=== PATIENT | male | born 1945 | race Caucasian/White ===

== ENCOUNTER 2021-12-07 08:05 | Emergency (ER) | payer MEDICARE, SELFPAY ==
[2021-12-07 08:10] VITALS: BP 175/94; PULSE 53; RESP 18; TEMP 36.6; O2SAT 96; BMI 26.6
--- NOTE | 2021-12-07 08:17 | ED.GENADULT ---
HPI - General Adult General Time Seen by Provider: 08:18 Date Seen: 12/07/21 Chief complaint: Back Injury/Pain Stated complaint: fall/severe back pain Time Seen by Provider: 12/07/21 08:12 Source: patient and RN notes reviewed Mode of arrival: ambulatory Limitations: no limitations History of Present Illness HPI narrative: Patient is a 76-year-old male whom is coming in with left low back pain. His reports them to be quite stoic and not someone who would use the ER. On Tuesday he was pulling a 2 wheeled cart up stairs and lost his balance, falling backwards landing over log. He is not having any pain radiating into the legs at all. It is isolated in the left low back. Walking or moving seem to be the worst. He is sleeping okay. Once he lies down it seems to feel better. There is no numbness or tingling in his legs. He did not hit his head, no loss of consciousness. He is on an 81 mg aspirin daily but no other blood thinners. Devora has been helping. He last used some about an hour and a half ago. He has not tried any Tylenol. He has used some narcotics in the past for surgeries, does not remember anything that he does not tolerate. He does have a history of a back surgery with plating in his lumbar spine about 20 some years ago. He had a fall about 20 ft and sounds like he had a compression fracture that required stabilization. This injury happened about 2 days ago, today is Tuesday. Related Data Home Medications Medication Instructions Recorded Confirmed finasteride 5 mg tablet mg 12/07/21 metoprolol succinate 25 mg mg PO 12/07/21 tablet,extended release 24 hr rosuvastatin 20 mg tablet mg 12/07/21 Allergies Allergy/AdvReac Type Severity Reaction Status Date / Time No Known Drug Allergies Allergy Verified 12/07/21 08:15 Review of Systems Status of ROS: Reports: 10 or more systems reviewed and unremarkable except as noted in History and below PFSH PFS Social History Smoking Status: Former smoker What tobacco products do you use: cigarettes Smoking packs per day: 20 Smoking cigarettes per day: 400.0 Years smoked: 20 Smoking pack-years: 400.00 Smoking quit date/years: >15 years ago Do you use any of these nicotine containing products: None How often do you have a drink containing alcohol: 2-3 times a week How many standard drinks containing alcohol do you have on a typical day: 1 or 2 How often do you have six or more drinks on one occasion: Monthly AUDIT-C Alcohol total score: 5 Non-prescribed substance use: denies use service: No Exam Const: Vital Signs, click to edit/add: Vital Signs - 24 hr 12/07/21 08:10 12/07/21 09:16 Temperature 97.8 F 98.5 F Pulse Rate [Right Pulse Oximeter] 53 L 52 L Respiratory Rate 18 16 Blood Pressure [Le ft Upper Arm] 175/94 H 144/81 H Pulse Oximetry 96 96 Oxygen Delivery Me thod Room Air Room Air Documenting provider has reviewed patient's vital signs: yes Common normals: average body habitus, oriented x3, no limitations, healthy appearing, alert and well nourished General appearance: cooperative and comfortable (But gets some pain with movement) Other: With moving, he will grab at his left low back area. Describes acute pain with movement. HENMT: Common normals: normocephalic, head/scalp atraumatic and hearing grossly normal bilaterally Head and scalp: normocephalic and atraumatic Eye: Common normals: PERRL, EOMs intact bilaterally, conjunctivae normal and no scleral icterus Conjunctiva: conjunctiva(e) normal Pupil: PERRL Neck & C-Spine: Common normals: full ROM, no lymphadenopathy, supple, no meningeal signs, no JVD and thyroid normal Thyroid: thyroid normal Chest: Common normals: inspection of chest normal Resp: Common normals: normal respiratory effort, no retractions, no use of accessory muscles and clear to auscultation bilaterally Auscultation: clear to auscultation bilaterally Cardio: Common normals: no JVD, regular rate, regular rhythm, S1 normal heart sound, S2 normal heart sound, no gallops, no clicks, no murmurs and no rub Rate: regular rate Rhythm: regular rhythm Heart sounds: S1 normal and S2 normal : Common normals: no CVA tenderness Bladder/kidney exam: no CVA tenderness Back & Pelvis: Common normals: no CVA tenderness, thoracic and lumbar spine normal to inspection, no thoracic nor lumbar tenderness and straight leg raise negative bilaterally Other: Has palpable tenderness more over the top of the left SI joint. He states it hurts when I palpate over that area. There is no visible skin changes, no palpable abnormalities other than the pain. He has a well-healed midline scar over the lumbar area. Extremity: Common normals: normal to inspection, full ROM, normal capillary refill (Also has normal distal sensation), no joint enlargement, no clubbing, cyanosis or edema, no calf tenderness and no pedal edema Neuro: Common normals: oriented x3 Sensorium/orientation: alert Meningeal signs: no meningeal signs Course Course Hospital Course: Reviewed with patient and his that we will give a dose of Tylenol. I am ordering a 1000 mg. I reviewed with them that I would like to use Tylenol as the base and build from there. We certainly will work on his pain management and consider options upon discharge. We will be obtaining lumbar spine and SI joints, plain films. We need to ensure no acute traumatic significant fracture. This certainly could be musculoskeletal. Reevaluation(s) Reevaluation #1: Patient is leaving AMA as he needs to get to the bank. He is neurologically intact. Have discussed with them that I have contacted [facility], his images are down at [facility] and thus I hopefully will be able to talk to someone at this point. With the L1 and L2 transverse process fracture, these are typically is stable finding but he understands that this is beyond my expertise. I have spoken with 1 of the triage nurses at 12:22 p.m.. She will be attempting to get be in contact with 1 of the physicians. The meantime, the patient has opted to sign VERNONIA. He understands that I am still going to talk to this physician, may need him to do further treatment or return based on my conversation that is pending. Time: 12:30 Consultations Consultation #1: Spoke with radiology regarding the x-ray findings. The radiologist did agree that we should proceed with lumbar CT just to ensure that there were no acute findings with this broken L4 pedicle screw. I have let the patient know. At this time his pain is good, no pain. He is sitting in a chair. He agrees to proceeding with a lumbar CT. Time: 09:40 Consultation #2: Spoke with Dr. Hardwick from [facility]. The L3 screw being broken is not new. He can see it on at abdomen pelvis CT from March 2020. As for the other findings, he states it would just be brace for comfort, pain management. Reviewed with him that we would not probably get a TLSO done in a timely fashion but could do pain management and physical therapy. He thought that was appropriate. I will let the patient know the findings and my discussion with Dr. Hardwcik. Time: 12:35 Vital Signs Vital signs: Initial Vital Signs Temperature 97.8 F 12/07/21 08:10 Temperature Source Temporal Artery Scan 12/07/21 08:10 Pulse Rate 53 L 12/07/21 08:10 Respiratory Rate 18 12/07/21 08:10 Blood Pressure 175/94 H 12/07/21 08:10 Blood Pressure Mean 121 12/07/21 08:10 Blood Pressure Position Sitting 12/07/21 08:10 Pulse Oximetry 96 12/07/21 08:10 Oxygen Delivery Method 12/07/21 08:10 Vital Signs Temperature 97.8 F 12/07/21 08:10 Pulse Rate 53 L 12/07/21 08:10 Respiratory Rate 18 12/07/21 08:10 Blood Pressure 175/94 H 12/07/21 08:10 Pulse Oximetry 96 12/07/21 08:10 Oxygen Delivery Method 12/07/21 08:10 Temperature 98.5 F 12/07/21 09:16 Pulse Rate 52 L 12/07/21 09:16 Respiratory Rate 16 12/07/21 09:16 Blood Pressure 144/81 H 12/07/21 09:16 Pulse Oximetry 96 12/07/21 09:16 Oxygen Delivery Method 12/07/21 09:16 Medical Decision Making Imaging Data X-ray sacroiliac joints: Attestation: I have reviewed the pertinent imaging results. Radiologist's impression: Patient: AMARI ADDISON Facility:?[facility] Patient ID:?[id number] Site Patient ID:?[id number]. Site :?1945 Study:?XRay Pelvis Bilateral SI JOINTS 3V-12/07/2021 9:05:48 AM Ordering Physician:Rommel Pandya Final Report: Indication: FALL, SI JOINT PAIN Technique: 3 views SI joints Comparison: None Findings: SI joints normal. No diastasis. Intact pubic rami and proximal femurs. Impression: No sign of acute injury. Dictated by Rico Cordero MD @ 12/07/2021 9:12:28 AM (Electronic Signature) X-ray lumbar spine: Attestation: I have reviewed the pertinent imaging results. Radiologist's impression: Patient: AMARI ADDISON Facility:?[facility] Patient ID:?[id number] Site Patient ID:?[id number]. Site :?1945 Study:?XRay Spine Lumbar 2 VIEW-12/07/2021 9:05:25 AM Ordering Physician:?Rmoulo Pandya Final Report: INDICATION: FALL, PAIN TECHNIQUE: 3-view lumbar spine. COMPARISON: none FINDINGS: Posterior fusion L2-L4. Broken L4 pedicle screw. Chronic wedging L3. Dense vascular calcifications. Prominent anterior spurring L1-2. Facet degeneration L4-5 and L5-S1. Chronic wedging T12. IMPRESSION: Broken pedicle screw at L4. No acute fractures. Dictated by Rico Cordero MD @ 12/07/2021 9:11:03 AM (Electronic Signature) CT- Other: Attestation: I have reviewed the pertinent imaging results. Radiologist's impression: Patient: AMARI ASHERAH Facility:?[facility] Patient ID:?[id number] Site Patient ID:?[id number]. Site :?1945 Study:?CT Spine Lumbar W/O-12/07/2021 10:15:39 AM Ordering Physician:Rommel Pandya Final Report: Indication: FALL, LBP, BROKEN PEDICLE SCREW ON XR Technique: Noncontrast axial CT of the lumbar spine with coronal and sagittal reformats are provided. Comparison: No prior studies are available for comparison at this institution. Lumbar radiograph 12/07/2021 Findings: Minimally displaced fracture through the left L1 and L2 transverse processes, potentially acute. There is mild straightening of lumbar lordosis. Normal clear tree is based on 5 lumbar-type vertebral bodies. Postoperative changes of L2-L4 posterior-lateral instrumented fusion with pedicle screws at the L2 and L4 levels joined by vertical rods. There is a fracture in the proximal 3rd of the left L4 pedicle screw. Chronic T12 and L3 superior endplate compression fracture. There is posterior osseous fusion of L2-L4 bilaterally. 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 T12-L1: No significant spinal canal stenosis or neural foramen narrowing. L1-2: Severe interspace narrowing. Mild disc bulge. Laminectomy changes. No significant spinal canal stenosis. Moderate left and mild right neural foramen narrowing. L2-3: Laminectomy and postop changes. No significant bony spinal canal stenosis or neural foramina narrowing. L3-4: Laminectomy postoperative changes. No significant bony spinal canal stenosis or neural foramina narrowing L4-5: Disc bulge, facet arthrosis and ligamentum flavum buckling results in moderate spinal canal stenosis. Mild neural foramen narrowing bilaterally. L5-S1: Advanced facet arthrosis right greater than left. Mild right subarticular recess narrowing. Moderate right neural foramen narrowing. No left neural foramina narrowing. Right iliac crest bone graft donor site. Impression: 1. Postoperative changes of L2-L4 posterior-lateral instrumented fusion with pedicle screws at the L2 and L4 levels joined by vertical rods. Laminectomy changes at L2 and L3. There is posterior osseous fusion of L2-L4 bilaterally. 2. There is a fracture in the proximal 3rd of the left L4 pedicle screw. 3. Minimally displaced fracture through the left L1 and L2 transverse processes, potentially acute. Chronic T12 and L3 superior endplate compression fracture. 4. Allowing for streak artifact from hardware, no significant spinal canal stenosis. Please note that all CT scans at this facility use dose modulation, iterative reconstruction, and/or weight-based dosing when appropriate to reduce radiation dose to as low as reasonably achievable. Dictated by Rico Young MD @ 12/07/2021 10:56:24 AM (Electronic Signature) Discharge Plan Discharge Clinical Impression: Closed fracture of transverse process of lumbar vertebra, Fall Additional Instructions: Did call patient back at 3:45 p.m. in gave him the recommendations as per Dr. Hardwick. The L3 screw break in the pedicle is not new. For the back issues, can consider doing TLSO brace, would have to get a referral through his primary care provider. Tylenol and/or ibuprofen per bottle directions for comfort. If this was not controlling pain can follow up with primary care provider for further pain management. Otherwise consider physical therapy as this may be beneficial, can get referral from primary care provider. Verbal instructions given over phone Prescriptions: No Action metoprolol succinate 25 mg tablet extended release 24 hr PO finasteride 5 mg tablet rosuvastatin 20 mg tablet Follow Up/Referrals: Osorio Galvan MD [Primary Care Provider] - Stand Alone Forms: [employer] Info Instructions Discharge Comment: pt left AMA at 12:30, discussed with patient physician will be calling.
--- NOTE | 2021-12-07 08:26 | CRLHL7_ITS ---
For Patients: As a result of the Cures Act, medical imaging exams and procedure reports are released immediately into your electronic medical record. You may view this report before your referring provider. If you have questions, please contact your health care provider. INDICATION: FALL, PAIN TECHNIQUE: 3-view lumbar spine. COMPARISON: none FINDINGS: Posterior fusion L2-L4. Broken L4 pedicle screw. Chronic wedging L3. Dense vascular calcifications. Prominent anterior spurring L1-2. Facet degeneration L4-5 and L5-S1. Chronic wedging T12. IMPRESSION: Broken pedicle screw at L4. No acute fractures. Dictated by Rico Cordero MD @ 12/07/2021 9:11:03 AM (Electronically Signed)
--- NOTE | 2021-12-07 08:26 | CRLHL7_ITS ---
For Patients: As a result of the Cures Act, medical imaging exams and procedure reports are released immediately into your electronic medical record. You may view this report before your referring provider. If you have questions, please contact your health care provider. Indication: FALL, SI JOINT PAIN Technique: 3 views SI joints Comparison: None Findings: SI joints normal. No diastasis. Intact pubic rami and proximal femurs. Impression: No sign of acute injury. Dictated by Rico Cordero MD @ 12/07/2021 9:12:28 AM (Electronically Signed)
[2021-12-07] MEDS: ACETAMINOPHEN 500 MG TABLET 1000 MG PO (08:31)
--- NOTE | 2021-12-07 08:45 | PC.NURSE ---
pt to radiology, walk with sba.
[2021-12-07 09:16] VITALS: BP 144/81; PULSE 52; RESP 16; TEMP 36.9; O2SAT 96
--- NOTE | 2021-12-07 09:39 | CRLHL7_ITS ---
For Patients: As a result of the Century Cures Act, medical imaging exams and procedure reports are released immediately into your electronic medical record. You may view this report before your referring provider. If you have questions, please contact your health care provider. Indication: FALL, LBP, BROKEN PEDICLE SCREW ON XR Technique: Noncontrast axial CT of the lumbar spine with coronal and sagittal reformats are provided. Comparison: No prior studies are available for comparison at this institution. Lumbar radiograph 12/07/2021 Findings: Minimally displaced fracture through the left L1 and L2 transverse processes, potentially acute. There is mild straightening of lumbar lordosis. Normal clear tree is based on 5 lumbar-type vertebral bodies. Postoperative changes of L2-L4 posterior-lateral instrumented fusion with pedicle screws at the L2 and L4 levels joined by vertical rods. There is a fracture in the proximal 3rd of the left L4 pedicle screw. Chronic T12 and L3 superior endplate compression fracture. There is posterior osseous fusion of L2-L4 bilaterally. 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 T12-L1: No significant spinal canal stenosis or neural foramen narrowing. L1-2: Severe interspace narrowing. Mild disc bulge. Laminectomy changes. No significant spinal canal stenosis. Moderate left and mild right neural foramen narrowing. L2-3: Laminectomy and postop changes. No significant bony spinal canal stenosis or neural foramina narrowing. L3-4: Laminectomy postoperative changes. No significant bony spinal canal stenosis or neural foramina narrowing L4-5: Disc bulge, facet arthrosis and ligamentum flavum buckling results in moderate spinal canal stenosis. Mild neural foramen narrowing bilaterally. L5-S1: Advanced facet arthrosis right greater than left. Mild right subarticular recess narrowing. Moderate right neural foramen narrowing. No left neural foramina narrowing. Right iliac crest bone graft donor site. Impression: 1. Postoperative changes of L2-L4 posterior-lateral instrumented fusion with pedicle screws at the L2 and L4 levels joined by vertical rods. Laminectomy changes at L2 and L3. There is posterior osseous fusion of L2-L4 bilaterally. 2. There is a fracture in the proximal 3rd of the left L4 pedicle screw. 3. Minimally displaced fracture through the left L1 and L2 transverse processes, potentially acute. Chronic T12 and L3 superior endplate compression fracture. 4. Allowing for streak artifact from hardware, no significant spinal canal stenosis. Please note that all CT scans at this facility use dose modulation, iterative reconstruction, and/or weight-based dosing when appropriate to reduce radiation dose to as low as reasonably achievable. Dictated by Rico Young MD @ 12/07/2021 10:56:24 AM (Electronically Signed)
--- OUTSIDE RECORDS SUMMARY | 2021-12-07 09:56 | XMS_ITS | Clinical Summary ---
:1945 Author Organization [facility] Address [address] [place] [address] Care Team Providers Name Role Phone Unavailable Primary Care Provider Unavailable Source Comments Patient records contain information from all sites at [facility]. For routine questions regarding patient records, call [phone] during business hours, M-F 8:00 AM - 5:00 PM Central Time. Record requests for emergency care only can be directed to [phone] at any time.[facility] Allergies Active Allergy Reactions Severity Noted Date Comments Atorvastatin Myalgia 05/06/2014 Citalopram Tinnitus 01/16/2020 Medications Medication Sig Dispensed Refills Start Date End Date Status cholecalciferol, Take 1,000 Units 0 07/22/2016 Active vitamin D3, 25 mcg by mouth daily. (1,000 Unit) tablet valACYclovir (VALTREX) Take 1 g by mouth 0 0 Active 1000 mg tablet as needed. zinc chelated 50 mg Take 50 mg by 0 01/16/2020 Active tablet tablet mouth daily. rosuvastatin (CRESTOR) Take 20 mg by 0 03/19/2020 Active 20 mg tablet mouth at bedtime as needed. Use as directed by primary care provider. pyridoxine, vitamin Take 25 mg by 0 01/16/2020 Active B6, (VITAMIN B6) 25 mg mouth daily. tablet nitroglycerin Place 0.4 mg under 0 03/19/2020 Active (NITROSTAT) 0.4 mg SL the tongue every 5 tablet (five) minutes as needed for chest pain (Max 3 doses). If no relief 5 minutes after the 1st dose, seek medical attention immediately. May take up to 2 additional doses if needed. metoprolol succinate Take 25 mg by 0 01/28/2020 Active (TOPROL-XL) 25 mg 24 mouth daily. hr tablet ferrous sulfate 325 mg Take 325 mg by 0 04/02/2020 Active (65 mg iron) DR tablet mouth daily. finasteride (PROSCAR) Take 1 tablet (5 30 tablet 0 04/16/2020 Active 5 mg tablet mg total) by mouth daily. sennosides-docusate Take 1 tablet by 0 04/15/2020 Active sodium (SENOKOT-S) mouth 2 (two) 8.6-50 mg per tablet times a day. aspirin [address] Take 1 tablet (81 90 tablet 3 07/15/2020 Active tablet mg total) by mouth daily. apixaban (ELIQUIS) 2.5 Take 2.5 mg by 0 04/30/2020 Active mg tablet mouth. VITAMIN B COMPLEX ORAL Take 1 tablet by 0 08/05/2020 Active mouth. sennosides (SENOKOT) Take 8.6 mg by 0 08/05/2020 Active 8.6 mg tablet mouth. Active Problems Problem Noted Date False Passage Urethra Prostatic 05/15/2020 Hematuria 04/12/2020 Urethral False Passage 04/10/2020 Anemia Posthemorrhagic Acute (Blood Loss Anemia) 04/10 Hematuria Gross 04/10/2020 Change Mental Status 04/10/2020 Hypotension 04/10/2020 Herpes Genitalis 04/10/2020 Hypokalemia 04/10/2020 Immunizations Name Administration Dates Next Due Influenza, Unspecified 01/02/2013 Social History Tobacco Use Types Packs/Day Years Used Date Smoking Tobacco: Former Smokeless Tobacco: Never Alcohol Habits Answer Date Recorded How often do you have a drink containing alcohol? 2-3 times a week 05/11/2020 How many drinks containing alcohol do you have on a 1 or 2 05/11/2020 typical day when you are drinking? How often do you have six or more drinks on one Never 05/11/2020 occasion? Comment: Not asked Social Isolation Answer Date Recorded In a typical week, how many times do you Twice a week 05/11/2020 talk on the phone with family, friends, or neighbors? How often do you get together with friends Once a week 05/11/2020 or relatives? How often do you attend sikh or religion Never 05/11/2020 services? Do you belong to any clubs or organizations Yes 05/11/2020 such as sikh groups, unions, fraternal or athletic groups, or school groups? How often do you attend meetings of the More than 4 times pe r year 05/11/2020 clubs or organizations you belong to? Are you now , , , Living with partner 05/11/2020 , never or living with a partner? Physical Activity Answer Date Recorded On average, how many days per week do you engage in moderate 0 days 05/11/2020 to strenuous exercise (like walking fast, running, jogging, dancing, swimming, biking, or other activities that cause a light or heavy sweat)? On average, how many minutes do you engage in exercise at No t asked this level? Stress Answer Date Recorded Do you feel stress - tense, restless, nervous, or anxious, N ot at all 05/11/2020 or unable to sleep at night because your mind is troubled all the time - these days? Financial Resource Strain Answer Date Recorded How hard is it for you to pay for the very basics like Not v meghana hard 05/11/2020 food, housing, medical care, and heating? Food Insecurity Answer Date Recorded Within the past 12 months, you worried that your food would Never true 05/11/2020 run out before you got money to buy more. Within the past 12 months, the food you bought just didn't N ever true 05/11/2020 last and you didn't have money to get more. Transportation Needs Answer Date Recorded In the past 12 months, has lack of transportation kept you f rom No 05/11/2020 medical appointments or from getting medications? In the past 12 months, has lack of transportation kept you f rom No 05/11/2020 meetings, work, or getting things needed for daily living? Education Answer Date Recorded What is the highest level of school Master's degree (e.g., M A, MS, 05/11/2020 you have completed or the highest Mani, MEd, FOUNDRY PROCESS ENGINEER, BERTA) degree you have received? Sex Assigned at Date Recorded Not on file Last Filed Vital Signs Vital Sign Reading Time Taken Comments Blood Pressure 114/62 07/15/2020 11:15 AM CDT Pulse 46 07/15/2020 11:15 AM CDT Temperature 36.7 ??C (98.1 ??F) 04/15/2020 3:28 PM PARENT AIDE Respiratory Rate 16 04/15/2020 3:28 PM PARENT AIDE Oxygen Saturation 95% 04/15/2020 3:28 PM PARENT AIDE Inhaled Oxygen Concentration - - Weight 82.9 kg (182 lb 12.2 oz) 07/15/2020 11:12 AM CDT Height 168.9 cm (5' 6.5) 07/15/2020 11:12 AM CDT Body Mass Index 29.06 07/15/2020 11:12 AM CDT Plan of Treatment Health Maintenance Due Date Last Done Comments Hepatitis C Screening 1945 Depression Screening (Annual 03/28/2021 PHQ-2) Fall Risk Screen (Annual) 03/28/2021 Influenza Vaccine (#1) 2022 12/24/2020, 12/06/2019, 01/03/2019, Additional history exists DTaP,Tdap,and Td Vaccines (2 - Td 07/28/2022 07/28/2012 or Tdap) Pneumococcal vaccine (65+ years) Completed 03/27/2018, Zoster Vaccines Completed 07/05/2018, 04/19/2018 COVID-19 Vaccine Completed 06/30/2021, 12/24/2020, 06/12/2020, Additional history exists Insurance Payer Benefit Plan / Subscriber ID Effective Dates Phone Addre ss Type Group MEDICARE MEDICARE A AND [id number] 1997-[place] [address] [place] [id number] AAR AARP [id number] 2020-Presen [phone] [id number] [place] [address] Advance Directives For more information, please contact: [phone] Latest Code Status on File Code Status Date Activated Date Inactivated Comments Full Code 04/12/2020 1:07 PM 04/15/2020 6:07 PM Full Code: Discussed 04/12/2020
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
--- OUTSIDE RECORDS SUMMARY | 2021-12-07 09:57 | XMS_ITS | Encounter Summary ---
:1945 Author Organization [facility] Address [address] [place] [address] Care Team Providers Name Role Phone Unavailable Primary Care Provider Unavailable Encounter Details Date Type Department Care Team Description 04/11/2020 Documentation Division of [facility] Maritza Keys D .O. Medicine in [place], [place] [address] [place] [address] Social History Tobacco Use Types Packs/Day Years Used Date Smoking Tobacco: Former Alcohol Habits Answer Date Recorded How often [...] or relatives? How often do you attend yazidism or yazdanism Never 05/11/2020 services? Do you belong to any clubs or organizations Yes 05/11/2020 such as yazidism groups, unions, fraternal or athletic groups, or [...] or getting things needed for daily living? Sex Assigned at Date Recorded Not on file documented as of this encounter Progress Notes Maritza Keys D.O. - 04/11/2020 5:10 PM CST Chief Complaint: Intentional Rh Group Switch Due to the patient's urgent need for red blood cells, and given our current inventory limitations, the patient was intentionally switched from Rh-negative to Rh-positive red blood cells. This represents a risk to the patient in forming anti-D in the future; this however would be identified by standardantibody screening and compatible blood products would be provided at that time. Dr. Reyes ([phone]) was notified on 04/11/19 at 1710. Please page theTransfusion Medicine service pager ([phone]) with any questions. Maritza Keys D.O. EGNATION OPERATOR documented in this encounter Plan of Treatment Not on filedocumented as of this encounter Visit Diagnoses Not on filedocumented in this encounter
--- OUTSIDE RECORDS SUMMARY | 2021-12-07 09:57 | XMS_ITS | Encounter Summary ---
:1945 Author Organization [facility] Address [address] [place] [address] Care Team Providers Name Role Phone Unavailable Primary Care Provider Unavailable Reason for Referral Outpatient (Routine) - Closed Specialty Diagnoses / Procedures Referred By Contact Refer red To Contact Vascular Medicine Radu Draper M. D. [facility] [address] [place] [address]20 6 Referral ID Status Reason Start Date Expiration Date Visits Requ ested Visits Authorized [id number] Closed 04/28/2020 04/28/2021 1 1 Scheduling Instructions Please schedule for after the followup U S. Thanks, Radu Draper MD [facility] INSERTER Outpatient (Routine) - Closed Specialty Diagnoses / Procedures Referred By Contact Refer red To Contact Diagnoses Thrombosis Deep Vein Acute Lower Extremity Bilateral (HCC) Radu Draper M.D. [facility] Procedures US Lower Extremity Veins Bilateral [address] [place] [address] 5820 6 Referral ID Status Reason Start Date Expiration Date Visits Requ ested Visits Authorized [id number] Closed 04/28/2020 04/28/2021 1 1 INSERTER Outpatient (Routine) - Closed Specialty Diagnoses / Procedures Referred By Contact Refer red To Contact Vascular Radu Otto M. D. [facility] [address] [place] [address] 5820 6 Referral ID Status Reason Start Date Expiration Date Visits Requ ested Visits Authorized [id number] Closed 04/28/2020 04/28/2021 1 1 Scheduling Instructions Please attempt to do this visit when he has a f/u in urology and hopefully after the urology appointment. INSERTER Reason for Visit Outpatient (Routine) - Closed Specialty Diagnoses / Procedures Referred By Contact Refer red To Contact Vascular Medicine Diagnoses Thrombosis Deep Vein Acute Lower Extremity Bilateral (HCC) Nga Reyes M.D. [place] [address] [place] [address] Referral ID Status Reason Start Date Expiration Date Visits Requ ested Visits Authorized [id number] Closed 04/14/2020 04/14/2021 1 1 Encounter Details Date Type Department Care Team Description 04/28/2020 Comprehensive Visit Department of Radu Draper Deep Vein Vascular Medicine norris Lau M.D. Acute [place], [place] [address] Extremity Bilateral [address] [facility], (HCC) [facility] [id number] [phone] Social History Tobacco Use Types Packs/Day Years [...] or relatives? How often do you attend synagogue or catholic Never 05/11/2020 services? Do you belong to any clubs or organizations Yes 05/11/2020 such as synagogue groups, unions, fraternal or athletic groups, or [...] on file documented as of this encounter Last Filed Vital Signs Vital Sign Reading Time Taken Comments Blood Pressure 103/76 04/28/2020 1:41 PM RATE INSERTER Pulse 64 04/28/2020 1:41 PM RATE INSERTER Temperature - - Respiratory Rate - - Oxygen Saturation - - Inhaled Oxygen Concentration - - Weight 83.3 kg (183 lb 10.3 oz) 04/28/2020 1:39 PM RATE INSERTER Height 170 cm (5' 6.93) 04/28/2020 1:39 PM RATE INSERTER Body Mass Index 28.82 04/28/2020 1:39 PM RATE INSERTER documented in this encounter Consult Notes Radu Draper M.D. - 04/28/2020 2:00 PM CST REFERRAL SOURCE Nga Reyes M.D. [address] [place] [address] I reviewed my notes from when he was in the hospital, specifically my note dated 04/14/2020. SUBJECTIVE CHIEF COMPLAINT / REASON FOR VISIT Mr. Samayoa is a 74 y.o. 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 He was released from the hospital on 04/15/2019 on Apixaban at modified dose of 2.5 mg po BID along with ASA every other day. The Clopidogrel was formally discontinued. He was also advised to wear compression garments. He now presents for short interval follow-up regarding ongoing management of bilateral distal deep vein thrombosis in the setting of recent major genitourinary hemorrhage and significant arterial disease requiring recent carotid endarterectomy and hence the need for some level of antiplatelet therapy. Today's repeat ultrasound reviewed. HISTORY OF PRESENT ILLNESS His Molina catheter remains in place. Thankfully, his urine has been completely clear. The plan, according to the patient, is to have the catheter remain in place for an additional 2 weeks. I believe hehas follow-up with Urology at that time. He remains on Eliquis at the modified dose of 2.5 mg p.o. b.i.d.. Although he was supposed to be taking aspirin 81 mg p.o. every other day, the patient was quite fearful of taking the aspirin in addition to the Eliquis and hence, did not take this. The patient is no longer taking Plavix. He denies any new chest pain or new shortness of breath. He denies any signs or symptoms which wouldsuggest stroke. He denies visual changes. He does report ongoing residual left upper limb symptoms from his previous stroke but these have been stable and in fact if anything improving. The patient denies any other bleeding through any other orifice. The patient feels quite steady on his feet. He does not utilize any assistive devices for ambulation. There has been no falls since discharge from the hospital. He has been wearing his new compression garments which she received on discharge from the hospital. The following portions of the patient's history were reviewed as appropriate: allergies, current medications, family history, medical history, social history, surgical history, problem list, labs, diagnostics tests. I reviewed the pertinent clinical notes in the electronic health record. OBJECTIVE VITALS There were no vitals taken for this visit. PHYSICAL EXAMINATION General: No apparent distress. Psychiatric: Alert and oriented. Cardiac: S1 and S2 present. No definite S3 or S4. RRR. He has a soft subtotal bruit heard over the right carotid artery. No definite bruit heard over the left carotid artery. Pulmonary: Clear to auscultation bilaterally with good air exchange to the bases. No adventitious sounds or wheezing. HEENT: Deferred today. GI: The abdomen was soft and nontender with bowel sounds active in all 4 quadrants. No obvious organomegaly appreciated. No obvious pulsations over the aorta. No obvious flank varicosities. No groin lymphadenopathy. Extremities: No evidence of edema whatsoever. Note, I did not remove his compression garments here today. Pulse exam: Upper limb pulses are equal and symmetric. Excellent carotid upstroke. Please note, the patient has soft bilateral common femoral artery systolic bruits. DIAGNOSTIC REVIEW: Lab Results Component Value Date WBC 5.6 04/15/2020 HGB 9.5 (L) 04/15/2020 HCT 30.2 (L) 04/15/2020 MCV 95.3 04/15/2020 PLT 174 04/15/2020 Lab Results Component Value Date NA 143 04/14/2020 CL 107 04/14/2020 CREATININE 0.90 04/14/2020 BUN 7 (L) 04/14/2020 ANIONGAP 9 04/14/2020 GLUCOSE 94 04/14/2020 CALCIUM 8.0 (L) 04/14/2020 Pertinant Vascular studies: Bilateral lower limb standard venous duplex done earlier today: Interval improvement in now subacute DVT of the right posterior tibial, soleal and peroneal veins and the left peroneal vein and subacute SVT of the right small saphenous vein. 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 ASSESSMENT / PLAN 1. Essentially asymptomatic venous thromboembolism including left lower lobe pulmonary embolism discovered on 04/11/2020; asymptomatic right lower limb right soleal and peroneal vein deep vein thrombosis discovered on 04/12/2020; and finally interval development of right posterior tibial and left peroneal vein DVT that was new when compared to ultrasound done 2 days prior. Please note, because of hismajor urologic bleeding issues, he was not started on intermediate dose apixaban until after the newbilateral distal lower limb deep vein thromboses was discovered on 04/14/2020. He now presents againasymptomatic from a clinical standpoint with a short interval bilateral lower limb ultrasound showing stability if not some improvement in the overall ultrasonographic characteristics of his ???distal?? deep vein thrombosis and no new pulmonary symptoms to suggest worsening and/or progression of pulmonary embolism. At the same time, there has been no evidence of recurrent urologic bleeding as is evid enced by clear urine in the leg bag. 2. History of recent acute ischemic stroke from right carotid artery critical stenosis status post right carotid endarterectomy. Currently not on antiplatelet agents due to major urologic bleeding. I do note that he still has an ongoing soft bruit over the site of previous right carotid endarterectomy. 3. Asymptomatic peripheral arterial disease as is evidenced by soft bruits over both common femoral arteries. Recommendations: 1. Given the improvements seen on today's ultrasound coupled with the lack of urologic bleeding. I think it is prudent that he continue with only the modified dose of apixaban and to continue to foregobaby aspirin therapy at least until the catheter is removed and he proves to us that he is able to urinate and shows no sign of blood in the urine. As he does have a follow-up coming up in Urology herein 2 weeks, I am hoping to see him at that time to reassess whether we can carefully add back his low-dose antiplatelet agent every other day for 1 month and then if no signs of urologic bleeding, progressed to daily low-dose aspirin along with the apixaban. 2. As the low-dose apixaban appears to be therapeutic with a nice interval evolution of the venous thromboembolism, coupled with the lack of urologic bleeding, I propose that we continue on this dose of apixaban. I would like to follow-up with an ultrasound of the lower limbs at the 3 month anniversary to further assess. At that time, if there is little to no venous thromboembolism found, then I think we could probably forego further blood thinner therapy altogether. As it stands right now, I do notsee any reason to subject him to repeat advanced imaging of the thorax. 3. I think walking would be beneficial for his venous thromboembolism particularly if he keeps wearing the compression garments. Of course, I walking program is also beneficial for his peripheral arterial disease. We did talk about that in some detail today. Please note, I spent approximately 1 hour with him today interviewing and examining the patient, reviewing the medical record, educating the patient and coming up with a game plan. I will make certain this note gets to his primary urologist as well. Radu Draper MD [facility] INSERTER documented in this encounter Plan of Treatment Scheduled Referrals Name Type Priority Associated Diagnoses Order S chedule Vascular Medicine Outpatient Referral Routine Exp ected: office visit 05/16/2020 (clinic) (Approximate), Expires: 04/28/2023 Vascular Medicine Outpatient Referral Routine Exp ected: office visit 07/14/2020 (clinic) (Approximate), Expires: 04/28/2023 documented as of this encounter Results US Lower Extremity Veins Bilateral (07/15/2020 10:10 AM CDT) Anatomical Region Laterality Modality Lower Extremity, Ultrasound RST LOS, Ultrasound ARZ LOS, Roberto ateral Ultrasound Ultrasound FLA LOS Specimen (Source) Anatomical Collection Method Collection Time Re ceived Time Location / / Volume Laterality 07/15/2020 10:12 AM CDT Impressions 07/15/2020 10:20 AM CDT 1. Negative for acute DVT. ?? 2. Continued evolution of previously see n DVT now with residual wall thickening in the right posterior tibial and perone al veins as well as the bilateral small saphenous veins consistent with post thr ombotic change. ?? Narrative 07/15/2020 10:20 AM CDT EXAM: US LOWER EXTREMITY VEINS BILATERAL Exam performed with color and spectral D oppler analysis. COMPARISON: Ultrasound dated 04/28/2020 FINDINGS: ?? The common femoral, upper d eep femoral, femoral and popliteal veins are widely patent bilaterally, without t hrombus. The posterior tibial, peroneal, soleal and gastrocnemius veins were segm entally visualized bilaterally and are patent where seen without acute thrombus . ??Areas of wall thickening in the right posterior tibial and peroneal veins cons istent with post thrombotic change. The great saphenous veins bilaterally are pa tent and negative for thrombus. Wall thickening in the bilateral small saphen ous veins consistent with post thrombotic change with expected evolutio n compared to the prior exam. ?? Procedure Note Radha Benites M.D., Ph.D. - EXAM: US LOWER EXTREMITY VEINS BILATERAL Exam performed with color and spectral D oppler analysis. COMPARISON: Ultrasound dated 04/28/2020 FINDINGS: The common femoral, upper deep femoral, femoral and popliteal veins are widely patent bilaterally, without t hrombus. The posterior tibial, peroneal, soleal and gastrocnemius veins were segm entally visualized bilaterally and are patent where seen without acute thrombus . Areas of wall thickening in the right posterior tibial and peroneal veins cons istent with post thrombotic change. The great saphenous veins bilaterally are pa tent and negative for thrombus. Wall thickening in the bilateral small saphen ous veins consistent with post thrombotic change with expected evolutio n compared to the prior exam. IMPRESSION: 1. Negative for acute DVT. 2. Continued evolution of previously see n DVT now with residual wall thickening in the right posterior tibial and perone al veins as well as the bilateral small saphenous veins consistent with post thr ombotic change. Radu Draper M.D. IMG US PROCEDURES documented in this encounter Visit Diagnoses Diagnosis Thrombosis Deep Vein Acute Lower Extremi ty Bilateral (HCC) Thrombosis Deep Vein Acute Lower Extremi ty Bilateral (HCC) documented in this encounter
--- OUTSIDE RECORDS SUMMARY | 2021-12-07 09:57 | XMS_ITS | Encounter Summary ---
:1945 Author Organization [facility] Address [address] [place] [id number] Care Team Providers Name Role Phone Unavailable Primary Care Provider Unavailable Reason for Visit Reason Comments Urethral False Passage Outpatient (Routine) - Closed Specialty Diagnoses / Procedures Referred By Contact Refer red To Contact Diagnoses Urethral False Passage Nga Reyes M.D. [facility] Procedures URO Urethral cath removal & voiding trial (UCO/VT) [address] [place], [place] [phone] Referral ID Status Reason Start Date Expiration Date Visits Requ ested Visits Authorized [id number] Closed 04/15/2020 04/15/2021 1 1 Encounter Details Date Type Department Care Team Description 05/15/2020 Procedure visit Department of Urology Estela Reyes M.D. [address] [place] [id number] Urethral False in [place], Chiquita Davies, LMakPTiffanie Passage [place] [address] [place] [phone] Social History Tobacco Use Types Packs/Day Years [...] or relatives? How often do you attend baptism or hindu Never 05/11/2020 services? Do you belong to any clubs or organizations Yes 05/11/2020 such as baptism groups, unions, fraternal or athletic groups, or [...] have completed or the highest Mani, MEd, FENDER FINISHER, BERTA) degree you have received? Sex Assigned at Date Recorded Not on file documented as of this encounter Progress Notes Chiquita Davies L.P.N. - 05/15/2020 9:00 AM CST CHIEF COMPLAINT Reason for visit, urinary catheter removal post: molina catheter placed in emergency room by [facility] on March 10, 2020. IMPRESSION/REPORT/PLAN Nursing Intervention: Patient instilled with 150 mL's sterile normal saline prior to catheter removal. Patient able to void 200 mL's clear pink urine with an ultrasound PVR of 0 mL's. Patient tolerated procedure well. Patient education: use of incontinence pads and leakage of urine , to push fluids , to urinate oftenand to return to clinic if having voiding issues if before 4PM, if after hours to report to their local emergency room if unable to void. RNAL MEDICINE NURSE PRACTITIONER documented in this encounter Plan of Treatment Not on filedocumented as of this encounter Visit Diagnoses Diagnosis Urethral False Passage documented in this encounter
--- OUTSIDE RECORDS SUMMARY | 2021-12-07 09:57 | XMS_ITS | Encounter Summary ---
:1945 Author Organization [facility] Address [address] [place] [address] Care Team Providers Name Role Phone Unavailable Primary Care Provider Unavailable Reason for Visit Outpatient (Routine) - Closed Specialty Diagnoses / Procedures Referred By Contact Refer red To Contact Vascular Medicine Radu Draper M. D. [facility] [address] [place], [place] [address] Referral ID Status Reason Start Date Expiration Date Visits Requ ested Visits Authorized [id number] Closed 04/28/2020 04/28/2021 1 1 Encounter Details Date Type Department Care Team Description 07/15/2020 Office Visit Department of Radu Draper Anticoagulan t Therapy (Primary Dx); Vascular Medicine norris Lau M.D. Thrombosis Deep Vein Acute Lower Extremi ty Bilateral (HCC); [place], [place] [address] Embolus Pulmonary Personal History [address] [place] [id number] [phone] Social History Tobacco Use Types Packs/Day Years [...] or relatives? How often do you attend pentecostal or cheondoism Never 05/11/2020 services? Do you belong to any clubs or organizations Yes 05/11/2020 such as pentecostal groups, unions, fraternal or athletic groups, or [...] have completed or the highest Mani, MEd, BLAST FURNACE CHECKER, BERTA) degree you have received? Sex Assigned at Date Recorded Not on file documented as of this encounter Last Filed Vital Signs Vital Sign Reading Time Taken Comments Blood Pressure 114/62 07/15/2020 11:15 AM CDT Pulse 46 07/15/2020 11:15 AM CDT Temperature - - Respiratory Rate - - Oxygen Saturation - - Inhaled Oxygen Concentration - - Weight 82.9 kg (182 lb 12.2 oz) 07/15/2020 11:12 AM CDT Height 168.9 cm (5' 6.5) 07/15/2020 11:12 AM CDT Body Mass Index 29.06 07/15/2020 11:12 AM CDT documented in this encounter Progress Notes Radu Draper M.D. - 07/15/2020 11:15 AM CDT SUBJECTIVE CHIEF COMPLAINT / REASON FOR VISIT Mr. Samayoa is a 74 y.o. male that I am seeing today for follow up for f/u LLL PE (asymptomatic) and RLE soleal and peroneal vein DVT in setting of major urologic bleed with new DVT RLE PTV and left peroneal vein 2 days after discovery of initial DVT (while AC on hold d/t urologic bleed. H/o also significant for AIS d/t R carotid artery dz s/p R carotid endarterectomy. He also has proven PAD c DIGITAL ADVISOR bilat. He has an upcoming follow-up visit with his vascular surgeon in a few weeks. Back when I re-evaluated him on 05/15/20 I stated: Recommendations: 1. Continue ???modified dose?? apixaban for now. 2. Continue to be cognizant of new symptoms suggestive of new or progressive venous thromboembolism.To date, this has been negative. 3. In 1 week (around May 22, 2020, provided that he is able to spontaneously pass clear urine, propose that we initiate low-dose aspirin at 81 mg p.o. every other day. The reason for adding this medication is given his history of known peripheral arterial disease and recent cerebrovascular accident (acute ischemic stroke emanating from the right carotid artery). Of course, he will have to watch hisurine very closely with this addition. 4. If he tolerates aspirin every other day, it may be conway to simply stay on this dose until the endof June when he is slated for repeat lower limb standard venous duplex. At that time, if there is little to no residual vein thrombosis, I propose that we simply stop Eliquis altogether and then consider daily low- dose aspirin primarily for secondary prevention in light of his proven peripheral arterial disease. Again, it is surmised that his venous thromboembolic event is related to a transient risk factor. 5. It may be conway for him to continue with medical grade graduated compression garments, knee-high for the next 2 years to assist in venous return and at least theoretically decrease the incidence of recurrent venous thromboembolic disease. ?? I did write these instructions out on his after visit summary which was printed for him. I look forward to seeing him back in mid to late June with pre visit bilateral lower limb standard venous duplex. HISTORY OF PRESENT ILLNESS He states that there has been no hematuria whatsoever. He does have some stress related incontinencebut again no bleeding. He remains on apixaban monotherapy a 2.5 mg p.o. b.i.d. tolerating well. He has not started aspirin as of yet. No new cardiopulmonary symptoms. No new lower limb symptoms. He is wearing the compression garments regularly. He does have upcoming re-evaluation in Urology in a few weeks. He believes he will be having avoiding study done at that time. We went through the results of today's repeat follow-up bilateral lower limb standard venous duplex today. The following portions of the patient's history were reviewed and updated as appropriate: allergies,current medications, family history, medical history, social history, surgical history, problem list, labs, diagnostics tests. I reviewed the pertinent clinical notes in the electronic health record. OBJECTIVE PHYSICAL EXAM There were no vitals taken for this visit. There is no height or weight on file to calculate BMI. General: No apparent distress. Psychiatric: Alert and oriented. Cardiac: S1 and S2 present. No definite S3 or S4. Slightly bradycardic rate but normal rhythm. He does have a soft systolic bruit heard over the right carotid artery. No bruit over the left carotid artery. No murmurs or rubs over the pericardium. Pulmonary: Clear to auscultation bilaterally with good air exchange to the bases. No adventitious sounds or wheezing. HEENT: Deferred GI: The abdomen was soft and nontender with bowel sounds active in all 4 quadrants. No obvious organomegaly appreciated. No obvious pulsations over the aorta. Extremities: No asymmetric edema was identified in any lower limb. Please note I did not take his compression garments off today. Excellent distal upper limb pulses. DIAGNOSTIC REVIEW All labs and diagnostic studies were reviewed.I personally reviewed the pertinent diagnostic images,see HPI for details. ASSESSMENT / PLAN History of provoked venous thromboembolism including small thrombus burden pulmonary embolism which was asymptomatic along with bilateral calf vein deep vein thrombosis. On today's ultrasound, his thrombus is essentially matured and represents now only vein wall thickening. He has completed a full 3 months of anticoagulation therapy tolerating well. As such, I recommend discontinuance of further anticoagulation with apixaban. Because of his proven vascular disease, I did suggest that he reinitiate his baby aspirin once he has finish the remaining apixaban. I advised that he take this with food. I suggest that he continue baby aspirin without a stop date. He should continue to use his compression garments for 2 full years past the DVT event. We had a long discussion regarding watching out for signs and symptoms of recurrent venous thromboembolism and both he and his spouse seemed to have a good understanding. He also knows to watch out forany genitourinary hemorrhage upon starting baby aspirin. At this juncture, I do not believe he needs to be seen further in the thrombophilia clinic. I took the liberty of discontinuing the apixaban off of his medication list and adding low-dose aspirin to his medication list. Radu Draper M.D. documented in this encounter Plan of Treatment Not on filedocumented as of this encounter Visit Diagnoses Diagnosis Anticoagulant Therapy - Primary Thrombosis Deep Vein Acute Lower Extremi ty Bilateral (HCC) Embolus Pulmonary Personal History documented in this encounter
--- OUTSIDE RECORDS SUMMARY | 2021-12-07 09:57 | XMS_ITS | Encounter Summary ---
:1945 Author Organization [facility] Address [address] [place] [address] Care Team Providers Name Role Phone Unavailable Primary Care Provider Unavailable Reason for Referral Outpatient (Routine) - Closed Specialty Diagnoses / Procedures Referred By Contact Refer red To Contact Diagnoses Thrombosis Deep Vein Acute Lower Extremity Bilateral (HCC) Radu Draper M.D. [facility] Procedures US Lower Extremity Veins Bilateral [address] [place], [place] [address] Referral ID Status Reason Start Date Expiration Date Visits Requ ested Visits Authorized [id number] Closed 04/28/2020 04/28/2021 1 1 Reason for Visit Outpatient (Routine) - Closed Specialty Diagnoses / Procedures Referred By Contact Refer red To Contact Diagnoses Thrombosis Deep Vein Acute Lower Extremity Bilateral (HCC) Radu Draper M.D. [facility] Procedures US Lower Extremity Veins Bilateral [address] [place], [place] [address] Referral ID Status Reason Start Date Expiration Date Visits Requ ested Visits Authorized [id number] Closed 04/28/2020 04/28/2021 1 1 Encounter Details Date Type Department Care Team Description 07/15/2020 Hospital Encounter Department of Radu Draper Deep Vein Radiology, Junaid Lau M.D. Acute Lower Building, in [address] Extremity Bilateral [place], [place] (HCC) [address] [address] [place], [place] [phone] (Work) [phone] Social History Tobacco Use Types Packs/Day Years [...] or relatives? How often do you attend religious or hindu Never 05/11/2020 services? 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 Sex Assigned at Date Recorded Not on file documented as of this encounter Medications at Time of Discharge Medication Sig Dispensed Refills Start Date End Date apixaban (ELIQUIS) 2.5 Take 2.5 mg by mouth. 0 mg tablet aspirin [address] tablet Take 1 tablet (81 mg 90 tablet 3 total) by mouth daily. cholecalciferol, vitamin Take 1,000 Units by 0 D3, 25 mcg (1,000 Unit) mouth daily. tablet ferrous sulfate 325 mg Take 325 mg by mouth 0 08/2020 (65 mg iron) DR tablet daily. finasteride (PROSCAR) 5 Take 1 tablet (5 mg 30 tablet 0 mg tablet total) by mouth daily. metoprolol succinate Take 25 mg by mouth 0 2019 (TOPROL-XL) 25 mg 24 hr daily. tablet nitroglycerin Place 0.4 mg under 0 03/19/2020 (NITROSTAT) 0.4 mg SL the tongue every 5 tablet (five) minutes as needed for chest pain (Max 3 doses). If no relief 5 minutes after the 1st dose, seek medical attention immediately. May take up to 2 additional doses if needed. pyridoxine, vitamin B6, Take 25 mg by mouth 0 (VITAMIN B6) 25 mg daily. tablet rosuvastatin (CRESTOR) Take 20 mg by mouth 0 02/26 20 mg tablet at bedtime as needed. Use as directed by primary care provider. sennosides-docusate Take 1 tablet by 0 04/15/2020 sodium (SENOKOT-S) mouth 2 (two) times a 8.6-50 mg per tablet day. valACYclovir (VALTREX) Take 1 g by mouth as 0 1000 mg tablet needed. zinc chelated 50 mg Take 50 mg by mouth 0 020 tablet tablet daily. bacitracin 500 unit/gram Apply 1 application 15 g 0 08/11/2020 ointment topically 2 (two) times a day as needed (catheter tip irritation). trospium (SANCTURA) 20 Take 1 tablet (20 mg 20 tablet 1 08/11/2020 mg tablet total) by mouth 2 (two) times a day as needed (bladder spasms). documented as of this encounter Plan of Treatment Not on filedocumented as of this encounter Procedures Procedure Name Priority Date/Time Associated Comments Diagnosis US LOWER RAD - Routine 07/15/2020 10:10 Thrombosis Deep Results for this EXTREMITY VEINS (most inpatients AM CDT Vein Acute Lower proc edure are in BILATERAL and all Extremity the results outpatients) Bilateral (HCC) section. documented in this encounter Results US Lower Extremity Veins [...] consistent with post thr ombotic change. Radu LUIS US PROCEDURES documented in this encounter Visit Diagnoses Diagnosis Thrombosis Deep Vein Acute Lower Extremi ty Bilateral (HCC) documented in this encounter
--- OUTSIDE RECORDS SUMMARY | 2021-12-07 09:57 | XMS_ITS | Encounter Summary ---
:1945 Author Organization [facility] Address [address] [place] [address] Care Team Providers Name Role Phone Unavailable Primary Care Provider Unavailable Reason for Visit Reason Comments Med Refill Encounter Details Date Type Department Care Team Description 05/01/2020 Refill Department of Urology in [place], [facility] jose, Unknown Med Refill [place] [address] [place] [address] Social History Tobacco Use Types Packs/Day [...] or relatives? How often do you attend scientology or caodaism Never 05/11/2020 services? Do you belong to any clubs or organizations Yes 05/11/2020 such as scientology groups, unions, fraternal or athletic groups, or [...] on file documented as of this encounter Miscellaneous Notes Telephone Encounter - Diamond Nance - 05/01/2020 9:38 AM CST Fax received from [facility] in [place], [place] for refill of Eliquis, 2.5 mg po bid and finasteride 5 mg po qd. 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
--- OUTSIDE RECORDS SUMMARY | 2021-12-07 09:57 | XMS_ITS | Encounter Summary ---
:1945 Author Organization [facility] Address [address] [place] [address] Care Team Providers Name Role Phone Unavailable Primary Care Provider Unavailable Reason for Referral Outpatient (Routine) - Closed Specialty Diagnoses / Procedures Referred By Contact Refer red To Contact Diagnoses Thrombosis Deep Vein Acute Lower Extremity Bilateral (HCC) Nga Reyes M.D. [facility] Procedures US Lower Extremity Veins Bilateral [address] [place] [address] Referral ID Status Reason Start Date Expiration Date Visits Requ ested Visits Authorized [id number] Closed 04/14/2020 04/14/2021 1 1 L ROLLER Reason for Visit Outpatient (Routine) - Closed Specialty Diagnoses / Procedures Referred By Contact Refer red To Contact Diagnoses Thrombosis Deep Vein Acute Lower Extremity Bilateral (HCC) Nga Reyes M.D. [facility] Procedures US Lower Extremity Veins Bilateral [address] [place] [address] Referral ID Status Reason Start Date Expiration Date Visits Requ ested Visits Authorized [id number] Closed 04/14/2020 04/14/2021 1 1 Encounter Details Date Type Department Care Team Description 04/28/2020 Hospital Encounter Department of Nga Reyes Deep Vein Radiology, Junaid Corral M.D. Acute Lower Building, in [address] [facility] Extremity Bilateral [place], [place] (HCC) [address] [facility] [address] [place], [place] [phone] (Work) [phone] Social History Tobacco Use Types Packs/Day Years [...] or relatives? How often do you attend adventism or holiness Never 05/11/2020 services? Do you belong to any clubs or organizations Yes 05/11/2020 such as adventism groups, unions, fraternal or athletic groups, or [...] Sig Dispensed Refills Start Date End Date cholecalciferol, vitamin Take 1,000 Units by 0 [...] by mouth 0 020 tablet tablet daily. levoFLOXacin (LEVAQUIN) Take 1 tablet (500 mg 3 tablet 0 0 04/28/2020 05/01/2020 500 mg tablet total) by mouth daily for 3 days. apixaban (ELIQUIS) 2.5 Take 1 tablet (2.5 mg 30 tablet 0 07/15/2020 mg tablet total) by mouth 2 (two) times a day. aspirin [address] tablet Take 1 tablet (81 mg 0 07/15/2020 total) by mouth every other day. bacitracin 500 unit/gram Apply 1 application 15 [...] Comments Diagnosis US LOWER RAD - Routine 04/28/2020 8:53 Thrombosis Deep Results for this EXTREMITY VEINS (most inpatients AM WHEEL ROLLER Vein Acute Lower proc edure are in BILATERAL and all Extremity the results outpatients) Bilateral (HCC) section. documented in this encounter Results US Lower Extremity Veins Bilateral (04/28/2020 8:53 AM WHEEL ROLLER) Anatomical Region Laterality Modality Lower Extremity, Ultrasound RST LOS, Ultrasound ARZ LOS, Roberto ateral Ultrasound Ultrasound FLA LOS Specimen (Source) Anatomical Collection Method Collection Time Re ceived Time Location / / Volume Laterality 04/28/2020 9:04 AM WHEEL ROLLER Impressions 04/28/2020 9:14 AM WHEEL ROLLER Interval improvement in now subacute DVT of the right posterior tibial, soleal and peroneal veins and th e left peroneal vein and subacute SVT of the right small saphenous vein. 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 Narrative 04/28/2020 9:14 AM WHEEL ROLLER EXAM: US LOWER EXTREMITY VEINS BILATERAL Exam performed with color and spectral D oppler analysis. COMPARISON: 04/14/2020 bilateral lower e xtremity venous ultrasound FINDINGS: ?? The common femoral, upper d eep femoral, femoral and popliteal veins are widely patent bilaterally, without t hrombus. No acute DVT identified in the calf vein s. There is been slight improvement in the acute thrombus within the right post erior tibial, soleal and peroneal veins and right small saphenous vein. There ozuna s been slight improvement in the left peroneal vein acute thrombus. Chronic no nocclusive post-thrombotic change is identified in the left small saphenous v ein which was not imaged on the prior study. The great saphenous veins bilaterally ar e patent and negative for thrombus. Procedure Note Mariam Arredondo M.D. - 04/28/2020Form atting of this note might be different from the original. EXAM: US LOWER EXTREMITY VEINS BILATERAL Exam performed with color and spectral D oppler analysis. COMPARISON: 04/14/2020 bilateral lower e xtremity venous ultrasound FINDINGS: The common femoral, upper deep femoral, femoral and popliteal veins are widely patent bilaterally, without t hrombus. No acute DVT identified in the calf vein s. There is been slight improvement in the acute thrombus within the right post erior tibial, soleal and peroneal veins and right small saphenous vein. There ozuna s been slight improvement in the left peroneal vein acute thrombus. Chronic no nocclusive post-thrombotic change is identified in the left small saphenous v ein which was not imaged on the prior study. The great saphenous veins bilaterally ar e patent and negative for thrombus. IMPRESSION: Interval improvement in now subacute DVT of the right posterior tibial, soleal and peroneal veins and th e left peroneal vein and subacute SVT of the right small saphenous vein. 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 Nga LUIS US PROCEDURES documented in this encounter Visit Diagnoses Diagnosis Thrombosis Deep Vein Acute Lower Extremi ty Bilateral (HCC) documented in this encounter
--- OUTSIDE RECORDS SUMMARY | 2021-12-07 09:57 | XMS_ITS | Encounter Summary ---
:1945 Author Organization [facility] Address [address] [place] [address] Care Team Providers Name Role Phone Unavailable Primary Care Provider Unavailable Reason for Visit Reason Comments Phone Contact Encounter Details Date Type Department Care Team Description 06/03/2020 Clinical Communication Department of Urology Alexandro Garrison, [place] [address] [facility] [address] [place] [phone] Social History Tobacco Use Types Packs/Day Years [...] or relatives? How often do you attend restorationism or anabaptist Never 05/11/2020 services? Do you belong to any clubs or organizations Yes 05/11/2020 such as restorationism groups, unions, fraternal or athletic groups, or [...] have completed or the highest Mani, MEd, PIANO PLAYER, BERTA) degree you have received? Sex Assigned at Date Recorded Not on file documented as of this encounter Miscellaneous Notes Telephone Encounter - Hui Walker RMakNMak - 06/03/2020 4:10 PM CST SUBJECTIVE CHIEF COMPLAINT / REASON FOR CALL Phone Contact PLAN The following information was provided: Call placed to patient and discussed that the patient did not need to take Trospium if he was not having bladder spasms. 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 Patient would like a phone call back regarding his hospital visit and medication questions. 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
--- OUTSIDE RECORDS SUMMARY | 2021-12-07 09:57 | XMS_ITS | Encounter Summary ---
:1945 Author Organization [facility] Address [address] [place] [address] Care Team Providers Name Role Phone Unavailable Primary Care Provider Unavailable Encounter Details Date Type Department Care Team Description 04/28/2020 Clinical Communication Department of Urology Lisa Jimenez in [place] [address] [place] [address] Social History Tobacco Use Types Packs/Day Years [...] or relatives? How often do you attend yazidi or mu-ism Never 05/11/2020 services? Do you belong to any clubs or organizations Yes 05/11/2020 such as yazidi groups, unions, fraternal or athletic groups, or [...] on file documented as of this encounter Plan of Treatment Not on filedocumented as of this encounter Visit Diagnoses Not on filedocumented in this encounter
--- OUTSIDE RECORDS SUMMARY | 2021-12-07 09:57 | XMS_ITS | Encounter Summary ---
:[address] [facility] Address [address] [place] [id number] Care Team Providers Name Role Phone Unavailable Primary Care Provider Unavailable Reason for Referral Outpatient (Routine) - Closed Specialty Diagnoses / Procedures Referred By Contact Refer red To Contact Urology Chet Jimenez M.D . [address] [phone] Referral ID Status Reason Start Date Expiration Date Visits Requ ested Visits Authorized [id number] Closed 05/15/2020 05/15/2021 1 1 utpatient (Routine) - Closed Specialty Diagnoses / Procedures Referred By Contact Refer red To Contact Diagnoses False Passage Urethra Prostatic Chet Jimenez M.D. [facility] Procedures URO Uroflow [address] [place] [phone] Referral ID Status Reason Start Date Expiration Date Visits Requ ested Visits Authorized [id number] Closed 05/15/2020 05/15/2021 1 1 ZINE REPAIRER Reason for Visit Outpatient (Routine) - Closed Specialty Diagnoses / Procedures Referred By Contact Refer red To Contact Urology Nga Reyes M. D. [address] [phone] Referral ID Status Reason Start Date Expiration Date Visits Requ ested Visits Authorized [id number] Closed 04/15/2020 04/15/2021 1 1 Encounter Details Date Type Department Care Team Description 05/15/2020 Office Visit Department of Urology Chet Jimenez Fa lse Passage Urethra in [place] Prostatic (Allison douglass Trev) [place] [address] [place] [phone] Social History Tobacco Use Types Packs/Day Years [...] or relatives? How often do you attend zoroastrian or congregational Never 05/11/2020 services? 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 Sex Assigned at Date Recorded Not on file documented as of this encounter Consult Notes Chet Jimenez M.D. 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 Samayoa is a pleasant 74 y.o. male with a past medical history of gross hematuria, CVA (2016, 2019 on Aspirin and Plavix), hypertension, who was transferred to [facility] after having a false passage of his urethra at time of Molina catheter placement. His hospitalization was complicated by requiring multiple blood transfusions and developing a right lower extremity DVT and left lower lobeasymptomatic PE. He presents for follow-up. Please refer to prior notes (04/11/[address] Charlton) for full details. In brief, Mr. Samayoa has a pertinent urologic history of a TURP in 1999 for BPH. He experienced a CVA in February 2020 for which hewas admitted locally. He underwent a CEA on 03/10. Overnight he developed urinary retention. A Molina catheter was inserted and resulted in gross hematuria requiring CBI. His hematuria persisted despiteCBI he underwent cystoscopy, bladder neck dilation and clot evacuation. His hospital course was further complicated by sepsis and pneumonia. He was discharged on 03/15/2020 on aspirin and Plavix for 1 month duration was scheduled for outpatient follow-up locally with Urology including Molina catheter removal and voiding trial. He continued to have gross hematuria and underwent repeat cystoscopy, urethral dilation and clot evacuation on 03/28/[address] Louis. The bladder did not show any tumors. There was a bladder neck contracture which was dilated to 30 Fr. There was also a defect in the posterior prostatic urethra consistent with a false passage. A 3 way Molina catheter was placed and he was subsequently discharged without issue. On 04/10/20 the patient was transferred to [facility] after being evaluated in a local ERfor gross hematuria. He had been transfused multiple units of packed red blood cells with persistently low hemoglobin. He was evaluated by our service in the ICU. The catheter was confirmed to be in the bladder and was hand irrigated followed by placement of the catheter on tension. Over the next few days his bleeding subsided, however he was diagnosed with a lower extremity DVT and asymptomatic PE for which he was evaluated by vascular Medicine. He discharged on 04/15 and now presents for follow-upfor further recommendations. He has had a Molina catheter indwelling for the past month. He was last seen by our vascular medicine colleagues on 04/28/2020. He was previously taking Eliquis2.5 mg b.i.d. they will reconsider further on whether not anti-platelet therapy should be re-initiated. In the interim, patient's Molina catheter has been completely clear. He has had no additional issues with bleeding. He has tolerated the Molina catheter without issue. ROS: The patient denies any of the following current symptoms: Fever, changes in vision, chest pain, shortness of breath, persistent cough, abdominal pain, nausea, vomiting, hematuria, rashes, bone pain, muscle weakness, hot flashes, headaches, changes in mentation, swollen lymph nodes/glands, or anxiety. PMHx Patient Active Problem List Diagnosis ??? Urethral False Passage ??? Anemia Posthemorrhagic Acute (Blood Loss Anemia) ??? Hematuria Gross ??? Change Mental Status ??? Hypotension ??? Herpes Genitalis ??? Hypokalemia ??? Hematuria - lower extremity DVT - left lower lobe asymptomatic pulmonary embolism - CVA in 2016 and 2019 MEDICATIONS Current Outpatient Medications: ??? apixaban (ELIQUIS) 2.5 mg tablet, Take 1 tablet (2.5 mg total) by mouth 2 (two) times a day., Disp: 30 tablet, Rfl: 0 ??? aspirin [address] tablet, Take 1 tablet (81 mg total) by mouth every other day., Disp: , Rfl: ??? bacitracin 500 unit/gram ointment, Apply 1 application topically 2 (two) times a day as needed (catheter tip irritation)., Disp: 15 g, Rfl: 0 ??? cholecalciferol, vitamin D3, 25 mcg (1,000 Unit) tablet, Take 1,000 Units by mouth daily. , Disp: , Rfl: ??? ferrous sulfate 325 mg (65 mg iron) DR tablet, Take 325 mg by mouth daily., Disp: , Rfl: ??? finasteride (PROSCAR) 5 mg tablet, Take 1 tablet (5 mg total) by mouth daily., Disp: 30 tablet, Rfl: 0 ??? metoprolol succinate (TOPROL-XL) 25 mg 24 hr tablet, Take 25 mg by mouth daily., Disp: , Rfl: ??? nitroglycerin (NITROSTAT) 0.4 mg SL tablet, Place 0.4 mg under the tongue every 5 (five) minutesas needed for chest pain (Max 3 doses). If no relief 5 minutes after the 1st dose, seek medical attention immediately. May take up to 2 additional doses if needed. , Disp: , Rfl: ??? pyridoxine, vitamin B6, (VITAMIN B6) 25 mg tablet, Take 25 mg by mouth daily., Disp: , Rfl: ??? rosuvastatin (CRESTOR) 20 mg tablet, Take 20 mg by mouth at bedtime as needed. Use as directed by primary care provider. , Disp: , Rfl: ??? sennosides-docusate sodium (SENOKOT-S) 8.6-50 mg per tablet, Take 1 tablet by mouth 2 (two) times a day., Disp: , Rfl: ??? trospium (SANCTURA) 20 mg tablet, Take 1 tablet (20 mg total) by mouth 2 (two) times a day as needed (bladder spasms)., Disp: 20 tablet, Rfl: 1 ??? valACYclovir (VALTREX) 1000 mg tablet, Take 1 g by mouth daily., Disp: , Rfl: ??? zinc chelated 50 mg tablet tablet, Take 50 mg by mouth daily., Disp: , Rfl: SURGICAL HISTORY - CEA - Cystoscopy with clot evacuation x 2 in 2019 and 2020 - TURP 1999 FAMILY HISTORY No family history of malignancy. SOCIAL HISTORY Social History Tobacco Use ??? Smoking status: Former Smoker Substance Use Topics ??? Alcohol Use Frequency: 2-3 times a week Drinks per session: 1 or 2 Binge frequency: Never ??? Drug use: Not on file OBJECTIVE There were no vitals filed for this visit. PHYSICAL EXAM Constitutional: Alert and oriented, no acute distress Eyes: No scleral icterus CV: Regular rate and rhythm Resp: Normal respiratory effort GI: Abdomen soft, non-tender : Molina catheter clear/clear Musculoskeletal: Normal gait noted with ambulation Neurological: Sensation intact in genitourinary region Lymph: No inguinal lymphadenopathy Skin: No rashes Psychiatric: Appropriate affect LABORATORY None IMAGING None ASSESSMENT / PLAN #1 Urethral false passage following Molina catheter placement #2 Hematuria following Molina catheter placement #3 Negative cystoscopy for bladder pathology at outside institution #4 Left lower lobe PE #5 Lower extremity DVT #6 CVA in 2016 and 2019 status post CEA #7 BPH s/p TURP 1999 It was my pleasure evaluating Mr. Samayoa in Urology Clinic following his prolonged hospitalization andrecurrent episodes of hematuria. We reviewed his clinical course. Thankfully, he has not had any additional episodes of hematuria over the past 4 weeks. His urine is clear today in clinic. At this time, we would recommend removal of his Molina catheter with a voiding trial. We discussed his prolonged and recurrent episodes of hematuria in the setting of anticoagulation. His hematuria clearly began after Molina catheter placement at an outside institution. He denied any history of hematuria prior to this. Furthermore, he had 2 cystoscopies which showed minimal clot burden in the bladder and no evidence of bladder tumors at that time. A bladder neck contracture as well as a prostatic urethra false passage was noted. Thus, the role of a CT urogram or repeat cystoscopy for hematuria evaluation completion is limited. We will plan for Molina catheter removal today with voiding trial. I did offer hematuria evaluation to Mr. Samayoa. If he elected to proceed I'd recommend waiting8 weeks since he has had a molina catheter in place. After a detailed discussion, we will not pursue a full hematuria evaluation at this time due to the above reasons. We will have Mr. Samayoa return in approximately 12 weeks with a uroflow and PVR followed by clinic visit. Plan: UCO [place] today F/u with Vascular medicine later today Return to clinic in 3 months with uroflow and PVR followed by clinic visit. If patient has any additional episodes of hematuria we will reconsider evaluation with CT urogram, and cytology Signed by: Chet Jimenez M.D. 05/14/2020 2:33 PM MAGAZINE REPAIRER ZINE REPAIRER documented in this encounter Miscellaneous Notes Addendum Note - Chet Jimenez M.D. - 05/15/2020 8:00 AM MAGAZINE REPAIRER Addended by: CHET JIMENEZ on: 05/15/2020 08:09 AM Modules accepted: Orders ZINE REPAIRER documented in this encounter Plan of Treatment Scheduled Referrals Name Type Priority Associated Diagnoses Order S [facility] Urology office Outpatient Referral Routine Expect ed: visit (clinic) 08/12/2020 (Approximate), Expires: 05/15/2023 documented as of this encounter Results URO Uroflow (08/12/2020 10:00 AM CDT) Narrative Callum Marcos M.D. - 08/12/2020 10: 00 AM CDT Callum Marcos M.D. ? 08/12/2020 10:41 AM REASON FOR VISIT: Uroflow: The patient here for a complex uroflow via calibrated electronic equipment and a residual urin e check by ultrasound. FINDINGS: Peak flow 11 ml/sec Average flow 7 ml/sec Voiding time ??35 sec Total voided volume 178 mls Residual urine 17 ml by ultrasound Detrusor flow pattern IMPRESSION: Low postvoid residual with low Qmax. ??D ifferential diagnosis includes normal variant uroflow versus b ladder outlet obstruction versus hypocontractile bladder. Clinical correlation is recommended. Chet Jimenez M.D. UROLOGY ORDERABLES documented in this encounter Visit Diagnoses Diagnosis False Passage Urethra Prostatic - Primar y False Passage Urethra Prostatic Feeling Of Incomplete Bladder Emptying Hyperplasia Prostate Benign Localized Wi th Obstruction documented in this encounter
--- OUTSIDE RECORDS SUMMARY | 2021-12-07 09:57 | XMS_ITS | Encounter Summary ---
:1945 Author Organization [facility] Address [address] [place] [address] Care Team Providers Name Role Phone Unavailable Primary Care Provider Unavailable Encounter Details Date Type Department Care Team Description 01/02/2013 Hospital Encounter HX [facility] Dayne Reynolds M.D. Social History Tobacco Use Types Packs/Day Years Used Date Smoking Tobacco: Never Assessed Alcohol Habits Answer Date Recorded How often [...] or relatives? How often do you attend uatsdin or scientology Never 05/11/2020 services? Do you belong to any clubs or organizations Yes 05/11/2020 such as uatsdin groups, unions, fraternal or athletic groups, or [...] Sig Dispensed Refills Start Date End Date atorvastatin (LIPITOR) 20 Take 1 tablet by 0 08/2704/13/2020 mg tablet mouth at bedtime. documented as of this encounter Plan of Treatment Not on filedocumented as of this encounter Visit Diagnoses Not on filedocumented in this encounter
--- OUTSIDE RECORDS SUMMARY | 2021-12-07 09:57 | XMS_ITS | Encounter Summary ---
:1945 Author Organization [facility] Address [address] [place] [id number] Care Team Providers Name Role Phone Unavailable Primary Care Provider Unavailable Reason for Referral Outpatient (Routine) - Closed Specialty Diagnoses / Procedures Referred By Contact Refer red To Contact Diagnoses Urethral False Passage Nga Reyes M.D. [facility] Procedures URO Urethral cath removal & voiding trial (UCO/VT) [address] [place] [phone] Referral ID Status Reason Start Date Expiration Date Visits Requ ested Visits Authorized [id number] Closed 04/15/2020 04/15/2021 1 1 RNATIONAL MARKETING EXECUTIVE Outpatient (Routine) - Closed Specialty Diagnoses / Procedures Referred By Contact Refer red To Contact Urology Nga Reyes M. D. [facility] [address] [place] [address] [phone] Referral ID Status Reason Start Date Expiration Date Visits Requ ested Visits Authorized [id number] Closed 04/15/2020 04/15/2021 1 1 Scheduling Instructions Visit before UCO/VT. RNATIONAL MARKETING EXECUTIVE Outpatient (Routine) - Closed Specialty Diagnoses / Procedures Referred By Contact Refer red To Contact Vascular Medicine Diagnoses Thrombosis Deep Vein Acute Lower Extremity Bilateral (HCC) Nga Reyes M.D. [facility] [address] [place] [phone] Referral ID Status Reason Start Date Expiration Date Visits Requ ested Visits Authorized [id number] Closed 04/14/2020 04/14/2021 1 1 RNATIONAL MARKETING EXECUTIVE Outpatient (Routine) - Closed Specialty Diagnoses / Procedures Referred By Contact Refer red To Contact Diagnoses Thrombosis Deep Vein Acute Lower Extremity Bilateral (HCC) Nga eRyes M.D. [facility] Procedures US Lower Extremity Veins Bilateral [address] [place] [phone] Referral ID Status Reason Start Date Expiration Date Visits Requ ested Visits Authorized [id number] Closed 04/14/2020 04/14/2021 1 1 RNATIONAL MARKETING EXECUTIVE Encounter Details Date Type Department Care Team Description 04/10/2020 - Hospital Encounter [facility] Brandon Singleton M.D. [address] [place] [phone] Urethral False Passage (Primary Dx); 04/15/[address] [facility] Da Matias M.D. [address] [place] [phone] Thrombosis Deep Vein Acute Lower Extremi ty Bilateral (HCC) [facility], Travis Brannon M.D. [address] [place] [phone] [facility], Sixth Floor [address] [place] [phone] Social History Tobacco Use Types Packs/Day [...] or relatives? How often do you attend yarsani or anabaptist Never 05/11/2020 services? Do you belong to any clubs or organizations Yes 05/11/2020 such as yarsani groups, unions, fraternal or athletic groups, or [...] Sign Reading Time Taken Comments Blood Pressure 110/74 04/15/2020 3:28 PM INTERNATIONAL MARKETING EXECUTIVE Pulse 77 04/15/2020 3:28 PM INTERNATIONAL MARKETING EXECUTIVE Temperature 36.7 ??C (98.1 ??F) 04/15/2020 3:28 PM INTERNATIONAL MARKETING EXECUTIVE Respiratory Rate 16 04/15/2020 3:28 PM INTERNATIONAL MARKETING EXECUTIVE Oxygen Saturation 95% 04/15/2020 3:28 PM INTERNATIONAL MARKETING EXECUTIVE Inhaled Oxygen Concentration - - Weight 80.2 kg (176 lb 12.9 oz) 04/15/2020 10:00 AM INTERNATIONAL MARKETING EXECUTIVE Height 170 cm (5' 6.93) 04/11/2020 12:20 AM INTERNATIONAL MARKETING EXECUTIVE Body Mass Index 27.75 04/11/2020 12:20 AM INTERNATIONAL MARKETING EXECUTIVE documented in this encounter Discharge Summaries Nga Reyes M.D. - 04/15/2020 10:23 AM CST DISCHARGE SUMMARY BRIEF OVERVIEW Hospital: [facility] Discharge Provider: Travis Brannon M.D. [facility] - Chief Estefania Christian No primary care provider on file. Primary Care Provider Phone Number: None Primary Care Provider Fax Number: None Other Providers: None Admission Date: 04/10/2020 Discharge Date: 04/15/2020 PRINCIPAL DIAGNOSIS Anemia Posthemorrhagic Acute (Blood Loss Anemia) SECONDARY DIAGNOSES Principal Problem: Anemia Posthemorrhagic Acute (Blood Loss Anemia) Active Problems: Urethral False Passage Hematuria Gross Change Mental Status Hypotension Herpes Genitalis Hypokalemia Hematuria Resolved Problems: * No resolved hospital problems. * DISCHARGE DISPOSITION Home or Self Care [1] ACTIVE ISSUES REQUIRING FOLLOW UP - Resume aspirin 81 mg every OTHER day - STOP Plavix. Continue taking Eliquis 2.5 mg twice daily - Wear compressions stockings - Flush Molina catheter as needed for suspected obstruction - Follow-up with Vascular Medicine with repeat imaging in 1 week - Follow-up with Urology in approximately 2 weeks - Continue Levaquin after discharged from hospital for 5 days - Will need to start 3-day course of antibiotic day prior to Urology Clinic appointment for possiblecatheter removal OUTPATIENT FOLLOW UP Scheduled Appointments 04/28/2020 8:30 AM US [facility] 04 RM 07 Radiology 04/28/2020 2:00 PM Draper, Radu E, M.D. Vascular Medicine For appointment details refer to your Patient Appointment Guide. TEST RESULTS PENDING AT DISCHARGE Pending Labs Order Current Status Bacterial Culture, Aerobic + Susc, Urine In process DETAILS OF HOSPITAL STAY REASON FOR ADMISSION Urethral False Passage Anemia Posthemorrhagic Acute (Blood Loss Anemia) Hematuria HOSPITAL COURSE Mr. Samayoa is a 74 y.o. male with a past medical history of of CVA s/p right CEA 03/10/2020 on ASA andplavix,, HTN, low back pain, and history of BPH s/p TURP who presents to the Anesthesia ICU as a transfer from [facility] with brisk hematuria requiring blood transfusions. ?? Mr. Samayoa initially sustained a urethral injury on March 10 2020 while hospitalized for CEA following a stroke. He developed post-operative urinary retention requiring molina catheterization. Unfortunately, this was complicated by traumatic molina catheterization with creation of a false lumen and gross hematuria. He required blood transfusions following this, and unfortunately became unresponsive and bradycardic resulting in a code and transfer to the ICU for hypoxic/hypercarbic respiratory failure requiring BiPAP and diuresis for volume overload and antibiotics for CAP. He was discharged 03/15 with a molina catheter in place. He was sent out on aspirin and plavix, with instruction to stop plavix on 04/06. ?? Unfortunately, he developed bleeding and presented to [facility] where cystoscopy was performed with ureteral dilation and clot evaluation on 03/28/19. ASA and Plavix were held at that time, though both were resumed at the time of discharge on 03/31. Per report, he has continued with plavix since then, despite the initial plan to discontinue plavix on 04/06. ?? Urology was consulted and placed a larger Molina with tension in addition to irrigation. After receiving a total of 6 units of blood hemoglobin remained stable at 8.3 and he was transferred to the Urology service. He became hypotensive on the floor and was transferred back to ICU due to concern for furt her hemorrhage. Repeat CT abdomen pelvis demonstrated no hemorrhage but new pulmonary embolism. Bilateral lower extremity ultrasound demonstrated deep vein thrombosis of unclear chronicity. Vascular Medicine was consulted and due to concerns for bleeding, anticoagulation was held at this time. Patientwas stabilized and transferred again to floor cares. Patient was weaned off continuous bladder irrigation (CBI) with clear urine. After repeat bilateral lower extremity ultrasound demonstrated new DVTs but no propagation of thrombus, Vascular Medicine recommeded starting patient on Eliquis 2.5 mg BID. Urine remained clear yellow and patient was discharged with Molina catheter in place with plans for follow-up with Vascular Medicine and Urology. CONSULTS ORDERED DURING THIS ADMISSION IP CONSULT TO UROLOGY IP CONSULT TO VASCULAR MEDICINE CONDITION AT DISCHARGE stable Discharge instructions were provided to the patient and caregiver(s). RNATIONAL MARKETING EXECUTIVE Rosa Castro R.N. - 04/11/2020 8:36 PM CST Pts VS @1630: BP 84/59, HR 68, O2 sats at 97% 2LNC, T 36.7. Sx is here on unit and orders give for 4U RBCs and 1L bolus. Pt will be transferred to [facility]; report called to Ty BAR and Pt was transferred with belongings. RNATIONAL MARKETING EXECUTIVE Damaso Heller R.N. - 04/11/2020 2:27 PM CST Patient meets [facility] dismissal criteria. MD order written to transfer patient to [facility], general care. Patient transferred via wheelchair with the TEST CLERK. Report shared with RN. Patient settled in room. RN present. All questions addressed. VSS/NAD. RNATIONAL MARKETING EXECUTIVE documented in this encounter Discharge Instructions Discharge InstructionsLisandra Loredo - 04/11/2020 11:35 AM CST [facility] were [facility] Surgery - Chief A - Blue Service. Please identify this service name if you call with questions after hospitalization. RNATIONAL MARKETING EXECUTIVE AttachmentsThe following attachments cannot be sent through Care Everywhere. Apixaban (By mouth) (Nepalese)Bacitracin (On the skin) (Nepalese)Finasteride (By mouth) (Nepalese)documented in this encounter Medications at Time of Discharge Medication Sig Dispensed Refills Start Date End Date cholecalciferol, vitamin Take 1,000 Units by 0 D3, 25 mcg (1,000 Unit) mouth daily. tablet ferrous sulfate 325 mg Take 325 mg by mouth 0 08/2020 (65 mg iron) DR tablet daily. metoprolol succinate Take 25 mg by [...] Use as directed by primary care provider. valACYclovir (VALTREX) Take 1 g by mouth as 0 1000 mg tablet needed. zinc chelated 50 mg Take 50 mg by mouth 0 020 tablet tablet daily. finasteride (PROSCAR) 5 Take 1 tablet (5 mg 30 tablet 0 mg tablet total) by mouth daily. sennosides-docusate Take 1 tablet by 0 04/15/2020 sodium (SENOKOT-S) mouth 2 (two) times a 8.6-50 mg per tablet day. levoFLOXacin (LEVAQUIN) Take 1 tablet (500 mg 5 tablet 0 0 04/15/2020 04/20/2020 500 mg tablet total) by mouth daily for 5 days. levoFLOXacin (LEVAQUIN) Take 1 tablet (500 mg [...] (bladder spasms). documented as of this encounter Progress Notes Nga Reyes M.D. - 04/15/2020 10:28 AM CST UROLOGY PROGRESS NOTE Subjective Hospital Day: LOS: 5 days Brief Summary Mr. Samayoa is a 74 y.o. male with PMH cerebral vascular accidents (in 2016 and more recently in February of 2020, on aspirin and Plavix), TURP in 1999, CAD, carotid artery stenosis with cerebral infarction, mild cognitive impairment, and HLD who was admitted directly to the 7 D/E ICU from an outside hospital for gross hematuria requiring CBI and blood transfusions. Patient has a history of traumatic molina placement 03/10/2020 resulting in false passage and recurrent hematuria s/p cystoscopy, bladder neck dilation and clot evacuation and a repeat cystoscopy, urethral dilation and clot evacuation on 03/28/2019 at an outside hospital. Interval Patient remains afebrile. Vital signs stable. Saturating well on room air. Tolerating 1.4 L of PO intake without nausea or vomiting. Pain well controlled. CBI is currently off with clear yellow urine, appropriate output at 2.0 L. Patient continues on scheduled hand irrigation. Patient is up to chair and ambulating throughout the day. Hemoglobin 9.5 from 9.3 WBC 5.6 from 6.1 Creatinine 0.9 from 0.95 Objective Temperature: [36.6 ??C-36.9 ??C] 36.8 ??C Resp Rate: [16-20] 18 Blood Pressure: (111-135)/(70-82) 116/70 SpO2: [93 %-96 %] 93 % Weight: [80.2 kg] 80.2 kg BMI (Calculated): [27.8 kg/m??] 27.8 kg/m?? Pulse Rate: [54-75] 54 Respiratory Pattern: Regular (04/13/20 0849 : Basilia Lofton R.N.) Respiratory Effort: Unlabored (04/13/20 0849 : Basilia Lofton R.N.) I/O Date 04/14/20 0700 - 04/15/20 0659 04/15/20 0700 - 04/16/20 0659 Shift 7132-2525 6014-7974 6447-3829 24 Hour Total 3832-9341 9972-3575 2279-6916 24 Hour Total INTAKE P.O. 400 772 713 3773 480 480 Intermittent Medications 50 50 Shift Total(mL/kg) 400(5) 1040(12.9) 350(4.3) 1790(22.2) 480(6) 480(6) OUTPUT Urine(mL/kg/hr) 550(0.9) 360(0.6) 1170(1.8) 2080(1.1) 250 250 Output (mL)- Urine (Bladder Irrigation Three-way 22 Fr) 346 510 2633 2080 250 250 Shift Total(mL/kg) 550(6.8) 360(4.5) 1170(14.5) 2080(25.7) 250(3.1) 250(3.1) NET -150 680 -820 -290 230 230 Weight (kg) 80.8 80.8 80.8 80.8 80.2 80.2 80.2 80.2 Physical Exam Constitutional: Man lying in bed, awake and alert. No acute distress Cardiovascular: Regular rate Pulmonary: Nonlabored breathing on room air Abdominal: Soft, nondistended, nontender to palpation Genitourinary: Uncircumcised penis with dried blood at urethral meatus Drain: 3-way Molina catheter in place draining clear yellow urine Labs Recent Results (from the past 24 hour(s)) CBC without Differential Collection Time: 04/15/20 3:08 AM Result Value Hemoglobin 9.5 (L) Hematocrit 30.2 (L) Erythrocytes 3.17 (L) MCV 95.3 RBC Distrib Width 16.2 (H) Platelet Count [address] Abdomen Pelvis With Iv Contrast Result Date: 04/11/2020 Impression: 1. No evidence of recent or active hemorrhage within the abdomen or pelvis. 2. Bladder wall thickening and adjacent stranding and mild ureterectasis and periureteral stranding of the lower ureters is nonspecific but can be seen in the setting of cystitis with early ascending infection. 3. Acute pulmonary embolism in the left lower lobe. Assessment & Plan: Hospital Problems as of 04/15/2020 1. * (Principal) Anemia Posthemorrhagic Acute (Blood Loss Anemia) 2. Urethral False Passage 3. Hematuria Gross 4. Change Mental Status 5. Hypotension 6. Herpes Genitalis 7. Hypokalemia 8. Hematuria Mr. Samayoa is a 74 y.o. male with PMH cerebral vascular accidents (in 2017 and more recently in February of 2020, on aspirin and Plavix), TURP in 1999, CAD, carotid artery stenosis with cerebral infarction, mild cognitive impairment, and HLD who was admitted directly to the 7 D/E ICU from an outside hospital for gross hematuria requiring CBI and blood transfusions. Patient has a history of traumatic molina placement 03/10/2020 resulting in false passage and recurrent hematuria s/p cystoscopy, bladder neck dilation and clot evacuation and a repeat cystoscopy, urethral dilation and clot evacuation on 03/28/2019 at an outside hospital. Patient's hematuria continues to improve with hemoglobin remaining stable. Vascular medicine was consulted due to evidence of asymptomatic, acute PE of the left lower lobe identified on CT abdomen pelvis and an age-indeterminate DVT in the right soleal and peroneal veins. Underwent repeat lower extremity ultrasound on 04/14/2020 which demonstrated new DVT but no propagation of known blood clot. Was initiated on Eliquis half dose per Vascular Medicine recommendations with no recurrence of hematuria. Patient is medically ready for discharge. Plan - Follow-up with Vascular Medicine in 1 week - Follow-up with Urology in 2 weeks, will schedule for Molina catheter removal after clinic visit Diet: General Activity: as tolerated Pain Control: Oxycodone and Tylenol Anticoagulation: Currently held Abx/Microbiology: Levofloxacin Bowel Regimen: Dulcolax Supp, Miralax and Senokot Consults: Vascular medicine Lines/Drains/Tubes: Maintain indwelling catheter Anticipated Disposition: Home today Barriers to Discharge: None Thank you for your participation in this patient's care. Please page chief Urology Service [place] [phone] [place] [phone] after hours. Signed by: Nga Reyes M.D. RNATIONAL MARKETING EXECUTIVE Radu Draper M.D. - 04/14/2020 10:06 AM CST SUBJECTIVE He is doing well. He denies any new symptoms from the leg. No new cardiopulmonary symptoms. He is not sure when he will be going home yet. OBJECTIVE VITALS BP 119/63 (Patient Position: Lying) Pulse (!) 57 Temp 36.7 ??C (Oral) Resp 17 Ht 170 cm Wt80.8 kg SpO2 95% BMI 27.96 kg/m?? PHYSICAL EXAMINATION Only a focused exam took place. Interestingly, there is absolutely no edema in the lower limbs despite increasing thrombotic burden. He has equal and symmetric pedal pulses in both the dorsalis pedis and posterior tibial artery locations. His cardiopulmonary exam is unchanged. Molina catheter is draining a clear yellow urine. DIAGNOSTIC REVIEW We reviewed his repeat bilateral lower limb standard venous duplex today. There certainly is more thrombus burden in the bilateral calves but still no evidence of proximal deep vein thrombosis. ASSESSMENT / PLAN #1 Urethral False Passage #2 Anemia Posthemorrhagic Acute (Blood Loss Anemia) #3 Hematuria Gross #4 Change Mental Status #5 Hypotension #6 Herpes Genitalis #7 Hypokalemia #8 Hematuria Asymptomatic venous thromboembolic disease including increasing calf thrombus burden on the left and new calf DVT on the right along with asymptomatic left lower lobe acute pulmonary embolism in a 74-year-old male with ongoing issues of major bladder hemorrhage that, in the past, required several units of packed red blood cells. Thankfully, his urogenital status has stabilized. Unfortunately, however, he has developed further thrombus burden but still in the ???distal?? system with no proven propagation to the proximal system. Additionally, at least clinically, he remains asymptomatic. This is all in the setting of recent ischemic cerebrovascular event which required urgent right carotid endarter ectomy approximately 1 month ago. RECOMMENDATIONS: 1. Half-dose anticoagulation for now. We talked about the options. We mutually decided on apixaban2.5 mg p.o. q.12 hours. With that, monitor for new urologic hemorrhage. Please start now. 2. Repeat bilateral lower limb standard venous duplex in 7 days at [facility]. He should then have a follow-up visit in the [facility] immediately following the ultrasound. Based on the repeat ultrasound, decisions can be made about future intensity of anticoagulation. If the ultrasound is markedly improved and or reverts back to normal, perhaps continuing with half dose direct oral anticoagulant would be an option. However, if ultrasound is unchanged or any worse, would recommend increasing intensity to full, therapeutic dose. Of course, his genitourinary status will be vital important in this decision as well. Finally, the duration of anticoagulation can be determined at that point aswell. Typically, this would be anywhere from 3-6 months depending on a number of factors. 3. I have reviewed his outside vascular surgeon's note who performed the right carotid endarterectomy. They were comfortable with discontinuance of Plavix at the 1 month jong which is now. They did suggest that he continue on low-dose aspirin thereafter. Perhaps, we could have him take low-dose aspirin every other day given the concern for potential hemorrhage. 4. Hopefully, we can continue to avoid inferior vena caval interruption with IVC filter. 5. On discharge, please fit with a 30-40 mm bilateral knee-high graduated compression garment I advised him to contact either myself or his primary care provider should he notice recurrence of genitourinary hemorrhage while on the half dose of Eliquis. I advised him to stop the Eliquis immediately if this is seen. We talked about enrolling in the [facility] E portal as the most convenient andeasy way to reach us. I will leave him on my list and follow through the medical record. Please do not hesitate to contactme if issues arise. Radu Draper MD [facility] RNATIONAL MARKETING EXECUTIVE Nga Reyes M.D. - 04/14/2020 7:18 AM CST UROLOGY PROGRESS NOTE Subjective Hospital Day: LOS: 4 days Brief Summary Mr. Samayoa is a 74 y.o. male with PMH cerebral vascular accidents (in 2017 and more recently in February of 2020, on aspirin and Plavix), TURP in 1999, CAD, carotid artery stenosis with cerebral infarction, mild cognitive impairment, and HLD who was admitted directly to the 7 D/E ICU from an outside hospital for gross hematuria requiring CBI and blood transfusions. Patient has a history of traumatic molina placement 03/10/2020 resulting in false passage and recurrent hematuria s/p cystoscopy, bladder neck dilation and clot evacuation and a repeat cystoscopy, urethral dilation and clot evacuation on 03/28/2019 at an outside hospital. Interval Patient remains afebrile. Vital signs stable. Saturating well on room air. Tolerating 2.0 L of PO intake without nausea or vomiting. Pain well controlled. CBI is currently off with clear yellow urine, appropriate output at 2.5 L. Patient continues on scheduled hand irrigation. Patient is up to chair and ambulating throughout the day. Hemoglobin 9.3 from 9.3 WBC 6.1 from 7.0 Creatinine 0.9 from 0.95 Objective Temperature: [36.7 ??C-37 ??C] 36.8 ??C Heart Rate: [66] 66 Resp Rate: [12-16] 14 Blood Pressure: (89-121)/(54-81) 116/60 SpO2: [93 %-96 %] 93 % Weight: [80.8 kg] 80.8 kg BMI (Calculated): [28 kg/m??] 28 kg/m?? Pulse Rate: [56-78] 62 Respiratory Pattern: Regular (04/13/20 0849 : Basilia Lofton, R.N.) Respiratory Effort: Unlabored (04/13/20 0849 : Basilia Lofton, R.N.) I/O Date 04/13/20699 - 04/14/20 0604/14/20699 - 04/15/20 0659 Shift 1155-0352 8940-5257 6567-3980 24 Hour Total 5796-3096 6520-2032 8122-6361 24 Hour Total INTAKE P.O. 120 9287 796 6605 Other 250 250 Intermittent Medications 50 50 Shift Total(mL/kg) 120(1.5) 1635(20.2) 680(8.4) 2435(30.1) OUTPUT Urine(mL/kg/hr) 855(1.3) 480(0.7) 1375(2.1) 2710(1.4) Output (mL)- Urine (Bladder Irrigation Three-way 22 Fr) 259 209 4472 2710 Other 250 250 Shift Total(mL/kg) 855(10.6) 730(9) 1375(17) 2960(36.6) NET -735 902 -640 -485 Weight (kg) 80.8 80.8 80.8 80.8 80.8 80.8 80.8 80.8 Physical Exam Constitutional: Man lying in bed, awake and alert. No acute distress Cardiovascular: Regular rate Pulmonary: Nonlabored breathing on room air Abdominal: Soft, nondistended, nontender to palpation Genitourinary: Uncircumcised penis with dried blood at urethral meatus Drain: 3-way Molina catheter in place draining clear yellow urine Labs Recent Results (from the past 24 hour(s)) CBC without Differential Collection Time: 04/14/20 3:04 AM Result Value Hemoglobin 9.3 (L) Hematocrit 28.9 (L) Erythrocytes 3.06 (L) MCV 94.4 RBC Distrib Width 16.9 (H) Platelet Count 151 Leukocytes 6.1 Basic Metabolic Panel Collection Time: 04/14/20 3:04 AM Result Value Potassium, S 3.8 Sodium, S 143 Chloride, S 107 Bicarbonate, S 27 Anion Gap 9 Bld Urea Nitrog(BUN), S 7 (L) Creatinine, S 0.90 eGFR-Non Black 83 eGFR-Black >90 Calcium, Total, S 8.0 (L) Glucose, S [address] Abdomen Pelvis With Iv Contrast Result Date: 04/11/2020 Impression: 1. No evidence of recent or active hemorrhage within the abdomen or pelvis. 2. Bladder wall thickening and adjacent stranding and mild ureterectasis and periureteral stranding of the lower ureters is nonspecific but can be seen in the setting of cystitis with early ascending infection. 3. Acute pulmonary embolism in the left lower lobe. Assessment & Plan: Hospital Problems as of 04/14/2020 1. * (Principal) Anemia Posthemorrhagic Acute (Blood Loss Anemia) 2. Urethral False Passage 3. Hematuria Gross 4. Change Mental Status 5. Hypotension 6. Herpes Genitalis 7. Hypokalemia 8. Hematuria Mr. Samayoa is a 74 y.o. male with PMH cerebral vascular accidents (in 2017 and more recently in February of 2020, on aspirin and Plavix), TURP in 1999, CAD, carotid artery stenosis with cerebral infarction, mild cognitive impairment, and HLD who was admitted directly to the 7 D/E ICU from an outside hospital for gross hematuria requiring CBI and blood transfusions. Patient has a history of traumatic molina placement 03/10/2020 resulting in false passage and recurrent hematuria s/p cystoscopy, bladder neck dilation and clot evacuation and a repeat cystoscopy, urethral dilation and clot evacuation on 03/28/2019 at an outside hospital. Patient's hematuria continues to improve with hemoglobin remaining stable. Vascular medicine was consulted due to evidence of asymptomatic, acute PE of the left lower lobe identified on CT abdomen pelvis and an age-indeterminate DVT in the right soleal and peroneal veins. Underwent repeat lower extremity ultrasound on 04/14/2020 which demonstrated new DVT but no propagation of known blood clot. Plan - Consult Vascular Medicine for further recommendations. Urine is clear yellow so from hematuria perspective, can initiate reduced dose of anticoagulation Diet: General Activity: as tolerated Pain Control: Oxycodone and Tylenol Anticoagulation: Currently held Abx/Microbiology: Levofloxacin Bowel Regimen: Dulcolax Supp, Miralax and Senokot Consults: Vascular medicine Lines/Drains/Tubes: Maintain indwelling catheter on tension with scheduled hand irrigations. Anticipated Disposition: Home Barriers to Discharge: Hematuria management and anticoagulation management Thank you for your participation in this patient's care. Please page chief Urology Service [place] [phone] [place] [phone] after hours. Signed by: Nga Reyes M.D. RNATIONAL MARKETING EXECUTIVE Deann Joiner M.D. - 04/13/2020 1:34 PM CST UROLOGY PROGRESS NOTE Subjective Hospital Day: LOS: 3 days Brief Summary Mr. Samayoa is a 74 y.o. male with PMH cerebral vascular accidents (in 2017 and more recently in February of 2020, on aspirin and Plavix), TURP in 1999, CAD, carotid artery stenosis with cerebral infarction, mild cognitive impairment, and HLD who was admitted directly to the 7 D/E ICU from an outside hospital for gross hematuria requiring CBI and blood transfusions. Patient has a history of traumatic molina placement 03/10/2020 resulting in false passage and recurrent hematuria s/p cystoscopy, bladder neck dilation and clot evacuation and a repeat cystoscopy, urethral dilation and clot evacuation on 03/28/2019 at an outside hospital. Interval Patient transferred to floor cares yesterday afternoon. Patient remains afebrile. Vital signs stable. Saturating well on room air. Tolerating 1.1 L of PO intake without nausea or vomiting. Pain well controlled. CBI is currently off with clear yellow urine, appropriate output at 3 L. Patient continues on scheduled hand irrigation. Patient is up to chair andambulating throughout the day. Hemoglobin 9.3 from 9.8 WBC 7.0 from 9.9 Creatinine 1.95 from 0.93 Objective Temperature: [36.4 ??C-37.5 ??C] 36.9 ??C Heart Rate: [66-81] 66 Resp Rate: [12-16] 16 Blood Pressure: (102-137)/(56-77) 104/66 SpO2: [87 %-99 %] 95 % Weight: [80.8 kg] 80.8 kg BMI (Calculated): [28 kg/m??] 28 kg/m?? Pulse Rate: [56-87] 78 Respiratory Pattern: Regular (04/13/20 0849 : Basilia Lofton, R.N.) Respiratory Effort: Unlabored (04/13/20 0849 : Basilia Lofton, R.N.) I/O Date 04/12/20699 - 04/13/20 0659 04/13/20 07 - 04/14/20 0659 Shift 6499-8625 2316-2868 8758-6003 24 Hour Total 3853-0982 3285-6219 7431-0957 24 Hour Total INTAKE P.O. 640 037 395 9693 Other 250 60 310 Crystalloid Bolus 500 500 Maintenance IV 100 100 Intermittent Medications 100 100 Shift Total(mL/kg) 1490(18) 700(8.4) 400(4.8) 2590(31.2) OUTPUT Urine(mL/kg/hr) 1176(1.8) 1051(1.6) 1000(1.5) 3227(1.6) 855 855 Output (mL)- Urine (Bladder Irrigation Three-way 22 Fr) 1176 1051 1000 3227 855 855 Other 250 30 280 Shift Total(mL/kg) 1426(17.2) 1081(13) 1000(12) 3507(42.3) 855(10.6) 855(10.6) [facility] 64 -381 -600 -917 -855 -855 Weight (kg) 83 83 83 83 80.8 80.8 80.8 80.8 Physical Exam Constitutional: No distress. Cardiovascular: Normal rate. Soft BPs Pulmonary/Chest: Effort normal. Abdominal: mildly tender in bilateral lower quadrants Neurological: He is alert. Skin: Skin is warm and dry. Psychiatric: His behavior is normal. Genitourinary: 3-way Molina catheter in place, clear yellow urine Labs Recent Results (from the past 24 hour(s)) Calcium, Ionized Collection Time: 04/13/20 3:32 AM Result Value Calcium, Ionized, S 4.69 pH for Ionized Calcium 7.48 CBC without Differential Collection Time: 04/13/20 3:32 AM Result Value Hemoglobin 9.3 (L) Hematocrit 29.2 (L) Erythrocytes 3.13 (L) MCV 93.3 RBC Distrib Width 17.2 (H) Platelet Count 141 Leukocytes 7.0 Basic Metabolic Panel Collection Time: 04/13/20 3:32 AM Result Value Potassium, S 4.2 Sodium, S 144 Chloride, S 109 (H) Bicarbonate, S 28 Anion Gap 7 Bld Urea Nitrog(BUN), S 7 (L) Creatinine, S 0.95 eGFR-Non Black 77 eGFR-Black 90 Calcium, Total, S 8.2 (L) Glucose, S [address] Abdomen Pelvis With Iv Contrast Result Date: 04/11/2020 Impression: 1. No evidence of recent or active hemorrhage within the abdomen or pelvis. 2. Bladder wall thickening and adjacent stranding and mild ureterectasis and periureteral stranding of the lower ureters is nonspecific but can be seen in the setting of cystitis with early ascending infection. 3. Acute pulmonary embolism in the left lower lobe. Assessment & Plan: Hospital Problems as of 04/13/2020 1. * (Principal) Anemia Posthemorrhagic Acute (Blood Loss Anemia) 2. Urethral False Passage 3. Hematuria Gross 4. Change Mental Status 5. Hypotension 6. Herpes Genitalis 7. Hypokalemia 8. Hematuria Mr. Samayoa is a 74 y.o. male with PMH cerebral vascular accidents (in 2017 and more recently in February of 2020, on aspirin and Plavix), TURP in 1999, CAD, carotid artery stenosis with cerebral infarction, mild cognitive impairment, and HLD who was admitted directly to the 7 D/E ICU from an outside hospital for gross hematuria requiring CBI and blood transfusions. Patient has a history of traumatic molina placement 03/10/2020 resulting in false passage and recurrent hematuria s/p cystoscopy, bladder neck dilation and clot evacuation and a repeat cystoscopy, urethral dilation and clot evacuation on 03/28/2019 at an outside hospital. Patient's hematuria continues to improve with hemoglobin remaining stable. Vascular medicine was consulted due to evidence of asymptomatic, acute PE of the left lower lobe identified on CT abdomen pelvis and an age-indeterminate DVT in the right soleal and peroneal veins. Plan for repeat lower extremity ultrasound on 04/14/2020 and consideration of initiation of prophylactic low molecular weight heparin pending continued stability of patient's hemoglobin and hematuria. Plan - repeat lower extremity ultrasound on 04/14/2020 - consider initiation of prophylactic low molecular weight heparin tomorrow pending continued stability of patient's hemoglobin and hematuria. Diet: General Activity: as tolerated Pain Control: Oxycodone and Tylenol Anticoagulation: Currently held, consider initiation of low-molecular weight heparin tomorrow pending stability of hemoglobin and hematuria Abx/Microbiology: Levofloxacin Bowel Regimen: Dulcolax Supp, Miralax and Senokot Consults: Vascular medicine Lines/Drains/Tubes: Maintain indwelling catheter on tension with scheduled hand irrigations. Anticipated Disposition: Home Barriers to Discharge: Hematuria management and anticoagulation management Follow-up: Vascular medicine recs - remain on anticoagulation until 3 month follow-up with vascular medicine and repeat lower limb venous duplex Thank you for your participation in this patient's care. Please page chief Urology Service [place] [phone] [place] [phone] after hours. Signed by: Deann Joiner M.D. 04/13/2020 1:51 PM INTERNATIONAL MARKETING EXECUTIVE RNATIONAL MARKETING EXECUTIVE Deann Joiner M.D. - 04/12/2020 8:34 AM CST UROLOGY PROGRESS NOTE Subjective Hospital Day: LOS: 2 days Brief Summary Mr. Samayoa is a 74 y.o. male with PMH cerebral vascular accidents (in 2016 and more recently in February of 2020, on aspirin and Plavix), TURP in 1999, CAD, carotid artery stenosis with cerebral infarction, mild cognitive impairment, and HLD who was admitted directly to the 7 D/E ICU from an outside hospital for gross hematuria requiring CBI and blood transfusions. Patient has a history of traumatic molina placement 03/10/2020 resulting in false passage and recurrent hematuria s/p cystoscopy, bladder neck dilation and clot evacuation and a repeat cystoscopy, urethral dilation and clot evacuation on 03/28/2019 at an outside hospital. Interval CT abdomen pelvis demonstrates acute pulmonary embolism in the left lower lobe. No evidence of recent or active hemorrhage, but there is evidence of bladder wall thickening and adjacent stranding and mild ureterectasis and periureteral stranding of the lower ureters is nonspecific but can be seen in the setting of cystitis with early ascending infection. Patient remains afebrile. Blood pressures remain low with systolics in the 90s, heart rate 60s. Saturating well on 1 L nasal cannula. Pain well controlled. CBI is currently off with peach colored urinesmall intermittent clots. Patient continues on q.4 hours hand irrigation. Hemoglobin 9.8 WBC 9.9 Creatinine 0.93 Objective Temperature: [36.7 ??C-37 ??C] 36.9 ??C Heart Rate: [61-88] 65 Resp Rate: [11-25] 11 Blood Pressure: (74-152)/(33-115) 91/52 SpO2: [86 %-100 %] 98 % Flow Rate (L/min): [1 L/min-2 L/min] 1 L/min Pulse Rate: [60-88] 65 Respiratory Pattern: Regular (04/11/201649 : Damaso Heller, R.N.) Respiratory Effort: Unlabored (04/11/201649 : Damaso Heller R.N.) I/O Date 04/11/20699 - 04/12/2059 04/12/20699 - 04/13/20 0659 Shift 8031-3049 1838-8911 9400-7239 24 Hour Total 7995-3665 6644-9721 5404-9802 24 Hour Total INTAKE P.O. 280 280 400 400 Other 500 690 724 9892 250 250 Red Blood Cells 660 660 Crystalloid Bolus 500 500 Maintenance IV 70 160 230 80 80 Intermittent Medications 50 50 Shift Total(mL/kg) 1280(15.4) 1280(15.4) 660(8) 3220(38.8) 730(8.8) 730(8.8) OUTPUT Urine(mL/kg/hr) -917(-1.4) 285(0.4) 3569(5.4) 2937(1.5) 319 319 CBI Net Output (mL) Calculated (Bladder Irrigation Three-way 22 Fr) -1092 -3000 -4092 Output (mL)- Urine (Bladder Irrigation Three-way 22 Fr) 175 3285 3569 7029 319 319 Other 500 068 688 2238 250 250 Shift Total(mL/kg) -417(-5) 785(9.5) 4069(49) 4437(53.5) 569(6.9) 569(6.9) NET 1697 495 -3409 -1217 161 161 Weight (kg) 83 83 83 83 83 83 83 83 Physical Exam Constitutional: No distress. Cardiovascular: Normal rate. Soft BPs Pulmonary/Chest: Effort normal. Saturating well on 1 L nasal cannula Abdominal: mildly tender in bilateral lower quadrants Neurological: He is alert. Skin: Skin is warm and dry. Psychiatric: His behavior is normal. Genitourinary: 3-way Molina catheter in place, light peach urine with occasional small clots, compressive gauze applying external compression to penile meatus Labs Recent Results (from the past 24 hour(s)) Hemoglobin Collection Time: 04/11/20 8:46 AM Result Value Hemoglobin 8.3 (L) Hemoglobin Collection Time: 04/11/20 2:46 PM Result Value Hemoglobin 4.7 (Crit L) Thromboelastograph, Kaolin + Heparinase Collection Time: 04/11/20 5:02 PM Result Value R-Heparinase, TEG 3.8 K-Heparinase, TEG 1.9 Angle-Heparinase, TEG 64.2 MA-Heparinase, TEG 58.7 [id number], TEG 4.6 [id number], TEG 10.9 Hemoglobin Collection Time: 04/11/20 5:03 PM Result Value Hemoglobin 8.7 (L) Prothrombin Time (PT) Collection Time: 04/11/20 5:03 PM Result Value Prothrombin Time, P 13.8 (H) INR 1.3 Venous Blood Gas and Electrolytes CG8+, POCT Collection Time: 04/11/20 5:36 PM Result Value Sample Site, POCT Venline pH, Venous, POCT, B 7.39 pCO2, Venous, POCT, B 46 pO2, Venous, POCT, B 23 Base Excess, Venous, POCT, B 3 HCO3, Venous, POCT, B 28 Sodium, POCT, B 139 Potassium, POCT, B 4.7 Calcium, Ionized, POCT, B 4.80 Glucose, POCT, B 103 Hematocrit, POCT, B 28.0 (L) Blood Gas and Lytes, POCT Collection Time: 04/11/20 5:37 PM Result Value ABG and Lytes, POCT, B Collected CBC without Differential Collection Time: 04/11/20 5:57 PM Result Value Hemoglobin 10.3 (L) Hematocrit 31.4 (L) Erythrocytes 3.42 (L) MCV 91.8 RBC Distrib Width 17.7 (H) Platelet Count 119 (L) Leukocytes 11.8 (H) Basic Metabolic Panel Collection Time: 04/11/20 5:57 PM Result Value Potassium, P 4.4 Sodium, P 139 Chloride, P 107 Bicarbonate, P 26 Anion Gap, P 6 (L) BUN, P 8 Creatinine, P 0.82 eGFR Black >90 eGFR Non-Black 86 Calcium, Total, P 8.1 (L) Glucose, P 97 Lactate Collection Time: 04/11/20 5:57 PM Result Value Lactate, P 2.0 Prothrombin Time (PT) Collection Time: 04/11/20 5:57 PM Result Value Prothrombin Time, P 12.7 (H) INR 1.2 APTT (Activated Partial Thromboplastin Time) Collection Time: 04/11/20 5:57 PM Result Value Activated Partial Thrombopl Time, P 29 Fibrinogen Collection Time: 04/11/20 5:57 PM Result Value Fibrinogen, P 160 (L) Basic Metabolic Panel Collection Time: 04/12/20 4:04 AM Result Value Potassium, S 4.2 Sodium, S 138 Chloride, S 105 Bicarbonate, S 27 Anion Gap 6 (L) Bld Urea Nitrog(BUN), S 6 (L) Creatinine, S 0.93 eGFR-Non Black 79 eGFR-Black >90 Calcium, Total, S 7.9 (L) Glucose, S 86 Calcium, Ionized Collection Time: 04/12/20 4:05 AM Result Value Calcium, Ionized, S 4.69 pH for Ionized Calcium 7.46 CBC without Differential Collection Time: 04/12/20 4:05 AM Result Value Hemoglobin 9.8 (L) Hematocrit 30.2 (L) Erythrocytes 3.31 (L) MCV 91.2 RBC Distrib Width 18.1 (H) Platelet Count 124 (L) Leukocytes 9.9 (H) Imaging Ct Abdomen Pelvis With Iv Contrast Result Date: 04/11/2020 Impression: 1. No evidence of recent or active hemorrhage within the abdomen or pelvis. 2. Bladder wall thickening and adjacent stranding and mild ureterectasis and periureteral stranding of the lower ureters is nonspecific but can be seen in the setting of cystitis with early ascending infection. 3. Acute pulmonary embolism in the left lower lobe. Assessment & Plan: Hospital Problems as of 04/12/2020 1. * (Principal) Anemia Posthemorrhagic Acute (Blood Loss Anemia) 2. Urethral False Passage 3. Hematuria Gross 4. Change Mental Status 5. Hypotension 6. Herpes Genitalis 7. Hypokalemia Mr. Samayoa is a 74 y.o. male with PMH cerebral vascular accidents (in 2017 and more recently in February of 2020, on aspirin and Plavix), TURP in 1999, CAD, carotid artery stenosis with cerebral infarction, mild cognitive impairment, and HLD who was admitted directly to the 7 D/E ICU from an outside hospital for gross hematuria requiring CBI and blood transfusions. Patient has a history of traumatic molina placement 03/10/2020 resulting in false passage and recurrent hematuria s/p cystoscopy, bladder neck dilation and clot evacuation and a repeat cystoscopy, urethral dilation and clot evacuation on 03/28/2019 at an outside hospital. Patient's hematuria is slightly improved this AM, though CT from 04/11/2020 demonstrates residual clot burden in the urinary bladder. Hemoglobin stable at 9.8. Unfortunately, patient was found to have a acute PE of the left lower lobe and an age-indeterminate DVT in the right soleal and peroneal veins. Agree with critical Care team's plan for vascular medicine involvement provide further recommendations and consideration for IVC filter. Recommendations: - Maintain catheter on tension - CBI per catheter tech protocol with scheduled hand irrigations Q2Hrs with 250 mL - Bladder spasm management with Trospium 20 mg BID and PRN B&O suppositories - BID CBC - No repeat imaging necessary from a urologic standpoint today, though consider bladder ultrasound in the next 1-2 days to further evaluate residual clot burden All other cares per critical care team. Appreciate vascular medicine recommendations. Thank you for your participation in this patient's care. Please page chief Urology Service [place] [phone] [place] [phone] after hours. Signed by: Deann Joiner M.D. 04/12/2020 8:35 AM INTERNATIONAL MARKETING EXECUTIVE RNATIONAL MARKETING EXECUTIVE Callum Singleton M.D. - 04/12/2020 7:54 AM CST SUBJECTIVE Yesterday the patient returned to the ICU with concern for bleeding following a hemoglobin was the 4grams/deciliter range. A recheck did not confirm this and it was diluted from being taken on the same arm as a maintenance infusion. A CT abdomen and pelvis was obtained which demonstrated cystitis andno bleeding. No cardiopulmonary events overnight. He is on 1L nasal cannula. Urine output is excellent. Hemoglobin this morning is 9.8 grams/deciliter I have seen and evaluated the patient and reviewed the pertinent imaging and laboratory data. I havediscussed patient care the Critical Care staff as well as nursing. Please see the resident note of today's date for additional details. OBJECTIVE VITAL SIGNS I have reviewed the current vital sign data as applicable. PHYSICAL EXAM General: Resting comfortably in bed. HEENT: Unremarkable Chest: Bilateral breath sounds Cardiac: Sinus rhythm Abdomen: Soft. Nondistended. Extremities: Warm and perfused. DIAGNOSTICS I have reviewed relevant laboratory, imaging, and other diagnostics as applicable. 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 CT confirms this. Of note, there is segmental and subsegmental identified on CT scan which is a problem as any additional anticoagulation is problematic as he has dad more than onelife-threatening bleed. We will explore a IVC filter. Vascular medicine may be helpful in sorting this out. RNATIONAL MARKETING EXECUTIVE Azalia Pepe M.D. - 04/12/2020 6:53 AM CST ICU PROGRESS NOTE: INTERVAL EVENTS: -No PRN pain medications needed overnight -Hypotensive with RR, no pressors or boluses required overnight -LLL PE (asymptomatic with no more than 1L NC required overnight) -Continuing finasteride and trospium -No active bleeding on CT Abd Pelvis -Hgb increased to 9.8 and no additional blood products were required -Continued to hold anticoagulation -Continued on Levoquin SUBJECTIVE Briefly, this is a 74-year-old gentleman who was transferred out of our unit earlier in the day 04/11in stable condition however was then found to have a hemoglobin of 4.7 and was transferred back to the surgical ICU out of concern for ongoing bleeding. Here his hemoglobin was 8.7. His hemoglobin of 4.7 was likely due to lab error, possibly from dilution. ?? He has a past medical history of stroke s/p??right??CEA on aspirin and Plavix??as well as history oftraumatic molina placement 03/10/2020 resulting in false urethral passage and recurrent hematuria. He??presented to the Anesthesia ICU following??gross hematuria on 04/10 resulting in syncope and confusion, requiring??6 units??of PRBC.?Urology successfully irrigated the bladder and placed a molina totamponade the bleed. OBJECTIVE VITAL SIGNS: BP (!) 91/52 Pulse 65 Temp 36.9 ??C (Oral) Resp 11 Ht 170 cm Wt 83 kg SpO2 98% BMI 28.72 kg/m?? PHYSICAL EXAM: Gen: resting in bed, alert, no acute distress HEENT: moist mucous membranes Lungs: clear to auscultation bilaterally; no cough; breathing non-labored; no wheezes or crackles CV: regular rate and rhythm, no murmurs, rubs or gallops Abd: soft, mildly tender in hypogastric region, non distended : Molina output appropriate and light orange colored, no gross blood Extremities: warm, dry to touch with no edema. Distal pulses intact NEURO: No focal deficits MSK: moving spontaneously, SCDs not in place for US this AM LABS Component Ref Range & Units 04/12/20 0405 Hemoglobin 13.2 - 16.6 g/dL 9.8Low Hematocrit 38.3 - 48.6 % 30.2Low Erythrocytes 4.35 - 5.65 x10(12)/L 3.31Low MCV 78.2 - 97.9 fL 91.2 RBC Distrib Width 11.8 - 14.5 % 18.1High Platelet Count 135 - 317 x10(9)/L 124Low Leukocytes 3.4 - 9.6 x10(9)/L 9.9High Component Ref Range & Units 04/12/20 0404 Potassium, S 3.6 - 5.2 mmol/L 4.2 Sodium, S 135 - 145 mmol/L 138 Chloride, S 98 - 107 mmol/L 105 Bicarbonate, S 22 - 29 mmol/L 27 Anion Gap 7 - 15 6Low Bld Urea Nitrog(BUN), S 8 - 24 mg/dL 6Low Creatinine, S 0.74 - 1.35 mg/dL 0.93 eGFR-Non Black >=60 mL/min/BSA 79 Comment: ?? ----ADDITIONAL INFORMATION---- Estimated GFR calculated using the 2009 CKD_EPI creatinine equation. eGFR-Black >=60 mL/min/BSA >90 Comment: ?? ----ADDITIONAL INFORMATION---- Estimated GFR calculated using the 2009 CKD_EPI creatinine equation. Calcium, Total, S 8.8 - 10.2 mg/dL 7.9Low Glucose, S 70 - 140 mg/dL 86 Calcium, Ionized, S 4.57 - 5.43 mg/dL 4.69 pH for Ionized Calcium 7.35 - 7.48 7.46 Intake/Output Summary (Last 24 hours) at 04/12/2020 0726 Last data filed at 04/12/2020 0700 Gross per 24 hour Intake 3640 ml Output 4409 ml Net -769 ml PO 680 (400, 280) UOP 1.5 ml/kg/hr - 2909cc total over past 24h IMAGING All imaging results reviewed personally CT Abd Pelvis 04/11 IMPRESSION: 1. No evidence of recent or active hemorrhage within the abdomen or pelvis. 2. Bladder wall thickening and adjacent stranding consistent with cystitis with early ascending infection. 3. Acute pulmonary embolism in the left lower lobe - Acute segmental and subsegmental pulmonary emboli LE US 04/12 1. Positive for age-indeterminate DVT in the right soleal and peroneal veins - per radiology this ismore likely acute 2. Negative for DVT in the left lower extremity ASSESSMENT / PLAN Mr. Hernandez Samayoa is a 74 y.o. 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 #1 Urethral False Passage #2 Anemia Posthemorrhagic Acute (Blood Loss Anemia) #3 Hematuria Gross #4 Change Mental Status #5 Hypotension #6 Herpes Genitalis #7 Hypokalemia ?SYSTEM-BASED PLAN: ?? NEUROLOGIC: - At baseline, AOx3. No focal deficits appreciated. - Pain control: --- Acetaminophen 1000 mg q6h PRN. --- Oxycodone 5 mg q4h PRN. --- Fentanyl 25 mcg q15m PRN. - Neuro checks per ICU routine. ?? CARDIOVASCULAR: - Mildly Hypotensive, no pressors needed - Regular HR - Goal SBP < 160, MAP > 65. - Antiplatelet agents: Holding - Continue home medications: statin, valtrex - Hold following home medications: ASA, Plavix, metoprolol. - Consider resuming ASA when hematuria resolved ?? PULMONARY: - Patient saturating well on 1L NC - LLL PE on CT Abd - no pharmacologic anticoagulation due to high bleed risk - Encourage incentive spirometry. ? RENAL:?? - Origin of hematuria prostatic urethra. Currently maintaining molina tension to tamponade bleeding. CT Abd did not reveal further bleeding. Monitor abdominal exam for bladder distension. - Monitor electrolytes, no repletion needed. - mIVF LR 20ml/hr - UOP appropriate, Goal UOP > 0.5 cc/kg/hr. - Molina catheter in place- CBI, irrigate Q2H. - Maintain molina tension - Finasteride 5mg daily for prostatic bleeding - Bladder Antispasmodic: Trospium 20mg PO BID marielena, B&O Supprets suppository q8h prn - if hematuria becomes refractory, could consider IR intervention to embolize prostate. - If molina obstruction becomes an issue, could obtain US bladder to determine clot burden and need for cystoscopic intervention. ?GI: - Diet: ADAT - PPI: not indicated. - Bowel regimen: polyethylene glycol, senna-docusate, bisacodyl PRN.? HEME: - Left lowe extremity DVT noted on US 04/12, likely source of PE - Will consult vascular medicine regarding recommendations for IVC filter vs pharmacologic anticoagulation - H/H appropriately trending up - No thrombocytopenia. - No active bleeding. - Continue scheduled CBCs, transfuse prn. ? ID: - Patient is afebrile without evidence of active infection on physical exam. - No leukocytosis. - Levofloxacin for UTI ppx ?? ENDOCRINE:?? - Monitor glucose TID, goal < 150. - Insulin needs: not indicated. ?? MSK: - Activity as tolerated - encourage up to chair today - Minimal activity ?? PPX: - DVT: SCDs, chemical anticoagulation is contraindicated in the setting of gross hematuria. - GI: PPI is not indicated at this time. ? ACCESS: PIVs. ? DISPO: Discuss transfer out of ICU today - likely to Urology service ?? CODE: Full, not discussed. Azalia Pepe MD PGY-1 UPDATE 4:18 PM 04/12 -One transient episode of hypotension this afternoon which normalized after 500cc LR -Had a clot and [place] red blood in molina output this afternoon -Repeat Hgb was stable at 9.5 -Consulted Vascular Medicine - recommended no intervention for DVT/PE at this time, and instead performing serial US of LE. Next US should be Saturday 04/15. If no propagation of clot, then can continue to monitor with serial US weekly for 2 weeks thereafter. If propagation of clot or develops symptoms,Vascular Medicine is available to re-evaluate. Once hematuria stabilizes, should receive anticoagulation in the future. -Urology Service agreeable to transfer to the general care floor on their service Nga Hall M.D. - 04/11/2020 4:57 PM CST MISCELLANEOUS NOTE Patient was hypotensive to systolic 70s. Transfused 500mL bolus times two but blood pressure was unresponsive. Patient was not tachycardic and asymptomatic otherwise. Hemoglobin obtained with critical lab result of 4.7. Ordered stat transfusion of 4 units of blood. Also obtained stat coagulation and hematology labs and increased size of Molina balloon to 40 cc for further tamponade. Contacted 7D/E for transfer to ICU. Nga Reyes M.D. Callum Mayorga M.D. - 04/11/2020 11:10 AM CST SUBJECTIVE No specific complaints although he seems a bit delirious this morning. No acute respiratory events. His hemodynamics are acceptable. Urine output is fantastic. Patient last received a unit of blood between two and three this morning. He seemed to have an appropriate response although there is still some drift. I have seen and evaluated the patient and reviewed the pertinent imaging and laboratory data. I havediscussed patient care the Critical Care staff as well as nursing. Please see the resident note of today's date for additional details. OBJECTIVE VITAL SIGNS I have reviewed the current vital sign data as applicable. PHYSICAL EXAM General: Resting comfortably in bed. HEENT: Unremarkable Chest: Bilateral breath sounds Cardiac: Sinus rhythm Abdomen: Soft. Nondistended. Extremities: Warm and perfused. DIAGNOSTICS I have reviewed relevant laboratory, imaging, and other diagnostics as applicable. 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 His chronic anticoagulation is on hold. At this point there is no further interventions planned. I would follow some serial hemoglobins - maybe twice a day is an appropriate pillo. I think he can go to the general care area and the urology service is happy to take him on their service. In terms of the patient's anticoagulation -- looking through prior documentation in [employer], clopidogrel was only recommended for 30 days post carotid endarterectomy and we are past that. Aspirincan be restarted whenever the urology service feels comfortable. Alden Shukla L.R.T. - 04/11/2020 8:39 AM CST Patient is a 74 y.o. male admitted on 04/10/2020 Alert Information: Plan of Care: Patient on room air, ambu bag and mask present. Principal Problem Anemia Posthemorrhagic Acute (Blood Loss Anemia) Oxygen Therapy $Delivery Method: Room air Social History Tobacco Use Smoking Status Former Smoker No results for input(s): PO2 ART, PCO2 ART, PH ART in the last 24 hours. Braulio Durán M.D., M.P.H. - 04/11/2020 7:13 AM CST SICU PROGRESS NOTE SUBJECTIVE The patient is a 74 y.o. year old male admitted 04/10/2020 to the hospital and recently admitted to the ICU for ureteral hemorrhage likely secondary to prosthetic bleed. EVENTS: - Gross hematuria via urethral meatus, intermittently clogged molina. - Molina on tension to tamponade suspected prostatic bleed. - consider IR embolization for ongoing bleed -CBI, q2h flushes. - req norepi initially, weaned OBJECTIVE VITAL SIGNS: Vitals: 04/11/20 0700 BP: (!) 93/53 Pulse: 78 Resp: 16 Temp: SpO2: 98% PHYSICAL EXAM: Gen: well appearing, well-nourished male sitting up in bed Skin: No rashes or abrasions Lymph: no palpable cervical or supraclavicular lymphadenopathy Lungs: clear to auscultation bilaterally; no cough; breathing non-labored; no wheezes or crackles CV: regular rate and rhythm, no murmurs, rubs or gallops Abd: soft, non tender, non distended; no hepatomegaly; normoactive bowel sounds Extremities: warm, dry to touch with no edema. Distal pulses intact NEURO: No focal deficits on cranial nerve. LABS: Recent Labs 04/11/20 0846 04/11/20 0445 04/10/20 1834 04/10/20 1834 NA -- 139 -- 138 CL -- 107 -- 107 BICARB -- 24 -- 23 MG -- -- -- 1.9 CALCIUM -- 7.6 L -- 8.1 L BUN -- 9 -- 10 CREATININE -- 0.87 -- 0.78 GLUCOSE -- 111 -- 157 H HGB 8.3 L 9.0 L < > 11.6 L HCT -- 26.7 L < > 34.8 L WBC -- 10.7 H < > 12.3 H PLT -- 119 L < > 167 INR -- 1.3 < > 1.2 PT -- 14.2 H < > 13.1 H APTT -- -- -- 28 < > = values in this interval not displayed. Assessment #1 Urethral False Passage #2 Anemia Posthemorrhagic Acute (Blood Loss Anemia) #3 Hematuria Gross #4 Change Mental Status #5 Hypotension #6 Herpes Genitalis #7 Hypokalemia Mr. Samayoa is a 74 y.o. male with a past medical history stroke s/p right CEA on aspirin and Plavix aswell as history of traumatic molina placement 03/10/2020 resulting in false urethral passage and recurrent hematuria. He presents to the Anesthesia ICU following gross hematuria on 04/10 resulting in syncope and confusion, requiring 6 units of PRBC. Urology successfully irrigated the bladder overnight and place a larger fully intention to tamponade the bleed. Will plan on following up with a hemoglobin this morning 8.3 should he be doing well he is fit for transfer to the floor. SYSTEM-BASED PLAN: ?? NEUROLOGIC: - Pain control: --- Acetaminophen 1000 mg q6h PRN. ---Oxycodone 5 mg PRN - Neuro checks per ICU routine. ?? CARDIOVASCULAR: - Off NE - Goal SBP < 160, MAP > 65. - Antiplatelet agents: Holding - Hold home metoprolol, will restart after 24 hours - Hold home medications: ASA, Plavix - Resume ASA when hematuria resolved, discontinue Plavix at this time given that his duration was 1 month beginning on the 10 of March. ?? PULMONARY: - Patient saturating well on RA - Encourage incentive spirometry. - No acute issues. ? RENAL:?? - Origin of hematuria prostatic urethra. Currently maintaining molina tension to tamponade bleeding. Monitor abdominal exam for bladder distension. - Monitor electrolytes. - Goal UOP > 0.5 cc/kg/hr. - Molina catheter in place. - Maintain molina tension - Finasteride 5mg daily for prostatic bleeding - Bladder Antispasmodic: Trospium 20mg PO BID marielena, B&O Supres suppository q8h prn - if hematuria becomes refractory, could consider IR intervention to embolize prostate. - If molina obstruction becomes an issue, could obtain US bladder to determine clot burden and need for cystoscopic intervention. ?? GI: - Diet: ADAT - PPI: not indicated. - Bowel regimen: polyethylene glycol, senna-docusate, bisacodyl PRN.? HEME: - H/H stable, S/P 6 units PRBCs - 8am CBCs, transfuse prn. ? ID: - Patient is afebrile without evidence of active infection on physical exam. - No leukocytosis. - Levofloxacin for UTI ppx ? ENDOCRINE:?? - Monitor glucose TID, goal < 150. - Insulin needs: not indicated. ?? MSK: - Activity as tolerated. - Minimal activity: TIDm. ?? PPX: - DVT: SCDs, chemical anticoagulation is contraindicated in the setting of gross hematuria. - GI: PPI is not indicated at this time. ? ACCESS: PIVs. ? DISPO: Likely transfer to the floor today with Urology Chief A service. ?? CODE: Full, not discussed. ?? Thank you for your participation in this patient's care. Please page the Anesthesia Critical Care Service pager at [phone] with any questions or concerns. RNATIONAL MARKETING EXECUTIVE Alden Lopez L.R.T. - 04/10/2020 6:26 PM CST Patient is a 74 y.o. male admitted on 04/10/2020 Alert Information: Plan of Care: Patient on nasal cannula, ambu bag and mask present. Principal Problem Urethral False Passage Oxygen Therapy $Delivery Method: Nasal cannula Social History Tobacco Use Smoking Status Former Smoker No results for input(s): PO2 ART, PCO2 ART, PH ART in the last 24 hours. RNATIONAL MARKETING EXECUTIVE documented in this encounter H&P Notes Yordy Alejandro M.D. - 04/11/2020 6:36 PM CST Briefly this is a 74-year-old gentleman who was transferred out of our unit earlier today in stable condition however this afternoon he was found to have a hemoglobin of 4.7 and was transferred back tot surgical ICU out of concern for ongoing bleeding. Here his hemoglobin was 8.7. His hemoglobin of4.7 was likely due to lab error, possibly from dilution. He is hemodynamically stable and afebrile. He does complain of very mild suprapubic abdominal pain which he rates 2/10. He received 2 units of packed red blood cells here. Our plan at this time to obtain a CT scan of his abdomen and pelvis to assess for any changes. Anticipate if patient remains stable we will transfer him back to the urology [facility]. He has a past medical history of stroke s/p right CEA on aspirin and Plavix as well as history of traumatic molina placement 03/10/2020 resulting in false urethral passage and recurrent hematuria. He??presented to the Anesthesia ICU following??gross hematuria on 04/10 resulting in syncope and confusion, requiring 6 units of PRBC. Urology successfully irrigated the bladder overnight and place a larger fully intention to tamponade the bleed. ?? #1 Urethral False Passage #2 Anemia Posthemorrhagic Acute (Blood Loss Anemia) #3 Hematuria Gross #4 Change Mental Status #5 Hypotension #6 Herpes Genitalis #7 Hypokalemia SYSTEM-BASED PLAN: ?? NEUROLOGIC: - Pain control: --- Acetaminophen 1000 mg q6h PRN. ---Oxycodone 5 mg PRN - Neuro checks per ICU routine. ?? CARDIOVASCULAR:?? - Off NE?? - Goal SBP < 160, MAP > 65. - Antiplatelet agents:??Holding - Hold home metoprolol, will restart after 24 hours - Hold home medications:??ASA, Plavix -?Resume ASA when hematuria resolved, discontinue Plavix at this time given that his duration was1 month beginning on the 10 of March. ?? PULMONARY: - Patient saturating well on??RA - Encourage incentive spirometry. - No acute issues. ? RENAL:?? - Origin of hematuria prostatic urethra. Currently maintaining molina tension to tamponade bleeding. Monitor abdominal exam for bladder distension.?? - Monitor electrolytes. - Goal UOP > 0.5 cc/kg/hr. - Molina catheter in place. - Maintain molina tension - Finasteride 5mg daily for prostatic bleeding - Bladder Antispasmodic: Trospium 20mg PO BID marielena, B&O Supres suppository ??q8h prn - if hematuria becomes refractory, could consider IR intervention to embolize prostate. - If molina obstruction becomes an issue, could obtain US bladder to determine clot burden and need for cystoscopic intervention.? GI: - Diet:??ADAT?? - PPI: not indicated. - Bowel regimen: polyethylene glycol, senna-docusate, bisacodyl PRN.? HEME: - H/H stable, S/P 6 units PRBCs - 8am CBCs, transfuse prn.? ID: - Patient is afebrile without evidence of active infection on physical exam. - No leukocytosis. - Levofloxacin for UTI ppx ? ENDOCRINE:?? - Monitor glucose TID, goal < 150. - Insulin needs: not indicated. ?? MSK: - Activity as tolerated. - Minimal activity: TIDm. ?? PPX: - DVT: SCDs, chemical anticoagulation is contraindicated in??the setting of gross hematuria. - GI: PPI is not indicated at this time. ? ACCESS: PIVs. ? DISPO: Likely transfer to back to floor with Urology Chief A service. ?? CODE: Full, not discussed. ?? Thank you for your participation in this patient's care. Please page the Anesthesia Critical Care Service pager at [phone] with any questions or concerns. RNATIONAL MARKETING EXECUTIVE Kiel Martell M.D. - 04/10/2020 7:09 PM CST SUBJECTIVE CHIEF COMPLAINT Hematuria HISTORY OF PRESENT ILLNESS Mr. Samayoa is a 74-year-old gentleman admitted from [facility] for hematuria. Briefly, his past medical history is significant for a stroke last month. He was evaluated at [facility] and underwent a carotid endarterectomy. Unfortunately, he had a traumatic Molina catheter placement creating a urethral false passage. He had persistent hematuria after this requiring multiple cystoscopies. It sounds like he was instructed to hold the aspirin and clopidogrel prescribed for his cerebrovascular disease, but he continued these medications. Today, he was on the commode, felt weak, and was unable to get up. He had increased bleeding and clots from the Molina catheter. EMS was called and he was transferred to [facility]. His hemoglobin there was found to be 7.3. He received 4 units of red blood cells and was transferred here for further care. On arrival, he is awake but confused. He has a normal work of breathing on nasal cannula oxygen. He is normotensive. His abdomen is distended and mildly tender. No peritoneal signs. There isblood present in the Molina catheter. REVIEW OF SYSTEMS Patient confused. Unable to obtain review of systems. OBJECTIVE VITAL SIGNS I have reviewed the current vital sign data as applicable to this admission. PHYSICAL EXAM General: Elderly chronically ill-appearing gentleman Heart: Regular Lungs: Clear bilaterally Abdomen: Distended, tender Skin: Good capillary refill Neurological: Oriented to self only : Benja blood from Molina catheter DIAGNOSTICS I have reviewed relevant laboratory, imaging, and other diagnostics as applicable to this admission. 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 Ensure good IV access. 2. Basic ICU labs including coags and a type and screen. 3. Continuous bladder irrigation. 4. Urology consult. 5. Mechanical DVT prophylaxis. For further details of the systems based plan of care, please see the critical care note from today. Critical care time 45 minutes. Time billed reflects time at the bedside caring for and directing care of this critically ill patient. Procedure time is billed separately. RNATIONAL MARKETING EXECUTIVE Lobito Jones M.D. - 04/10/2020 6:59 PM CST SUBJECTIVE CHIEF COMPLAINT Hematuria HISTORY OF PRESENT ILLNESS Mr. Samayoa is a 74 y.o. male with a past medical history of of CVA s/p right CEA 03/10/2020 on ASA andplavix,, HTN, low back pain, and history of BPH s/p TURP who presents to the Anesthesia ICU as a transfer from [facility] with brisk hematuria requiring blood transfusions. Mr. Samayoa initially sustained a urethral injury on March 10 2020 while hospitalized for CEA following a stroke. He developed post-operative urinary retention requiring molina catheterization. Unfortunately, this was complicated by traumatic molina catheterization with creation of a false lumen and gross hematuria. He required blood transfusions following this, and unfortunately became unresponsive and bradycardic resulting in a code and transfer to the ICU for hypoxic/hypercarbic respiratory failure requiring BiPAP and diuresis for volume overload and antibiotics for CAP. He was discharged 03/15 with a molina catheter in place. He was sent out on aspirin and plavix, with instruction to stop plavix on 04/06. Unfortunately, he developed bleeding and presented to [facility] where cystoscopy was performed with ureteral dilation and clot evaluation on 03/28/19. ASA and Plavix were held at that time, though both were resumed at the time of discharge on 03/31. Per report, he has continued with plavix since then, despite the initial plan to discontinue plavix on 04/06. Today, he was on the commode felt weak and was unable to get up. He had increased bleeding and clotsfrom the Molina catheter. EMS was called and he was transferred to [facility]. His hemoglobin there was found to be 7.3. He received 4 units of red blood cells and was transferred here for further care. On arrival, he is awake but confused. He has a normal work of breathing on nasal cannula oxygen. He is normotensive. His abdomen is distended and mildly tender. No peritoneal signs. There is blood present in the Molina catheter and he developed an episode of gross hematuria with clot and bright red blood from the urethral meatus which was controlled with manual pressure. Urology was consulted STAT for further management recommendations. CURRENT MEDICATIONS Reviewed ALLERGIES/ADVERSE REACTIONS Allergies as of 04/10/2020 ??? (No Known Allergies) SYSTEMS REVIEW Review of systems not obtained due to patient factors: altered mental status. PAST MEDICAL/SURGICAL HISTORY No past medical history on file. SOCIAL HISTORY Social History Socioeconomic History ??? Marital status: Single Spouse name: Not on file ??? Number of children: Not on file ??? Years of education: Not on file ??? Highest education level: Not on file Occupational History ??? Not on file Social Needs ??? Financial resource strain: Not on file ??? Food insecurity Worry: Not on file Inability: Not on file ??? Transportation needs Medical: Not on file Non-medical: Not on file Tobacco Use ??? Smoking status: Former Smoker Substance and Sexual Activity ??? Alcohol use: Not on file ??? Drug use: Not on file ??? Sexual activity: Not on file Lifestyle ??? Physical activity Days per week: Not on file Minutes per session: Not on file ??? Stress: Not on file Relationships ??? Social connections Talks on phone: Not on file Gets together: Not on file Attends anabaptist service: Not on file Active member of club or organization: Not on file Attends meetings of clubs or organizations: Not on file Relationship status: Not on file ??? Intimate partner violence Fear of current or ex partner: Not on file Emotionally abused: Not on file Physically abused: Not on file Forced sexual activity: Not on file Other Topics Concern ??? Not on file Social History Narrative ??? Not on file FAMILY HISTORY No family history on file. OBJECTIVE VITAL SIGNS Vitals: 04/10/202016 BP: Pulse: Resp: 20 Temp: SpO2: 100% PHYSICAL EXAMINATION Constitutional: Alert and oriented x3, in no apparent distress. HEENT: Normocephalic, atraumatic, PEERLA, extraocular eye movements intact. Neck: Normal neck ROM supple, trachea midline. Cardiovascular: RRR, no rubs/gallops/murmurs. Distal pulses 2+. Pulmonary: Lungs clear to ascultation bilaterally, breath sounds clear. Abdominal: Suprapubic region tender and distended, no guarding or rebound, + bowel sounds. : Bright red blood and clots per urethral meatus. Molina catheter in place pink tinged drainage. Musculoskeletal: No swelling, moving all four extremities with full ROM. Neurologic: No focal deficits, speech clear and fluent, full sensation distally. Skin: Intact, warm, no rashes or abrasions. Intake/Output Summary (Last 24 hours) at 04/10/2020 2230 Last data filed at 04/10/2020 2100 Gross per 24 hour Intake 1494.48 ml Output 266 ml Net 1228.48 ml LABS Lab Results Component Value Date WBC 13.0 (H) 04/10/2020 HGB 10.0 (L) 04/10/2020 HCT 30.3 (L) 04/10/2020 MCV 95.9 04/10/2020 PLT 144 04/10/2020 Lab Results Component Value Date NA 138 04/10/2020 CL 107 04/10/2020 CREATININE 0.78 04/10/2020 BUN 10 04/10/2020 ANIONGAP 8 04/10/2020 GLUCOSE 157 (H) 04/10/2020 CALCIUM 8.1 (L) 04/10/2020 No lab exists for component: [id number] Results from last 7 days Lab Units 04/10/20 1834 LACTATE mmol/L 1.9 ASSESSMENT / PLAN Mr. Samayoa is a 74 y.o. male with a past medical history stroke s/p righe CEA on aspirin and plavix aswell as history of traumatic molina placement 03/10/2020 resulting in false urethral passage and recurrent hematuria. He presents to the Anesthesia ICU following gross hematuria on 04/10 resulting in syncope and confusion, requiring 4 units of pRBC. Upon presentation to the ICU, he developed an additional episode of gross hematuria, with significant bloody output through the molina as well as brisk bleeding through the urethral meatus. Urology came to the bedside to evaluate the patient, at which point he was found to have obstruction of the molina catheter. Eventually, they were able to successfully i rrigate and drain the bladder, and subsequently placed the molina on tension to tampanode the suspected urethral hemorrhage. #1 Urethral False Passage #2 Anemia Posthemorrhagic Acute (Blood Loss Anemia) #3 Hematuria Gross #4 Change Mental Status #5 Hypotension #6 Herpes Genitalis #7 Hypokalemia SYSTEM-BASED PLAN: NEUROLOGIC: - Mental status altered, waxing and waning. At baseline, per report from family, pt is able to converse appropriately and is AOx3. No focal deficits appreciated. - Pain control: --- Acetaminophen 1000 mg q6h PRN. --- Oxycodone 5 mg q4h PRN. --- Fentanyl 25 mcg q15m PRN. - Neuro checks per ICU routine. CARDIOVASCULAR: Hypotensive requiring norepi infusion, s/p 1uPRBC, 1l LR, 500ml 5% Albumin. - Goal SBP < 160, MAP > 65. - Antiplatelet agents: Holding - Continue home medications: - Hold home medications: ASA, Plavix, metoprolol. - Resume ASA when hematuria resolved, discontinue plavix at this time. PULMONARY: - Patient saturating well on 1L NC - Encourage incentive spirometry. - No acute issues. RENAL: - Origin of hematuria prostatic urethra. Currently maintaining molina tension to tamponade bleeding. Monitor abdominal exam for bladder distension. - Monitor electrolytes. - IVF: LR 1L, 500ml 5% Albumin. - Goal UOP > 0.5 cc/kg/hr. - Molina catheter in place- CBI, irrigate Q2H. - Maintain molina tension - Finasteride 5mg daily for prostatic bleeding - Bladder Antispasmodic: Trospium 20mg PO BID marielena, B&O Supprets suppository q8h prn - if hematuria becomes refractory, could consider IR intervention to embolize prostate. - If molina obstruction becomes an issue, could obtain US bladder to determine clot burden and need for cystoscopic intervention. GI: - Diet: ADAT - PPI: not indicated. - NGT in place. - Bowel regimen: polyethylene glycol, senna-docusate, bisacodyl PRN. HEME: - H/H stable. - No thrombocytopenia. - No acute issues. - Continue scheduled CBCs, transfuse prn. ID: - Patient is afebrile without evidence of active infection on physical exam. - No leukocytosis. - Levofloxacin for UTI ppx ENDOCRINE: - Monitor glucose TID, goal < 150. - Insulin needs: not indicated. MSK: - Activity as tolerated. - Minimal activity: TIDm. PPX: - DVT: SCDs, chemical anticoagulation is contraindicated in the setting of gross hematuria. - GI: PPI is not indicated at this time. ACCESS: PIVs. DISPO: ICU. CODE: Full, not discussed. Thank you for your participation in this patient's care. Please page the Anesthesia Critical Care Service pager at [phone] with any questions or concerns. Electronically signed by: Lobito Jones M.D. 04/10/20 11:00 PM INTERNATIONAL MARKETING EXECUTIVE RNATIONAL MARKETING EXECUTIVE documented in this encounter Consult Notes Radu Draper M.D. - 04/12/2020 12:28 PM CST Consults SUBJECTIVE REASON FOR CONSULT LLL PE with R LE DVT in pt with urologic hemorrhage - IVC Filter vs pharmacologic intervention indicated? ######################### #####Note in progress ####### ######################### HISTORY OF PRESENT ILLNESS Mr. Samayoa is a 74 y.o. male admitted on 04/10/2020 for Urethral False Passage [N36.5] Anemia Posthemorrhagic Acute (Blood Loss Anemia) [D62]. Opinion on the optimal management of incidentally identified pulmonary embolism and asymptomatic calf DVT. He has been dealing with significant urologic hemorrhage. In fact, recently he received 6 units of packed red blood cells. He had been doing better and transferred out of the ICU setting, however, he was found once again to have low hemoglobin and some hypotension. He was subsequently brought back into the ICU setting and received yet more packed red blood cells. As part of his workup he underwent imaging which demonstrated an incidental pulmonary embolism. Subsequent leg ultrasounds have also do event demonstrated the presence of a calf DVT. Just recently, although the hemorrhage from the bladder had ceased, it seems as though it may have just started back up again. In getting a history, the details are somewhat sketchy as the patient himself is a rather poor historian. His does try and help but again some of the details are sketchy. From what I can surmise, he developed an acute stroke around 03/07/2020. He was seen briefly at a local emergency room and then transferred to the tertiary care center [facility]. The patient does not recall catheter directed intracranial lead lytic therapy such as with TCP tPA either again catheter directed or systemic. It sounds as though they found a thrombus and/or significant plaque in his right internal carotid artery and I believe he underwent right carotid endarterectomy either on 03/07 or 03/08/2020. In anticipation of that procedure, he required Molina catheterization. How however, they encountered significant difficulties in placing the catheter and a significant amount of force was required. At any rate, the patient underwent the endarterectomy but then afterwards was placed on both aspirin and Plavix and developed bleeding urologically. This led to an episode of hypotension and respiratory failure requiring a 4 day stent in the ICU when he was on vasopressors. I believe he gradually recovered but then at home continued to have issues with bladder bleeding and in fact on 1 occasion actually passed out whileon the toilet held up by his . I believe all of his previous continued bladder hemorrhages have occurred while on aspirin and Plavix. I believe all blood thinners have now been discontinued. He hashad a number of blood transfusions including at least for only 2 days ago. He still has a Molina chapin ter in place right now which shows a clive colored urine at present. He has not had any blood transfusions today now. Again, as a part of the workup he underwent scanning of his abdomen and pelvis which incidentally discovered this thrombus in the left lower lobe. This was seen on both axial cuts in coronal views and thus it is certainly a lakisha faby thrombus. This led to scanning of his lower limbs which did show peroneal vein and soleal vein deep vein thrombosis in the right lower limb otherwise negative. Despite these findings, the patient emphatically denies any chest pain, shortness of breath, presyncope, syncope, or leg discomfort and or swelling. Basically he is completely asymptomatic from his venous thromboembolism. Further, the patient has never had a history of venous thromboembolism and denies a family history of such. He does not ingest hormone based therapy. He has never had a known malignancy. Of course, he has been quite immobilized here in the hospital. The patient has had longstanding issues with a being able to pass bowel movements. At least anecdotally, the patient notes that if he has to strain hard to have a bowel though but he is more liable to have urethral bleeding. This is improved if he takes a suppository. A complete medical review of systems was performed and deemed otherwise unremarkable. REVIEW OF SYSTEMS 11 systems reviewed. Pertinent positives and pertinent negatives are documented in the history of present illness. The following portions of the patient's history were reviewed and updated as appropriate: allergies,current medications, family history, medical history, social history, surgical history, problem list, labs, diagnostics tests. I reviewed the pertinent clinical notes in the electronic health record. OBJECTIVE PHYSICAL EXAMINATION Vital Signs BP (!) 73/55 Pulse 82 Temp 36.9 ??C (Oral) Resp 15 Ht 170 cm Wt 83 kg SpO2 93% BMI 28.72 kg/m?? Body mass index is 28.72 kg/m??. Physical Exam General: He is lying in a bed flat in no apparent distress and able to immediately and accurately answer questions. Psychiatric: Alert and oriented. Cardiac: S1 and S2 present. No definite S3 or S4. Regular rate and rhythm. He may have assess very subtotal bruit over the right carotid artery but none over the left carotid artery. His surgical scar is healing well along the right neck. Pulmonary: At least anteriorly, clear to auscultation with fair air exchange the bases. I did not hear wheezes. HEENT: This exam was essentially deferred. GI: The abdomen is somewhat obese but otherwise soft and nontender. He does have some irritation to percussion directly over the bladder. No obvious organomegaly appreciated. No obvious pulsations overthe aorta. No obvious flank varicosities. No groin lymphadenopathy. Extremities: There really is no discernible asymmetric edema and the lower limb coloration is symmetric. Pulse exam: He has equal and symmetric pulses in the proximal and distal portions of the lower limbs. Skin/joints/muscles: At least where I could examine, essentially unremarkable. DIAGNOSTIC REVIEW All labs and diagnostic studies were reviewed. Most recent hemoglobin of 9.8, platelet count of 124k, leukocytes essentially normal. Today's basic metabolic panel is normal. CT abdomen and pelvis with IV contrast, 04/11/2020 at 10:07 p.m.: IMPRESSION: 1. No evidence of recent or active hemorrhage within the abdomen or pelvis. 2. Bladder wall thickening and adjacent stranding and mild ureterectasis and periureteral stranding of the lower ureters is nonspecific but can be seen in the setting of cystitis with early ascending infection. 3. Acute pulmonary embolism in the left lower lobe. Bilateral lower limb standard venous duplex today at 9:40 a.m.: No comparisons. IMPRESSION: 1. Positive for age-indeterminate DVT in the right soleal and peroneal veins. 2. Negative for DVT in the left lower extremity. ASSESSMENT / PLAN #1 Urethral False Passage #2 Anemia Posthemorrhagic Acute (Blood Loss Anemia) #3 Hematuria Gross #4 Change Mental Status #5 Hypotension #6 Herpes Genitalis #7 Hypokalemia In summary, asymptomatic venous thromboembolic disease (RLE distal and asymptomatic DVT and LLL asymptomatic PE) in a gentleman with ongoing issues with bladder hemorrhage requiring multiple blood transfusion as recently as 48 hours ago. I had a long talk with him today about the options. Given his asymptomatic status and the distal nature of his venous thromboembolic disease, I would suggest that we simply survey the right lower limb with repeat ultrasound on either Tuesday or Tuesday of next week. As long as his thrombus does not prop agate into the proximal system, I would forego formal blood thinner therapy and IVC filter at this juncture. Should he have new symptoms suggestive of worsening deep vein thrombosis and/or pulmonary embolism, immediate investigation should take place. In that scenario, if proximal deep vein thrombosis or worsening pulmonary embolism is confirmed, will have no choice but to interrupt the IVC or initiate therapeutic anticoagulation. Of course, if he is still having bladder hemorrhage, the IVC filter would be the best modality at that time. Perhaps in a few days, provided he has no clinical signs of ongoing hemorrhage and stable CBC, wouldsuggest the initiation of prophylactic low-molecular weight heparin. This will allow us to observe his tolerance of blood thinner therapy. Eventually, if he is able to fully heal the urethral tract, he should be initiated on blood thinner therapy. As this is clearly a provoked event, the duration of blood thinner therapy should be 3 months with a repeat right lower limb standard venous duplex at that time. If his blood clot is resolved or minimally present, blood thinner therapy can be stopped. The difficult question here is when to think about reinitiating antiplatelet agent given his recent right carotid endarterectomy. I would likely forego any antiplatelet therapy until we are certain that he has fully healed his urethral tract. Additionally, I would favor anticoagulation for his venous t hromboembolism take precedence over antiplatelet agents at least at this juncture. Well down the road, we could look at adding low-dose aspirin to blood thinner therapy but again would forego that for the next month at least. The type of blood thinner therapy could be either a direct oral anticoagulant or standard Lovenox bridged to Coumadin with a target INR of between 2 and 3. I see no direct contraindications to either option. Certainly, convenience and likely bleeding risk would favor the direct oral anticoagulant option over Coumadin although these medications tend to be prohibitively expensive. I do not think this small distal deep vein thrombosis should preclude activity. He asked my opinion about using a suppository given the fact that he seems to have more urethral bleeding with significant Valsalva maneuvers such as with a bowel movement. I see no issue with that butwould defer that to the primary team. I will sign off at this juncture. Please do not hesitate to contact me if his clinical status changes or he proves to have thrombus propagation on repeat ultrasound early next week. Pager [phone] I personally spent a total of 60 minutes face to face with the patient, reviewing records and test results and/or coordination of care as described above Radu Draper M.D. Callum Ramos M.D. - 04/11/2020 12:13 AM CSTAssociated Order(s): Urology consult (hospital) - [facility] Urology consult (hospital) - [facility] Referring Provider: Lobito Jones M.D. CHIEF COMPLAINT Gross hematuria HISTORY OF PRESENT ILLNESS Mr. Samayoa is a 74-year-old male with a medical history notable for cerebral vascular accidents (in 2016 and more recently in February of 2020, on aspirin and Plavix), TURP in 1999, coronary artery disease, carotid artery stenosis with cerebral infarction, mild cognitive impairment, and hyperlipidemia who was admitted directly to the 7 D/E ICU from an outside hospital for gross hematuria requiring CBI and blood transfusions. In February, he was admitted to an outside hospital and was diagnosed with a CVA. He underwent a right CEA. Post-operatively he developed urinary retention and had a Molina catheter placed. In review ofhis records, this was a traumatic insertion that resulted in gross hematuria requiring CBI. His hematuria persisted despite CBI and he eventually underwent cystoscopy, bladder neck dilation and clot evacuation (No op note available in records). His hospital course was also complicated by sepsis from pneumonia. He was discharged from the hospital on 03/15/2020 on Aspirin/Plavix for one months durationand scheduled with outpatient follow-up with Urology for Molina catheter removal and voiding trial. Unfortunately, he had ongoing hematuria and underwent a repeat cystoscopy, urethral dilation and clot evacuation on 03/28/2019. The op note reports a false passage was visualized in the prostatic urethra. His catheter was replaced and he was discharged on 03/31/2019 with plans for a voiding trial in approximately 3- 4 weeks. Today he was on the toilet and felt weak and was unable to get up. He also noticed increased bleeding and clots from his catheter. He was transported to [facility] by EMS. His hemoglobin was found to be 7.3 arrival, he received 4 units of red blood cells and was transferred to 7 D/E ICU for further cares. On my evaluation, he was afebrile and hemodynamically stable. His catheter had just been irrigated by the urology catheter tech team. They irrigated out approximately 250 cc of clot and resumed his CBIat a fast rate. His urine was light pink at this time. I was called back to the patients bedside about an hour later as the patient had developed significant growth hematuria with clots around the catheter. His bladder was also significant distended. CBI was turned off and his Molina catheter was again irrigated. Initial attempts at hand irrigation were uns uccessful, however, we were eventually able to break up the clot in order to decompress his bladder.He had retained close to 1.5 L. His bladder was then easily irrigated until it was a light red. CBI was resumed at a moderate rate. PAST MEDICAL HISTORY 1. CVA 2. Cerebral artery stenosis 3. Coronary artery disease 4. Hyperlipidemia 5. Genital herpes 6. BPH Pertinent medications: Aspirin and Plavix are held Allergies: NKA PAST SURGICAL HISTORY 1. TURP in 1999 for BPH 2. Right CEA February 2020 3. Cystoscopy with clot evac and urethral dilation x2 FAMILY HISTORY Negative for malignancy SOCIAL HISTORY Former smoker SYSTEMS REVIEW Constitutional: Positive for fatigue. Gastrointestinal: Positive for abdominal (belly) pain or cramping. Genitourinary: Positive for pain with urination and hematuria. The following systems were negative: Skin, Eyes, ENT, CV, Respiratory, Hematologic, Musculoskeletal,Neuro, Psych PHYSICAL EXAMINATION Constitutional: No distress. Cardiovascular: Normal rate. Pulmonary/Chest: Effort normal. Abdominal: Suprapubic distention Neurological: He is alert. Skin: Skin is warm and dry. Psychiatric: His behavior is normal. Genitourinary: 3-way Molina catheter in place, light pink urine in tubing, gross hematuria and clots around catheter LABS Lab Results Component Value Date NA 138 04/10/2020 CL 107 04/10/2020 CREATININE 0.78 04/10/2020 HGB 8.7 (L) 04/10/2020 HCT 30.3 (L) 04/10/2020 WBC 13.0 (H) 04/10/2020 IMAGING AND TESTS None IMPRESSION/ASSESSMENT #1 Urethral False Passage #2 Anemia Posthemorrhagic Acute (Blood Loss Anemia) #3 Hematuria Gross #4 Change Mental Status #5 Hypotension #6 Herpes Genitalis #7 Hypokalemia Mr. Samayoa is a pleasant 74-year-old gentleman with a history of traumatic catheterization in February2020 on dual antiplatelet therapy for recent stroke who presents with gross hematuria status post 2 clot evacuations requiring CBI and multiple blood transfusions. In review of his records, the source of his bleeding is likely from the prostatic urethra where a false passage was visualized. This is a very vascularized area and certainly tenuous in the setting of anticoagulation use. We were able to irrigate his catheter to a reasonable level of clarity and resume his CBI at a moderate rate. His catheter was placed on tension. We will continue to follow along. PLAN - Maintain catheter on tension - CBI per catheter tech protocol - Recommend scheduled irrigations Q2Hrs with 250 mL - Bladder spasm management with Trospium 20 mg BID and PRN B&O suppositories - Can initiate Finasteride 5 mg to help decrease prostatic bleeding - Bladder US in morning if worsening hematuria to evaluate clot burden The above was discussed with Dr. Bob, the chief urology resident applications project manager. Please page chief UrologyService Team [place] [phone] during business hours [place] [phone] after hours. Signed: Callum Charlton M.D. RNATIONAL MARKETING EXECUTIVE documented in this encounter Nursing Notes Zuri Kwong R.N. - 04/15/2020 12:42 PM CST Problem: PAIN - ADULT Goal: PT VERBALIZES/DEMONSTRATES ADEQUATE COMFORT LEVEL OR BASELINE Outcome: Adequate for Discharge Problem: KNOWLEDGE DEFICIT Goal: Patient/family/caregiver demonstrates understanding of disease process, treatment plan, medications, and discharge instructions Outcome: Adequate for Discharge Problem: INFECTION - ADULT Goal: Absence of infection during hospitalization Outcome: Adequate for Discharge Problem: SKIN/TISSUE INTEGRITY Goal: Skin/Tissue integrity maintained or improved Outcome: Adequate for Discharge Goal: Oral and Nasal mucous membranes remain intact Outcome: Adequate for Discharge Problem: SAFETY ADULT Goal: Maintain a safe environment Outcome: Adequate for Discharge Problem: DISCHARGE PLANNING Goal: Patient discharge needs identified Outcome: Adequate for Discharge Problem: POTENTIAL OR ACTUAL PRESSURE INJURY-ADULT Goal: Manage sensory Perception deficits to maintain and/or improve skin integrity Outcome: Adequate for Discharge Goal: Maintain optimal skin moisture to ensure or improve skin integrity Outcome: Adequate for Discharge Goal: Achieve optimal activity and/or mobility to maintain or improve skin integrity Outcome: Adequate for Discharge Goal: Nutrient intake appropriate for improving, restoring or maintaining skin integrity Outcome: Adequate for Discharge Goal: Minimize friction and/or shear to maintain or improve skin integrity Outcome: Adequate for Discharge Problem: Compromised Skin Integrity Goal: Skin/Tissue integrity maintained or improved Outcome: Adequate for Discharge Goal: Oral and Nasal mucous membranes remain intact Outcome: Adequate for Discharge Goal: Incisions, wounds, or drain sites healing without S/S of infection Outcome: Adequate for Discharge Problem: Incontinence and/or Moisture Goal: Skin integrity is maintained or improved Outcome: Adequate for Discharge Problem: SAFETY ADULT - RISK FOR FALL AND OR FALL INJURY Goal: Patient remains free from fall/fall injury Outcome: Adequate for Discharge Problem: ALTERED NUTRIENT INTAKE - ADULT Goal: Nutrient intake appropriate for improving, restoring or maintaining nutritional needs Outcome: Adequate for Discharge Problem: SWALLOWING Goal: Prevention of aspiration Outcome: Adequate for Discharge Shift Goals: Clinical Goals for the Shift: Patient will have adequate urine output during this shift. Identify possible barriers to meeting goals/advancing plan of care: none End of Shift Summary: Patient had adequate urine output throughout the shift. Patient will be discharging today with a urinary catheter and was educated on irrigation PRN. Patient came in with a urinary catheter. Patient and significant other feel comfortable with the education and do not have any questions or concerns at this time. RN went through discharge paperwork with patient and significant other. Phone numbers given if questions or concerns arise. RNATIONAL MARKETING EXECUTIVE Maral Ceron R.N. - 04/14/2020 5:53 AM CST Shift Goals: Clinical Goals for the Shift: patient will have adequate urine output overnight Identify possible barriers to meeting goals/advancing plan of care: recent hematuria and low UOP End of Shift Summary: Patient had excellent urine output overnight. Light yellow and clear with no signs of bleeding. Gauze around penis remains in place but does not appear to have any additional drainage on it. RN encouraged patient to increase oral intake. Patient did so and had immediate improvement in blood pressure and UOP. Problem: PAIN - ADULT Goal: PT VERBALIZES/DEMONSTRATES ADEQUATE COMFORT LEVEL OR BASELINE Outcome: Progressing Problem: KNOWLEDGE DEFICIT Goal: Patient/family/caregiver demonstrates understanding of disease process, treatment plan, medications, and discharge instructions Outcome: Progressing Problem: INFECTION - ADULT Goal: Absence of infection during hospitalization Outcome: Progressing Problem: SKIN/TISSUE INTEGRITY Goal: Skin/Tissue integrity maintained or improved Outcome: Progressing Goal: Oral and Nasal mucous membranes remain intact Outcome: Progressing Problem: SAFETY ADULT Goal: Maintain a safe environment Outcome: Progressing Problem: DISCHARGE PLANNING Goal: Patient discharge needs identified Outcome: Progressing Problem: POTENTIAL OR ACTUAL PRESSURE INJURY-ADULT Goal: Manage sensory Perception deficits to maintain and/or improve skin integrity Outcome: Progressing Goal: Maintain optimal skin moisture to ensure or improve skin integrity Outcome: Progressing Goal: Achieve optimal activity and/or mobility to maintain or improve skin integrity Outcome: Progressing Goal: Nutrient intake appropriate for improving, restoring or maintaining skin integrity Outcome: Progressing Goal: Minimize friction and/or shear to maintain or improve skin integrity Outcome: Progressing Problem: Compromised Skin Integrity Goal: Skin/Tissue integrity maintained or improved Outcome: Progressing Goal: Oral and Nasal mucous membranes remain intact Outcome: Progressing Goal: Incisions, wounds, or drain sites healing without S/S of infection Outcome: Progressing Problem: Incontinence and/or Moisture Goal: Skin integrity is maintained or improved Outcome: Progressing Problem: SAFETY ADULT - RISK FOR FALL AND OR FALL INJURY Goal: Patient remains free from fall/fall injury Outcome: Progressing Problem: ALTERED NUTRIENT INTAKE - ADULT Goal: Nutrient intake appropriate for improving, restoring or maintaining nutritional needs Outcome: Progressing Problem: SWALLOWING Goal: Prevention of aspiration Outcome: Progressing RNATIONAL MARKETING EXECUTIVE Radha Ventura R.R.T., L.R.T. - 04/12/2020 11:27 AM CST Patient is a 74 y.o. male admitted on 04/10/2020 Alert Information: Plan of Care: Pt seen on room air with no current respiratory issues, continue to assess and monitorwhile in the ICU. Principal Problem Anemia Posthemorrhagic Acute (Blood Loss Anemia) Oxygen Therapy $Delivery Method: Room air Social History Tobacco Use Smoking Status Former Smoker No results for input(s): PO2 ART, PCO2 ART, PH ART in the last 24 hours. RNATIONAL MARKETING EXECUTIVE Carissa Hoffman R.R.T., L.R.T. - 04/10/2020 11:06 PM CST Patient is a 74 y.o. male admitted on 04/10/2020 Alert Information: Plan of Care: Continue to monitor patient's respiratory status while in ICU. Titrate supplemental oxygen as tolerated. Encourage pulmonary hygiene, coughing and deep breathing. Principal Problem Anemia Posthemorrhagic Acute (Blood Loss Anemia) Oxygen Therapy $Delivery Method: Nasal cannula Social History Tobacco Use Smoking Status Former Smoker No results for input(s): PO2 ART, PCO2 ART, PH ART in the last 24 hours. Electronically signed by: Carissa Hoffman R.R.T., L.R.TMak 04/10/20 11:06 PM INTERNATIONAL MARKETING EXECUTIVE RNATIONAL MARKETING EXECUTIVE documented in this encounter Miscellaneous Notes Hospital Course - Nga Reyes M.D. - 04/11/2020 11:20 AM CST Mr. Samayoa is a 74 y.o. male with a past medical history of of CVA s/p right CEA 03/10/2020 on ASA andplavix,, HTN, low back pain, and history of BPH s/p TURP who presents to the Anesthesia ICU as a transfer from [facility] with brisk hematuria requiring blood transfusions. ?? Mr. Samayoa initially sustained a urethral injury on March 10 2020 while hospitalized for CEA following a stroke. He developed post-operative urinary retention requiring molina catheterization. Unfortunately, this was complicated by traumatic molina catheterization with creation of a false lumen and gross hematuria. He required blood transfusions following this, and unfortunately became unresponsive and bradycardic resulting in a code and transfer to the ICU for hypoxic/hypercarbic respiratory failure requiring BiPAP and diuresis for volume overload and antibiotics for CAP. He was discharged 03/15 with a molina catheter in place. He was sent out on aspirin and plavix, with instruction to stop plavix on 04/06. ?? Unfortunately, he developed bleeding and presented to [facility] where cystoscopy was performed with ureteral dilation and clot evaluation on 03/28/19. ASA and Plavix were held at that time, though both were resumed at the time of discharge on 03/31. Per report, he has continued with plavix since then, despite the initial plan to discontinue plavix on 04/06. ?? Urology was consulted and placed a larger Molina with tension in addition to irrigation. After receiving a total of 6 units of blood hemoglobin remained stable at 8.3 and he was transferred to the Urology service. He became hypotensive on the floor and was transferred back to ICU due to concern for furt her hemorrhage. Repeat CT abdomen pelvis demonstrated no hemorrhage but new pulmonary embolism. Bilateral lower extremity ultrasound demonstrated deep vein thrombosis of unclear chronicity. Vascular Medicine was consulted and due to concerns for bleeding, anticoagulation was held at this time. Patientwas stabilized and transferred again to floor cares. Patient was weaned off continuous bladder irrigation (CBI) with clear urine. After repeat bilateral lower extremity ultrasound demonstrated new DVTs but no propagation of thrombus, Vascular Medicine recommeded starting patient on Eliquis 2.5 mg BID. Urine remained clear yellow and patient was discharged with Molina catheter in place with plans for follow-up with Vascular Medicine and Urology. RNATIONAL MARKETING EXECUTIVE documented in this encounter Plan of Treatment Pending Results Name Type Priority Associated Diagnoses Date/Ti me Prepare Red Blood Blood Bank Routine 04/10/2020 6:34 PM INTERNATIONAL MARKETING EXECUTIVE Cells, 1 Units Transfuse Red Blood Blood Bank Routine 04/10/19 7:53 PM INTERNATIONAL MARKETING EXECUTIVE Cells : , 1 Units Transfuse Red Blood Blood Bank Routine 04/10/19 7:52 PM INTERNATIONAL MARKETING EXECUTIVE Cells : Prepare Red Blood Blood Bank STAT 04/10/2020 6:34 PM INTERNATIONAL MARKETING EXECUTIVE Cells, 1 Units Prepare Red Blood Blood Bank STAT 04/10/2020 6:34 PM INTERNATIONAL MARKETING EXECUTIVE Cells, 2 Units Prepare Red Blood Blood Bank STAT 04/10/2020 6:34 PM INTERNATIONAL MARKETING EXECUTIVE Cells, 2 Units Prepare Platelets Blood Bank STAT 04/11/2020 5:47 PM INTERNATIONAL MARKETING EXECUTIVE Prepare Red Blood Blood Bank STAT 04/11/2020 5:47 PM INTERNATIONAL MARKETING EXECUTIVE Cells Prepare Fresh Frozen Blood Bank STAT 021 5:47 PM INTERNATIONAL MARKETING EXECUTIVE Plasma Prepare Red Blood Blood Bank Routine 04/10/2020 6:34 PM INTERNATIONAL MARKETING EXECUTIVE Cells Scheduled Orders Name Type Priority Associated Diagnoses Order S chedule URO Urethral cath Procedure Routine Urethral False Passage Expected: 04/15/2020 removal & voiding (Approxima te), trial (UCO/VT) Expires: 03/28 Scheduled Referrals Name Type Priority Associated Order Schedule Diagnoses Vascular Medicine - Outpatient Referral Routine Thrombosis Marlene p Expected: Thrombophilia consult Vein Acute Lower (clinic) Extremity Bilateral (Approxi mate), ([facility]) Expires: 04/14/2023 Urology office visit Outpatient Referral Routine Expected: (clinic) 04/29/2020 (Approximate), Expires: 04/15/2023 documented as of this encounter Procedures Procedure Name Priority Date/Time Associated Comments Diagnosis BACTERIAL CULTURE, Routine 04/15/2020 6:38 Result s for AEROBIC + SUSC, URINE AM INTERNATIONAL MARKETING EXECUTIVE this p rocedure are in the results section. CBC WITHOUT Routine 04/15/2020 3:08 Results for DIFFERENTIAL, B AM INTERNATIONAL MARKETING EXECUTIVE this procedu re are in the results section. US LOWER EXTREMITY RAD - Routine 04/14/2020 9:05 Resul ts for VEINS BILATERAL (most inpatients AM INTERNATIONAL MARKETING EXECUTIVE this pro cedure and all are in the outpatients) results section. CBC WITHOUT Routine 04/14/2020 3:04 Results for DIFFERENTIAL, B AM INTERNATIONAL MARKETING EXECUTIVE this procedu re are in the results section. BASIC METABOLIC Routine 04/14/2020 3:04 Results f or PANEL, S/P AM INTERNATIONAL MARKETING EXECUTIVE this procedure are in the results section. CBC WITHOUT Routine 04/13/2020 3:32 Results for DIFFERENTIAL, B AM INTERNATIONAL MARKETING EXECUTIVE this procedu re are in the results section. CALCIUM, IONIZED, S/B Routine 04/13/2020 3:32 Res ults for AM INTERNATIONAL MARKETING EXECUTIVE this procedure are in the results section. BASIC METABOLIC Routine 04/13/2020 3:32 Results f or PANEL, S/P AM INTERNATIONAL MARKETING EXECUTIVE this procedure are in the results section. HEMOGLOBIN, B STAT 04/12/2020 12:47 Results fo r PM INTERNATIONAL MARKETING EXECUTIVE this procedure are in the results section. HEMATOCRIT, B STAT 04/12/2020 12:47 Results fo r PM INTERNATIONAL MARKETING EXECUTIVE this procedure are in the results section. US LOWER EXTREMITY RAD - Routine 04/12/2020 9:24 Resul ts for VEINS BILATERAL (most inpatients AM INTERNATIONAL MARKETING EXECUTIVE this pro cedure and all are in the outpatients) results section. CBC WITHOUT Routine 04/12/2020 4:05 Results for DIFFERENTIAL, B AM INTERNATIONAL MARKETING EXECUTIVE this procedu re are in the results section. CALCIUM, IONIZED, S/B Routine 04/12/2020 4:05 Res ults for AM INTERNATIONAL MARKETING EXECUTIVE this procedure are in the results section. BASIC METABOLIC Routine 04/12/2020 4:04 Results f or PANEL, S/P AM INTERNATIONAL MARKETING EXECUTIVE this procedure are in the results section. CT ABDOMEN PELVIS RAD - Semiurgent 04/11/2020 9:32 Res ults for WITH IV CONTRAST (Fast; most ED PM INTERNATIONAL MARKETING EXECUTIVE this proc edure patients; some are in the inpatients) results section. ACTIVATED PARTIAL STAT 04/11/2020 5:57 Results for THROMBOPLASTIN TIME PM INTERNATIONAL MARKETING EXECUTIVE this pro cedure (APTT), P are in the results section. PROTHROMBIN TIME STAT 04/11/2020 5:57 Results for (PT), P PM INTERNATIONAL MARKETING EXECUTIVE this procedure are in the results section. FIBRINOGEN, P STAT 04/11/2020 5:57 Results for PM INTERNATIONAL MARKETING EXECUTIVE this procedure are in the results section. CBC WITHOUT STAT 04/11/2020 5:57 Results for DIFFERENTIAL, B PM INTERNATIONAL MARKETING EXECUTIVE this procedu re are in the results section. LACTATE, B/P STAT 04/11/2020 5:57 Results for PM INTERNATIONAL MARKETING EXECUTIVE this procedure are in the results section. BASIC METABOLIC STAT 04/11/2020 5:57 Results f or PANEL, S/P PM INTERNATIONAL MARKETING EXECUTIVE this procedure are in the results section. PREPARE PLATELETS STAT 04/11/2020 5:47 PM INTERNATIONAL MARKETING EXECUTIVE PREPARE FRESH FROZEN STAT 04/11/2020 5:47 PLASMA PM INTERNATIONAL MARKETING EXECUTIVE PREPARE RED BLOOD STAT 04/11/2020 5:47 CELLS PM INTERNATIONAL MARKETING EXECUTIVE BLOOD GAS, POCT, B STAT 04/11/2020 5:37 Result s for PM INTERNATIONAL MARKETING EXECUTIVE this procedure are in the results section. VBG & LYTES CG8+, Routine 04/11/2020 5:36 Results for POCT, B PM INTERNATIONAL MARKETING EXECUTIVE this procedure are in the results section. PROTHROMBIN TIME STAT 04/11/2020 5:03 Results for (PT), P PM INTERNATIONAL MARKETING EXECUTIVE this procedure are in the results section. HEMOGLOBIN, B STAT 04/11/2020 5:03 Results for PM INTERNATIONAL MARKETING EXECUTIVE this procedure are in the results section. THROMBOELASTOGRAPH, STAT 04/11/2020 5:02 Resul ts for KAOLIN + HEPARINASE, PM INTERNATIONAL MARKETING EXECUTIVE this pr ocedure B are in the results section. TRANSFUSE RED BLOOD Routine 04/11/2020 5:00 CELLS PM INTERNATIONAL MARKETING EXECUTIVE TRANSFUSE RED BLOOD Routine 04/11/2020 4:34 CELLS PM INTERNATIONAL MARKETING EXECUTIVE HEMOGLOBIN, B Routine 04/11/2020 2:46 Results for PM INTERNATIONAL MARKETING EXECUTIVE this procedure are in the results section. HEMOGLOBIN, B Timed 04/11/2020 8:46 Results for AM INTERNATIONAL MARKETING EXECUTIVE this procedure are in the results section. PROTHROMBIN TIME Timed 04/11/2020 4:45 Results for (PT), P AM INTERNATIONAL MARKETING EXECUTIVE this procedure are in the results section. CBC WITHOUT Timed 04/11/2020 4:45 Results for DIFFERENTIAL, B AM INTERNATIONAL MARKETING EXECUTIVE this procedu re are in the results section. CALCIUM, IONIZED, S/B Timed 04/11/2020 4:45 Res ults for AM INTERNATIONAL MARKETING EXECUTIVE this procedure are in the results section. BASIC METABOLIC Timed 04/11/2020 4:45 Results f or PANEL, S/P AM INTERNATIONAL MARKETING EXECUTIVE this procedure are in the results section. TRANSFUSE RED BLOOD Routine 04/11/2020 12:42 CELLS AM INTERNATIONAL MARKETING EXECUTIVE HEMOGLOBIN, B Timed 04/11/2020 12:10 Results fo r AM INTERNATIONAL MARKETING EXECUTIVE this procedure are in the results section. HEMOGLOBIN, B Timed 04/10/2020 10:54 Results fo r PM INTERNATIONAL MARKETING EXECUTIVE this procedure are in the results section. CBC WITHOUT STAT 04/10/2020 9:21 Results for DIFFERENTIAL, B PM INTERNATIONAL MARKETING EXECUTIVE this procedu re are in the results section. HEMOGLOBIN, B Timed 04/10/2020 8:23 Results for PM INTERNATIONAL MARKETING EXECUTIVE this procedure are in the results section. TRANSFUSE RED BLOOD Routine 04/10/2020 7:52 CELLS PM INTERNATIONAL MARKETING EXECUTIVE PROTHROMBIN TIME STAT 04/10/2020 7:31 Results for (PT), P PM INTERNATIONAL MARKETING EXECUTIVE this procedure are in the results section. FIBRINOGEN, P STAT 04/10/2020 7:31 Results for PM INTERNATIONAL MARKETING EXECUTIVE this procedure are in the results section. ACTIVATED PARTIAL STAT 04/10/2020 6:34 Results for THROMBOPLASTIN TIME PM INTERNATIONAL MARKETING EXECUTIVE this pro cedure (APTT), P are in the results section. PROTHROMBIN TIME STAT 04/10/2020 6:34 Results for (PT), P PM INTERNATIONAL MARKETING EXECUTIVE this procedure are in the results section. CBC WITH STAT 04/10/2020 6:34 Results for DIFFERENTIAL, B PM INTERNATIONAL MARKETING EXECUTIVE this procedu re are in the results section. PREPARE RED BLOOD Routine 04/10/2020 6:34 CELLS PM INTERNATIONAL MARKETING EXECUTIVE PREPARE RED BLOOD STAT 04/10/2020 6:34 CELLS PM INTERNATIONAL MARKETING EXECUTIVE PREPARE RED BLOOD STAT 04/10/2020 6:34 CELLS PM INTERNATIONAL MARKETING EXECUTIVE PREPARE RED BLOOD STAT 04/10/2020 6:34 CELLS PM INTERNATIONAL MARKETING EXECUTIVE PREPARE RED BLOOD Routine 04/10/2020 6:34 CELLS PM INTERNATIONAL MARKETING EXECUTIVE TYPE AND SCREEN Routine 04/10/2020 6:34 Results f or PM INTERNATIONAL MARKETING EXECUTIVE this procedure are in the results section. PHOSPHORUS STAT 04/10/2020 6:34 Results for (INORGANIC), S PM INTERNATIONAL MARKETING EXECUTIVE this procedur e are in the results section. MAGNESIUM, S STAT 04/10/2020 6:34 Results for PM INTERNATIONAL MARKETING EXECUTIVE this procedure are in the results section. LACTATE, B/P STAT 04/10/2020 6:34 Results for PM INTERNATIONAL MARKETING EXECUTIVE this procedure are in the results section. BASIC METABOLIC STAT 04/10/2020 6:34 Results f or PANEL, S/P PM INTERNATIONAL MARKETING EXECUTIVE this procedure are in the results section. documented in this encounter Results US Lower Extremity Veins Bilateral (04/28/2020 8:53 AM INTERNATIONAL MARKETING EXECUTIVE) Anatomical Region Laterality Modality Lower Extremity, Ultrasound RST LOS, Ultrasound ARZ LOS, Roberto ateral Ultrasound Ultrasound FLA LOS Specimen (Source) Anatomical Collection Method Collection Time Re ceived Time Location / / Volume Laterality 04/28/2020 9:04 AM INTERNATIONAL MARKETING EXECUTIVE Impressions 04/28/2020 9:14 AM INTERNATIONAL MARKETING EXECUTIVE Interval improvement in now subacute DVT of the right posterior tibial, soleal and peroneal veins and th e left peroneal vein and subacute SVT of the right small saphenous vein. 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 Narrative 04/28/2020 9:14 AM INTERNATIONAL MARKETING EXECUTIVE EXAM: US LOWER EXTREMITY VEINS BILATERAL Exam [...] post-thrombotic change left small saphenous vein. Nga Reyes M.D. IMG US PROCEDURES Bacterial Culture, Aerobic + Susc, Urine (04/15/2020 6:38 AM INTERNATIONAL MARKETING EXECUTIVE) [facility] [employer] Method Time Signature Urine Culture No growth 04/16/2020 DTL after 1 day 8:07 AM INTERNATIONAL MARKETING EXECUTIVE of incubation. Specimen (Source) Anatomical Collection Method Collection Time Re ceived Time Location / / Volume Laterality Urine (Urine, 04/15/2020 6:38 04/15/2020 7:59 Indwelling AM INTERNATIONAL MARKETING EXECUTIVE AM INTERNATIONAL MARKETING EXECUTIVE Catheter) Comment: Specimen Source Site: Urine Ange Gallardo M.D. LAB MICROBIOLOGY - GENERAL O RDERABLES Performing Organization Address City/State/ZIP Code Phon e Number [facility] - [address] [place], [place] [address] [facility] [place] [address] [facility] [address] [facility] (ABNORMAL) CBC without Differential (04/15/2020 3:08 AM INTERNATIONAL MARKETING EXECUTIVE) [facility] Method Time Signature Hemoglobin 9.5 (L) 13.2 - 04/15/2020 DTL 16.6 g/dL 4:19 AM INTERNATIONAL MARKETING EXECUTIVE Hematocrit 30.2 (L) 38.3 - 04/15/2020 DTL 48.6 % 4:19 AM INTERNATIONAL MARKETING EXECUTIVE Erythrocytes 3.17 (L) 4.35 - 04/15/2020 DTL 5.65 4:19 AM INTERNATIONAL MARKETING EXECUTIVE x10(12)/L MCV 95.3 78.2 - 04/15/2020 DTL 97.9 fL 4:19 AM INTERNATIONAL MARKETING EXECUTIVE RBC Distrib Width 16.2 (H) 11.8 - 04/15/2020 DTL 14.5 % 4:19 AM INTERNATIONAL MARKETING EXECUTIVE Platelet Count 174 135 - 317 04/15/2020 DTL x10(9)/L 4:19 AM INTERNATIONAL MARKETING EXECUTIVE Leukocytes 5.6 3.4 - 9.6 04/15/2020 DTL x10(9)/L 4:19 AM INTERNATIONAL MARKETING EXECUTIVE Specimen Anatomical Collection Method Collection Time Receive d Time (Source) Location / / Volume Laterality Blood (Blood, 04/15/2020 3:08 AM 04/15/19 21 4:08 Venous) INTERNATIONAL MARKETING EXECUTIVE AM INTERNATIONAL MARKETING EXECUTIVE Lobito Jones M.D. LAB BLOOD ADD-ON Performing Organization Address City/State/ZIP Code Phon e Number [facility] - [address] [place], [place] [address] [facility] [place] [address] [facility] [address] US Lower Extremity Veins Bilateral (04/14/2020 9:05 AM INTERNATIONAL MARKETING EXECUTIVE) Anatomical Region Laterality Modality Lower Extremity, Ultrasound RST LOS, Ultrasound ARZ LOS, Roberto ateral Ultrasound Ultrasound FLA LOS Specimen (Source) Anatomical Collection Method Collection Time Re ceived Time Location / / Volume Laterality 04/14/2020 9:06 AM INTERNATIONAL MARKETING EXECUTIVE Impressions 04/14/2020 9:14 AM INTERNATIONAL MARKETING EXECUTIVE Acute thrombus within a right posterior tibial and a left peroneal veins is new since 04/12/2020. Stable th rombus within the right peroneal and soleal veins. Additional new SVT within the right small saphenous vein. Narrative 04/14/2020 9:14 AM INTERNATIONAL MARKETING EXECUTIVE EXAM: US LOWER EXTREMITY VEINS BILATERAL Exam performed with color and spectral D oppler analysis. COMPARISON: Lower extremity venous ultra sound from 04/12/2020. FINDINGS: ?? Right: The acute DVT seen o n the prior exam has progressed with new thrombus in the right posterior tibial v eins. Short segment thrombus within the right soleal and peroneal veins is uncha nged. Additional new superficial venous thrombus within the right small saphenou s vein. Left: New acute thrombus within a left p eroneal vein. Otherwise the left common femoral, upper deep femoral, femoral and popliteal veins are widely patent , without thrombus. The posterior tibial, soleal and gastrocnemius veins were segmentally visualized and are normal wh ere seen. The great saphenous veins bilaterally are patent and negative for thrombus. Procedure Note Callum Park M.D. - 04/14/2020Format ting of this note might be different from the original. EXAM: US LOWER EXTREMITY VEINS BILATERAL Exam performed with color and spectral D oppler analysis. COMPARISON: Lower extremity venous ultra sound from 04/12/2020. FINDINGS: Right: The acute DVT seen on t he prior exam has progressed with new thrombus in the right posterior tibial v eins. Short segment thrombus within the right soleal and peroneal veins is uncha nged. Additional new superficial venous thrombus within the right small saphenou s vein. Left: New acute thrombus within a left p eroneal vein. Otherwise the left common femoral, upper deep femoral, femoral and popliteal veins are widely patent , without thrombus. The posterior tibial, soleal and gastrocnemius veins were segmentally visualized and are normal wh ere seen. The great saphenous veins bilaterally are patent and negative for thrombus. IMPRESSION: Acute thrombus within a right posterior tibial and a left peroneal veins is new since 04/12/2020. Stable th rombus within the right peroneal and soleal veins. Additional new SVT within the right small saphenous vein. Deann Joiner M.D. IMJa[place] US PROCEDURES (ABNORMAL) Basic Metabolic Panel (04/14/2020 3:04 AM INTERNATIONAL MARKETING EXECUTIVE) P athologist Signature Potassium, S 3.8 3.6 - 5.2 04/14/2020 DTL mmol/L 4:03 AM INTERNATIONAL MARKETING EXECUTIVE Sodium, S 143 135 - 145 04/14/2020 DTL mmol/L 4:03 AM INTERNATIONAL MARKETING EXECUTIVE Chloride, S 107 98 - 107 04/14/2020 DTL mmol/L 4:03 AM INTERNATIONAL MARKETING EXECUTIVE Bicarbonate, S 27 22 - 29 04/14/2020 DTL mmol/L 4:03 AM INTERNATIONAL MARKETING EXECUTIVE Anion Gap 9 7 - 15 04/14/2020 DTL 4:03 AM INTERNATIONAL MARKETING EXECUTIVE BUN (Blood Urea 7 (L) 8 - 24 04/14/2020 DTL Nitrogen), S mg/dL 4:03 AM INTERNATIONAL MARKETING EXECUTIVE Creatinine 0.90 0.74 - 04/14/2020 DTL 1.35 mg/dL 4:03 AM INTERNATIONAL MARKETING EXECUTIVE eGFR-Non 83 >=60 04/14/2020 DTL Black/ mL/min/BSA 4:03 AM INTERNATIONAL MARKETING EXECUTIVE [place] Comment: ----ADDITIONAL INFORMATION---- Estimated GFR calculated using the 2009 CKD_EPI creatinine equation. eGFR-Black/ >90 >=60 mL/min/BSA 2020 4:03 AM INTERNATIONAL MARKETING EXECUTIVE DTL Comment: ----ADDITIONAL INFORMATION---- Estimated GFR calculated using the 2009 CKD_EPI creatinine equation. Calcium, Total, S 8.0 (L) 8.8 - 10.2 mg/dL 04/14/2020 4:03 AM INTERNATIONAL MARKETING EXECUTIVE DTL Glucose, S 94 70 - 140 mg/dL 04/14/2020 4:03 AM INTERNATIONAL MARKETING EXECUTIVE D TL Specimen Anatomical Collection Method Collection Time Receive d Time (Source) Location / / Volume Laterality Blood (Blood, 04/14/2020 3:04 AM 04/14/19 3:30 Venous) INTERNATIONAL MARKETING EXECUTIVE AM INTERNATIONAL MARKETING EXECUTIVE Lobito Jones M.D. LAB BLOOD ADD-ON Performing Organization Address City/State/ZIP Code Phon e Number [facility] - [address] [place] [address] [facility] [place] [address] [facility] 200 [facility] (ABNORMAL) CBC without Differential (04/14/2020 3:04 AM INTERNATIONAL MARKETING EXECUTIVE) [facility] gist Method Time Signature Hemoglobin 9.3 (L) 13.2 - 04/14/2020 DTL 16.6 g/dL 3:35 AM INTERNATIONAL MARKETING EXECUTIVE Hematocrit 28.9 (L) 38.3 - 04/14/2020 DTL 48.6 % 3:35 AM INTERNATIONAL MARKETING EXECUTIVE Erythrocytes 3.06 (L) 4.35 - 04/14/2020 DTL 5.65 3:35 AM INTERNATIONAL MARKETING EXECUTIVE x10(12)/L MCV 94.4 78.2 - 04/14/2020 DTL 97.9 fL 3:35 AM INTERNATIONAL MARKETING EXECUTIVE RBC Distrib Width 16.9 (H) 11.8 - 04/14/2020 DTL 14.5 % 3:35 AM INTERNATIONAL MARKETING EXECUTIVE Platelet Count 151 135 - 317 04/14/2020 DTL x10(9)/L 3:35 AM INTERNATIONAL MARKETING EXECUTIVE Leukocytes 6.1 3.4 - 9.6 04/14/2020 DTL x10(9)/L 3:35 AM INTERNATIONAL MARKETING EXECUTIVE Specimen Anatomical Collection Method Collection Time Receive d Time (Source) Location / / Volume Laterality Blood (Blood, 04/14/2020 3:04 AM 04/14/19 3:30 Venous) INTERNATIONAL MARKETING EXECUTIVE AM INTERNATIONAL MARKETING EXECUTIVE Lobito Jones M.D. LAB BLOOD ADD-ON Performing Organization Address City/State/ZIP Code Phon e Number [facility] - [address] [place], [place] [address] [facility] [place] [address] [facility] [address] (ABNORMAL) Basic Metabolic Panel (04/13/2020 3:32 AM INTERNATIONAL MARKETING EXECUTIVE) P athologist Signature Potassium, S 4.2 3.6 - 5.2 04/13/2020 DTL mmol/L 4:21 AM INTERNATIONAL MARKETING EXECUTIVE Sodium, S 144 135 - 145 04/13/2020 DTL mmol/L 4:21 AM INTERNATIONAL MARKETING EXECUTIVE Chloride, S 109 (H) 98 - 107 04/13/2020 DTL mmol/L 4:21 AM INTERNATIONAL MARKETING EXECUTIVE Bicarbonate, S 28 22 - 29 04/13/2020 DTL mmol/L 4:21 AM INTERNATIONAL MARKETING EXECUTIVE Anion Gap 7 7 - 15 04/13/2020 DTL 4:21 AM INTERNATIONAL MARKETING EXECUTIVE BUN (Blood Urea 7 (L) 8 - 24 04/13/2020 DTL Nitrogen), S mg/dL 4:21 AM INTERNATIONAL MARKETING EXECUTIVE Creatinine 0.95 0.74 - 04/13/2020 DTL 1.35 mg/dL 4:21 AM INTERNATIONAL MARKETING EXECUTIVE eGFR-Non 77 >=60 04/13/2020 DTL Black/ mL/min/BSA 4:21 AM INTERNATIONAL MARKETING EXECUTIVE [place] Comment: ----ADDITIONAL INFORMATION---- Estimated GFR calculated using the 2009 CKD_EPI creatinine equation. eGFR-Black/ 90 >=60 mL/min/BSA 2020 4:21 AM INTERNATIONAL MARKETING EXECUTIVE DTL Comment: ----ADDITIONAL INFORMATION---- Estimated GFR calculated using the 2009 CKD_EPI creatinine equation. Calcium, Total, S 8.2 (L) 8.8 - 10.2 mg/dL 04/13/2020 4:21 AM INTERNATIONAL MARKETING EXECUTIVE DTL Glucose, S 83 70 - 140 mg/dL 04/13/2020 4:21 AM INTERNATIONAL MARKETING EXECUTIVE D TL Specimen Anatomical Collection Method Collection Time Receive d Time (Source) Location / / Volume Laterality Blood (Blood, 04/13/2020 3:32 AM 04/13/19 3:56 Venous) INTERNATIONAL MARKETING EXECUTIVE AM INTERNATIONAL MARKETING EXECUTIVE Lobito Jones M.D. LAB BLOOD ADD-ON Performing Organization Address [facility] Phon e Number [facility] - [address] (ABNORMAL) CBC without Differential (04/13/2020 3:32 AM INTERNATIONAL MARKETING EXECUTIVE) Patholo gist Method Time Signature Hemoglobin 9.3 (L) 13.2 - 04/13/2020 DTL 16.6 g/dL 4:03 AM INTERNATIONAL MARKETING EXECUTIVE Hematocrit 29.2 (L) 38.3 - 04/13/2020 DTL 48.6 % 4:03 AM INTERNATIONAL MARKETING EXECUTIVE Erythrocytes 3.13 (L) 4.35 - 04/13/2020 DTL 5.65 4:03 AM INTERNATIONAL MARKETING EXECUTIVE x10(12)/L MCV 93.3 78.2 - 04/13/2020 DTL 97.9 fL 4:03 AM INTERNATIONAL MARKETING EXECUTIVE RBC Distrib Width 17.2 (H) 11.8 - 04/13/2020 DTL 14.5 % 4:03 AM INTERNATIONAL MARKETING EXECUTIVE Platelet Count 141 135 - 317 04/13/2020 DTL x10(9)/L 4:03 AM INTERNATIONAL MARKETING EXECUTIVE Leukocytes 7.0 3.4 - 9.6 04/13/2020 DTL x10(9)/L 4:03 AM INTERNATIONAL MARKETING EXECUTIVE Specimen Anatomical Collection Method Collection Time Receive d Time (Source) Location / / Volume Laterality Blood (Blood, 04/13/2020 3:32 AM 04/13/19 21 3:56 Venous) INTERNATIONAL MARKETING EXECUTIVE AM INTERNATIONAL MARKETING EXECUTIVE Lobito Jones M.D. LAB BLOOD ADD-ON Performing Organization Address [facility] Phon e Number [facility] - [address] [place], [place] [address] [place] [address] Calcium, Ionized (04/13/2020 3:32 AM INTERNATIONAL MARKETING EXECUTIVE) P athologist Signature Calcium, 4.69 4.57 - 5.43 04/13/2020 DTL Ionized, S mg/dL 4:29 AM INTERNATIONAL MARKETING EXECUTIVE Comment: ----ADDITIONAL INFORMATION---- This test has been modified from the man ufacturer's instructions. Its performance characteri stics were determined by [facility] in a manner co nsistent with CLIA requirements. This test has not bee n cleared or approved by the U.S. Food and Drug Admin istration. pH for Ionized Calcium 7.48 7.35 - 7.48 04/13/2020 4:29 AM INTERNATIONAL MARKETING EXECUTIVE DTL Specimen Anatomical Collection Method Collection Time Receive d Time (Source) Location / / Volume Laterality Blood (Blood, 04/13/2020 3:32 AM 04/13/19 21 3:56 Venous) INTERNATIONAL MARKETING EXECUTIVE AM INTERNATIONAL MARKETING EXECUTIVE Lobito Jones M.D. LAB BLOOD NON ADD-ON Performing Organization Address City/[facility] Phon e Number [facility] - [address] (ABNORMAL) Hematocrit (04/12/2020 12:47 PM INTERNATIONAL MARKETING EXECUTIVE) P athologist Signature Hematocrit 28.7 (L) 38.3 - 48.6 04/12/2020 STMA % 12:53 PM INTERNATIONAL MARKETING EXECUTIVE Specimen Anatomical Collection Method Collection Time Receive d Time (Source) Location / / Volume Laterality Blood (Blood, 04/12/2020 12:47 04/12/2020 Venous) PM INTERNATIONAL MARKETING EXECUTIVE 12:50 PM INTERNATIONAL MARKETING EXECUTIVE Azalia Pepe M.D. LAB BLOOD ADD-ON Performing Organization Address City/[facility] Phon e Number [facility] - [address] [place] [address] (ABNORMAL) Hemoglobin (04/12/2020 12:47 PM INTERNATIONAL MARKETING EXECUTIVE) P athologist Signature Hemoglobin 9.5 (L) 13.2 - 16.6 04/12/2020 STMA g/dL 12:53 PM INTERNATIONAL MARKETING EXECUTIVE Specimen Anatomical Collection Method Collection Time Receive d Time (Source) Location / / Volume Laterality Blood (Blood, 04/12/2020 12:47 04/12/2020 Venous) PM INTERNATIONAL MARKETING EXECUTIVE 12:50 PM INTERNATIONAL MARKETING EXECUTIVE Azalia Pepe M.D. LAB BLOOD ADD-ON Performing Organization Address City/[facility]/ZIP [facility] Phon e Number [facility] - [address] [address] [facility] [address] [address] US Lower Extremity Veins Bilateral (04/12/2020 9:24 AM INTERNATIONAL MARKETING EXECUTIVE) Anatomical Region Laterality Modality Lower Extremity, Ultrasound RST LOS, Ultrasound ARZ LOS, Roberto ateral Ultrasound Ultrasound FLA LOS Specimen (Source) Anatomical Collection Method Collection Time Re ceived Time Location / / Volume Laterality 04/12/2020 9:33 AM INTERNATIONAL MARKETING EXECUTIVE Impressions 04/12/2020 9:40 AM INTERNATIONAL MARKETING EXECUTIVE 1. Positive for age-indeterminate DVT in the right soleal and peroneal veins. 2. Negative for DVT in the left lower ex tremity. Narrative 04/12/2020 9:40 AM INTERNATIONAL MARKETING EXECUTIVE EXAM: US LOWER EXTREMITY VEINS BILATERAL Exam performed with color and spectral D oppler analysis. COMPARISON: None. FINDINGS: ?? RIGHT: ??Nonocclusive, mildly expansile thrombus in the soleal and peroneal veins. The common femoral, upper deep fe moral, femoral, and popliteal veins are widely patent, without thrombus. The pos terior tibial and gastrocnemius veins were segmentally visualized and are norm al where seen. The great saphenous vein is patent and negative for thrombus. LEFT: ??The common femoral, upper deep f emoral, femoral, and popliteal veins are widely patent, without thrombus. The pos terior tibial, peroneal, soleal and gastrocnemius veins were segmentally vis ualized and are normal where seen. The great saphenous vein is patent and negat sita for thrombus. Critical findings discussed with Dr. Juan clemons ([id number]) at 04/12/2020 9:33 AM. Procedure Note Judy Ibrahim M.D. - 04/12/2020Forma tting of this note might be different from the original. EXAM: US LOWER EXTREMITY VEINS BILATERAL Exam performed with color and spectral D oppler analysis. COMPARISON: None. FINDINGS: RIGHT: Nonocclusive, mildly expansile th rombus in the soleal and peroneal veins. The common femoral, upper deep fe moral, femoral, and popliteal veins are widely patent, without thrombus. The pos terior tibial and gastrocnemius veins were segmentally visualized and are norm al where seen. The great saphenous vein is patent and negative for thrombus. LEFT: The common femoral, upper deep fem oral, femoral, and popliteal veins are widely patent, without thrombus. The pos terior tibial, peroneal, soleal and gastrocnemius veins were segmentally vis ualized and are normal where seen. The great saphenous vein is patent and negat sita for thrombus. Critical findings discussed with Dr. Juan clemons ([id number]) at 04/12/2020 9:33 AM. IMPRESSION: 1. Positive for age-indeterminate DVT in the right soleal and peroneal veins. 2. Negative for DVT in the left lower ex tremity. Yordy Herrera M.D. IMG US PROCEDURES (ABNORMAL) CBC without Differential (04/12/2020 4:05 AM INTERNATIONAL MARKETING EXECUTIVE) [facility] gist Method Time Signature Hemoglobin 9.8 (L) 13.2 - 04/12/2020 DTL 16.6 g/dL 4:46 AM INTERNATIONAL MARKETING EXECUTIVE Hematocrit 30.2 (L) 38.3 - 04/12/2020 DTL 48.6 % 4:46 AM INTERNATIONAL MARKETING EXECUTIVE Erythrocytes 3.31 (L) 4.35 - 04/12/2020 DTL 5.65 4:46 AM INTERNATIONAL MARKETING EXECUTIVE x10(12)/L MCV 91.2 78.2 - 04/12/2020 DTL 97.9 fL 4:46 AM INTERNATIONAL MARKETING EXECUTIVE RBC Distrib Width 18.1 (H) 11.8 - 04/12/2020 DTL 14.5 % 4:46 AM INTERNATIONAL MARKETING EXECUTIVE Platelet Count 124 (L) 135 - 317 04/12/2020 DTL x10(9)/L 4:46 AM INTERNATIONAL MARKETING EXECUTIVE Leukocytes 9.9 (H) 3.4 - 9.6 04/12/2020 DTL x10(9)/L 4:46 AM INTERNATIONAL MARKETING EXECUTIVE Specimen Anatomical Collection Method Collection Time Receive d Time (Source) Location / / Volume Laterality Blood (Blood, 04/12/2020 4:05 AM 04/12/19 4:37 Venous) INTERNATIONAL MARKETING EXECUTIVE AM INTERNATIONAL MARKETING EXECUTIVE Lobito Jones M.D. LAB BLOOD ADD-ON Performing Organization Address City/State/ZIP Code Phon e Number [facility] - [address] [place], [place] [address] [facility] [place] [address] [facility] [address] Calcium, Ionized (04/12/2020 4:05 AM INTERNATIONAL MARKETING EXECUTIVE) athologist Signature Calcium, 4.69 4.57 - 5.43 04/12/2020 DTL Ionized, S mg/dL 5:02 AM INTERNATIONAL MARKETING EXECUTIVE Comment: ----ADDITIONAL INFORMATION---- This test has been modified from the man ufacturer's instructions. Its performance characteri stics were determined by [facility] in a manner co nsistent with CLIA requirements. This test has not bee n cleared or approved by the U.S. Food and Drug Admin istration. pH for Ionized Calcium 7.46 7.35 - 7.48 04/12/2020 5:02 AM INTERNATIONAL MARKETING EXECUTIVE DTL Specimen Anatomical Collection Method Collection Time Receive d Time (Source) Location / / Volume Laterality Blood (Blood, 04/12/2020 4:05 AM 04/12/19 4:37 Venous) INTERNATIONAL MARKETING EXECUTIVE AM INTERNATIONAL MARKETING EXECUTIVE Lobito Jones M.D. LAB BLOOD NON ADD-ON Performing Organization Address City/State/ZIP Code Phon e Number [facility] - [address] [place], [place] [address] [facility] [place] [address] [facility] [address] (ABNORMAL) Basic Metabolic Panel (04/12/2020 4:04 AM INTERNATIONAL MARKETING EXECUTIVE) athologist Signature Potassium, S 4.2 3.6 - 5.2 04/12/2020 DTL mmol/L 5:08 AM INTERNATIONAL MARKETING EXECUTIVE Sodium, S 138 135 - 145 04/12/2020 DTL mmol/L 5:08 AM INTERNATIONAL MARKETING EXECUTIVE Chloride, S 105 98 - 107 04/12/2020 DTL mmol/L 5:08 AM INTERNATIONAL MARKETING EXECUTIVE Bicarbonate, S 27 22 - 29 04/12/2020 DTL mmol/L 5:08 AM INTERNATIONAL MARKETING EXECUTIVE Anion Gap 6 (L) 7 - 15 04/12/2020 DTL 5:08 AM INTERNATIONAL MARKETING EXECUTIVE BUN (Blood Urea 6 (L) 8 - 24 04/12/2020 DTL Nitrogen), S mg/dL 5:08 AM INTERNATIONAL MARKETING EXECUTIVE Creatinine 0.93 0.74 - 04/12/2020 DTL 1.35 mg/dL 5:08 AM INTERNATIONAL MARKETING EXECUTIVE eGFR-Non 79 >=60 04/12/2020 DTL Black/ mL/min/BSA 5:08 AM INTERNATIONAL MARKETING EXECUTIVE [place] Zealander Comment: ----ADDITIONAL INFORMATION---- Estimated GFR calculated using the 2009 CKD_EPI creatinine equation. eGFR-Black/ >90 >=60 mL/min/BSA 2020 5:08 AM INTERNATIONAL MARKETING EXECUTIVE DTL Comment: ----ADDITIONAL INFORMATION---- Estimated GFR calculated using the 2009 CKD_EPI creatinine equation. Calcium, Total, S 7.9 (L) 8.8 - 10.2 mg/dL 04/12/2020 5:08 AM INTERNATIONAL MARKETING EXECUTIVE DTL Glucose, S 86 70 - 140 mg/dL 04/12/2020 5:08 AM INTERNATIONAL MARKETING EXECUTIVE D TL Specimen Anatomical Collection Method Collection Time Receive d Time (Source) Location / / Volume Laterality Blood (Blood, 04/12/2020 4:04 AM 04/12/19 4:37 Venous) INTERNATIONAL MARKETING EXECUTIVE AM INTERNATIONAL MARKETING EXECUTIVE Lobito Jones M.D. LAB BLOOD ADD-ON Performing Organization Address City/State/ZIP Code Phon e Number [facility] - [address] [place], [place] [address] [facility] [place] [address] [facility] [address] Abdomen Pelvis with IV Contrast (04/11/2020 9:32 PM INTERNATIONAL MARKETING EXECUTIVE) Anatomical Region Laterality Modality Abdomen, Pelvis, Abdominal RST LOS, N/A Comp uted Tomography, Computed Abdominal ARZ LOS, Abdominal FLA LOS Herman ography Specimen (Source) Anatomical Collection Method Collection Time Re ceived Time Location / / Volume Laterality 04/11/2020 9:41 PM INTERNATIONAL MARKETING EXECUTIVE Impressions 04/11/2020 10:07 PM INTERNATIONAL MARKETING EXECUTIVE 1. No evidence of recent or active hemorrhage within the abdomen or pelvis. 2. Bladder wall thickening and adjacent stranding and mild ureterectasis and periureteral stranding of the lower uret ers is nonspecific but can be seen in the setting of cystitis with early ascen ding infection. 3. Acute pulmonary embolism in the left lower lobe. Narrative 04/11/2020 10:07 PM INTERNATIONAL MARKETING EXECUTIVE EXAM: ??CT ABDOMEN PELVIS WITH IV CONTRAST COMPARISON: ??None available. FINDINGS: ??No evidence of recent or act sita hemorrhage within the abdomen or pelvis. Normal appearance of the prostat e on all phases of contrast. Cholelithiasis. Liver, spleen, pancreas, and adrenal glands are unremarkable. Molina catheter within the bladder. Bladd er wall thickening with mild stranding along the bladder. Mild lower ureterecta sis bilaterally with faint periureteral stranding about the mid and lower ureter s. No hydronephrosis. No renal or urinary calculi. Bilateral symmetric nep hrograms. Normal caliber of the small and large bowel without evidence of obst ruction. Mixed calcified and noncalcified atherosclerotic plaque invo lving the abdominal aorta and iliac arteries. The celiac and mesenteric renetta mike are patent. Chronic appearing erosive changes along the lateral aspect of the right iliac crest. Spinal fusion hardware lumbar spine. Advanced degenera tive changes of the lumbar spine with compression of the L3 vertebral body. Acute segmental and subsegmental pulmona ry emboli in the left lower lung. Findings were discussed with Dr. Fritz ([phone]) at 10:06 PM on 04/11/2020.. Procedure Note Raina, Spencer Palmer M.D. - 04/11/2020Format ting of this note might be different from the original. EXAM: CT ABDOMEN PELVIS WITH IV CONTRAST COMPARISON: None available. FINDINGS: No evidence of recent or activ e hemorrhage within the abdomen or pelvis. Normal appearance of the prostat e on all phases of contrast. Cholelithiasis. Liver, spleen, pancreas, and adrenal glands are unremarkable. Molina catheter within the bladder. Bladd er wall thickening with mild stranding along the bladder. Mild lower ureterecta sis bilaterally with faint periureteral stranding about the mid and lower ureter s. No hydronephrosis. No renal or urinary calculi. Bilateral symmetric nep hrograms. Normal caliber of the small and large bowel without evidence of obst ruction. Mixed calcified and noncalcified atherosclerotic plaque invo lving the abdominal aorta and iliac arteries. The celiac and mesenteric renetta mike are patent. Chronic appearing erosive changes along the lateral aspect of the right iliac crest. Spinal fusion hardware lumbar spine. Advanced degenera tive changes of the lumbar spine with compression of the L3 vertebral body. Acute segmental and subsegmental pulmona ry emboli in the left lower lung. Findings were discussed with Dr. Fritz ([phone]) at 10:06 PM on 04/11/2020.. IMPRESSION: 1. No evidence of recent or active hemor rhage within the abdomen or pelvis. 2. Bladder wall thickening and adjacent stranding and mild ureterectasis and periureteral stranding of the lower uret ers is nonspecific but can be seen in the setting of cystitis with early ascen ding infection. 3. Acute pulmonary embolism in the left lower lobe. Braulio Regan M.D., M.P.H. IMG CT PROCEDURES (ABNORMAL) Fibrinogen (04/11/2020 5:57 PM INTERNATIONAL MARKETING EXECUTIVE) athologist Signature Fibrinogen, P 160 (L) 200 - 393 04/11/2020 STMA mg/dL 6:48 PM INTERNATIONAL MARKETING EXECUTIVE Specimen Anatomical Collection Method Collection Time Receive d Time (Source) Location / / Volume Laterality Blood (Blood, 04/11/2020 5:57 PM 04/11/19 6:37 Venous) INTERNATIONAL MARKETING EXECUTIVE PM INTERNATIONAL MARKETING EXECUTIVE Virginia Barahona M.D., M.P.H. LAB BLOOD ADD-ON Performing Organization Address [facility] Phon e Number [facility] - [address] [place] [address] APTT (Activated Partial Thromboplastin Time) (04/11/2020 5:57 PM INTERNATIONAL MARKETING EXECUTIVE) athologist Signature Activated 29 25 - 37 sec 04/11/2020 STMA Partial 6:51 PM INTERNATIONAL MARKETING EXECUTIVE Thrombopl Time, P Specimen Anatomical Collection Method Collection Time Receive d Time (Source) Location / / Volume Laterality Blood (Blood, 04/11/2020 5:57 PM 04/11/19 6:37 Venous) INTERNATIONAL MARKETING EXECUTIVE PM INTERNATIONAL MARKETING EXECUTIVE Virginia Barahona M.D., M.P.H. LAB BLOOD ADD-ON Performing Organization Address City/[facility] Phon e Number [facility] - [id number] [place] [address] [facility] (ABNORMAL) Prothrombin Time (PT) (04/11/2020 5:57 PM INTERNATIONAL MARKETING EXECUTIVE) Patholo gist Method Time Signature Prothrombin 12.7 (H) 9.4 - 12.5 04/11/2020 STMA Time, P sec 6:49 PM INTERNATIONAL MARKETING EXECUTIVE INR 1.2 0.9 - 1.1 04/11/2020 STMA 6:49 PM INTERNATIONAL MARKETING EXECUTIVE Comment: ----ADDITIONAL INFORMATION---- Standard intensity warfarin therapeutic range: 2.0 to 3.0 ?? High intensity warfarin therapeutic rang e: 2.5 to 3.5 Specimen Anatomical Collection Method Collection Time Receive d Time (Source) Location / / Volume Laterality Blood (Blood, 04/11/2020 5:57 PM 04/11/19 6:37 Venous) INTERNATIONAL MARKETING EXECUTIVE PM INTERNATIONAL MARKETING EXECUTIVE Virginia Barahona M.D., M.P.H. LAB BLOOD ADD-ON Performing Organization Address City/[facility] Phon e Number [facility] - [address] [place], [place] [address] [place] [address] Laboratories-[address] Lactate (04/11/2020 5:57 PM INTERNATIONAL MARKETING EXECUTIVE) athologist Signature Lactate, P 2.0 0.5 - 2.2 04/11/2020 STMA mmol/L 6:49 PM INTERNATIONAL MARKETING EXECUTIVE Specimen Anatomical Collection Method Collection Time Receive d Time (Source) Location / / Volume Laterality Blood (Blood, 04/11/2020 5:57 PM 04/11/19 6:37 Venous) INTERNATIONAL MARKETING EXECUTIVE PM INTERNATIONAL MARKETING EXECUTIVE Virginia Barahona M.D., M.P.H. LAB BLOOD NON ADD-ON Performing Organization Address City/[facility] Code Phon e Number [facility] - [address] [place], [place] [address] [place] [address] Laboratories[address] (ABNORMAL) Basic Metabolic Panel (04/11/2020 5:57 PM INTERNATIONAL MARKETING EXECUTIVE) P athologist Signature Potassium, P 4.4 3.6 - 5.2 04/11/2020 STMA mmol/L 6:54 PM INTERNATIONAL MARKETING EXECUTIVE Sodium, P 139 135 - 145 04/11/2020 STMA mmol/L 6:54 PM INTERNATIONAL MARKETING EXECUTIVE Chloride, P 107 98 - 107 04/11/2020 STMA mmol/L 6:54 PM INTERNATIONAL MARKETING EXECUTIVE Bicarbonate, P 26 22 - 29 04/11/2020 STMA mmol/L 6:54 PM INTERNATIONAL MARKETING EXECUTIVE Anion Gap, P 6 (L) 7 - 15 04/11/2020 STMA 6:54 PM INTERNATIONAL MARKETING EXECUTIVE BUN (Blood Urea 8 8 - 24 04/11/2020 STMA Nitrogen), P mg/dL 6:54 PM INTERNATIONAL MARKETING EXECUTIVE Creatinine 0.82 0.74 - 04/11/2020 STMA 1.35 mg/dL 6:54 PM INTERNATIONAL MARKETING EXECUTIVE eGFR-Black/Afric >90 >=60 04/11/2020 STMA an [place]alander mL/min/BSA 6:54 PM INTERNATIONAL MARKETING EXECUTIVE Comment: ----ADDITIONAL INFORMATION---- Estimated GFR calculated using the 2009 CKD_EPI creatinine equation. eGFR Non-Black/ 86 >=60 mL/min/BSA 6:54 PM INTERNATIONAL MARKETING EXECUTIVE STMA Comment: ----ADDITIONAL INFORMATION---- Estimated GFR calculated using the 2009 CKD_EPI creatinine equation. Calcium, Total, P 8.1 (L) 8.8 - 10.2 mg/dL 04/11/2020 6:54 PM INTERNATIONAL MARKETING EXECUTIVE STMA Glucose, P 97 70 - 140 mg/dL 04/11/2020 6:54 PM INTERNATIONAL MARKETING EXECUTIVE S TMA Specimen Anatomical Collection Method Collection Time Receive d Time (Source) Location / / Volume Laterality Blood (Blood, 04/11/2020 5:57 PM 04/11/19 21 6:37 Venous) INTERNATIONAL MARKETING EXECUTIVE PM INTERNATIONAL MARKETING EXECUTIVE Virginia Barahona M.D., M.P.H. LAB BLOOD ADD-ON Performing Organization Address City/State/ZIP Code Phon e Number [facility] - [address] [place], [place] [address] [place] [address] [facility] [address] [facility] (ABNORMAL) CBC without Differential (04/11/2020 5:57 PM INTERNATIONAL MARKETING EXECUTIVE) [facility] Method Time Signature Hemoglobin 10.3 (L) 13.2 - 04/11/2020 STMA 16.6 g/dL 6:42 PM INTERNATIONAL MARKETING EXECUTIVE Hematocrit 31.4 (L) 38.3 - 04/11/2020 STMA 48.6 % 6:42 PM INTERNATIONAL MARKETING EXECUTIVE Erythrocytes 3.42 (L) 4.35 - 04/11/2020 STMA 5.65 6:42 PM INTERNATIONAL MARKETING EXECUTIVE x10(12)/L MCV 91.8 78.2 - 04/11/2020 STMA 97.9 fL 6:42 PM INTERNATIONAL MARKETING EXECUTIVE RBC Distrib Width 17.7 (H) 11.8 - 04/11/2020 STMA 14.5 % 6:42 PM INTERNATIONAL MARKETING EXECUTIVE Platelet Count 119 (L) 135 - 317 04/11/2020 STMA x10(9)/L 6:42 PM INTERNATIONAL MARKETING EXECUTIVE Leukocytes 11.8 (H) 3.4 - 9.6 04/11/2020 STMA x10(9)/L 6:42 PM INTERNATIONAL MARKETING EXECUTIVE Specimen Anatomical Collection Method Collection Time Receive d Time (Source) Location / / Volume Laterality Blood (Blood, 04/11/2020 5:57 PM 04/11/19 6:37 Venous) INTERNATIONAL MARKETING EXECUTIVE PM INTERNATIONAL MARKETING EXECUTIVE Virginia Barahona M.D., M.P.H. LAB BLOOD ADD-ON Performing Organization Address [facility] Phon e Number [facility] - [address] [place], [place] [address] [facility] [place] [address] [address] Blood Gas and Lytes, POCT (04/11/2020 5:37 PM INTERNATIONAL MARKETING EXECUTIVE) Analysis Performed At Patho logist Time Signature ABG and Lytes, Collected DEFAULT 04/11/2020 SMLX POCT, B 5:37 PM INTERNATIONAL MARKETING EXECUTIVE Specimen Anatomical Collection Method Collection Time Receive d Time (Source) Location / / Volume Laterality Blood (Other, 04/11/2020 5:37 PM 04/11/19 5:37 Specify in INTERNATIONAL MARKETING EXECUTIVE PM INTERNATIONAL MARKETING EXECUTIVE Comments) Virginia Barahona M.D., M.P.H. LAB POCT ORDERABLES - YAW CE Performing Organization Address [facility] Phon e Number [facility] - [address] [place], [place] [address] [facility] [place] [address] Laboratories-[address] (ABNORMAL) Venous Blood Gas and Electrolytes CG8+, POCT (04/11/2020 5:36 PM INTERNATIONAL MARKETING EXECUTIVE) P athologist Signature Sample Site, Venline 04/11/2020 PCSM POCT 6:04 PM INTERNATIONAL MARKETING EXECUTIVE Comment: ----ADDITIONAL INFORMATION---- Performed at the Point of Care pH, Venous, POCT, B 7.39 7.32 - 7.43 04/11/2020 6:04 PM INTERNATIONAL MARKETING EXECUTIVE PCSM Comment: ----ADDITIONAL INFORMATION---- Performed at the Point of Care pCO2, Venous, POCT, B 46 41 - 51 mm Hg 04/11/2020 6:0 4 PM INTERNATIONAL MARKETING EXECUTIVE PCSM Comment: ----ADDITIONAL INFORMATION---- Performed at the Point of Care pO2, Venous, POCT, B 23 Not Applicable mm Hg 04/11/19 21 6:04 PM INTERNATIONAL MARKETING EXECUTIVE PCSM Comment: ----ADDITIONAL INFORMATION---- Performed at the Point of Care Base Excess, Venous, POCT, B 3 Not Applicable mmol/L 04/11/2020 6:04 PM INTERNATIONAL MARKETING EXECUTIVE PCSM Comment: ----ADDITIONAL INFORMATION---- Performed at the Point of Care HCO3, Venous, POCT, B 28 Not Applicable mmol/L 2020 6:04 PM INTERNATIONAL MARKETING EXECUTIVE PCSM Comment: ----ADDITIONAL INFORMATION---- Performed at the Point of Care Sodium, POCT, B 139 135 - 145 mmol/L 04/11/2020 6:04 P M INTERNATIONAL MARKETING EXECUTIVE PCSM Comment: ----ADDITIONAL INFORMATION---- Performed at the Point of Care Potassium, POCT, B 4.7 3.6 - 5.2 mmol/L 04/11/2020 6:0 4 PM INTERNATIONAL MARKETING EXECUTIVE PCSM Comment: ----ADDITIONAL INFORMATION---- Performed at the Point of Care Calcium, Ionized, POCT, B 4.80 4.65 - 5.30 mg/dL 2020 6:04 PM INTERNATIONAL MARKETING EXECUTIVE PCSM Comment: ----ADDITIONAL INFORMATION---- Performed at the Point of Care Glucose, POCT, B 103 70 - 140 mg/dL 04/11/2020 6:04 PM INTERNATIONAL MARKETING EXECUTIVE PCSM Comment: ----ADDITIONAL INFORMATION---- Performed at the Point of Care Hematocrit, POCT, B 28.0 (L) 38.3 - 48.6 % 04/11/2020 6:04 PM INTERNATIONAL MARKETING EXECUTIVE PCSM Comment: ----ADDITIONAL INFORMATION---- Performed at the Point of Care Specimen Anatomical Collection Method Collection Time Receive d Time (Source) Location / / Volume Laterality Blood 04/11/2020 5:36 PM 6:04 INTERNATIONAL MARKETING EXECUTIVE PM INTERNATIONAL MARKETING EXECUTIVE Unknown Provider LAB POCT ORDERABLES - DEVICE Performing Organization Address City/State/ZIP Code Phon e Number POC RST [facility] INPATIENT [address] [place], [place] [address] LABS PCSM [facility] [place] [address] [place] POC [address] [place] [address] Transfuse Red Blood Cells : (04/11/2020 5:29 PM INTERNATIONAL MARKETING EXECUTIVE) Nga Reyes M.D. BLOOD TRANSFUSION ORDERABLES Transfuse Red Blood Cells : , 2 Units (04/11/2020 5:29 PM INTERNATIONAL MARKETING EXECUTIVE) Nga Reyes M.D. BLOOD TRANSFUSION ORDERABLES Transfuse Red Blood Cells : (04/11/2020 5:23 PM INTERNATIONAL MARKETING EXECUTIVE) Nga Reyes M.D. BLOOD TRANSFUSION ORDERABLES (ABNORMAL) Prothrombin Time (PT) (04/11/2020 5:03 PM INTERNATIONAL MARKETING EXECUTIVE) Patholo gist Method Time Signature Prothrombin 13.8 (H) 9.4 - 12.5 04/11/2020 STMA Time, P sec 5:24 PM INTERNATIONAL MARKETING EXECUTIVE INR 1.3 0.9 - 1.1 04/11/2020 STMA 5:24 PM INTERNATIONAL MARKETING EXECUTIVE Comment: ----ADDITIONAL INFORMATION---- Standard intensity warfarin therapeutic range: 2.0 to 3.0 ?? High intensity warfarin therapeutic rang e: 2.5 to 3.5 Specimen Anatomical Collection Method Collection Time Receive d Time (Source) Location / / Volume Laterality Blood (Blood, 04/11/2020 5:03 PM 04/11/19 5:17 Venous) INTERNATIONAL MARKETING EXECUTIVE PM INTERNATIONAL MARKETING EXECUTIVE Nga Reyes M.D. LAB BLOOD ADD-ON Performing Organization Address City/State/ZIP Code Phon e Number [facility] - [address] [place], [place] [address] [place] [address] [facility] [address] [facility] (ABNORMAL) Hemoglobin (04/11/2020 5:03 PM INTERNATIONAL MARKETING EXECUTIVE) P athologist Signature Hemoglobin 8.7 (L) 13.2 - 16.6 04/11/2020 STMA g/dL 5:19 PM INTERNATIONAL MARKETING EXECUTIVE Specimen Anatomical Collection Method Collection Time Receive d Time (Source) Location / / Volume Laterality Blood (Blood, 04/11/2020 5:03 PM 04/11/19 5:17 Venous) INTERNATIONAL MARKETING EXECUTIVE PM INTERNATIONAL MARKETING EXECUTIVE Nga Reyes M.D. LAB BLOOD ADD-ON Performing Organization Address City/[facility] Phon e Number [facility] - [address] Thromboelastograph, Kaolin + Heparinase (04/11/2020 5:02 PM INTERNATIONAL MARKETING EXECUTIVE) athologist Signature R-Heparinase, 3.8 1.9 - 6.5 04/11/2020 [facility] 6:51 PM INTERNATIONAL MARKETING EXECUTIVE K-Heparinase, 1.9 1.0 - 1.9 04/11/2020 [facility] TEG min 6:51 PM INTERNATIONAL MARKETING EXECUTIVE Angle-Heparina 64.2 63.5 - 75.1 04/11/2020 [facility] se, TEG degrees 6:51 PM INTERNATIONAL MARKETING EXECUTIVE MA-Heparinase, 58.7 57.7 - 69.3 04/11/2020 [facility] TEG mm 6:51 PM INTERNATIONAL MARKETING EXECUTIVE Lx49-[id number] 4.6 0.0 - 4.7 % 04/11/2020 [facility] e, TEG 6:51 PM INTERNATIONAL MARKETING EXECUTIVE Fy04-[id number] 10.9 0.0 - 15.0 % 04/11/2020 [facility] e, TEG 6:51 PM INTERNATIONAL MARKETING EXECUTIVE Specimen Anatomical Collection Method Collection Time Receive d Time (Source) Location / / Volume Laterality Blood (Blood, 04/11/2020 5:02 PM 04/11/19 21 5:10 Venous) INTERNATIONAL MARKETING EXECUTIVE PM INTERNATIONAL MARKETING EXECUTIVE Nga Reyes M.D. LAB BLOOD NON ADD-ON Performing Organization Address City/State/[facility] Code Phon e Number [facility] - [address] [place], [place] [address] [facility] [place] [address] Laboratories-[address] (ABNORMAL) Hemoglobin (04/11/2020 2:46 PM INTERNATIONAL MARKETING EXECUTIVE) athologist Signature Hemoglobin 4.7 (CL) 13.2 - 16.6 04/11/2020 DTL g/dL 4:10 PM INTERNATIONAL MARKETING EXECUTIVE Comment: [id number] Specimen Anatomical Collection Method Collection Time Receive d Time (Source) Location / / Volume Laterality Blood (Blood, 04/11/2020 2:46 PM 04/11/19 3:04 Venous) INTERNATIONAL MARKETING EXECUTIVE PM INTERNATIONAL MARKETING EXECUTIVE Nga Reyes M.D. LAB BLOOD ADD-ON Performing Organization Address City/State/ZIP Code Phon e Number [facility] - [address] (ABNORMAL) Hemoglobin (04/11/2020 8:46 AM INTERNATIONAL MARKETING EXECUTIVE) P athologist Signature Hemoglobin 8.3 (L) 13.2 - 16.6 04/11/2020 STMA g/dL 8:51 AM INTERNATIONAL MARKETING EXECUTIVE Specimen Anatomical Collection Method Collection Time Receive d Time (Source) Location / / Volume Laterality Blood (Blood, 04/11/2020 8:46 AM 04/11/19 8:49 Venous) INTERNATIONAL MARKETING EXECUTIVE AM INTERNATIONAL MARKETING EXECUTIVE Dayami David, B.Ch., B.A.O. LAB BLOOD ADD-ON Performing Organization Address City/[facility] Code Phon e Number [facility] - [address] [place] [address] [facility] (ABNORMAL) Prothrombin Time (PT) (04/11/2020 4:45 AM INTERNATIONAL MARKETING EXECUTIVE) Patholo gist Method Time Signature Prothrombin 14.2 (H) 9.4 - 12.5 04/11/2020 DTL Time, P sec 5:54 AM INTERNATIONAL MARKETING EXECUTIVE INR 1.3 0.9 - 1.1 04/11/2020 DTL 5:54 AM INTERNATIONAL MARKETING EXECUTIVE Comment: ----ADDITIONAL INFORMATION---- Standard intensity warfarin therapeutic range: 2.0 to 3.0 ?? High intensity warfarin therapeutic rang e: 2.5 to 3.5 Specimen Anatomical Collection Method Collection Time Receive d Time (Source) Location / / Volume Laterality Blood (Blood, 04/11/2020 4:45 AM 04/11/19 5:22 Venous) INTERNATIONAL MARKETING EXECUTIVE AM INTERNATIONAL MARKETING EXECUTIVE Lobito Jones M.D. LAB BLOOD ADD-ON Performing Organization Address City/[facility]/ZIP Code Phon e Number [facility] - [address] [place] [address] [facility] [place] [address] (ABNORMAL) Basic Metabolic Panel (04/11/2020 4:45 AM INTERNATIONAL MARKETING EXECUTIVE) P athologist Signature Potassium, S 4.7 3.6 - 5.2 04/11/2020 DTL mmol/L 5:46 AM INTERNATIONAL MARKETING EXECUTIVE Sodium, S 139 135 - 145 04/11/2020 DTL mmol/L 5:46 AM INTERNATIONAL MARKETING EXECUTIVE Chloride, S 107 98 - 107 04/11/2020 DTL mmol/L 5:46 AM INTERNATIONAL MARKETING EXECUTIVE Bicarbonate, S 24 22 - 29 04/11/2020 DTL mmol/L 5:46 AM INTERNATIONAL MARKETING EXECUTIVE Anion Gap 8 7 - 15 04/11/2020 DTL 5:46 AM INTERNATIONAL MARKETING EXECUTIVE BUN (Blood Urea 9 8 - 24 04/11/2020 DTL Nitrogen), S mg/dL 5:46 AM INTERNATIONAL MARKETING EXECUTIVE Creatinine 0.87 0.74 - 04/11/2020 DTL 1.35 mg/dL 5:46 AM INTERNATIONAL MARKETING EXECUTIVE eGFR-Non 84 >=60 04/11/2020 DTL Black/ mL/min/BSA 5:46 AM INTERNATIONAL MARKETING EXECUTIVE [place] Comment: ----ADDITIONAL INFORMATION---- Estimated GFR calculated using the 2009 CKD_EPI creatinine equation. eGFR-Black/ >90 >=60 mL/min/BSA 2020 5:46 AM INTERNATIONAL MARKETING EXECUTIVE DTL Comment: ----ADDITIONAL INFORMATION---- Estimated GFR calculated using the 2009 CKD_EPI creatinine equation. Calcium, Total, S 7.6 (L) 8.8 - 10.2 mg/dL 04/11/2020 5:46 AM INTERNATIONAL MARKETING EXECUTIVE DTL Glucose, S 111 70 - 140 mg/dL 04/11/2020 5:46 AM INTERNATIONAL MARKETING EXECUTIVE D TL Specimen Anatomical Collection Method Collection Time Receive d Time (Source) Location / / Volume Laterality Blood (Blood, 04/11/2020 4:45 AM 04/11/19 5:21 Venous) INTERNATIONAL MARKETING EXECUTIVE AM INTERNATIONAL MARKETING EXECUTIVE Lobito Jones M.D. LAB BLOOD ADD-ON Performing Organization Address City/State/ZIP Code Phon e Number [facility] - [address] [place], [place] [address] [facility] [place] [address] [facility] [address] (ABNORMAL) CBC without Differential (04/11/2020 4:45 AM INTERNATIONAL MARKETING EXECUTIVE) Patholo gist Method Time Signature Hemoglobin 9.0 (L) 13.2 - 04/11/2020 DTL 16.6 g/dL 5:30 AM INTERNATIONAL MARKETING EXECUTIVE Hematocrit 26.7 (L) 38.3 - 04/11/2020 DTL 48.6 % 5:30 AM INTERNATIONAL MARKETING EXECUTIVE Erythrocytes 2.85 (L) 4.35 - 04/11/2020 DTL 5.65 5:30 AM INTERNATIONAL MARKETING EXECUTIVE x10(12)/L MCV 93.7 78.2 - 04/11/2020 DTL 97.9 fL 5:30 AM INTERNATIONAL MARKETING EXECUTIVE RBC Distrib Width 16.4 (H) 11.8 - 04/11/2020 DTL 14.5 % 5:30 AM INTERNATIONAL MARKETING EXECUTIVE Platelet Count 119 (L) 135 - 317 04/11/2020 DTL x10(9)/L 5:30 AM INTERNATIONAL MARKETING EXECUTIVE Leukocytes 10.7 (H) 3.4 - 9.6 04/11/2020 DTL x10(9)/L 5:30 AM INTERNATIONAL MARKETING EXECUTIVE Specimen Anatomical Collection Method Collection Time Receive d Time (Source) Location / / Volume Laterality Blood (Blood, 04/11/2020 4:45 AM 04/11/19 5:22 Venous) INTERNATIONAL MARKETING EXECUTIVE AM INTERNATIONAL MARKETING EXECUTIVE Lobito Jones M.D. LAB BLOOD ADD-ON Performing Organization Address City/State/ZIP Code Phon e Number [facility] - [address] [place], [place] [address] [facility] [place] [address] [facility] [address] Calcium, Ionized (04/11/2020 4:45 AM INTERNATIONAL MARKETING EXECUTIVE) P athologist Signature Calcium, 4.57 4.57 - 5.43 04/11/2020 DTL Ionized, S mg/dL 5:41 AM INTERNATIONAL MARKETING EXECUTIVE Comment: ----ADDITIONAL INFORMATION---- This test has been modified from the man ufactterer's instructions. Its performance characteri stics were determined by [facility] in a manner co nsistent with CLIA requirements. This test has not bee n cleared or approved by the U.S. Food and Drug Admin istration. pH for Ionized Calcium 7.39 7.35 - 7.48 04/11/2020 5:41 AM INTERNATIONAL MARKETING EXECUTIVE DTL Specimen Anatomical Collection Method Collection Time Receive d Time (Source) Location / / Volume Laterality Blood (Blood, 04/11/2020 4:45 AM 04/11/19 5:21 Venous) INTERNATIONAL MARKETING EXECUTIVE AM INTERNATIONAL MARKETING EXECUTIVE Lobito Jones M.D. LAB BLOOD NON ADD-ON Performing Organization Address City/[facility]/ZIP [facility] Phon e Number [facility] - [address] [place], [place] [address] [facility] [place] [address] Transfuse Red Blood Cells : (04/11/2020 2:48 AM INTERNATIONAL MARKETING EXECUTIVE) Dayami David, Cathy.Ch., B.A.O. BLOOD TRANSFUSION ORDERABLES Transfuse Red Blood Cells : , 1 Units (04/11/2020 2:48 AM INTERNATIONAL MARKETING EXECUTIVE) Dayami David, Angelina., B.A.O. BLOOD TRANSFUSION ORDERABLES (ABNORMAL) Hemoglobin (04/11/2020 12:10 AM INTERNATIONAL MARKETING EXECUTIVE) P athologist Signature Hemoglobin 8.8 (L) 13.2 - 16.6 04/11/2020 STMA g/dL 12:16 AM INTERNATIONAL MARKETING EXECUTIVE Specimen Anatomical Collection Method Collection Time Receive d Time (Source) Location / / Volume Laterality Blood (Blood, 04/11/2020 12:10 04/11/2020 Venous) AM INTERNATIONAL MARKETING EXECUTIVE 12:13 AM INTERNATIONAL MARKETING EXECUTIVE Lobito Jones M.D. LAB BLOOD ADD-ON Performing Organization Address City/State/[facility] Code Phon e Number [facility] - [address] [place], [place] [address] [facility] [place] [address] [facility] [address] [facility] (ABNORMAL) Hemoglobin (04/10/2020 10:54 PM INTERNATIONAL MARKETING EXECUTIVE) P athologist Signature Hemoglobin 8.7 (L) 13.2 - 16.6 04/10/2020 ST[facility] g/dL 11:03 PM INTERNATIONAL MARKETING EXECUTIVE Specimen Anatomical Collection Method Collection Time Receive d Time (Source) Location / / Volume Laterality Blood (Blood, 04/10/2020 10:54 04/10/2020 Venous) PM INTERNATIONAL MARKETING EXECUTIVE 11:00 PM INTERNATIONAL MARKETING EXECUTIVE Lobito Jones M.D. LAB BLOOD ADD-ON Performing Organization Address City/[facility] Phon e Number [facility] - 200 [place], [place] [address] [place] [address] (ABNORMAL) CBC without Differential (04/10/2020 9:21 PM INTERNATIONAL MARKETING EXECUTIVE) Patholo gist Method Time Signature Hemoglobin 10.0 (L) 13.2 - 04/10/2020 STMA 16.6 g/dL 9:30 PM INTERNATIONAL MARKETING EXECUTIVE Hematocrit 30.3 (L) 38.3 - 04/10/2020 [facility]MA 48.6 % 9:30 PM INTERNATIONAL MARKETING EXECUTIVE Erythrocytes 3.16 (L) 4.35 - 04/10/2020 [facility]MA 5.65 9:30 PM INTERNATIONAL MARKETING EXECUTIVE x10(12)/L MCV 95.9 78.2 - 04/10/2020 STMA 97.9 fL 9:30 PM INTERNATIONAL MARKETING EXECUTIVE RBC Distrib Width 15.3 (H) 11.8 - 04/10/2020 STMA 14.5 % 9:30 PM INTERNATIONAL MARKETING EXECUTIVE Platelet Count 144 135 - 317 04/10/2020 STMA x10(9)/L 9:30 PM INTERNATIONAL MARKETING EXECUTIVE Leukocytes 13.0 (H) 3.4 - 9.6 04/10/2020 STMA x10(9)/L 9:30 PM INTERNATIONAL MARKETING EXECUTIVE Specimen Anatomical Collection Method Collection Time Receive d Time (Source) Location / / Volume Laterality Blood (Blood, 04/10/2020 9:21 PM 04/10/19 9:28 Venous) INTERNATIONAL MARKETING EXECUTIVE PM INTERNATIONAL MARKETING EXECUTIVE Lobito Jones M.D. LAB BLOOD ADD-ON Performing Organization Address City/State/[facility] Code Phon e Number [facility] - 200 [place], [place] [address] [facility] [place] [address] (ABNORMAL) Hemoglobin (04/10/2020 8:23 PM INTERNATIONAL MARKETING EXECUTIVE) P athologist Signature Hemoglobin 10.2 (L) 13.2 - 16.6 04/10/2020 STMA g/dL 8:30 PM INTERNATIONAL MARKETING EXECUTIVE Specimen Anatomical Collection Method Collection Time Receive d Time (Source) Location / / Volume Laterality Blood (Blood, 04/10/2020 8:23 PM 04/10/19 8:27 Venous) INTERNATIONAL MARKETING EXECUTIVE PM INTERNATIONAL MARKETING EXECUTIVE Lobito Jones M.D. LAB BLOOD ADD-ON Performing Organization Address City/[facility]/ZIP Code Phon e Number [facility] - [address] [place], [place] [address] [place] [address] [facility] [address] [facility] (ABNORMAL) Fibrinogen (04/10/2020 7:31 PM INTERNATIONAL MARKETING EXECUTIVE) P athologist Signature Fibrinogen, P 175 (L) 200 - 393 04/10/2020 STMA mg/dL 7:49 PM INTERNATIONAL MARKETING EXECUTIVE Specimen Anatomical Collection Method Collection Time Receive d Time (Source) Location / / Volume Laterality Blood (Blood, 04/10/2020 7:31 PM 04/10/19 7:34 Venous) INTERNATIONAL MARKETING EXECUTIVE PM INTERNATIONAL MARKETING EXECUTIVE Lobito Jones M.D. LAB BLOOD ADD-ON Performing Organization Address [facility] Phon e Number [facility] - [address] [place], [place] [address] [place] [address] [facility] [address] (ABNORMAL) Prothrombin Time (PT) (04/10/2020 7:31 PM INTERNATIONAL MARKETING EXECUTIVE) Patholo gist Method Time Signature Prothrombin 13.2 (H) 9.4 - 12.5 04/10/2020 STMA Time, P sec 7:49 PM INTERNATIONAL MARKETING EXECUTIVE INR 1.2 0.9 - 1.1 04/10/2020 STMA 7:49 PM INTERNATIONAL MARKETING EXECUTIVE Comment: ----ADDITIONAL INFORMATION---- Standard intensity warfarin therapeutic range: 2.0 to 3.0 ?? High intensity warfarin therapeutic rang e: 2.5 to 3.5 Specimen Anatomical Collection Method Collection Time Receive d Time (Source) Location / / Volume Laterality Blood (Blood, 04/10/2020 7:31 PM 04/10/19 7:34 Venous) INTERNATIONAL MARKETING EXECUTIVE PM INTERNATIONAL MARKETING EXECUTIVE Lobito Jones M.D. LAB BLOOD ADD-ON Performing Organization Address City/[facility]/ZIP Code Phon e Number [facility] - [address] [place], [place] [address] [place] [address] [facility] [address] Magnesium (04/10/2020 6:34 PM INTERNATIONAL MARKETING EXECUTIVE) athologist Signature Magnesium, S 1.9 1.7 - 2.3 04/10/2020 DTL mg/dL 7:16 PM INTERNATIONAL MARKETING EXECUTIVE Specimen Anatomical Collection Method Collection Time Receive d Time (Source) Location / / Volume Laterality Blood (Blood, 04/10/2020 6:34 PM 04/10/19 6:52 Venous) INTERNATIONAL MARKETING EXECUTIVE PM INTERNATIONAL MARKETING EXECUTIVE Lobito Jones M.D. LAB BLOOD ADD-ON Performing Organization Address City/[facility] Phon e Number [facility] - [address] Phosphorus Inorganic (04/10/2020 6:34 PM INTERNATIONAL MARKETING EXECUTIVE) athologist Signature Phosphorus 2.9 2.5 - 4.5 04/10/2020 DTL (Inorganic), S mg/dL 7:16 PM INTERNATIONAL MARKETING EXECUTIVE Specimen Anatomical Collection Method Collection Time Receive d Time (Source) Location / / Volume Laterality Blood (Blood, 04/10/2020 6:34 PM 04/10/19 6:52 Venous) INTERNATIONAL MARKETING EXECUTIVE PM INTERNATIONAL MARKETING EXECUTIVE Lobito Jones M.D. LAB BLOOD ADD-ON Performing Organization Address City/[facility] Phon e Number [facility] - [address] [place], [place] [address] [place] [id number] [place] [address] Type and Screen (with reflex Antibody ID) (04/10/2020 6:34 PM INTERNATIONAL MARKETING EXECUTIVE) [facility] Method Time Signature ABORh O Neg Not 04/10/2020 STRM applicable 7:02 PM INTERNATIONAL MARKETING EXECUTIVE Antibody Negative Negative 04/10/2020 STRM Screen 7:18 PM INTERNATIONAL MARKETING EXECUTIVE Type & Screen 04/13/2020 04/10/2020 STRM Expiration 23:59 7:02 PM INTERNATIONAL MARKETING EXECUTIVE Testing Archie DEFAULT 04/10/2020 STRM Location 6:40 PM INTERNATIONAL MARKETING EXECUTIVE Specimen Anatomical Collection Method Collection Time Receive d Time (Source) Location / / Volume Laterality Blood (Blood, 04/10/2020 6:34 PM 04/10/19 6:40 Venous) INTERNATIONAL MARKETING EXECUTIVE PM INTERNATIONAL MARKETING EXECUTIVE Lobito Jones M.D. LAB BLOOD BANK TEST ORDERABL ES Performing Organization Address City/[facility]/ZIP Code Phon e Number [facility] - [address] [place], [place] [address] [place] [place] [address] [facility] [address] [facility] (ABNORMAL) Prothrombin Time (PT) (04/10/2020 6:34 PM INTERNATIONAL MARKETING EXECUTIVE) Patholo gist Method Time Signature Prothrombin 13.1 (H) 9.4 - 12.5 04/10/2020 [facility]MA Time, P sec 6:45 PM INTERNATIONAL MARKETING EXECUTIVE INR 1.2 0.9 - 1.1 04/10/2020 STMA 6:45 PM INTERNATIONAL MARKETING EXECUTIVE Comment: ----ADDITIONAL INFORMATION---- Standard intensity warfarin therapeutic range: 2.0 to 3.0 ?? High intensity warfarin therapeutic rang e: 2.5 to 3.5 Specimen Anatomical Collection Method Collection Time Receive d Time (Source) Location / / Volume Laterality Blood (Blood, 04/10/2020 6:34 PM 04/10/19 6:38 Venous) INTERNATIONAL MARKETING EXECUTIVE PM INTERNATIONAL MARKETING EXECUTIVE Lobito Jones M.D. LAB BLOOD ADD-ON Performing Organization Address City/State/ZIP Code Phon e Number [facility] - [address] [address] [place] [address] [facility] APTT (Activated Partial Thromboplastin Time) (04/10/2020 6:34 PM INTERNATIONAL MARKETING EXECUTIVE) P athologist Signature Activated 28 25 - 37 sec 04/10/2020 STMA Partial 6:47 PM INTERNATIONAL MARKETING EXECUTIVE Thrombopl Time, P Specimen Anatomical Collection Method Collection Time Receive d Time (Source) Location / / Volume Laterality Blood (Blood, 04/10/2020 6:34 PM 04/10/19 6:38 Venous) INTERNATIONAL MARKETING EXECUTIVE PM INTERNATIONAL MARKETING EXECUTIVE Lobito Jones M.D. LAB BLOOD ADD-ON Performing Organization Address City/[facility]/ZIP Code Phon e Number [facility] - [address] [place], [place] [address] [place] [address] [place] [address] [facility] (ABNORMAL) CBC with Differential, Blood (04/10/2020 6:34 PM INTERNATIONAL MARKETING EXECUTIVE) [facility] Method Time Signature Hemoglobin 11.6 (L) 13.2 - 04/10/2020 STMA 16.6 g/dL 6:43 PM INTERNATIONAL MARKETING EXECUTIVE Hematocrit 34.8 (L) 38.3 - 04/10/2020 STMA 48.6 % 6:43 PM INTERNATIONAL MARKETING EXECUTIVE Erythrocytes 3.58 (L) 4.35 - 04/10/2020 STMA 5.65 6:43 PM INTERNATIONAL MARKETING EXECUTIVE x10(12)/L MCV 97.2 78.2 - 04/10/2020 STMA 97.9 fL 6:43 PM INTERNATIONAL MARKETING EXECUTIVE RBC Distrib Width 15.0 (H) 11.8 - 04/10/2020 STMA 14.5 % 6:43 PM INTERNATIONAL MARKETING EXECUTIVE Platelet Count 167 135 - 317 04/10/2020 STMA x10(9)/L 6:43 PM INTERNATIONAL MARKETING EXECUTIVE Leukocytes 12.3 (H) 3.4 - 9.6 04/10/2020 STMA x10(9)/L 6:43 PM INTERNATIONAL MARKETING EXECUTIVE Neutrophils 11.17 (H) 1.56 - 04/10/2020 STMA 6.45 6:43 PM INTERNATIONAL MARKETING EXECUTIVE x10(9)/L Lymphocytes 0.74 (L) 0.95 - 04/10/2020 STMA 3.07 6:43 PM INTERNATIONAL MARKETING EXECUTIVE x10(9)/L Monocytes 0.40 0.26 - 04/10/2020 STMA 0.81 6:43 PM INTERNATIONAL MARKETING EXECUTIVE x10(9)/L Eosinophils <0.03 0.03 - 04/10/2020 STMA 0.48 6:43 PM INTERNATIONAL MARKETING EXECUTIVE x10(9)/L Basophils <0.03 0.01 - 04/10/2020 STMA 0.08 6:43 PM INTERNATIONAL MARKETING EXECUTIVE x10(9)/L Specimen Anatomical Collection Method Collection Time Receive d Time (Source) Location / / Volume Laterality Blood (Blood, 04/10/2020 6:34 PM 04/10/19 6:38 Venous) INTERNATIONAL MARKETING EXECUTIVE PM INTERNATIONAL MARKETING EXECUTIVE Lobito Jones M.D. LAB BLOOD ADD-ON Performing Organization Address City/State/ZIP Code Phon e Number [facility] - [address] [place], [place] [address] [facility] [place] [address] [facility] [address] Lactate (04/10/2020 6:34 PM INTERNATIONAL MARKETING EXECUTIVE) athologist Signature Lactate, P 1.9 0.5 - 2.2 04/10/2020 STMA mmol/L 6:51 PM INTERNATIONAL MARKETING EXECUTIVE Specimen Anatomical Collection Method Collection Time Receive d Time (Source) Location / / Volume Laterality Blood (Blood, 04/10/2020 6:34 PM 04/10/19 6:39 Venous) INTERNATIONAL MARKETING EXECUTIVE PM INTERNATIONAL MARKETING EXECUTIVE Lobito Jones M.D. LAB BLOOD NON ADD-ON Performing Organization Address City/State/[facility] Code Phon e Number [facility] - [address] [place], [place] [address] [facility] [place] [address] [facility] [address] (ABNORMAL) Basic Metabolic Panel (04/10/2020 6:34 PM INTERNATIONAL MARKETING EXECUTIVE) athologist Signature Potassium, P 3.8 3.6 - 5.2 04/10/2020 STMA mmol/L 6:55 PM INTERNATIONAL MARKETING EXECUTIVE Sodium, P 138 135 - 145 04/10/2020 STMA mmol/L 6:55 PM INTERNATIONAL MARKETING EXECUTIVE Chloride, P 107 98 - 107 04/10/2020 STMA mmol/L 6:55 PM INTERNATIONAL MARKETING EXECUTIVE Bicarbonate, P 23 22 - 29 04/10/2020 STMA mmol/L 6:55 PM INTERNATIONAL MARKETING EXECUTIVE Anion Gap, P 8 7 - 15 04/10/2020 STMA 6:55 PM INTERNATIONAL MARKETING EXECUTIVE BUN (Blood Urea 10 8 - 24 04/10/2020 STMA Nitrogen), P mg/dL 6:55 PM INTERNATIONAL MARKETING EXECUTIVE Creatinine 0.78 0.74 - 04/10/2020 STMA 1.35 mg/dL 6:55 PM INTERNATIONAL MARKETING EXECUTIVE eGFR-Black/Afric >90 >=60 04/10/2020 STMA an [place]alander mL/min/BSA 6:55 PM INTERNATIONAL MARKETING EXECUTIVE Comment: ----ADDITIONAL INFORMATION---- Estimated GFR calculated using the 2009 CKD_EPI creatinine equation. eGFR Non-Black/ 88 >=60 mL/min/BSA 6:55 PM INTERNATIONAL MARKETING EXECUTIVE STMA Comment: ----ADDITIONAL INFORMATION---- Estimated GFR calculated using the 2009 CKD_EPI creatinine equation. Calcium, Total, P 8.1 (L) 8.8 - 10.2 mg/dL 04/10/2020 6:55 PM INTERNATIONAL MARKETING EXECUTIVE STMA Glucose, P 157 (H) 70 - 140 mg/dL 04/10/2020 6:55 PM INTERNATIONAL MARKETING EXECUTIVE S TMA Specimen Anatomical Collection Method Collection Time Receive d Time (Source) Location / / Volume Laterality Blood (Blood, 04/10/2020 6:34 PM 04/10/19 6:39 Venous) INTERNATIONAL MARKETING EXECUTIVE PM INTERNATIONAL MARKETING EXECUTIVE Lobito Jones M.D. LAB BLOOD ADD-ON Performing Organization Address City/State/ZIP Code Phon e Number [facility] - [address] [place], [place] [address] [facility] [place] [address] [facility] [address] documented in this encounter Visit Diagnoses Diagnosis Anemia Posthemorrhagic Acute (Blood Loss Anemia) - Primary Urethral False Passage Thrombosis Deep Vein Acute Lower Extremi ty Bilateral (HCC) Hematuria Gross Change Mental Status Hypotension Herpes Genitalis Hypokalemia Hematuria Thrombosis Deep Vein Acute Lower Extremi ty Bilateral (HCC) documented in this encounter Administered Medications Inactive Administered Medications - up to 3 most recent administrations Medication Order MAR Action Action Date Dose Rate Site acetaminophen tablet 1,000 mg Given 04/15/2020 8:15 AM INTERNATIONAL MARKETING EXECUTIVE 1,000 mg (TYLENOL) 1,000 mg, oral, 4 times daily PRN, mild pain or score 1-3 of 10, Starting on Charisse 04/10/20 at 1819 Given 04/11/2020 8:43 AM INTERNATIONAL MARKETING EXECUTIVE 1,000 mg Given 04/10/2020 11:43 PM INTERNATIONAL MARKETING EXECUTIVE 1,000 mg albumin human 5 % injection 25 g New Bag 04/10/2020 10:32 PM INTERNATIONAL MARKETING EXECUTIVE 25 g 999 mL/hr 25 g, intravenous, Once, On Charisse 04/10/20 at 1845, For 1 dose, If no infusion rate specified: Administer the 5% solution at 999 mL/hr or less if ICU/shock, otherwise infuse at 250 mL/hr. apixaban tablet 2.5 mg (ELIQUIS) Given 04/15/2020 8:14 AM INTERNATIONAL MARKETING EXECUTIVE 2.5 mg 2.5 mg, oral, 2 times daily, First dose on 04/14/20 at 1200 Given 04/14/2020 8:47 PM INTERNATIONAL MARKETING EXECUTIVE 2.5 mg Given 04/14/2020 2:25 PM INTERNATIONAL MARKETING EXECUTIVE 2.5 mg belladonna alkaloids-opium 16.2-30 mg Given 04/11/2020 8:43 AM INTERNATIONAL MARKETING EXECUTIVE 1 suppository suppository 1 suppository (B&O SUPPRETTS) 1 suppository, rectal, Every 8 hours PRN, bladder spasms, Starting on Tue04/10/20 at 2247 Given 04/11/2020 12:46 AM INTERNATIONAL MARKETING EXECUTIVE 1 suppository bisacodyL suppository 10 mg (DULCOLAX) Given 04/12/2020 1:59 PM INTERNATIONAL MARKETING EXECUTIVE 10 mg 10 mg, rectal, Daily PRN, constipation, Starting on Tue04/10/20 at 1819, Ordered sequence of administration: polyethylene glycol, then bisacodyl until BM achieved. calcium carbonate chewable tablet Given 04/11/2020 6:0 5 PM INTERNATIONAL MARKETING EXECUTIVE 400 mg of calcium 400 mg of calcium (TUMS) 400 mg of calcium, oral, 3 times daily PRN, heartburn, indigestion, Starting on Tue04/11/20 at 1757, Doses listed are in mg of elemental calcium. Take with food. 500 mg calcium carbonate contains 200 mg of elemental calcium. fentaNYL injection 25 mcg (SUBLIMAZE) Given 04/10/2020 10:12 PM INTERNATIONAL MARKETING EXECUTIVE 25 mcg 25 mcg, intravenous, Every 1 hour PRN, moderate pain or score 4-6 of 10, severe pain or score 7-10 of 10, Starting on Tue04/10/20 at 2210, Up to maximum total dose of 200 mcg finasteride tablet 5 mg (PROSCAR) Given 04/15/2020 9:13 AM INTERNATIONAL MARKETING EXECUTIVE 5 mg 5 mg, oral, Daily, First dose on Tue04/10/20 at 2245, See tube feeding guidelines for tube feeding administration instructions. Given 04/14/2020 9:45 AM INTERNATIONAL MARKETING EXECUTIVE 5 mg Given 04/13/2020 8:27 AM INTERNATIONAL MARKETING EXECUTIVE 5 mg iohexoL 300 mg iodine/mL solution 1-200 mL Given 04/11/2020 9:27 PM INTERNATIONAL MARKETING EXECUTIVE 140 mL (OMNIPAQUE) 1-200 mL, intravenous, Once in imaging, contrast, Starting on Tue04/11/20 at 2126, For 1 dose, Imaging Protocol Orders, Dose per Radiant Medication Guidelines lactated Ringer's bolus 1,000 mL New Bag 04/10/2020 6:35 PM INTERNATIONAL MARKETING EXECUTIVE 1,000 mL 1000 mL/hr 1,000 mL, intravenous, at 1,000 mL/hr, Administer over 1 Hours, Once, On Charisse 04/10/20 at 1900, For 1 dose lactated Ringer's bolus 500 mL New Bag 04/11/2020 2:13 PM INTERNATIONAL MARKETING EXECUTIVE 500 mL 500 mL/hr 500 mL, intravenous, at 500 mL/hr, Administer over 1 Hours, Once, On Tue04/11/20 at 1400, For 1 dose lactated Ringer's bolus Bolus from Bag 04/11/2020 4:12 PM INTERNATIONAL MARKETING EXECUTIVE 1,000 mL 500 mL/hr 500 mL 500 mL, intravenous, at 500 mL/hr, Administer over 1 Hours, Once, On Tue04/11/20 at 1600, For 1 dose lactated Ringer's bolus 500 mL New Bag 04/12/2020 12:35 PM INTERNATIONAL MARKETING EXECUTIVE 500 mL 500 mL/hr 500 mL, intravenous, at 500 mL/hr, Administer over 1 Hours, Once, On [facility] 04/12/20 at 1245, For 1 dose lactated ringers Rate/Dose Verify 04/12/2020 11:00 AM INTERNATIONAL MARKETING EXECUTIVE 20 mL/hr 20 mL/hr 20 mL/hr, intravenous, Continuous, Starting on [place] 04/10/20 at 1830 Rate/Dose Verify 04/12/2020 10:00 AM INTERNATIONAL MARKETING EXECUTIVE 20 mL/hr 20 mL/hr Rate/Dose Verify 04/12/2020 9:00 AM INTERNATIONAL MARKETING EXECUTIVE 20 mL/hr 20 mL/hr levoFLOXacin in D5W IVPB 250 mg New Bag 04/14/2020 6:38 PM INTERNATIONAL MARKETING EXECUTIVE 250 mg 50 mL/hr (LEVAQUIN) 250 mg, intravenous, at 50 mL/hr, Administer over 60 Minutes, Every 24 hours, First dose on Tue04/11/20 at 1900, premix bag, Drug Monitoring Program: Pharmacist to adjust medication dosing based on indication and drug clearance factors., Indications: Lower UTI, catheter, Prophylaxis, medical New Bag 04/13/2020 6:01 PM INTERNATIONAL MARKETING EXECUTIVE 250 mg 50 mL/hr New Bag 04/12/2020 8:10 PM INTERNATIONAL MARKETING EXECUTIVE 250 mg 50 mL/hr levoFLOXacin in D5W IVPB 500 mg New Bag 04/10/2020 7:41 PM INTERNATIONAL MARKETING EXECUTIVE 500 mg 100 mL/hr (LEVAQUIN) 500 mg, intravenous, at 100 mL/hr, Administer over 60 Minutes, Once, On [place] 04/10/20 at 1900, For 1 dose, premix bag, Drug Monitoring Program: Pharmacist to adjust medication dosing based on indication and drug clearance factors., Indications: Lower UTI, catheter magnesium sulfate in D5W IVPB 1 g New Bag 04/10/2020 8:58 PM INTERNATIONAL MARKETING EXECUTIVE 1 g 100 mL/hr 1 g, intravenous, at 100 mL/hr, Administer over 60 Minutes, Once, On Charisse 04/10/20 at 2015, For 1 dose, Over 1 hours. premix bag NaCl 0.9 % irrigation solution 3,000 mL New Bag 04/11/2020 6:12 PM INTERNATIONAL MARKETING EXECUTIVE 3,000 mL 3,000 mL, irrigation, Continuous, Starting on Charisse 04/10/20 at 1830, FOR BLADDER IRRIGATION ONLY, NOT FOR IV USE New Bag 04/10/2020 8:04 PM INTERNATIONAL MARKETING EXECUTIVE 3,000 mL New Bag 04/10/2020 6:56 PM INTERNATIONAL MARKETING EXECUTIVE 3,000 mL NaCl 0.9 % irrigation solution 3,000 mL New Bag 04/11/2020 12:03 PM INTERNATIONAL MARKETING EXECUTIVE 3,000 mL 3,000 mL, irrigation, Continuous, Starting on Charisse 04/10/20 at 1830, FOR BLADDER IRRIGATION ONLY, NOT FOR IV USE New Bag 04/10/2020 11:04 PM INTERNATIONAL MARKETING EXECUTIVE 3,000 mL New Bag 04/10/2020 6:56 PM INTERNATIONAL MARKETING EXECUTIVE 3,000 mL naloxone injection 0.2 mg (NARCAN) 0.2 mg, intravenous, As needed, respirat ory depression, Starting on Charisse 04/10/20 at 1820, For RASS Score -4 or less, respiratory rate of l ess than 8 breaths/min. Notify provider/service and rapid response team (if av ailable at institution). norepinephrine 16 mcg/mL in D5W 250 mL i nfusion - ADS Override Pull Starting on Charisse 04/10/20 at 1816, For 1 dose, Created b y cabinet override Premix bag. Protect from light and avoid extravasation. norepinephrine 16 Rate/Dose Change 04/11/2020 12:20 0.01 mcg/kg/min 3 .36 mL/hr mcg/mL in D5W 250 mL AM INTERNATIONAL MARKETING EXECUTIVE infusion 0-0.3 mcg/kg/min ? 89.5 kg Order-specific weight (0-100.6875 mL/hr, rounded to 0-100.69 mL/hr), intravenous, Continuous, Starting on Charisse 04/10/20 at 1930, Premix bag. Protect from light and avoid extravasation., Patient Type: Standard, Initiate at: 0.05 mcg/kg/min, Titrate at: 0.05 mcg/kg/min. every 5 min., Wean at: 0.01 mcg/kg/min. every 5 min., Goal: MAP 60-80 Rate/Dose Verify 04/11/2020 12:00 AM INTERNATIONAL MARKETING EXECUTIVE 0.02 mcg/kg/min 6.71 mL/hr Rate/Dose Change 04/10/2020 11:45 PM INTERNATIONAL MARKETING EXECUTIVE 0.02 mcg/kg/min 6.71 mL/hr oxyCODONE IR tablet 5 mg (ROXICODONE) Given 04/11/2020 12:21 AM INTERNATIONAL MARKETING EXECUTIVE 5 mg 5 mg, oral, Every 4 hours PRN, moderate pain or score 4-6 of 10, Starting on Tue04/10/20 at 1819 polyethylene glycol powder packet 1 pack et (MIRALAX) 1 packet, oral, Daily PRN, constipation, Starting on Tue04/10/20 at 1819, Ordered sequence of administration: polyethylene glycol, then bisacodyl until BM achieved. Avoid mixing with starch-based thickened liquids. potassium chloride ER tablet 20 mEq Given 04/10/2020 9:41 PM INTERNATIONAL MARKETING EXECUTIVE 20 mEq (KLORCON/K-TAB) 20 mEq, oral, Once, On Tue04/10/20 at 2015, For 1 dose, For K 3.6-3.9 mEq/L - give total of 20 mEq Swallow whole. Do NOT crush, chew, or split tablet., Monitor the following for replacement: Potassium, Replace Potassium per: Cardiac Schedule sennosides-docusate sodium 8.6-50 mg per Given 04/15/2020 8:15 A M INTERNATIONAL MARKETING EXECUTIVE 1 tablet tablet 1 tablet (SENOKOT-S) 1 tablet, oral, 2 times daily, First dose on Tue04/10/20 at 2100, Do not give if patient has diarrhea. Given 04/14/2020 8:47 PM INTERNATIONAL MARKETING EXECUTIVE 1 tablet Given 04/14/2020 9:45 AM INTERNATIONAL MARKETING EXECUTIVE 1 tablet sodium chloride (PF) 0.9 % injection 1-1 00 mL Given 04/11/2020 9:27 PM INTERNATIONAL MARKETING EXECUTIVE 50 mL 1-100 mL, intravenous, Once, On Tue04/11/20 at 2130, For 1 dose, Imaging Protocol Orders trospium tablet 20 mg (SANCTURA) Given 04/15/2020 6:28 AM INTERNATIONAL MARKETING EXECUTIVE 20 mg 20 mg, oral, 2 times daily before breakfast and dinner, First dose on Tue04/10/20 at 2300, Administer with water at least 1 hr prior to meals., Restriction Criteria (Pharmacy will review and approve if criteria met): Does not meet criteria (Specialty provider recommended), Authorizing provider? Callum Charlton MD Given 04/14/2020 6:00 PM INTERNATIONAL MARKETING EXECUTIVE 20 mg Given 04/14/2020 6:57 AM INTERNATIONAL MARKETING EXECUTIVE 20 mg valACYclovir tablet 500 mg (VALTREX) Given 04/15/2020 8:14 AM INTERNATIONAL MARKETING EXECUTIVE 500 mg 500 mg, oral, 2 times daily, First dose on Tue04/10/20 at 2100, Drug Monitoring Program: Pharmacist to adjust medication dosing based on indication and drug clearance factors., Indications: Chickenpox/herpes zoster, HSV, non-BUSINESS SALES CONSULTANT Given 04/14/2020 8:47 PM INTERNATIONAL MARKETING EXECUTIVE 500 mg Given 04/14/2020 9:45 AM INTERNATIONAL MARKETING EXECUTIVE 500 mg documented in this encounter Active and Recently Administered Medications Times are shown in INTERNATIONAL MARKETING EXECUTIVE. Scheduled Medication Order 04/13/2020 04/14/2020 04/15/2020 apixaban tablet 2.5 mg (ELIQUIS) 1425 (G iven - Provider: Mriian Padilla RCollins. - Comment: Waiting for up from Pharm)2046 (Given - Provider: Maddi Phelps RCollins.) 0814 (Given - Provider: Zuri Kwong RTiffanie) 2.5 mg, oral, 2 times daily, First dose on Tue04/14/20 at 1200 finasteride tablet 5 mg (PROSCAR) 0827 (Given - Provider: Chelo Lofton R.N.) 0945 (Given - Provider: Mirian Padilla R.N.) 0913 (Given - Provider: Zuri Kwong R.N.) 5 mg, oral, Daily, First dose on 03/28 at 2245, See tube feeding guidelines for tube feeding administration instructions. levoFLOXacin in D5W IVPB 250 mg (LEVAQUIN) 1801 (New B ag - Provider: Basilia Lofton R.N.) 1838 (New Bag - Provider: Zuri Kwong R.N.) 250 mg, intravenous, at 50 mL/hr, Admini ster over 60 Minutes, Every 24 hours, First dose on Tue04/11/20 at 1900, premix bag, Drug Monitoring Program: Pharmacist to adjust medication dosing based on brianne cation and drug clearance factors., Brianne cations: Lower UTI, catheter, Prophylaxis, medical sennosides-docusate sodium 8.6-50 mg per tablet 1 tabl et (SENOKOT-S) 0828 (Given - Provider: Basilia Lofton R.N.)2108 (Given - Provider: Maral Ceron R.N.) 0945 (Given - Provider: Mirian swan R.NMak)2047 (Given - Provider: Maddi Phelps R.N.) 0815 (Given - Provider: Zuri Kwong R.N.) 1 tablet, oral, 2 times daily, First dos e on Tue04/10/20 at 2100, Do not give if patient has diarrhea. trospium tablet 20 mg (SANCTURA) 0606 (Given - Provide r: Tyron Marcano R.N.)1707 (Given - Provider: Basilia Lofton R.N.) 0657 (Given - Provider: Maral Ceron R.N.)1800 (Given - Provider: Zuri Kwong R.N.) 0628 (Given - Provider: Maddi Phelps R.N.)1600 (Due) 20 mg, oral, 2 times daily before breakf ast and dinner, First dose on Tue04/10/20 at 2300, Administer with water at least 1 hr prior to meals., Restriction Criteria (Pharmacy will review and approve if criteria met): Does not meet criteria (S pecialty provider recommended), Authorizing provider? Callum Charlton MD valACYclovir tablet 500 mg (VALTREX) 0828 (Given - Pro vider: Basilia Lofton R.N.)3 (Given - Provider: Maral Ceron RMakNMak) 0953 (Given - Provider: Mirian Padilla RMakNMak)2046 (Given - Provider: Maddi Phelps RMakNMak) 0814 (Given - Provider: Zuri Kwong R.N.) 500 mg, oral, 2 times daily, First dose on [place] 04/10/20 at 2100, Drug Monitoring Program: Pharmacist to adjust medication dosing based on indication and drug clearance factors., Indications: Chickenpox/herpes zoster, HSV, non-BUSINESS SALES CONSULTANT Continuous Medication Order 04/13/2020 04/14/2020 04/15/2020 lactated ringers 20 mL/hr, intravenous, Continuous, Starting on [place] 04/10/20 at 18 30 NaCl 0.9 % irrigation solution 3,000 mL 3,000 mL, irrigation, Continuous, Starti ng on [place] 04/10/20 at 1830, FOR BLADDER IRRIGATION ONLY, NOT FOR IV USE NaCl 0.9 % irrigation solution 3,000 mL 3,000 mL, irrigation, Continuous, Starti ng on [place] 04/10/20 at 1830, FOR BLADDER IRRIGATION ONLY, NOT FOR IV USE PRN Medication Order 04/13/2020 04/14/2020 04/15/2020 acetaminophen tablet 1,000 mg (TYLENOL) 0815 (Given - Provider: Zuri Kwong R.N.) 1,000 mg, oral, 4 times daily PRN, mild pain or score 1-3 of 10, Starting on [place] 04/10/20 at 1819 belladonna alkaloids-opium 16.2-30 mg suppository 1 evans ppository (B&O SUPPRETTS) 1 suppository, rectal, Every 8 hours PRN , bladder spasms, Starting on [place] 04/10/20 at 2247 bisacodyL suppository 10 mg (DULCOLAX) 10 mg, rectal, Daily PRN, constipation, Starting on [place] 04/10/20 at 1819, Ordered sequence of administration: polyethylene glycol, then bisacodyl until BM achieved. calcium carbonate chewable tablet 400 mg of calcium (TUMS) 400 mg of calcium, oral, 3 times daily P RN, heartburn, indigestion, Starting on Tue04/11/20 at 1757, Doses listed are in mg of elemental calcium. Take with food. 500 mg calcium carbonate contains 200 mg of elemental calcium. naloxone injection 0.2 mg (NARCAN) 0.2 mg, intravenous, As needed, respirat ory depression, Starting on [place] 04/10/20 at 1820, For RASS Score -4 or less, respiratory rate of less than 8 breaths/min. Notify provider/service and rapid response team (if available at institution). oxyCODONE IR tablet 5 mg (ROXICODONE) 5 mg, oral, Every 4 hours PRN, moderate pain or score 4-6 of 10, Starting on [place] 04/10/20 at 1819 polyethylene glycol powder packet 1 packet (MIRALAX) 1 packet, oral, Daily PRN, constipation, Starting on Tue04/10/20 at 1819, Ordered sequence of administration: polyethylene glycol, then bisacodyl until BM achieved. Avoid mixing with starch-based thickened liquids. documented in this encounter
--- OUTSIDE RECORDS SUMMARY | 2021-12-07 09:57 | XMS_ITS | Encounter Summary ---
:1945 Author Organization [facility] Address [address] [place] [address] Care Team Providers Name Role Phone Unavailable Primary Care Provider Unavailable Reason for Visit Outpatient (Routine) - Closed Specialty Diagnoses / Procedures Referred By Contact Refer red To Contact Vascular Medicine Radu Draper M. D. [facility] [address] [place], [place] [address] Referral ID Status Reason Start Date Expiration Date Visits Requ ested Visits Authorized [id number] Closed 04/28/2020 04/28/2021 1 1 Encounter Details Date Type Department Care Team Description 05/15/2020 Office Visit Department of Radu Draper Thrombosis D eep Vein Acute Lower Extremity Bilateral (HCC) (Primary Dx); Vascular Medicine norris Lau M.D. Peripheral Arterial Disease (HCC); [place], [place] [address] Stroke Cerebrovascular Accident Personal History; [address] [place], [place] Embolus Pulmonary Personal H istory; [place] [address] Anticoagulant Therapy [id number] [phone] Social History Tobacco Use Types Packs/Day Years [...] or relatives? How often do you attend pentecostalism or buddhism Never 05/11/2020 services? Do you belong to any clubs or organizations Yes 05/11/2020 such as pentecostalism groups, unions, fraternal or athletic groups, or [...] have completed or the highest Mani, MEd, DORMITORY KEEPER, BERTA) degree you have received? Sex Assigned at Date Recorded Not on file documented as of this encounter Last Filed Vital Signs Vital Sign Reading Time Taken Comments Blood Pressure 108/58 05/15/2020 3:51 PM BILINGUAL KINDERGARTEN TEACHER Pulse 54 05/15/2020 3:51 PM BILINGUAL KINDERGARTEN TEACHER Temperature - - Respiratory Rate - - Oxygen Saturation - - Inhaled Oxygen Concentration - - Weight 82.9 kg (182 lb 12.2 oz) 05/15/2020 3:47 PM BILINGUAL KINDERGARTEN TEACHER Height 169.1 cm (5' 6.58) 05/15/2020 3:47 PM BILINGUAL KINDERGARTEN TEACHER Body Mass Index 28.99 05/15/2020 3:47 PM BILINGUAL KINDERGARTEN TEACHER documented in this encounter Patient Instructions Patient InstructionsRadu Draper M.D. - 05/15/2020 4:00 PM CST 1. Start baby Aspirin around 05/22/2020 and take every other day. 2. Watch for any bleeding from the urine. 3. Keep taking the Eliquis twice daily. 4. I hope to stop Eliquis after your upcoming repeat leg ultrasound. Radu Draper MD [facility] NGUAL KINDERGARTEN TEACHER documented in this encounter Consult Notes Radu Draper M.D. - 05/15/2020 4:00 PM CST REFERRAL SOURCE Radu Draepr M.D. [address] [place] [phone] On 04/28/20, I wrote: 1. Essentially asymptomatic venous thromboembolism including left [...] by clear urine in the leg bag. ?? 2. History of recent acute ischemic stroke from right carotid artery critical stenosis status post right carotid endarterectomy. Currently not on antiplatelet agents due to major urologic bleeding. I do note that he still has an ongoing soft bruit over the site of previous right carotid endarterectomy. ?? 3. Asymptomatic peripheral arterial disease as is evidenced by soft bruits over both common femoral arteries. ?? Recommendations: 1. Given the improvements seen on [...] talk about that in some detail today. ?? Please note, I spent approximately 1 hour with him today interviewing and examining the patient, reviewing the medical record, educating the patient and coming up with a game plan. I will make certain this note gets to his primary urologist as well. ?? SUBJECTIVE CHIEF COMPLAINT / REASON FOR VISIT Mr. Samayoa is a 74 y.o. male that I am seeing today for short interval follow-up. I have reviewed Dr. Ramiro Jimenez 6 excellent note from earlier this morning. Thankfully, the patient's urine remains clear and I believe they removed the Bryant catheter earlier today as a trial for spontaneous urination. From a blood thinner standpoint, he remains on the modified dose of apixaban and he remains off of all antiplatelet agents. The patient denies any new asymmetric lower limb complaints. Likewise, he denies any new chest pain or shortness of breath. His catheter came out this morning. In they have not noticed any blood tinged urine on the garment. He has tolerated the apixaban well with no other bleeding through any other orifice either. The following portions of the patient's history [...] present. No definite S3 or S4. RRR. Soft bruit still noted over the right carotidartery. No bruit over the left carotid artery. Pulmonary: Clear to auscultation bilaterally with good air exchange to the bases. No adventitious sounds or wheezing. HEENT: Deferred GI: Deferred Extremities: No asymmetric edema. The skin of his lower limbs was not evaluated as I did not take his compression garments off today. Pulse exam: Excellent upper limb distal pulses which were symmetric. DIAGNOSTIC REVIEW: No new labs in our system. Pertinant Vascular studies: I reviewed past vascular studies. ASSESSMENT / PLAN In summary, a very pleasant 74-year-old male who developed provoked but asymptomatic acute left lower lobe pulmonary embolism and right soleal and peroneal vein age-indeterminate thrombus on 04/11/2020in the setting of multiple acute hospitalizations with attendant immobility. This was initially treated with compression stockings and observation only on account of his significant urologic hemorrhage. History of interval development of new thrombus in right posterior tibial and left peroneal vein on 04/14/2020. He was also found to have new thrombus in the right small saphenous vein superficial vein. Because of this finding, the patient was reluctantly placed on modified dose direct oral anticoagulation in the form of apixaban. Subsequent ultrasound done on 04/28/2020 demonstrated interval improvement in the status of his distal lower limb blood clots. 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 Date of original injury occurred around March 06, 2020. This was exacerbated by dual antiplatelet therapy. Note he requiredat least 6 units of packed red blood cells and was persistent for some time. He was sent home with Bryant catheter in place for several weeks and now has just had his Bryant catheter removed. Thankfully,he has had clear urine now for the past several weeks. History of peripheral arterial disease namely right carotid artery severe disease which resulted in an acute ischemic stroke. Because of the above-stated urologic bleeding and requirement for anticoagulant therapy, we had held off on all antiplatelet agents for up to this point. However, now that the Bryant catheter has been removed, I think it is time to carefully reinitiate antiplatelet therapy. Recommendations: 1. Continue ???modified dose?? apixaban for [...] simply stay on this dose until the endojune when he is slated for repeat lower [...] the incidence of recurrent venous thromboembolic disease. I did write these instructions out on his after visit summary which was printed for him. I look forward to seeing him back in mid to late June with pre visit bilateral lower limb standard venous duplex. Raud Draper MD [facility] NGUAL KINDERGARTEN TEACHER documented in this encounter Plan of Treatment Not on filedocumented as of this encounter Visit Diagnoses Diagnosis Thrombosis Deep Vein Acute Lower Extremi ty Bilateral (HCC) - Primary Peripheral Arterial Disease (HCC) Stroke Cerebrovascular Accident Personal History Embolus Pulmonary Personal History Anticoagulant Therapy documented in this encounter
--- OUTSIDE RECORDS SUMMARY | 2021-12-07 09:57 | XMS_ITS | Encounter Summary ---
:1945 Author Organization [facility] Address [address] [place] [address] Care Team Providers Name Role Phone Unavailable Primary Care Provider Unavailable Encounter Details Date Type Department Care Team Description 09/28/2017 Nurse Triage Department of [facility] , Medicine in [facility] [address] [place] [phone] Social History Tobacco Use Types Packs/Day Years [...] or relatives? How often do you attend mosque or religion Never 05/11/2020 services? Do you belong to any clubs or organizations Yes 05/11/2020 such as mosque groups, unions, fraternal or athletic groups, or [...]
--- OUTSIDE RECORDS SUMMARY | 2021-12-07 09:57 | XMS_ITS | Encounter Summary ---
:1945 Author Organization [facility] Address [address] [place] [id number] Care Team Providers Name Role Phone Unavailable Primary Care Provider Unavailable Reason for Visit Outpatient (Routine) - Closed Specialty Diagnoses / Procedures Referred By Contact Refer red To Contact Diagnoses False Passage Urethra Prostatic Ramiro Jimenez M.D. [facility] Procedures URO Uroflow [address] [place] [address] Referral ID Status Reason Start Date Expiration Date Visits Requ ested Visits Authorized [id number] Closed 05/15/2020 05/15/2021 1 1 Encounter Details Date Type Department Care Team Description 08/12/2020 Procedure visit Department of Urology Ramiro Jimenez M.D. False Passage Urethra Prostatic; in Pass Christian, Callum Marcos M.D. [address] [place] [phone] Feeling Of Incomplete Bladder Emptying; [place] Claudia Alvarez, L.P.N. 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 How often do you attend worship or samaritan Never 05/11/2020 services? Do you belong to any clubs or organizations Yes 05/11/2020 such as worship groups, unions, fraternal or athletic groups, or [...] have completed or the highest Mani, MEd, NON DESTRUCTIVE TESTING SPECIALIST, BERTA) degree you have received? Sex Assigned at Date Recorded Not on file documented as of this encounter Progress Notes Claudia Alvarez, Cornelia.P.N. - 08/12/2020 10:00 AM CDT CHIEF COMPLAINT Patient here for a complex uroflow via calibrated electronic equipment and a residual urine check byultrasound. IMPRESSION/REPORT/PLAN Dr. Ramiro Jimenez ordered the patient to have a complex uroflow with residual urine check via ultrasound. Patient had a had a mild urge to void. Uroflow was completed at this time. Patient voided 178mL's and had a ultrasound residual of 17 mL's. Patient rates pain at 0 on the 0 to 10 pain scale post procedure. documented in this encounter Procedure Notes Callum Marcos M.D. - 08/12/2020 10:00 AM CDTAssociated Order(s): URO UROFLOW REASON FOR VISIT: Uroflow: The patient here for a complex uroflow via calibrated electronic equipment and a residual urine check by ultrasound. FINDINGS: Peak flow 11 ml/sec Average flow 7 ml/sec Voiding time 35 sec Total voided volume 178 mls Residual urine 17 ml by ultrasound Detrusor flow pattern IMPRESSION: Low postvoid residual with low Qmax. Differential diagnosis includes normal variant uroflow versus bladder outlet obstruction versus hypocontractile bladder. Clinical correlation is recommended. documented in this encounter Plan of Treatment Not on filedocumented as of this encounter Procedures Procedure Name Priority Date/Time Associated Diagnosis Comme nts URO UROFLOW Routine 08/12/2020 10:00 AM False Passage Urethra Results for this CDT Prostatic procedure are i n the results section . documented in this encounter Results URO Uroflow (08/12/2020 10:00 [...] versus hypocontractile bladder. Clinical correlation is recommended. Ramiro Jimenez M.D. 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
--- OUTSIDE RECORDS SUMMARY | 2021-12-07 09:57 | XMS_ITS | Encounter Summary ---
:1945 Author Organization [facility] Address [address] [place] [id number] Care Team Providers Name Role Phone Unavailable Primary Care Provider Unavailable Reason for Visit Outpatient (Routine) - Closed Specialty Diagnoses / Procedures Referred By Contact Refer red To Contact Urology Ramiro Jimenez M.D . [address] [address] Referral ID Status Reason Start Date Expiration Date Visits Requ ested Visits Authorized [id number] Closed 05/15/2020 05/15/2021 1 1 Encounter Details Date Type Department Care Team Description 08/12/2020 Office Visit Department of Urology Ramiro Garrison, Teri hernándezal False Passage in [place] (Primary Dx) [address] [phone] Social History Tobacco Use Types Packs/Day Years [...] or relatives? How often do you attend hinduism or jewish Never 05/11/2020 services? Do you belong to any clubs or organizations Yes 05/11/2020 such as hinduism groups, unions, fraternal or athletic groups, or [...] level of school Master's degree (e.g., M Estefania, MS, 05/11/2020 you have completed or the highest Mani, MEd, LANDSCAPE PHOTOGRAPHER, BERTA) degree you have received? Sex Assigned at Date Recorded Not on file documented as of this encounter Progress Notes Ramiro Garrison M.D. - 08/12/2020 11:30 AM CDT HISTORY OF PRESENT ILLNESS Mr. Samayoa is a pleasant 74 y.o. male who presents today for follow-up. Patient's past medical historyof gross hematuria, CVA on aspirin Plavix, hypertension. Patient had a false passage of his urethra earlier this year during hospitalization the include management of a lower extremity DVT and asymptomatic pulmonary embolism. Urologic history is notable for BPH status post TURP in 1999. In winter of last year, patient underwent a CTA on March 10 and developed urinary retention. Bryant catheter was placed resulting grosshematuria requiring CBI. He then underwent cystoscopy, bladder neck dilation, clot evacuation. He then underwent repeat cystoscopy, urethral dilation, clot evacuation on March 28. He was last evaluated by Urology on May 15 at which time the patient indwelling Bryant catheter with clear/yellowurine. He underwent UCO voiding trial. Patient presents today with uroflow and PVR of only 17 cc. He denies any episodes of recurrent grosshematuria. Overall is feeling very well. Has some small amount of leakage but on most days does not require a pad. No recent urinary tract infections. PAST MEDICAL/SURGICAL HISTORY MEDICAL Patient Active Problem List Diagnosis Date Noted ??? False Passage Urethra Prostatic 05/15/2020 ??? Hematuria 04/12/2020 ??? Urethral False Passage 04/10/2020 ??? Anemia Posthemorrhagic Acute (Blood Loss Anemia) 04/10/2020 ??? Hematuria Gross 04/10/2020 ??? Change Mental Status 04/10/2020 ??? Hypotension 04/10/2020 ??? 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 Hypokalemia 04/10/2020 No past medical history on file. SURGICAL No past surgical history on file. MEDICATIONS Current Outpatient Medications: ??? aspirin [address] tablet, Take 1 tablet (81 mg total) by mouth daily., Disp: 90 tablet, Rfl: 3 ??? cholecalciferol, vitamin D3, 25 mcg (1,000 [...] care provider. , Disp: , Rfl: ??? sennosides (SENOKOT) 8.6 mg tablet, Take 8.6 mg by mouth., Disp: , Rfl: ??? sennosides-docusate sodium (SENOKOT-S) 8.6-50 mg per tablet, Take 1 tablet by mouth 2 (two) times a day., Disp: , Rfl: ??? valACYclovir (VALTREX) 1000 mg tablet, Take 1 g by mouth as needed. , Disp: , Rfl: ??? VITAMIN B COMPLEX ORAL, Take 1 tablet by mouth., Disp: , Rfl: ??? zinc chelated 50 mg tablet tablet, Take 50 mg by mouth daily., Disp: , Rfl: ??? apixaban (ELIQUIS) 2.5 mg tablet, Take 2.5 mg by mouth., Disp: , Rfl: ALLERGIES Allergies Allergen Reactions ??? Atorvastatin Myalgia ??? Citalopram Tinnitus SOCIAL HISTORY Social History Socioeconomic History ??? Marital status: Single Spouse name: Not on file ??? Number of children: Not on file ??? Years of education: Not on file ??? Highest education level: 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, LANDSCAPE PHOTOGRAPHER, BERTA) Occupational History ??? Not on file Tobacco Use ??? Smoking status: Former Smoker ??? Smokeless tobacco: Never Used Substance and Sexual Activity ??? Alcohol use: Not on file ??? Drug use: Not on file ??? Sexual activity: Not on file Other Topics Concern ??? Not on file Social History Narrative ??? Not on file Social Determinants of Health Financial Resource Strain: Low Risk ??? Difficulty of Paying Living Expenses: Not very hard Food Insecurity: No Food Insecurity ??? Worried About Running Out of Food in the Last Year: Never true ??? Ran Out of Food in the Last Year: Never true Transportation Needs: No Transportation Needs ??? Lack of Transportation (Medical): No ??? Lack of Transportation (Non-Medical): No Physical Activity: Unknown ??? Days of Exercise per Week: 0 days ??? Minutes of Exercise per Session: Not on file Stress: No Stress Concern Present ??? Feeling of Stress : Not at all Social Connections: Moderately Integrated ??? Frequency of Communication with Friends and Family: Twice a week ??? Frequency of Social Gatherings with Friends and Family: Once a week ??? Attends [employer] Services: Never ??? Active Member of Clubs or Organizations: Yes ??? Attends Club or Organization Meetings: More than 4 times per year ??? Marital Status: Living with partner Intimate Partner Violence: ??? Fear of Current or Ex-Partner: ??? Emotionally Abused: ??? Physically Abused: ??? Sexually Abused: FAMILY HISTORY No family history on file. SYSTEMS REVIEW PHYSICAL EXAMINATION There were no vitals taken for this visit. General: NAD Mental status: AAOx3 Psychiatric: appropriate disposition HEENT: NCAT, conjugate gaze Respiratory: non-labored breathing Cardiovascular: RRR, upper extremities warm Abdomen: soft, no CVA tenderness Musculoskeletal: moves all 4 extremities Skin: no visible rashes Neurologic: intake sensation to the upper extremities LABS Lab Results Component Value Date NA 143 04/14/2020 CL 107 04/14/2020 BUN 7 (L) 04/14/2020 HGB 9.5 (L) 04/15/2020 HCT 30.2 (L) 04/15/2020 WBC 5.6 04/15/2020 Lab Results Component Value Date/Time CREATININE 0.90 04/14/2020 03:04 AM CREATININE 0.95 04/13/2020 03:32 AM CREATININE 0.93 04/12/2020 04:04 AM CREATININE 0.82 04/11/2020 05:57 PM CREATININE 0.87 04/11/2020 04:45 AM CREATININE 0.78 04/10/2020 06:34 PM No results found for: PSA MICROBIOLOGY/CULTURE DATA Microbiology Results (last 30 days) No results found for the last 720 hours. PATHOLOGY No results found for this or any previous visit (from the past 720 hour(s)). IMAGING AND TESTS US Lower Extremity Veins Bilateral Result Date: 07/15/2020 Impression: 1. Negative for acute DVT. 2. Continued evolution of previously seen DVT now with residual wall thickening in the right posterior tibial and peroneal veins as well as the bilateral small saphenous veins consistent with post thrombotic change. IMPRESSION/REPORT/PLAN #1 Previous episode of gross hematuria I met with Mr. Samayoa and his today in follow-up. Fortunately the patient is emptying his bladderadequately and has not had any additional episodes of gross hematuria. Would therefore not recommendany additional urologic workup or intervention at this time. I instructed the patient that if he were to have gross hematuria again in the future he should let us know as this would likely warrant a formal hematuria evaluation with CT urogram, cystoscopy, urine cytology. documented in this encounter Plan of Treatment Not on filedocumented as of this encounter Visit Diagnoses Diagnosis Urethral False Passage - Primary documented in this encounter
--- OUTSIDE RECORDS SUMMARY | 2021-12-07 09:57 | XMS_ITS | Encounter Summary ---
:1945 Author Organization [facility] Address [address] [place] [address] Care Team Providers Name Role Phone Unavailable Primary Care Provider Unavailable Encounter Details Date Type Department Care Team Description 09/14/2012 Hospital Encounter HX [facility] EUKristel Webster P.A.-C. [address] [place] [id number] (Wo rk) Social History Tobacco Use Types Packs/Day Years [...] or relatives? How often do you attend samaritan or confucianism Never 05/11/2020 services? Do you belong to any clubs or organizations Yes 05/11/2020 such as samaritan groups, unions, fraternal or athletic groups, or [...] Sign Reading Time Taken Comments Blood Pressure 112/72 09/14/2012 8:06 AM CDT Pulse 76 09/14/2012 8:06 AM CDT Temperature - - Respiratory Rate 09/14/2012 8:06 AM CDT Oxygen Saturation - - Inhaled Oxygen Concentration - - Weight 89.4 kg (197 lb 1.5 oz) 09/14/2012 8:06 AM CDT Height - - Body Mass Index - - documented in this encounter Medications at Time of Discharge Medication Sig Dispensed Refills Start Date End Date atorvastatin (LIPITOR) 20 Take 1 tablet by 0 08/2704/13/2020 mg tablet mouth at bedtime. documented as of this encounter Progress Notes Spencer Garza P.A.-C. - 09/14/2012 8:00 AM CDT Progress Note, Family Practice DATE: 09/14/2012 FAMILY MEDICINE Hernandez presents today with a two day history of sore throat, cough and congestion. States he has been working in an attic of an old barn for approximately two weeks with multiple dust, mouse droppings,insulation and all kinds of things up in the attic that has been causing him some issues. He states he has not been wearing any type of breathing apparatus or a mask to protect him from the air filled with contaminants. He denies any shortness of breath. No chest pain. No nausea, vomiting or diarrhea.States his appetite is good, drinking fluids well but activity level though is diminished. No other symptoms or complaints at this time. CURRENT MEDICATIONS Reviewed on EMR. ALLERGIES Reviewed on EMR. PHYSICAL EXAMINATION IN GENERAL: A 66-year-old white male, well-developed and well-nourished in no acute distress. He is alert and oriented times three. VITAL SIGNS: Temperature 36.3. Pulse 76. Respirations 20. Blood pressure 112/72. Weight 89.4 kg. He denies use of tobacco products. HEAD: Normocephalic without trauma. EYES: Pupils equal, round, and reactive to light. Conjunctivae clear. Extraocular movements intact. EARS: Auricles in normal alignment. Canals pink and patent. Tympanic membranes crow and translucent. Light reflex and landmarks present bilaterally. NOSE: No flaring n oted. Nares patent. Mucosa is erythematous without exudate. He is nontender over his maxillary or frontal sinuses. OROPHARYNX: Buccal mucosa pink and moist without lesions. Teeth in good repair. Gag reflex intact. Pharynx is erythematous without exudate. NECK: Supple and nontender without adenopathy or thyromegaly. CARDIAC: Regular rate and rhythm without murmur. LUNGS: Clear to auscultation. NEUROLOGIC: Normal speech, gait and balance. SKIN: Warm and dry to the touch. No unusual rashes or lesions noted. IMPRESSION/REPORT/PLAN ASSESSMENT: Acute pharyngitis. PLAN: 1. prescription for amoxicillin 500 mg, patient to take one capsule twice a day for the next 10 days, 20 total with no refills. 2. Prescription for Tessalon pearls 100 mg. Patient to take one malini every eight hours as needed for cough. 3. Recommend force fluids and rest. Good hygiene and handwashing discussed. Encouraged the patient to wear some type of breathing apparatus or at least a mask to protect him from breathing in the contaminants in the attic or barn that he is cleaning out. 4. Recommend follow up if his symptoms persist in five to seven days, sooner if they progress over that time period or return to clinic on an as needed basis for any other health concerns that he may have. Both the patient and his spouse state understanding. Clinic #: [id number] [facility] SPENCER BECKFORD MD, TOSHIA - [id number] CC: Electronically Signed By: SPENCER GARZA PA-C On: 09/14/2012 04:44 PM Co-Signed By: TOSHIA BECKFORD MD On: 09/18/2012 09:59 AM Source: [facility] [employer] Document Id: [id number] documented in this encounter Miscellaneous Notes Miscellaneous - Ellen Adams - 09/14/2012 8:09 AM CDT Health Assessment Health Assessment Entered On: 09/14/2012 8:09 CDT Performed On: 09/14/2012 8:09 CDT by ELLEN ADAMS MA Health Assessment Complete Health Assessment Complete or Modified : Annual Health Assessment Annual Health Assessment Completed : Yes ELLEN ADAMS MA - 09/14/2012 8:09 CDT Nutrition Nutrition Risk Factors by History Adult : None ELLEN ADAMS MA - 09/14/2012 8:09 CDT Functional Current Daily Living Assistance : None ELLEN ADAMS MA - 09/14/2012 8:09 CDT Dependent Habits Tobacco Use/Currently Using : No Smoking Status : Former smoker ELLEN ADAMS MA - 09/14/2012 8:09 CDT Psychosocial Domestic Abuse Concerns : None ELLEN ADAMS MA - 09/14/2012 8:09 CDT Advance Directive Advanced Directives : No Advance Directive Additional Information : No ELLEN ADAMS MA - 09/14/2012 8:09 CDT Educ Needs Learning Style Preference Adult Grid Patient : None Family : None ELLEN ADAMS MA - 09/14/2012 8:09 CDT Source: [employer] Document Id: [id number] CDT!20 Miscellaneous - Ellen Adams - 09/14/2012 8:06 AM CDT Adult Eyeglass Maker Intake/History Adult Eyeglass Maker Intake/History Entered On: 09/14/2012 8:09 CDT Performed On: 09/14/2012 8:06 CDT by ELLEN ADAMS [place] Intake Chief Complaint : cough, congestion Onset of Symptoms : 2 days Temperature Core : 36.3 DegC(Converted to: 97.3 DegF) (LOW) Peripheral Pulse Rate : 76 /min Respiratory Rate : 20 /min Heart Rhythm : Regular Systolic Blood Pressure : 112 mmHg Diastolic Blood Pressure : 72 mmHg NIBP Mean : 85 mmHg BP Location : Right upper extremity Blood Pressure Cuff Size : Large Actual Weight : 89.4 kg(Converted to: 197 lb 1 oz) Weight Source : Standing scale Dosing Weight Clinic : 89.4 kg ELLEN ADAMS [place] - 09/14/2012 8:06 CDT General Info Information Given By : Patient Languages : Tristanian ELLEN ADAMS [place] - 09/14/2012 8:06 CDT Subjective Pain Symptoms : No ELLEN ADAMS [place] - 09/14/2012 8:06 CDT Dependent Habits Tobacco Use/Currently Using : No Smoking Status : Former smoker ELLEN ADAMS [place] - 09/14/2012 8:06 CDT Source: [employer] Document Id: [id number] CDT!24 documented in this encounter Plan of Treatment Not on filedocumented as of this encounter Visit Diagnoses Not on filedocumented in this encounter
--- NOTE | 2021-12-07 10:28 | PC.NURSE ---
pt returned from ct, sitting up in chair. states intermittent left lower back pain improved after tylenol. feels a bit better. Sitting in chair. had to leave for appt at clinic. will keep updated.
--- NOTE | 2021-12-07 12:21 | PC.NURSE ---
pt states they have a meeting they need to be at and need to leave. updated physician. Pt states unable to stay, signing AMA and physician will be calling patient with plan, possibly having pt return as they were not willing to stay until consult with dora physician. vital signs stable, pt up walking in room, denies pain currently.
--- NOTE | 2021-12-07 12:29 | PC.NURSE ---
pt left AMA at 12:30
== END 2021-12-07 15:55 | disposition left against medical advice (07) ==
PROVIDERS: Emergency Provider Family Medicine; PCP Family Medicine
DX: S32.008A Other fracture of unspecified lumbar vertebra, initial encounter for closed fracture (principal); W10.8XXA Fall (on) (from) other stairs and steps, initial encounter; Y93.E9 Activity, other interior property and clothing maintenance; Y92.018 Other place in single-family (private) house as the place of occurrence of the external cause; Y99.9 Unspecified external cause status
CPT/HCPCS: 72100; 72131; 72202; 99283; 99284; A9270

== ENCOUNTER 2024-08-08 09:09 | Outpatient (CLI) | payer MEDICARE, SELFPAY ==
--- NOTE | 2024-08-08 10:43 | P.ANES_ITS ---
Anesthesia Charges Start Date/Time Anesthesia Start Date: 08/08/24 Anesthesia Start Time: 10:10 Stop Date/Time Anesthesia Stop Date: 08/08/24 Anesthesia Stop Time: 10:39 Summary Extremes of Age - Over 70 or under 1: DRYWALL APPLICATION SUPERVISOR Coding CPT Codes CPT Codes: ANES LWR INTST NDSC NOS - 82805 ([id number]) P3 - PATIENT W/SEVERE SYS DISEASE, QX - DRYWALL APPLICATION SUPERVISOR SVC W/ MD MED DIRECTION, QK - HARDWARE SUPPLIES SALES REPRESENTATIVE 2-4 CNCRNT ANES PROC Additional Codes: Summary - Extremes of Age - Over 70 or under 1: DRYWALL APPLICATION SUPERVISOR ([id number])
--- NOTE | 2024-08-08 10:43 | W.ANESCHARGE ---
Anesthesia Charges Start Date/Time Anesthesia Start Date: 08/08/24 Anesthesia Start Time: 10:10 Stop Date/Time Anesthesia Stop Date: 08/08/24 Anesthesia Stop Time: 10:39 Summary Extremes of Age - Over 70 or under 1: ROAD BOSS Coding CPT Codes CPT Codes: ANES LWR INTST NDSC NOS - 73911 ([id number]) P3 - PATIENT W/SEVERE SYS DISEASE, QX - ROAD BOSS SVC W/ MD MED DIRECTION, QK - CUSTOMS BROKER 2-4 CNCRNT ANES PROC Additional Codes: Summary - Extremes of Age - Over 70 or under 1: ROAD BOSS ([id number])
--- NOTE | 2024-08-08 13:02 | W.ANESCHARGE ---
Anesthesia Charges Start Date/Time Anesthesia Start Date: 08/08/24 Anesthesia Start Time: 10:10 Stop Date/Time Anesthesia Stop Date: 08/08/24 Anesthesia Stop Time: 10:39 Summary Extremes of Age - Over 70 or under 1: MDA Coding CPT Codes CPT Codes: ANES LWR INTST NDSC NOS - 56067 ([id number]) QK - PASTRY SUPERVISOR 2-4 CNCRNT ANES PROC, QX - SENIOR ELECTRICAL PROJECT MANAGER SVC W/ MD MED DIRECTION, P3 - PATIENT W/SEVERE SYS DISEASE Additional Codes: Summary - Extremes of Age - Over 70 or under 1: MDA ([id number])
== END 2024-08-08 09:10 | disposition home or self-care (01) ==
LOC: OP CLINIC 09:13
PROVIDERS: PCP Family Medicine; Visit Provider Internal Medicine Gastroenterology
DX: Z12.11 Encounter for screening for malignant neoplasm of colon (principal); Z86.0109 Personal history of other colon polyps; D12.8 Benign neoplasm of rectum
CPT/HCPCS: 00811; 45385; 88305; 99100; J2704

== ENCOUNTER 2024-08-12 11:04 | Emergency (ER) | payer MEDICARE, SELFPAY ==
[2024-08-12 11:16] VITALS: BP 152/85; PULSE 52; RESP 18; TEMP 36.9; O2SAT 96; BMI 28.6
--- NOTE | 2024-08-12 11:29 | ED.GENADULT ---
HPI - General Adult General Time Seen by Provider: 11:29 Date Seen: 08/12/24 Chief complaint: Constipation Stated complaint: stomach cramps Time Seen by Provider: 08/12/24 11:29 Source: patient and RN notes reviewed Mode of arrival: ambulatory Limitations: no limitations History of Present Illness HPI narrative: Mr. Samayoa is a very pleasant 78-year-old male with history of recent colonoscopy who comes to the emergency room with complaints of increasing abdominal pain and inability to pass stool. Patient noted an uneventful colonoscopy on August 08 at which time they did remove 1 very small polyp. He had 1 very small bowel movement nonbloody after that but no bowel movement since that day. He notes increasing abdominal size and tightness of his pants. He has not had any vomiting or nausea. He is showing pain to be in the upper aspect of his abdomen. He denies fevers or chills. He has had constipation in the past but has not been a chronic and ongoing problem. At home he did try a few senna tablets. He notes the pain to be cramping in nature. He does not feel like he is passing gas. Related Data Home Medications ?Medication ?Instructions ?Recorded ?Confirmed finasteride 5 mg tablet mg 12/07/21 04/10/22 metoprolol succinate 25 mg 25 mg PO 12/07/21 04/10/22 tablet,extended release 24 hr rosuvastatin 20 mg tablet 20 mg 12/07/21 04/10/22 Allergies Allergy/AdvReac Type Severity Reaction Status Date / Time atorvastatin (From Lipitor) Allergy Unknown Verified 08/12/24 12:42 citalopram Allergy Unknown Verified 08/12/24 12:42 Review of Systems Status of ROS: Reports: 10 or more systems reviewed and unremarkable except as noted in History and below Const: Denies: fever or chills ENMT: Denies: nasal congestion Cardio: Denies: chest pain, swelling of feet/ankles, lightheadedness or shortness of breath with exertion Resp: Denies: shortness of breath or cough GI: Reports: abdominal pain; Denies: nausea, vomiting, diarrhea or blood in stool : Denies: painful urination PFSH PFSH Social History Smoking Status: Former smoker What tobacco products do you use: cigarettes Smoking packs per day: 20 Smoking cigarettes per day: 400.0 Years smoked: 20 Smoking pack-years: 400.00 Smoking quit date/years: >15 years ago Do you use any of these nicotine containing products: None How often do you have a drink containing alcohol: 2-3 times a week How many standard drinks containing alcohol do you have on a typical day: 1 or 2 How often do you have six or more drinks on one occasion: Monthly AUDIT-C Alcohol total score: 5 Non-prescribed substance use: denies use service: No Exam Narrative: Exam Narrative: Patient is alert and oriented. Of increased discomfort. Slightly pale in appearance. External ears eyes nose clear. Neck is supple. Heart with regular rate and rhythm. Lungs are clear bilaterally. Abdomen is protruded ratna it is somewhat firm especially in the epigastric and left upper quadrants. Rectal exam shows no stool in the rectal vault. Lower extremities without edema. Able to ambulate without difficulty. Const: Vital Signs, click to edit/add: Vital Signs - 24 hr 08/12/24 11:16 08/12/24 13:18 08/12/24 15:51 Temperature 98.4 F 97.6 F 97.2 F L Pulse Rate [Left P ulse Oximeter] 52 L 48 L 53 L Respiratory Rate 18 18 18 Blood Pressure [Ri ght Upper Arm] 152/85 H 144/81 H 142/77 H Pulse Oximetry 96 94 94 Oxygen Delivery Me thod Room Air Room Air Room Air 08/12/24 17:52 Temperature 98.0 F Pulse Rate [Left P ulse Oximeter] 54 L Respiratory Rate 18 Blood Pressure [Ri ght Upper Arm] 170/97 H Pulse Oximetry 95 Oxygen Delivery Me thod Room Air Documenting provider has reviewed patient's vital signs: yes Course Course ED Course: Differential diagnosis includes but is not limited to constipation, bowel injury/bowel perforation, small-bowel obstruction. Will place IV. Toradol 15 mg IV for discomfort as I was look like to avoid the narcotics at this time. Plan on abdominal CT with contrast. 500 mL normal saline bolus for kidney protection. Will check CBC, basic, lactate as well. Reevaluation(s) Reevaluation #1: Patient noted to be remarkably better after Toradol. CT does show large bladder, possible bladder mass and bilateral hydro. No evidence of obvious obstruction. Postvoid residual 300 mL. I have spoken to patient about placement of a indwelling Bryant catheter as well as results of CT. Catheter successfully replaced and 200 mL of clear urine has been draining. Nursing staff notes upon 1st entry a large clot came out. Patient having discomfort and thus the balloon is deflated catheter advanced and balloon reinflated. Reevaluation #2: I was informed by nursing staff that no further urine has been drain. A bladder scan shows 480 mL of urine accumulated. Nursing staff has tried unsuccessfully to irrigate this catheter. I have asked him to remove it and they will put a [address] way irrigation in as patient is having blood draining from around the catheter. 1734-successful placement of catheter with continue bleeding from the penis. Asked them to remove catheter. Patient has received 1 g of IV Rocephin for UTI. We will need to find tertiary care for transfer and placement of suprapubic catheter. Patient would like us to try [place] or [facility] Consultation #1: I had the pleasure of speaking with Dr. Perez, on-call surgeon. She too is able to look at the CT and feels that the bowel is making a slow return to full function but does not see any emergent findings or evidence of an obstruction. She too has concerns regarding the large bladder and bilateral hydro. Vital Signs Vital signs: Initial Vital Signs Temperature 98.4 F 08/12/24 11:16 Temperature Source Temporal Artery Scan 08/12/24 11:16 Pulse Rate 52 L 08/12/24 11:16 Respiratory Rate 18 08/12/24 11:16 Blood Pressure 152/85 H 08/12/24 11:16 Blood Pressure Mean 107 H 08/12/24 11:16 Blood Pressure Position Sitting 08/12/24 11:16 Pulse Oximetry 96 08/12/24 11:16 Oxygen Delivery Method Room Air 08/12/24 11:16 Vital Signs Temperature 98.4 F 08/12/24 11:16 Pulse Rate 52 L 08/12/24 11:16 Respiratory Rate 18 08/12/24 11:16 Blood Pressure 152/85 H 08/12/24 11:16 Pulse Oximetry 96 08/12/24 11:16 Oxygen Delivery Method Room Air 08/12/24 11:16 Temperature 98.0 F 08/12/24 17:52 Pulse Rate 54 L 08/12/24 17:52 Respiratory Rate 18 08/12/24 17:52 Blood Pressure 170/97 H 08/12/24 17:52 Pulse Oximetry 95 08/12/24 17:52 Oxygen Delivery Method Room Air 08/12/24 17:52 Medications Administered Medications: Discontinued Medications Generic Name Dose Route Start Last Admin Trade Name Eboni PRN Reason Stop Dose Admin Sodium Chloride 500 mls @ 500 mls/hr 08/12/24 11:41 08/12/24 12:41 0.9 % Sodium Chloride 500 Ml IV 08/12/24 12:40 Infused .Q1H ONE Infusion Ceftriaxone Sodium 1 gm/ 100 mls @ 200 mls/hr 08/12/24 15:53 08/12/24 16:51 Sodium Chloride IVPB 08/12/24 15:54 Infused ONCE ONE Infusion Sodium Chloride 500 mls @ 500 mls/hr 08/12/24 15:53 08/12/24 17:57 0.9 % Sodium Chloride 500 Ml IV 08/12/24 16:52 Infused .Q1H ONE Infusion Ketorolac Tromethamine 15 mg 08/12/24 11:41 08/12/24 12:13 Ketorolac 15 Mg/Ml Inj IVP 08/12/24 11:42 15 mg ONCE ONE Administration Medical Decision Making MDM Narrative Medical decision making narrative: 1. Urinary retention-patient had retention of 300 mL urine after urinating. Appear to be a much larger accumulation of urine with bladder distention on CT. Catheter initially placed and urine drained however, now catheter is not working and we are unable to replace. Will need to transfer to larger facility for assistance in urological consult. 2. Bladder mass with bilateral hydro -noted on CT. Patient now tells me that he has had bleeding earlier in this week. 3. Abdominal distension-no evidence of bowel obstruction per CT and surgical consultation was done. 4. Disposition -transfer to outside facility for urological consultation. I have received acceptance of transfer to [place] [facility], Dr. Deng excepting. I am further expecting phone call from Urology. We have pushed up the CT to [facility]. Patient will be ground ALS ambulance as he may need pain medications and route to [facility]. I had a follow-up phone call with Dr. Nicholas, urology. I was able to speak to patient's friend Xiomara regarding need for follow-up with GI doctor Bobo to ensure he does also look at CT and that he has visualized area of concern in the rectum. She notes that she was afraid she would forget this and thus we are printing out discharge orders for her. Medical Records Medical records reviewed: Yes I reviewed the patient's medical records Lab Data Lab results reviewed: Yes I reviewed the patient's lab results Labs: Lab Results 08/12/24 08/12/24 Range/Units 11:50 11:58 WBC 6.88 (4.50-11.00) K/uL RBC 3.99 L (4.30-5.90) m/uL Hgb 13.5 (13.5-17.5) gm/dL Hct 40.0 (37.0-53.0) % MCV 100 (80-100) fL MCH 34 (26-34) pg MCHC 34 (32-36) gm/dL RDW Coeff of Jose 12.8 (11.5-15.5) % Plt Count 192 (140-440) K/uL Neut % (Auto) 67.8 (42.0-72.0) % Lymph % (Auto) 22.4 (20-44) % Antelope % (Auto) 7.6 (0.0-11.0) % Eos % (Auto) 1.7 (0.0-7.0) % Baso % (Auto) 0.4 (0.0-3.0) % Neut # (Auto) 4.66 (1.7-7.0) K/uL Lymph # (Auto) 1.54 (0.90-2.90) K/uL Antelope # (Auto) 0.50 (0.00-0.90) K/UL Eos # (Auto) 0.12 (0.00-0.50) K/uL Baso # (Auto) 0.03 (0.00-0.30) K/uL Abs Immat Gran (auto) 0.01 (0.00-0.30) K/uL Imm/Tot Granulo (auto) 0.1 % Sodium 140 (135-149) mmol/L Potassium 3.8 (3.6-5.1) mmol/L Chloride 104 (96-114) mmol/L Carbon Dioxide 30 (20-32) mmol/L Anion Gap 6 L (7-15) mEq/L BUN 11 (7-30) mg/dL Creatinine 0.8 (0.5-1.5) mg/dL Estimated Creat Clear 57.00 Estimated GFR 89 ml/min Glucose 103 (60-115) mg/dL Lactate 1.1 (0.5-1.9) mmol/L Calcium 9.0 (8.4-10.6) mg/dL Total Bilirubin 0.6 (0.1-1.5) mg/dL AST 29 (12-35) U/L ALT 17 (4-50) U/L Alkaline Phosphatase 83 (40-150) U/L Total Protein 7.6 (6.0-8.3) g/dL Albumin 4.3 (3.3-5.0) g/dL Urine Color Light yellow (Yellow) Urine Appearance Clear (Clear) Urine pH 5.5 (5.0-8.5) Ur Specific [place] <= 1.005 (1.000-1.030) Urine Protein Negative (Negative) Urine Glucose (UA) Negative (Negative) Urine Ketones Negative (Negative) Urine Blood 2+ A (Negative) Urine Nitrite Negative (Negative) Urine Bilirubin Negative (Negative) Urine Urobilinogen 0.2 (0.2-1.0) Ur Leukocyte Esterase 1+ A (Negative) Urine RBC 0-2 (0-2) Urine WBC 10-25 A (0-5) Ur Squamous Epith Cells Few (None-Few) Amorphous Sediment Few A (None) Urine Bacteria Few A (None) Imaging Data CT scan - abdomen: Attestation: I have reviewed the pertinent imaging results. Radiologist's impression: Lower chest: Very small hiatal hernia. Liver: Unremarkable. Normal in size and attenuation. No suspicious masses. Gallbladder and bile ducts: Gallbladder stones present. Otherwise unremarkable. Pancreas: Unremarkable. No mass or inflammation. Spleen: Unremarkable. Normal in size. No masses. Adrenal glands: Unremarkable. No nodules. Kidneys: Moderate to severe bilateral hydroureteronephrosis, slightly worse on the right. This appears to be due to a urinary bladder mass. GI tract: Ill-defined soft tissue prominence at the junction of the anus and rectum. Remainder of the GI tract and appendix are normal. No sign of bowel distention. Vasculature: Abdominal aorta is normal in caliber. Mesenteric arteries are patent. Lymph nodes: A few retroperitoneal lymph nodes are in the upper limits of normal in caliber. No other sign of lymphadenopathy. Peritoneum/Abdominal Wall: Unremarkable. No sign of mass or infiltration. No free air or significant free fluid. Pelvis: Ill-defined soft tissue mass in the posterior right lateral margin of the urinary bladder measures 5 x 3 cm on axial series 2, image 123 and 5.2 x 3.4 cm on coronal series 4, image 89. Bones: Unremarkable for age. IMPRESSION: 1. Nonspecific ill-defined soft tissue prominence at the junction of the rectum and anus. And neoplasm is possible but not definite. 2. Irregular soft tissue mass in the right posterolateral urinary bladder is a neoplasm unless proven otherwise. This appears to be having mass effect of the ureterovesical junctions resulting in bilateral hydroureteronephrosis. 3. A few retroperitoneal lymph nodes are in the upper limits of normal in caliber. 4. No other convincing evidence for acute or metastatic disease. 5. No sign of bowel distention or perforation. Discharge Plan Discharge Clinical Impression: Urinary retention, Bladder mass, Hydronephrosis, Abdominal distension Patient Disposition: Home, Self-Care Condition: Improved Additional Instructions: There is an area of swelling between the anus and the rectum. I would like Dr. Broussard to review the CT as he most recently did your colonoscopy. You will need to go to the [facility] to have this done. Prescriptions: No Action metoprolol succinate 25 mg tablet extended release 24 hr 25 mg PO finasteride 5 mg tablet rosuvastatin 20 mg tablet 20 mg Follow Up/Referrals: Osorio Galvan MD [Primary Care Provider] - Stand Alone Forms: [facility] Info Instructions
--- NOTE | 2024-08-12 11:41 | CRLHL7_ITS ---
For Patients: As a result of the Century Cures Act, medical imaging exams and procedure reports are released immediately into your electronic medical record. You may view this report before your referring provider. If you have questions, please contact your health care provider. INDICATION: Abdominal distention post colonoscopy. TECHNIQUE: CT abdomen and pelvis acquired with 92 cc Isovue 370 IV contrast. COMPARISON: None. FINDINGS: Lower chest: Very small hiatal hernia. Liver: Unremarkable. Normal in size and attenuation. No suspicious masses. Gallbladder and bile ducts: Gallbladder stones present. Otherwise unremarkable. Pancreas: Unremarkable. No mass or inflammation. Spleen: Unremarkable. Normal in size. No masses. Adrenal glands: Unremarkable. No nodules. Kidneys: Moderate to severe bilateral hydroureteronephrosis, slightly worse on the right. This appears to be due to a urinary bladder mass. GI tract: Ill-defined soft tissue prominence at the junction of the anus and rectum. Remainder of the GI tract and appendix are normal. No sign of bowel distention. Vasculature: Abdominal aorta is normal in caliber. Mesenteric arteries are patent. Lymph nodes: A few retroperitoneal lymph nodes are in the upper limits of normal in caliber. No other sign of lymphadenopathy. Peritoneum/Abdominal Wall: Unremarkable. No sign of mass or infiltration. No free air or significant free fluid. Pelvis: Ill-defined soft tissue mass in the posterior right lateral margin of the urinary bladder measures 5 x 3 cm on axial series 2, image 123 and 5.2 x 3.4 cm on coronal series 4, image 89. Bones: Unremarkable for age. IMPRESSION: 1. Nonspecific ill-defined soft tissue prominence at the junction of the rectum and anus. And neoplasm is possible but not definite. 2. Irregular soft tissue mass in the right posterolateral urinary bladder is a neoplasm unless proven otherwise. This appears to be having mass effect of the ureterovesical junctions resulting in bilateral hydroureteronephrosis. 3. A few retroperitoneal lymph nodes are in the upper limits of normal in caliber. 4. No other convincing evidence for acute or metastatic disease. 5. No sign of bowel distention or perforation. Please note that all CT scans at this facility use dose modulation, iterative reconstruction, and/or weight-based dosing when appropriate to reduce radiation dose to as low as reasonably achievable. Dictated by Elian Mckeon MD @ 08/12/2024 1:32:27 PM (Electronically Signed)
[2024-08-12 11:56] LABS: Appearance Urine Clear (Clear); Bilirubin Urine Negative (Negative); Blood Urine 2+ (Negative); Color Urine Light yellow (Yellow); Glucose Urine Negative (Negative); Ketones Urine Negative (Negative); Leukocyte Esterase Urine 1+ (Negative); Nitrite Urine Negative (Negative); Protein Urine Negative (Negative); Specific Gravity Urine <= 1.005 (1.000-1.030); Urobilinogen Urine 0.2 (0.2-1.0); pH Urine 5.5 (5.0-8.5)
[2024-08-12 12:06] LABS: Basophils Absolute Auto 0.03 K/uL (0.00-0.30); Basophils Percent Auto 0.4 % (0.0-3.0); Eosinophils Absolute Auto 0.12 K/uL (0.00-0.50); Eosinophils Percent Auto 1.7 % (0.0-7.0); Hemoglobin* 13.5 gm/dL (13.5-17.5); Immature Granulocytes Abs Auto 0.01 K/uL (0.00-0.30); Immature Granulocytes Pct Auto 0.1 %; Lactate Sepsis w/Reflex* 1.1 mmol/L (0.5-1.9); Lymphocytes Absolute Auto 1.54 K/uL (0.90-2.90); Lymphocytes Percent Auto 22.4 % (20-44); Mean Corpuscular HGB Conc 34 gm/dL (32-36); Mean Corpuscular Hemoglobin 34 pg (26-34); Mean Corpuscular Volume 100 fL (80-100); Monocytes Percent Auto 7.6 % (0.0-11.0); Neutrophils Absolute Auto 4.66 K/uL (1.7-7.0); Neutrophils Percent Auto 67.8 % (42.0-72.0); Platelet Count* 192 K/uL (140-440); RDW Coefficient of Variation % 12.8 % (11.5-15.5); Red Blood Count 3.99 m/uL (4.30-5.90); White Blood Count* 6.88 K/uL (4.50-11.00)
[2024-08-12] MEDS: KETOROLAC 15 MG/ML inj IVP (12:13)
[2024-08-12] MEDS: 0.9 % SODIUM CHLORIDE 500 ML 500 ML IV ×2 (12:14→16:17)
[2024-08-12 12:16] LABS: Slide Review Reflex No
[2024-08-12 12:20] LABS: Amorphous Sediment Urine Few; Bacteria Urine Few; RBC Urine 0-2 (0-2); Squamous Epithelial Cell Urine Few (None-Few)
[2024-08-12 12:29] LABS: Albumin* 4.3 g/dL (3.3-5.0); Chloride* 104 mmol/L (96-114); Sodium* 140 mmol/L (135-149)
[2024-08-12 12:30] LABS: Potassium* 3.8 mmol/L (3.6-5.1)
[2024-08-12 12:32] LABS: Alanine Aminotransferase* 17 U/L (4-50); Alkaline Phosphatase* 83 U/L (40-150); Anion Gap 6 mEq/L (7-15); Aspartate Amino Transferase* 29 U/L (12-35); Bilirubin Total* 0.6 mg/dL (0.1-1.5); Blood Urea Nitrogen* 11 mg/dL (7-30); Carbon Dioxide* 30 mmol/L (20-32); Creatinine* 0.8 mg/dL (0.5-1.5); Estimated Glomerular Filt Rate 89 ml/min; Total Protein* 7.6 g/dL (6.0-8.3)
[2024-08-12 12:33] LABS: Glucose* 103 mg/dL (60-115)
[2024-08-12 13:18] VITALS: BP 144/81; PULSE 48; RESP 18; TEMP 36.4; O2SAT 94
[2024-08-12 15:51] VITALS: BP 142/77; PULSE 53; RESP 18; TEMP 36.2; O2SAT 94
[2024-08-12] MEDS: cefTRIAXone 1 GM in 0.9 % SODIUM CHLORIDE Mini-bag 100 ML IVPB (16:18)
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
[2024-08-12 17:52] VITALS: BP 170/97; PULSE 54; RESP 18; TEMP 36.7; O2SAT 95
== END 2024-08-12 19:13 | disposition home or self-care (01) ==
PROVIDERS: Emergency Provider Family Medicine; PCP Family Medicine
DX: R33.9 Retention of urine, unspecified (principal); R10.9 Unspecified abdominal pain; K59.00 Constipation, unspecified; N32.9 Bladder disorder, unspecified; N13.30 Unspecified hydronephrosis; R14.0 Abdominal distension (gaseous)
CPT/HCPCS: 51702; 36415; 51798; 74177; 80053; 81001; 83605; 85025; 87086; 96365; 96375; 99284; 99285; J0696; J1885; J7030; Q9967

== ENCOUNTER 2024-08-12 18:54 | Outpatient (CLI) | payer MEDICARE, SELFPAY | END 2024-08-12 18:55 | disposition home or self-care (01) | LOC: AMB 08-13 14:06 | PROVIDERS: PCP Family Medicine; Visit Provider Emergency Medicine | DX: R19.09 Other intra-abdominal and pelvic swelling, mass and lump (principal); R33.9 Retention of urine, unspecified; R10.9 Unspecified abdominal pain | CPT/HCPCS: A0425; A0427 ==

== ENCOUNTER 2024-08-27 13:49 | Emergency (ER) | payer MEDICARE, SELFPAY ==
--- OUTSIDE RECORDS SUMMARY | 2024-08-16 07:30 | XMS_ITS | Encounter Summary ---
Author Organization [facility] Address [address] [place] [id number] Care Team Providers Care Line Assembler Name Role Phone Unavailable Primary Care Provider Unavailabl e Encounter Details Date Type Department Care Team (Late st Contact Info) Description 08/16/2024 7:30 AM CDT Lab Department of Urology in [place], [place] [address] [place] [phone] Callum Marcos M.D. [address] [place] [phone] Chanda Mckeon, L.P.N. [address] [place] [phone] Retention Urinary (Primary Dx) Social History Tobacco Use Types Packs/Day Years Used Date Smoking Tobacco: Former Smokeless Tobacco: Never Social Connection and Isolat ion Panel [NHANES] Answer Date Recorded In a typical week, how many times do you talk on the phone with family, friends, or neighbors? Twice a week 05/11/2020 How often do you get togethe r with friends or relatives? Once a week 05/11/2020 How often do you attend chur ch or jain services? Never 05/11/2020 Do you belong to any clubs o r organizations such as gnosticist groups, unions, fraternal or athletic groups, or school groups? Yes 05/11/2020 How often do you attend meet ings of the clubs or organizations you belong to? More than 4 times per year 05/11/2020 Are you , , di vorced, , never , or living with a partner? Living with partner 05/11/2020 AUDIT-C Answer Date Recorded Q1: How often do you have a drink containing alc ohol? 2-3 times a week 05/11/2020 Q2: How many drinks containi ng alcohol do you have on a typical day when you are drinking? 1 or 2 05/11/2020 Q3: How often do you have si x or more drinks on one occasion? Never 05/11/2020 Overall Financial Resource Strain (CARDIA) Answe r Date Recorded How hard is it for you to pa y for the very basics like food, housing, medical care, and heating? Not very hard 05/11/2020 [facility] of Occupat ional Health - Occupational Stress Questionnaire Answer Date Recorded Do you feel stress - tense, restless, nervous, or anxious, or unable to sleep at night because your mind is troubled all the time - these days? Not at all 05/11/2020 Exercise Vital Sign Answer Date Recorde d On average, how many days pe r week do you engage in moderate to strenuous exercise (like a brisk walk)? 0 days Minutes of Exercise per Session Not on file 05/11/2020 Hunger Vital Sign Answer Date Recorded Within the past 12 months, y ou worried that your food would run out before you got the money to buy more. Never true 05/11/19 21 Within the past 12 months, t he food you bought just didn't last and you didn't have money to get more. Never true 05/11/2020 PRAPARE - Transportation Answer Date Re corded In the past 12 months, has l ack of transportation kept you from medical appointments or from getting medications? No 04/28 In the past 12 months, has l ack of transportation kept you from meetings, work, or from getting things needed for daily living? No 05/11/2020 Nutrition Answer Date Recorded Nutrition: EVOO Fat Source Unknown 05/31 Nutrition: Servings of Fruits/Vegetables per Day Not on file 06/01/2023 Dental Answer Date Recorded Dental: Regular Dentist Unknown 06/01/19 24 Education Answer Date Recorded What is the highest level of school you have completed or the highest degree you have received? 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 - 08/16/2024 7:30 AM CDT CHIEF COMPLAINT Patient is here for specimen collection Specimen Collection Specimen type: Urine Specimen route: Catheter Patient tolerated procedure: Yes Specimen sent for: urinalysis Ayesha Mckeon L.P.N. documented in this encounter Plan of Treatment Upcoming Encounters Date Type Department Care Team (Late st Contact Info) Description 09/03/2024 9:45 AM CDT Appointment Department of Radiology, [facility], in [address] [phone] Shyam Musa M.D. [address] [place] [phone] 09/03/2024 2:30 PM CDT Procedure visit Department of Urology in [address] [phone] Shyam Musa M.D. [address] [place] [phone] 09/04/2024 10:00 AM CDT Telemedicine Department of Urology in [address] [phone] Callum Marcos M.D. [address] [place] [phone] documented as of this encounter Procedures Procedure Name Priority Date/Time Associated Diagnosis Comments OK OSMOLALITY ASSAY URINE Routine 08/16/2024 8:04 AM CDT DIPSTICK, U Routine 08/16/2024 8:04 AM CDT PH, RANDOM, U Routine 08/16/2024 8:04 AM CDT MICROSCOPIC MANUAL Routine 08/16/2024 8: 04 AM CDT URINALYSIS WITH MICROSCOPIC Routine 08/16/2024 8:04 AM CDT Retention Urinary documented in this encounter Results * (ABNORMAL) Dipstick, Urine (08/16/2024 8:04 AM CDT) Hemoglobin, QL, U Large(A) Negative 08/16/2024 9:04 AM CDT DTL Leukocyte Esterase, U Large(A) Negative 08/16/2024 9:04 AM CDT DTL Nitrite, U Negative Negative 08/16/2024 9:04 AM CDT DTL Ketone, U 40(A) Negative mg/dL 08/16/2024 9:04 AM CDT DTL Glucose, U 70(A) Negative mg/dL 08/16/2024 9:04 AM CDT DTL Urine 08/16/2024 8:04 AM CDT 08/16/2024 8:56 AM CDT us Soft Results Interface LAB URINE ORDERABLES Gabriella l Result [facility] [address] [place] [address], [facility] [address] [place] [address] * Osmolality, Urine (08/16/2024 8:04 AM CDT) Osmolality, U 539 150 - 1150 mOsm/kg 08/16/2024 9:25 AM CDT DTL Urine 08/16/2024 8:04 AM CDT 08/16/2024 8:56 AM CDT us Soft Results Interface LAB URINE ORDERABLES Gabriella l Result Performing Organization Address City/[facility]/ZIP Co de Phone Number [facility] [address] [place] [address] * pH, Random, Urine (08/16/2024 8:04 AM CDT) pH, Random, U 5.2 4.5 - 8.0 08/16/2024 9:25 AM CDT DTL Urine 08/16/2024 8:04 AM CDT 08/16/2024 8:56 AM CDT us Soft Results Interface LAB URINE ORDERABLES Gabriella l Result Performing Organization Address [facility] Co de Phone Number [facility] [address] [place] [address] * (ABNORMAL) Microscopic Manual (08/16/2024 8:04 AM CDT) Microscopy Abnormal 08/16/2024 9:31 AM CDT DTL RBC >100(A) <3 /hpf 08/16/2024 9:31 AM CDT DTL Dysmorphic RBC <25 <25 % 08/16/2024 9:31 AM CDT DTL WBC 41-50(A) /hpf 08/16/2024 9:31 AM CDT DTL Comment: ----REFERENCE VALUE---- <4 (Males) <11 (Females) Renal Epithelial Cells 1-3(A) /hpf 08/16/2024 9:31 AM CDT DTL Urine 08/16/2024 8:04 AM CDT 08/16/2024 8:56 AM CDT us Soft Results Interface LAB URINE ORDERABLES Gabriella l Result Performing Organization Address City/[facility]/ZIP Co de Phone Number [facility] [address] [place] [address] * (ABNORMAL) Urinalysis, with Microscopic: Urine, Indwelling Catheter (08/16/2024 8:04 AM CDT) Source Urine, Urine, Indwelling Catheter 08/16/2024 8:56 AM CDT DTL Color, U Red(A) 08/16/2024 8:56 AM CDT DTL Clarity, U Cloudy(A) 08/16/2024 8:56 AM CDT DTL Protein, U 611(H) <26 mg/dL 08/16/2024 10:57 AM CDT DTL Protein/Osmol ality 11.34(H) <0.42 ratio 08/16/2024 10:57 AM CDT DTL Predicted 24 HR Protein, U 9523(H) <229 mg/24 h 08/16/2024 10:57 AM CDT DTL Predicted Range 3023-22042 mg/24 h 08/16/2024 10:57 AM CDT DTL Comment Micro done on <2.5 mL 08/16/2024 9:24 AM CDT DTL Urine (Urine, Indwelling Catheter) 08/16/2024 8:04 AM CDT 08/16/2024 8:56 AM CDT us Callum Marcos M.D. LAB URINE ORDERABLES Final Result [facility] [address] [place] [address], [place] DTL [facility] [address] [place] [address] documented in this encounter Visit Diagnoses Diagnosis Retention Urinary- Primary documented in this encounter
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
--- OUTSIDE RECORDS SUMMARY | 2024-08-16 10:30 | XMS_ITS | Encounter Summary ---
Author Organization [facility] Address [address] [place] [address] Care Team Providers Care Video Player Mechanic Name Role Phone Unavailable Primary Care Provider Unavailabl e Encounter Details Date Type Department Care Team (Late st Contact Info) Description 08/16/2024 10:30 AM CDT Lab Department of Urology in [place], [place] [address] [place] [phone] Shyam Musa M.D. [address] [place] [phone] Mila Onofre [email or web address] [address] [place] [phone] Hematuria Social History Tobacco Use Types Packs/Day Years [...] often do you attend chur ch or pentecostal services? Never 05/11/2020 Do you belong to any clubs o r organizations such as restorationism groups, unions, fraternal or [...] care, and heating? 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 - 08/16/2024 10:30 AM CDT Specimen Collection Specimen type: urine cytology Specimen route: Catheter indwelling Patient tolerated procedure: Yes Mila Onofre R.N. documented in this encounter Plan of Treatment Upcoming Encounters Date Type Department Care Team (Late st Contact Info) Description 09/03/2024 9:45 AM CDT Appointment Department of Radiology, [facility], in [address] [phone] Shyam Musa M.D. [address] [place] [phone] 09/03/2024 2:30 PM CDT Procedure visit Department of Urology in [address] [phone] Shyam Musa M.D. [address] [place] [phone] 09/04/2024 10:00 AM CDT Telemedicine Department of Urology in [address] [phone] Callum Marcos M.D. [address] [place] [phone] documented as of this encounter Procedures Procedure Name Priority Date/Time Associated Diagnosis Comments CYTOLOGY NON-RPG DEVELOPER (SCHEDULED) Routine 08/16/2024 11:27 AM CDT Hematuria documented in this encounter Results * (ABNORMAL) Cytology Non-RPG DEVELOPER (Scheduled) (08/16/2024 11:27 AM CDT) (A) 2:52 [...] 7 AM CDT 08/16/2024 12:30 PM CDT us Shyam Musa M.D. LAB SURG PATH ORDERABLES Gabriella barnett Result [facility] [address] [place] [address], [email or web address]] DTL [address] [place] [address] documented in this encounter Visit Diagnoses Diagnosis Hematuria documented in this encounter
--- NOTE | 2024-08-27 | CRLHL7_ITS ---
For Patients: As a result of the Century Cures Act, medical imaging exams and procedure reports are released immediately into your electronic medical record. You may view this report before your referring provider. If you have questions, please contact your health care provider. INDICATION: Abdominal pain. TECHNIQUE: Multiplanar CT examination of the abdomen and pelvis was performed after the administration of 85 mL Isovue 370 intravenous contrast. COMPARISON: CT abdomen pelvis 08/12/2024. FINDINGS: Lower chest: No focal consolidation. Normal heart size. No pleural effusions or pneumothorax. Coronary arterial calcifications. Small hiatal hernia. Dependent atelectasis. Liver: Unremarkable. Gallbladder: Cholelithiasis. Biliary: Unremarkable. Pancreas: Within normal limits. Spleen: Unremarkable. Adrenal glands: Unremarkable. Renal/ureters/bladder: Normal in size and symmetrically enhancing. No obstructive uropathy. No hydronephrosis or obstructive urinary calculi. No suspicious renal masses. Severe bilateral hydroureteronephrosis due to the eccentric posterolateral bladder mass, grossly unchanged. The bladder is collapsed around a Bryant catheter balloon. Pelvis: Aside from the bladder mass, unremarkable. Gastrointestinal: Redemonstrated ill-defined soft tissue prominence of the anorectal junction. Otherwise, no bowel obstruction. Normal appendix. No significant colonic diverticulosis. Mild colonic stool burden. Vasculature: No aortic aneurysm. The portal vein remains patent. Severe atherosclerotic calcifications. Lymph nodes: Prominent retroperitoneal lymph nodes are subcentimeter in size, indeterminate. Peritoneum: Trace pelvic free fluid. No drainable fluid collections. Abdominal wall/soft tissues: Unremarkable. Postsurgical changes of the left inguinal region. Bones: No acute osseous abnormalities. Stable cortical irregularity of the right iliac crest, appears well-corticated, possibly sequela of prior trauma. Postsurgical changes from a prior posterior fusion of L2-L4. No suspicious lytic or blastic lesions. IMPRESSION: 1. Severe hydroureteronephrosis due to the obstructing bladder mass, grossly unchanged. Indeterminate subcentimeter retroperitoneal lymph nodes do not meet size criteria for pathologic lymphadenopathy but are suspicious for metastatic disease. 2. Redemonstrated ill-defined soft tissue thickening of the anorectal junction, anal neoplasm is not excluded. 3. Otherwise, no other acute abdominopelvic findings. No bowel obstruction. Please note that all CT scans at this facility use dose modulation, iterative reconstruction, and/or weight-based dosing when appropriate to reduce radiation dose to as low as reasonably achievable. Dictated by Javed Navarro MD @ 08/27/2024 4:38:34 PM (Electronically Signed)
--- OUTSIDE RECORDS SUMMARY | 2024-08-27 13:51 | XMS_ITS | Clinical Summary ---
Author Organization [employer] Address [address], [place] [address] Care Team Providers Care Astronomy Instructor Name Role Phone Osorio Galvan MD Primary Care Provider [phone] Source Comments You are receiving this document as you are listed as the primary care provider,follow-up provider, or the patient has been referred to you for consultation.This is in compliance with the Medicare and[facility] Hospital[facility] EHR Incentive Program,which states Providers who transition their patient to another setting of careor provider of care or refers their patient to another provider of care shouldprovide summary care record for each transition of care or referral. Volley Allergies Active Allergy Reactions Criticality Noted Date [...] shows severe OM1 (small) and distal RCA CRUMB PACKER. We will proceed with medical therapy for [...] complete this topic Insurance MEDICARE Care Teams Astronomy Instructor Relationship Specialty Start Date End Date Osorio Galvan [place] [address] PCP - General Family Practice 12/14/21
--- OUTSIDE RECORDS SUMMARY | 2024-08-27 13:51 | XMS_ITS | Encounter Summary ---
Author Organization [facility] Address [address] [place] [address] Care Team Providers Care Automatic Buffer Name Role Phone Unavailable Primary Care Provider Unavailabl e Reason for Referral * Outpatient (Routine) - Authorized Specialty Diagnoses / Procedures Referred By Keiko latif Referred To Contact Urology Shyam Musa M.D. [address] [place] [phone] Phone: tel: fax: Callum Marcos M.D. [address] [place] [phone] Phone: tel: fax: Referral ID Status Reason Start Date Expiration Date V isits Requested Visits Authorized [id number] Authorized 08/21/2024 02/20/2026 1 1 Encounter Details Date Type Department Care Team (Late st Contact Info) Description 08/21/2024 Orders Only Department of Urology in [place], [place] [address] [place] [phone] Shyam Musa M.D. [address] [place] [phone] Social History Tobacco Use Types Packs/Day Years [...] often do you attend chur ch or anabaptist services? Never 05/11/2020 Do you belong to any clubs o r organizations such as caodaism groups, unions, fraternal or athletic groups, or [...] care, and heating? 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 [address] [place] [phone] 09/03/2024 2:30 PM CDT Procedure visit Department of Urology in [address] [phone] Shyam Musa M.D. [address] [place] [phone] 09/04/2024 10:00 AM CDT Telemedicine Department of Urology in [address] [phone] Callum Marcos M.D. [address] [place] [phone] Scheduled Referrals Name Type Priority Associated Diagnoses Orde r Schedule Urology office visit (clinic) Outpatient Referral Routine Expected: 08/23/2024, Expires: 11/21/2025 documented as of this encounter Visit Diagnoses Not on filedocumented in this encounter
--- OUTSIDE RECORDS SUMMARY | 2024-08-27 13:51 | XMS_ITS | Clinical Summary ---
Author Organization [facility] Address [address] [place] [address] Care Team Providers Care Electron Beam Photo Mask Technician Name Role Phone Unavailable Primary Care Provider Unavailabl e Source Comments Patient records contain information from all sites at [facility]. For routine questions regarding patient records, call [phone] during business hours, M-F 8:00 AM - 5:00 PM Central Time. Record requests for emergency care only can be directed to [phone] at any time.[facility] Allergies Active Allergy Reactions Criticality Noted Date Comments Atorvastatin Myalgia 05/06/2014 Citalopram Tinnitus 01/16/2020 Medications * This document contains information received from the source organization and may not represent a complete record from that organization. cholecalciferol , vitamin D3, 25 mcg (1,000 Unit) tablet Take 1,000 Units by mouth daily. 7 Active valACYclovir (VALTREX) 1000 mg tablet Take 1 g by mouth as needed. 0 Active zinc chelated 50 mg tablet tablet Take 50 mg by mouth daily. 0 Active rosuvastatin (CRESTOR) 20 mg tablet Take 20 mg by mouth at bedtime as needed. Use as directed by primary care provider. 0 Active pyridoxine, vitamin B6, (VITAMIN B6) 25 mg tablet Take 25 mg by mouth daily. 0 Active nitroglycerin (NITROSTAT) 0.[address] 0.4 mg under the tongue every 5 (five) minutes as needed for chest pain (Max 3 doses). If no relief 5 minutes after the 1st dose, seek medical attention immediately. May take up to 2 additional doses if needed. 0 Active metoprolol succinate (TOPROL-XL) 25 mg 24 hr tablet Take 25 mg by mouth daily. 0 Active ferrous sulfate 325 mg (65 mg iron) DR tablet Take 325 mg by mouth daily. 1 Active finasteride (PROSCAR) 5 mg tablet Take 1 tablet (5 mg total) by mouth daily. 30 tablet 1 Active sennosides-docu sate sodium (SENOKOT-S) 8.6-50 mg per tablet Take 1 tablet by mouth 2 (two) times a day. [address] tablet Take 1 tablet (81 mg total) by mouth daily. 90 tablet 3 1 Active apixaban (ELIQUIS) 2.5 mg tablet Take 2.5 mg by mouth. 1 Active VITAMIN B COMPLEX ORAL Take 1 tablet by mouth. 1 Active sennosides (SENOKOT) 8.6 mg tablet Take 8.6 mg by mouth. 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 08/16/2024 10:30 AM CDT Lab Department of Urology in [place], [place] [address] [place] [address] Shyam Musa M.D. Mila Onofre R.N. Hematuria 08/16/2024 9:30 AM CDT Comprehensive Visit Department of Urology in [place], [place] [address] [place] [address] Callum Marcos M.D. Hematuria (Primary Dx) 08/16/2024 7:30 AM CDT Lab Department of Urology in [place], [place] [address] [place] [address] Callum Marcos M.D. Chanda Mckeon L.P.N. Retention Urinary (Primary Dx) 08/14/2024 Orders Only Department of Urology in [place], [place] [address] [place] [address] [facility], ProviderMD Retention Urinary from Last 3 Months Immunizations Immunization Administration Dates Next Due Influenza, Unspecified 01/02/2013 [...] any clubs o r organizations such as quaker groups, unions, fraternal or athletic groups, or [...] and heating? Not very hard 05/11/2020 [facility] [place] of Occupat ional Health - Occupational Stress [...] have received? 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 Gender Identity Not on file Sexual Orientation Not on file Last Filed Vital Signs Vital Sign Reading Time Taken Comments Blood Pressure 114/62 07/15/2020 11:15 AM CDT Pulse 46 07/15/2020 11:15 AM CDT Temperature 36.7 C (98.1 F) 04/15/2020 3:28 PM METALWORKING SPECIALIST Respiratory Rate 16 04/15/2020 3:28 PM METALWORKING SPECIALIST Oxygen Saturation 95% 04/15/2020 3:28 PM METALWORKING SPECIALIST Inhaled Oxygen Concentration - - Weight 82.9 kg (182 lb 12.2 oz) 021 11:12 AM CDT Height 168.9 cm (5' 6.5) 07/15/2020 11 :12 AM CDT Body Mass Index 29.06 07/15/2020 11:12 AM CDT Plan of Treatment Upcoming Encounters Date Type Department Care Team (Late st Contact Info) Description 09/03/2024 9:45 AM CDT Appointment Department of Radiology, [facility], in [place], [place] [address] [place] [phone] Shyam Musa M.D. [address] [place] [phone] 09/03/2024 2:30 PM CDT Procedure visit Department of Urology in [place], [place] [address] [place] [phone] Shyam Musa M.D. [address] [place] [phone] 09/04/2024 10:00 AM CDT Telemedicine Department of Urology in [place], [place] [address] [place] [phone] Callum Marcos M.D. [address] [place] [phone] Health Maintenance Due Date Last Done Comments RSV vaccine - (32-36 weeks) or 60+ years (1 - 1-dose 75+ series) 10/27/2018 COVID-19 Vaccine ( season) 2023 05/31/2023, 01/11/2023, 08/12/2022, Additional history exists Depression Screening (Annual PHQ-2) 03/28/2024 Fall Risk Screen (Annual) 03/28/2024 DTaP,Tdap,and Td Vaccines (3 - Td or Tdap) 04/10/2032 04/10/2022, 07/28/2012 Pneumococcal vaccine (50+ years) Completed 03/27/2018, 05/24/2016 Zoster Vaccines Completed 07/05/2018, 04/19/2018 Abdominal Aortic Aneurysm (AAA) Screen Discontinued 04/11/2020 Influenza Vaccine Completed 12/09/2023, , 12/28/2021, Additional history exists IPV Vaccines Aged Out No longer eligi ble based on patient's age to complete this topic Procedures Procedure Name Priority Date/Time Associated Diagnosis Comments CYTOLOGY NON-PERSONNEL ARBITRATOR (SCHEDULED) Routine 08/16/2024 11:27 AM CDT Hematuria DIPSTICK, U Routine 08/16/2024 8:04 AM CDT WI OSMOLALITY ASSAY URINE Routine 08/16/2024 8:04 AM CDT PH, RANDOM, U Routine 08/16/2024 8:04 AM CDT MICROSCOPIC MANUAL Routine 08/16/2024 8: 04 AM CDT URINALYSIS WITH MICROSCOPIC Routine 08/16/2024 8:04 AM CDT Retention Urinary OUTSIDE CT BODY Routine 08/12/2024 12:[address] ABDOMEN PELVIS WITH IV CONTRAST RAD - Semiurgent (Fast; most ED patients; some inpatients) 04/11/2020 9:32 PM METALWORKING SPECIALIST from Last 3 Months or Most Recently Relevant to Health Maintenance Results * (ABNORMAL) Cytology Non-PERSONNEL ARBITRATOR (Scheduled) (08/16/2024 11:27 AM CDT) (A) 2:52 [...] Musa M.D. LAB SURG PATH ORDERABLES Gabriella l Result Performing Organization Address City/[facility]/ZIP Co de Phone Number [address] [address], [address] [address] * Osmolality, Urine (08/16/2024 8:04 AM CDT) Pathologist [facility] Osmolality, U 539 150 - 1150 mOsm/kg 08/16/2024 9:25 AM CDT DTL Urine 08/16/2024 8:04 AM CDT 08/16/2024 8:56 AM CDT Soft Results Interface LAB URINE ORDERABLES Gabriella l Result Performing Organization Address [facility] Co de Phone Number [facility] [address] [place] [address], [address] [address] * (ABNORMAL) Dipstick, Urine (08/16/2024 8:04 AM [...] ORDERABLES Gabriella l Result Performing Organization Address [facility] Co de Phone Number [facility] [address] 200 [place] [address] * pH, Random, Urine (08/16/2024 8:04 AM CDT) pH, Random, U 5.2 4.5 - 8.0 08/16/2024 9:25 AM CDT DTL Urine 08/16/2024 8:04 AM CDT 08/16/2024 8:56 AM CDT us Soft Results Interface LAB URINE ORDERABLES Gabriella l Result Performing Organization Address [facility] de Phone Number [facility] 200 [place] [address] * (ABNORMAL) Microscopic Manual (08/16/2024 8:04 AM [...] ORDERABLES Gabriella l Result Performing Organization Address [facility] Co de Phone Number [facility] [address] [place] [address], [facility] [address] [place] [address] * (ABNORMAL) Urinalysis, with Microscopic: Urine, Indwelling [...] 08/16/2024 10:57 AM CDT DTL Predicted Range [id number] mg/24 h 08/16/2024 10:57 AM CDT DTL Comment Micro done on <2.5 mL 08/16/2024 9:24 AM CDT DTL Urine (Urine, Indwelling Catheter) 08/16/2024 8:04 AM CDT 08/16/2024 8:56 AM CDT us Callum Marcos M.D. LAB URINE ORDERABLES Final Result Performing Organization Address [facility]/ZIP Co de Phone Number [facility] [address] [place] [address], [facility] [address] [place] [address] * Outside CT Body (08/12/2024 12:45 PM CDT) Narrative MARIYA - 08/21/2024 9:49 AM CDT This order has been created and auto-finalized to support the import of outside images. If available, original interpretation can be found on the Media Tab in Chart Review, in Document Viewer, as an image in InfinityView or as an Addendum. If a re-interpretation or overread is required please follow defined workflow. us Provider Not In System IMG CT PROCEDURES Final R esult II NA * CT Abdomen Pelvis with IV Contrast (04/11/2020 9:32 PM METALWORKING SPECIALIST) Anatomical Region Laterality Modality Abdomen, Pelvis, Abdominal R ST LOS, Abdominal ARZ LOS, Abdominal FLA LOS N/A Computed Tomograp hy, Computed Tomography 04/11/2020 9:41 PM METALWORKING SPECIALIST Impressions 04/11/2020 10:07 PM METALWORKING SPECIALIST 1. No evidence of recent or active hemorrhage within the abdomen or pelvis. 2. Bladder wall thickening and adjacent stranding and mild ureterectasis and periureteral stranding of the lower ureters is nonspecific but can be seen in the setting of cystitis with early ascending infection. 3. Acute pulmonary embolism in the left lower lobe. Narrative 04/11/2020 10:07 PM METALWORKING SPECIALIST EXAM: CT ABDOMEN PELVIS WITH IV CONTRAST COMPARISON: None available. FINDINGS: No evidence of recent or active hemorrhage within the abdomen or pelvis. Normal appearance of the prostate on all phases of contrast. Cholelithiasis. Liver, spleen, pancreas, and adrenal glands are unremarkable. Bryant catheter within the bladder. Bladder wall thickening with mild stranding along the bladder. Mild lower ureterectasis bilaterally with faint periureteral stranding about the mid and lower ureters. No hydronephrosis. No renal or urinary calculi. Bilateral symmetric nephrograms. Normal caliber of the small and large bowel without evidence of obstruction. Mixed calcified and noncalcified atherosclerotic plaque involving the abdominal aorta and iliac arteries. The celiac and mesenteric arteries are patent. Chronic appearing erosive changes along the lateral aspect of the right iliac crest. Spinal fusion hardware lumbar spine. Advanced degenerative changes of the lumbar spine with compression of the L3 vertebral body. Acute segmental and subsegmental pulmonary emboli in the left lower lung. Findings were discussed with Dr. Fritz ([phone]) at 10:06 PM on 04/11/2020.. Procedure Note Raina, Spencer Palmer M.D. - 04/11/2020 EXAM: CT ABDOMEN PELVIS WITH IV CONTRAST COMPARISON: None available. FINDINGS: No evidence of recent or active hemorrhage within the abdomenor pelvis. Normal appearance of the prostate on all phases of contrast. Cholelithiasis. Liver, spleen, pancreas, and adrenal glands areunremarkable. Bryant catheter within the bladder. Bladder wall thickening with mildstranding along the bladder. Mild lower ureterectasis bilaterally with faintperiureteral stranding about the mid and lower ureters. No hydronephrosis. No renalor urinary calculi. Bilateral symmetric nephrograms. Normal caliber of thesmall and large bowel without evidence of obstruction. Mixed calcified and noncalcified atherosclerotic plaque involving the abdominal aorta andiliac arteries. The celiac and mesenteric arteries are patent. Chronicappearing erosive changes along the lateral aspect of the right iliac crest. Spinalfusion hardware lumbar spine. Advanced degenerative changes of the lumbar spinewith compression of the L3 vertebral body. Acute segmental and subsegmental pulmonary emboli in the left lowerlung. Findings were discussed with Dr. Frizt ([phone]) at 10:06 PM on04/11/2020.. IMPRESSION: 1. No evidence of recent or active hemorrhage within the abdomen orpelvis. 2. Bladder wall thickening and adjacent stranding and mild ureterectasisand periureteral stranding of the lower ureters is nonspecific but can be seenin the setting of cystitis with early ascending infection. 3. Acute pulmonary embolism in the left lower lobe. Braulio Regan M.D., M.P.H. IMG CT PROCEDURES F inal Result from Last 3 Months or Most Recently Relevant to Health Maintenance Insurance MEDICARE A[employer] Advance Directives For more information, please contact: [phone] * Full Code (Latest Code Status on File) Date Activated Date Inactivated Comments 04/12/2020 1:07 PM 04/15/2020 6:07 PM Question Answer Comments Full Code: Discussed 04/12/2020
--- OUTSIDE RECORDS SUMMARY | 2024-08-27 13:51 | XMS_ITS | Encounter Summary ---
Author Organization [facility] Address [address] [place] [address] Care Team Providers Care Ic Engineer Name Role Phone Unavailable Primary Care Provider Unavailabl e Encounter Details Date Type Department Care Team (Late st Contact Info) Description 08/14/2024 Orders Only Department of Urology in [place], [place] [address] [place] [address] [facility], ProviderMD [place] Urinary Social History Tobacco Use Types Packs/Day Years [...] often do you attend chur ch or mandaeism services? Never 05/11/2020 Do you belong to any clubs o r organizations such as islam groups, unions, fraternal or athletic groups, or [...] care, and heating? 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 [address] [place] [phone] 09/03/2024 2:30 PM CDT Procedure visit Department of Urology in [place], [place] [address] [place] [phone] Shyam Musa M.D. [address] [place] [phone] 09/04/2024 10:00 AM CDT Telemedicine Department of Urology in [place], [place] [address] [place] [phone] Callum Marcos M.D. [address] [place] [phone] documented as of this encounter Results * (ABNORMAL) Urinalysis, with Microscopic: Urine, Indwelling [...] 08/16/2024 10:57 AM CDT DTL Predicted Range [id number] mg/24 h 08/16/2024 10:57 AM CDT DTL Comment Micro done on <2.5 mL 08/16/2024 9:24 AM CDT DTL Urine (Urine, Indwelling Catheter) 08/16/2024 8:04 AM CDT 08/16/2024 8:56 AM CDT us Callum Marcos M.D. LAB URINE ORDERABLES Final Result [place] [address] [place] [address], [facility] DTL [facility] [address] [place] [address] documented in this encounter Visit Diagnoses Diagnosis Retention Urinary documented in this encounter
--- OUTSIDE RECORDS SUMMARY | 2024-08-27 13:52 | XMS_ITS | Clinical Summary ---
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 For 5 days at first sign of a flare. 30 Tablet 3 023 Active polyethylene glycol-electrolyt e 236-22.74-6.74 -5.86 gram suspensionIndicat ions:Encounter for screening colonoscopy Drink 2 liters the day before the procedure and 2 liters 6 hours prior to procedure. 4000 mL 025 Active aspirin 81 mg enteric coated tabletIndications :Coronary artery disease involving round valley heart without angina pectoris, unspecified vessel or lesion type,Ascending aorta dilatation,ASHD (arteriosclerotic heart disease),Hyperlip idemia, unspecified hyperlipidemia type Take 1 Tablet (81 mg) by mouth once daily with a meal. 025 Active nitroglycerin 0.4 mg sublingual tabletIndications :Coronary artery disease involving round valley heart without angina pectoris, unspecified vessel or lesion type Place 1 Tablet (0.4 mg) under the tongue every 5 minutes if needed for Chest Pain. Up to 3 tablets in 15 minutes. 20 Tablet 3 025 Active rosuvastatin 20 mg tabletIndications :Cerebrovascular accident (CVA), unspecified mechanism (HC) Take 1 Tablet (20 mg) by mouth at bedtime. 90 Tablet 3 025 Active metoprolol succinate 25 mg Sustained-Release tabletIndications :Ascending aorta dilation,Angina pectoris Take 1 Tablet (25 mg) by mouth once daily. 90 Tablet 3 025 Active finasteride 5 mg tabletIndications :BPH without urinary obstruction Take 1 Tablet (5 mg) by mouth once daily in the morning. 90 Tablet 3 Active cyanocobalamin 1,000 mcg/mL injection Inject 1,000 mcg intramuscular every 4 weeks. 025 2025 Active cholecalciferol (VITAMIN D) 1,000 unit tabletIndications :Ischemic stroke (HC),Ascending aorta dilation Take 1 tablet by mouth once daily. 0 017 2024 Discontinued (Pharmacist change per medication history (E-cancel not sent)) Coenzyme Q10 (CO Q-10) 400 mg cap Take 400 mg by mouth once daily. 0 019 2024 Discontinued (Pharmacist change per medication history (E-cancel not sent)) ferrous sulfate 325 mg delayed release tabletIndications :Anemia due to acute blood loss Take 1 tablet by mouth once daily with a meal. 45 tablet 021 2024 Discontinued (*IP Discontinued ) sennosides (Senna Laxative) 8.6 mg tablet Take 1 Tablet (8.6 mg) by mouth once daily. 0 021 2024 Discontinued (Pharmacist change per medication history (E-cancel not sent)) sildenafil citrate 100 mg tabletIndications :Other male erectile dysfunction Take 1 Tablet (100 mg) by mouth once daily if needed for Erectile Dysfunction. Take 30min to 4 hours before sexual activity. Max 100mg/24hr. 12 Tablet 6 025 2024 Discontinued (*Patient states no longer taking) Hospital, Clinic, or Other Facility Administered Medication Ordered Dose Route Frequency Start Date End Date Status cyanocobalamin (VITAMIN B12) 1,000 mcg/mL injection 1,000 mcgIndications:B12 deficiency,Macrocy tic anemia 1000 mcg IM Q 4 WEEKS (28 DAYS) 06/30/2024 Discontinued Active Problems Problem Noted Date Diagnosed Date Hydronephrosis, bilateral 08/13/2024 Bladder mass 08/13/2024 Urinary retention 08/13/2024 Major depressive disorder, recurrent, mild 07/03 Angina pectoris 07/03/2021 Urethral false passage 03/28/2020 Mild cognitive impairment 03/08/2020 Overview (03/08/2020): 2019 CAD (coronary artery disease) 03/07/2020 Overview (03/07/2020): 01/2020 Per Cardiology note from [facility]: CTCA shows severe OM1 (small) 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 We will proceed with medical therapy for [...] Encounters Date Type Department Care Team Description 08/24/2024 11:20 AM CDT Office Visit [facility] [address] [place] [address] Osorio Galvan MD Hospital F/U (AN - bladder/kidney obstruction/Has catheter placed); Memory Loss (Daughter asking about memory concerns); Referral (Home care referral) 08/24/2024 Travel 08/22/2024 Telephone [facility] [address] [place] [address] Osorio Galvan MD Questions (Request ) 08/22/2024 Telephone [facility] [address] [place] [address] Osorio Galvan MD Appointment (Request ) 08/15/2024 Patient Outreach [facility] [address] [place] [address] More Watson RN Primary RN Care Management; Hospital F/U (LACE 56) 08/12/2024 7:45 PM CDT - 08/14/2024 5:36 PM CDT Hospital Encounter [facility] [address] [place] [address] Yvette Duffy MD [facility] Emmanuel DO Shettigar, Amrith, MD Discharge Disposition: Home Self Care 08/12/2024 Orders Only [facility] Scanner 1 scan: (1-Ord) [facility], CT ABDOMEN PELVIS W CON, 08/12/2024 08/12/2024 Travel 08/09/2024 Lab Requisition [facility] [phone] Loyd Broussard MD 08/08/2024 9:15 AM CDT Office Visit [facility] [address] [address] [facility] [place] [address] Loyd Broussard MD 07/27/2024 10:05 AM CDT Office Visit [facility] [address] [facility] [place] [address] Osorio Galvan MD Medicare ANNUAL (subsequent) Visit (80 years); Preoperative Exam (Colonoscopy 08/08) 07/27/2024 Travel 07/18/2024 Refill [facility] [address] [facility] [place] [address] Osorio Galvan MD Refill Request (Finasteride) 07/17/2024 9:00 AM CDT Office Visit [facility] [address] [facility] [place] [address] Aydee Hernandez PA Follow Up (Follow up CAD-yearly visit ) 07/17/[address] [place] [address] Aydee Hernandez PA Medication Management 07/17/2024 Travel 07/05/2024 9:15 AM CDT Nurse/Clinic Staff Only [facility] [address] [place] [address] Immunization/Injec tion (VITAMIN B-12 INJECTION ) 07/05/2024 Travel 06/29/2024 Telephone [facility] [address] [place] [address] Osorio Galvan MD Appointment Reminder 06/29/2024 Telephone [facility] [address] [place] [address] Daisha Osorio, DO Results 06/27/2024 1:00 PM CDT Office Visit [facility] [address] [facility] [place] [address] Daisha Osorio DO Fatigue; Throat Pain/problem 06/27/2024 Telephone [facility] [address] [place] [address] Loyd Broussard MD Pre Procedure (COLONSCOPY) 06/27/2024 Travel 06/26/2024 Nurse Triage [facility] [address] [place] [address] Osorio Galvan MD Dizziness (Lightheaded) 06/23/2024 Refill [facility] [address] [place] [address] Osorio Galvan MD Refill Request (Metoprolol Succinate) from Last 3 Months Immunizations Immunization Administration Dates Next Due Amb Influenza, Inact (High-d ose) (Flu Clinic Only) 12/26/2015,12/26/2015,01/15/2014 COVID-19 VACCINE SPIKEVAX (M ODERNA 50MCG/0.5ML) 12YO+ PFS 05/31/2023,01/11/2023 COVID-19 vaccine (Pfizer-Bio NTech 30mcg/0.3mL) 12YO+ BIVALENT PF, MDV 08/12/2022,12/28/2021 COVID-19 vaccine (Pfizer-Bio NTech 30mcg/0.3mL) 12YO+ LESLI-SUCROSE PF, MDV 06/30/2021 COVID-19 vaccine (Pfizer-Bio NTech 30mcg/0.3mL) PF, MDV 12/24/2020,06/12/2020,05/22/2020 Influenza, High-dose [...] or isolated from those around you? 0 08/13/2024 Alcohol Use Answer Date Recorded How often [...] you are able to buy more? 1 08/13/2024 Transportation Needs Answer Date Record ed Does lack of transportation keep you from medica l appointments? 1 08/13/2024 Does lack of transportation keep you from work, meetings or getting things that you need? 1 08/13/2024 Housing Stability Answer Date Recorded What is your housing situation today? 1 08/13/2024 Interpersonal Safety Answer Date Record ed Are you being hit, kicked, p ushed or yelled at (see row info)? No 08/12/2024 Interpersonal Safety Abuse 12 - 18 Not on file 08/12/2024 Interpersonal Safety Ambulatory Vulnerability No t on file 08/12/2024 Utilities Answer Date Recorded Do you have trouble paying f or utilities (for example, heat, electricity, water, phone)? 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 Gender Identity Not on file Sexual Orientation Not on file Obstetrics History Last Filed Vital Signs Vital Sign Reading Time Taken Comments Blood Pressure 127/71 08/24/2024 11:31 AM CDT Pulse 53 08/24/2024 11:31 AM CDT Temperature 36.7 C (98 F) 08/24/2024 11:31 AM CDT Respiratory Rate 16 08/14/2024 5:14 PM CDT Oxygen Saturation 94% 08/24/2024 11:31 AM CDT Inhaled Oxygen Concentration - - Weight 86 kg (189 lb 9.6 oz) 08/24/2024 11:31 AM CDT Height 172.7 cm (5' 8) 08/12/2024 7:48 PM CDT Body Mass Index 28.83 08/12/2024 7:48 PM CDT Plan of Treatment Upcoming Encounters Date Type Department Care Team (Late st Contact Info) Description 09/10/2024 9:15 AM CDT Nurse/Clinic Staff Only [facility] [address] [place] [address] 10/11/2024 9:15 AM CDT Nurse/Clinic Staff Only [facility] [address] [place] [address] Health Maintenance Due Date Last Done Comments RSV vaccine for adults or (1 - 1-dose 75+ series) 10/27/2018 BMI (ht and wt on same day) for age 18+ 07/27/2025 07/27/2024, 07/18/2023, 05/02/2023, Additional history exists Depression screening for age 12+ 07/27/2025 07/27/2024, 02/16/2023, 12/28/2021, Additional history exists Medicare Wellness for age 65+ 07/28/2025 07/27/2024, 02/16/2023, 12/28/2021, Additional history exists Tetanus booster 04/10/2032 04/10/2022, 07/28/2012 Pneumococcal series for age 50+ Completed 03/27/2018, 05/24/2016 Zoster (shingles) series for age 50+ Completed 07/05/2018, 04/19/2018 Tdap Completed 04/10/2022, 07/28/2012 Influenza Vaccine Completed 12/09/2023, , 12/28/2021, Additional history exists COVID-19 vaccine series Completed 07/19/19, 12/09/2023, 05/31/2023, Additional history exists Hepatitis B series for 19+ Aged Out N o longer eligible based on patient's age to complete this topic Medical Devices Implanted Type Area Petal Shaper Hand Device Identifier Shelf Expiration Date Model / Serial / Lot Tissue Pericardium 0.8x8cm Xenosure - [id number] Implanted:Qty: 1 on 03/10/2020 by Isidro Smiley MD at [facility] Right: Carotid Artery [employer] 07/23/2025 0.8P8# / / [id number] Procedures Procedure Name Priority Date/Time Associated Diagnosis Comments BASIC METABOLIC PANEL Routine 08/24/2024 12:52 PM CDT Hydronephrosis, bilateral Urinary retention HEMOGLOBIN Early AM 08/14/2024 7:10 AM CDT BASIC METABOLIC PANEL Early AM 08/14/2024 7:10 AM CDT US RENAL AND BLADDER COMPLETE Routine 08/13/2024 3:42 PM CDT PSA TOTAL Today 08/13/2024 7:27 AM CDT BASIC METABOLIC PANEL Early AM 08/13/2024 7:27 AM CDT CBC W PLT NO DIFF Early AM 08/13/2024 7:2 7 AM CDT SCAN-CT INTERPRETATION 12:00 AM CDT LAB TRACKING EVENT Routine 08/08/2024 10 :36 AM CDT PATH TISSUE EXAM Routine 08/08/2024 10:3 6 AM CDT COLONOSCOPY SCREENING Routine 08/08/2024 12:00 [...] 1:58 PM CDT Coronary artery disease involving round valley heart without angina pectoris, unspecified vessel or lesion type Other iron deficiency anemia FERRITIN Routine 06/27/2024 1:58 PM CDT Coronary artery disease involving round valley heart without angina pectoris, unspecified vessel or lesion type Other iron deficiency anemia CBC WITH AUTO DIFFERENTIAL Routine 06/27/2024 1:58 PM CDT Coronary artery disease involving round valley heart without angina pectoris, unspecified vessel or lesion type Other iron deficiency anemia LIPID PANEL W REFLEX MEASURED LDL Routine 06/27/2024 1:58 PM CDT Hyperlipidemia LDL goal < 100 BASIC METABOLIC PANEL Routine 06/27/2024 1:58 PM CDT Ascending aorta dilation Angina pectoris from Last 3 Months Results * (ABNORMAL) BASIC METABOLIC PANEL (08/24/2024 12:52 PM CDT) Only the most recent of4 resultswithin the time period is included. GLUCOSE 77 65 - 99 mg/dL [facility] Comment: Fasting reference interval UREA NITROGEN (BUN) 13 7 - 25 mg/dL [facility] CREATININE 0.92 0.70 - 1.22 mg/dL [facility] EGFR 84 > OR = 60 mL/min/1. 73m2 [facility] BUN/CREATININE RATIO SEE NOTE: 6 - 22 (calc) [facility] Comment: Not Reported: BUN and Creatinine are within reference range. SODIUM 141 135 - 146 mmol/L [facility] POTASSIUM 4.4 3.5 - 5.3 mmol/L [facility] CHLORIDE 105 98 - 110 mmol/L [facility] CARBON DIOXIDE 30 20 - 32 mmol/L [facility] ELECTROLYTE BALANCE 6(L) 7 - 17 mmol/L (calc) [facility] CALCIUM 8.8 8.6 - 10.3 mg/dL [facility] Blood BLOOD SPECIMEN / Unknown 08/24/2024 12:52 PM CDT 08/24/2024 12:52 PM CDT Osorio Galvan MD CHEMISTRY Final Resu lt [facility] [address] [address], [facility] [address] * (ABNORMAL) Hemoglobin AM (08/14/2024 7:10 AM CDT) [facility] HEMOGLOBIN 11.8(L) 13.5 - 17.5 g/dL 08/14/2024 7:24 AM CDT [facility] MCV 98 80 - 100 fL 08/14/2024 7:24 AM CDT [facility] Blood BLOOD SPECIMEN / Unknown Venipuncture / Unknown 08/14/2024 7:10 AM CDT 08/14/2024 7:16 AM CDT Polo Huizar MD HEMATOLOGY Final Result [facility] [address] [place] [address], * US RENAL AND BLADDER COMPLETE (08/13/2024 3:42 PM CDT) Anatomical Region Laterality Modality Abdomen, AORTA, KIDNEYS Ultrasou nd 08/14/2024 3:40 AM CDT Impressions 08/14/2024 3:40 AM CDT Moderate bilateral hydronephrosis and proximal hydroureter, slightly more prominent on the right, grossly similar when compared to the previous CT examination, allowing for differences in technique. Dictated by Braulio Blackmon MD @ 08/14/2024 3:40:20 AM (Electronically Signed) Narrative 08/14/2024 3:40 AM CDT For Patients: As a result of the Cures Act, medical imaging exams and procedure reports are released immediately into your electronic medical record. You may view this report before your referring provider. If you have questions, please contact your health care provider. INDICATION: Re-evaluate bilateral hydronephrosis. TECHNIQUE: Ultrasound renal and bladder complete. Bain-scale and color Doppler sonographic images were acquired of the kidneys and urinary bladder. COMPARISON: CT abdomen pelvis 08/12/2024. FINDINGS: Right kidney: 10.0 x 5.2 x 6.0 cm. Normal echotexture and cortex. Moderate hydronephrosis and proximal hydroureter. No definite calculi identified. No suspicious renal lesion. Left kidney: 11.1 x 6.0 x 5.0 cm. Normal echotexture and cortex. Moderate hydronephrosis and proximal hydroureter. No definite calculi identified. No suspicious renal lesion. Bladder: Collapsed around a Bryant catheter with bladder measuring 5.8 x 3.2 x 5.9 cm. Procedure Note Braulio Blackmon MD - 08/14/2024 For Patients: As a result of the Cures Act, medical imagingexams and procedure reports are released immediately into your electronicmedical record. You may view this report before your referring provider.If you have questions, please contact your health care provider. INDICATION: Re-evaluate bilateral hydronephrosis. TECHNIQUE: Ultrasound renal and bladder complete. Bain-scale and color Dopplersonographic images were acquired of the kidneys and urinary bladder. COMPARISON: CT abdomen pelvis 08/12/2024. FINDINGS: Right kidney: 10.0 x 5.2 x 6.0 cm. Normal echotexture and cortex.Moderate hydronephrosis and proximal hydroureter. No definite calculiidentified. No suspicious renal lesion. Left kidney: 11.1 x 6.0 x 5.0 cm. Normal echotexture and cortex.Moderate hydronephrosis and proximal hydroureter. No definite calculiidentified. No suspicious renal lesion. Bladder: Collapsed around a Bryant catheter with bladder measuring 5.8 x3.2 x 5.9 cm. IMPRESSION: Moderate bilateral hydronephrosis and proximal hydroureter, slightly moreprominent on the right, grossly similar when compared to the previous CTexamination, allowing for differences in technique. Dictated by Braulio Blackmon MD @ 08/14/2024 3:40:20 AM (Electronically Signed) us Annabella Sofia MERCER Final Resu lt * (ABNORMAL) CBC W PLT NO DIFF (08/13/2024 7:27 AM CDT) WHITE BLOOD COUNT 6.3 4.5 - 11.0 thou/cu mm 08/13/2024 7:56 AM CDT [facility] RED BLOOD COUNT 3.45(L) 4.30 - 5.90 mil/cu mm 08/13/2024 7:56 AM CDT [facility] HEMOGLOBIN 11.6(L) 13.5 - 17.5 g/dL 08/13/2024 7:56 AM CDT [facility] HEMATOCRIT 34.0(L) 37.0 - 53.0 % 08/13/2024 7:56 AM CDT [facility] MCV 99 80 - 100 fL 08/13/2024 7:56 AM CDT [facility] MCH 33.6 26.0 - 34.0 pg 08/13/2024 7:56 AM CDT [facility] MCHC 34.1 32.0 - 36.0 g/dL 08/13/2024 7:56 AM CDT [facility] RDW 12.8 11.5 - 15.5 % 08/13/2024 7:56 AM CDT [facility] PLATELET COUNT 157 140 - 440 thou/cu mm 08/13/2024 7:56 AM CDT [facility] MPV 9.6 6.5 - 11.0 fL 08/13/2024 7:56 AM CDT [facility] NRBC 0.0 % 08/13/2024 7:56 AM CDT [facility] ABS NRBC 0.0 thou /cu mm 08/13/2024 7:56 AM CDT [facility] Blood BLOOD SPECIMEN / Unknown Venipuncture / Unknown 08/13/2024 7:27 AM CDT 08/13/2024 7:48 AM CDT us Meli Emmanuel DO HEMATOLOGY Gabriella l Result [facility] [address] [place] [address], * PSA TOTAL (08/13/2024 7:27 AM CDT) PSA TOTAL 0.40 <4.00 ng/mL 08/13/2024 8:37 AM CDT [facility] Blood BLOOD SPECIMEN / Unknown Venipuncture / Unknown 08/13/2024 7:27 AM CDT 08/13/2024 7:48 AM CDT Narrative [facility] - 08/13/2024 8:37 AM CDT The test method changed on 09/21/2022. If this test has been used for serial monitoring, rebaselining is recommended. Rebaselining consists of 2 measurements, collected 3-6 weeks apart. The Samantha Elecsys total PSA assay is an electrochemiluminescence immunoassay ECLIA performed on the Samantha Ed e immunoassay analyzers. Values obtained with different assay methods may be different and cannot be used interchangeably. us Meliradha Emmanuel CHEMISTRY Gabriella l Result Performing Organization Address City/[facility]/ZIP Co de Phone Number [facility] [address] [place] [address], * SCAN-CT INTERPRETATION (08/12/2024 12:00 AM CDT) Anatomical Region Laterality Modality Other us Scanner OTHER Final Result * LAB TRACKING EVENT (08/08/2024 10:36 AM CDT) Other (Other) Client Collect / Unknown 08/08/2024 10:36 AM CDT 08/09/2024 7:01 AM CDT Loyd Broussard MD LAB BILL ONLY Final Res ult Performing Organization Address [facility] Co de Phone Number [facility] [address] [place] [address], [place] * PATH TISSUE EXAM (08/08/2024 10:36 AM CDT) Case Report Pathology Report Case: [id number] Authorizing Provider: Loyd Broussard MD Collected: 08/08/2024 1036 Ordering Location: [facility] Received: 08/09/2024 0923 Pathologist: Shivam Nicole MD Specimen: Rectal Biopsy 08/13/2024 1:34 PM CDT [facility] Final Diagnosis A) RECTUM, POLYPECTOMY: 1. Hyperplastic polyp 08/13/2024 1:34 PM CDT [facility] at 1334 CDT Clinical Information Surveillance colonoscopy Colonoscopy findings: Single rectal polyp, completely removed. 08/13/2024 1:34 PM CDT [facility] Gross Description A) Received in formalin is a abraham mucosal fragment measuring 6 mm in greatest dimension, which is entirely submitted in one cassette. It is labeled with the patient's name and designated rectum. Ava Lucia 08/09/2024 1:07 PM 08/13/2024 1:34 PM CDT [facility] Microscopic Description The final diagnosis is based on microscopic examination of appropriate sections of all specimens. 08/13/2024 1:34 PM CDT [facility] Additional Information Interpreted at [facility] - [address], [place] [address] 08/13/2024 1:34 PM CDT [facility] Other (Rectal Biopsy) 08/08/2024 10:36 AM CDT 08/09/2024 9:23 AM CDT Loyd Broussard MD PATHOLOGY/CYTOLOGY Final Result [facility] [address] [place] [address], * COLONOSCOPY SCREENING (08/08/2024 12:00 AM CDT) Loyd Broussard MD GI PROCEDURE ORD Edited R esult - Final * METHYLMALONIC ACID BLOOD (06/27/2024 1:58 PM CDT) METHYLMALONIC ACID 224 85 - 423 nmol/L [facility], Comment: Serum methylmalonic acid (MMA) levels are [...] neural tube defects and intrauterine growth restriction. [facility] utilized Multi-Modal Decomposition (MMD) analysis to establish first and second trimester-specific MMA reference intervals in , as given below: MMA, First trimester (<13 wks gestation): 58-167 nmol/L MMA, Second trimester (13-23 wks gestation): 63-241 nmol/L This test was developed and its analytical performance characteristics have been determined by [facility]. It has not been cleared or approved by the FDA. This assay has been validated pursuant to the CLIA regulations and is used for clinical purposes. Blood BLOOD SPECIMEN / Unknown 06/27/2024 1:58 PM CDT 06/28/2024 12:05 PM CDT us Daisha Osorio DO SEND OUTS Final Resul t [facility] [address] [place] [address], [facility] [facility], [address] [place] [address] * LIPID PANEL W REFLEX MEASURED LDL (06/27/2024 1:58 PM CDT) CHOLESTEROL, TOTAL 129 <200 mg/dL [facility] HDL CHOLESTEROL 53 > OR = 40 mg/dL [facility] TRIGLYCERIDES 56 <150 mg/dL [facility] LDL-CHOLESTEROL 62 mg/dL (calc) [facility] Comment: Reference range: <100 Desirable range <100 mg/dL for primary prevention; <70 mg/dL for patients with CHD or diabetic patients with > or = 2 CHD risk factors. LDL-C is now calculated using the Loyd-Karis calculation, which is a validated novel method providing better accuracy than the Friedewald equation in the estimation of LDL-C. Loyd BOLAND et al. CONCHA. 2013;310(19): 6114-3544 (http://education.Col[employer] Heart [employer]ve.[employer]faq/LWD800) CHOL/HDLC RATIO 2.4 <5.0 (calc) [facility] NON HDL CHOLESTEROL 76 <130 mg/dL (calc) [facility] Comment: For patients with diabetes plus 1 major ASCVD risk factor, treating to a non-HDL-C goal of <100 mg/dL (LDL-C of <70 mg/dL) is considered a therapeutic option. Blood BLOOD SPECIMEN / Unknown 06/27/2024 1:58 PM CDT 06/27/2024 1:59 PM CDT us Osorio Galvan MD CHEMISTRY Final Resu lt Performing Organization Address [facility]/ZIP Co de Phone Number [facility] [address] [place] [address], [place] [phone] [facility] [address] [place] [address] * (ABNORMAL) TSH (06/27/2024 1:58 PM CDT) TSH 0.26(L) 0.40 - 4.50 mIU/L [facility] Blood BLOOD SPECIMEN / Unknown 06/27/2024 1:58 PM CDT 06/27/2024 1:59 PM CDT us Daisha Osorio DO CHEMISTRY Final Resul t Performing Organization Address [facility] de Phone Number [facility] [address] [address], [place] [phone] [facility] [address] [place] [address] * (ABNORMAL) IRON PLUS IRON BINDING CAP [...] CHEMISTRY Final Resul t Performing Organization Address [facility]/ZIP Co de Phone Number [employer] [address] [address], [place] [phone] [facility] [address] [place] [address] * (ABNORMAL) CBC AND DIFFERENTIAL (06/27/2024 1:58 PM CDT) [facility] WHITE BLOOD CELL COUNT 4.6 3.8 - [...] CDT 06/27/2024 1:59 PM CDT us Daisha Bryanta Detert DO HEMATOLOGY Final Resul t [facility] [address] [place] [address], [place] [phone] [facility] [address] [place] [address] * FOLIC ACID (06/27/2024 1:58 PM CDT) FOLATE, SERUM 12.1 ng/mL [facility] Comment: Reference Range Low: <3.4 Borderline: 3.4-5.4 Normal: >5.4 Blood BLOOD SPECIMEN / Unknown 06/27/2024 1:58 PM CDT 06/28/2024 12:05 PM CDT us Daisha Charles Detert DO CHEMISTRY Final Resul t Performing Organization Address [facility]/ZIP Co de Phone Number [facility] [address] [place] [address], [place] [phone] [facility] [address] [place] [address] * FERRITIN (06/27/2024 1:58 PM CDT) FERRITIN 117 24 - 380 ng/mL [facility] Blood BLOOD SPECIMEN / Unknown 06/27/2024 1:58 PM CDT 06/27/2024 1:59 PM CDT us Daisha Araceli Detert DO CHEMISTRY Final Resul t [facility] [address] [facility] [place] [address], [place] [phone] [facility] [address] [place] [address] * VITAMIN B12 (06/27/2024 1:58 PM CDT) VITAMIN B12 256 200 - 1,100 pg/mL [facility] Comment: Please Note: Although the reference range [...] PM CDT 06/28/2024 12:05 PM CDT Daisha Patelt DO CHEMISTRY Final Resul t Performing Organization Address City/State/[facility] Co de Phone Number [facility] [address] [place] [address], [facility] [address] [place] [address] from Last 3 Months Insurance MEDICARE PB ONLY [facility] PB ONLY AARP HB ONLY MEDICARE PART B HB ONLY MEDICARE PART A HB ONLY Advance Directives * Full Code (Latest Code Status on File) Date Activated Date Inactivated Comments 08/13/2024 12:33 AM 08/14/2024 7:47 PM Question Answer Comments Code Status Discussion: Reviewed Preferences * Full Code Date Activated Date Inactivated Comments 03/29/2020 3:27 PM 03/31/2020 2:34 PM Question Answer Comments Code Status Discussion: Discussed * Full Code Date Activated Date Inactivated Comments 03/28/2020 12:49 PM 03/28/2020 4:29 PM Question Answer Comments Code Status Discussion: Not Discussed * Full Code Date Activated Date Inactivated Comments 03/07/2020 11:51 AM 03/16/2020 7:28 PM Question Answer Comments Code Status Discussion: Discussed Care Teams Video Game Producer Relationship Specialty Start Date End Date Osorio Galvan MD [address] [place] [address] PCP - General Family Practice 07/20/12
[2024-08-27 14:06] VITALS: BP 144/76; PULSE 61; RESP 18; TEMP 36.7; O2SAT 96; BMI 25.8
--- NOTE | 2024-08-27 15:12 | ED_ITS ---
HPI - Male Genitourinary General Date Seen: 08/27/24 Chief complaint: Urogenital Problems, Male Stated complaint: Blood in Urine into Catheter Time Seen by Provider: 08/27/24 14:31 Source: patient Mode of arrival: ambulatory Limitations: no limitations History of Present Illness HPI Narrative: Patient is an 78-year-old male presenting to the emergency department for hematuria. He was seen in this hospital 2 weeks ago and was transferred to [place] for hematuria and a bladder mass. There he was eventually transferred to [facility] since he has got previous procedures through them. Had a Bryant placed down and [facility] and was discharged home. Is scheduled to see an urology in a couple days from now and will eventually have a biopsy of the bladder mass. Initially was having pink tinged urine but noticed today the urine was dark red bloody and some clots were passed. He did not noticed any decrease drainage from the Bryant. [place] slightly lightheaded but never felt like he was going to pass out. Was concerned about the bleeding so came in to be evaluated. Has not noticed any fevers, chills, chest pain, shortness of breath, abdominal pain, headache, weakness COVID of this. You will be usually. Related Data Home Medications ?Medication ?Instructions ?Recorded ?Confirmed finasteride 5 mg tablet mg 12/07/21 04/10/22 metoprolol succinate 25 mg 25 mg PO 12/07/21 04/10/22 tablet,extended release 24 hr rosuvastatin 20 mg tablet 20 mg 12/07/21 04/10/22 Allergies Allergy/AdvReac Type Severity Reaction Status Date / Time atorvastatin (From Lipitor) Allergy Unknown Verified 08/27/24 15:58 citalopram Allergy Unknown Verified 08/27/24 15:58 Review of Systems Status of ROS: Reports: 10 or more systems reviewed and unremarkable except as noted in History and below PFSH PFSH Social History Smoking Status: Former smoker What tobacco products do you use: cigarettes Smoking packs per day: 20 Smoking cigarettes per day: 400.0 Years smoked: 20 Smoking pack-years: 400.00 Smoking quit date/years: >15 years ago Do you use any of these nicotine containing products: None How often do you have a drink containing alcohol: 2-3 times a week How many standard drinks containing alcohol do you have on a typical day: 1 or 2 How often do you have six or more drinks on one occasion: Monthly AUDIT-C Alcohol total score: 5 Non-prescribed substance use: denies use service: No Exam Narrative: Exam Narrative: Const: Well-nourished, Well-developed, in no distress Eyes: PERRL, no conjunctival injection, and symmetrical lids HENT: Atraumatic external nose and ears. Moist mucous membranes. Neck: Symmetric, trachea midline, No thyromegaly. CVS: RRR, No murmurs or gallops. Peripheral pulses 2+ and equal in all extremities RESP: Unlabored respiratory effort. Clear to auscultation bilaterally. GI: Mild right lower quadrant tenderness, Nondistended, No rebound or guarding. MSK:Extremities w/o deformity, Normal Active ROM Skin: Warm, Dry. No rashes or lesions. Neuro: Normal Muscle tone, No focal neurological deficits. Psych: Awake, Alert, & Oriented x3. Appropriate mood and affect. Const: Vital Signs, click to edit/add: Vital Signs - 24 hr 08/27/24 14:06 Temperature 98.0 F Pulse Rate [Pulse Oximeter] 61 Respiratory Rate 18 Blood Pressure [Ri ght Upper Arm] 144/76 H Pulse Oximetry 96 Oxygen Delivery Me thod Room Air Course Vital Signs Vital signs: Initial Vital Signs Temperature 98.0 F 08/27/24 14:06 Temperature Source Temporal Artery Scan 08/27/24 14:06 Pulse Rate 61 08/27/24 14:06 Respiratory Rate 18 08/27/24 14:06 Blood Pressure 144/76 H 08/27/24 14:06 Blood Pressure Mean 98 08/27/24 14:06 Blood Pressure Position Sitting 08/27/24 14:06 Pulse Oximetry 96 08/27/24 14:06 Oxygen Delivery Method Room Air 08/27/24 14:06 Vital Signs Temperature 98.0 F 08/27/24 14:06 Pulse Rate 61 08/27/24 14:06 Respiratory Rate 18 08/27/24 14:06 Blood Pressure 144/76 H 08/27/24 14:06 Pulse Oximetry 96 08/27/24 14:06 Oxygen Delivery Method Room Air 08/27/24 14:06 Temperature 98.0 F 08/27/24 14:06 Pulse Rate 61 08/27/24 14:06 Respiratory Rate 18 08/27/24 14:06 Blood Pressure 144/76 H 08/27/24 14:06 Pulse Oximetry 96 08/27/24 14:06 Oxygen Delivery Method Room Air 08/27/24 14:06 MDM - Male Genitourinary MDM Narrative Medical decision making narrative: Patient is an 78-year-old male presenting to the emergency department for concern of hematuria. The hematuria seems having previous but does have a known bladder mass. He has had some mild lightheadedness otherwise is doing well. His vital signs are stable. No signs of hemodynamic collapse. On my exam he did have some right lower quadrant pain that he did not notice prior to this exam. He is painful at McBurney's point or do some mild concern for associated appendicitis. Considering everything I do think go do CT scan with IV contrast for better evaluation. Also do BMP and CBC. I do not believe it is beneficial to do a urinalysis at this time as we really know he has blood in his urine and this Bryant has been in for a couple weeks unlikely already colonized. He does have follow-up with Urology in a couple days and if they want to do a urinalysis the that time they can. His CBC does show his hemoglobin is down to 10.8. It was 13.5 on 08/12 but in epic it shows his hemoglobin was 11.8 on 08/14 so is not too much lower compared to that. I do not believe he is heading towards hemorrhagic shock and I do not believe he needs any blood transfusions. CT scan shows severe hydroureteronephrosis due to the obstructing bladder mass appears similar previous CT scans. Urology is already aware of this and his kidney function is normal. I do believe he is safe for discharge. I spoke to him about this and they are agreeable to this plan. They do a follow-up with Urology coming up soon. Lab Data Labs: Lab Results 08/27/24 08/27/24 Range/Units 14:50 15:09 WBC 5.38 (4.50-11.00) K/uL RBC 3.21 L (4.30-5.90) m/uL Hgb 10.8 L (13.5-17.5) gm/dL Hct 32.1 L (37.0-53.0) % MCV 100 (80-100) fL MCH 34 (26-34) pg MCHC 34 (32-36) gm/dL RDW Coeff of Jose 13.1 (11.5-15.5) % Plt Count 202 (140-440) K/uL Neut % (Auto) 58.0 (42.0-72.0) % Lymph % (Auto) 31.6 (20-44) % Sampson % (Auto) 7.4 (0.0-11.0) % Eos % (Auto) 2.2 (0.0-7.0) % Baso % (Auto) 0.6 (0.0-3.0) % Neut # (Auto) 3.12 (1.7-7.0) K/uL Lymph # (Auto) 1.70 (0.90-2.90) K/uL Sampson # (Auto) 0.40 (0.00-0.90) K/UL Eos # (Auto) 0.12 (0.00-0.50) K/uL Baso # (Auto) 0.03 (0.00-0.30) K/uL Abs Immat Gran (auto) 0.01 (0.00-0.30) K/uL Imm/Tot Granulo (auto) 0.2 % Sodium 140 (135-149) mmol/L Potassium 4.1 (3.6-5.1) mmol/L Chloride 105 (96-114) mmol/L Carbon Dioxide 28 (20-32) mmol/L Anion Gap 7 (7-15) mEq/L BUN 18 (7-30) mg/dL Creatinine 0.8 (0.5-1.5) mg/dL Estimated Creat Clear 58.92 Estimated GFR 89 ml/min Glucose 95 (60-115) mg/dL Calcium 8.6 (8.4-10.6) mg/dL POC Creatinine 1.0 (0.6-1.3) mg/dl Imaging Data CT scan abdomen pelvis: Attestation: I have reviewed the pertinent imaging results. Radiologist's impression: 1. Severe hydroureteronephrosis due to the obstructing bladder mass, grossly unchanged. Indeterminate subcentimeter retroperitoneal lymph nodes do not meet size criteria for pathologic lymphadenopathy but are suspicious for metastatic disease. 2. Redemonstrated ill-defined soft tissue thickening of the anorectal junction, anal neoplasm is not excluded. 3. Otherwise, no other acute abdominopelvic findings. No bowel obstruction. Please note that all CT scans at this facility use dose modulation, iterative reconstruction, and/or weight-based dosing when appropriate to reduce radiation dose to as low as reasonably achievable. Dictated by Javed Navarro MD @ 08/27/2024 4:38:34 PM Discharge Plan Discharge Clinical Impression: Bladder mass Hematuria Qualifiers: Hematuria type: gross Qualified Code(s): R31.0 - Gross hematuria Patient Disposition: Home, Self-Care Condition: Stable Instructions: Hematuria (ED), Bladder Biopsy (DC) Additional Instructions: Make sure to have close follow-up with your urologist. If you develop worsening lightheadedness or other concerning symptoms return for re-evaluation. Your hemoglobin is down slightly from 3 weeks ago and at this time does not meet crit eria for needing a blood transfusion. If the Bryant stops working it may have been blocked by a blood clot and you should try and flush should. Nursing staff will show you how this is done. You also have an ill-defined soft tissue thickening of the anorectal junction. This should be follow-up outpatient Prescriptions: No Action metoprolol succinate 25 mg tablet extended release 24 hr 25 mg PO finasteride 5 mg tablet rosuvastatin 20 mg tablet 20 mg Follow Up/Referrals: Osorio Galvan MD [Primary Care Provider, Family Practice] Stand Alone Forms: [employer] Info Instructions
[2024-08-27 15:20] LABS: Basophils Absolute Auto 0.03 K/uL (0.00-0.30); Basophils Percent Auto 0.6 % (0.0-3.0); Eosinophils Absolute Auto 0.12 K/uL (0.00-0.50); Eosinophils Percent Auto 2.2 % (0.0-7.0); Hematocrit 32.1 % (37.0-53.0); Hemoglobin* 10.8 gm/dL (13.5-17.5); Immature Granulocytes Abs Auto 0.01 K/uL (0.00-0.30); Immature Granulocytes Pct Auto 0.2 %; Lymphocytes Percent Auto 31.6 % (20-44); Mean Corpuscular HGB Conc 34 gm/dL (32-36); Mean Corpuscular Hemoglobin 34 pg (26-34); Mean Corpuscular Volume 100 fL (80-100); Monocytes Percent Auto 7.4 % (0.0-11.0); Neutrophils Absolute Auto 3.12 K/uL (1.7-7.0); Platelet Count* 202 K/uL (140-440); RDW Coefficient of Variation % 13.1 % (11.5-15.5); Red Blood Count 3.21 m/uL (4.30-5.90); White Blood Count* 5.38 K/uL (4.50-11.00)
[2024-08-27 15:24] LABS: Slide Review Reflex No
[2024-08-27 15:29] LABS: Chloride* 105 mmol/L (96-114); Potassium* 4.1 mmol/L (3.6-5.1); Sodium* 140 mmol/L (135-149)
[2024-08-27 15:32] LABS: Anion Gap 7 mEq/L (7-15); Blood Urea Nitrogen* 18 mg/dL (7-30); Calcium* 8.6 mg/dL (8.4-10.6); Carbon Dioxide* 28 mmol/L (20-32); Creatinine* 0.8 mg/dL (0.5-1.5); Est. Creatinine Clearance* 58.92; Estimated Glomerular Filt Rate 89 ml/min; Glucose* 95 mg/dL (60-115)
--- NOTE | 2024-08-27 17:39 | ED.NURSE ---
Patient catheter issues addressed by nurse. Tape gil removed. Patient was provided with a leg band for catheter gil. Education provided for patient on how to flush his catheter. Patients catheter bag was emptied prior to his departure, 1200 cc emptied.
== END 2024-08-27 17:51 | disposition home or self-care (01) ==
PROVIDERS: Emergency Provider Student in an Organized Health Care Education/Training Program; PCP Family Medicine
DX: R31.0 Gross hematuria (principal); N32.9 Bladder disorder, unspecified
CPT/HCPCS: 36415; 74177; 80048; 82565; 85025; 99284; 99285; Q9967

== ENCOUNTER 2024-10-23 15:03 | Emergency (ER) | payer MEDICARE, SELFPAY ==
--- OUTSIDE RECORDS SUMMARY | 2024-09-27 15:15 | XMS_ITS | Encounter Summary ---
Author Organization [facility] Address [address] [place] [address] Care Team Providers Care Construction Operations Manager Name Role Phone Elsewhere, Pcp Primary Care Provider Unavailabl e Encounter Details Date Type Department Care Team (Latest Contact Info) Description 09/27/2024 3:15 PM CDT Clinical Communication Virtual Review in [place], [place] [address] [place] [address] Social History Tobacco Use Types Packs/Day Years Used Date Smoking Tobacco: Former Smokeless Tobacco: Never Alcohol Use Standard Drinks/Week Comments Yes 6 (1 standard drink = 0.6 oz pur e alcohol) [facility] Utilities Answer Date Recorded In the past 12 months has e electric, gas, oil, or water company threatened to shut off services in your home? No 09/04/2024 Hunger Vital Sign Answer Date Recorded Within the past 12 months, y ou worried that your food would run out before you got the money to buy more. Never true 09/05/19 25 Within the past 12 months, t he food you bought just didn't last and you didn't have money to get more. Never true 09/04/2024 PRAPARE - Transportation Answer Date Re corded In the past 12 months, has l ack of transportation kept you from medical appointments or from getting medications? No 08/26 In the past 12 months, has l ack of transportation kept you from meetings, work, or from getting things needed for daily living? No 09/04/2024 Housing Stability Answer Date Recorded What is your living situation today? I have a [facility] place to live 09/04/2024 Education Answer Date Recorded What is the highest level of school you have completed or the highest degree you have received? 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 [address] [place] [phone] China Parikh M.S.W., L.I.C.S.W. [address] [place] [phone] 11/12/2024 2:15 PM CDT Office Visit Department of Cardiovascular Medicine in [place], [place] [address] [place] [phone] Elisa Alva M.D. [address] [place] [phone] documented as of this encounter Visit Diagnoses Not on filedocumented in this encounter Care Teams Construction Operations Manager Relationship Specialty Start Date End Date Elsewhere, Pcp PCP - General Internal Medicine 09/27/24 10/08/24 documented as of this encounter
--- OUTSIDE RECORDS SUMMARY | 2024-10-01 10:00 | XMS_ITS | Encounter Summary ---
Author Organization [facility] Address [address] [place] [address] Care Team Providers Care Gang Punch Operator Name Role Phone Elsewhere, Pcp Primary Care Provider Unavailabl e Encounter Details Date Type Department Care Team (Latest Contact Info) Description 10/01/2024 10:00 AM CDT - 10/01/2024 2:29 PM CDT Hospital Encounter Department of Laboratory Medicine and Pathology, [facility] in [place], [place] [address] [place] [address] Shyam Musa M.D. [address] [place] [address] Mass Bladder; Hematuria Discharge Disposition: Home or Self Care Social History Tobacco Use Types Packs/Day Years Used Date Smoking Tobacco: Former Smokeless Tobacco: Never Alcohol Use Standard Drinks/Week Comments Yes 6 (1 standard drink = 0.6 oz pur e alcohol) [facility] Utilities Answer Date Recorded In the past 12 months has e [employer], gas, oil, or water [employer] threatened to shut off services in your [...] 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, FILTER WORKER, BERTA) 05/11/2020 Sex and Gender Information Value Date Recorded Sex Assigned at Male 09/04/2024 9:32 AM CDT 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 [address] [place] [phone] China Parikh M.S.W., L.I.C.S.W. [address] [place] [phone] 11/12/2024 2:15 PM CDT Office Visit Department of Cardiovascular Medicine in [place], [place] [address] [place] [phone] Elisa Alva M.D. [address] [place] [phone] documented as of this encounter Procedures Procedure [...] 1:14 PM CDT 10/01/2024 3:01 PM CDT us Shyam Musa M.D. LAB URINE ORDERABLES Final Re sult [facility] [address] [place] [address], [facility] DTL [facility] [address] [place] [address] * pH, Urine (10/01/2024 1:14 PM CDT) pH, U 6.4 4.5 - 8.0 10/01/2024 3:0 9 PM CDT DTL Urine 10/01/2024 1:14 PM CDT 10/01/2024 2:22 PM CDT us Shyam Musa M.D. LAB URINE ORDERABLES Final Re sult Performing Organization Address [facility] Co de Phone Number [facility] [address] [place] [phone] [place] [address] 200 [place] [address] * (ABNORMAL) Dipstick, Urine (10/01/2024 1:14 PM [...] ORDERABLES Final Re sult Performing Organization Address [facility] Co de Phone Number [facility] 200 [place] [address], [facility] 200 [place] [address] * Osmolality, Urine (10/01/2024 1:14 PM CDT) Osmolality, U 372 150 - 1150 mOsm/kg 10/01/2024 3:09 PM CDT DTL Urine 10/01/2024 1:14 PM CDT 10/01/2024 2:22 PM CDT us Shyam Musa M.D. LAB URINE ORDERABLES Final Re sult Performing Organization Address [facility] Co de Phone Number [facility] [address] [place] [address], [facility] 200 [place] [address] * (ABNORMAL) Urinalysis, with Microscopic: Urine, Midstream [...] 1:14 PM CDT 10/01/2024 2:21 PM CDT Shyam Musa M.D. LAB URINE ORDERABLES Final Re sult Performing Organization Address [facility] Co de Phone Number [facility] 200 [place] [address], [facility] [place] 200 [place] [address] * (ABNORMAL) Bacterial Culture, Aerobic + Susceptibility, Urine (10/01/2024 1:14 PM CDT) Urine Culture Multiple organisms >10,000 cfu/mL present suggesting probable contamination (A) 10/02/2024 11:08 AM CDT DTL Urine (Urine, Midstream) 10/01/2024 1:14 PM CDT 10/01/2024 2:46 PM CDT Comment:Specimen Source Site : Urine us Shyam Musa M.D. LAB MICROBIOLOGY - GENERAL OR DERABLES Final Result [facility] [address] [place] [address], [facility] [place] [address] [place] [address] documented in this encounter Visit Diagnoses Diagnosis Mass Bladder Hematuria documented in this encounter Care Teams Gang Punch Operator Relationship Specialty Start Date End Date Elsewhere, Pcp PCP - General Internal Medicine 09/27/24 10/08/24 documented as of this encounter
--- OUTSIDE RECORDS SUMMARY | 2024-10-01 11:00 | XMS_ITS | Encounter Summary ---
Author Organization [facility] Address [address] [place] [address] Care Team Providers Care Provisioning Analyst Name Role Phone Elsewhere, Pcp Primary Care Provider Unavailabl e Reason for Referral * Outpatient (Routine) - Closed Specialty Diagnoses / Procedures Referred By Contac t Referred To Contact Diagnoses Preanesthetic Medical Exam Procedures ECG 12 Lead TN EKG 12 LEAD W I&R Kiel Schmidt M.D. [address] [place] [phone] Phone: tel: fax: [facility] Referral ID Status Reason Start Date Expiration Date Visits Re quested Visits Authorized [id number] Closed 10/01/2024 01/01/2026 1 1 * Outpatient (Routine) - Closed Specialty Diagnoses / Procedures Referred By Contact Referred To Contact Cardiovascular Diseases / Cardiovascular Disease Diagnoses Preanesthetic Medical Exam Kiel Schmidt M.D. [address] [place] [phone] Phone: tel: fax: [facility] Referral ID Status Reason Start Date Expiration Date Visits Re quested Visits Authorized [id number] Closed 10/01/2024 04/02/2026 1 1 * Outpatient (Routine) - Authorized Specialty Diagnoses / Procedures Referred By Contac t Referred To Contact Diagnoses Preanesthetic Medical Exam Procedures ECG 12 Lead TN EKG 12 LEAD W I&R Kiel Schmidt M.D. [address] [place] [phone] Phone: tel: fax: [facility] Referral ID Status Reason Start Date Expiration Date V isits Requested Visits Authorized [id number] Authorized 10/01/2024 01/01/2026 1 1 Reason for Visit * Outpatient (Routine) - Closed Specialty Diagnoses / Procedures Referred By Keiko latif Referred To Contact Anesthesiology Diagnoses Malignant Neoplasm Of Bladder (HCC) Shyam Musa M.D. [address] [place] [address] Phone: tel: fax: [facility] Referral ID Status Reason Start Date Expiration Date Visits Re quested Visits Authorized [id number] Closed 09/04/2024 03/06/2026 1 1 Encounter Details Date Type Department Care Team (Latest Contact Info) Description 10/01/2024 11:00 AM CDT Comprehensive Visit Preoperative Evaluation Center in [place], [place] [address] [place] [phone] Shyam Musa M.D. [address] [place] [phone] Kiel Schmidt M.D. [address] [place] [phone] Preanesthetic Medical Exam (Primary Dx); Malignant Neoplasm Of Bladder (HCC); Atherosclerotic Heart Disease [place] Coronary Artery With Other Forms Angina Pectoris (Stable Angina/Angina Of Exertion); Hyperlipidemia; Obstructive Sleep Apnea Adult; Gastroesophageal Reflux Disease; Stroke Cerebrovascular Accident Personal History; Occlusion Carotid Artery With Cerebral Infarction (HCC); Impairment Cognitive Mild; Thrombosis Deep Vein Personal History Social History Tobacco Use Types Packs/Day Years Used Date Smoking Tobacco: Former Smokeless Tobacco: Never Alcohol Use Standard Drinks/Week Comments Yes 6 (1 standard drink = 0.6 oz pur e alcohol) [facility] Utilities Answer Date Recorded In the past [...] your living situation today? I have a [facility] place to live 09/04/2024 Education Answer Date Recorded What is the highest level of school you have completed or the highest degree you have received? 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 Gender Identity Male 09/04/2024 9:32 AM CDT Sexual Orientation Straight 09/04/2024 9: 32 AM CDT documented as of this encounter Last Filed Vital Signs Vital Sign Reading Time Taken Comments Blood Pressure 129/80 10/01/2024 11:08 AM CDT Pulse 73 10/01/2024 11:08 AM CDT Temperature 36.6 C (97.9 F) 10/01/2024 11:08 AM CDT Respiratory Rate - - Oxygen Saturation 94% 10/01/2024 11:08 AM CDT Inhaled Oxygen Concentration - - Weight 82.3 kg (181 lb 7 oz) 10/01/2024 11:08 AM CDT Height 168 cm (5' 6.14) 10/01/2024 11:08 AM CDT Body Mass Index 29.16 10/01/2024 11:08 AM CDT documented in this encounter H&P Notes * Kiel Schmidt M.D. - 10/01/2024 11:00 AM CDT REASON FOR VISIT: Preoperative Medical Evaluation REFERRING PHYSICIAN: Shyam Musa M.D. PROCEDURE: 10/11/2024: CYSTOSCOPY WITH TRANSURETHRAL RESECTION LESION BLADDER; Liat Johnston D.O. Surgery Specific Risk Classification: Low Risk SUBJECTIVE HISTORY OF PRESENT ILLNESS Hernandez Samayoa is a 78 y.o. male who is here for a pre-anesthetic medical examination prior to the planned procedure as listed above. REVIEW OF SYSTEMS Constitutional: - Negative for fever and night sweats. Respiratory: - Negative for coughing up mucus (phlegm), dry cough, shortness of breath and wheezing. Cardiovascular: Positive for chest pain, pressure or tightness. - Negative for rapid or fluttering heart beat and shortness of breath when lying flat. Gastrointestinal: - Negative for heartburn and difficulty swallowing. PERIOPERATIVE RISK: Revised Cardiac Risk Index: 2 Points; Moderate risk of cardiac event (6.6%) Gal[place] Cardiac Risk Score: 0.29% OBJECTIVE BP 129/80 Pulse 73 Temp 36.6 ??C (Temporal) Ht 168 cm Wt 82.3 kg SpO2 94% BMI 29.16 kg/m?? OBJECTIVE PHYSICAL EXAMINATION General/Constitutional Constitutional Assessment: Normal General State of Health: Healthy appearing Airway (HEENT) Full upper denture plate. Partial lower plate. Left lower molar loose. Mallampati: I TM Distance: >3 FB Neck ROM: Full Mouth Opening: > 3 cm Upper Lip Bite Test: I Dental Assessment: Lower dentures, upper dentures and dentition in poor repair Cardiovascular III/ ROSARIO at base. Radial pulses symmetric and full without delay. 1+ peripheral edema left lower extremity Rhythm: Regular Rate: Normal Cardiovascular Assessment: Heart murmur Pulmonary Scattered crackles throughout. No wheezing. Pulmonary Assessment: Non labored and crackles Neurological Neurologic Assessment: Alert and oriented X 3 Musculoskeletal MSK Assessment: Normal Gait: Normal Ambulate with: None Psychiatric Psychiatric Assessment: Calm Dermatology Skin: Warm, dry, intact. Normal skin turgor. Abdomen Soft, non-tender, non-distended with normal bowel sounds. ASSESSMENT / PLAN Anesthesia: Patient denies previous anesthesia related complications. Specifically, no history of PONV, anaphylaxis, bleeding complications or uncontrolled pain. No personal or family history of malignant hyperthermia or pseudocholinesterase deficiency. Heart Activity Index Score (DASI): 18.95 Points; 5.07 METS Patient has adequate functional capacity. Reports episodes of both rest and exertional chest pain that have increased in frequency over the past few months. Airway Hx: 03/28/20 (Outside Hospital) Mask ventilation not attempted; Uneventful 0 direct laryngoscopy (1 attempt) w/ 7.5 ETT; Grade 1 view Labs: Lab Results Component Value Date HGB 11.8 (L) 08/14/2024 HCT 34 (L) 08/13/2024 PLT 157 08/13/2024 WBC 6.3 08/13/2024 NA 141 08/14/2024 KSERUM 3.6 08/14/2024 CREATININE 0.77 08/14/2024 ECG: Pending ECHO: 07/15/23 1. Normal left ventricular size, normal wall thickness, normal global systolic function, calculatedEF of 70 %. 2. The aortic valve is sclerotic, no stenosis and no regurgitation. 3. The mitral valve is sclerotic, trace mitral regurgitation. 4. The ascending aorta is dilated with a maximal diameter of 4.4 cm. 5. The aortic sinus is dilated with a maximal diameter of 3.[address] CARDIAC CORONARY ARTERIES: 01/28/20 (Outside study) 1. Severe 2-vessel to 3-vessel coronary artery disease. 2. Will send for FFR-CT to better assess the LAD lesion. #1 Preanesthetic Medical Exam Pleasant 78 y.o. male seen for pre-anesthetic medical evaluation. Poor historian. Denies recent cold or flu symptoms, fevers, chills, or night sweats. No antibiotic use within the past 30-day. No steroid use within the past 90- days. Denies bleeding or clotting disorders. No prior radiation or chemotherapy exposure. No prior neck/spine injuries or procedures. No prior difficulties with anesthesia.Describes worsening rest and exertional angina in the setting of known coronary artery disease (Seenotes below). Tobacco use: Quit 1999 (25 pack-years) Alcohol use: 3 drinks per week Caffeine use: 2 beverages per day Other: Denies marijuana use #2 Malignant Neoplasm Of Bladder (HCC) Scheduled for cystoscopy with TURB lesion and bilateral stent placement with Dr. Johnston. #3 Atherosclerotic Heart Disease [place] Coronary Artery With Other Forms Angina Pectoris (Stable Angina/Angina Of Exertion) History of obstructive coronary artery disease without prior revascularization. Patient underwent apreoperative nuclear perfusion study on 01/23/2020 that demonstrated a small area of mild ischemia within the mid and apical inferior wall. A follow-up cardiac coronary CT showed severe 2-3 vessel coronary artery disease (mid-LAD, OM1, and distal RCA). At that time, the patient was having minimal symptoms and the decision was made to proceed with medical therapy for chronic stable angina (Metoprolol + Aspirin). During the past few months, the patient describes increasing frequency of both rest and exertional angina that is often associated with GUZMÁN. He also reports new onset lower extremity edema. Mr. Samayoa denies orthopnea, PND, palpitations, lightheadedness or presyncopal symptoms. He reports that he has never used his sublingual nitroglycerin when experiencing chest discomfort (althoughhe carries his SL NTG with him at all times). When asked why he has not used his nitroglycerin, thepatient reports that he did not think his chest pain was severe enough to warrant treatment. We will arrange for Mr. Samayoa to see one of our cardiologists before his upcoming surgery to ensure that heis optimized given his new onset clinical symptoms. #4 Hyperlipidemia Stable. Well-controlled with rosuvastatin. Will continue current medical regimen. #5 Obstructive Sleep Apnea Adult Stable. Symptoms improved status post uvulopalatopharyngoplasty. Does not use CPAP. #6 Gastroesophageal Reflux Disease Reports intermittent dyspepsia associated with late night and spicy meals. He treats this with cnpr-dev-zyykfzy medications (Tums) approximately twice weekly. 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 MRI demonstrated a small cluster of acute infarction within the right frontoparietal convexity and CTA showedsevere right carotid artery stenosis. Patient subsequently underwent a right carotid endarterectomyin February 2020 without complication. Continues to be managed with aspirin therapy. 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 #9 Impairment Cognitive Mild Increasing concerns with memory and recall deficits. The patient's memory challenges make it difficult for him to recall his medical history. 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 Patient reports he was dischargedon apixaban for an extended period of time. He does not recall when this was discontinued. Denies the use of any anticoagulants at this time. PATIENT EDUCATION: Reviewed Instructions To Get Ready for Your Surgery or Procedure: [facility]. Written and/or verbal instructions given on medication management before surgery. Reviewed instructions on avoiding aspirin, ibuprofen-containing medications, and supplements one week before surgery. Patient may take acetaminophen as needed for pain. RECOMMENDATIONS: Patient medically optimized for planned procedure: No Further Recommendations: Cardiology CARLOS Consult ordered given the patients increasing frequency of rest and exertional chest pain. I spent 30 minutes of total [id number] time in consultation with the patient. documented in this encounter Plan of Treatment Upcoming Encounters Date Type Department Care Team (Late st Contact Info) Description 11/02/2024 1:00 PM CDT Clinical Support Department of Oncology in [place], [place] [address] [place] [phone] Polo Dwyer M.D. [address] [place] [phone] China Parikh M.S.W., L.I.C.S.W. [address] [place] [phone] 11/12/2024 2:15 PM CDT Office Visit Department of Cardiovascular Medicine in [place], [place] [address] [place] [phone] Elisa Alva M.D. [address] [place] [phone] Scheduled Referrals Name Type Priority Associated Diagnoses Order Schedule Cardiovascular Disease - CARLOS consult (clinic) Outpatient Referral Routine Preanesthetic Medical Exam Expected: 10/01/2024, Expires: 01/01/2026 documented as of this encounter Procedures Procedure Name Priority Date/Time Associated Diagnosis Comments ECG Routine 10/01/2024 12:06 PM CDT Preanesthetic Medical Exam documented in this encounter Results * ECG 12 Lead (10/09/2024 2:48 PM CDT) Ventricular Rate ECG/Min 64 BPM MUSE TN Interval 182 ms MUSE QRSD Interval 76 ms MUSE QT Interval 388 ms MUSE QTC Interval 400 ms MUSE P [place] 41 degrees MUSE R [place] 59 degrees MUSE T Wave [place] 49 degrees MUSE 10/09/2024 2:48 PM CDT 10/09/2024 2:53 PM CDT Impressions MUSE - 10/09/2024 2:53 PM CDT Normal sinus rhythm Normal ECG When compared with ECG of 01-Oct-2024 12:06, No significant change was found Reviewed by JIM Cornejo Narrative Procedure Note Walker Rehman M.D. - 10/09/2024 IMPRESSION: Normal sinus rhythm Normal ECG When compared with ECG of 01-Oct-2024 12:06, No significant change was found Reviewed by JIM Cornejo Kiel Schmidt M.D. ECG ORDERABLES Final Result MUSE NA * ECG 12 Lead (10/01/2024 12:06 PM CDT) Ventricular Rate ECG/Min 78 BPM MUSE TN Interval 164 ms MUSE QRSD Interval 78 ms MUSE QT Interval 362 ms MUSE QTC Interval 412 ms MUSE R [place] 14 degrees MUSE T Wave [place] 18 degrees MUSE 10/01/2024 12:0 6 PM CDT 10/01/2024 1:03 PM CDT Impressions MUSE - 10/01/2024 1:03 PM CDT Normal sinus rhythm Normal ECG No previous ECGs available Reviewed by JIM Baldwin Narrative Procedure Note Tobi De Leon M.D., Ph.D. - 10/01/2024 IMPRESSION: Normal sinus rhythm Normal ECG No previous ECGs available Reviewed by JIM Baldwin us Kiel Schmidt M.D. 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
--- OUTSIDE RECORDS SUMMARY | 2024-10-01 14:30 | XMS_ITS | Encounter Summary ---
Author Organization [facility] Address [address] [place] [address] Care Team Providers Care Object Oriented Developer Name Role Phone Elsewhere, Pcp Primary Care Provider Unavailabl e Reason for Visit * MRI/CAT/PET Scan (Routine) - Closed Specialty Diagnoses / Procedures Referred By Contac t Referred To Contact Radiology Diagnoses Mass Bladder Procedures CT Chest without IV Contrast CT Chest with IV Contrast Shyam Musa M.D. [address] [place] [address] Phone: tel: fax: [facility] Referral ID Status Reason Start Date Expiration Date Visits Re quested Visits Authorized [id number] Closed 09/04/2024 12/05/2025 1 1 Encounter Details Date Type Department Care Team (Latest Contact Info) Description 10/01/2024 2:30 PM CDT - 10/01/2024 11:59 PM CDT Hospital Encounter Department of Radiology, [facility] in [place], [place] [address] [place] [address] Shyam Musa M.D. [address] [place] [phone] Mass Bladder Discharge Disposition: Home or Self Care Social History Tobacco Use Types Packs/Day Years Used Date Smoking Tobacco: Former Smokeless Tobacco: Never Alcohol Use Standard Drinks/Week Comments Yes 6 (1 standard drink = 0.6 oz pur e alcohol) [facility] Utilities Answer Date Recorded In the [...] your living situation today? I have a [facility] place to live 09/04/2024 Education Answer Date Recorded What is the highest level of school you have completed or the highest degree you have received? 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 90 tablet 3 07/15/2020 cyanocobalamin (Vitamin B-12) 1,000 mcg/mL injection Inject 1,000 mcg intramuscularly every 30 (thirty) days. 07/05/2024 08/14/19 finasteride (PROSCAR) 5 mg tablet Take 1 [...] CDT Clinical Support Department of Oncology in [place], [place] [address] [place] [phone] Polo Dwyer M.D. [address] [place] [phone] China Parikh M.S.W., L.I.C.S.W. [address] [place] [phone] 11/12/2024 2:15 PM CDT Office Visit Department of Cardiovascular Medicine in [place], [place] [address] [place] [address] Elisa Alva M.D. [address] [place] [address] documented as of this encounter Procedures Procedure [...] Bladder documented in this encounter Care Teams Object Oriented Developer Relationship Specialty Start Date End Date Elsewhere, Pcp PCP - General Internal Medicine 09/27/24 10/08/24 documented as of this encounter
--- OUTSIDE RECORDS SUMMARY | 2024-10-09 07:00 | XMS_ITS | Encounter Summary ---
Author Organization [facility] Address [address] [place] [address] Care Team Providers Care Tongue Carrier Name Role Phone Elsewhere, Pcp Primary Care Provider Unavailabl e Reason for Referral * Outpatient (Routine) - Authorized Specialty Diagnoses / Procedures Referred By Contac t Referred To Contact Diagnoses Pain Chest Procedures NM Cardiac Perfusion Rest and Stress SPECT Ab Shabazz MPAS, P.A.-C., M.S. [address] [place] [address] Phone: tel: fax: [facility] Referral ID Status Reason Start Date Expiration Date V isits Requested Visits Authorized [id number] Authorized 10/02/2024 01/02/2026 8 8 Reason for Visit * Outpatient (Routine) - Authorized Specialty Diagnoses / Procedures Referred By Contac t Referred To Contact Diagnoses Pain Chest Procedures NM Cardiac Perfusion Rest and Stress SPECT Ab Shabazz MPAS, P.A.-C., M.S. [address] [place] [address] Phone: tel: fax: [facility] Referral ID Status Reason Start Date Expiration Date V isits Requested Visits Authorized [id number] Authorized 10/02/2024 01/02/2026 8 8 Encounter Details Date Type Department Care Team (Latest Contact Info) Description 10/09/2024 7:00 AM CDT - 10/09/2024 7:12 AM CDT Hospital Encounter Department of Radiology, [facility], in [place], [place] [address] [place] [address] Ab Shabazz MPAS, P.A.-C., M.S. [address] [place] [address] Pain Chest Discharge Disposition: Home or Self Care Social History Tobacco Use Types Packs/Day Years Used Date Smoking Tobacco: Former Smokeless Tobacco: Never Alcohol Use Standard Drinks/Week Comments Yes 3 (1 standard drink = 0.6 oz pur e alcohol) [facility] Utilities Answer Date Recorded In the past 12 months has e electric, gas, oil, or water [employer] threatened to shut off services in your [...] 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, CARDING MACHINE OPERATOR, BERTA) 05/11/2020 Sex and Gender Information Value Date Recorded Sex Assigned at Male 09/04/2024 9:32 AM CDT 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 [address] [place] [phone] China Parikh M.S.W., L.I.C.S.W. [address] [place] [phone] 11/12/2024 2:15 PM CDT Office Visit Department of Cardiovascular Medicine in [place], [place] [address] [place] [phone] Elisa Alva M.D. [address] [place] [phone] documented as of this encounter Procedures Procedure [...] See PDF For Result us Ab ABBOTT PJonathan., M.S. [facility] Final Result [facility] NA documented in this encounter [...] millicuries documented in this encounter Care Teams Tongue Carrier Relationship Specialty Start Date End Date Elsewhere, Pcp PCP - General Internal Medicine 10/09/24 documented as of this encounter
--- OUTSIDE RECORDS SUMMARY | 2024-10-09 07:13 | XMS_ITS | Encounter Summary ---
Author Organization [facility] Address [address] [place] [address] Care Team Providers Care Soundscriber Mechanic Name Role Phone Elsewhere, Pcp Primary Care Provider Unavailabl e Reason for Visit * Outpatient (Routine) - Authorized Specialty Diagnoses / Procedures Referred By Contac t Referred To Contact Diagnoses Pain Chest Procedures NM Cardiac Perfusion Rest and Stress SPECT Ab Shabazz MPAS, P.A.-C., M.S. 200 [place] [address] Phone: tel: fax: [facility] Referral ID Status Reason Start Date Expiration Date V isits Requested Visits Authorized [id number] Authorized 10/02/2024 01/02/2026 8 8 Encounter Details Date Type Department Care Team (Latest Contact Info) Description 10/09/2024 7:13 AM CDT - 10/09/2024 4:59 PM CDT Hospital Encounter Department of Cardiovascular Diseases in [place], [place] [address] [place] [phone] Ab Shabazz MPAS, P.A.-Shayna., M.S. [address] [place] [phone] Discharge Disposition: Home or Self Care Social History Tobacco Use Types Packs/Day Years Used Date Smoking Tobacco: Former Smokeless Tobacco: Never Alcohol Use Standard Drinks/Week Comments Yes 3 (1 standard drink = 0.6 oz pur e alcohol) [facility] Utilities Answer Date Recorded In the past 12 months has th e [employer], gas, oil, or water [employer] threatened to shut off services in your [...] your living situation today? I have a [facility] place to live 10/09/2024 Education Answer Date Recorded What is the highest level of school you have completed or the highest degree you have received? 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 [address] [place] [phone] China Parikh M.S.W., L.I.C.S.W. [address] [place] [phone] 11/12/2024 2:15 PM CDT Office Visit Department of Cardiovascular Medicine in [place], [place] [address] [place] [phone] Elisa Alva M.D. [address] [place] [phone] documented as of this encounter Procedures Procedure [...] 10/09/2024 See PDF For Result us Ab ABBOTT, P.A.-C., M.S. [facility] LEO MORAN Final Result CV MERGE NA documented in this encounter Visit Diagnoses Not on filedocumented in this encounter Care Teams Soundscriber Mechanic Relationship Specialty Start Date End Date Elsewhere, Pcp PCP - General Internal Medicine 10/09/24 documented as of this encounter
--- OUTSIDE RECORDS SUMMARY | 2024-10-09 07:13 | XMS_ITS | Encounter Summary ---
Author Organization [facility] Address [address] [place] [address] Care Team Providers Care Antique Finisher Name Role Phone Elsewhere, Pcp Primary Care Provider Unavailabl e Reason for Visit * Outpatient (Routine) - Authorized Specialty Diagnoses / Procedures Referred By Contac t Referred To Contact Diagnoses Pain Chest Procedures NM Cardiac Perfusion Rest and Stress SPECT Ab Shabazz MPAS, P.A.-C., M.S. [address] [place] [phone] Phone: tel: fax: [facility] Referral ID Status Reason Start Date Expiration Date V isits Requested Visits Authorized [id number] Authorized 10/02/2024 01/02/2026 8 8 Encounter Details Date Type Department Care Team (Latest Contact Info) Description 10/09/2024 7:13 AM CDT - 10/09/2024 4:59 PM T Hospital Encounter Department of Radiology, [facility], in [place], [place] [address] [place] [address] Ab Shabazz MPAS, P.A.Maria Fernanda., M.S. [address] [place] [phone] Discharge Disposition: Home or Self Care Social History Tobacco Use Types Packs/Day Years Used Date Smoking Tobacco: Former Smokeless Tobacco: Never Alcohol Use Standard Drinks/Week Comments Yes 3 (1 standard drink = 0.6 oz pur e alcohol) [facility] Utilities Answer Date Recorded In the past 12 months has e [employer], gas, oil, or water [employer] threatened to shut off services in your [...] your living situation today? I have a [facility] place to live 10/09/2024 Education Answer Date Recorded What is the highest level of school you have completed or the highest degree you have received? 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 [address] [place] [phone] China Parikh M.S.W., L.I.C.S.W. [address] [place] [phone] 11/12/2024 2:15 PM CDT Office Visit Department of Cardiovascular Medicine in [place], [place] [address] [place] [phone] Elisa Alva M.D. [address] [place] [phone] documented as of this encounter Procedures Procedure [...] (Tc-99m Cardiolite) 5.4-48.4 millicurie, intravenous, Once, On Tu10/09/24 at 0845, For 1 dose, Imaging Protocol Orders Given 10/09/2024 8:28 AM CDT 34.1 millicuries documented in this encounter Care Teams Antique Finisher Relationship Specialty Start Date End Date Elsewhere, Pcp PCP - General Internal Medicine 10/09/24 documented as of this encounter
--- OUTSIDE RECORDS SUMMARY | 2024-10-09 16:15 | XMS_ITS | Encounter Summary ---
Author Organization [facility] Address [address] [place] [address] Care Team Providers Care Hopper Operator Name Role Phone Elsewhere, Pcp Primary Care Provider Unavailabl e Reason for Visit * Outpatient (Routine) - Closed Specialty Diagnoses / Procedures Referred By Contact Referred To Contact Cardiovascular Diseases / Cardiovascular Disease Diagnoses Preanesthetic Medical Exam Kiel Schmidt M.D. [address] [place] [address] Phone: tel: fax: [facility] [place] [facility] Referral ID Status Reason Start Date Expiration Date Visits Re quested Visits Authorized [id number] Closed 10/01/2024 04/02/2026 1 1 Encounter Details Date Type Department Care Team (Latest Contact Info) Description 10/09/2024 4:15 PM CDT Office Visit Department of Cardiovascular Medicine in [place], [place] [address] [place] [address] Elisa Alva M.D. [address] [place] [address] Preoperative Exam (Primary Dx); Preoperative Examination Cardiovascular; Hyperlipidemia; Embolus Pulmonary Personal History; Preanesthetic Medical Exam; Angina Unstable (HCC) Social History Tobacco Use Types Packs/Day Years Used Date Smoking Tobacco: Former Smokeless Tobacco: Never Alcohol Use Standard Drinks/Week Comments Yes 3 (1 standard drink = 0.6 oz pur e alcohol) [facility] Utilities Answer Date Recorded In the past 12 months has e [employer], gas, oil, or water company threatened to [...] your living situation today? I have a [facility] place to live 10/09/2024 Education Answer Date Recorded What is the highest level of school you have completed or the highest degree you have received? 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 MRI showed [...] high risk of adverse cardiac events, including SC, with anesthesia. Recommend hospital admission for PCI. Will admit patient to [facility] This 78-year-old male with obstructive coronary artery [...] unstable angina. Recommend patient present to [facility] ER for urgent coronary angiography. Handoff was provided to our team there. Patient and family expressed understanding of plan and will proceed to the ER. Patient staffed with Dr. Yariel Alva M.D. [facility] Cardiovascular Diseases Fellow PGY-4 Pager: [phone] Cosigned by Yariel Muniz M.D. at 10/09/2024 4:47 PM CDT documented in this encounter Plan of Treatment Upcoming Encounters Date Type Department Care Team (Late st Contact Info) Description 11/02/2024 1:00 PM CDT Clinical Support Department of Oncology in [place], [place] [address] [place] [phone] Polo [place] M.D. [address] [place] [phone] China Parikh M.S.Onur., L.I.C.S.W. [address] [place] [phone] 11/12/2024 2:15 PM CDT Office Visit Department of Cardiovascular Medicine in [place], [place] [address] [place] [phone] Elisa Alva M.D. [address] [place] [phone] documented as of this encounter Visit Diagnoses Diagnosis Preoperative Exam- Primary Preoperative Examination Cardiovascular Hyperlipidemia Embolus Pulmonary Personal History Preanesthetic Medical Exam Angina Unstable (HCC) documented in this encounter Care Teams Hopper Operator Relationship Specialty Start Date End Date Elsewhere, Pcp PCP - General Internal Medicine 10/09/24 documented as of this encounter
--- OUTSIDE RECORDS SUMMARY | 2024-10-09 17:00 | XMS_ITS | Encounter Summary ---
Author Organization [facility] Address [address] [place] [id number] Care Team Providers Care Cellophaner Name Role Phone Elsewhere, Pcp Primary Care Provider Unavailabl e Reason for Visit * Reason Comments Chest Pain Encounter Details Date Type Department Care Team (Latest Contact Info) Description 10/09/2024 5:00 PM CDT - 10/12/2024 4:06 PM CDT Hospital Encounter [facility], [facility], Fifth Floor [address] [place] [address] [phone] Zuri Harvey, P.A.-C., M.S. [address] [place] [phone] Spencer Marroquin M.D. [address] [place] [address] [phone] Terry Oliveira M.D., Ph.D. [address] [place] [address] [phone] Iva Ascencio M.D., Ph.D. [address] [place] [phone] Angina Unstable (HCC) (Primary Dx); Pain Chest; Decline Functional Status [R53.81]; Malaise [R53.81] Discharge Disposition: Home or Self Care Social History Tobacco Use Types Packs/Day Years Used Date Smoking Tobacco: Former Smokeless Tobacco: Never Alcohol Use Standard Drinks/Week Comments Yes 3 (1 standard drink = 0.6 oz pur e alcohol) [facility] Utilities Answer Date Recorded In the [...] 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, TEST HOLE DRILLER, BERTA) 05/11/2020 Sex and Gender Information Value Date Recorded Sex Assigned at Male 09/04/2024 9:32 AM CDT Legal Sex Male 5:45 PM BANQUET COOK Gender Identity Male 09/04/2024 9:32 AM CDT Sexual Orientation Straight 09/04/2024 9: 32 AM CDT documented as of this encounter Last Filed Vital Signs Vital Sign Reading Time Taken Comments Blood Pressure 107/67 10/12/2024 3:00 PM CDT Pulse 47 10/12/2024 3:00 PM CDT Temperature 36.8 C (98.2 F) 10/12/2024 3:00 PM CDT Respiratory Rate 18 10/12/2024 3:00 PM CDT Oxygen Saturation 95% 10/12/2024 3:00 PM CDT Inhaled Oxygen Concentration - - Weight 77.9 kg (171 lb 11.8 oz) 025 12:24 AM CDT Height 172.7 cm (5' 7.99) 10/10/2024 9:06 AM CD T Body Mass Index 26.12 10/10/2024 9:06 AM CDT documented in this encounter Discharge Summaries * Clari Daniel M.D. - 10/12/2024 2:46 PM CDT DISCHARGE SUMMARY BRIEF OVERVIEW Hospital: [facility] Discharge Provider: Iva Ascencio M.D. Primary Team: [facility] CARD 2 Primary Care Providers: Elsewhere, Pcp (General) No address on file Primary Care Provider Phone Number: None Primary Care Provider Fax Number: None Other Providers: Medical Oncology, Alisa Menjivar Admission Date: 10/09/2024 Discharge Date: 10/12/24 PRINCIPAL DIAGNOSIS Angina Unstable (HCC) SECONDARY DIAGNOSES Principal Problem: Angina Unstable (HCC) Resolved Problems: * No resolved hospital problems. * Surgery Information This Encounter Past Procedures (10/13/2023 to Today) Date Procedures Providers Loc / Dept 10/10/2024 CORONARY ANGIOGRAPHY Grey Gomez M.D.Sherafati, Alborz, M.D. [facility] ROM[facility] CCL DISCHARGE DISPOSITION Home or Self Care [1] ACTIVE ISSUES REQUIRING FOLLOW UP Discharge Notes from your Provider Team You were discharged from the [facility] CVD 2 Service. Please identify this service name if you call with questions after hospitalization. Your primary hospital diagnosis: Multi-vessel coronary disease Important test results: - 7/16 Diagnostic cardiac catheterization with multivessel coronary disease, left main 20%, proximal LAD 50%, middle LAD 70%, distal circ 30%, ramus intermedius 80%, proximal RCA 50%, mid RCA 50%, distal RCA 100%, right PDA 99% with collaterals, right posterolateral 99% with collaterals Coats things to remember: - You were hospitalized for chest pain. The catheterization showed stable disease that we did not need to do anything about outside of resume aspirin. While in the hospital, you had a CT guided biopsy that will guide further treatment of your bladder cancer. Medication changes: - Please continue medications as indicated in medication reconciliation - Please resume aspirin 81 mg daily for multivessel coronary disease Follow-up: - Please attend follow up appointments as listed in after visit summary - Risk factor modification as per primary care provider, with whom you should follow up after discharge - Follow-up with your PCP within 2 weeks. Follow-up on October 22 with PCP at 10AM. - Follow-up with cardiology (Dr. Alva) on November 12 at 2:00 PM. Instructions for your physician: - Please follow up BMP on Sunday 10/15 to reassess creatinine and potassium - Please watch for hematuria as we have resumed aspirin - Urology/medical oncology are deciding on treatment for bladder cancer, please follow their recommendations - Patient had extensive multivessel coronary disease, no intervention was performed given desire toavoid DAPT - OT noted difficulty with medication administration, please ensure patient is taking medications as instructed and/or has someone to assist him with this - Aspirin is for secondary prevention of CAD, it is ok to hold for procedures or stop for bleeding If you have any questions related to issues addressed during your hospitalization prior to your follow-up appointments, contact the [facility] Napper Runner at [phone] and ask to speak with the Cardiology 2 Service OUTPATIENT FOLLOW UP Scheduled Appointments 10/16/2024 9:15 AM RST URO INTAKE VISIT Admitting/Central Scheduling 10/17/2024 8:30 AM Pema Rojas M.D. Urology 10/17/2024 9:30 AM LAB BLOOD [facility] Laboratory Medicine 10/17/2024 1:20 PM Alisa Menjivar M.D. Oncology 11/12/2024 2:15 PM Elisa Alva M.D. Cardiovascular Disease For appointment details refer to your Patient Appointment Guide. TEST RESULTS PENDING AT DISCHARGE Pending Labs Order Current Status Cytology Fine Needle Aspiration (including core biopsies) Preliminary result DETAILS OF HOSPITAL STAY REASON FOR ADMISSION Other chest pain Angina Unstable (HCC) Pain Chest HOSPITAL COURSE Mr. Samayoa is a 78 y.o. year old male who initially presented in the outpatient setting for a preanesthetic medical evaluation for a surgical evaluation for a bladder mass but was describing worsening chest discomfort concerning for ACS, and was admitted to the [facility] CARD 2 service for further management and cares. Prior to admission: The patient was being evaluated on the same day by outpatient Cardiology for a preoperative/pre anesthetic medical evaluation for a planned transurethral resection of his bladder tumor on 10/11/2024.During that visit, the patient described to the providers that he has been having increasingly morefrequent chest discomfort. He reportedly has a known history of chronic stable angina. Given the concerns for possible acute coronary syndrome, the patient was recommended to go to the emergency department for further evaluation. Upon arrival to the emergency department, the patient was hemodynamically stable and afebrile with normotensive blood pressures. Presenting EKG showed NSR without significant changes concerning for ischemia. Serial EKG performed 3 hours later did not reveal new changes. Otherwise, other initial investigations were significant for stable macrocytic anemia to 9.9, acute kidney injury with a creatinine elevation to 1.53, elevated baseline troponin of 33 drawn at 5:25 p.m.. In the emergency department, the patient was loaded with aspirin 324 mg. Given the concerns for acute coronary syndrome, thepatient was admitted to the cardiology service for further management. CARD 2 Service (10/09/2024 - 10/12/2024): Upon arrival to the floor, the patient was afebrile and hemodynamically stable. Importantly, he waschest pain-free without any significant intervention being needed. The patient's situation was overall challenging as his history was variable without definitive evidence of chest pain ever had occurring. This was further complicate by the patient's previous history of significant bleeding likely 2/2 an undiagnosed bladder mass in the past due to initiation of Plavix and aspirin. However, given the patient's known coronary disease and the need for a invasive surgical procedure in the future given his known bladder mass, it was decided to pursue a diagnostic angiogram on 10/10/2024 to clarify the patient's coronary anatomy and to investigate evidence of an acute coronary lesion. The angiogram ultimately redemonstrated severe multivessel coronary disease (70% obstruction of mLAD, 70% obstruction of the proximal-LCx, 80% obstruction of the ramus, subtotal/total occlusion of the distal RCA,right PDA and right posterolateral segment with evidence of collateralization). While CABG was initially considered, it was felt that patient would most benefit from oncologic follow up prior to considering intervention for CAD. His creatinine was elevated on discharge day (1.79) but stable. We will repeat a BMP on Tuesday. CONSULTS ORDERED DURING THIS ADMISSION IP CONSULT TO CARE MANAGEMENT IP CONSULT TO DIETITIAN IP CONSULT TO CARE MANAGEMENT IP CONSULT TO ONCOLOGY CONDITION AT DISCHARGE stable Discharge instructions were provided to the patient and caregiver(s). Total time spent in discharge services today: 30 minutes. Cosigned by Iva Ascencio M.D., Ph.D. at 10/12/2024 4:14 PM CDT documented in this encounter Discharge Instructions * Discharge Instructions* Nya Covarrubias - 10/10/2024 7:22 AM CDT You were discharged from the [facility] CARD 2 Service. Please identify this service name if you call withquestions after hospitalization. documented in this encounter Medications at Time [...] 20 mg by mouth at bedtime. 03/19/2020 documented as of this encounter Progress Notes * Adry Gutierres, Pharm.D., R.Ph., [facility] - 10/12/2024 7:45 AM CDT Pharmacist Progress Note Reason for admission: Angina Unstable (HCC). Direct admit from preop evaluation PMH: CAD, DVT/PE (2020), former Smoker, Hyperlipidemia, TIA, flaccid hemiplegia, mild cognitive impairment, malignant neoplasm of bladder, and hypotension OBJECTIVE Neuro: APAP CV: Angina - metoprolol succinate 25 mg Daily HLD/TIA/CAD: aspirin 81 mg daily, rosuvastatin 20 mg Daily Neph: Baseline Scr 0.8 mg/dL;Estimated Creatinine Clearance: 37.3 mL/min (A) (by C-G formula based on SCr of 1.74 mg/dL (H)). /GI: senna, finasteride VTE ppx: held for procedure Medication Reconciliation: Held: Changed: New: TBD ASSESSMENT / PLAN Chronic multivessel CAD Intervention deferred given history of intolerance to DAPT. Patient reports not taking aspirin 81 mg daily at home. Retial this admission. Monitor for hematuria Uncertain if patient was taking metoprolol prior to admission. No fill history. Using inpatient forangina KEVIN - No dose adjustments recommended at this time Large bladder mass and bilateral hydronephrosis, found during workup of urinary retention and grosshematuria, concern for metastasis Patient unsure if he has been taking Bactrim for asymptomatic bacteria for upcoming surgery. Urologic surgery now cancelled indefinitely therefore stopped bactrim Discharge dependent on urology plan and SCr Adry Gutierres Pharm.D., R.Ph., BCCP * Clari Daniel M.D. - 10/11/2024 3:43 PM CDT Images from the original note were not included. [facility] CARD 2 PROGRESS NOTE SUBJECTIVE HISTORY OF PRESENT ILLNESS Hernandez Samayoa is a 78 year old male with PMHx of right MCA stroke, right frontal stroke with flaccid hemiplegia, right carotid endarterectomy, hyperlipidemia, DVT, CAD, dilated ascending aorta, and malignant neoplasm of bladder who is admitted for anginal workup prior to bladder surgery. INTERVAL EVENTS: No acute overnight events. Patient had a bowel movement overnight that had some bright red blood.that he says is normal for him and he is not concerned about it. He denies any chest pain or shortnessof breath. Urine remains without blood. OBJECTIVE PHYSICAL EXAMINATION General: Alert, interactive, not acutely ill. Skin: No rashes or lesions. Eyes: Pupils equal and round. Sclera anicteric. ENT: Hearing grossly intact. Lungs: Clear to auscultation. No wheezes or crackles. Heart: Regular rate and rhythm. Systolic murmur at the RUSB. Pitting edema bilaterally L > R. Abdomen: Soft, flat, bowel sounds normoactive, nontender, nondistended, no palpable masses or organomegaly. Neuro: Cranial nerves II-XII intact. Strength 5/5 in all extremities. Mental: Mood and affect congruent. Alert and oriented. Attention intact. No evidence of disorganized thinking. ASSESSMENT / PLAN Mr. Samayoa is a 78 y.o. male hospitalized on [facility] CARD 2 for workup of anginal symptoms prior to urology surgery. Cardiac catheterization was with diffuse disease however given patient's history of extensive hematuria requiring ICU stays, decision was made to avoid PCI. The bladder cancer is his most urgent issue currently and given his catheterization showed stable disease, we can wait on CABG. Urology and medical oncology both were consulted and recommended CT with lymph node biopsy today for further staging and prognostic data. # Unstable Angina v.s. Chronic Coronary Syndrome # Obstructive coronary artery disease # Hyperlipidemia # Hx MCA CVA and right frontal CVA # Prior right carotid endarterectomy # Aortic sclerosis - Patient with exertional chest pain over last few months - CCTA in 2019 with severe stenosis of small OM1 and distal RCA complete total occlusion - 10/09/24 exercise stress test with suboptimal result as patient did not reach 80% maximum predicted heart rate > Diagnostic cardiac catheterization with multivessel disease, will not pursue intervention to avoid DAPT given history of extensive bleeding > Resume aspirin 81 mg daily > Resumed home metoprolol succinate 25 mg daily > Rosuvastatin 20 mg daily # Blood loss anemia # Malignant neoplasm of the bladder #. Possible KEVIN stage I-II without history of CKD (baseline creatinine 0.7 - 0.8) #. Hx of hemorrhagic shock 2/2 severe gross hematuria in the setting of DAPT initiation for stroke (03/2020) - Diagnosed with bladder cancer 08/12/24, upcoming urologic surgery for removal (was scheduled for 10/11 but cancelled given cardiac concerns) - Gross hematuria, has resolved in last week and he states urine is now clear > Avoid DAPT if possible > Continue home finasteride 5 mg daily > Continue bactrim (scheduled for 3 days prior to surgery) > Urology following, decision regarding surgery is ongoing but likely will see medical oncology outpatient prior to any surgeries > Medical oncology recommended CT lymph node biopsy today VTE Prophylaxis: Held in setting of bleeding bladder mass. Surrogate Decision Maker: Spouse, Blanco. Living Situation Before Admission: Independent at home. Discharge Plan (equipment, therapy, and facility): Disposition planning ongoing Plan discussed with [facility] CARD 2 Integrity Engineer, Dr. Marroquin, who was present during coats portions of the evaluation today. Please page the [facility] CARD 2 service pager at [phone] with any questions. Clari Daniel PGY 1 Internal Medicine Personal Pager: [phone] 10/11/24 * Spencer Marroquin M.D. - 10/11/2024 2:07 PM CDT HOSPITAL PROGRESS NOTE This is a supervisory note. I have reviewed the laboratory and imaging data. I agree with the interval history and examination and have jointly developed the assessment and plan as documented today by Dr. Clari Daniel. ASSESSMENT / PLAN #1 Chronic multivessel coronary artery disease (based on coronary angiogram October 10, 2024) #2 Bladder mass with gross hematuria, urinary retention, and bilateral hydronephrosis #3 Acute kidney injury (baseline creatinine ~0.8 mg/dL) The patient is clinically stable without new symptoms to report. Telemetry has revealed no events. He has not had additional hematuria. His coronary angiogram yesterday showed severe multivessel coronary artery disease. He has a chronic total occlusion of the right coronary artery, severe disease in the mid LAD with diffuse disease more proximally, and severe disease at the ostium of the ramus. The PRODUCTION MATERIAL COORDINATOR of the right coronary artery receives collaterals from left. Fortunately, none of the coronary lesions appear acute, and the patient does not require urgent intervention. The patient also has reasonable targets for grafting if coronary artery bypass surgery is a consideration. Labs today show creatinine up to 1.74 mg/dL, which could be related to the contrast the patient received for his coronary angiogram yesterday. Leukocytes have increased to 12.8, but patient does not have clinical evidence of infection. Hemoglobin stable at 10.3 g/dL. PLAN: This is a challenging situation. The patient has significant multivessel coronary disease which appears chronic. He has been largely asymptomatic without heart failure or clear symptoms of angina, and his stress test from October 09, albeit at a low workload, showed no ischemia. While he may benefit from revascularization long-term, he does not require acute revascularization. The urology team no longer feels the patient is candidate for surgical resection of his bladder mass. They are concerned about metastatic disease. They recommended lymph node biopsy and medical oncology consultation, which we will obtain. The urology team also recommended hand irrigations as needed to mitigate hematuria. The patient is on his normal cardiac medical therapy, including aspirin, metoprolol succinate, and rosuvastatin, which we can continue. No indication for dual antiplatelet therapy or systemic anticoagulation at the current time, which is fortunate, given the patient's intermittent hematuria. Pending recommendations from the oncology team and urology team, we may be able to dismiss the patient to complete his evaluation as an outpatient. From a cardiac standpoint, plans for revascularization can be reassessed pending a more clear management plan for the patient's bladder tumor. Pharmacological stress testing as an outpatient may helpguide decisions regarding revascularization. MARGIN CODE: [id number] Spencer Marroquin M.D. 10/11/2024 2:07 PM CDT * Michaelle Nicole R.N. - 10/11/2024 9:58 AM CDT SUBJECTIVE Attempted to see patient to address discharge planning. OBJECTIVE Patient not seen at this time. ASSESSMENT Unable to complete assessment as patient was not available when I attempted to meet with him. He was on his cell phone, asked Veterinarian Epidemiologist to return later. PLAN Case Management will attempt to see patient at a later time, when available. * Adry Gutierres Pharm.D., R.Ph., [facility] - 10/11/2024 7:37 AM CDT Pharmacist Progress Note Reason for admission: Angina Unstable (HCC). Direct admit from preop evaluation PMH: CAD, DVT/PE (2020), former Smoker, Hyperlipidemia, TIA, flaccid hemiplegia, mild cognitive impairment, malignant neoplasm of bladder, and hypotension OBJECTIVE Neuro: APAP CV: Angina - metoprolol succinate 25 mg Daily HLD/TIA: rosuvastatin 20 mg Daily Neph: Baseline Scr 0.8 mg/dL;Estimated Creatinine Clearance: 41.9 mL/min (A) (by C-G formula based on SCr of 1.55 mg/dL (H)). /GI: senna, finasteride ID- UTI- Bactrim VTE ppx: held for procedure Medication Reconciliation: Held: Changed: New: TBD ASSESSMENT / PLAN Chronic multivessel CAD Intervention deferred given history of intolerance to DAPT. Patient reports not taking aspirin 81 mg daily at home. Retial of aspirin 81 mg daily starting today Uncertain if patient was taking metoprolol prior to admission. No fill history. Using inpatient forangina KEVIN - No dose adjustments recommended at this time Large bladder mass and bilateral hydronephrosis, found during workup of urinary retention and grosshematuria, concern for metastasis Patient unsure if he has been taking Bactrim for asymptomatic bacteria for upcoming surgery. RepeatUA with continued bacteria. Urologic surgery now cancelled indefinitely therefore team planning to stop bactrim Adry Gutierres Pharm.D., R.Ph., BCCP * Charla Childress M.D. - 10/10/2024 8:18 PM CDT UROLOGY - PROGRESS NOTE In brief, this is an 78yo male, initially established with urology for workup of gross hematuria and urinary retention, who has imaging findings concerning for advanced bladder cancer. He has a largebladder mass with clear extravesical extension (even into the right pelvic floor) and concerning lymphadenopathy. He also has bilateral moderate hydronephrosis, but making adequate urine and renal function was within normal limits at least at the time of our initial visit with him. He was arranged for TURBT 10/11/2024, mostly to obtain tissue diagnosis and potentially to treat anycause of urinary retention. Preoperative evaluations were concerning for unstable angina so he was admitted last evening 10/09 for further cardiac workup and intervention. A/P: I met with the patient and his family at the bedside this evening and discussed the below topics. The discussion was lengthy. They expressed good understanding. I also spoke with his Cardiology 2 team earlier in the evening, and they had some concerns about gross hematuria and possible need for DAPT in the future. #1- From a bladder cancer standpoint, his cross sectional imaging at this time is concerning for metastatic disease. A transurethral resection of the bladder (TURBT) would not give him any oncologic benefit if this is in fact true. I spoke with one of our urologic oncologists (Dr. Rojas) and the recommendation would be to obtain a tissue diagnosis via imaging guided biopsy (ideally of a lymph node) to confirm disease type and to confirm metastasis. The medical oncology team would then guide treatment decisions further for the patient. - I cancelled his TURBT that was slated for 10/11 - We recommend the patient have CT guided lymph node biopsy while inpatient, to expedite care and avoid contraindications with future antiplatelet/anticoagulant therapies - Medical oncology consult (and/or see if they would like to see him while he is here); otherwise, has an appointment for 10/17/2024 #2- From a gross hematuria standpoint, patients urine was clear yellow when I met with him. Regardless, he certainly is high risk for developing recurrent hematuria. Unfortunately, given the depth ofhis tumor and extravesical extension seen on cross sectional imaging, it is unlikely that a bladdertumor resection would be able to obtain control of the tumor enough to reduce his risk of gross hematuria. The risk for him to undergo anesthesia and the risk of iatrogenic worsening of gross hematuria is much higher. - There is no role for tumor resection for prevention of his gross hematuria at this time - Hematuria is expected to occur with large, invasive bladder mass; hand irrigations PRN for worsening hematuria and/or clots while in hospital and would be useful for patient/family to learn how to do this in the event it occurs at home #3- From a hydronephrosis standpoint, patient does have stable bilateral hydronephrosis confirmed on an ultrasound performed while inpatient. Clinically, he does NOT have any symptoms of obstruction.He is making urine, which would not be the case if he were to be obstructed completely bilaterally.When we met him, he had this level of hydronephrosis and his renal function was within normal limits. I do note that his renal function has declined, at least as evidenced on his labs from admission,but again, he continues to make urine and is asymptomatic. There are several other possibilities for his elevated creatinine, and until those are ruled out and/or other issues are optimized, we do not see a role for decompression at this time. If his renal function worsens without other cause, he becomes symptomatic (flank pain for example), or becomes anuric, our team should be alerted immediately. - No role for intervention for hydronephrosis currently - If he becomes symptomatic (flank pain), renal function worsens without other cause, or he becomesanuric, our team should be alerted immediately - Otherwise, will address this formally in the outpatient setting as indicated as no DAPT/anticoagulation changes are currently anticipated #4- From a urinary retention standpoint, there is a possibility the tumor is contributing to obstruction, but there are several other reasons he could have poor emptying. He should maintain the catheter. Further discussions can be had in the outpatient setting. - Maintain molina catheter for management of his urinary retention Electronically signed by: Charla Childress MD PGY-3 Urology Urology chief service pager: [phone] from [phone] Emergency call pager: [phone] from [phone] This was discussed with chief urology resident, Dr. Hayes. * Clari Daniel M.D. - 10/10/2024 12:46 PM CDT Images from the original note were not included. RST CARD 2 PROGRESS NOTE SUBJECTIVE HISTORY OF PRESENT ILLNESS Hernandez Samayoa is a 78 year old male with PMHx of right MCA stroke, right frontal stroke with flaccid hemiplegia, right carotid endarterectomy, hyperlipidemia, DVT, CAD, dilated ascending aorta, and malignant neoplasm of bladder who is admitted for anginal workup prior to bladder surgery. INTERVAL EVENTS: No acute overnight events. Patient was feeling well when I saw him this morning. He denied any chest pain. He clarified that he has not had chest pain in the recent week. He had significant pain withhis urinary catheter that was placed but this has resolved with repositioning. His last episode of chest pain was a few weeks ago. He denies any shortness of breath, palpitations, or lightheadedness. OBJECTIVE PHYSICAL EXAMINATION General: Alert, interactive, not acutely ill. Skin: No rashes or lesions. Eyes: Pupils equal and round. Sclera anicteric. ENT: Hearing grossly intact. Lungs: Clear to auscultation. No wheezes or crackles. Heart: Regular rate and rhythm. Systolic murmur at the RUSB. Pitting edema bilaterally L > R. Abdomen: Soft, flat, bowel sounds normoactive, nontender, nondistended, no palpable masses or organomegaly. Neuro: Cranial nerves II-XII intact. Strength 5/5 in all extremities. Mental: Mood and affect congruent. Alert and oriented. Attention intact. No evidence of disorganized thinking. ASSESSMENT / PLAN Mr. Samayoa is a 78 y.o. male hospitalized on RST CARD 2 for workup of anginal symptoms prior to urology surgery. Per record review, he has been having exertional chest pain described as a dull pain that occurs twice a week occasionally with exertion. He has known coronary artery disease with a CCTA in 01/2020 demonstrating severe stenosis of small OM1 and distal RCA complete total occlusion, per review it does not appear he has had intervention in the past. He had a exercise stress test done yesterday which did not demonstrate ischemia but he only reached 62% predicted maximum heart rate. Givenprior known coronary artery disease, concern for unstable angina, and suboptimal stress test we will proceed with diagnostic catheterization prior to urologic surgery. No intervention will be done aspatient has upcoming surgery for bladder cancer and we wish to avoid DAPT. Pending catheterization,we may initiate calcium channel marielle. He has bilateral lower extremity swelling, worse in the right leg, bilateral US for DVT was negative. It is possible this is due to lymphadenopathy compression. He does not appear volume overloaded on exam. He has a recent diagnosis of malignant neoplasm of the bladder and was scheduled to have surgery tomorrow. The surgery was cancelled due to the cardiac concerns. Recommendation for surgery pending cardiac catheterization results. He had hematuria as well but has not had it for the last week. Again,we wish to avoid DAPT given his history of hematuria and upcoming surgery. # Unstable Angina v.s. Chronic Coronary Syndrome # Obstructive coronary artery disease # Hyperlipidemia # Hx MCA CVA and right frontal CVA # Prior right carotid endarterectomy # Aortic sclerosis - Patient with exertional chest pain over last few months - CCTA in 2019 with severe stenosis of small OM1 and distal RCA complete total occlusion - 10/09/24 exercise stress test with suboptimal result as patient did not reach 80% maximum predicted heart rate > Diagnostic cardiac catheterization > Holding aspirin given bleeding > Resumed home metoprolol succinate 25 mg daily > Rosuvastatin 20 mg daily # Blood loss anemia # Malignant neoplasm of the bladder #. Possible KEVIN stage I-II without history of CKD (baseline creatinine 0.7 - 0.8) #. Hx of hemorrhagic shock 2/2 severe gross hematuria in the setting of DAPT initiation for stroke (03/2020) - Diagnosed with bladder cancer 08/12/24, upcoming urologic surgery for removal (was scheduled for 10/11 but cancelled given cardiac concerns) - Gross hematuria, has resolved in last week and he states urine is now clear > Avoid DAPT if possible > Continue home finasteride 5 mg daily > Continue bactrim (scheduled for 3 days prior to surgery) VTE Prophylaxis: Held in setting of bleeding bladder mass. Surrogate Decision Maker: Spouse, Blanco. Living Situation Before Admission: Independent at home. Discharge Plan (equipment, therapy, and facility): Disposition planning ongoing Plan discussed with RST CARD 2 Integrity Engineer, Dr. Marroquin, who was present during coats portions of the evaluation today. Please page the EMBI 2 service pager at [phone] with any questions. Clari Daniel PGY 1 Internal Medicine Personal Pager: [phone] 10/10/24 * Michaelle Nicole RMakN. - 10/10/2024 10:46 AM CDT SUBJECTIVE Attempted to see patient to address discharge planning. OBJECTIVE Patient not seen at this time. ASSESSMENT Unable to complete assessment as patient was not able to participate in assessment at this time. PLAN Case Management will attempt to see patient at a later time, when available. * Adry Gutierres Pharm.D., R.Ph., [facility] - 10/10/2024 7:09 AM CDT Pharmacist Progress Note Reason for admission: Angina Unstable (HCC). Direct admit from preop evaluation PMH: CAD, DVT/PE (2020), former Smoker, Hyperlipidemia, TIA, flaccid hemiplegia, mild cognitive impairment, malignant neoplasm of bladder, and hypotension OBJECTIVE Neuro: APAP CV: Angina-metoprolol succinate, 25 mg, oral, Daily HLD/TIA: rosuvastatin, 20 mg, oral, Daily at bedtime Neph: Baseline Scr 0.8 mg/dL;Estimated Creatinine Clearance: 41.8 mL/min (A) (by C-G formula based on SCr of 1.55 mg/dL (H)). /GI: senna, finasteride VTE ppx: held for procedure Medication Reconciliation: Held: Changed: New: TBD ASSESSMENT / PLAN Concern for unstable angina Cath deferred given history of intolerance to DAPT. Diagnostic angiogram planned today Aspirin loading dose given yesterday. Patient reports not taking aspirin 81 mg daily at home IV heparin infusion stopped Uncertain if patient was taking metoprolol prior to admission. No fill history. Using inpatient forangina TIA - assess if aspirin 81 mg daily should be resumed KEVIN - No dose adjustments recommended at this time Large bladder mass and bilateral hydronephrosis, found during workup of urinary retention and grosshematuria, concern for metastasis TUBR 10/11 cancelled Patient unsure if he has been taking Bactrim for asymptomatic bacteria for upcoming surgery. RepeatUA with continued bacteria. If urologic procedure is rescheduled, consider treating with 3 days Bactrim Adry Gutierres Pharm.D., R.Ph., BCCP * Alberto De Paz Pharm.D., R.Ph., [facility] - 10/09/2024 9:57 PM CDT Images from the original note were not included. Admission Medication History Note Adherence issues: Patient unsure of medications he is taking Medication list source: Patient, Care Everywhere or chart review, and Pharmacy or dispense records Medication related information: Reported stopping aspirin ~3 weeks ago for upcoming surgery. Reports Bactrim not yet started for upcoming surgery. Prior to Admission Medications Med List Status: Pharmacy Complete Set By: Alberto De Paz, Kathie.D., R.Ph., BCPS at 10/09/2024 9:57 PM Taking? Last Dose Informant Start Date End Date LT aspirin [address] tablet -- -- 07/15/20 -- Take 1 tablet (81 mg total) by mouth daily. Patient not taking: Reported on 09/27/2024 cyanocobalamin (Vitamin B-12) 1,000 mcg/mL injection Past Month -- 07/05/24 08/13/25 Inject 1,000 mcg intramuscularly every 30 (thirty) days. finasteride (PROSCAR) 5 mg tablet 10/09/2024 at Morning -- 04/16/20 -- Take 1 tablet (5 mg total) by mouth daily. metoprolol succinate (TOPROL-XL) 25 mg 24 hr tablet -- -- 01/28/20 -- Take 25 mg by mouth daily. nitroglycerin (NITROSTAT) 0.4 mg SL tablet Unknown -- 03/19/20 -- Place 0.4 mg under the tongue every 5 (five) minutes as needed for chest pain (Max 3 doses). If no relief 5 minutes after the 1st dose, seek medical attention immediately. May take up to 2 additionaldoses if needed. rosuvastatin (CRESTOR) 20 mg tablet Past Week -- 03/19/20 -- Take 20 mg by mouth at bedtime. sulfamethoxazole-trimethoprim (Bactrim DS) 800-160 mg per tablet -- -- 10/08/24 10/11/24 Take 1 tablet by mouth 2 (two) times a day for 3 days. Take for 3 days before surgery documented in this encounter H&P Notes * Spencer Marroquin M.D. - 10/10/2024 11:30 AM CDT This is a supervisory note. I met, interviewed, and examined Mr. Samayoa with the team. I agree with the history of present illness, past medical, surgical, social and family histories, as well as allergies, medications and review of systems as documented. I agree with the team's documentation, in addition to what I have noted below. CHIEF COMPLAINT/REASON FOR VISIT: Chest pain HISTORY OF PRESENT ILLNESS Mr. Samayoa is an 78-year-old male. He has multiple chronic medical conditions. He is a former smoker.He has hyperlipidemia. He has cerebrovascular disease, suffering a right MCA ischemic stroke (2016) followed by a right frontal stroke (based on MRI March 07, 2020). He had a right carotid endarterectomy (March 10, 2020). He had a DVT (diagnosed on April 12, 2020). From a cardiac perspective, a preoperative stress test (January 23, 2020) reported mild inferior wall ischemia. A coronary CTA (January 28, 2020) reported severe three-vessel coronary artery disease in the mid-LAD, distal right coronary artery, and a small obtuse marginal coronary artery. He did not undergo an invasive evaluation for coronary artery disease but rather has been managed medically. Last echocardiogram (outside institution, July 15, 2023) reported ejection fraction 70% with no regional wall motion abnormalities. More recently, the patient was diagnosed with a bladder mass. He presented on August 12, 2024 with urinary retention and difficulty voiding, and a CTA abdomen (August 12) revealed a 5 cm bladder mass. Subsequent urine cytology (August 16, 2024) revealed atypical urothelial cells. The patient was scheduled for a transurethral resection and urinary stent placement today. Yesterday, the patient saw my colleagues, Dr. Elisa Alva and Dr. Yariel Muniz, for a preoperativecardiac evaluation. They noted the patient reported increasing severity of chest pain with decreasing functional status and episodes of resting pain. A SPECT myocardial perfusion study (October 09) showed normal perfusion with ejection fraction 68%, but the patient's workload was low. They recommendedEmergency Department evaluation and subsequent admission to consider urgent coronary angiography. The patient presented to the emergency room and was admitted overnight. The overnight team did not administer any clopidogrel or IV unfractionated heparin. This morning, he reported to the team that he has not had any chest pain for 2 weeks. When I saw the patient, he could not tell me how long he has been having chest pain or when his last episode occurred. He does recall longstanding lower abdominal pain that has improved with urinary bladder emptying. He has not had any arrhythmia symptoms or heart failure symptoms. He has been dealing with hematuria for the last few weeks in the setting of his bladder mass. PHYSICAL EXAMINATION General: The patient is lying in bed. He appears somewhat groggy but in no acute distress. Skin: No chronic venous stasis changes in the lower extremities. Extremities: 2+ left bilateral pretibial edema. No significant right-sided pretibial edema. Lungs: Clear to auscultation bilaterally. Vessels : No jugular venous distention. Heart : Regular rate. Regular rhythm. Normal S1 and S2 with a soft 1/6 early to mid-peaking systolic ejection murmur at the base. No diastolic murmurs. No diastolic filling sounds. DIAGNOSTICS Labs (October 09): Creatinine 1.55 mg/dL, troponins 33 going to 31 going to 31 ng/L, hemoglobin 9.5 g/dL. Multiple electrocardiograms (October 09 and October 10): No ischemic changes. Kidney ultrasound (October 10): Bilateral hydronephrosis, right greater than left. Chest x-ray (October 09): No evidence of heart failure on my review. Lower extremity ultrasound (October 10): Negative for deep venous thrombosis. ASSESSMENT / PLAN #1 Chronic coronary artery disease (based on outside coronary CTA from January 28, 2020) #2 Bladder mass (scheduled for transurethral resection October 10, 2024) This is a challenging situation. The patient's history has varied. He told Drs. Alva and Flavio yesterday that he had progressive rest pain, and they were appropriately concerned for unstable angina. He told the team overnight he has not had chest pain for 2 weeks. He could not relay any history of chest pain to me today but rather reported lower abdominal pain that improved with urinary bladder emptying. He has never had an invasive assessment for coronary artery disease. Given varying history, need for upcoming procedures, and evidence of coronary disease based on cross-sectional imaging, I think weneed to assess his coronary arteries as definitively as possible. Any attempt at PCI would be complicated by his hematuria in the setting of his bladder mass, which has previously contributed to significant anemia. We therefore need to be cautious about any coronary intervention. Rather, I would prefer a diagnostic coronary angiogram to determine the severity of coronary artery disease and the need for any future intervention. That will help guide medical management and decisions about suitability for noncardiac surgery. It is reassuring to me that his SPECT yesterday showed normal perfusion.He was able to achieve a double product of over 20,000, so it is possible that represented adequatestress. Nevertheless, we will levi more diagnostic information about his coronary arteries with a diagnostic angiogram alone today. Otherwise, we will resume the patient's normal home medications and monitor closely for significantbleeding in the setting of hematuria. PLAN: Diagnostic coronary angiogram alone today. We will not administer IV unfractionated heparin or clopidogrel loading but rather reassess the need for intervention after we have diagnostic information and can discuss more with the surgical team. Resume patient's other normal home medications. Consider echocardiogram, pending coronary angiogram findings. We reviewed the aforementioned with the patient, and he was amenable with this plan. Spencer Marroquin M.D. CT CT Job ID: [id number] * Clarissa Calle Sr., M.D. - 10/09/2024 8:21 PM CDT CARDIOLOGY 2 TEAM ADMISSION NOTE SUBJECTIVE CHIEF COMPLAINT Chest Pain HISTORY OF PRESENT ILLNESS Hernandez Samayoa is a 78 y.o. male with a past medical history CAD, DVT/PE (2020), Former Smoker, Hyperlipidemia, TIA, flaccid hemiplegia, mild cognitive impairment, malignant neoplasm of bladder, and hypotension who is presenting for evaluation of his chest pain. Patient reports that he was at hisoutpatient Cardiology appointment regarding his upcoming bladder surgery when he told them about some chest pain that he had been having for the past couple of months. The fire alarm repairer recommended that he first fix any anginal symptoms before undergoing surgery to decrease the risk of any complications occurring while under anesthesia. On the floor patient is resting comfortably and is in no distr ess. He presented with a catheter in place in and the bag attached to his left leg. Mr. Samayoa reports that he has been having chest pain for the past few months. He states that the pain has both increased in frequency but not severity since June 2024. The Pain occurs every 3-4 days, is 7-8/10 in severity, and does not radiate. However sometimes he can go up to 1-2 weeks without having any pain atall. Pain is improved by deep breathing. Nothing makes it worse. The pain lasts for around 5 minutes and occurs only once that day. The pain feels like a dull pressure at the center of his chest and feels like something is on his chest. The quality of his pain has not changed in the past 1-3 years. However, whenever it does occurs it causes him to stop whatever it is he is doing. Per patient the his last episode of pain was 2 weeks ago. He denies any recent illnesses or fevers. Denies any shortness of breath, but notes that for the past couple of years he feels like he is unable to get a fullbreath especially when compared to when he was younger. Patient states that this has not stopped him from being very active. When prompted he endorses a frequent cough that occurs every day. The cough is productive of phlegm. His cough is worse in the mornings with increased phlegm production. Patient also notes that he has been having bilateral swelling of his lower extremities for the past week with with his left leg being worse than his right. Patient states that he has not been on any DVT/PE anticoagulation prophylaxis for the past several years. He was apparently told that he could stop for a while and he no longer needed to be on mcc anticoagulation. Patient has a history of hematuria likely secondary to his bladder cancer. When he was placed on aspirin and Plavix therapy in the past for management of his PE prophylaxis, he had a hemorrhagic crisis. Patient had recently started on Bactrim by his urologist due to an episode of asymptomatic bacteriuria. No other concerns. Events leading up to admission: Earlier today Hernandez Samayoa was being seen at the [facility] cardiology out patient clinic for pre-operative consultation on his upcoming TURBT with bilateral stent placement planed forJuly 2024. During the visit he mentioned to the fire alarm repairer's that he had been having on and off chest pain for the past couple of months which was worsening with time. He also stated that his last episode of chest pain was earlier in the day while waiting for his appointment. He described thechest pain as nonradiating and improved by deep breathing. He also mentioned that he had a bout of chest discomfort before coming into clinic. Based on his description of his symptoms a fire alarm repairer at the outpatient clinic were concerned for unstable angina and [facility] ED[facility] and possible urgent coronary Angiography. ED course: Upon arrival to [facility] ER Mr. Ng denied any chest pain, shortness of breath, or any other symptoms. He arrived accompanied by a few of his family members. At the ED he had a workupthat was significant for macrocytic anemia with a hemoglobin of 9.9, KEVIN with a BUN of 26 and a creatinine of 1.53, elevated adynamic troponins with a baseline value of 33 and a 2 hour value of 31. He had 2 EKGs done which were normal along with a chest x-ray that was normal as well. He was given 32 mg of aspirin while in the ED and transferred to the cardiology service for evaluation of his chest pain which was believed to be secondary to unstable angina. It was stated that he was not given clopidogrel due to his lack of symptoms. Interventions: Upon transfer to the Cardiology service: Upon transfer to the cardiology floor, patient was resting comfortably in his bed on room air. He denied any chest pain, SOB, or any other symptoms. Patient had a repeat EKG done that was overall normal but may have shown signs of possible infarct. Repeat EKGs and troponins were ordered for furtherevaluation. He was also made NPO at midnight in anticipation of any procedures the next day. Due tohis new onset bilateral pedal edema with his left leg being worse than his right, ultrasounds were ordered for further evaluation to rule out DVT. Bilateral kidney ultrasounds were also ordered for evaluation of possible hydronephrosis due to his history of bladder obstruction and to help rule out f luid overload. He was continued on his home rosuvastatin for management of his hyperlipidemia. Recent cardiac history: CAD, TIA, DVT/PE Risk factors: Hyperlipidemia, former smoker (20 pack-year), stopped around 25-30 years ago EC10/09/2024 (CARDS 1 service) Normal sinus rhythm ST and T wave abnormality, consider inferior ischemia When compared with ECG of 09-Oct-2024 17:12, T wave inversion now evident in Inferior infarct Reviewed by JIM Butts 10/09/2024 - ECG (ED) IMPRESSION: Normal sinus rhythm Normal ECG When compared with ECG of 09-Oct-2024 14:48, No significant change was found Reviewed by JAMISON Butts cardiac perfusion rest and stress SPECT - 10/09/2024 IMPRESSION: 1. Normal perfusion study? no scintigraphic evidence [...] are no prior nuclear studies for comparison Echo TTE: 07/20/2023 1. Normal left ventricular size, normal wall thickness, normal global systolic function, calculatedEF of 70 %. 2. The aortic valve is sclerotic, no stenosis and no regurgitation. 3. The mitral valve is sclerotic, trace mitral regurgitation. 4. The ascending aorta is dilated with a maximal diameter of 4.4 cm. 5. The aortic sinus is dilated with a maximal diameter of 3.8 cm. Chest imaging: Chest X-Ray - 10/09/2024 IMPRESSION: No significant change since CT of the chest from 10/01/2024. No focal consolidation, pneumothorax, orpleural effusion. Normal cardiac silhouette. Right mediastinal convexity, which corresponds to the dilated ascending aorta seen on the CT scan from 10/01/2024. Partial visualization of postoperative changes lumbar spine. Coronary CT Angio - 01/2020 Impression: severe stenosis of small OM1 and distal RCA PRODUCTION MATERIAL COORDINATOR. Social History: Former Smoker, quit 25 - 30 years ago. 20 pack year history. Cannibals use Family History: No FHx for premature coronary disease in parents and siblings. OBJECTIVE VITAL SIGNS Temperature: [36.3 ??C-36.7 ??C] 36.3 ??C Heart Rate: [48-70] 48 Resp Rate: [14-21] 20 Blood Pressure: (112-156)/(64-79) 112/64 SpO2: [93 %-98 %] 96 % Height: [160 cm-172.7 cm] 172.7 cm Weight: [80.5 kg-80.8 kg] 80.7 kg BSA (Calculated - sq m): [1.89 sq meters-1.97 sq meters] 1.97 sq meters BMI (Calculated): [27.1 kg/m??-31.6 kg/m??] 27.1 kg/m?? Pulse Rate: [56-69] 69 PHYSICAL EXAMINATION General: no acute distress, resting comfortably HEENT: normocephalic, atraumatic, EOMI Pulmonary: clear to auscultation bilaterally Cardiovascular: regular rate and rhythm. Aortic systolic murmur best hear with patient lying supine. Abdominal: nontender, nondistended, no masses palpated Extremities: warm and well-perfused. Bilateral pedal edema with the L>R. Neurologic: alert, oriented to person, place, time LABS Recent Results (from the past 72 hours) CBC with Differential, Blood Collection Time: 10/09/24 5:25 PM Result Value Hemoglobin 9.9 (L) Hematocrit 29.7 (L) Erythrocytes 2.97 (L) MCV 100.0 (H) RBC Distrib Width 13.2 Platelet Count 308 Leukocytes 9.2 Neutrophils 6.87 (H) Lymphocytes 1.42 Monocytes 0.73 Eosinophils 0.11 Basophils 0.04 Basic Metabolic Panel Collection Time: 10/09/24 5:25 PM Result Value Potassium, P 4.8 Sodium, P 134 (L) Chloride, P 99 Bicarbonate, P 24 Anion Gap, P 11 BUN (Blood Urea Nitrogen), P 26 (H) Creatinine 1.53 (H) Estimated GFR (eGFR) 46 (L) Calcium, Total, P 9.0 Glucose, P 108 Troponin T, Baseline with 2 Hour/6 Hour Reflex Biomarker Panel Collection Time: 10/09/24 5:25 PM Result Value Troponin T, Baseline, 5th gen 33 (H) Prothrombin Time (PT) Collection Time: 10/09/24 5:25 PM Result Value Prothrombin Time, P 12.4 INR 1.1 APTT (Activated Partial Thromboplastin Time) Collection Time: 10/09/24 5:25 PM Result Value Activated Partial Thrombopl Time, P 28 Troponin T, 2 Hour with 6 Hour Reflex, 5th Gen Collection Time: 10/09/24 7:33 PM Result Value Troponin T, 2 hr, 5th gen 31 (H) 2H Delta -2 2H Delta Interp Not Changing Type and Screen (with Reflex Antibody ID) Collection Time: 10/09/24 11:25 PM Result Value ABORh O Neg Antibody Screen Negative Type & Screen Expiration 10/12/2024 23:59 Testing Location [place] CBC without Differential Collection Time: 10/09/24 11:30 PM Result Value Hemoglobin 9.5 (L) Hematocrit 28.2 (L) Erythrocytes 2.87 (L) MCV 98.3 (H) RBC Distrib Width 13.1 Platelet Count 280 Leukocytes 8.4 Troponin T, 5th Generation Collection Time: 10/09/24 11:30 PM Result Value Troponin T, 5th gen 31 (H) Renal Function Panel Collection Time: 10/09/24 11:30 PM Result Value Potassium, S 4.5 Sodium, S 137 Chloride, S 103 Bicarbonate, S 24 Anion Gap 10 BUN (Blood Urea Nitrogen), S 25 (H) Creatinine 1.55 (H) Estimated GFR (eGFR) 45 (L) Calcium, Total, S 8.4 (L) Glucose, S 115 Albumin, S 3.2 (L) Phosphorus (Inorganic), S 3.5 ASSESSMENT / PLAN Hernandez Samayoa is a 78 y.o. male with a past medical history CAD, DVT/PE (2020), Former Smoker, Hyperlipidemia, TIA, flaccid hemiplegia, mild cognitive impairment, malignant neoplasm of bladder, and hypotension who is admitted for evaluation of his chest pain. Patient reports that he has been having chest pain on and off for the past few months. He states that his chest pain began worsening around June 2024. His chest pain increased in frequency but remained the same in severity. Typically his chest pain occurs around once every 3 to 4 days. However, he can go up to 2 weeks without having any pain. His last episode of chest pain was 2 weeks ago per patient. However during his visit to the [facility] cardiology outpatient clinic regarding his upcoming Bladder Cancer Surgery he mentioned to them that he had had pain earlier in that day (10/09/2024). Per patient when he does have chest pain it only lasts for around 5 minutes. Nothing makes it worse. However, it is improved by deepbreathing. Patient's history is suspicious for unstable angina due to the initial worsening of his symptoms over a period of time, but since to his last episode of chest pain was 2 weeks ago a full ACS may not be indicated at this time. Also due to his EKGs which have remained unchanged from previous and his adynamic troponin values chronic coronary syndrome may be more fitting for his constellation of symptoms. At this time I believe that 6 hr troponins and repeat EKGs will be needed to rule out the possibility of underlying ischemic changes. Patient also presented with obvious swelling of his bilateral lower extremities, with his left leg being noticeable larger than his right. Due to his previous history of DVT/PE there is a high clinical suspicion of DVT reoccurrence. Especially since the patient stated that he has not been on anticoagulant DVT prophylaxis for a number of years. However, patient also has a history of a larger bladder mass and has been and had been hospitalized earlier this year for urinary retention requiring bladder cath. Patient's pedal edema may be secondary to fluid retention rather than DVT reoccurrence. Patient's labs also showed elevated BUN and creatine which may be indicative of KEVIN. Though patient's Urologist also recently started him on Bactrim for treatment of asymptomatic bacteruria. Bactrim has been known to cause elevations in creatine levels. Further evaluation will be needed to rule out the possibility post renal KEVIN secondary to urinary tract obstruction. Will order bilateral lower extremity ultrasounds to rule out DVT and bilateral kidney ultrasounds to rule out hydronephrosis. At this time the Differential diagnosis for patient's Chest pain includes unstable angina v.s. chronic coronary syndrome. # Unstable Angina v.s. Chronic Coronary Syndrome - Initial EKG obtained on the Cardiology floor showed t wave inversions on Lead 3 which were present on his previous EKG. We ordered a repeat EKG for further evaluation. - Will consider reaching out to patient's to obtain a more accurate history. - Continued patient on his Nitroglycerin PRN even though he states that he has never used it. - Ordered repeat troponins for further evaluation. - Patient will be made NPO after midnight in preparation for any potential procedures scheduled tomorrow. # DVT v.s. Fluid Retention # KEVIN - Patient presents with new onset bilateral pedal edema with his L>R. He also has a history of DVT/PE and has not been on prophylactic anticoagulation for the past few years. He has a wells score of 3-4. - Started patient on Low intensity Heparin. -Ordered a bilateral Lower Extremity Ultrasound for DVT evaluation. - Ordered bilateral kidney ultrasounds for evaluation of Hydronephrosis due to underlying obstruction. - Consider a urology consult for further evaluation of his KEVIN, though his elevated creatinine levels may be secondary to his Bactrim medication which he recently began for treatment of asymptomatic bacteriuria. 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 His hemoglobin has downtrended since his last CBC on 08/14/2024 showed a hemoglobin of 11.8. - Due to his history of hematuria and hemorrhagic crisis while on multiple anticoagulants in the past we will continue him on aspirin alone at this time. # Hyperlipidemia - Continue on home rosuvastatin. PT/OT: No orders at this time. VTE prophylaxis: therapeutic anticoagulation Code status: Code status reviewed - Full Code Disposition: Home Clarissa Calle MD Internal Medicine, PGY-1 Pager: [phone] * Mario Musa M.D. - 10/09/2024 7:32 PM CDT [facility] C[facility] 2 SENIOR CYBER SPECIAL AGENT SUPERVISORY ADMISSION NOTE SUBJECTIVE Mr. Samayoa is a 78 y.o. year old male who initially presented in the outpatient setting for a preanesthetic medical evaluation for a surgical evaluation for a bladder mass but was describing worsening chest discomfort concerning for ACS, and is now admitted to the [facility] CARD 2 service for further management and cares. Brief Summary of Events: Prior to this admission, the patient was being evaluated on the same day by outpatient Cardiology for a preoperative/pre anesthetic medical evaluation for a planned transurethral resection of his bladder tumor on 10/11/2024. During that visit, the patient described to the providers that he has beenhaving increasingly more frequent chest discomfort. He reportedly has a known history of chronic stable angina. Given the concerns for possible acute coronary syndrome, the patient was recommended togo to the emergency department for further evaluation. Upon arrival to the emergency department, the patient was hemodynamically stable and afebrile with normotensive blood pressures. Presenting EKG showed NSR without significant changes concerning for ischemia. Serial EKG performed 3 hours later did not reveal new changes. Otherwise, other initial investigations were significant for stable macrocytic anemia to 9.9, acute kidney injury with a creatinine elevation to 1.53, elevated baseline troponin of 33 drawn at 5:25 p.m.. In the emergency department, the patient was loaded with aspirin 324 mg. Given the concerns for acute coronary syndrome, thepatient was admitted to the cardiology service for further management. Upon arrival to the floor, the patient was afebrile and hemodynamically stable. Importantly, he waschest pain-free without any significant intervention being needed. Of note, the patient is not the greatest historian. Regarding his chest discomfort, he shares that for several years, his discomforthas been quite stable occurring anywhere between once a week to once a month. He describes his chest discomfort as a dull pressure in the central portion of his chest that feels like something small is sitting on his chest. He shares that the discomfort does not always come on with exertion, and actually shares that the chest discomfort may more frequently occur upon rest. Activities that may causes chest discomfort to precipitate include doing laundry/house chores. Again, he shares that this has been the quality of his chest discomfort for the last 1-2 years. He states that the chest discomfort typically lasts anywhere between 5 and 10 minutes, usually causing him to catch his breath. It is typically self- resolving. Of note, he has never tried nitroglycerin to help his chest discomfort in the past. Approximately in June of 2024, the patient shares that he has been having worsening chest discomfort. Specifically, he shares that the chest discomfort has been worsening from a frequency perspective. He states that since that time, his discomfort has began to occur occasionally 2-3 times a week. However, he explicitly shares that this is not a regular occurrence and that he can still go severalweeks without having another episode of chest discomfort. As it pertains to the quality, severity, duration and characteristics of his chest discomfort, he shares that all these pertinent details have remained stable. He also has not noticed any provocative features such as worsening quality with exertion. Specifically, the patient shares that he is still able to walk several blocks and still do the same amount of housework/chores without necessarily reproducing the chest discomfort. He also shares me that his last episode of chest discomfort was approximately 2 weeks ago prior to this admission. He has not had any chest discomfort in that time period or today. He further denies any recent fever, chills, worsening dyspnea at rest, nausea/vomiting, abdominal pain, gross hematuria, recent infections. He does share with me that he has been off his Eliquis medication for several years afterbeing told by his local physician that he did not have take it anymore. Similarly, he was told to hold his aspirin for approximately the last 3 weeks. Additionally, over the last month, the patient endorses worsening lower extremity edema, markedly more significant of the left lower extremity compared to the right lower extremity. He is not endorse any recent trauma or surgical interventions, or any other provocative factors that may have caused his edema to occur. He also has not had gross hematuria in over the last month. Relevant cardiac comorbidities: Coronary Disease: Severe obstructive, multivessel CAD with moderate/severe stenosis of the LAD (significant flow limitations on FFR), severe ostial stenosis of OM1 (not flow limiting on FFR), severe stenosis of the third marginal and diffuse RCA disease with evidence of total/subtotal occlusion (Outside CT chest/coronary angiogram 01/28/2020) Chronic stable angina, managed medically without prior revascularization (negative NM perfusion stress test but with limited exercise capacity, 10/09/2024) Heart Function/Structural: No documented structural or significant valvular disease (TTE 07/15/2023) Rhythm: None documented CV Risk Factors: HLD (LDL-C 62, 06/27/2024) Dilated ascending aorta (44 mm, TTE 07/15/2023) 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) and right frontoparietal stroke (02/2020) 2/2 severe right ICA stenosis s/p right CEA (03/10/2020) Hx of smoking tobacco use (> 20PYH, quit 1999) Hx of LAZARO s/p uvulopalatopharyngoplasty, not on CPAP Non-cardiac Medical Comorbidities: Possible KEVIN stage I-II without history of CKD (baseline creatinine 0.7 - 0.8) in setting of possible Bactrim use Large bladder mass with BL hydronephrosis with enlarged lymph nodes without evidence of distant metastasis Asymptomatic bacteruria s/p presumed Bactrim treatment Asymmetric BLLE edema Hx of hemorrhagic shock 2/2 severe gross hematuria in the setting of DAPT initiation for stroke (03/2020) Hx of DVT/PE (2020) Chronic macrocytic anemia GERD Mild cognitive impairment Relevant Cardiac Medications: Aspirin 81 mg once daily, metoprolol succinate 25 mg once daily, Crestor 20 mg once daily, SL nitroglycerin as needed I have reviewed the current medication list. OBJECTIVE VITAL SIGNS Temperature: [36.7 ??C] 36.7 ??C Heart Rate: [59-64] 59 Resp Rate: [14-21] 18 Blood Pressure: (126-156)/(67-79) 131/72 SpO2: [94 %-98 %] 96 % Height: [160 cm-168.2 cm] 160 cm Weight: [80.5 kg-80.8 kg] 80.8 kg BSA (Calculated - sq m): [1.89 sq meters-1.94 sq meters] 1.89 sq meters BMI (Calculated): [28.5 kg/m??-31.6 kg/m??] 31.6 kg/m?? Pulse Rate: [57-65] 59 PHYSICAL EXAM General: Alert, interactive and sitting comfortably. No acute distress. Eyes: EOMI. PERRL. No scleral icterus ENT: JVP is not elevated on examination. Oral mucosa is moist Heart: Regular rate and rhythm. 2/6 systolic murmur heard best along the right upper sternal border. S1-S2 intact. No accentuated P2 Lungs: Largely clear to auscultation bilaterally on anterior and posterior auscultation. There are decreased breath sounds to the bases bilaterally. There are no significant rales or wheezes Abdomen: Soft, nontender and nondistended Extremities: The bilateral lower extremities are warm and well-perfused. The left lower extremity has a catheter bag attached and has up to 3+ pitting edema. The right lower extremity is noticeably smaller but also with the edema up to 1+. There was no distinct erythema of the extremities bilaterally. There was no tenderness to palpation along the calves Neuro: Alert and oriented x3. The patient was able to participate in the conversation fully but wasrather slow and lethargic and answering questions. He seemed to have some difficulty remembering some details, though with continuous prompting, he was able to provide further information. DIAGNOSTICS I have personally reviewed the laboratory data and imaging since admission, and in/outs for past 72hours. ASSESSMENT / PLAN #. Chest discomfort, query chronic coronary syndrome on backdrop of stable angina vs unstable angina #. 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 Chronic stable angina, managed medically without prior revascularization (negative NM perfusion stress test but with limited exercise capacity, 10/09/2024) #. Possible KEVIN stage I-II without history of CKD (baseline creatinine 0.7 - 0.8) in setting of possible Bactrim use #. Large bladder mass with BL hydronephrosis with enlarged lymph nodes without evidence of distant metastasis #. Asymmetric BLLE edema #. Hx of hemorrhagic shock 2/2 severe gross hematuria in the setting of DAPT initiation for stroke (03/2020) #. HLD (LDL-C 62, 06/27/2024) #. Asymptomatic bacteruria s/p presumed Bactrim treatment #. Hx of DVT/PE (2020) #. Chronic macrocytic anemia #. 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 Hx of smoking tobacco use (> 20PYH, quit 1999) #. Hx of LAZARO s/p uvulopalatopharyngoplasty, not on CPAP Mr. Samayoa is a 78 y.o. year old male who initially presented in the outpatient setting for a preanesthetic medical evaluation for a surgical evaluation for a bladder mass but was describing worsening chest discomfort concerning for ACS, and is now admitted to the [facility] C[facility] 2 service for further management and cares. This is a very difficult situation for a number of reasons. He describes worsening of his angina symptoms with respect to frequency since June of 2024, but does not believe it has worsened in terms of severity/duration/characteristic and does not feel that it has worsened in relation to provocative factors. He also shares that though there may be times his symptoms occur twice in one week, he may go another 2 weeks without symptoms occurring again. Though he occasionally has discomfort at rest, he shares that this has been the case even prior to June of 2024 for the last 1-2 years. Finally, he shares that his last episode of chest discomfort was 2 weeks ago and he has not had any chest discomfort today. Although the patient does have some evidence of cognitive slowing, I spoke with him for a prolonged period of time to clarify these details. Despite this, it seems that he has sharedwith our outpatient colleagues prior to admission that he had an episode of chest discomfort just prior to the office visit and had more frequent chest discomfort, maybe around 2x per week. I attempted to call the patient's spouse for collateral, but was unable to reach her tonight. At this time, the patient is completely chest pain free and received an aspirin load in the ED. His troponins were adynamic and his EKGs thus far have not demonstrated significant ischemic changes. For these reasons, I am inclined to think the patient's symptoms are more reflective of chronic coronary syndrome. Itcould be reasonable to start the patient on a heparin drip with a Plavix load as a precautionary gurmeet sure. However, I am hesitant not only because of his story but also because the patient has a history of hemorrhagic shock 2/2 gross hematuria in 2020 after receiving just aspirin and Plavix for stroke treatment (possibly related to an undiagnosed bladder mass at the time). He has more recently just been without gross hematuria in the last month but he has a known large bladder mass and his UA still indicates some degree of microscopic hematuria. Additionally, his hemoglobin at this time demonstrates a value of 9.9 which is 2 points lower compared to his recent Hgb value on 08/14/2024 which could reflect persistent occult bleeding given his microscopic hematuria. I do feel that his bleedingrisk could be rather high given his history and associated comorbidities. I will hold off on committing the patient to a Plavix load but I do think starting the patient on heparin is reasonable primarily because of the concerns regarding a possible LLE DVT (as described below). In the interim, we will follow serial EKGs, a 6 hour troponin and the patient's clinical symptoms to guide further therapy as needed. If there are significant developments, then we can certainly alter the plan. If his presentation later is concerning for NSTE-ACS, his current ULISES score is 4 with a SHIRA score of 123. Additional issues include the patient's possible KEVIN and asymmetric BLLE edema. His creatinine is much more elevated compared to his more recent baseline and is concerning for an KEVIN. The biggest concern is whether or not the patient is developing worsening obstruction as he is known to have bilateral hydronephrosis with ureteral obstruction Interpretation is difficult as the patient was started on double strength Bactrim twice daily just recently to treat asymptomatic bacteruria in anticipation of the upcoming surgical procedure. However, the patient was unable to reliably share if he had been taking the Bactrim or not (though he was able to share the other medications he has been taking).It would be best to proceed with evaluation with a bladder/renal US to assess for significant signsof obstruction though this will likely not be done until the morning. We will follow the patient's creatinine tonight and may consider a noncontrast CT abdomen for further evaluation. Also, the patient's asymmetric BLLE edema is highly concerning for a DVT given the concerns for malignancy and history of DVT in the past. He does not have hypoxemia and he is not tachycardic, so I do not have higher suspicions for a large pulmonary embolism. However, the possibility of a smaller PE should can notbe definitively ruled out. We will attempt to get a DVT US though I do not anticipate this will be d one until the morning. Based on the Well's Criteria, the patient's risk is high and I think it would be reasonable to start him on treatment until further evaluation is completed. Given the reasons shared above, I will start the patient on a lower intensity heparin drip before thinking about continuing him to a high intensity. Summary of Plan: - repeat CBC, RFP, UA and 6 hour troponin value later this evening. Serial EKGs - close monitoring of patient's symptoms - NPO at midnight for now - will consider the need for CT abdomen/pelvis without contrast pending creatinine trend - orders placed for both DVT US and renal US, though may not happen until the morning - will start patient on low intensity heparin for now given high DVT risk to see how he does - may consider urology consultation in the morning depending on concerns for worsening obstruction - type and screen in case transfusions are needed - will hold off on Plavix for now Bundle of Care: #. Code Status: Full. #. Surrogate Decision Maker: Surrogate Decision Maker: Spouse, Beret. #. Access/Lines: chronic molina. Right 20G PIV. #. DVT Prophylaxis: low intensity heparin. #. GI Prophylaxis: Not Indicated.. #. Diet/Nutrition: general diet. NPO at midnight #. Family Update: completed at bedside. #. Disposition: floor cares. This is a supervisory note for Dr. Calle. Please refer to their excellent note for further detailsregarding the patient's history and plan. The assessment and plan will be formally discussed with the [employer] CARD 2 Integrity Engineer, Spencer Arenas M.D., within 24 hours. Please page the [facility] 2 service pager with any questions. Mario Musa M.D. PGY-3 Internal Medicine Residency Program documented in this encounter Consult Notes * Adan Rebolledo M - 10/12/2024 11:09 AM CDT Occupational Therapy Acute Hospital Inpatient Evaluation/Treatment SUBJECTIVE Patient's Name: Hernandez Samayoa Referring/Attending Provider: Iva Ascencio M.D. Reason for Referral: Occupational Therapy Evaluation and Treatment Onset Date: 10/09/2024 PERTINENT MEDICAL / SURGICAL HISTORY: Medical History[1] Surgical History[2] History of Present Illness: Hernandez Samayoa is a 78 y.o. male who was admitted to [facility] in [place] on 10/09/2024 for Other chest pain [R07.89] Angina Unstable (HCC) [I20.0] Pain Chest [R07.9]. Relevant Medical History: S/p coronary angiography on 10/10/2024 due to chest pain. Of note, patienthas advanced bladder cancer. Precautions Other Precautions: Cardiac precautions (monitor HR and BP) Falls screen: Fall in the last 12 months: No Are you fearful of falling: No Pain Assessment: Pain Ratin/10 on a 0-10 point scale Patient/Caregiver Goals: No goals stated Subjective Comments: Agreeable to therapy session with encouragement. Home Living and Equipment: Lives With: Significant other Receives Help From: Family, Home health (Patient's significant other receives home health services for Alzheimer's and household tasks) Type of Home: House Home Layout: Two level Home Layout Comments: There is a bedroom and bathroom on both levels Home Access: Level entry Home Layout Comments: There is a bedroom and bathroom on both levels Bathroom Shower/Tub: Walk-in shower Bathroom Toilet: Standard Bathroom Accessibility: Yes How Accessible: Accessible via walker Home Adaptive Equipment: None Gait Devices Owned: Cane Bathroom Equipment: Grab bars in shower, Hand-held shower head Prior Level of Function and Mobility: ADL Assistance: Independent IADL/Homemaking Assistance: Modified independent IADL/Homemaking Assistance Comments: Receives cleaning services 1-2x a week and assistance for shopping Driving: Independent Level of [place]: Independent Gait Devices/Wheelchair Used: Cane Gait Devices/Wheelchair Used Comments: Occasionally uses a cane Dominant Hand: Right Occupational Role: Retired 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 No concerns during chart review and the patient had nosigns or symptoms consistent with vital changes during therapy session. Evaluation Assessment: STRENGTH: Not formally assessed but appears within functional limits based on observation BALANCE: Static Sitting: Good (Maintains balance without support) Dynamic Sitting: Good (Maintains balance without support) Static Standing: Good (Maintains balance without support) Dynamic Standing: Fair (Maintains balance with handheld assist) ACTIVITY TOLERANCE: Endurance: Tolerates 10-20 minutes of activity Outcome Measures: AM-[facility] Inpatient Short Form: Putting on and taking off regular lower body clothing?: A Little Putting on and taking off regular upper body clothing?: None Taking care of personal grooming such as brushing teeth?: None Bathing (including washing, rinsing, drying)?: A Little Toileting, which includes using toilet, bedpan, or urinal?: Total Eating meals?: None Daily Activities Raw Score (max 24): 19 Daily Activities Standardized Score: 40.22 Interpretation: Based on scoring guidelines using the raw score value: Those going to home had an average score at or above 18 Those going to facility had an average score at or below 17 Clinicians answer the AM-PAC Inpatient Short Form based on observed patient activity and/or clinical judgment (patient can be scored without physically performing each activity). The AM-PAC is one ofmany factors to consider when discharge planning. Cognition: - Cognitive Assessment Method: therapist observations, cognitive screening results - Orientation: oriented x4 - Following Commands: follows all commands without difficulty - Executive Functioning: impairments with initiation of task - Assessed functional cognition with non-standardized medication management task. Provided verbal and visual cueing for morning and evening pillboxes. Patient was able to correctly identify 'as needed medications' and organized them as such. Patient incorrectly placed 1/5 medications, placing extra medications prescribed for the morning into the evening pillbox. During the task, the patient did not demonstrate a safe system for organizing and identifying medications. For instance, patient left all pill bottles open without a method to distinguish the prescription instructions associated with e ach specific medication. Therapeutic Interventions: FUNCTIONAL TRANSFERS: SIT<>STAND - Assist Level: supervision/set-up - Device: cane and gait belt - Surface: chair - Therapist Delivery: assessed - Assist/Cues Provided: none FUNCTIONAL MOBILITY: Mobility performed to practice household distances with supervision/stand by assistance and cane and gait belt. Patient ambulated approximately 2 x 113 feet with cane and gait belt. Patient demonstrated minor loss of balance when attention was divided, requiring assistance from therapist to self-correct. Patient tolerated activity well, declining dizziness or fatigue. Stair Navigation: Navigated 10 steps to simulate home environment. Patient demonstrated good safetyawareness, exhibiting proper use of cane. Education/Training Provided: Provided education on role of occupational therapy in the acute setting. Collaborated with patient and/or family on goals and plan of care. Bathroom DME: - Educated patient/caregiver regarding recommended use of bathroom safety equipment to optimize safety during bathing and toileting. Recommended DME: shower chair, grab bars Home Safety/Fall Prevention: - Educated patient/caregiver regarding home safety and fall prevention strategies to promote safetyand independence including use of recommended assistive device, wearing non-slip footwear, ensuringclear pathways, removing throw rugs, and good lighting throughout the home. Handouts provided: Bathroom Safety Equipment [id number], Preventing Falls CX2043-72, Home Safety Suggestions [id number], Adaptive Equipment Catalog/List of Vendors Team Communication: The patient's status was discussed and coordination of care occurred with RN, PT Patient was left in bedside chair at end of session with call light in reach, all needs met and questions answered. Assessment Discharge Therapy Needs - OT: Ongoing skilled occupational therapy If skilled therapy is recommended, skilled therapy can include occupational therapy provided in home health, outpatient or post-acute facility. The location of these services is determined by patient's care team in partnership with patient/family. Level of Care Needed - OT: Assistance with medication set up/administration, Assistance with financial professional, Assistance with transportation, Assistance with shopping, Assistance with meal preparation, Assistance with housekeeping Barriers to Discharge Home: Limited caregiver support, Safety concerns Barriers to Discharge Comments: Patient is the primary caregiver for his who is diagnosed withAlzheimer's. Patient presents safety concerns with medication management Recommended Adaptive Equipment - OT: Shower chair with back Clinical Impression: Currently, patient presents with impairments including limited endurance, cardiopulmonary impairments, cognitive deficits, and safety concerns resulting in functional deficits including impaired functional mobility and decreased independence with self care tasks. Assessed cognition with medication management task, patient incorrectly placed 1/5 medications and observed difficulty with task organization, identifying errors, and flexible thinking. Provided multiple verbal and visual prompts to cue patient to appropriate pillbox (AM vs PM). No present concerns for basic ADLs, such as showering, grooming, dressing, however performance in simulated medication management raised concerns for insight into safety with higher complexity tasks such as financial professional, shopping, meal preparation, and driving. Due to patient's need for multiple verbal prompts to initiate task, follow appropriate sequencing, and correct errors, there are safety concerns related to meal preparation, particularly when using of oven or stove. Considering driving, patient may have difficulty with tasks requiring sustained attention, quick-decision making, and safe navigation due to observed impairments. These challenges may pose safety risks and warrant further evaluation before resuming driving. Impairments may impact his ability to accu rately track expenses, pay bills on time, and manage budgeting tasks independently. This may also provide insight into underlying cognitive deficits that impact the patient's ability to complete shopping tasks, such as planning, decision-making, and managing money effectively. Given the patient's current role as a caregiver for his significant other, external support from family or community services is recommended to ensure safety and support daily responsibilities. From an OT perspective, discharge with supervision assistance for medication management, driving, shopping, and finances is reasonable at this time. The patient will benefit from ongoing occupational therapy services while hospitalized in order to improve engagement and independence in meaningful occupations. In-Hospital Activity and Mobility Recommendations: - Transfer into chair 3x/day with stand by assistance. - Recommend position changes every 2 hours - Ambulate to bathroom for toileting - Eat ALL meals in chair - Active engagement in daily self-care routine (oral cares, face washing, combing hair) - Maintain typical day/night routine and incorporate sleep hygiene strategies Plan OT Plan Comments: Continue to monitor cognition (Tier 3), assess standing tolerance, provide medication management strategies Functional Goals: OT Goal #1: Patient will engage in Tier 3 cognitive screens to inform safe discharge planning OT Goal #1 Status: Progressing OT Goal #2: Patient will demonstrate understanding of cognitive strategies to ensure safe medication management by discharge OT Goal #2 Status: Progressing OT Goal #3: Patient will verbalize and demonstrate understanding of adaptive bathroom equipment to maximize safety by discharge OT Goal #3 Status: Achieved Progress: Progressing toward goals Rehab potential: Mr. Samayoa has good potential to achieve established occupational therapy goals within the time frame outlined below. OT Frequency: OT Amount: 1 visit per day OT Frequency: 5 times per week OT Inpatient Duration : Until goals are met or hospital discharge Requires Inpatient OT Follow-Up: Yes OT - Next Inpatient Appointment: 10/15/24 Plan: Continue with current plan Treatment interventions may include: Treatment Interventions: Therapeutic exercise, Therapeutic functional activity, Self-care/home management, Cognitive skills training Occupational Therapy Attestation Statement: Patient agrees with the plan of care and goals. Billing: Tiered OT Evaluation Codes: Comorbid Conditions: Cancer, Cognitive/memory disorder, Cerebrovascular accident, Cardiopulmonary disease Personal Factors: Age, Cognition Occupational Profile and History review: Expanded Performance Deficits: 3 - 5 performance deficits Evaluation Complexity: Moderate Time Spent with Patient Evaluations OT Eval - Mod Complexity: 22 min Therapeutic Interventions Home Management Training (min): 27 min Time Tracking Total Timed Units (min): 27 min Total Treatment Time (min): 49 min MARYLIN Singh [1] Past Medical History: Diagnosis Date Apnea Sleep Obstructive Blood Transfusion No Diagnosis Malignant Primary Neoplasm (Unknown Site) Unspecified (HCC) Transient Ischemic Attack pt thinks he did at one point [2] Past Surgical History: Procedure Laterality Date BLADDER SURGERY 1979 CATH ANGIOGRAM N/A 10/10/2024 Procedure: CORONARY ANGIOGRAPHY; Surgeon: Grey Gomez M.D.; Location: [facility] CCL COLONOSCOPY pt thinks hes had 2 TONSILLECTOMY WISDOM TOOTH EXTRACTION Cosigned by Aye Del Rosario O.T., O.T.D. at 10/12/2024 4:22 PM CDT Associated attestation - Aye Del Rosario O.T., O.T.D. - 10/12/2024 4:22 PM CDT This therapist has reviewed all documentation and supervised today's session. This therapist agreeswith the plan of care developed in collaboration with the patient. * Rico Shelton P.T., D.P.T. - 10/12/2024 9:28 AM CDT Physical Therapy Inpatient Evaluation/Treatment SUBJECTIVE Patient's Name: Hernandez Samayoa Referring/Attending Provider: Iva Ascencio M.D. Reason for Referral: Physical Therapy Evaluate and Treat Onset Date: 10/09/2024 Pertinent Medical / Surgical History: Medical History[1] Surgical History[2] History of Present Illness: Hernandez Samayoa is a 78 y.o. male who was admitted to [facility] in [place] on 10/09/2024 for Other chest pain [R07.89] Angina Unstable (HCC) [I20.0] Pain Chest [R07.9]. Relevant Medical History: Hernandez Samayoa is a 78 year old male with PMHx of right MCA stroke, right frontal stroke with flaccid hemiplegia, right carotid endarterectomy, hyperlipidemia, DVT, CAD, dilated ascending aorta, and malignant neoplasm of bladder who is admitted for anginal workup prior to bladder surgery. RST PT/OT Falls screen: Fall in the last 12 months: No Are you fearful of falling: No Pain Assessment: Pain not reported during session. Patient/Caregiver Goals: No goals stated Subjective Comments: Agreeable to therapy session. Home Living and Equipment: Lives With: Significant other Receives Help From: Family, Home health (Patient's significant other receives home health services for Alzheimer's and household tasks) Type of Home: House Home Layout: Two level Home Layout Comments: There is a bedroom and bathroom on both levels Home Access: Level entry Home Layout Comments: There is a bedroom and bathroom on both levels Bathroom Shower/Tub: Walk-in shower Bathroom Toilet: Standard Bathroom Accessibility: Yes How Accessible: Accessible via walker Home Adaptive Equipment: None Gait Devices Owned: Cane Bathroom Equipment: Grab bars in shower, Hand-held shower head Prior Level of Function and Mobility: ADL Assistance: Independent IADL/Homemaking Assistance: Modified independent IADL/Homemaking Assistance Comments: Receives cleaning services 1-2x a week and assistance for shopping Driving: Independent Level of [place]: Independent Gait Devices/Wheelchair Used: Cane Gait Devices/Wheelchair Used Comments: Occasionally uses a cane Dominant Hand: Right Occupational Role: Retired 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 109/71mmHg(83) in standing before walking.Patient reported some initial lightheadedness during ambulation but this quickly dissipated. Blood pressure 123/71mmHg(80) after walking. Evaluation Assessments: Strength: slightly below baseline but functional Balance: Static Sitting: Good (Maintains balance without support) Dynamic Sitting: Good (Maintains balance without support) Static Standing: Good (Maintains balance without support) Dynamic Standing: Fair (Maintains balance with handheld assist) Activity Tolerance: Endurance: Tolerates 10-20 minutes of activity Outcome Measures: AM-[facility] Inpatient Short Form: AM-[facility] Basic Mobility (V.2) How much help from another person do you currently need???If the patient hasn't done an activity recently, how much help from another person do you think he/she would needif he/she tried? 1. Turning from your back to your side while in a flat bed without using bedrails?: None 2. Moving from lying on your back to sitting on the side of a flat bed without using bedrails?: None 3. Moving to and from a bed to a chair (including a wheelchair)?: None 4. Standing up from a chair using your arms (e.g., wheelchair, or bedside chair)?: None 5. To walk in hospital room?: A Little 6. Climbing 3-5 steps with a railing?: A Little AM-[facility]AC Basic Mobility (V.2) Raw Score: 22 AM-[facility] Basic Mobility (V.2) Standardized Score: 47.4 Interpretation: Based on scoring guidelines using the raw score value: Those going to home had an average score at or above 18 Those going to facility had an average score at or below 17 Clinicians answer the AM-PAC Inpatient Short Form based on observed patient activity and/or clinical judgement (patient can be scored without physically performing each activity). The AM-PAC is one of many factors to consider when discharge planning. Therapeutic Interventions: SIT TO STAND: - Assist Level: independent - Device: gait belt and no assistive device - Surface: chair STAND TO SIT: - Assist Level: independent - Device: gait belt and no assistive device - Surface: chair GAIT: - Distance: 55 meters - Assist Level:modified independent, supervision of 1 - Device: gait belt, single point cane, and no assistive device - Quality: decreased gait speed, decreased heel strike, decreased step height, decreased step length, guarded - Therapist Delivery: assessed, facilitated, and instructed - Assist/Cues Provided:verbal and tactile for forward gaze, placement of gait aid, terminal hip extension, and upright posture - Comments: Initiated gait without an assistive device. Patient demonstrated inconsistent foot placement and lateral sway. Educated and provided single point cane, with patient then ambulating with modified independence. Subjectively felt more stable as well. THERAPEUTIC EXERCISE: Seated Therapeutic Exercise: - Side: bilateral - Mode: active range of motion - Exercises: long arc quads - Repetitions: x10 reps - Assist/Cues Provided: full range of motion The patient's status was discussed and the following coordination of care occurred with the RN and OT Patient was left in bedside chair at end of session with call light in reach, all needs met and questions answered. Assessment Discharge Therapy Needs - PT: No further skilled therapy If skilled therapy is recommended, skilled therapy can include physical therapy provided by home health, outpatient clinic, or a post-acute facility. The location of these services is determined by the patient's care team in partnership with patient/family. Barriers to Discharge Home: Limited caregiver support, Safety concerns Barriers to Discharge Comments: Patient is the primary caregiver for his who is diagnosed withAlzheimer's. Patient presents safety concerns with medication management Equipment Recommended - PT: Single-point cane (patient owns) From a physical therapy perspective, the level of care above has been recommended for Mr. Samayoa after hospital discharge. This level of care is based on his functional abilities during today's session. This may change throughout the hospital course and will be updated as appropriate. Clinical Impression: Currently, patient presents with decreased strength, impaired dynamic balance, decreased activity tolerance, and cardiopulmonary impairments resulting in the following impaired gait. Patient mobilizing fairly well. With gait, he was a bit unsteady without an AD but was much more stable when using acane (he does own). Patient is the primary caregiver for his but states he does have home health services for her 3x/week as well. I do not have any current concerns about discharge home. PT will continue to follow. Physical therapy treatment is medically necessary to restore and maximize function, maximize safetyand facilitate discharge to home, teach and educate the patient and/or caregivers. Recommendations for mobility/activity while hospitalized: chair 3x/day with assist x1 and gait belt and single point cane (2 hours max in chair at a time) gait 4-5x/day with assist x1 and gait belt and single point cane Plan PT Plan Comments: Progress from cane to no AD which is patient's baseline. Assess stair negotiationand progress exercises. Functional Goals: PT Inpatient Goals PT Goal #1: Patient will perform supine to/from sit transfers with independence for safely rising from bed at home. PT Goal #1 Status: Ongoing PT Goal #2: Patient will perform sit to/from stand transfers with modified independence and least restrictive assistive device for safely rising from a chair at home. PT Goal #2 Status: Progressing PT Goal #3: Patient will ambulate 75m with modified independence and least restrictive assistive device for return to home and community walking. PT Goal #3 Status: Progressing PT Goal #4: Patient will negotiate 6 steps with one railing and supervision for safely reaching hisdownstairs bedroom/bathroom. PT Goal #4 Status: Ongoing Hernandez Samayoa has Good rehab potential to meet the expected outcomes in a reasonable period of time. Treatment Plan: Plan: Plan of care initiated PT Amount: 1 visit per day PT Frequency: 3 times per week PT Inpatient Duration : Until goals are met or hospital discharge Requires Inpatient Follow-Up: Yes PT - Next Inpatient Appointment: 10/15/24 Patient agrees with the plan of care and goals. Treatment interventions may include: Treatment/Interventions: Therapeutic exercise, Therapeutic functional activity, Neuromuscular re-education, Gait training, Self-care/home management Billing: Tiered PT Evaluation Codes: Comorbid Conditions: Cancer, Cognitive/memory disorder, Cerebrovascular accident, Cardiopulmonary disease Personal Factors: Age, Cognition Examination elements: 1-2 Clinical Presentation: Evolving Clinical Decision Making: Low complexity clinical decision making Time Spent with Patient Evaluations PT Eval - Low Complexity: 10 min Therapeutic Interventions Therapeutic Activity (min): 19 min Time Tracking Total Timed Units (min): 19 min Total Treatment Time (min): 29 min Rico Shelton P.T., D.P.T. [1] Past Medical History: Diagnosis Date Apnea Sleep Obstructive Blood Transfusion No Diagnosis Malignant Primary Neoplasm (Unknown Site) Unspecified (HCC) Transient Ischemic Attack pt thinks he did at one point [2] Past Surgical History: Procedure Laterality Date BLADDER SURGERY 1979 CATH ANGIOGRAM N/A 10/10/2024 Procedure: CORONARY ANGIOGRAPHY; Surgeon: Grey Gomez M.D.; Location: [facility] COLONOSCOPY pt thinks hes had 2 TONSILLECTOMY WISDOM TOOTH EXTRACTION * Carissa Perez [id number] - 10/11/2024 1:59 PM CDTAssociated Order(s): IP CONSULT TO CARE MANAGEMENT; IP CONSULT TO CARE MANAGEMENT Discharge Planning Assessment SUBJECTIVE Assessment Information Referral Data Referral Source: Early Screen for Discharge Planning Referral Name: ESDP score 14 Previous Assessment: No Custom Furrier Services Used: No Primary Language: Telugu Custom Furrier Services Used: No Person(s) Present During Interview: patient and significant other, Beret. History of Present Illness #1 Angina Unstable (HCC) Social History Citizenship: [place] Citizen Marital Status: Single. Has a partner Family / Household: Self and partner Social Drivers of Health with Concerns No concerns present OBJECTIVE Finance/Insurance Primary insurance: MEDICARE A AND B Secondary insurance: AARP benefits: No Advance Directives Baseline Functional Status Baseline Activities of Daily Living Mobility: Independent Dressing: Independent Feeding: Independent Bathing: Independent Grooming: Independent Toileting: Independent Behavior: Appropriate, Cooperative, Oriented, Calm, Pleasant Communication: Appropriate to age/development Shopping: Independent Medication Management: Independent Housekeeping: Independent Meal Prep: Independent Assistive Devices: Eyeglasses, Dentures, Medication box Transportation: Independent to drive Managing Finances: Independent Baseline Services/Resources Primary care clinic and provider: Patient Care Team Relationship Specialty Notifications Start End Osorio Galvan M.D. External Primary Care Physician Family Medicine 10/09/24 Address: [address] [place] [id number] Additional Resources: Additional Services: NA Anticipated Needs Functional Status: None Assistive Devices: None Anticipated Modifications to the Patient's Home: None Transportation Needs: Support from family Does the patient need discharge transport arranged?: No Phone Number for Ride/Caregiver: Jose [phone] Anticipated Discharge Destination: Home or Self Care Referrals Initiated: None mold polisher provided Care Management Brochure ([id number]), information regarding the dismissal process, and the Senior Linkage Line ([place] Board on Aging) handout. ASSESSMENT / PLAN ASSESSMENT: The mold polisher met with Hernandez Samayoa to discuss his current hospitalization and home goingneeds. The patient was accompanied by girlfriend, Roderick. The patient was a reliable historian. The role of mold polisher was reviewed. The patient reviewed his prior level of care and support system. The patient receives support from his extended family. Hernandez resides with spouse/significant other in a single level home with level entry. Housekeeping,grocery shopping, meal prep, and other household responsibilities have previously been completed bypatient. Patient was in bed, alert and oriented. Patient's partner Roderick and Berets son, Jose were present inthe room. Patient is independent, still driving. Patient's partner has memory impairment. Patient'spartner receives private pay home health care. Patient is requesting information regarding private pay [facility]. Patient would like PT/OT assessment. Service team notified of this request. - At this time, the care team has not identified any skilled post-hospital discharge care needs that require the assistance of the Care Management Team. The patient's potential needs at dismissal based on their home setting, previous needs and responsibilities, homebound status, and relevant assessments were discussed. The patient will be safe and supported to discharge home with family when medically ready. Support will be provided by self. mold polisher recommendations include: discussing needed assistance with family, friends, or neighbors . Pending hospital course and medical readiness, no barriers to dismissal have been identified at this time. The following hospital-based consult orders and/or referrals placed or requested: PT/OT. PLAN: The patient and patient's significant other agrees with the following plan. Patient's Anticipated Discharge Destination: Home or Self Care (pending clinical hospital course) Transportation upon dismissal will be Jose. mold polisher encouraged the patient to reach out with any questions/concerns. Care Management will continue to assess for homegoing needs with the interdisciplinary team. Signed by: Carissa Perez R.N. 10/11/2024 * Laurie Ruiz - 10/10/2024 9:01 AM CDTAssociated Order(s): IP CONSULT TO DIETITIAN Clinical Nutrition: Initial Assessment Clinical Nutrition was requested to evaluate patient for positive nursing baseline nutrition screenwith a MST score of 2 or greater Completed visit or chart review today without direct contact with the patient due to patient away at procedures. SUBJECTIVE Mr. Samayoa is a 78 y.o. male admitted for Angina Unstable (HCC) s/p ECG and plans for further workup.PMH is significant for CAD, DVT/PE, hyperlipidemia, TIA, flaccid hemiplegia, mild cognitive impairment, malignant neoplasm of bladder, hypotension, and smoking. Pertinent History: Medical History[1] Surgical History[2] Current Nutrition: Patient is currently NPO in anticipation for additional procedures and scans. Noted patient has not had a bowel movement since 10/05. Recommend continuing to titrate bowel regimen to promote adequate stooling. RDN will reassess for appropriate nutrition interventions at a later date. Nutrition Prior to Admission: Unable to assess at this time. Food Allergies/Intolerances: Allergies[3] OBJECTIVE Current nutrition orders: Dietary Orders (From admission, onward) Start Ordered 10/10/24 0000 No oral or enteral nutrition (NPO Orders) Diet effective midnight 10/09/24 2040 Pertinent Labs: Last 3 results Lab Units 10/09/24 2330 10/09/24 1725 SODIUM P mmol/L -- 134* SODIUM mmol/L 137 -- POTASSIUM mmol/L 4.5 -- POTASSIUM P mmol/L -- 4.8 CHLORIDE P mmol/L -- 99 CHLORIDE mmol/L 103 -- BUN P mg/dL -- 26* BUN mg/dL 25* -- CREATININE mg/dL 1.55* 1.53* PHOSPHORUS INORGANIC mg/dL 3.5 -- CALCIUM P mg/dL -- 9.0 CALCIUM mg/dL 8.4* -- GI Function:Last BM Date: 10/05/24 (per patient), , Edema:Edema: Right lower extremity, Left lower extremity, , ,Right Lower Extremity Edema: +1 Pit 2mm, slight indentation, barely perceptible,Left Lower Extremity Edema: +2 Pit 4mm deep, indentation subsides rapidly, , Integumentary/Wounds: Lines/Drains/Airways None Medications: Current Medications[4] Anthropometrics: Height: 172.7 cm Admission Weight: 80.8 kg (10/09/2024) Current Weight: 77.7 kg BMI (Calculated): 26.1 kg/m?? Weight change since admission: -3.1 kg Net IO Since Admission: -1,530 mL [10/10/24 1358] Weight history: Weight appears to be stable per chart review. Wt Readings from Last 12 Encounters: 10/10/24 77.7 kg 10/09/24 80.5 kg 10/01/24 82.3 kg 07/15/20 82.9 kg 05/15/20 82.9 kg 04/28/20 83.3 kg 04/15/20 80.2 kg ASSESSMENT / PLAN Nutrition Diagnosis: Inadequate oral intake related to current illness as evidenced by current NPO status. Initiated Malnutrition Assessment: Unable to assess at this time Estimated Needs: Total Calorie Needs: 7478-2654 calories/day Method to Estimate Energy Needs: kcal/kg (25-30 kcal/kg) Weight Used for Equation Calculations: 77.7 kg Total Protein Needs: 78-93 grams/day (Method to Estimate Protein Needs (g/kg): 1 - 1.2 gm/kg) Weight Used to Calculate Protein Needs (Kg): 77.7 kg Nutrition Intervention: Interventions: Collaboration and referral of nutrition care Monitoring/Evaluation: Nutrition parameter to monitor: Diet Progression/NPO Status, Weight Status, Pertinent Labs, and Comparative Standards Desired Outcome: Adequate stooling Advance diet per service when medically able Labs within acceptable limits Recommendations: Advance diet per primary team Continue to titrate bowel regimen to promote adequate stooling Patient may benefit from a formal swallow evaluation prior to resuming PO intake Clinical Nutrition will continue to follow. For questions about patient's nutritional care please contact pager [phone] on weekdays 07:30-16:00 or [phone] on weekends/holidays ([facility]) [phone]. [1] Past Medical History: Diagnosis Date Apnea Sleep Obstructive Blood Transfusion No Diagnosis Malignant Primary Neoplasm (Unknown Site) Unspecified (HCC) Transient Ischemic Attack pt thinks he did at one point [2] Past Surgical History: Procedure Laterality Date BLADDER SURGERY 1979 COLONOSCOPY pt thinks hes had 2 TONSILLECTOMY WISDOM TOOTH EXTRACTION [3] Allergies Allergen Reactions Atorvastatin Myalgia Citalopram Tinnitus [4] Current Facility-Administered Medications: [Transfer Hold] acetaminophen tablet 1,000 mg (TylenoL), 1,000 mg, oral, 4x Daily, Clarissa Calle Sr., M.D., 1,000 mg at 10/10/24 1208 [Transfer Hold] finasteride tablet 5 mg (Proscar), 5 mg, oral, Daily, Mario Musa M.D., 5 mg at 10/10/24 0932 [Transfer Hold] metoprolol succinate 24 hr tablet 25 mg (Toprol XL), 25 mg, oral, Daily, Juno Musa M.D., 25 mg at 10/10/24 0931 [Transfer Hold] nitroglycerin SL tablet 0.4 mg (Nitrostat), 0.4 mg, sublingual, Q5 Min PRN, Mario Musa M.D. [Transfer Hold] polyethylene glycol powder packet 17 g (Miralax), 17 g, oral, Daily PRN, Clarissa Calle Sr., M.D. [Transfer Hold] rosuvastatin tablet 20 mg (Crestor), 20 mg, oral, Daily at bedtime, Mario Musa M.D. [Transfer Hold] sennosides-docusate sodium 8.6-50 mg per tablet 1 tablet (Senokot-S), 1 tablet, oral, BID, Clarissa Calle Sr., M.D., 1 tablet at 10/10/24 0933 Cosigned by Valorie Maldonado RDN, LD at 10/11/2024 7:45 AM CDT documented in this encounter Nursing Notes * Liat Sam R.N. - 10/12/2024 3:58 PM CDT Shift Goals: Clinical Goals for the Shift: Patient will remain from falls throughout this shift. Identify possible barriers to meeting goals/advancing plan of care: Admitting diagnosis. End of Shift Summary: Goal met, patient is VSS for discharge. Patient and family were pleasant throughout this shift. RN reviewed After visit summary, discharge summary, Medication detail, all follow-up questions answered. PIV removed and tele monitory discontinued. [place] [facility] will be transported home by family. Patient transferred to front entrance by wheelchair with transportstaff and family. Problem: Risk for Compromised Skin Integrity-Other Residential Carpenter(s) Goal: Risk for Compromised Skin Integrity-Other Residential Carpenter(s) 10/12/20241557 by Liat Sam, R.N. Outcome: Adequate for Discharge Problem: PAIN - ADULT Goal: PT VERBALIZES/DEMONSTRATES ADEQUATE COMFORT LEVEL OR BASELINE 10/12/20241557 by Liat Sam, R.N. Outcome: Adequate for Discharge Problem: KNOWLEDGE DEFICIT Goal: Patient/family/caregiver demonstrates understanding of disease process, treatment plan, medications, and discharge instructions 10/12/20241557 by Liat Sam, R.N. Outcome: Adequate for Discharge Problem: INFECTION - ADULT Goal: Absence of infection during hospitalization 10/12/20241557 by Liat Sam R.NMak Outcome: Adequate for Discharge Problem: SKIN/TISSUE INTEGRITY Goal: Skin/Tissue integrity maintained or improved 10/12/20241557 by Liat Sam, R.NMak Outcome: Adequate for Discharge Goal: Oral and Nasal mucous membranes remain intact 10/12/20241557 by Liat Sam, R.NMak Outcome: Adequate for Discharge Problem: SAFETY ADULT Goal: Maintain a safe environment 10/12/20241557 by Liat Sam, R.NMak Outcome: Adequate for Discharge Problem: DISCHARGE PLANNING Goal: Patient discharge needs identified 10/12/20241557 by Liat Sam, R.NMak Outcome: Adequate for Discharge Problem: Risk for Compromised Skin Integrity-Gordon Sensory Perception Score 1, 2, or 3 Goal: Manage sensory perception deficits to maintain and/or improve skin integrity. 10/12/20241557 by Liat Sam, R.NMak Outcome: Adequate for Discharge Problem: Risk for Compromised Skin Integrity-Gordon Activity Score 3 Goal: Achieve optimal activity to maintain or improve skin integrity. 10/12/20241557 by Liat Sam, R.NMak Outcome: Adequate for Discharge Problem: SAFETY ADULT - RISK FOR FALL AND OR FALL INJURY Goal: Patient remains free from fall/fall injury 10/12/20241557 by Liat Sam, R.NMak Outcome: Adequate for Discharge Problem: CARDIOVASCULAR - ADULT Goal: Maintains optimal cardiac output and hemodynamic stability 10/12/20241557 by Liat Sam, R.N. Outcome: Adequate for Discharge Problem: METABOLIC/FLUID AND ELECTROLYTES - ADULT Goal: Hemodynamic stability and optimal renal function maintained 10/12/20241557 by Liat Sam, R.N. Outcome: Adequate for Discharge * Janie Osei R.N. - 10/11/2024 5:19 PM CDT Shift Goals: Clinical Goals for the Shift: Patient will have no chest pain, will tolerate biopsy Identify possible barriers to meeting goals/advancing plan of care: CAD End of Shift Summary: Mr. Samayoa has had no chest pain. His BP was soft to SBP 90s after biopsy. He endorsed mild, transient lightheadedness initially uponstanding to get back to bed but was able to then walk to the bed without further issue, and his blood pressure improved as the sedation wore off. He was later able to walk in the halls with staff and tolerated the activity fairly well. Vital signs have otherwise been stable. The biopsy site remainsWDL. Problem: SAFETY ADULT - RISK FOR FALL AND OR FALL INJURY Goal: Patient remains free from fall/fall injury Outcome: Progressing Problem: CARDIOVASCULAR - ADULT Goal: Maintains optimal cardiac output and hemodynamic stability Outcome: Progressing * Elizabeth Kennedy APRN, C.N.P., M.S.N. - 10/11/2024 2:51 PM CDT MEDICAL ONCOLOGY CONSULT SERVICE: VENECIA NOTE Primary Service: RST CARD 2 Local Oncologist: No care steamfitter to display [place] [facility] Oncologist(s): No care steamfitter to display Reason(s) for consult: New/suspected cancer diagnosis Mr. Hernandez Samayoa is a 78 year old male admitted for gross hematuria and urinary retention with imaging concerning for advanced bladder cancer (large bladder mass with clear extravesical extension and concern for óscar involvement. Urology was consulted and Dr. Rojas recommended metastatic diease confirmation with imaging guidedbiopsy of an accessible lymph node. This has been arranged for today. Patient has follow-up within the week with Dr. Rojas and consultation with medical oncology same day. Per primary service, patient will likely discharge tomorrow. We would expect the patient's pathology to return from the lymph node prior to his outpatient visits and he would be best served establishing care and discussing next steps with oncology in the outpatient setting. The question was posed if we need a PET scan prior to upcoming appointments. Afterdiscussion with one of our oncology colleagues, if we are able to access a lymph node for biopsyand we have a CT urogram and CT chest, there is no need for PET scan at this time. Please contact the Oncology Consult service if any further questions or concerns arise at [phone](service pager), M-F 7:00 a.m. to 7:00 p.m, [employer] Integrity Engineer on Consult service. Elizabeth Kennedy APRN, C.N.P., M.S.N. * Sakshi Ochoa R.N. - 10/11/2024 4:36 AM CDT Problem: Risk for Compromised Skin Integrity-Other Residential Carpenter(s) Goal: Risk for Compromised Skin Integrity-Other Residential Carpenter(s) Note: RN assess for pain and adjacent to medical devices. Medical devices were repositioned throughout the night to prevent pressure injuries. Problem: SAFETY ADULT Goal: Maintain a safe environment Outcome: Progressing Note: Bed alarm utilized overnight. RN remained WAR during ambulation to and from bathroom. Shift Goals: Clinical Goals for the Shift: Patient will remain hemodynamically stable throughout this shift. Identify possible barriers to meeting goals/advancing plan of care: None End of Shift Summary: Patient did become disoriented to place overnight. Patient was reoriented. Patient remained vitally stable Plan for CT guided lymph node biopsy. BP 132/74 (BP Location: Right arm;Upper, Patient Position: Lying) Pulse (!) 53 Temp 37.5 ??C (Oral) Resp 21 Ht 172.7 cm Wt 77.9 kg SpO2 96% BMI 26.12 kg/m?? * Janie Pal R.N., [facility]- - 10/10/2024 8:30 AM CDT Proactive Integration of Mental Health Care in Cardiovascular Disease Screening Note Hernandez Samayoa's chart was screened by a member of the Psychiatry Proactive Consultation based ontheir history and/or current presentation. Hernandez Samayoa is noted to have the following risk factors: Psychiatric Diagnoses (past 5 years): Change in mental status Mild cognitive impairment Behaviors: None Psychiatric History (past 10 years): None Psychotropic Medication Use (past 5 years): None Psychosocial Barriers: None Psychiatry Active Problems: None CURRENT MEDICATIONS I have reviewed the patient's current scheduled and PRN medications. Scheduled Meds: [Transfer Hold] acetaminophen, 1,000 mg, oral, 4x Daily [Transfer Hold] finasteride, 5 mg, oral, Daily [Transfer Hold] metoprolol succinate, 25 mg, oral, Daily [Transfer Hold] rosuvastatin, 20 mg, oral, Daily at bedtime [Transfer Hold] sennosides-docusate sodium, 1 tablet, oral, BID sodium chloride, 3 mL, intravenous, Q12H ADARSH Continuous Infusions: PRN Meds: fentaNYL (PF) fentaNYL (PF) flumazenil midazolam midazolam midazolam midazolam NaCl 0.9% naloxone [Transfer Hold] nitroglycerin [Transfer Hold] polyethylene glycol sodium chloride sodium chloride Based on screening, we have the following recommendations: [] painter interior finish visit [x] Discuss with primary team to better understand needs. [x] Nursing to nursing support - preventive measures and management (e.g., delirium, suicide): Sleep enhancement protocol [] Full Psychiatry Consultation - primary team to place order [] Recommend social work consultation - primary team to place order [] Recommend pet/music therapy consultation - primary nursing to place order [] Recommend OT consultation for coping skill education/support-primary team to place order [] Recommend Wrapper [employer] Services consultation- primary nursing to place order [] Recommend social work/substance use consultation -primary team to place order [] Recommend outpatient psychiatric follow-up - primary team to place psychiatric consult order to coordinate [] No acute psychiatric intervention needed; please reach out if questions or concerns. [] Other [place] [phone] with questions. Janie Pal R.N., [facility] 10/10/2024 * Desiree Mckeon R.N. - 10/10/2024 4:40 AM CDT Problem: PAIN - ADULT Goal: PT VERBALIZES/DEMONSTRATES ADEQUATE COMFORT LEVEL OR BASELINE Outcome: Not Progressing Note: Patient reports 10/10 pain in penis after molina catheter exchange. Patient was given Tylenol which reduced his pain to 9/10. Lidocaine jelly was administered to site. Shift Goals: Shift Goal: Patient will remain hemodynamically stable during this shift. Identify possible barriers to meeting goals/advancing plan of care: Pain End of Shift Summary: Goal partially met. BP elevated to 188/84 when patient is reporting 10/10 pain in penis. Pain reduced to 9/10 pain with Tylenol. Lidocaine jelly requested to apply to site. Patient states when admitted that his chronic urinary catheter leaks at the insertion site. Service was notified and molina catheter was exchanged. Patient reports no chest pain during this shift. Patient is NPO for possible Angio today. Electronically signed by: Desiree Mckeon R.N. 10/10/24 4:46 AM CDT documented in this encounter ED Notes * Zuri aHrvey, PTee.-C., M.S. - 10/09/2024 5:17 PM CDT SUBJECTIVE CHIEF COMPLAINT/REASON FOR VISIT Chest Pain HISTORY OF PRESENT ILLNESS Hernandez Samayoa is an 78-year-old male with a history of CAD, TIA, flaccid hemiplegia, mild cognitive impairment, malignant neoplasm of bladder, and hypotension who presents to the Emergency Department for the evaluation of chest pain. Earlier today the patient was at a pre-operative consultation for a planned TURBT with bilateral stent placement on 10/11/24. During this appointment the patient endorsed that he has been experiencing intermittent dull chest pain with exertion. His pain does not radiate. Given concern regarding unstable angina, the patient was recommended to present to the [facility] ED to expedite hospital admission for urgent PCI. He denies any current chest pain here in the ED. He is currently anticoagulated on Eliquis. He denies any fever, cough, hemoptysis, increased edema, or shortness of breath. There are no other complaints at this time. History provided by: Patient and medical records soil analyst needed/used: no REVIEW OF SYSTEMS Reason unable to perform ROS: See HPI. OBJECTIVE Initial Vitals Temperature 10/09/24 1704 36.7 ??C Pulse Rate 10/09/24 1704 65 Heart Rate -- Resp Rate 10/09/24 1704 16 Blood Pressure 10/09/24 1704 134/79 SpO2 10/09/24 1704 97 % Pain Score 10/09/24 1703 0 - No pain PHYSICAL EXAMINATION Constitutional: Nursing note and vitals reviewed. He is active and cooperative. Non-toxic appearance. No distress. HENT: Head: Normocephalic and atraumatic. Eyes: Conjunctivae and EOM are normal. Neck: Neck supple. No JVD present. Cardiovascular: Normal rate, regular rhythm, normal heart sounds, intact distal pulses, normal pulses and normal peripheral perfusion. Exam reveals no gallop and no friction rub. Pulses are palpable. No murmur heard.Capillary refill: takes less than 3 secondsEdema:Right lower extremity: 2+. Left lower extremity: 2+. Pulmonary/Chest: Effort normal and breath sounds normal. There is normal air entry. No tachypnea. No respiratory distress. He has no wheezes. He has no rhonchi. He has no rales. Musculoskeletal: General: No deformity. Normal range of motion. Cervical back: Normal range of motion and neck supple. Normal range of motion. Neurological: Alert and oriented to person, place, and time. He is not disoriented. GCS eye subscore is 4. GCS verbal subscore is 5. GCS motor subscore is 6. Normal speech. Speech is not slurred. Patient is responsive and following commands appropriately. Skin: Skin is warm and dry. No rash noted. He is not diaphoretic. No mottling or pallor. Psychiatric: He has a normal mood and affect. Behavior is normal. ASSESSMENT/PLAN Hernandez Samayoa presents with chest pain. Workup included an EKG, Chest X-ray, and blood laboratory studies including troponin, PT, and APTT.I personally reviewed the EKG which was negative for signs of acute STEMI/equivalent and appeared similar to previous EKG from earlier today. Out of an abundance of caution, we have given aspirin 324mg. Labs significant for negative delta troponin, unlikely acute myocardial injury. Patient does also have an KEVIN but is tolerating PO intake and feels as though he has been emptying his bladder, he does have a Molina catheter in place. Anemia is stable. I personally reviewed the CXR which was negative for signs of fluid overload. Will plan to proceed with admission to cardiology PCU due to concerns of unstable angina. He is currently chest pain free fortunately. Patient was kindly accepted for admission to cardiology, patient and are agreeable with this plan. Assessment and Plan I reviewed the following external records: office records. Final Diagnoses: as of 10/09/24 1730 Angina Unstable (HCC) Pain Chest My ECG interpretation is documented in ED Course. My [employer] interpretation is documented in ED Course. I personally performed the services described in this documentation, as scribed in my presence, andit is both accurate and complete. Zuri Harvey P.A.-C., M.S. 10/09/242024 * Yumi Skinner R.N. - 10/09/2024 5:03 PM CDT Pt presents to the ED from clinic appointment for urgent angiography. Pt denies current pain, SOB. Yumi Skinner R.N. 10/09/24 1704 documented in this encounter Miscellaneous Notes * Documentation Clarification - Clari Daniel M.D. - 10/12/2024 4:06 PM CDT PROVIDER RESPONSE TEXT: To clarify, the appropriate diagnosis supported by the clinical indicators: I agree with the final pathology of Lymph node L pelvis resulted 10/15/24, positive for malignancy; metastatic urothelial carcinoma QUERY TEXT: Clarification DOCUMENTATION CLARIFICATION REQUEST Please clarify/specify the appropriate diagnosis supported in the clinical indicators below. Clinical Indicators/Risk Factors/Treatment: 10/11/24 PN (Fredy) - 78 year old male with PMHx of right MCA stroke, right frontal stroke with flaccid hemiplegia, right carotid endarterectomy, hyperlipidemia, DVT, CAD, dilated ascending aorta, andmalignant neoplasm of bladder who is admitted for anginal workup prior to bladder surgery. 10/11/24 CT Lymph Node Biopsy (Za) - Post proc dx - L external iliac lymphadenopathy, query metastatic 10/12/24 DC Summary (Fredy) - Pending Labs: cytology fine needle aspiration including core biopsies Final Pathology fine needle aspiration Lymph node (10/11/24 Collected; 10/15/24 Resulted-Dr. Johan Grossman) Interpretation - A. Lymph node, left pelvis, fine needle aspiration (smears/core biopsy): Positive for malignancy. Metastatic urothelial carcinoma with micropapillary features. Options provided: -- I agree with the final pathology of Lymph node L pelvis resulted 10/15/24, positive for malignancy; metastatic urothelial carcinoma -- Other - I will add my own diagnosis -- Disagree - Clinically unable to determine / Unknown -- Refer to Clinical Documentation Reviewer Query created by: Hui Rivas on 10/17/2024 9:44 AM Electronically signed by: Clari Daniel M.D. 10/17/2024 10:20 AM * Hospital Course - Clari Daniel M.D. - 10/10/2024 1:54 AM CDT Mr. Samayoa is a 78 y.o. year old male who initially presented in the outpatient setting for a preanesthetic medical evaluation for a surgical evaluation for a bladder mass but was describing worsening chest discomfort concerning for ACS, and was admitted to the [facility] CARD 2 service for further management and cares. Prior to admission: The patient was being evaluated on the same day by outpatient Cardiology for a preoperative/pre anesthetic medical evaluation for a planned transurethral resection of his bladder tumor on 10/11/2024.During that visit, the patient described to the providers that he has been having increasingly morefrequent chest discomfort. He reportedly has a known history of chronic stable angina. Given the concerns for possible acute coronary syndrome, the patient was recommended to go to the emergency department for further evaluation. Upon arrival to the emergency department, the patient was hemodynamically stable and afebrile with normotensive blood pressures. Presenting EKG showed NSR without significant changes concerning for ischemia. Serial EKG performed 3 hours later did not reveal new changes. Otherwise, other initial investigations were significant for stable macrocytic anemia to 9.9, acute kidney injury with a creatinine elevation to 1.53, elevated baseline troponin of 33 drawn at 5:25 p.m.. In the emergency department, the patient was loaded with aspirin 324 mg. Given the concerns for acute coronary syndrome, thepatient was admitted to the cardiology service for further management. CARD 2 Service (10/09/2024 - 10/12/2024): Upon arrival to the floor, the patient was afebrile and hemodynamically stable. Importantly, he waschest pain-free without any significant intervention being needed. The patient's situation was overall challenging as his history was variable without definitive evidence of chest pain ever had occurring. This was further complicate by the patient's previous history of significant bleeding likely 2/2 an undiagnosed bladder mass in the past due to initiation of Plavix and aspirin. However, given the patient's known coronary disease and the need for a invasive surgical procedure in the future given his known bladder mass, it was decided to pursue a diagnostic angiogram on 10/10/2024 to clarify the patient's coronary anatomy and to investigate evidence of an acute coronary lesion. The angiogram ultimately redemonstrated severe multivessel coronary disease (70% obstruction of mLAD, 70% obstruction of the proximal-LCx, 80% obstruction of the ramus, subtotal/total occlusion of the distal RCA,right PDA and right posterolateral segment with evidence of collateralization). While CABG was initially considered, it was felt that patient would most benefit from oncologic follow up prior to considering intervention for CAD. His creatinine was elevated on discharge day (1.79) but stable. We will repeat a BMP on Tuesday. documented in this encounter Plan of Treatment Upcoming Encounters Date Type Department Care Team (Late st Contact Info) Description 11/02/2024 1:00 PM CDT Clinical Support Department of Oncology in [place], [place] [address] [place] [phone] Polo Dwyer M.D. [address] [place] [phone] China Parikh M.S.W., L.Timo.S.W. [address] [place] [phone] 11/12/2024 2:15 PM CDT Office Visit Department of Cardiovascular Medicine in [place], [place] [address] [place] [phone] Elisa Alva M.D. [address] [place] [phone] documented as of this encounter Procedures Procedure Name Priority Date/Time Associated Diagnosis Comments RENAL FUNCTION PANEL, S Routine 10/12/2024 1:08 PM CDT CBC WITHOUT DIFFERENTIAL, B Routine 10/12/2024 1:[address] LYMPH NODE BIOPSY RAD - Routine (most inpatients and all outpatients) 10/11/2024 12:52 PM CDT CYTOLOGY FINE NEEDLE ASPIRATION (INCLUDES CORE BIOPSIES Timed 10/11/2024 11:32 AM CDT Angina Unstable (HCC) Pain Chest RENAL FUNCTION PANEL, S Routine 10/11/2024 8:38 AM CDT CBC WITHOUT DIFFERENTIAL, B Routine 10/11/2024 8:38 AM CDT CARDIAC CATHETERIZATION Routine 10/10/2024 4:18 PM CDT Pain Chest DIPSTICK, U Routine 10/10/2024 5:41 AM CDT MICROSCOPIC MANUAL Routine 10/10/2024 5: 41 AM CDT PH, U Routine 10/10/2024 5:41 AM CDT OSMOLALITY, U Routine 10/10/2024 5:41 AM CDT URINALYSIS WITH MICROSCOPIC Routine 10/10/2024 5:41 AM CDT ECG Routine 10/10/2024 4:13 AM CDT US LOWER EXTREMITY VEINS BILATERAL RAD - Emergent (Fastest; for the most critically ill patients) 10/10/2024 1:16 AM CDT US KIDNEYS BILATERAL WITH BLADDER RAD - Semiurgent (Fast; most ED patients; some inpatients) 10/10/2024 1:14 AM CDT RENAL FUNCTION PANEL, S Timed 10/09/2024 11:30 PM CDT CBC WITHOUT DIFFERENTIAL, B Timed 10/09/2024 11:30 PM CDT TROPONIN T, 5TH GEN, P Timed 11:30 PM CDT TYPE AND SCREEN Routine 10/09/2024 11:25 PM CDT ECG Routine 10/09/2024 10:00 PM CDT ECG Routine 10/09/2024 8:57 PM CDT TROPONIN T, 2H/6H REFLEX, 5TH GEN, P Timed 10/09/2024 7:33 PM CDT DX CHEST AP OR PA AND LATERAL 2 VIEWS RAD - Semiurgent (Fast; most ED patients; some inpatients) 10/09/2024 5:47 PM CDT TROPONIN T, BASELINE, 5TH GEN, P STAT 10/09/2024 5:25 PM CDT ACTIVATED PARTIAL THROMBOPLASTIN TIME (APTT), P STAT 10/09/2024 5:25 PM CDT PROTHROMBIN TIME (PT), P STAT 10/09/2024 5:25 PM CDT CBC WITH DIFFERENTIAL, B STAT 10/09/2024 5:25 PM CDT BASIC METABOLIC PANEL, S/P STAT 10/09/2024 5:25 PM CDT ECG STAT 10/09/2024 5:12 PM CDT documented in this encounter Results * (ABNORMAL) Renal Function Panel (10/12/2024 1:08 PM CDT) [facility] Potassium, S 5.0 3.6 - 5.2 mmol/L 10/12/2024 2:25 PM CDT DTL Sodium, S 136 135 - 145 mmol/L 10/12/2024 2:25 PM CDT DTL Chloride, S 100 98 - 107 mmol/L 10/12/2024 2:25 PM CDT DTL Bicarbonate, S 24 22 - 29 mmol/L 10/12/2024 2:25 PM CDT DTL Anion Gap 12 7 - 15 10/12/2024 2:25 PM CDT DTL BUN (Blood Urea Nitrogen), S 23 8 - 24 mg/dL 10/12/2024 2:25 PM CDT DTL Creatinine 1.79(H) 0.74 - 1.35 mg/dL 10/12/2024 2:25 PM CDT DTL Estimated GFR (eGFR) 38(L) >=60 mL/min/BSA 10/12/2024 2:25 PM CDT DTL Comment: Estimated GFR calculated using the 2020 CKD_EPI creatinine equation. Calcium, Total, S 8.6(L) 8.8 - 10.2 mg/dL 10/12/2024 2:25 PM CDT DTL Glucose, S 118 70 - 140 mg/dL 10/12/2024 2:25 PM CDT DTL Albumin, S 3.5 3.5 - 5.0 g/dL 10/12/2024 2:25 PM CDT DTL Phosphorus (Inorganic), S 4.0 2.5 - 4.5 mg/dL 10/12/2024 2:25 PM CDT DTL Blood (Blood, Venous) 10/12/2024 1:08 PM CDT 10/12/2024 1:42 PM CDT Mila Burgess M.D. LAB BLOOD ADD-ON Final Res ult [facility] [address] [place] [address], [facility] [address] [place] [address] * (ABNORMAL) CBC without Differential (10/12/2024 1:08 PM CDT) Hemoglobin 10.4(L) 13.2 - 16.6 g/dL 10/12/2024 1:47 PM CDT DTL Hematocrit 32.6(L) 38.3 - 48.6 % 10/12/2024 1:47 PM CDT DTL Erythrocytes 3.27(L) 4.35 - 5.65 x10(12)/L 10/12/2024 1:47 PM CDT DTL MCV 99.7(H) 78.2 - 97.9 fL 10/12/2024 1:47 PM CDT DTL RBC Distrib Width 13.1 11.8 - 14.5 % 10/12/2024 1:47 PM CDT DTL Platelet Count 361(H) 135 - 317 x10(9)/L 10/12/2024 1:47 PM CDT DTL Leukocytes 10.2(H) 3.4 - 9.6 x10(9)/L 10/12/2024 1:47 PM CDT DTL Blood (Blood, Venous) 10/12/2024 1:08 PM CDT 10/12/2024 1:42 PM CDT Mila Burgess M.D. LAB BLOOD ADD-ON Final Res ult [facility] [address] [place] [address], [place] DTL [facility] [address] [place] [address] * CT Lymph Node Biopsy (10/11/2024 12:52 PM CDT) Anatomical Region Laterality Modality Body, Abdominal RST LOS, Mus culoskeletal ARZ LOS, Neuroradiology ARZ LOS, Vascular Interventional ARZ LOS, Procedure FLA LOS, Abdominal FLA LOS, Procedural, Procedural NWWI LOS Computed Tomography, C omputed Tomography Impressions 10/11/2024 1:[address]-guided left external iliac lymph node biopsy. NR Narrative 10/11/2024 1:09 PM CDT EXAM: CT LYMPH NODE BIOPSY PRE-PROCEDURE: Patient seen, evaluated, history reviewed, and approved for sedation. Airway, heart, and lung exam satisfactory for sedation. Discussed risks, benefits, alternatives for procedure, and/or sedation. The roles and responsibilities of care team members, residents, and fellows were discussed. Patient understands information and questions answered. Informed consent obtained from the patient. Immediately prior to starting the procedure, in the presence of the assisting personnel, a procedural pause was conducted to verify correct patient identity and verification of procedure to be performed, and as applicable, correct side and site, correct patient position, availability of implants, special equipment, or special requirements, and all image and specimen identification data. INTRAPROCEDURE: Moderate sedation was administered by sedation nurse under my supervision. The patient was continuously monitored with real time oxygen saturation, heart rate, ECG rhythm strip and blood pressure throughout administration of the sedation and performance of the procedure. The total intra-procedural sedation time was: 12 minutes. TECHNIQUE: Sterile;1% lidocaine for local anesthesia. Under CT guidance, a 17- gauge introducer was advanced to the margin of an enlarged left external iliac lymph node, corresponding to the lymph node seen on CT 09/03/2024 series 302, image 166. A total of [id number] cores were obtained from the lymph node without complication. TARGET LOCATION: Enlarged left external iliac lymph node TARGET LESION SIZE: 1.9 x 2.3 cm. BIOPSY INSTRUMENT: Coaxial 17/18 gauge Corvocet NUMBER OF SAMPLES OBTAINED: 6 COMPLICATION: None. BLOOD LOSS: None. PATIENT INSTRUCTIONS: Patient may be dismissed from the radiology department when dismissal criteria met. POST-PROCEDURE DIAGNOSIS: Left external iliac lymphadenopathy, query metastatic? Procedure Note Ashlyn Mendenhall M.D. - 10/11/2024 EXAM: CT LYMPH NODE BIOPSY PRE-PROCEDURE: Patient seen, evaluated, history reviewed, and approved forsedation. Airway, heart, and lung exam satisfactory for sedation.Discussed risks, benefits, alternatives for procedure, and/or sedation.The roles and responsibilities of care team members, residents, and fellows were discussed. Patient understandsinformation and questions answered. Informed consent obtained from thepatient. Immediately prior to starting the procedure, in the presence ofthe assisting personnel, a procedural pause was conducted to verify correct patient identity and verificationof procedure to be performed, and as applicable, correct side and site,correct patient position, availability of implants, special equipment, orspecial requirements, and all image and specimen identification data. INTRAPROCEDURE: Moderate sedation was administered by sedation nurse undermy supervision. The patient was continuously monitored with real timeoxygen saturation, heart rate, ECG rhythm strip and blood pressurethroughout administration of the sedation and performance of the procedure. The total intra-procedural sedation timewas: 12 minutes. TECHNIQUE: Sterile;1% lidocaine for local anesthesia. Under CT guidance, a17- gauge introducer was advanced to the margin of an enlarged leftexternal iliac lymph node, corresponding to the lymph node seen on CT09/03/2024 series 302, image 166. A total of [id number] cores were obtained from the lymph node withoutcomplication. TARGET LOCATION: Enlarged left external iliac lymph node TARGET LESION SIZE: 1.9 x 2.3 cm. BIOPSY INSTRUMENT: Coaxial 17/18 gauge Corvocet NUMBER OF SAMPLES OBTAINED: 6 COMPLICATION: None. BLOOD LOSS: None. PATIENT INSTRUCTIONS: Patient may be dismissed from the radiologydepartment when dismissal criteria met. POST-PROCEDURE DIAGNOSIS: Left external iliac lymphadenopathy, querymetastatic? IMPRESSION: CT-guided left external iliac lymph node biopsy. NR Mila A Young M.D. IMG CT PROCEDURES Final Re sult * (ABNORMAL) Cytology Fine Needle Aspiration (including core biopsies) (10/11/2024 11:32 AM CDT) (A) 12:58 PM CDT DTL Report electronically signed by Johan Grossman M.D. I verify that I have examined all relevant slides/materials for the specimen(s) and rendered or confirmed the diagnosis. (A) 10/15/2024 12:58 PM CDT DTL Gross Description Received 6 alcohol-fixed smears and tissue. Additionally, received in formalin labeled with the patient's name, medical record number and pelvis, left, lymph node are nine abraham-redsoft tissue fragments, measuring 0.1-0.4 cm in length. The specimens are submitted en toto in cassette A1. Grossed by LMB. (A) 10/15/2024 12:58 PM CDT DTL Source A. Lymph node, left pelvis, fine needle aspiration(A) 10/15/2024 12:58 PM CDT DTL Interpretation A. Lymph node, left pelvis, fine needle aspiration (smears/core biopsy): Positive for malignancy. Metastatic urothelial carcinoma with micropapillary features. Immunohistochemic al stains were performed at [facility] (block A1). 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 Digital imaging was used in the diagnostic assessment of this case. (A) 10/15/2024 12:58 PM CDT DTL Tissue (Pelvis, Left) 10/11/2024 11:32 AM CDT us Mila Burgess M.D. LAB SURG PATH ORDERABLES F inal Result [facility] [address] [place] [address], [facility] DTL [address] [place] [address] * (ABNORMAL) Renal Function Panel (10/11/2024 8:38 AM CDT) Potassium, S 4.6 3.6 - 5.2 mmol/L 10/11/2024 11:19 AM CDT DTL Sodium, S 137 135 - 145 mmol/L 10/11/2024 11:19 AM CDT DTL Chloride, S 101 98 - 107 mmol/L 10/11/2024 11:19 AM CDT DTL Bicarbonate, S 23 22 - 29 mmol/L 10/11/2024 11:19 AM CDT DTL Anion Gap 13 7 - 15 10/11/2024 11:19 AM CDT DTL BUN (Blood Urea Nitrogen), S 23 8 - 24 mg/dL 10/11/2024 11:19 AM CDT DTL Creatinine 1.74(H) 0.74 - 1.35 mg/dL 10/11/2024 11:19 AM CDT DTL Estimated GFR (eGFR) 39(L) >=60 mL/min/BSA 10/11/2024 11:19 AM CDT DTL Comment: Estimated GFR calculated using the 2020 CKD_EPI creatinine equation. Calcium, Total, S 8.2(L) 8.8 - 10.2 mg/dL 10/11/2024 11:19 AM CDT DTL Glucose, S 79 70 - 140 mg/dL 10/11/2024 11:19 AM CDT DTL Albumin, S 3.2(L) 3.5 - 5.0 g/dL 10/11/2024 11:19 AM CDT DTL Phosphorus (Inorganic), S 3.9 2.5 - 4.5 mg/dL 10/11/2024 11:19 AM CDT DTL Blood (Blood, Venous) 10/11/2024 8:38 AM CDT 10/11/2024 10:29 AM CDT us Mila Burgess M.D. LAB BLOOD ADD-ON Final Res ult [facility] [address] [place] [address], [place] [facility] [address] [place] [address] * (ABNORMAL) CBC without Differential (10/11/2024 8:38 AM CDT) Hemoglobin 10.3(L) 13.2 - 16.6 g/dL 10/11/2024 10:31 AM CDT DTL Hematocrit 30.7(L) 38.3 - 48.6 % 10/11/2024 10:31 AM CDT DTL Erythrocytes 3.05(L) 4.35 - 5.65 x10(12)/L 10/11/2024 10:31 AM CDT DTL MCV 100.7(H) 78.2 - 97.9 fL 10/11/2024 10:31 AM CDT DTL RBC Distrib Width 13.2 11.8 - 14.5 % 10/11/2024 10:31 AM CDT DTL Platelet Count 323(H) 135 - 317 x10(9)/L 10/11/2024 10:31 AM CDT DTL Leukocytes 12.8(H) 3.4 - 9.6 x10(9)/L 10/11/2024 10:31 AM CDT DTL Blood (Blood, Venous) 10/11/2024 8:38 AM CDT 10/11/2024 10:08 AM CDT Mila Burgess M.D. LAB BLOOD [place] [address], [facility] [place] [address] * CORONARY ANGIOGRAPHY (10/10/2024 4:18 PM CDT) Anatomical Region Laterality Modality X-Ray Angiograph y 10/10/2024 3:43 PM CDT Narrative 10/10/2024 4:58 PM CDT For the complete report, see the Order-Level Documents. PROCEDURE TYPES 1. CORONARY ANGIOGRAPHY FINAL DIAGNOSIS 1. Severe coronary artery atherosclerosis 2. PRODUCTION MATERIAL COORDINATOR (Chronic Total Occlusion) 3. Coronary artery collateral circulation 4. Coronary calcification PRE-PROCEDURE DIAGNOSIS 1. Pain Chest COMMENTS 78 yo M admitted for concern for unstable angina. Flat but elevated troponins. Recent nuclear exercise stress did not show ischemia. Heavily calcified coronaries on CT. Bladder mass with hematuria and significant bleeding, so elected not to heparinize or give Plavix, so aspirin monotherapy prior to coming to the lab. We performed 5 Fr RFA micropuncture access with US and fluoro guidance. There was an iliac stenosis overcome using a STORQ wire, and the 5 Fr catheters easily traversed the stenosis. We then performed the angiogram outline below. Briefly, mild LM, severe mid LAD disease (diffuse moderate proximal LAD disease), hazy severe ostial ramus lesion, and likely proximal LCx disease as well. There is an RCA PRODUCTION MATERIAL COORDINATOR with good left to right collaterals. Discussed with Dr. Marroquin, and he will work out what they'd like to do clinically. He has targets on the LAD, ramus, and rPL branch (larger and healthier than the rPDA). Patient sent to recovery in stable condition. CORONARY DIAGNOSTIC SUMMARY Coronary artery dominance is right. The left main coronary artery is 20% obstructed by a discrete lesion. The proximal left anterior descending artery is 50% obstructed by a discrete lesion and 30% obstructed by diffuse disease. The middle left anterior descending artery is 70% obstructed by a discrete lesion and 40% obstructed by a tubular lesion. The proximal circumflex artery is 70% obstructed by a discrete lesion. The distal circumflex artery is 30% obstructed by multiple discrete lesions. The ramus intermedius segment is 80% obstructed by a discrete lesion. The distal segment is normal size. The proximal right coronary artery is 50% obstructed by a tubular lesion. The middle right coronary artery is 50% obstructed by a tubular lesion. The distal right coronary artery is 100% obstructed by a discrete lesion and 100% obstructed by a discrete lesion. The right posterior descending artery is 99% obstructed by a discrete lesion. Receives collaterals from the distal left anterior descending artery and second septal supervisor food checkers and cashiers. The right posterolateral segment is 99% obstructed by a discrete lesion. Receives collaterals from the distal circumflex artery, left atrioventricular groove branch and ramus intermedius segment. RADIATION DOSE DATA Procedure cumulative skin dose (mGy): 569.57 Procedure cumulative dose area product (Gy-cm2): 45.62 Fluoro Time (Min): 6.92 CONTRAST DOSE DATA iohexoL 350 mg iodine/mL solution (Omnipaque): 60mL For the complete report, see the Order-Level Documents. Procedure Note Grey Gomez M.D. - 10/10/2024 For the complete report, see the Order-Level Documents. PROCEDURE TYPES 1. CORONARY ANGIOGRAPHY FINAL DIAGNOSIS 1. Severe coronary artery atherosclerosis 2. PRODUCTION MATERIAL COORDINATOR (Chronic Total Occlusion) 3. Coronary artery collateral circulation 4. Coronary calcification PRE-PROCEDURE DIAGNOSIS 1. Pain Chest COMMENTS 78 yo M admitted for concern for unstable angina. Flat but elevatedtroponins. Recent nuclear exercise stress did not show ischemia. Heavilycalcified coronaries on CT. Bladder mass with hematuria and significantbleeding, so elected not to heparinize or give Plavix, so aspirinmonotherapy prior to coming to the lab. We performed 5 Fr RFAmicropuncture access with US and fluoro guidance. There was an iliacstenosis overcome using a Carritus wire, and the 5 Fr catheters easilytraversed the stenosis. We then performed the angiogram outline below.Briefly, mild LM, severe mid LAD disease (diffuse moderate proximal LADdisease), hazy severe ostial ramus lesion, and likely proximal LCx diseaseas well. There is an RCA PRODUCTION MATERIAL COORDINATOR with good left to right collaterals.Discussed with Dr. Marroquin, and he will work out what they'd like to doclinically. He has targets on the LAD, ramus, and rPL branch (larger andhealthier than the rPDA). Patient sent to recovery in stable condition. CORONARY DIAGNOSTIC SUMMARY Coronary artery dominance is right. The left main coronary artery is 20% obstructed by a discrete lesion. The proximal left anterior descending artery is 50% obstructed by adiscrete lesion and 30% obstructed by diffuse disease. The middle left anterior descending artery is 70% obstructed by a discretelesion and 40% obstructed by a tubular lesion. The proximal circumflex artery is 70% obstructed by a discrete lesion. The distal circumflex artery is 30% obstructed by multiple discretelesions. The ramus intermedius segment is 80% obstructed by a discrete lesion. Thedistal segment is normal size. The proximal right coronary artery is 50% obstructed by a tubular lesion. The middle right coronary artery is 50% obstructed by a tubular lesion. The distal right coronary artery is 100% obstructed by a discrete lesionand 100% obstructed by a discrete lesion. The right posterior descending artery is 99% obstructed by a discretelesion. Receives collaterals from the distal left anterior descendingartery and second septal supervisor food checkers and cashiers. The right posterolateral segment is 99% obstructed by a discrete lesion.Receives collaterals from the distal circumflex artery, leftatrioventricular groove branch and ramus intermedius segment. RADIATION DOSE DATA Procedure cumulative skin dose (mGy): 569.57 Procedure cumulative dose area product (Gy-cm2): 45.62 Fluoro Time (Min): 6.92 CONTRAST DOSE DATA iohexoL 350 mg iodine/mL solution (Omnipaque): 60mL For the complete report, see the Order-Level Documents. Guicho Duggan M.D. CV CARDIAC CATH PROCEDURES Fi nal Result * (ABNORMAL) Microscopic Manual (10/10/2024 5:41 AM CDT) Microscopy Abnormal 10/10/2024 6:44 AM CDT DTL RBC 11-20(A) <3 /hpf 10/10/2024 6:44 AM CDT DTL Dysmorphic RBC <25 <25 % 10/10/2024 6:44 AM CDT DTL WBC 4-10(A) /hpf 10/10/2024 6:44 AM CDT DTL Comment: ----REFERENCE VALUE---- <4 (Males) <11 (Females) Bacteria Present(A) 10/10/2024 6:44 AM CDT DTL Urine 10/10/2024 5:41 AM CDT 10/10/2024 6:08 AM CDT Mario Musa M.D. LAB URINE ORDERABLES Final Resu lt [facility] [address] [place] [address], [facility] DTL [facility] [address] [place] [address] * (ABNORMAL) Dipstick, Urine (10/10/2024 5:41 AM CDT) Hemoglobin, QL, U Large(A) Negative 10/10/2024 6:11 AM CDT DTL Leukocyte Esterase, U Large(A) Negative 10/10/2024 6:11 AM CDT DTL Nitrite, U Negative Negative 10/10/2024 6:11 AM CDT DTL Ketone, U Negative Negative mg/dL 10/10/2024 6:11 AM CDT DTL Glucose, U Negative Negative mg/dL 10/10/2024 6:11 AM CDT DTL Urine 10/10/2024 5:41 AM CDT 10/10/2024 5:58 AM CDT Mario Musa M.D. LAB URINE ORDERABLES Final Resu lt Performing Organization Address City/[facility]/ZIP Co de Phone Number [facility] [address] [place] [address] * pH, Urine (10/10/2024 5:41 AM CDT) pH, U 5.8 4.5 - 8.0 10/10/2024 6:1 9 AM CDT DTL Urine 10/10/2024 5:41 AM CDT 10/10/2024 5:58 AM CDT us Mario Musa M.D. LAB URINE ORDERABLES Final Resu Performing Organization Address [facility] Co de Phone Number [facility] 200 [place] [address] * Osmolality, Urine (10/10/2024 5:41 AM CDT) Osmolality, U 215 150 - 1150 mOsm/kg 10/10/2024 6:19 AM CDT DTL Urine 10/10/2024 5:41 AM CDT 10/10/2024 5:58 AM CDT us Mario Musa M.D. LAB URINE ORDERABLES Final Resu lt [facility] [address] [place] [address], [facility] [address] [place] [address] * (ABNORMAL) Urinalysis, with Microscopic: Urine, Catheter (10/10/2024 5:41 AM CDT) Source Urine, Urine, Catheter 10/10/2024 5:58 AM CDT DTL Color, U Yellow 10/10/2024 5:58 AM CDT DTL Clarity, U Clear 10/10/2024 5:58 AM CDT DTL Protein, U 59(H) <26 mg/dL 10/10/2024 6:30 AM CDT DTL Protein/Osmola lity 2.74(H) <0.42 ratio 10/10/2024 6:30 AM CDT DTL Predicted 24 HR Protein, U 2464(H) <229 mg/24 h 10/10/2024 6:30 AM CDT DTL Predicted Range 782-7764 mg/24 h 10/10/2024 6:30 AM CDT DTL Urine (Urine, Catheter) 10/10/2024 5:41 AM CDT 10/10/2024 5:58 AM CDT Mila Burgess M.D. LAB URINE ORDERABLES Final Result Performing Organization Address [facility] Co de Phone Number [facility] [address] [place] [address], [facility] [address] [place] [address] * ECG 12 Lead (10/10/2024 4:13 AM CDT) Ventricular Rate ECG/Min 58 BPM MUSE WI Interval 168 ms MUSE QRSD Interval 76 ms MUSE QT Interval 418 ms MUSE QTC Interval 410 ms MUSE P Fries 79 degrees MUSE R Fries 24 degrees MUSE T Wave Fries 17 degrees MUSE 10/10/2024 4:13 AM CDT 10/10/2024 4:18 AM CDT Impressions MUSE - 10/10/2024 4:18 AM CDT Sinus bradycardia Otherwise normal ECG When compared with ECG of 09-Oct-2024 22:00, No significant change was found Reviewed by JIM Aguirre Narrative Procedure Note Tobi Camacho M.D. - 10/10/2024 IMPRESSION: Sinus bradycardia Otherwise normal ECG When compared with ECG of 09-Oct-2024 22:00, No significant change was found Reviewed by JIM Aguirre us Mila Burgess M.D. ECG ORDERABLES Final Resu lt MUSE NA * US Lower Extremity Veins Bilateral (10/10/2024 1:16 AM CDT) Anatomical Region Laterality Modality Lower Extremity, Ultrasound RST LOS, Ultrasound ARZ LOS, Ultrasound FLA LOS Bilateral Ultrasound Impressions 10/10/2024 8:00 AM CDT 1. Negative for acute DVT in the bilateral lower extremities. 2. 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 Narrative 10/10/2024 8:00 AM CDT EXAM: US LOWER EXTREMITY VEINS BILATERAL Exam performed with color and spectral Doppler analysis. COMPARISON: Bilateral lower extremity venous Doppler ultrasound 07/15/2020. FINDINGS: RIGHT: Common Femoral Vein: Negative. Profunda Femoral Vein: Negative. Femoral Vein: Negative. Popliteal Vein: Negative. Gastrocnemius Veins: Negative where seen. Soleal Veins: Chronic post thrombotic changes. Posterior Tibial Veins: Negative where seen. Peroneal Veins: Negative where seen. Great Saphenous Vein: Negative where seen. Small Saphenous Vein: Not Evaluated. Popliteal Fossa: Negative. Other: None. LEFT: Common Femoral Vein: Negative. Profunda Femoral Vein: Negative. Femoral Vein: Negative. Popliteal Vein: Negative. Gastrocnemius Veins: Negative where seen. Soleal Veins: Negative where seen. Posterior Tibial Veins: Negative where seen. Peroneal Veins: Negative where seen. Great Saphenous Vein: Negative where seen. Small Saphenous Vein: Not Evaluated. Popliteal Fossa: Negative. Other: None. Information on venous thrombosis and management can be found on the [email or web address] site. Link [email or web address] Procedure Note Judy Ibrahim M.D. - 10/10/2024 EXAM: US LOWER EXTREMITY VEINS BILATERAL Exam performed with color and spectral Doppler analysis. COMPARISON: Bilateral lower extremity venous Doppler ultrasound07/15/2020. FINDINGS: RIGHT: Common Femoral Vein: Negative. Profunda Femoral Vein: Negative. Femoral Vein: Negative. Popliteal Vein: Negative. Gastrocnemius Veins: Negative where seen. Soleal Veins: Chronic post thrombotic changes. Posterior Tibial Veins: Negative where seen. Peroneal Veins: Negative where seen. Great Saphenous Vein: Negative where seen. Small Saphenous Vein: Not Evaluated. Popliteal Fossa: Negative. Other: None. LEFT: Common Femoral Vein: Negative. Profunda Femoral Vein: Negative. Femoral Vein: Negative. Popliteal Vein: Negative. Gastrocnemius Veins: Negative where seen. Soleal Veins: Negative where seen. Posterior Tibial Veins: Negative where seen. Peroneal Veins: Negative where seen. Great Saphenous Vein: Negative where seen. Small Saphenous Vein: Not Evaluated. Popliteal Fossa: Negative. Other: None. Information on venous thrombosis and management can be found on [employer] site. [email or web address] IMPRESSION: 1. Negative for acute DVT in the bilateral lower extremities. 2. 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 us Mila Burgess M.D. IMG US PROCEDURES Final Re sult * US Kidneys Bilateral with Bladder (10/10/2024 1:14 AM CDT) Anatomical Region Laterality Modality Abdomen, Renal, Ultrasound R ST LOS, Ultrasound ARZ LOS, Ultrasound FLA LOS Bilateral Ultrasound Impressions 10/10/2024 8:18 AM CDT 1. Moderate bilateral hydronephrosis, similar to recent CT. 2. Irregular masslike thickening of the bladder wall, consistent with known malignancy. Narrative 10/10/2024 8:18 AM CDT EXAM: US KIDNEYS BILATERAL WITH BLADDER COMPARISON: Outside CT abdomen/pelvis with IV contrast 08/12/2024, CT urogram 09/03/2024. FINDINGS: Right kidney: 11.5 cm. Cortical thickness: Normal. Parenchymal echogenicity: Normal. Collecting system: Moderate hydronephrosis. Masses: None detected. Left kidney: 11.6 cm. Cortical thickness: Normal. Parenchymal echogenicity: Normal. Collecting system: Moderate hydronephrosis. Masses: None detected. Bladder: Irregular masslike thickening of the wall with intraluminal Molina catheter. Decompressed lumen. Procedure Note Judy Ibrahim M.D. - 10/10/2024 EXAM: US KIDNEYS BILATERAL WITH BLADDER COMPARISON: Outside CT abdomen/pelvis with IV contrast 08/12/2024, CTurogram 09/03/2024. FINDINGS: Right kidney: 11.5 cm. Cortical thickness: Normal. Parenchymal echogenicity: Normal. Collecting system: Moderate hydronephrosis. Masses: None detected. Left kidney: 11.6 cm. Cortical thickness: Normal. Parenchymal echogenicity: Normal. Collecting system: Moderate hydronephrosis. Masses: None detected. Bladder: Irregular masslike thickening of the wall with intraluminal Foleycatheter. Decompressed lumen. IMPRESSION: 1. Moderate bilateral hydronephrosis, similar to recent CT. 2. 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 us Mila Burgess M.D. IMG US PROCEDURES Final Re sult * (ABNORMAL) Renal Function Panel (10/09/2024 11:30 PM CDT) Potassium, S 4.5 3.6 - 5.2 mmol/L 10/10/2024 12:25 AM CDT DTL Sodium, S 137 135 - 145 mmol/L 10/10/2024 12:25 AM CDT DTL Chloride, S 103 98 - 107 mmol/L 10/10/2024 12:25 AM CDT DTL Bicarbonate, S 24 22 - 29 mmol/L 10/10/2024 12:25 AM CDT DTL Anion Gap 10 7 - 15 10/10/2024 12:25 AM CDT DTL BUN (Blood Urea Nitrogen), S 25(H) 8 - 24 mg/dL 10/10/2024 12:25 AM CDT DTL Creatinine 1.55(H) 0.74 - 1.35 mg/dL 10/10/2024 12:25 AM CDT DTL Estimated GFR (eGFR) 45(L) >=60 mL/min/BSA 10/10/2024 12:25 AM CDT DTL Comment: Estimated GFR calculated using the 2020 CKD_EPI creatinine equation. Calcium, Total, S 8.4(L) 8.8 - 10.2 mg/dL 10/10/2024 12:25 AM CDT DTL Glucose, S 115 70 - 140 mg/dL 10/10/2024 12:25 AM CDT DTL Albumin, S 3.2(L) 3.5 - 5.0 g/dL 10/10/2024 12:25 AM CDT DTL Phosphorus (Inorganic), S 3.5 2.5 - 4.5 mg/dL 10/10/2024 12:25 AM CDT DTL Blood (Blood, Venous) 10/09/2024 11:30 PM CDT 10/10/2024 12:03 AM CDT us Mila Burgess M.D. LAB BLOOD ADD-ON Final Res ult [facility] [address] [place] [address], [facility] [address] [place] [address] * (ABNORMAL) Troponin T, 5th Generation (10/09/2024 11:30 PM CDT) Troponin T, 5th gen 31(H) <=15 ng/L 10/09/2024 11:53 PM CDT STMA Blood (Blood, Venous) 10/09/2024 11:30 PM CDT 10/09/2024 11:37 PM CDT us Mila Burgess M.D. LAB BLOOD ADD-ON Final Res ult Performing Organization Address [facility] Co de Phone Number [facility] [address] [place], [place] [address] STMA [facility] [address] [place] [address] * (ABNORMAL) CBC without Differential (10/09/2024 11:30 PM CDT) Hemoglobin 9.5(L) 13.2 - 16.6 g/dL 10/10/2024 12:33 AM CDT DTL Hematocrit 28.2(L) 38.3 - 48.6 % 10/10/2024 12:33 AM CDT DTL Erythrocytes 2.87(L) 4.35 - 5.65 x10(12)/L 10/10/2024 12:33 AM CDT DTL MCV 98.3(H) 78.2 - 97.9 fL 10/10/2024 12:33 AM CDT DTL RBC Distrib Width 13.1 11.8 - 14.5 % 10/10/2024 12:33 AM CDT DTL Platelet Count 280 135 - 317 x10(9)/L 10/10/2024 12:33 AM CDT DTL Leukocytes 8.4 3.4 - 9.6 x10(9)/L 10/10/2024 12:33 AM CDT DTL Blood (Blood, Venous) 10/09/2024 11:30 PM CDT 10/09/2024 11:53 PM CDT us Mila Burgess M.D. LAB BLOOD ADD-ON Final Res ult Performing Organization Address City/[facility]/ZIP Co de Phone Number [facility] [address] [place] [address], [facility] DTL [facility] [address] [place] [address] * Type and Screen (with Reflex Antibody ID) (10/09/2024 11:25 PM CDT) ABORh O Neg Not applicable 10/10/2024 1:17 AM CDT STRM Antibody Screen Negative Negative 10/10/2024 1:30 AM CDT STRM Type & Screen Expiration 10/12/2024 23:59 10/10/2024 1:17 AM CDT STRM Testing Location [place] DEFAULT 10/10/2024 12:50 AM CDT STRM Blood (Blood, Venous) 10/09/2024 11:25 PM CDT 10/10/2024 12:50 AM CDT Mila Burgess M.D. LAB BLOOD BANK TEST ORDERA BLES Final Result Performing Organization Address [facility] de Phone Number [facility] [address] [place] [address], [facility] STRM [facility] [address] [place] [address] * ECG 12 Lead (10/09/2024 10:00 PM CDT) Ventricular Rate ECG/Min 58 BPM MUSE WI Interval 172 ms MUSE QRSD Interval 80 ms MUSE QT Interval 412 ms MUSE QTC Interval 404 ms MUSE P Fries 41 degrees MUSE R Fries 38 degrees MUSE T Wave Fries 33 degrees MUSE 10/09/2024 10:0 0 PM CDT 10/09/2024 10:06 PM CDT Impressions MUSE - 10/09/2024 10:06 PM CDT Sinus bradycardia Otherwise normal ECG When compared with ECG of 09-Oct-2024 20:57, T wave inversion less evident in Inferior leads Reviewed by JIM Aguirre Narrative Procedure Note Tobi Camacho M.D. - 10/09/2024 IMPRESSION: Sinus bradycardia Otherwise normal ECG When compared with ECG of 09-Oct-2024 20:57, T wave inversion less evident in Inferior leads Reviewed by JIM Aguirre us Spencer Marroquin M.D. ECG ORDERABLES Final Resu lt Performing Organization Address [facility] Co de Phone Number MUSE NA * ECG 12 Lead (10/09/2024 8:57 PM CDT) Ventricular Rate ECG/Min 63 BPM MUSE WI Interval 166 ms MUSE QRSD Interval 76 ms MUSE QT Interval 398 ms MUSE QTC Interval 407 ms MUSE P Fries 24 degrees MUSE R Fries 7 degrees MUSE T Wave Fries 0 degrees MUSE 10/09/2024 8:57 PM CDT 10/18/2024 1:55 AM CDT Impressions MUSE - 10/09/2024 9:04 PM CDT Normal sinus rhythm Nonspecific ST abnormality When compared with ECG of 09-Oct-2024 17:12, T wave inversion more evident in Lead III Revised Report Narrative Procedure Note Tobi Camacho M.D. - 10/18/2024 IMPRESSION: Normal sinus rhythm Nonspecific ST abnormality When compared with ECG of 09-Oct-2024 17:12, T wave inversion more evident in Lead III Revised Report Spencer Marroquin M.D. ECG ORDERABLES Edited Res ult - Final MUSE NA * (ABNORMAL) Troponin T, 2 Hour with 6 Hour Reflex, 5th Gen (10/09/2024 7:33 PM CDT) Troponin T, 2 hr, 5th gen 31(H) <=15 ng/L 10/09/2024 8:00 PM CDT STMA 2H Delta -2 ng/L 10/09/2024 8:00 PM CDT STMA Comment:6 hour collection no t indicated. 2H Delta Interp Not Changing 10/09/2024 8:00 PM CDT STMA Blood 10/09/2024 7:33 PM CDT 10/09/2024 7:38 PM CDT Zuri Harvey P.A.-C., M.S. LAB BLOOD TROPONIN Fi nal Result Performing Organization Address City/[facility]/ZIP Co de Phone Number [facility] [address] [place] [address], [place] STMA [facility] [address] [place] [address] * DX Chest AP or PA and Lateral 2 Views (10/09/2024 5:47 PM CDT) Anatomical Region Laterality Modality Chest, Thoracic RST LOS, Tho racic ARZ LOS, Thoracic FLA LOS N/A Digital Radiography Impressions 10/09/2024 5:53 PM CDT No significant change since CT of the chest from 10/01/2024. No focal consolidation, pneumothorax, or pleural effusion. Normal cardiac silhouette. Right mediastinal convexity, which corresponds to the dilated ascending aorta seen on the CT scan from 10/01/2024. Partial visualization of postoperative changes lumbar spine. Narrative 10/09/2024 5:53 PM CDT EXAM: DX CHEST AP OR PA AND LATERAL 2 VIEWS Procedure Note Spencer Gonzales M.D. - 10/09/2024 EXAM: DX CHEST AP OR PA AND LATERAL 2 VIEWS IMPRESSION: No significant change since CT of the chest from 10/01/2024. No focalconsolidation, pneumothorax, or pleural effusion. Normal cardiacsilhouette. Right mediastinal convexity, which corresponds to the dilatedascending aorta seen on the CT scan from 10/01/2024. Partial visualization of postoperative changes lumbarspine. us Zuri Harvey P.A.-C., M.S. IMG DIAGNOSTIC IMAGIN G PROCEDURES Final Result * APTT (Activated Partial Thromboplastin Time) (10/09/2024 5:25 PM CDT) Activated Partial Thrombopl Time, P 28 25 - 37 sec 10/09/2024 5:41 PM CDT STMA Blood (Blood, Venous) 10/09/2024 5:25 PM CDT 10/09/2024 5:31 PM CDT us Zuri Harvey P.A.-C., M.S. LAB BLOOD ADD-ON Gabriella l Result [facility] [address] [place] [address] * Prothrombin Time (PT) (10/09/2024 5:25 PM CDT) [facility] Prothrombin Time, P 12.4 9.4 - 12.5 sec 10/09/2024 5:38 PM CDT [facility] INR 1.1 0.9 - 1.1 10/09/2024 5:38 PM CDT [facility] Comment: ----ADDITIONAL INFORMATION---- Standard intensity warfarin therapeutic range: 2.0 to 3.0 High intensity warfarin therapeutic range: 2.5 to 3.5 Blood (Blood, Venous) 10/09/2024 5:25 PM CDT 10/09/2024 5:31 PM CDT Zuri Harvey P.A.-C., M.S. LAB BLOOD ADD-ON Gabriella l Result [facility] [address] [place] [address] * (ABNORMAL) Troponin T, Baseline with 2 Hour/6 Hour Reflex Biomarker Panel (10/09/2024 5:25 PM CDT) [facility] Troponin T, Baseline, 5th gen 33(H) <=15 ng/L 10/09/2024 6:22 PM CDT [facility] Blood (Blood, Venous) 10/09/2024 5:25 PM CDT 10/09/2024 5:31 PM CDT us Zuri Harvey P.A.-C., M.S. LAB BLOOD TROPONIN Fi nal Result [facility] [address] [place] [address] * (ABNORMAL) Basic Metabolic Panel (10/09/2024 5:25 PM CDT) Potassium, P 4.8 3.6 - 5.2 mmol/L 10/09/2024 5:50 PM CDT STMA Sodium, P 134(L) 135 - 145 mmol/L 10/09/2024 5:50 PM CDT STMA Chloride, P 99 98 - 107 mmol/L 10/09/2024 5:50 PM CDT STMA Bicarbonate, P 24 22 - 29 mmol/L 10/09/2024 5:50 PM CDT STMA Anion Gap, P 11 7 - 15 10/09/2024 5:50 PM CDT STMA BUN (Blood Urea Nitrogen), P 26(H) 8 - 24 mg/dL 10/09/2024 5:50 PM CDT STMA Creatinine 1.53(H) 0.74 - 1.35 mg/dL 10/09/2024 5:50 PM CDT STMA Estimated GFR (eGFR) 46(L) >=60 mL/min/BSA 10/09/2024 5:50 PM CDT STMA Comment: Estimated GFR calculated using the 2020 CKD_EPI creatinine equation. Calcium, Total, P 9.0 8.8 - 10.2 mg/dL 10/09/2024 5:50 PM CDT STMA Glucose, P 108 70 - 140 mg/dL 10/09/2024 5:50 PM CDT STMA Blood (Blood, Venous) 10/09/2024 5:25 PM CDT 10/09/2024 5:31 PM CDT Zuri Harvey P.A.-C., M.S. LAB BLOOD ADD-ON Gabriella l Result [facility] [address] [place] [address], [facility] [address] [place] [address] * (ABNORMAL) CBC with Differential, Blood (10/09/2024 5:25 PM CDT) Hemoglobin 9.9(L) 13.2 - 16.6 g/dL 10/09/2024 5:33 PM CDT STMA Hematocrit 29.7(L) 38.3 - 48.6 % 10/09/2024 5:33 PM CDT STMA Erythrocytes 2.97(L) 4.35 - 5.65 x10(12)/L 10/09/2024 5:33 PM CDT STMA MCV 100.0(H) 78.2 - 97.9 fL 10/09/2024 5:33 PM CDT STMA RBC Distrib Width 13.2 11.8 - 14.5 % 10/09/2024 5:33 PM CDT STMA Platelet Count 308 135 - 317 x10(9)/L 10/09/2024 5:33 PM CDT STMA Leukocytes 9.2 3.4 - 9.6 x10(9)/L 10/09/2024 5:33 PM CDT STMA Neutrophils 6.87(H) 1.56 - 6.45 x10(9)/L 10/09/2024 5:33 PM CDT DHPM Lymphocytes 1.42 0.95 - 3.07 x10(9)/L 10/09/2024 5:33 PM CDT STMA Monocytes 0.73 0.26 - 0.81 x10(9)/L 10/09/2024 5:33 PM CDT STMA Eosinophils 0.11 0.03 - 0.48 x10(9)/L 10/09/2024 5:33 PM CDT STMA Basophils 0.04 0.01 - 0.08 x10(9)/L 10/09/2024 5:33 PM CDT STMA Blood (Blood, Venous) 10/09/2024 5:25 PM CDT 10/09/2024 5:31 PM CDT Zuri Harvey P.A.-C., M.S. LAB BLOOD ADD-ON Gabriella l Result [facility] [address] [place] [address], [facility] STMA [facility] [address] [place] [address] DHPM [facility] [address] [place] [address] * ECG 12 Lead (10/09/2024 5:12 PM CDT) Ventricular Rate ECG/Min 63 BPM MUSE WI Interval 170 ms MUSE QRSD Interval 74 ms MUSE QT Interval 392 ms MUSE QTC Interval 401 ms MUSE P Fries 8 degrees MUSE R Fries 34 degrees MUSE T Wave Fries 34 degrees MUSE 10/09/2024 5:12 PM CDT 10/09/2024 5:21 PM CDT Impressions MUSE - 10/09/2024 5:21 PM CDT Normal sinus rhythm Normal ECG When compared with ECG of 09-Oct-2024 14:48, No significant change was found Reviewed by JIM Butts Narrative Procedure Note Tobi Camacho M.D. - 10/09/2024 IMPRESSION: Normal sinus rhythm Normal ECG When compared with ECG of 09-Oct-2024 14:48, No significant change was found Reviewed by JMI Butts Zuri Harvey P.A.-C., M.S. ECG ORDERABLES Final Result MUSE NA documented in this encounter Visit Diagnoses Diagnosis Angina Unstable (HCC)- Primary Angina Unstable (HCC) Pain Chest Decline Functional Status [R53.81] Malaise [R53.81] Pain Chest documented in this encounter Admitting Diagnoses Diagnosis Angina Unstable (HCC) documented in this encounter Administered Medications Inactive Administered Medications - up to 3 most recent administrations Medication Order MAR Action Action Date Dose Rate Site acetaminophen tablet 1,000 mg (TylenoL) 1,000 mg, oral, 4 times daily, First dose on Tue10/09/24 at 2100, Not to exceed 4 grams of acetaminophen in 24 hours all sources Given 10/12/2024 12:23 PM CDT 1,000 mg Given 10/12/2024 8:02 AM CDT 1,000 mg Given 10/11/2024 11:24 PM CDT 1,000 mg aspirin chewable tablet 324 mg 324 mg, oral, Once, On Tue10/09/24 at 1716, For 1 dose Given 10/09/2024 5:50 PM CDT 324 mg aspirin chewable tablet 324 mg 324 mg, oral, Once, On Tue10/10/24 at 1400, For 1 dose, Preprocedure (CV) Given 10/10/2024 1:32 PM CDT [address] tablet 81 mg 81 mg, oral, Daily, First dose on Tue10/11/24 at 1100, Swallow whole. Do NOT crush, chew, or split tablet. Given 10/12/2024 8:02 AM CDT 81 mg Given 10/11/2024 1:18 PM CDT 81 mg D5W infusion 1-999 mL/hr, intravenous, As needed, Medications Incompatible with 0.9% NaCL, Starting on Tue10/11/24 at 0847, Infuse at the same rate as the piggyback until tubing clears or up to a volume of 20 mL pre and post infusion for medications incompatible with 0.9% NaCL. Use 50 mL bag then discard. fentaNYL injection 25 mcg (Sublimaze) 25 mcg, intravenous, Every 2 min PRN, sedation, Administer over 1 minute immediately prior to the procedure. May repeat every 2 minutes to a maximum of 200 mcg, until pain score of 3 or less, or until the patient meets the pain comfort goal, or RASS 0 to -2. Do not give if respiratory rate is less than 8 breaths/minute., Starting on Charisse 10/11/24 at 1215, Intraprocedure (RAD), Subsequent doses Given 10/11/2024 12:23 PM CDT 25 m cg Given 10/11/2024 12:21 PM CDT 25 mcg finasteride tablet 5 mg (Proscar) 5 mg, oral, Daily, First dose on Tue10/10/24 at 0900, See tube feeding guidelines for tube feeding administration instructions. Given 10/12/2024 8:03 AM CDT 5 mg Given 10/11/2024 8:46 AM CDT 5 mg Given 10/10/2024 9:32 AM CDT 5 mg heparin (porcine) 100 Units/mL in NaCl 0.45% 250 mL infusion 1-30 Units/kg/hr 80.8 kg Dosing weight (0.808-24.24 mL/hr, rounded to 0.81-24.24 mL/hr), intravenous, Continuous, Starting on Tue10/10/24 at 0000, 25,000 Units in 250 mL, Intensity type: Low, Starting Dose (units/kg/hr): 12, Loading Dose: 0, Anti-Xa < 0.1: Adjust dose (Units/kg/hr) by: 4, Anti-Xa < 0.1: Repeat anti-Xa: 6 hours, Anti-Xa 0.1-0.19: Adjust Dose (Units/kg/hr) by: 2, Anti-Xa 0.1-0.19: Repeat anti-Xa: 6 hours, Anti-Xa 0.2-0.5: Adjust Dose (Units/kg/hr) by: 0, Anti-Xa 0.2-0.5: Repeat anti-Xa: 6 hours. If two consecutive therapeutic result, re-check next AM., Anti-Xa 0.51-0.6: Adjust Dose (Units/kg/hr) by: -1, Anti-Xa 0.51-0.6: Repeat anti-Xa: 6 hours after dose change, Anti-Xa 0.61-0.9: Hold Infusion: Stop infusion for 1 hour, Anti-Xa 0.61-0.9: Adjust Dose (Units/kg/hr) by: -2, Anti-Xa 0.61-0.9: Repeat anti-Xa: 6 hours after Heparin resumed, Anti-Xa 0.91-1.5: Hold Infusion: Stop infusion for 2 hours, Anti-Xa 0.91-1.5: Adjust Dose (Units/kg/hr): -4, Anti-Xa 0.91-1.5: Repeat anti-Xa: 6 hours after Heparin resumed, Anti-Xa > 1.5: Hold Infusion: Stop infusion until anti-Xa < 1.2, Anti-Xa > 1.5: Adjust Dose (Units/kg/hr): -4, Anti-Xa > 1.5: Repeat anti-Xa: every 2 hours until anti-Xa less than 1.2 New Bag 10/10/2024 12:09 AM CDT 12 Units/kg/hr 9.7 mL/hr lidocaine 10 mg/mL (1 %) injection (Xylocaine) As needed, Starting on Charisse 10/11/24 at 1232, Intra-Op Given 10/11/2024 12:32 PM CDT 8 mL Abdominal Tissue lidocaine HCL 2 % topical jelly 1 Application (Glydo) 1 Application, urethral, As needed, mild pain or score 1-3 of 10, moderate pain or score 4-6 of 10, Starting on Tue10/10/24 at 0427, For 1 dose, Urinary System Administration: Surface anesthesia for pediatric urethra: 0.2 mL/kg (maximum 5 mL for females, maximum 15 mL for males) Surface anesthesia of male urethra: 300 mg (15 mL) instilled into urethra or until patient has feeling of tension; may administer another dose of not more than 300 mg (15 mL) for adequate anesthesia. Prior to sounding or cystoscopy, a total dose of 600 mg (30 mL) is usually required. Prior to catheterization, a smaller dose of 100 to 200 mg (5 to 10 mL) is usually sufficient. MAX 600 mg per 12-hour period. Surface anesthesia of female urethra: 60 to 100 mg (3 to 5 mL) instilled into urethra; if desired, additional jelly may be applied with a cotton swab. MAX 600 mg per 12-hour period. Given 10/10/2024 5:12 AM CDT 1 Application metoprolol succinate 24 hr tablet 25 mg (Toprol XL) 25 mg, oral, Daily, First dose on Tue10/10/24 at 0900, Do NOT crush or chew. Tablet may be split on score if needed. Given 10/12/2024 8:02 AM CDT 25 mg Given 10/11/2024 8:42 AM CDT 25 mg Given 10/10/2024 9:31 AM CDT 25 mg midazolam (PF) injection 0.5 mg (Versed) 0.5 mg, intravenous, Every 2 min PRN, sedation, RASS -1, Starting on Charisse 10/11/24 at 1215, For 3 hours, Intraprocedure (RAD), May repeat every 2 minutes for a maximum of 5 mg. Do not give if respiratory rate is less than 8 breaths/minute. Given 10/11/2024 12:23 PM CDT 0.5 mg midazolam (PF) injection 1 mg (Versed) 1 mg, intravenous, Every 2 min PRN, sedation, RASS 0, Starting on Charisse 10/11/24 at 1215, For 3 hours, Intraprocedure (RAD), May repeat every 2 minutes for a maximum of 5 mg. Do not give if respiratory rate is less than 8 breaths/minute. Given 10/11/2024 12:21 PM CDT 1 mg NaCl 0.9% infusion 1-999 mL/hr, intravenous, As needed, Between Consecutive Piggyback Medications, Starting on Tue10/11/24 at 0847, For 7 days, Infuse at the same rate as the piggyback until tubing clears or up to a volume of 20 mL. Select for IV medication administration when no maintenance IV available or when IV medications are not compatible with maintenance fluid. NaCl 0.9% infusion 1-999 mL/hr, intravenous, As needed, Post Medications (Hazardous/Low Fluid Volume), Starting on Tue10/11/24 at 0847, For 7 days, Infuse at the same rate as the medication until tubing cleared of medication, then discard. oxyCODONE IR tablet 2.5 mg (Roxicodone) 2.5 mg, oral, Once, On Tue10/10/24 at 0515, For 1 dose Given 10/10/2024 5:22 AM CDT 2.5 mg polyethylene glycol powder packet 17 g (Miralax) 17 g, oral, Daily PRN, constipation, Starting on Tue10/09/24 at 7, Ordered sequence of administration: polyethylene glycol, then bisacodyl until BM achieved. Avoid mixing with starch-based thickened liquids. Given 10/10/2024 10:28 PM CDT 17 g rosuvastatin tablet 20 mg (Crestor) 20 mg, oral, Daily at bedtime, First dose on Tue10/10/24 at 2100 Given 10/11/2024 8:07 PM CDT 20 mg Given 10/10/2024 8:50 PM CDT 20 mg sennosides-docusate sodium 8.6-50 mg per tablet 1 tablet (Senokot-S) 1 tablet, oral, 2 times daily, First dose on Tue10/09/24 at 2100, Do not give if patient has diarrhea. Given 10/12/2024 8:02 AM CDT 1 tablet Given 10/11/2024 8:07 PM CDT 1 tablet Given 10/11/2024 8:41 AM CDT 1 tablet sodium chloride 0.9 % injection 10 mL 10 mL, intravenous, As needed, line care, Peripheral Intravenous Catheter and Rapid Infusion Catheter, Starting on Charisse 10/11/24 at 0847, Prior to blood sampling, post blood transfusion or post blood sampling. sodium chloride 0.9 % injection 3 mL 3 mL, intravenous, As needed, line care, Peripheral Intravenous Catheter and Rapid Infusion Catheter, Starting on Charisse 10/11/24 at 0847, Prior to and following infusion and between multiple consecutive infusions. sodium chloride 0.9 % injection 3 mL 3 mL, intravenous, Every 24 hours scheduled, First dose on Tue10/12/24 at 0900, Peripheral Intravenous Catheter and Rapid Infusion Catheter: When no infusion to maintain patency. Given 10/12/2024 8 :03 AM CDT 3 mL Given During Downtime 10/11/2024 8:48 AM CDT 3 mL sulfamethoxazole-trimethoprim 800-160 mg per tablet 1 tablet (Bactrim DS) 1 tablet, oral, 2 times daily, First dose on Tue10/10/24 at 2100, For 2 days, Drug Monitoring Program: Pharmacist to adjust medication dosing based on indication and drug clearance factors., Indications: Lower UTI, catheterIndications:Lower UTI, catheter Given 10/11/2024 8:42 AM CDT 1 tablet Given 10/10/2024 8:50 PM CDT 1 tablet documented in this encounter Active and Recently Administered Medications Times are shown in CDT. Scheduled Medication Order 10/10/2024 10/11/2024 10/12/2024 acetaminophen tablet 1,000 mg (TylenoL) 1,000 mg, oral, 4 times daily, First dose on Tue10/09/24 at 2100, Not to exceed 4 grams of acetaminophen in 24 hours all sources 0312 (Given - Provider: Molly Massey R.N.)0932 (Given - Provider: Mariam Geiger R.N.)1208 (Given - Provider: Donita Solis R.Jamal.)1325 (MAR Hold - Provider: Transfer Provider, Automatic - Reason: Patient not available)1700 (Dose Auto Held - Provider: Transfer Provider, Automatic)1728 (MAR Unhold - Provider: Transfer Provider, Automatic)2120 (Given - Provider: Vivian Anderson.N.) 0842 (Given - Provider: Merna Jang R.N.)1318 (Given - Provider: Janie Osei R.N.)1808 (Given - Provider: Janie Osei R.N.)2324 (Given - Provider: Kerry Caicedo R.N.) 0802 (Given - Provider: Liat Sam R.N.)1223 (Given - Provider: Liat Sam R.N.) aspirin chewable tablet 324 mg (COMPLETED) 324 mg, oral, Once, On Tue10/10/24 at 1400, For 1 dose, Preprocedure (CV) 1332 (Given - Provider: Pema DuronNMak) aspirin DR tablet 81 mg 81 mg, oral, Daily, First dose on Tue10/11/24 at 1100, Swallow whole. Do NOT crush, chew, or split tablet. 1318 (Given - Provider: Janie Osei R.N.) 0802 (Given - Provider: Liat Sam R.N.) finasteride tablet 5 mg (Proscar) 5 mg, oral, Daily, First dose on Tue10/10/24 at 0900, See tube feeding guidelines for tube feeding administration instructions. 0932 (Given - Provider: Mariam Geiger R.N.)1325 (MAY Hold - Provider: Transfer Provider, Automatic - Reason: Patient not available)1728 (MAY Unhold - Provider: Transfer Provider, Automatic) 0846 (Given - Provider: Merna Jang R.N.) 0803 (Given - Provider: Liat Sam R.N.) metoprolol succinate 24 hr tablet 25 mg (Toprol XL) 25 mg, oral, Daily, First dose on Tue10/10/24 at 0900, Do NOT crush or chew. Tablet may be split on score if needed. 0931 (Given - Provider: Mariam Geiger R.N.)1325 (MAY Hold - Provider: Transfer Provider, Automatic - Reason: Patient not available)1728 (MAY Unhold - Provider: Transfer Provider, Automatic) 0842 (Given - Provider: Merna Jang R.N.) 0802 (Given - Provider: Liat Sam R.N.) oxyCODONE IR tablet 2.5 mg (Roxicodone) (COMPLETED) 2.5 mg, oral, Once, On Tue10/10/24 at 0515, For 1 dose 0522 (Given - Provider: Desiree Mckeon RMakN.) rosuvastatin tablet 20 mg (Crestor) 20 mg, oral, Daily at bedtime, First dose on Tue10/10/24 at 2100 1325 (MAY Hold - Provider: Transfer Provider, Automatic - Reason: Patient not available)172 (MAY Unhold - Provider: Transfer Provider, Automatic)2049 (Given - Provider: Donita Solis RTiffanie) 2006 (Given - Provider: Kerry Caicedo R.N.) sennosides-docusate sodium 8.6-50 mg per tablet 1 tablet (Senokot-S) 1 tablet, oral, 2 times daily, First dose on Tue10/09/24 at 2100, Do not give if patient has diarrhea. 0933 (Given - Provider: Mariam Geiger R.N.)1325 (MAY Hold - Provider: Transfer Provider, Automatic - Reason: Patient not available)1728 (MAY Unhold - Provider: Transfer Provider, Automatic)2049 (Given - Provider: Donita Solis RTiffanie) 0841 (Given - Provider: Merna Jang R.N.)2006 (Given - Provider: Kerry Caicedo RTiffanie) 0802 (Given - Provider: Liat Sam RMakNMak) sodium chloride 0.9 % injection 3 mL 3 mL, intravenous, Every 24 hours scheduled, First dose on Tue10/12/24 at 0900, Peripheral Intravenous Catheter and Rapid Infusion Catheter: When no infusion to maintain patency. 0848 (Given During Downtime - Provider: Merna Jang R.N.) 0803 (Given - Provider: Liat Sam R.N.) sulfamethoxazole-trimetho prim 800-160 mg per tablet 1 tablet (Bactrim DS) (CANCELED) 1 tablet, oral, 2 times daily, First dose on Tue10/10/24 at 2100, For 2 days, Drug Monitoring Program: Pharmacist to adjust medication dosing based on indication and drug clearance factors., Indications: Lower UTI, catheter 2049 (Given - Provider: Donita Solis R.N.) 0842 (Given - Provider: Merna Jang R.N.) Continuous Medication Order 10/10/2024 10/11/2024 10/12/2024 heparin (porcine) 100 Units/mL in NaCl 0.45% 250 mL infusion (CANCELED) 1-30 Units/kg/hr 80.8 kg Dosing weight (0.808-24.24 mL/hr, rounded to 0.81-24.24 mL/hr), intravenous, Continuous, Starting on Tue10/10/24 at 0000, 25,000 Units in 250 mL, Intensity type: Low, Starting Dose (units/kg/hr): 12, Loading Dose: 0, Anti-Xa < 0.1: Adjust dose (Units/kg/hr) by: 4, Anti-Xa < 0.1: Repeat anti-Xa: 6 hours, Anti-Xa 0.1-0.19: Adjust Dose (Units/kg/hr) by: 2, Anti-Xa 0.1-0.19: Repeat anti-Xa: 6 hours, Anti-Xa 0.2-0.5: Adjust Dose (Units/kg/hr) by: 0, Anti-Xa 0.2-0.5: Repeat anti-Xa: 6 hours. If two consecutive therapeutic result, re-check next AM., Anti-Xa 0.51-0.6: Adjust Dose (Units/kg/hr) by: -1, Anti-Xa 0.51-0.6: Repeat anti-Xa: 6 hours after dose change, Anti-Xa 0.61-0.9: Hold Infusion: Stop infusion for 1 hour, Anti-Xa 0.61-0.9: Adjust Dose (Units/kg/hr) by: -2, Anti-Xa 0.61-0.9: Repeat anti-Xa: 6 hours after Heparin resumed, Anti-Xa 0.91-1.5: Hold Infusion: Stop infusion for 2 hours, Anti-Xa 0.91-1.5: Adjust Dose (Units/kg/hr): -4, Anti-Xa 0.91-1.5: Repeat anti-Xa: 6 hours after Heparin resumed, Anti-Xa > 1.5: Hold Infusion: Stop infusion until anti-Xa < 1.2, Anti-Xa > 1.5: Adjust Dose (Units/kg/hr): -4, Anti-Xa > 1.5: Repeat anti-Xa: every 2 hours until anti-Xa less than 1.2 0009 (New Bag - Provider: Desiree Mckeon R.N.)0350 (Stopped - Provider: Desiree Mckeon R.N.) PRN Medication Order 10/10/2024 10/11/2024 10/12/2024 D5W infusion 1-999 mL/hr, intravenous, As needed, Medications Incompatible with 0.9% NaCL, Starting on Charisse 10/11/24 at 0847, Infuse at the same rate as the piggyback until tubing clears or up to a volume of 20 mL pre and post infusion for medications incompatible with 0.9% NaCL. Use 50 mL bag then discard. fentaNYL injection 25 mcg (Sublimaze) (CANCELED) 25 mcg, intravenous, Every 2 min PRN, sedation, Administer over 1 minute immediately prior to the procedure. May repeat every 2 minutes to a maximum of 200 mcg, until pain score of 3 or less, or until the patient meets the pain comfort goal, or RASS 0 to -2. Do not give if respiratory rate is less than 8 breaths/minute., Starting on Tue10/10/24 at 1524, Intraprocedure (CV), Subsequent doses 1527 (Given - Provider: Jannette Otoole R.N.)1531 (Given - Provider: Jannette Otoole R.N.) fentaNYL injection 25 mcg (Sublimaze) (CANCELED) 25 mcg, intravenous, Every 2 min PRN, sedation, Administer over 1 minute immediately prior to the procedure. May repeat every 2 minutes to a maximum of 200 mcg, until pain score of 3 or less, or until the patient meets the pain comfort goal, or RASS 0 to -2. Do not give if respiratory rate is less than 8 breaths/minute., Starting on Charisse 10/11/24 at 1215, Intraprocedure (RAD), Subsequent doses 1221 (Given - Provider: Herlinda Castle R.N.)1223 (Given - Provider: Herlinda Castle R.N.) iohexoL 350 mg iodine/mL solution (Omnipaque) (CANCELED) Code/trauma/sedation medication, Starting on Tue10/10/24 at 1613, Intraprocedure (CV) 1613 (Given - Provider: Grey Gomez M.D.) lidocaine 10 mg/mL (1 %) injection (Xylocaine) (CANCELED) Code/trauma/sedation medication, Starting on Tue10/10/24 at 1545, Intraprocedure (CV) 1545 (Given - Provider: Grey Gomez M.D.) lidocaine 10 mg/mL (1 %) injection (Xylocaine) (COMPLETED) As needed, Starting on Charisse 10/11/24 at 1232, Intra-Op 1232 (Given - Provider: Ashlyn Mendenhall M.D.) lidocaine HCL 2 % topical jelly 1 Application (Glydo) (COMPLETED) 1 Application, urethral, As needed, mild pain or score 1-3 of 10, moderate pain or score 4-6 of 10, Starting on Tue10/10/24 at 0427, For 1 dose, Urinary System Administration: Surface anesthesia for pediatric urethra: 0.2 mL/kg (maximum 5 mL for females, maximum 15 mL for males) Surface anesthesia of male urethra: 300 mg (15 mL) instilled into urethra or until patient has feeling of tension; may administer another dose of not more than 300 mg (15 mL) for adequate anesthesia. Prior to sounding or cystoscopy, a total dose of 600 mg (30 mL) is usually required. Prior to catheterization, a smaller dose of 100 to 200 mg (5 to 10 mL) is usually sufficient. MAX 600 mg per 12-hour period. Surface anesthesia of female urethra: 60 to 100 mg (3 to 5 mL) instilled into urethra; if desired, additional jelly may be applied with a cotton swab. MAX 600 mg per 12-hour period. 0512 (Given - Provider: Desiree Mckeon R.N.) midazolam (PF) injection 0.5 mg (Versed) (CANCELED) 0.5 mg, intravenous, Every 2 min PRN, sedation, RASS -1, Starting on Tue10/10/24 at 1524, Intraprocedure (CV), May repeat every 2 minutes for a maximum of 5 mg. Do not give if respiratory rate is less than 8 breaths/minute. 1527 (Given - Provider: Jannette Otoole R.N.)1531 (Given - Provider: Jannette Otoole R.N.) midazolam (PF) injection 0.5 mg (Versed) (CANCELED) 0.5 mg, intravenous, Every 2 min PRN, sedation, RASS -1, Starting on Charisse 10/11/24 at 1215, For 3 hours, Intraprocedure (RAD), May repeat every 2 minutes for a maximum of 5 mg. Do not give if respiratory rate is less than 8 breaths/minute. 1223 (Given - Provider: Herlinda Castle R.N.) midazolam (PF) injection 1 mg (Versed) (CANCELED) 1 mg, intravenous, Every 2 min PRN, sedation, RASS 0, Starting on Charisse 10/11/24 at 1215, For 3 hours, Intraprocedure (RAD), May repeat every 2 minutes for a maximum of 5 mg. Do not give if respiratory rate is less than 8 breaths/minute. 1221 (Given - Provider: Herlinda Castle R.N.) NaCl 0.9% infusion 1-999 mL/hr, intravenous, As needed, Between Consecutive Piggyback Medications, Starting on Charisse 10/11/24 at 0847, For 7 days, Infuse at the same rate as the piggyback until tubing clears or up to a volume of 20 mL. Select for IV medication administration when no maintenance IV available or when IV medications are not compatible with maintenance fluid. NaCl 0.9% infusion 1-999 mL/hr, intravenous, As needed, Post Medications (Hazardous/Low Fluid Volume), Starting on Charisse 10/11/24 at 0847, For 7 days, Infuse at the same rate as the medication until tubing cleared of medication, then discard. nitroglycerin SL tablet 0.4 mg (Nitrostat) 0.4 mg, sublingual, Every 5 min PRN, chest pain, Max 3 doses, Starting on Tue10/09/24 at 2034, May administer up to 3 doses per episode. Dissolve under the tongue. Do NOT crush, chew, split or swallow tablet. 1325 (MAR Hold - Provider: Transfer Provider, Automatic - Reason: Patient not available)1728 (MAR Unhold - Provider: Transfer Provider, Automatic) polyethylene glycol powder packet 17 g (Miralax) 17 g, oral, Daily PRN, constipation, Starting on Tue10/09/24 at 2026, Ordered sequence of administration: polyethylene glycol, then bisacodyl until BM achieved. Avoid mixing with starch-based thickened liquids. 1325 ([facility] Hold - Provider: Transfer Provider, Automatic - Reason: Patient not available)1728 ([facility] Unhold - Provider: Transfer Provider, Automatic)2228 (Given - Provider: Donita Solis R.N.) sodium chloride 0.9 % injection 10 mL 10 mL, intravenous, As needed, line care, Peripheral Intravenous Catheter and Rapid Infusion Catheter, Starting on Charisse 10/11/24 at 0847, Prior to blood sampling, post blood transfusion or post blood sampling. sodium chloride 0.9 % injection 3 mL 3 mL, intravenous, As needed, line care, Peripheral Intravenous Catheter and Rapid Infusion Catheter, Starting on Charisse 10/11/24 at 0847, Prior to and following infusion and between multiple consecutive infusions. documented in this encounter Care Teams [facility] Relationship Specialty Start Date End Date Elsewhere, Pcp PCP - General Internal Medicine 10/09/24 documented as of this encounter
--- OUTSIDE RECORDS SUMMARY | 2024-10-10 13:26 | XMS_ITS | Encounter Summary ---
Author Organization [facility] Address [address] [place] [address] Care Team Providers Care Utility Clerk Name Role Phone Elsewhere, Pcp Primary Care Provider Unavailabl e Reason for Visit * Reason Comments Chest Pain Encounter Details Date Type Department Care Team (Late st Contact Info) Description 10/10/2024 1:26 PM CDT - 10/10/2024 2:41 PM CDT Surgery Division of Cardiovascular Diseases in [place], [place] [address] [place] [phone] Grey Gomez M.D. [address] [place] [phone] CORONARY ANGIOGRAPHY Social History Tobacco Use Types Packs/Day Years Used Date Smoking Tobacco: Former Smokeless Tobacco: Never Alcohol Use Standard Drinks/Week Comments Yes 3 (1 standard drink = 0.6 oz pur e alcohol) [facility] Utilities Answer Date Recorded In the past 12 months has [employer], gas, oil, or water [employer] threatened to shut off services in your [...] your living situation today? I have a [facility] place to live 10/09/2024 Education Answer Date Recorded What is the highest level of school you have completed or the highest degree you have received? 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 Gender Identity Male 09/04/2024 9:32 AM CDT Sexual Orientation Straight 09/04/2024 9: 32 AM CDT documented as of this encounter Last Filed Vital Signs Vital Sign Reading Time Taken Comments Blood Pressure 138/72 10/10/2024 2:06 PM CDT Pulse 49 10/10/2024 1:30 PM CDT Temperature 36.6 C (97.9 F) 10/10/2024 12:00 PM CDT Respiratory Rate 12 10/10/2024 1:21 PM CDT Oxygen Saturation 94% 10/10/2024 1:30 PM CDT Inhaled Oxygen Concentration - - Weight 77.7 kg (171 lb 4.8 oz) 10/10/2024 6:40 A M CDT Height 172.7 cm (5' 7.99) 10/10/2024 9:06 AM CD T Body Mass Index 26.12 10/10/2024 9:06 AM CDT documented in this encounter Discharge Summaries * Clari Daniel M.D. - 10/12/2024 2:46 PM CDT DISCHARGE SUMMARY BRIEF OVERVIEW Hospital: [facility] Discharge Provider: Iva Ascencio M.D. Primary Team: [facility] CARD 2 Primary Care Providers: Elsewhere, Pcp [...] CORONARY ANGIOGRAPHY Grey Gomez M.D.Sherafati, Alborz, M.D. [facility] ROMB CCL DISCHARGE DISPOSITION Home or Self Care [1] ACTIVE ISSUES REQUIRING FOLLOW UP Discharge Notes from your Provider Team You were discharged from the [facility] CVD 2 Service. Please identify this service [...] prior to your follow-up appointments, contact the [facility] Chain Maker Hand at [phone] and ask to speak with the Cardiology 2 Service OUTPATIENT FOLLOW UP Scheduled Appointments 10/16/2024 9:15 AM [facility] URO INTAKE VISIT Admitting/Central Scheduling 10/17/2024 8:30 [...] for ACS, and was admitted to the [facility] CARD 2 service for further management and [...] Progress Notes * Adry Gutierres, Pharm.D., R.Ph., [facility] - 10/12/2024 7:45 AM CDT Pharmacist Progress [...] ongoing Plan discussed with RST CARD 2 Director Of Managed Services, Dr. Marroquin, who was present during coats portions of the evaluation today. Please page the [employer] 2 service pager at [phone] with any questions. Clari Dainel PGY 1 Internal Medicine Personal Pager: [phone] 10/11/24 * Spencer Marroquin M.D. - 10/11/2024 [...] at the ostium of the ramus. The CARDIO TECH of the right coronary artery receives collaterals [...] 10/11/2024 2:07 PM CDT * Michaelle Nicole RCollins. - 10/11/2024 9:58 AM CDT SUBJECTIVE Attempted to see patient to address discharge planning. OBJECTIVE Patient not seen at this time. ASSESSMENT Unable to complete assessment as patient was not available when I attempted to meet with him. He was on his cell phone, asked Service Developer to return later. PLAN Case Management will attempt to see patient at a later time, when available. * Adry Gutierres Pharm.D., R.Ph., [facility] - 10/11/2024 7:37 AM CDT Pharmacist Progress [...] MD PGY-3 Urology Urology chief service pager: [phone] from [phone] Emergency call pager: [phone] from [phone] This was discussed with chief urology resident, [...] ongoing Plan discussed with RST CARD 2 Director Of Managed Services, Dr. Marroquin, who was present during coats portions of the evaluation today. Please page the RST CARD 2 service pager at [phone] with any questions. Clari Daniel PGY 1 Internal Medicine Personal Pager: [phone] 10/10/24 * Michaelle Nicole R.N. - 10/10/2024 10:46 AM CDT SUBJECTIVE Attempted to see patient to address discharge planning. OBJECTIVE Patient not seen at this time. ASSESSMENT Unable to complete assessment as patient was not able to participate in assessment at this time. PLAN Case Management will attempt to see patient at a later time, when available. * Adry Gutierres Pharm.D., R.Ph., [facility] - 10/10/2024 7:09 AM CDT Pharmacist [...] BCCP * Alberto De Paz Pharm.D., R.Ph., [facility]PS - 10/09/2024 9:57 PM CDT Images from [...] Spencer Marroquin M.D. CT CT Job ID: [id number] * Clarissa Calle Sr., M.D. - 10/09/2024 [...] for the past couple of months. The driver recruiter recommended that he first fix any anginal [...] he no longer needed to be on watcher automat long goods anticoagulation. Patient has a history of hematuria [...] Hernandez Samayoa was being seen at the [facility] cardiology out patient clinic for pre-operative consultation on his upcoming TURBT with bilateral stent placement planed forJuly 2024. During the visit he mentioned to the driver recruiter's that he had been having on and [...] on his description of his symptoms a driver recruiter at the outpatient clinic were concerned for unstable angina and recommended he go to [facility] EDfor workup and possible urgent coronary Angiography. ED course: Upon arrival to [facility] ER Mr. Ng denied any chest [...] stenosis of small OM1 and distal RCA CARDIO TECH. Social History: Former Smoker, quit 25 - [...] & Screen Expiration 10/12/2024 23:59 Testing Location [place] CBC without Differential Collection Time: 10/09/24 11:30 [...] patient. However during his visit to the [facility] cardiology outpatient clinic regarding his upcoming [...] Clarissa Calle MD Internal Medicine, PGY-1 Pager: [phone] * Mario Musa M.D. - 10/09/2024 7:32 PM CDT [facility] 2 SENIOR DIGITAL MEDIA PRODUCER SUPERVISORY ADMISSION NOTE SUBJECTIVE Mr. Samayoa is a 78 y.o. year old male who initially presented in the outpatient setting for a preanesthetic medical evaluation for a surgical evaluation for a bladder mass but was describing worsening chest discomfort concerning for ACS, and is now admitted to the [facility] 2 service for further management and cares. [...] and diffuse RCA disease with evidence of CARDIO TECH (Outside CT chest/coronary angiogram 01/28/2020) #. Chronic [...] ACS, and is now admitted to the [facility] CARD 2 service for further management and [...] formally discussed with the RST CARD 2 Director Of Managed Services, Spencer Arenas M.D., within 24 hours. Please page the RST CARD 2 service pager with any questions. [...] 78 y.o. 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 Handouts provided: Bathroom Safety Equipment [id number], Preventing Falls LA5861-67, Home Safety Suggestions [id number], Adaptive Equipment Catalog/List of Vendors Team Communication: [...] with medication set up/administration, Assistance with financial planning assistant, Assistance with transportation, Assistance with shopping, Assistance [...] with higher complexity tasks such as financial planning assistant, shopping, meal preparation, and driving. Due to [...] min Total Treatment Time (min): 49 min MARYLNI Singh [1] Past Medical History: Diagnosis Date Apnea Sleep Obstructive Blood Transfusion No Diagnosis Malignant Primary Neoplasm (Unknown Site) Unspecified (HCC) Transient Ischemic Attack pt thinks he did at one point [2] Past Surgical History: Procedure Laterality Date BLADDER SURGERY 1979 CATH ANGIOGRAM N/A 10/10/2024 Procedure: CORONARY ANGIOGRAPHY; Surgeon: Grey Gomez M.D.; Location: [facility] CCL COLONOSCOPY pt thinks hes had 2 TONSILLECTOMY WISDOM TOOTH EXTRACTION Cosigned by Aye Del Rosario, O.TMak, O.T.DMak at 10/12/2024 4:22 PM CDT Associated attestation - Aye Del Rosario O.T., OTommy - 10/12/2024 4:22 PM CDT This therapist has reviewed all documentation and supervised today's session. This therapist agreeswith the plan of care developed in collaboration with the patient. * Rico Shelton P.T., SuzettePAranza. - 10/12/2024 9:28 AM CDT Physical Therapy Inpatient Evaluation/Treatment SUBJECTIVE Patient's Name: Hernandez Samayoa Referring/Attending Provider: Iva Ascencio M.D. Reason for Referral: Physical Therapy Evaluate and Treat Onset Date: 10/09/2024 Pertinent Medical / Surgical History: Medical History[1] Surgical History[2] History of Present Illness: Hernandez Samayoa is a 78 y.o. 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 - 10/11/2024 1:59 PM CDTAssociated Order(s): IP CONSULT TO CARE MANAGEMENT; IP CONSULT TO CARE MANAGEMENT Discharge Planning Assessment SUBJECTIVE Assessment Information Referral Data Referral Source: Early Screen for Discharge Planning Referral Name: ESDP score 14 Previous Assessment: No Casting Supervisor Services Used: No Primary Language: Hebrew Casting Supervisor Services Used: No Person(s) Present During Interview: [...] Primary Care Physician Family Medicine 10/09/24 Address: [address] [facility] [phone] Additional Resources: Additional Services: NA Anticipated Needs Functional Status: None Assistive Devices: None Anticipated Modifications to the Patient's Home: None Transportation Needs: Support from family Does the patient need discharge transport arranged?: No Phone Number for Ride/Caregiver: Jose [phone] Anticipated Discharge Destination: Home or Self Care Referrals Initiated: None provider network mgr provided Care Management Brochure ([id number]), information regarding the dismissal process, and the Senior Linkage Line ([place] Board on Aging) handout. ASSESSMENT / PLAN ASSESSMENT: The provider network mgr met with Hernandez Samayoa to discuss his current hospitalization and home goingneeds. The patient was accompanied by girlfriend, Roderick. The patient was a reliable historian. The role of provider network mgr was reviewed. The patient reviewed his prior [...] Patient is requesting information regarding private pay [facility]. Patient would like PT/OT assessment. Service team [...] ready. Support will be provided by self. provider network mgr recommendations include: discussing needed assistance with family, [...] course) Transportation upon dismissal will be Jose. provider network mgr encouraged the patient to reach out with [...] this time Estimated Needs: Total Calorie Needs: 1077-0652 calories/day Method to Estimate Energy Needs: kcal/kg [...] about patient's nutritional care please contact pager [phone] on weekdays 07:30-16:00 or [phone] on weekends/holidays ([facility]) [phone]. [1] Past Medical History: Diagnosis Date Apnea [...] in this encounter Nursing Notes * Liat Sam, RMakN. - 10/12/2024 3:58 PM CDT Shift Goals: [...] tele monitory discontinued. Patient is going home [facility] and will be transported home by family. Patient transferred to front entrance by wheelchair with transportstaff and family. Problem: Risk for Compromised Skin Integrity-Other Cisco Administrator(s) Goal: Risk for Compromised Skin Integrity-Other Cisco Administrator(s) 10/12/2024 155 by Liat Sam, R.N. Outcome: Adequate for [...] ADULT Goal: Absence of infection during hospitalization 10/12/2024 1558 by Liat Sam, R.N. Outcome: Adequate for Discharge Problem: SKIN/TISSUE INTEGRITY Goal: Skin/Tissue integrity maintained or improved 10/12/2024 1558 by Liat Sam, R.N. Outcome: Adequate for Discharge Goal: Oral and Nasal mucous membranes remain intact 10/12/20241557 by Liat Sam, R.N. Outcome: Adequate for Discharge Problem: SAFETY ADULT Goal: Maintain a safe environment 10/12/20241557 by Liat Sam, R.N. Outcome: Adequate for Discharge Problem: DISCHARGE PLANNING Goal: Patient discharge needs identified 10/12/20241557 by Liat Sam, R.N. Outcome: Adequate for Discharge Problem: Risk for Compromised Skin Integrity-Gordon Sensory Perception Score 1, 2, or 3 Goal: Manage sensory perception deficits to maintain and/or improve skin integrity. 10/12/20241557 by Liat Sam R.N. Outcome: Adequate for Discharge Problem: Risk for Compromised Skin Integrity-Gordon Activity Score 3 Goal: Achieve optimal activity to maintain or improve skin integrity. 10/12/2024 155 by Liat Sam R.N. Outcome: Adequate for Discharge Problem: SAFETY ADULT - RISK FOR FALL AND OR FALL INJURY Goal: Patient remains free from fall/fall injury 10/12/2024 155 by Liat Sam R.N. Outcome: Adequate for Discharge Problem: CARDIOVASCULAR - ADULT Goal: Maintains optimal cardiac output and hemodynamic stability 10/12/20241557 by Liat Sam R.N. Outcome: Adequate for Discharge Problem: METABOLIC/FLUID AND ELECTROLYTES - ADULT Goal: Hemodynamic stability and optimal renal function maintained 10/12/20241557 by Liat Sam R.N. Outcome: Adequate for Discharge * Janie [...] stability Outcome: Progressing * Elizabeth Kennedy APRN, C.N.PMak, M.S.N. - 10/11/2024 2:51 PM CDT [facility] Primary Service: RST CARD 2 Local Oncologist: No care steam station supervisor to display [place] Medical Oncologist(s): No care steam station supervisor to display Reason(s) for consult: New/suspected cancer [...] any further questions or concerns arise at [phone](service pager), M-F 7:00 a.m. to 7:00 p.m, [facility] Director Of Managed Services on Consult service. Elizabeth Kennedy APRN, Shayna.N.PMak, M.S.N. * Sakshi Ochoa R.N. - 10/11/2024 4:36 AM CDT Problem: Risk for Compromised Skin Integrity-Other Cisco Administrator(s) Goal: Risk for Compromised Skin Integrity-Other Cisco Administrator(s) Note: RN assess for pain and adjacent [...] BMI 26.12 kg/m?? * Janie Pal R.N., [facility]- - 10/10/2024 8:30 AM CDT Proactive [...] screening, we have the following recommendations: [] instrument technician apprentice visit [x] Discuss with primary team to [...] education/support-primary team to place order [] Recommend Supervisor Safety Deposit Services consultation- primary nursing to place order [] Recommend social work/substance use consultation -primary team to place order [] Recommend outpatient psychiatric follow-up - primary team to place psychiatric consult order to coordinate [] No acute psychiatric intervention needed; please reach out if questions or concerns. [] Other [place] [phone] with questions. Janie Pal R.N., [facility] 10/10/2024 * Desiree Mckeon RMakN. - 10/10/2024 4:40 AM CDT Problem: PAIN [...] in this encounter ED Notes * Zuri Harvey P.A.-C., M.S. - 10/09/2024 5:17 PM CDT SUBJECTIVE [...] patient was recommended to present to the [facility] ED to expedite hospital admission for urgent PCI. He denies any current chest pain here in the ED. He is currently anticoagulated on Eliquis. He denies any fever, cough, hemoptysis, increased edema, or shortness of breath. There are no other complaints at this time. History provided by: Patient and medical records tactical deception plans officer needed/used: no REVIEW OF SYSTEMS Reason unable [...] presence, andit is both accurate and complete. Candice, Zuri Nieves P.A.-C., M.S. 10/09/242024 * Yumi Skinner R.N. [...] for ACS, and was admitted to the [facility] CARD 2 service for further management and [...] CDT Clinical Support Department of Oncology in [place], [place] [address] [place] [phone] Polo Dwyer M.D. [address] [place] [phone] China Parikh M.S.W., L.I.C.S.W. [address] [place] [phone] 11/12/2024 2:15 PM CDT Office Visit Department of Cardiovascular Medicine in [place], [place] [address] [place] [phone] Elisa Alva M.D. [address] [place] [phone] documented as of this encounter Procedures Procedure [...] Renal Function Panel (10/12/2024 1:08 PM CDT) Potassium, S 5.0 3.6 - 5.2 mmol/L [...] M.D. LAB BLOOD ADD-ON Final Res ult [facility] [address] [place] [address], [place] DTL [facility] [address] [place] [address] * (ABNORMAL) CBC without Differential (10/12/2024 1:08 [...] M.D. LAB BLOOD ADD-ON Final Res ult [facility] [address] [place] [address], [facility] [address] [place] [address] * CT Lymph Node Biopsy (10/11/2024 12:52 [...] series 302, image 166. A total of [id number] cores were obtained from the lymph node [...] series 302, image 166. A total of [id number] cores were obtained from the lymph node [...] features. Immunohistochemic al stains were performed at [facility] (block A1). 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 Digital imaging was used in the diagnostic assessment of this case. (A) 10/15/2024 12:58 PM CDT DTL Tissue (Pelvis, Left) 10/11/2024 11:32 AM CDT us Mila Burgess M.D. LAB SURG PATH ORDERABLES F inal Result [facility] [address] [place] [address], [facility] DTL [address] [facility] [address] [place] [address] * (ABNORMAL) Renal Function Panel (10/11/2024 8:38 [...] M.D. LAB BLOOD ADD-ON Final Res ult [facility] [address] [place] [address], [facility] [address] [place] [address] * (ABNORMAL) CBC without Differential (10/11/2024 8:38 [...] M.D. LAB BLOOD ADD-ON Final Res ult [facility] [address] [place] [address], [facility] DTL [facility] [address] [place] [address] * CORONARY ANGIOGRAPHY (10/10/2024 4:18 PM CDT) Anatomical Region Laterality Modality X-Ray Angiograph y 10/10/2024 3:43 PM CDT Narrative 10/10/2024 4:58 PM CDT For the complete report, see the Order-Level Documents. PROCEDURE TYPES 1. CORONARY ANGIOGRAPHY FINAL DIAGNOSIS 1. Severe coronary artery atherosclerosis 2. CARDIO TECH (Chronic Total Occlusion) 3. Coronary artery collateral [...] disease as well. There is an RCA CARDIO TECH with good left to right collaterals. Discussed [...] left anterior descending artery and second septal oracle architect. The right posterolateral segment is 99% obstructed [...] DIAGNOSIS 1. Severe coronary artery atherosclerosis 2. CARDIO TECH (Chronic Total Occlusion) 3. Coronary artery collateral [...] LCx diseaseas well. There is an RCA CARDIO TECH with good left to right collaterals.Discussed with [...] distal left anterior descendingartery and second septal oracle architect. The right posterolateral segment is 99% obstructed [...] URINE ORDERABLES Final Resu Performing Organization Address [facility] Co de Phone Number [facility] [address] [place] [address], [facility] DTL [facility] [address] [place] [address] * (ABNORMAL) Dipstick, Urine (10/10/2024 5:41 AM [...] URINE ORDERABLES Final Resu Performing Organization Address City/[facility]/ZIP Co de Phone Number [facility] [address] [place] [address], [facility] DTL [facility] [address] [place] [address] * pH, Urine (10/10/2024 5:41 AM CDT) pH, U 5.8 4.5 - 8.0 10/10/2024 6:1 9 AM CDT DTL Urine 10/10/2024 5:41 AM CDT 10/10/2024 5:58 AM CDT Mario Musa M.D. LAB URINE ORDERABLES Final [facility] Performing Organization Address City/[facility]/ZIP Co de Phone Number [facility] [address] [place] [address] * Osmolality, Urine (10/10/2024 5:41 AM CDT) Pathologist [facility] Osmolality, U 215 150 - 1150 mOsm/kg 10/10/2024 6:19 AM CDT DTL Urine 10/10/2024 5:41 AM CDT 10/10/2024 5:58 AM CDT Mario Musa M.D. LAB URINE ORDERABLES Final [facility] Performing Organization Address [facility] Co de Phone Number [facility] [address] [place] [address], [facility] [address] [place] [address] * (ABNORMAL) Urinalysis, with Microscopic: Urine, Catheter [...] URINE ORDERABLES Final Result Performing Organization Address City/[facility]/ZIP Co de Phone Number [facility] [address] [place] [address], [facility] DTL [facility] [address] [place] [address] * ECG 12 Lead (10/10/2024 4:13 AM CDT) Ventricular Rate ECG/Min 58 BPM MUSE VA Interval 168 ms MUSE QRSD Interval 76 ms MUSE QT Interval 418 ms MUSE QTC Interval 410 ms MUSE P Malden 79 degrees MUSE R [place] 24 degrees MUSE T Wave [place] 17 degrees MUSE 10/10/2024 4:13 AM CDT [...] and management can be found on the [employer] site. Link [email or web address].[email or web address]/[email or web address]/clinical-answers/[email or web address]/[email or web address] Procedure Note Judy Ibrahim M.D. - 10/10/2024 [...] thrombosis and management can be found on the[employer] site. [email or web address]/clinical-answers/[email or web address]/cpm -2049 1725 IMPRESSION: 1. Negative for acute [...] Renal Function Panel (10/09/2024 11:30 PM CDT) [facility] Potassium, S 4.5 3.6 - 5.2 mmol/L [...] 11:30 PM CDT 10/10/2024 12:03 AM CDT Mila Burgess M.D. LAB BLOOD ADD-ON Final Res ult Performing Organization Address [facility] [place]/ZIP Co de Phone Number [facility] [address] [facility] [address] [place] [address] * (ABNORMAL) Troponin T, 5th Generation (10/09/2024 11:30 PM CDT) Troponin T, 5th gen 31(H) <=15 ng/L 10/09/2024 11:53 PM CDT [facility] Blood (Blood, Venous) 10/09/2024 11:30 PM CDT 10/09/2024 11:37 PM CDT Mila Burgess M.D. LAB BLOOD ADD-ON Final Res ult Performing Organization Address [facility] Co de Phone Number [facility] [address] [place] [address], [facility] [place] [address] * (ABNORMAL) CBC without Differential (10/09/2024 11:30 [...] ADD-ON Final Res ult Performing Organization Address [facility] Co de Phone Number [facility] [address] DTL [facility] [address] [place] [address] * Type and Screen (with Reflex Antibody [...] ORDERA BLES Final Result Performing Organization Address [facility]/ZIP Co de Phone Number [facility] [address] [place] [address], [facility] STRM [facility] [address] [place] [address] * ECG 12 Lead (10/09/2024 10:00 PM CDT) Ventricular Rate ECG/Min 58 BPM MUSE VA Interval 172 ms MUSE QRSD Interval 80 ms MUSE QT Interval 412 ms MUSE QTC Interval 404 ms MUSE P Malden 41 degrees MUSE R [place] 38 degrees MUSE T Wave [place] 33 degrees MUSE 10/09/2024 10:0 0 PM [...] Marroquin M.D. ECG ORDERABLES Final Resu lt MUSE NA * ECG 12 Lead (10/09/2024 8:57 PM CDT) Ventricular Rate ECG/Min 63 BPM MUSE VA Interval 166 ms MUSE QRSD Interval 76 ms MUSE QT Interval 398 ms MUSE QTC Interval 407 ms MUSE P Malden 24 degrees MUSE R [place] 7 degrees MUSE T Wave [place] 0 degrees MUSE 10/09/2024 8:57 PM CDT [...] TROPONIN Fi nal Result Performing Organization Address [facility] Co de Phone Number [facility] [address] [place] [address], [facility] [address] [place] [address] * DX Chest AP or PA and [...] Partial Thromboplastin Time) (10/09/2024 5:25 PM CDT) Pathologist [facility] Activated Partial Thrombopl Time, P 28 25 - 37 sec 10/09/2024 5:41 PM CDT [facility] Blood (Blood, Venous) 10/09/2024 5:25 PM CDT 10/09/2024 5:31 PM CDT Zuri Harvey P.A.-C., M.S. LAB BLOOD ADD-ON Gabriella l Result [facility] [address] [place] [address], [facility] [address] [place] [address] * Prothrombin Time (PT) (10/09/2024 5:25 PM CDT) Pathologist [facility] Prothrombin Time, P 12.4 9.4 - 12.5 sec 10/09/2024 5:38 PM CDT [facility] 0.9 - 1.1 10/09/2024 5:38 PM CDT [facility] Comment: ----ADDITIONAL INFORMATION---- Standard intensity warfarin therapeutic range: 2.0 to 3.0 High intensity warfarin therapeutic range: 2.5 to 3.5 Blood (Blood, Venous) 10/09/2024 5:25 PM CDT 10/09/2024 5:31 PM CDT us Zuri Harvey P.A.-C., M.S. LAB BLOOD ADD-ON Gabriella l Result [facility] [address] [place] [address] * (ABNORMAL) Troponin T, Baseline with 2 Hour/6 Hour Reflex Biomarker Panel (10/09/2024 5:25 PM CDT) Pathologist [facility] Troponin T, Baseline, 5th gen 33(H) <=15 ng/L 10/09/2024 6:22 PM CDT [facility] Blood (Blood, Venous) 10/09/2024 5:25 PM CDT 10/09/2024 5:31 PM CDT Zuri Harvey P.A.-C., M.S. LAB BLOOD TROPONIN Fi nal Result Performing Organization Address [facility] Co de Phone Number [facility] [address] [place] [address] * (ABNORMAL) Basic Metabolic Panel (10/09/2024 5:25 [...] M.S. LAB BLOOD ADD-ON Gabriella l Result [facility] [address] [place] [address], [facility] [address] [place] [address] * (ABNORMAL) CBC with Differential, Blood (10/09/2024 [...] M.S. LAB BLOOD ADD-ON Gabriella l Result [facility] [address] [place] [address], [facility] STMA [facility] [address] [place] [address] [facility] [address] [place] [address] * ECG 12 Lead (10/09/2024 5:12 PM CDT) [facility] Signature Ventricular Rate ECG/Min 63 BPM MUSE VA Interval 170 ms MUSE QRSD Interval 74 ms MUSE QT Interval 392 ms MUSE QTC Interval 401 ms MUSE P Malden 8 degrees MUSE R Malden 34 degrees MUSE T Wave [place] 34 degrees MUSE 10/09/2024 5:12 PM CDT [...] was found Reviewed by JIM Butts Zuri Nieves Candice Fry, M.S. ECG ORDERABLES Final Result MUSE NA [...] 10/11/2024 11:24 PM CDT 1,[address] tablet 81 mg 81 [...] Tue10/10/24 at 1524, Intraprocedure (CV), Subsequent doses Given 10/10/2024 3:31 PM CDT 25 mcg Given 10/10/2024 3:27 PM CDT 25 mcg finasteride tablet 5 mg (Proscar) 5 mg, oral, Daily, First dose on Tue10/10/24 at 0900, See tube feeding guidelines for tube feeding administration instructions. Given 10/12/2024 8:03 AM CDT 5 mg Given 10/11/2024 8:46 AM CDT 5 mg Given 10/10/2024 9:32 AM CDT 5 mg iohexoL 350 mg iodine/mL solution (Omnipaque) Code/trauma/sedation medication, Starting on Tue10/10/24 at 1613, Intraprocedure (CV) Given 10/10/2024 4:13 PM CDT 60 mL lidocaine 10 mg/mL (1 %) injection (Xylocaine) Code/trauma/sedation medication, Starting on Tue10/10/24 at 1545, Intraprocedure (CV) Given 10/10/2024 3:45 PM CDT 10 mL Right Groin metoprolol succinate 24 hr tablet 25 mg [...] rate is less than 8 breaths/minute. Given 10/10/2024 3:31 PM CDT 0.5 mg Given 10/10/2024 3:27 PM CDT 0.5 mg NaCl 0.9% infusion 1-999 mL/hr, intravenous, As needed, Between Consecutive Piggyback Medications, Starting on Charisse 25 at 0847, For 7 days, Infuse at [...] until tubing cleared of medication, then discard. polyethylene glycol powder packet 17 g (Miralax) [...] Downtime 10/11/2024 8:48 AM CDT 3 mL documented in this encounter Active and Recently Administered Medications Times are shown in CDT. Scheduled Medication Order 10/10/2024 10/11/2024 10/12/2024 acetaminophen tablet 1,000 mg (TylenoL) 1,000 mg, oral, 4 times daily, First dose on Tue10/09/24 at 2100, Not to exceed 4 grams of acetaminophen in 24 hours all sources 0312 (Given - Provider: Molly Massey RMakN.)0932 (Given - Provider: Pema RetanaNMak)1208 (Given - Provider: Donita Solis RTiffanie)1325 (MAR Hold - Provider: Transfer Provider, Automatic - Reason: Patient not available)1700 (Dose Auto Held - Provider: Transfer Provider, Automatic)1728 (MAR Unhold - Provider: Transfer Provider, Automatic)2120 (Given - Provider: Donita Solis RCollins.) 0842 (Given - Provider: Merna Jang RMakN.)1318 (Given - Provider: Janie Osei RMakNMak)1808 (Given - Provider: Janie Osei RMakN.)2324 (Given - Provider: Kerry Caicedo RMakN.) 0802 (Given - Provider: Liat Sam RMakN.)1223 (Given - Provider: Liat Sam R.N.) aspirin chewable tablet 324 mg (COMPLETED) 324 mg, oral, Once, On Tue10/10/24 at 1400, For 1 dose, Preprocedure (CV) 1332 (Given - Provider: Braulio Chin R.N.) aspirin DR tablet 81 mg 81 mg, oral, Daily, First dose on Tue10/11/24 at 1100, Swallow whole. Do NOT crush, chew, or split tablet. 1318 (Given - Provider: Janie Osei R.N.) 0802 (Given - Provider: Liat M Arcadia, R.N.) finasteride tablet 5 mg (Proscar) 5 mg, oral, Daily, First dose on Tue10/10/24 at 0900, See tube feeding guidelines for tube feeding administration instructions. 0932 (Given - Provider: Mariam Geiger R.N.)1325 ([facility] Hold - Provider: Transfer Provider, Automatic - Reason: Patient not available)1728 ([facility] Unhold - Provider: Transfer Provider, Automatic) 0846 (Given - Provider: Merna Jang R.N.) 0803 (Given - Provider: Vivian Coronel.N.) metoprolol succinate 24 hr tablet 25 mg (Toprol XL) 25 mg, oral, Daily, First dose on Tue10/10/24 at 0900, Do NOT crush or chew. Tablet may be split on score if needed. 0931 (Given - Provider: Mariam Geiger R.N.)1325 ([facility] Hold - Provider: Transfer Provider, Automatic - Reason: Patient not available)1728 ([facility] Unhold - Provider: Transfer Provider, Automatic) 0842 (Given - Provider: Merna Jang R.N.) 0802 (Given - Provider: Liat Sam RMakN.) oxyCODONE IR tablet 2.5 mg (Roxicodone) (COMPLETED) 2.5 mg, oral, Once, On Tue10/10/24 at 0515, For 1 dose 0522 (Given - Provider: Desiree Mckeon R.N.) rosuvastatin tablet 20 mg (Crestor) 20 mg, oral, Daily at bedtime, First dose on Tue10/10/24 at 2100 1325 ([facility] Hold - Provider: Transfer Provider, Automatic - Reason: Patient not available)1728 ([facility] Unhold - Provider: Transfer Provider, Automatic)2049 (Given - Provider: Donita Solis RMakN.) 2006 (Given - Provider: Kerry Caicedo R.N.) [...] Merna Jang R.N.)2006 (Given - Provider: Kerry Caiceod R.N.) 0802 (Given - Provider: Liat Sam R.N.) sodium chloride 0.9 % injection 3 mL [...] 0009 (New Bag - Provider: Desiree Mckeon RMakN.)0350 (Stopped - Provider: Desiree Mckeon RMakN.) PRN Medication Order 10/10/2024 10/11/2024 10/12/2024 D5W [...] period. 0512 (Given - Provider: Desiree Mckeon RMakN.) midazolam (PF) injection 0.5 mg (Versed) (CANCELED) 0.5 mg, intravenous, Every 2 min PRN, sedation, RASS -1, Starting on Tue10/10/24 at 1524, Intraprocedure (CV), May repeat every 2 minutes for a maximum of 5 mg. Do not give if respiratory rate is less than 8 breaths/minute. 1527 (Given - Provider: Jannette Otoole RCollins.)1531 (Given - Provider: Jannette Otoole R.N.) midazolam [...] crush, chew, split or swallow tablet. 1325 ([facility] Hold - Provider: Transfer Provider, Automatic - Reason: Patient not available)1728 ([facility] Unhold - Provider: Transfer Provider, Automatic) polyethylene glycol powder packet 17 g (Miralax) 17 g, oral, Daily PRN, constipation, Starting on Tue10/09/24 at 2026, Ordered sequence of administration: polyethylene glycol, then bisacodyl until BM achieved. Avoid mixing with starch-based thickened liquids. 1325 (MAR Hold - Provider: Transfer Provider, Automatic - Reason: Patient not available)1728 (MAR Unhold - Provider: Transfer Provider, Automatic)2228 (Given - Provider: Donita Solis, R.N.) sodium chloride 0.9 % injection 10 [...] documented in this encounter Care Teams Utility Clerk Relationship Specialty Start Date End Date Elsewhere, Pcp PCP - General Internal Medicine 10/09/24 documented as of this encounter
--- OUTSIDE RECORDS SUMMARY | 2024-10-10 22:25 | XMS_ITS | Encounter Summary ---
Author Organization [facility] Address [address] [place] [address] Care Team Providers Care Chaplaincy Name Role Phone Elsewhere, Pcp Primary Care [...] 0.6 oz pur e alcohol) [facility] Utilities Answer Date Recorded In the [...] your living situation today? I have a [facility] place to live 10/09/2024 Education Answer Date Recorded What is the highest level of school you have completed or the highest degree you have received? 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 [address] [place] [phone] China Parikh M.S.W., L.I.C.S.W. [address] [place] [phone] 11/12/2024 2:15 PM CDT Office Visit Department of Cardiovascular Medicine in [place], [place] [address] [place] [phone] Elisa Alva M.D. [address] [place] [phone] documented as of this encounter Procedures Procedure [...] on filedocumented in this encounter Care Teams Chaplaincy Relationship Specialty Start Date End Date Elsewhere, Pcp PCP - General Internal Medicine 10/09/24 documented as of this encounter
--- OUTSIDE RECORDS SUMMARY | 2024-10-17 08:30 | XMS_ITS | Encounter Summary ---
Author Organization [facility] Address [address] [place] [address] Care Team Providers Care Tour Guide Name Role Phone Elsewhere, Pcp Primary Care Provider Unavailabl e Reason for Visit * Outpatient (Routine) - Closed Specialty Diagnoses / Procedures Referred By Contac t Referred To Contact Urology Diagnoses Mass Bladder Shyam Musa M.D. [address] [place] [phone] Phone: tel: fax: [facility] Referral ID Status Reason Start Date Expiration Date Visits Re quested Visits Authorized [id number] Closed 09/04/2024 03/06/2026 1 1 Encounter Details Date Type Department Care Team (Latest Contact Info) Description 10/17/2024 8:30 AM CDT Comprehensive Visit Department of Urology in [place], [place] [address] [place] [phone] Pema Rojas M.D. [address] [place] [phone] Malignant Neoplasm Of Bladder (HCC) (Primary Dx) Social History Tobacco Use Types Packs/Day Years Used Date Smoking Tobacco: Former Smokeless Tobacco: Never Alcohol Use Standard Drinks/Week Comments Yes 3 (1 standard drink = 0.6 oz pur e alcohol) [facility] Utilities Answer Date Recorded In the past 12 months has [employer], gas, oil, or water company threatened [...] your living situation today? I have a [facility] place to live 10/09/2024 Education Answer Date Recorded What is the highest level of school you have completed or the highest degree you have received? 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 - 10/17/2024 8:30 AM CDT UROLOGY CLINIC NOTE SUBJECTIVE CHIEF COMPLAINT / REASON FOR CONSULT Metastatic bladder cancer Seen on Dr. Rojas's calendar Patient referred by Shyam Musa M.D. HISTORY OF PRESENT ILLNESS Mr. Samayoa is a 78 y.o. male who presents for evaluation of the above. Patient was initially seen by Dr. Marcos on 08/16/24 for evaluation of urinary retention and gross hematuria. CT urogram with large bladder mass with extravesical extension with bilateral hydronephrosis, along with enlarged pelvic, retroperitoneal, and retrocrural lymph node. Patient was set up for TURBT, however, upon preoperative workup he was found to have unstable angina and was admitted to the cardiovascular service at [facility] on 10/09. 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 Urology team met with him while he was inpatient and discussed whether there was any role for decompression at that time given his bilateral hydronephrosis. While his creatinine was steadily rising, he was making adequate urine and was asymptomatic, that decision was made to defer decompression. Patient advised to maintain Bryant catheter for management of urinary retention gross hematuria. Patient was discharged from [facility] on 10/12, and presents today for follow up. He is also scheduled to meet with Medical Oncology later today. Today he is doing well. Some mild right back pain, unclear when it started. Making adequate urine. Diagnostics: Left pelvic lymph node biopsy 10/11: metastatic urothelial carcinoma with micropapillary features RBUS 10/10: Moderate bilateral hydronephrosis, similar to recent CT. Irregular masslike thickening of bladder wall, consistent with known bladder mass. 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 Samayoa and his family today. We discussed diagnosis of metastatic urothelial cancer, and that treatment for this would be driven by medical oncologist who they are meeting with this afternoon. Discussed that decision re need for urinary tract decompression can also be driven by medical oncology pending labs and treatment plan. Patient remains relatively asymptomatic at this time. Discussed plan to continue with urinary catheter for urinary retention and gross hematuria in the this should be exchanged monthly which he can do locally. Pending patient's response to therapy, hopeis that he eventually will be able to void independently. Plan: -f/u with Dr. Menjivar this afternoon Patient was seen with and plan was discussed with supervising financial services consultant, Dr. Rojas. Sailaja Lassiter M.D. * Pema Rojas M.D. - 10/17/2024 8:30 AM CDT Seeing urologic oncology for cystectomy consultation. There is no role for surgical extirpation currently and probably not a good idea in the future. Regarding currently, he has biopsy-proven metastatic urothelial carcinoma, I suspect this is above the diaphragm in nodes. PET scan could be entertained as a baseline but will defer to med onc. He also has a T4 component locally in this pelvic that is asymptomatic. Likely the systemic therapy will not be cisplatin based, and likely Ev pembro in which renal function is not that dependent. Conceptually, after cycle or 2 of IO therapy he can have avoiding trial and may even have some resolution of his hydro. He is asymptomatic from the kidneys, but it becomes symptomatic and/or Medical Oncology would like decompression for whatever reason, then Interventional Radiology would have to put in bilateral percutaneous nephrostomy tubes. Any of hisCV disease can be treated/managed independent of what we would do urologically at this juncture-ie no contraindication. We will not make a formal followup with us documented in this encounter Plan of Treatment Upcoming Encounters Date Type Department Care Team (Late st Contact Info) Description 11/02/2024 1:00 PM CDT Clinical Support Department of Oncology in [place], [place] [address] [place] [phone] Polo Dwyer M.D. [address] [place] [phone] China Parikh M.SJean-Pierre., L.I.C.S.W. [address] [place] [phone] 11/12/2024 2:15 PM CDT Office Visit Department of Cardiovascular Medicine in [place], [place] [address] [place] [phone] Elisa Alva M.D. [address] [place] [phone] documented as of this encounter Visit Diagnoses Diagnosis Malignant Neoplasm Of Bladder (HCC)- Primary documented in this encounter Care Teams Tour Guide Relationship Specialty Start Date End Date Elsewhere, Pcp PCP - General Internal Medicine 10/09/24 documented as of this encounter
--- OUTSIDE RECORDS SUMMARY | 2024-10-17 09:21 | XMS_ITS | Encounter Summary ---
Author Organization [facility] Address [address] [place] [phone] Care Team Providers Care Photographic Spotter Name Role Phone Elsewhere, Pcp Primary Care Provider Unavailabl e Encounter Details Date Type Department Care Team (Latest Contact Info) Description 10/17/2024 9:21 AM CDT - 10/17/2024 11:59 PM CDT Hospital Encounter Department of Laboratory Medicine and Pathology, [facility] in [place], [place] [address] [place] [address] Shyam Musa M.D. [address] [place] [phone] Mass Bladder Discharge Disposition: Home or Self Care Social History Tobacco Use Types Packs/Day Years Used Date Smoking Tobacco: Former Smokeless Tobacco: Never Alcohol Use Standard Drinks/Week Comments Yes 3 (1 standard drink = 0.6 oz pur e alcohol) [facility] Utilities Answer Date Recorded In the past 12 months has e [employer], gas, oil, or water [employer] threatened to shut off services in your [...] living situation today? I have a [facility] place to live 10/09/2024 Education Answer Date Recorded What is the highest level of school you have completed or the highest degree you have received? 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 30 tablet 04/16/2020 hydrOXYzine (Atarax) 25 mg tabletIndicatio ns:Malignant Neoplasm Of Bladder (HCC) Take 1 tablet (25 mg total) by mouth 3 (three) times a day as needed for itching. 30 tablet 3 10/17/2024 metoprolol succinate (TOPROL-XL) 25 mg 24 hr tablet Take 25 mg by mouth daily. 01/28/2020 nitroglycerin (NITROSTAT) 0.[address] 0.4 mg under the tongue every 5 (five) minutes as needed for chest pain (Max 3 doses). If no relief 5 minutes after the 1st dose, seek medical attention immediately. May take up to 2 additional doses if needed. 03/19/2020 OLANZapine (ZyPREXA) 2.5 mg tabletIndicatio ns:Malignant Neoplasm Of Bladder (HCC) Take 1 tablet (2.5 mg total) by mouth at bedtime as needed (nausea, vomiting). May take dose early if needed. 30 tablet 3 10/17/2024 10/18/19 26 ondansetron (Zofran) 8 mg tabletIndicatio ns:Malignant Neoplasm Of Bladder (HCC) Take 1 tablet (8 mg total) by mouth every 8 (eight) hours as needed for nausea or vomiting (unrelieved by prochlorperazine). 30 tablet 3 10/17/2024 10/18/19 26 prochlorperazin e (Compazine) 10 mg tabletIndicatio ns:Malignant Neoplasm Of Bladder (HCC) Take 1 tablet (10 mg total) by mouth every 6 (six) hours as needed for nausea or vomiting. 30 tablet 3 10/17/2024 10/18/19 26 rosuvastatin (CRESTOR) 20 mg tablet Take 20 mg by mouth at bedtime. 03/19/2020 triamcinolone (Kenalog) 0.1 % lotionIndicatio ns:Malignant Neoplasm Of Bladder (HCC) Apply 1 Application topically 2 (two) times a day as needed (Rash, Itching). 180 mL 3 10/17/2024 documented as of this encounter Plan of Treatment Upcoming Encounters Date Type Department Care Team (Late st Contact Info) Description 11/02/2024 1:00 PM CDT Clinical Support Department of Oncology in [place], [place] [address] [place] [address] Polo Dwyer M.D. [address] [place] [phone] China Parikh M.S.W., L.I.C.S.W. [address] [place] [phone] 11/12/2024 2:15 PM CDT Office Visit Department of Cardiovascular Medicine in [place], [place] [address] [place] [phone] Elisa Alva M.D. [address] [place] [phone] documented as of this encounter Procedures Procedure Name Priority Date/Time Associated Diagnosis Comments CBC WITH DIFFERENTIAL, B Routine 10/17/2024 9:48 AM CDT Mass Bladder COMPREHENSIVE METABOLIC PANEL, S/P Routine 10/17/2024 9:48 AM CDT Mass Bladder documented in this encounter Results * (ABNORMAL) CBC with Differential, Blood (10/17/2024 9:48 AM CDT) Hemoglobin 10.0(L) 13.2 - 16.6 g/dL 10/17/2024 10:42 AM CDT DTL Hematocrit 31.3(L) 38.3 - 48.6 % 10/17/2024 10:42 AM CDT DTL Erythrocytes 3.11(L) 4.35 - 5.65 x10(12)/L 10/17/2024 10:42 AM CDT DTL MCV 100.6(H) 78.2 - 97.9 fL 10/17/2024 10:42 AM CDT DTL RBC Distrib Width 12.9 11.8 - 14.5 % 10/17/2024 10:42 AM CDT DTL Platelet Count 350(H) 135 - 317 x10(9)/L 10/17/2024 10:42 AM CDT DTL Leukocytes 8.3 3.4 - 9.6 x10(9)/L 10/17/2024 10:42 AM CDT DTL Neutrophils 5.93 1.56 - 6.45 x10(9)/L 10/17/2024 10:42 AM CDT [facility] Lymphocytes 1.57 0.95 - 3.07 x10(9)/L 10/17/2024 10:42 AM CDT DTL Monocytes 0.60 0.26 - 0.81 x10(9)/L 10/17/2024 10:42 AM CDT DTL Eosinophils 0.12 0.03 - 0.48 x10(9)/L 10/17/2024 10:42 AM CDT DTL Basophils 0.04 0.01 - 0.08 x10(9)/L 10/17/2024 10:42 AM CDT DTL Blood (Blood, Venous) 10/17/2024 9:48 AM CDT 10/17/2024 10:13 AM CDT Shyam Musa M.D. LAB BLOOD ADD-ON Final Result [facility] [address] DTL [facility] [address] [place] [address] * (ABNORMAL) Comprehensive Metabolic Panel (10/17/2024 9:48 AM CDT) [facility] Potassium, S 4.9 3.6 - 5.2 mmol/L 10/17/2024 10:51 AM CDT DTL Sodium, S 140 135 - 145 mmol/L 10/17/2024 10:51 AM CDT DTL Chloride, S 103 98 - 107 mmol/L 10/17/2024 10:51 AM CDT DTL Bicarbonate, S 27 22 - 29 mmol/L 10/17/2024 10:51 AM CDT DTL Anion Gap 10 7 - 15 10/17/2024 10:51 AM CDT DTL BUN (Blood Urea Nitrogen), S 21 8 - 24 mg/dL 10/17/2024 10:51 AM CDT DTL Creatinine 1.93(H) 0.74 - 1.35 mg/dL 10/17/2024 10:51 AM CDT DTL Estimated GFR (eGFR) 35(L) >=60 mL/min/BS A 10/17/2024 10:51 AM CDT DTL Comment: Estimated GFR calculated using the 2020 CKD_EPI creatinine equation. Calcium, Total, S 8.9 8.8 - 10.2 mg/dL 10/17/2024 10:51 AM CDT DTL Glucose, S 92 70 - 140 mg/dL 10/17/2024 10:51 AM CDT DTL Protein, Total, S 7.0 6.3 - 7.9 g/dL 10/17/2024 10:51 AM CDT DTL Albumin, S 3.7 3.5 - 5.0 g/dL 10/17/2024 10:51 AM CDT DTL Aspartate Aminotransferase (AST), S 17 8 - 48 U/L 10/17/2024 10:51 AM CDT DTL Alkaline Phosphatase, S 97 40 - 129 U/L 10/17/2024 10:51 AM CDT DTL Alanine Aminotransferase (ALT), S 17 7 - 55 U/L 10/17/2024 10:51 AM CDT DTL Bilirubin, Total, S 0.3 0.0 - 1.2 mg/dL 10/17/2024 10:51 AM CDT DTL Blood (Blood, Venous) 10/17/2024 9:48 AM CDT 10/17/2024 10:11 AM CDT Shyam Musa M.D. LAB BLOOD ADD-ON Final Result [facility] [address] [place] [address], [facility] DTL [facility] [address] [place] [address] documented in this encounter Visit Diagnoses Diagnosis Mass Bladder documented in this encounter Care Teams Photographic Spotter Relationship Specialty Start Date End Date Elsewhere, Pcp PCP - General Internal Medicine 10/09/24 documented as of this encounter
--- OUTSIDE RECORDS SUMMARY | 2024-10-17 13:20 | XMS_ITS | Encounter Summary ---
Author Organization [facility] Address [address] [place] [address] Care Team Providers Care Process Artist Name Role Phone Elsewhere, Pcp Primary Care Provider Unavailabl e Reason for Referral * Outpatient (Routine) Specialty Diagnoses / Procedures Referred By Keiko t Referred To Contact Oncology Diagnoses Malignant Neoplasm Of Bladder (HCC) Medication Therapy Starter Cup Powder Mixer Not Anticoagulant Starter Cup Powder Mixer Current Drug Therapy, Chemotherapy Alisa Menjivar M.D. [address] [place] [address] Phone: tel: fax: [facility] Referral ID Status Reason Start Date Expiration Date Visits Re quested Visits Authorized * Medication Prior Authorization - Closed Specialty Diagnoses / Procedures Referred By Contac t Referred To Contact Diagnoses Malignant Neoplasm Of Bladder (HCC) Polo Dwyer M.D. [address] [place] [address] Phone: tel: fax: Referral ID Status Reason Start Date Expiration Date Visits Re quested Visits Authorized [id number] Closed 1 1 * Specialty Diagnoses / Procedures Referred By Contac t Referred To Contact Diagnoses Malignant Neoplasm Of Bladder (HCC) Medication Therapy Prison Not Anticoagulant Starter Cup Powder Mixer Current Drug Therapy, Chemotherapy Polo Dwyer M.D. [address] [place] [address] Phone: tel: fax: [facility] Referral ID Status Reason Start Date Expiration Date Visits Re quested Visits Authorized * Outpatient (Routine) - Authorized Specialty Diagnoses / Procedures Referred By Keiko latif Referred To Contact Social Work Diagnoses Malignant Neoplasm Of Bladder (HCC) Polo Dwyer M.D. [address] [place] [address] Phone: tel: fax: [facility] Referral ID Status Reason Start Date Expiration Date V isits Requested Visits Authorized [id number] Authorized 10/17/2024 04/18/2026 1 1 Reason for Visit * Outpatient (Routine) - Closed Specialty Diagnoses / Procedures Referred By Keiko latif Referred To Contact Medical Oncology / Oncology Diagnoses Mass Bladder Shyam Musa M.D. [address] [place] [address] Phone: tel: fax: [facility] Referral ID Status Reason Start Date Expiration Date Visits Re quested Visits Authorized [id number] Closed 09/04/2024 03/06/2026 1 1 Encounter Details Date Type Department Care Team (Latest Contact Info) Description 10/17/2024 1:20 PM CDT Comprehensive Visit Department of Oncology in [place], [place] [address] [place] [phone] Alisa Menjivar M.D. [address] [place] [phone] Malignant Neoplasm Of Bladder (HCC) (Primary Dx); Other Prison Current Drug Therapy; Medication Therapy Starter Cup Powder Mixer Not Anticoagulant; Prison Current Drug Therapy, Chemotherapy Social History Tobacco Use Types Packs/Day Years Used Date Smoking Tobacco: Former Smokeless Tobacco: Never Alcohol Use Standard Drinks/Week Comments Yes 3 (1 standard drink = 0.6 oz pur e alcohol) [facility] Utilities Answer Date Recorded In the [...] your living situation today? I have a [facility] place to live 10/09/2024 Education Answer Date Recorded What is the highest level of school you have completed or the highest degree you have received? 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 PCP - General, Family Medicine [phone] REQUESTING PROVIDER Shyam Musa M.D. [address] [place] [phone] LOCAL ONCOLOGIST care produce team member to display [facility]LLOW Polo Dwyer MD PRIMARY [employer] ONCOLOGIST Alisa Menjivar M.D. REASON FOR CONSULT [...] Samayoa and his family travel here from [facility], an hour away. 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 [...] Mr. Samayoa's has early dementia with a rn urgent care who stops by their house three times [...] today. Patient was seen and discussed with [place] hadoop consultant Dr. Menjivar. Polo Dwyer M.D. Hematology/Oncology Fellow, PGY-4 Pgr: [phone] Tel: [phone] Cosigned by Alisa Menjivar M.D. at 10/18/2024 [...] will start the 1st 3 cycles in [place] and if he does okay, transfer his care to [place]. We need explained carefully natural history disease, including that is more likely that the treatment will be palliative instead of curative. documented in this encounter Plan of Treatment Upcoming Encounters Date Type Department Care Team (Late st Contact Info) Description 11/02/2024 1:00 PM CDT Clinical Support Department of Oncology in [place], [place] [address] [place] [phone] Polo Dwyer M.D. [address] [place] [phone] China Parikh, M.S.W., L.I.C.S.W. [address] [place] [phone] 11/12/2024 2:15 PM CDT Office Visit Department of Cardiovascular Medicine in [place], [place] [address] [place] [phone] Elisa Alva M.D. [address] [place] [phone] Scheduled Orders Name Type Priority Associated Diagnoses Orde r Schedule CBC with Differential, Blood Lab Routine Malignant Neoplasm Of Bladder (HCC) Medication Therapy Prison Not Anticoagulant Starter Cup Powder Mixer Current Drug Therapy, Chemotherapy Expected: 10/26/2024, Expires: 10/27/2027 Comprehensive Metabolic Panel Lab Routine Malignant Neoplasm Of Bladder (HCC) Medication Therapy Prison Not Anticoagulant Starter Cup Powder Mixer Current Drug Therapy, Chemotherapy Expected: 10/26/2024, Expires: 10/26/2025 Thyroid Function [place] Lab Routine Malignant Neoplasm Of Bladder (HCC) Other Prison Current Drug Therapy Expected: 10/26/2024, Expires: 10/26/2025 CBC, Chemotherapy, No Alerts Lab Routine Malignant Neoplasm Of Bladder (HCC) Medication Therapy Prison Not Anticoagulant Starter Cup Powder Mixer Current Drug Therapy, Chemotherapy Expected: 11/02/2024, Expires: 11/02/2025 Comprehensive Metabolic Panel Lab Routine Malignant Neoplasm Of Bladder (HCC) Medication Therapy Prison Not Anticoagulant Prison Current Drug Therapy, Chemotherapy Expected: 11/02/2024, Expires: 11/02/2025 CBC with Differential, Blood Lab Routine Malignant Neoplasm Of Bladder (HCC) Medication Therapy Prison Not Anticoagulant Starter Cup Powder Mixer Current Drug Therapy, Chemotherapy Expected: 11/16/2024, Expires: 11/17/2027 Comprehensive Metabolic Panel Lab Routine Malignant Neoplasm Of Bladder (HCC) Medication Therapy Starter Cup Powder Mixer Not Anticoagulant Prison Current Drug Therapy, Chemotherapy Expected: 11/16/2024, Expires: 11/16/2025 CBC, Chemotherapy, No Alerts Lab Routine Malignant Neoplasm Of Bladder (HCC) Medication Therapy Prison Not Anticoagulant Starter Cup Powder Mixer Current Drug Therapy, Chemotherapy Expected: 11/23/2024, Expires: 11/23/2025 Comprehensive Metabolic Panel Lab Routine Malignant Neoplasm Of Bladder (HCC) Medication Therapy Starter Cup Powder Mixer Not Anticoagulant Prison Current Drug Therapy, Chemotherapy Expected: 11/23/2024, Expires: 11/23/2025 Scheduled Referrals Name Type Priority Associated Diagnoses Orde r Schedule Social Work - General consult (clinic) Outpatient Referral Routine Malignant Neoplasm Of Bladder (HCC) Expected: 10/17/2024, Expires: 01/17/2026 Oncology - Chemo education visit (clinic) Outpatient Referral Routine Malignant Neoplasm Of Bladder (HCC) Medication Therapy Prison Not Anticoagulant Prison Current Drug Therapy, Chemotherapy Expected: 10/17/2024, Expires: 01/17/2026 Oncology office visit (clinic) Outpatient Referral Routine Malignant Neoplasm Of Bladder (HCC) Medication Therapy Starter Cup Powder Mixer Not Anticoagulant Prison Current Drug Therapy, Chemotherapy Expected: 11/16/2024, Expires: 02/16/2026 documented as of this encounter Visit Diagnoses Diagnosis Malignant Neoplasm Of Bladder (HCC)- Primary Other Prison Current Drug Therapy Medication Therapy Starter Cup Powder Mixer Not Anticoagulant Prison Current Drug Therapy, Chemotherapy documented in this encounter Care Teams Process Artist Relationship Specialty Start Date End Date Elsewhere, Pcp PCP - General Internal Medicine 10/09/24 documented as of this encounter
--- OUTSIDE RECORDS SUMMARY | 2024-10-23 15:06 | XMS_ITS | Encounter Summary ---
Author Organization [facility] Address [address] [place] [address] Care Team Providers Care Client Support Coordinator Name Role Phone Elsewhere, Pcp Primary Care Provider Unavailabl e Encounter Details Date Type Department Care Team (Late st Contact Info) Description 10/13/2024 Documentation Department of Urology in [place], [place] [address] [place] [phone] Charla Childress M.D. [address] [place] [address] Social History Tobacco Use Types Packs/Day Years Used Date Smoking Tobacco: Former Smokeless Tobacco: Never Alcohol Use Standard Drinks/Week Comments Yes 3 (1 standard drink = 0.6 oz pur e alcohol) [facility] Utilities Answer Date Recorded In the past 12 months has [facility] [employer], gas, oil, or water [employer] threatened to shut off services in your [...] your living situation today? I have a [facility] place to live 10/09/2024 Education Answer Date Recorded What is the highest level of school you have completed or the highest degree you have received? 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 - 10/13/2024 1:15 PM CDT Error. documented in this encounter Plan of Treatment Upcoming Encounters Date Type Department Care Team (Late st Contact Info) Description 11/02/2024 1:00 PM CDT Clinical Support Department of Oncology in [place], [place] 200 [place] [address] Polo Dwyer M.D. 200 [place] [address] China Parikh M.S.W., Carolyn.S.W. [address] [place] [address] 11/12/2024 2:15 PM CDT Office Visit Department of Cardiovascular Medicine in [place], [place] [address] [place] [address] Elisa Alva M.D. 200 [place] [address] documented as of this encounter Visit Diagnoses Not on filedocumented in this encounter Care Teams Client Support Coordinator Relationship Specialty Start Date End Date Elsewhere, Pcp PCP - General Internal Medicine 10/09/24 documented as of this encounter
--- OUTSIDE RECORDS SUMMARY | 2024-10-23 15:06 | XMS_ITS | Encounter Summary ---
Author Organization [facility] Address [address] [place] [address] Care Team Providers Care Deliverer Pharmacy Name Role Phone Elsewhere, Pcp Primary Care Provider Unavailabl e Encounter Details Date Type Department Care Team (Late st Contact Info) Description 10/13/2024 Orders Only Department of Urology in [place], [place] [address] [place] [phone] Charla Childress M.D. [address] [place] [address] Social History Tobacco Use Types Packs/Day Years Used Date Smoking Tobacco: Former Smokeless Tobacco: Never Alcohol Use Standard Drinks/Week Comments Yes 3 (1 standard drink = 0.6 oz pur e alcohol) [facility] Utilities Answer Date Recorded In the past 12 months has [facility] [employer], gas, oil, or water [employer] threatened to shut off services in your [...] your living situation today? I have a [facility] place to live 10/09/2024 Education Answer Date Recorded What is the highest level of school you have completed or the highest degree you have received? 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, TRAVEL GUIDE, BERTA) 05/11/2020 Sex and Gender Information Value Date Recorded Sex Assigned at Male 09/04/2024 9:32 AM CDT Legal Sex Male 5:45 PM ACCT EXEC Gender Identity Male 09/04/2024 9:32 AM CDT Sexual Orientation Straight 09/04/2024 9: 32 AM CDT documented as of this encounter Plan of Treatment Upcoming Encounters Date Type Department Care Team (Late st Contact Info) Description 11/02/2024 1:00 PM CDT Clinical Support Department of Oncology in [place], [place] [address] [place] [phone] Polo Dwyer M.D. [address] [place] [phone] China Parikh M.S.W., L.I.C.S.W. [address] [place] [phone] 11/12/2024 2:15 PM CDT Office Visit Department of Cardiovascular Medicine in [place], [place] [address] [place] [phone] Elisa Alva M.D. [address] [place] [address] documented as of this encounter Visit Diagnoses Not on filedocumented in this encounter Care Teams Deliverer Pharmacy Relationship Specialty Start Date End Date Elsewhere, Pcp PCP - General Internal Medicine 10/09/24 documented as of this encounter
--- OUTSIDE RECORDS SUMMARY | 2024-10-23 15:06 | XMS_ITS | Encounter Summary ---
Author Organization [facility] Address [address] [place] [address] Care Team Providers Care Doctor Of Pharmacy Name Role Phone Elsewhere, Pcp Primary Care Provider Unavailabl e Reason for Visit * Reason Onset Date Comments Order Request 10/23/2024 Encounter Details Date Type Department Care Team ([facility] st Contact Info) Description 10/23/2024 Clinical Communication Department of Oncology in [place], [place] [address] [place] [phone] Alisa Menjivar M.D. [address] [place] [phone] Order Request Social History Tobacco Use Types Packs/Day Years Used Date Smoking Tobacco: Former Smokeless Tobacco: Never Alcohol Use Standard Drinks/Week Comments Yes 3 (1 standard drink = 0.6 oz pur e alcohol) [facility] Utilities Answer Date Recorded In the past 12 months has [facility] [employer], gas, oil, or water [employer] threatened to shut off services in your [...] a [facility] place to live 10/09/2024 Education Answer Date Recorded What is the highest level of school you have completed or the highest degree you have received? 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 [address] [place] [phone] China Parikh M.S.W., L.I.C.S.W. 200 [place] [address] 11/12/2024 2:15 PM CDT Office Visit Department of Cardiovascular Medicine in [place], [place] [address] [place] [address] Elisa Alva M.D. [address] [place] [address] documented as of this encounter Visit Diagnoses Not on filedocumented in this encounter Care Teams Doctor Of Pharmacy Relationship Specialty Start Date End Date Elsewhere, Pcp PCP - General Internal Medicine 10/09/24 documented as of this encounter
--- OUTSIDE RECORDS SUMMARY | 2024-10-23 15:06 | XMS_ITS | Clinical Summary ---
Author Organization [facility] Address [facility] [place] [address] Care Team Providers Care Transport Company Manager Name Role Phone Osorio Galvan MD Primary Care Provider [phone] Allergies Active Allergy Reactions Criticality Noted Date Comments Citalopram Tinnitus 01/16/2020 Atorvastatin Myalgia 05/06/2014 Medications valACYclovir (VALTREX) 1 gram tabletIndications: Herpes Take 1 Tablet (1 g) by mouth once daily. For 5 days at first sign of a flare. 30 Tablet 3 02/17/20 23 Active polyethylene glycol-electrolyte 236-22.74-6.74 -5.86 gram suspensionIndicati ons:Encounter for screening colonoscopy Drink 2 liters the day before the procedure and 2 liters 6 hours prior to procedure. 4000 mL 07/21/19 25 Active aspirin 81 mg enteric coated tabletIndications: Coronary artery disease involving huslia heart without angina pectoris, unspecified vessel or lesion type,Ascending aorta dilatation,ASHD (arteriosclerotic heart disease),Hyperlipi demia, unspecified hyperlipidemia type Take 1 Tablet (81 mg) by mouth once daily with a meal. 07/18/19 25 Active nitroglycerin 0.4 mg sublingual tabletIndications: Coronary artery disease involving huslia heart without angina pectoris, unspecified vessel or lesion type Place 1 Tablet (0.4 mg) under the tongue every 5 minutes if needed for Chest Pain. Up to 3 tablets in 15 minutes. 20 Tablet 3 07/18/19 25 Active rosuvastatin 20 mg tabletIndications: Cerebrovascular accident (CVA), unspecified mechanism (HC) Take 1 Tablet (20 mg) by mouth at bedtime. 90 Tablet 3 07/28/19 25 Active metoprolol succinate 25 mg Sustained-Release tabletIndications: Ascending aorta dilation,Angina pectoris Take 1 Tablet (25 mg) by mouth once daily. 90 Tablet 3 07/28/19 25 Active finasteride 5 mg tabletIndications: BPH without urinary obstruction Take 1 Tablet (5 mg) by mouth once daily in the morning. 90 Tablet 3 07/28/19 25 Active cyanocobalamin 1,000 mcg/mL injection Inject 1,000 mcg intramuscular every 4 weeks. 07/06/19 25 026 Active Hospital, Clinic, or Other Facility Administered Medication Ordered Dose Route Frequency Start Date End Date Status cyanocobalamin (VITAMIN B12) 1,000 mcg/mL injection 1,000 mcgIndications:B12 deficiency 1000 mcg IM Q 4 WEEKS (28 DAYS) 09/11/2024 08/13/2025 Active Active Problems Problem Noted Date Diagnosed Date Hydronephrosis, bilateral 08/13/2024 Bladder mass 08/13/2024 Urinary retention 08/13/2024 Major depressive disorder, recurrent, mild 07/03 Angina pectoris 07/03/2021 Urethral false passage 03/28/2020 Mild cognitive impairment 03/08/2020 Overview (03/08/2020): 2019 CAD (coronary artery disease) 03/07/2020 Overview (03/07/2020): 01/2020 Per Cardiology note from [facility]: CTCA shows severe OM1 (small) and 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 We will proceed with medical therapy for [...] Encounters Date Type Department Care Team Description 10/23/[address] [facility] [address] [place] [address] Osorio Galvan MD Catheter Problem 10/23/[address] [facility] [address] [place] [address] Osorio Galvan MD Catheter Problem 10/22/2024 10:00 AM CDT Office Visit [facility] [address] [facility] [address] Osorio Galvan MD Hospital F/U ([place] 10/07-10/11 ) 10/22/2024 Travel 10/18/2024 9:00 AM CDT Nurse/Clinic Staff Only [facility] [address] [facility] [address] Immunization/Injec tion (VITAMIN B-12 INJECTION ) 10/18/2024 Travel 10/16/2024 8:15 AM CDT Office Visit [facility] [address] [facility] [address] Vaishnavi Deng MD [facility] F/U 10/15/2024 Travel 10/12/[address] [facility] [address] [place] [address] Osorio Galvan MD Lab (Blood work needed) 10/10/2024 Orders Only [facility] Scanner 1 scan: (1-Ord) [place], CORONARY ANGIOGRAPHY, 10/10/2024 09/10/2024 4:15 PM CDT Nurse/Clinic Staff Only [facility] [address] [place] [address] Immunization/Injec tion (B12) 09/10/2024 Travel 08/27/2024 Orders Only [facility] Scanner 1 scan: (1-Ord) [facility], CT ABDOMEN PELVIS W CON, 08/27/2024 08/24/2024 11:20 AM CDT Office Visit [facility] [address] [facility] [address] Osorio Galvan MD [facility] F/U (ANW - bladder/kidney obstruction/Has catheter placed); Memory Loss (Daughter asking about memory concerns); Referral (Home care referral) 08/24/2024 Travel 08/22/[address] [facility] [address] [facility] [place] [address] Osorio Galvan MD Questions (Request ) 08/22/[address] [facility] [address] [facility] [place] [address] Osorio Galvan MD Appointment (Request ) 08/16/2024 Orders Only [facility] Scanner 1 scan: (1-Ord) [place], MULTIPLE LABS, 08/16/2024 08/15/[address] [facility] [address] [place] [address] More Watson, RN Primary RN Care Management; Hospital F/U (LACE 56) 08/12/2024 7:45 PM CDT - 08/14/2024 5:36 PM CDT Hospital Encounter [facility] [address] [place] [address] Yvette Duffy MD [facility] Hospitalists Of Meli Emmanuel DO Shettigar, Amrith, MD Discharge Disposition: Home Self Care 08/12/2024 Orders Only [facility] Scanner 1 scan: (1-Ord) [facility], CT ABDOMEN PELVIS W CON, 08/12/2024 08/12/2024 Travel 08/09/2024 Lab Requisition [facility] [phone] Loyd Broussard MD 08/08/2024 9:15 AM CDT Office [facility] [address] [place] [address] Loyd Broussard MD 07/27/2024 10:05 AM CDT Office Visit [facility] [address] [place] [address] Osorio Galvan MD Medicare ANNUAL (subsequent) Visit (80 years); Preoperative Exam (Colonoscopy 08/08) 07/27/2024 Travel from Last 3 Months Immunizations Immunization Administration Dates Next Due Amb Influenza, Inact (High-d ose) (Flu Clinic Only) 12/26/2015,12/26/2015,01/15/2014 COVID-19 VACCINE SPIKEVAX (M ODERNA 50MCG/0.5ML) 12YO+ PFS 05/31/2023,01/11/2023 COVID-19 vaccine (Pfizer-Bio NTech 30mcg/0.3mL) 12YO+ BIVALENT PF, MDV 08/12/2022,12/28/2021 COVID-19 vaccine (Pfizer-Bio NTech 30mcg/0.3mL) 12YO+ LESLI-SUCROSE PF, MDV 06/30/2021 COVID-19 vaccine (Cyber-Rain NTTrepUp 30mcg/0.3mL) PF, MDV 12/24/2020,06/12/2020,05/22/2020 Influenza, High-dose Inactivated [...] on file Legal Sex Male 8:42 AM STUNT PERFORMER Gender Identity Not on file Sexual Orientation Not on file Obstetrics History Last Filed Vital Signs Vital Sign Reading Time Taken Comments Blood Pressure 144/77 10/22/2024 10:20 AM CDT Pulse 53 10/22/2024 10:20 AM CDT Temperature 36.7 C (98 F) 08/24/2024 11:31 AM CDT Respiratory Rate 16 08/14/2024 5:14 PM CDT Oxygen Saturation 94% 10/22/2024 10: 20 AM CDT Inhaled Oxygen Concentration - - Weight 78.9 kg (173 lb 14.4 oz) 025 10:20 AM CDT Height 172.7 cm (5' 8) 08/12/2024 7:48 PM CDT Body Mass Index 26.44 08/12/2024 7:48 PM CDT Plan of Treatment Upcoming Encounters Date Type Department Care Team (Late st Contact Info) Description 11/06/2024 9:00 AM CDT Orders Only [address] [phone] Clementine Ordaz 11/16/2024 10:05 AM CDT Office Visit [facility] [address] [place] [address] Osorio Galvan MD [address] [place] [address] Health Maintenance Due Date Last Done Comments RSV vaccine for adults or (1 - 1-dose 75+ series) 10/27/2018 COVID-19 vaccine series (2023- season) 2024 07/18/2024, 12/09/2023, 05/31/2023, Additional history exists Influenza Vaccine (#1) 2024 , 01/11/2023, 12/28/2021, Additional history exists BMI (ht and wt on same day) for age 18+ 07/27/2025 07/27/2024, 07/18/2023, 05/02/2023, Additional history exists Depression screening for age 12+ 07/27/2025 07/27/2024, 02/16/2023, 12/28/2021, Additional history exists Medicare Wellness for age 65+ 07/28/2025 07/27/2024, 02/16/2023, 12/28/2021, Additional history exists Tetanus booster 04/10/2032 04/10/2022, 07/28/2012 Pneumococcal series for age 50+ Completed 03/27/2018, 05/24/2016 Zoster (shingles) series for age 50+ Completed 07/05/2018, 04/19/2018 Hepatitis B series for 19+ Aged Out N o longer eligible based on patient's age to complete this topic Medical Devices Implanted Type Area Ground Products Director Device Identifier Shelf Expiration Date Model / Serial / Lot Tissue Pericardium 0.8x8cm Xenosure - [id number] Implanted:Qty: 1 on 03/10/2020 by Isidro Smiley MD at [facility] Right: Carotid Artery [employer] 07/23/2025 0.8P8# / / [id number] Procedures Procedure Name Priority Date/Time Associated Diagnosis Comments BASIC METABOLIC PANEL Routine 10/22/2024 11:10 AM CDT Stage 3 chronic kidney disease, unspecified whether stage 3a or 3b CKD (HC) BASIC METABOLIC PANEL Routine 10/16/2024 9:27 AM CDT Medication monitoring encounter SCAN-ANGIOGRAM 10/10/2024 12:00 AM CDT SCAN-CT INTERPRETATION 12:00 AM CDT BASIC METABOLIC PANEL Routine 08/24/2024 12:52 PM CDT Hydronephrosis, bilateral Urinary retention SCAN-PATHOLOGY REPORT 08/16/2024 12:00 AM CDT HEMOGLOBIN Early AM 08/14/2024 7:10 AM CDT [...] colon, unspecified part of colon, unspecified type from Last 3 Months Results * (ABNORMAL) BASIC METABOLIC PANEL (10/22/2024 11:10 AM CDT) Only the most recent of5 resultswithin the time period is included. GLUCOSE 94 65 - 99 mg/dL [facility] Comment: Fasting reference interval UREA NITROGEN (BUN) 19 7 - 25 mg/dL [facility] CREATININE 1.70(H) 0.70 - 1.22 mg/dL [facility] EGFR 40(L) > OR = 60 mL/min/1.7 3m2 [facility] BUN/CREATININE RATIO 11 6 - 22 (calc) [facility] SODIUM 138 135 - 146 mmol/L [facility] POTASSIUM 4.6 3.5 - 5.3 mmol/L [facility] CHLORIDE 102 98 - 110 mmol/L [facility] CARBON DIOXIDE 30 20 - 32 mmol/L [facility] ELECTROLYTE BALANCE 6(L) 7 - 17 mmol/L (calc) [facility] CALCIUM 8.8 8.6 - 10.3 mg/dL [facility] Blood BLOOD SPECIMEN / Unknown 10/22/2024 11:10 AM CDT 10/22/2024 11:11 AM CDT Osorio Galvan MD CHEMISTRY Final Resu lt [employer] [facility] [address] [place] [address], [facility] [address] [place] [address] * SCAN-ANGIOGRAM (10/10/2024 12:00 AM CDT) Anatomical Region Laterality Modality Other us Scanner OTHER Final Result * SCAN-CT INTERPRETATION (08/27/2024 12:00 AM CDT) Only the most recent of2 resultswithin the time period is included. Anatomical Region Laterality Modality Other us Scanner OTHER Final Result * SCAN-PATHOLOGY REPORT (08/16/2024 12:00 AM CDT) us Scanner OTHER Final Result * (ABNORMAL) Hemoglobin AM (08/14/2024 7:10 AM CDT) HEMOGLOBIN 11.8(L) 13.5 - 17.5 g/dL 08/14/2024 7:24 AM CDT [facility] MCV 98 80 - 100 fL 08/14/2024 7:24 AM CDT [facility] Blood BLOOD SPECIMEN / Unknown Venipuncture / Unknown 08/14/2024 7:10 AM CDT 08/14/2024 7:16 AM CDT us Polo Huizar MD HEMATOLOGY Final Result [facility] [address] [place] [address], [place] * US RENAL AND BLADDER COMPLETE (08/13/2024 [...] For Patients: As a result of the Century Cures Act, medical imaging exams and procedure [...] AM (Electronically Signed) us Annabella Sofia MERCER US Final Resu lt * (ABNORMAL) CBC W PLT NO DIFF (08/13/2024 7:27 AM CDT) [place] BLOOD COUNT 6.3 4.5 - 11.0 thou/cu mm 08/13/2024 7:56 AM CDT [facility] RED BLOOD COUNT 3.45(L) 4.30 - 5.90 mil/cu mm 08/13/2024 7:56 AM CDT [facility] HEMOGLOBIN 11.6(L) 13.5 - 17.5 g/dL 08/13/2024 7:56 AM CDT [facility] HEMATOCRIT 34.0(L) 37.0 - 53.0 % 08/13/2024 7:56 AM CDT [facility] MCV 99 80 - 100 fL 08/13/2024 7:56 AM CDT [facility] MCH 33.6 26.0 - 34.0 pg 08/13/2024 7:56 AM CDT [facility] MCHC 34.1 32.0 - 36.0 g/dL 08/13/2024 7:56 AM CDT [facility] RDW 12.8 11.5 - 15.5 % 08/13/2024 7:56 AM CDT [facility] PLATELET COUNT 157 140 - 440 thou/cu mm 08/13/2024 7:56 AM CDT [facility] MPV 9.6 6.5 - 11.0 fL 08/13/2024 7:56 AM CDT [facility] NRBC 0.0 % 08/13/2024 7:56 AM CDT [facility] ABS NRBC 0.0 thou /cu mm 08/13/2024 7:56 AM CDT [facility] Blood BLOOD SPECIMEN / Unknown Venipuncture / Unknown 08/13/2024 7:27 AM CDT 08/13/2024 7:48 AM CDT us Meli Emmanuel DO HEMATOLOGY Gabriella ericka Result [facility] [address] [place] [address], * PSA TOTAL (08/13/2024 7:27 AM CDT) PSA TOTAL 0.40 <4.00 ng/mL 08/13/2024 8:37 AM CDT [facility] Blood BLOOD SPECIMEN / Unknown Venipuncture / Unknown 08/13/2024 7:27 AM CDT 08/13/2024 7:48 AM CDT Narrative [facility] - 08/13/2024 8:37 AM CDT The test [...] be different and cannot be used interchangeably. Meli Emmanuel DO CHEMISTRY Gabriella l Result Performing Organization Address [facility]/ZIP Co de Phone Number [facility] [address] [place] [address], [place] * LAB TRACKING EVENT (08/08/2024 10:36 AM CDT) Other (Other) Client Collect / Unknown 08/08/2024 10:36 AM CDT 08/09/2024 7:01 AM CDT Loyd Broussard MD LAB BILL ONLY Final Res ult Performing Organization Address [facility] Co de Phone Number [facility] [address] [address], [place] * PATH TISSUE EXAM (08/08/2024 10:36 AM CDT) Case Report Pathology Report Case: [id number] Authorizing Provider: Loyd Broussard MD Collected: 08/08/2024 1036 Ordering Location: [facility] Received: 08/09/2024 0923 Pathologist: Shivam Nicole MD Specimen: Rectal Biopsy 08/13/2024 1:34 PM CDT [facility] Final Diagnosis A) RECTUM, POLYPECTOMY: 1. Hyperplastic polyp 08/13/2024 1:34 PM CDT [facility] at 1334 CDT Clinical Information Surveillance colonoscopy Colonoscopy findings: Single rectal polyp, completely removed. 08/13/2024 1:34 PM CDT [facility] Gross Description A) Received in formalin is a abraham mucosal fragment measuring 6 mm in greatest dimension, which is entirely submitted in one cassette. It is labeled with the patient's name and designated rectum. Ava Lucia 08/09/2024 1:07 PM 08/13/2024 1:34 PM CDT [facility] Microscopic Description The final diagnosis is based on microscopic examination of appropriate sections of all specimens. 08/13/2024 1:34 PM CDT [facility] Additional Information Interpreted at [facility] - [address] [place] [address] 08/13/2024 1:34 PM CDT [facility] Other (Rectal Biopsy) 08/08/2024 10:36 AM CDT 08/09/2024 9:23 AM CDT Loyd Broussard MD PATHOLOGY/CYTOLOGY Final Result [facility] [address] [place] [address], * COLONOSCOPY SCREENING (08/08/2024 12:00 AM CDT) Loyd Broussard MD GI PROCEDURE ORD Edited R esult - Final from Last 3 Months Insurance MEDICARE PB ONLY PB ONLY Member Subscriber Plan / Payer ( fective 2016-Present) Name:Hernandez Samayoa Relation to Subscriber:Self Name:Hernandez Samayoa Payer ID:Not on file Group ID:NONE Type:Not on file Address: [address] [place] ONLY MEDICARE PART B [place] ONLY [...] Comments Code Status Discussion: Discussed Care Teams Transport Company Manager Relationship Specialty Start Date End Date Osorio Galvan MD [address] [place] [address] PCP - General Family Practice 07/20/12
--- OUTSIDE RECORDS SUMMARY | 2024-10-23 15:07 | XMS_ITS | Encounter Summary ---
Author Organization [facility] Address [address] [place] [address] Care Team Providers Care Director Loan Name Role Phone Elsewhere, Pcp Primary Care Provider Unavailabl e Reason for Referral * Outpatient (Routine) - Authorized Specialty Diagnoses / Procedures Referred By Contac t Referred To Contact Diagnoses Pain Chest Procedures NM Cardiac Perfusion Rest and Stress SPECT Ab Shabazz MPAS, P.A.-C., M.S. [address] [place] [address] Phone: tel: fax: [facility] Referral ID Status Reason Start Date Expiration Date V isits Requested Visits Authorized [id number] Authorized 10/02/2024 01/02/2026 8 8 Reason for Visit * Reason Onset Date Comments Triage 10/01/2024 Santiago Alvares Preop # [id number] Encounter Details Date Type Department Care Team (Latest Contact Info) Description 10/01/2024 Clinical Communication Department of Cardiovascular Medicine in [place], [place] [address] [place] [phone] Cigarette InspectorMarco Antonio M.D. Triage (Dia Anesthesia Preop # [id number]) Social History Tobacco Use Types Packs/Day Years Used Date Smoking Tobacco: Former Smokeless Tobacco: Never Alcohol Use Standard Drinks/Week Comments Yes 6 (1 standard drink = 0.6 oz pur e alcohol) [facility] Utilities Answer Date Recorded In the [...] your living situation today? I have a [facility] place to live 09/04/2024 Education Answer Date Recorded What is the highest level of school you have completed or the highest degree you have received? 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 It is not a comprehensive summary, and has not been verified by the patient. The Appointment Triage Team does not establish a relationship with the patient, nor manage the patient's care outside of an initial review for the purposes of pre-appointment triage. Summary Hernandez Samayoa is internally referred by SAVANAH GONZALEZ for clinical question: CHIQUITA GONZALEZ Request Surgery: Cystoscopy with resection bladder tumor Surgery Date: 10/11/24 Per ANE CARLOS: Further Recommendations: Cardiology CARLOS Consult ordered given the patients increasingfrequency of rest and exertional chest pain. 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 We willproceed with medical therapy for chronic stable CAD. HTN CVA CEA DVT PE Bladder Mass Pertinent Testing/Consults OSM TTE 07/15/23 1. Normal left ventricular size, normal wall thickness, normal global systolic function, calculatedEF of 70 %. 2. The aortic valve is sclerotic, no stenosis and no regurgitation. 3. The mitral valve is sclerotic, trace mitral regurgitation. 4. The ascending aorta is dilated with a maximal diameter of 4.4 cm. 5. The aortic sinus is dilated with a maximal diameter of 3.8 cm. Additional OSM needed? No documented in this encounter Plan of Treatment Upcoming Encounters Date Type Department Care Team (Late st Contact Info) Description 11/02/2024 1:00 PM CDT Clinical Support Department of Oncology in [place], [place] [address] [place] [phone] Polo Dwyer M.D. [address] [place] [phone] China Parikh M.S.W., L.I.C.S.W. [address] [place] [phone] 11/12/2024 2:15 PM CDT Office Visit Department of Cardiovascular Medicine in [place], [place] [address] [place] [phone] Elisa Alva M.D. [address] [place] [phone] documented as of this encounter Results * NM Cardiac Perfusion Rest and Stress SPECT (10/09/2024 8:57 AM CDT) 10/09/2024 7:13 AM CDT Narrative SONA PORRAS MERGE - 10/09/2024 10:42 AM CDT See PDF For Result Procedure Note Taina Galloway M.D. - 10/09/2024 See PDF For Result Ab ABBOTT P.A.-C., M.S. [facility] Final Result SONA HERNANDEZ NA documented in this encounter Visit Diagnoses Diagnosis Pain Chest- Primary Pain Chest documented in this encounter Care Teams Director Loan Relationship Specialty Start Date End Date Elsewhere, Pcp PCP - General Internal Medicine 10/09/24 documented as of this encounter
--- OUTSIDE RECORDS SUMMARY | 2024-10-23 15:07 | XMS_ITS | Encounter Summary ---
Author Organization [facility] Address [address] [place] [address] Care Team Providers Care Lubricating Specialist Name Role Phone Elsewhere, Pcp Primary Care Provider Unavailabl e Reason for Visit * Reason Onset Date Comments OPC PROC 10/09/2024 Encounter Details Date Type Department Care Team (Late st Contact Info) Description 10/09/2024 Clinical Communication Department of Urology in [place], [place] [address] [place] [phone] Braulio Martins OPC PROC Social History Tobacco Use Types Packs/Day Years Used Date Smoking Tobacco: Former Smokeless Tobacco: Never Alcohol Use Standard Drinks/Week Comments Yes 3 (1 standard drink = 0.6 oz pur e alcohol) [facility] Utilities Answer Date Recorded In the past 12 months has [facility] electric, gas, oil, or water [employer] threatened to shut off services in your [...] your living situation today? I have a [facility] place to live 10/09/2024 Education Answer Date Recorded What is the highest level of school you have completed or the highest degree you have received? 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 [address] [place] [phone] China Parikh, M.S.W., L.I.C.S.W. [address] [place] [phone] 11/12/2024 2:15 PM CDT Office Visit Department of Cardiovascular Medicine in [place], [place] [address] [place] [phone] Elisa Alva M.D. [address] [place] [phone] documented as of this encounter Visit Diagnoses Not on filedocumented in this encounter Care Teams Lubricating Specialist Relationship Specialty Start Date End Date Elsewhere, Pcp PCP - General Internal Medicine 10/09/24 documented as of this encounter
--- OUTSIDE RECORDS SUMMARY | 2024-10-23 15:07 | XMS_ITS | Encounter Summary ---
Author Organization [facility] Address [address] [place] [address] Care Team Providers Care Sign Painter Helper Name Role Phone Elsewhere, Pcp Primary Care Provider Unavailabl e Reason for Referral * Outpatient (Routine) - Authorized Specialty Diagnoses / Procedures Referred By Contac t Referred To Contact Cardiovascular Disease Diagnoses Atherosclerotic Heart Disease Of [place] Coronary Artery Without Angina Pectoris Angina Unstable (HCC) Pain Chest Spencer Marroquin M.D. [address] [place] [phone] Phone: tel: fax: Elisa Alva M.D. [address] [place] [phone] Phone: tel: fax: Referral ID Status Reason Start Date Expiration Date V isits Requested Visits Authorized [id number] Authorized 10/11/2024 04/12/2026 1 1 Encounter Details Date Type Department Care Team (Late st Contact Info) Description 10/11/2024 Clinical Communication [facility] [address] [place] [phone] Clari Daniel M.D. [address] [place] [phone] Social History Tobacco Use Types Packs/Day Years Used Date Smoking Tobacco: Former Smokeless Tobacco: Never Alcohol Use Standard Drinks/Week Comments Yes 3 (1 standard drink = 0.6 oz pur e alcohol) [facility] Utilities Answer Date Recorded In [...] living situation today? I have a [facility] place to live 10/09/2024 Education Answer Date Recorded What is the highest level of school you have completed or the highest degree you have received? 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 [address] [place] [phone] China Parikh M.S.W., L.I.C.S.W. [address] [place] [phone] 11/12/2024 2:15 PM CDT Office Visit Department of Cardiovascular Medicine in [place], [place] [address] [place] [phone] Elisa Alva M.D. 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
--- OUTSIDE RECORDS SUMMARY | 2024-10-23 15:07 | XMS_ITS | Encounter Summary ---
Author Organization [facility] Address [address] [place] [address] Care Team Providers Care Shirring Tender Name Role Phone Elsewhere, Pcp Primary Care Provider Unavailabl e Encounter Details Date Type Department Care Team (Late st Contact Info) Description 10/02/2024 Orders Only Department of Urology in [place], [place] [address] [place] [phone] Charla Childress M.D. [address] [place] [phone] Mass Bladder (Primary Dx) Social History Tobacco Use Types Packs/Day Years Used Date Smoking Tobacco: Former Smokeless Tobacco: Never Alcohol Use Standard Drinks/Week Comments Yes 6 (1 standard drink = 0.6 oz pur e alcohol) [facility] Utilities Answer Date Recorded In the past 12 months has [facility] [employer], gas, oil, or water [employer] threatened to shut off services in your [...] your living situation today? I have a [facility] place to live 10/09/2024 Education Answer Date Recorded What is the highest level of school you have completed or the highest degree you have received? 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 [address] [place] [phone] China Parikh M.S.W., L.I.C.S.W. [address] [place] [phone] 11/12/2024 2:15 PM CDT Office Visit Department of Cardiovascular Medicine in [place], [place] [address] [place] [phone] Elisa Alva M.D. [address] [place] [phone] documented as of this encounter Visit Diagnoses Diagnosis Mass Bladder- Primary documented in this encounter Care Teams Shirring Tender Relationship Specialty Start Date End Date Elsewhere, Pcp PCP - General Internal Medicine 10/09/24 documented as of this encounter
--- OUTSIDE RECORDS SUMMARY | 2024-10-23 15:07 | XMS_ITS | Encounter Summary ---
Author Organization [facility] Address [address] [place] [address] Care Team Providers Care Senior Net Developer Name Role Phone Elsewhere, Pcp Primary Care Provider Unavailabl e Encounter Details Date Type Department Care Team (Late st Contact Info) Description 10/02/2024 Results Follow-Up Department of Urology in [place], [place] [address] [place] [phone] Charla Childress M.D. [address] [place] [phone] Bacterial Culture, Aerobic + Susceptibility, Urine, Urinalysis, with Microscopic: Urine, Midstream, Osmolality, Urine, Additional followed-up results: 3 Social History Tobacco Use Types Packs/Day Years Used Date Smoking Tobacco: Former Smokeless Tobacco: Never Alcohol Use Standard Drinks/Week Comments Yes 6 (1 standard drink = 0.6 oz pur e alcohol) [facility] Utilities Answer Date Recorded In the past 12 months has e [employer], gas, oil, or water [employer] threatened to shut off services in your [...] your living situation today? I have a [facility] place to live 09/04/2024 Education Answer Date Recorded What is the highest level of school you have completed or the highest degree you have received? 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 sent at 10/03/2024 7:27 AM CDT ----- Regarding: Cardiac CARLOS Hi team, Any update on CV CARLOS scheduling? Looks like they approved the triage. Thanks, Charla documented in this encounter Plan of Treatment Upcoming Encounters Date Type Department Care Team (Late st Contact Info) Description 11/02/2024 1:00 PM CDT Clinical Support Department of Oncology in [place], [place] [address] [place] [phone] Polo Dwyer M.D. [address] [place] [phone] China Parikh, M.S.W., L.I.C.S.W. [address] [place] [phone] 11/12/2024 2:15 PM CDT Office Visit Department of Cardiovascular Medicine in [place], [place] [address] [place] [address] [place] [phone] Elisa Alva M.D. [address] [place] [phone] documented as of this encounter Visit Diagnoses Not on filedocumented in this encounter Care Teams Senior Net Developer Relationship Specialty Start Date End Date Elsewhere, Pcp PCP - General Internal Medicine 10/09/24 documented as of this encounter
--- OUTSIDE RECORDS SUMMARY | 2024-10-23 15:07 | XMS_ITS | Encounter Summary ---
Author Organization [facility] Address [address] [place] [phone] Care Team Providers Care Sludge Mill Operator Name Role Phone Elsewhere, Pcp Primary Care Provider Unavailabl e Encounter Details Date Type Department Care Team (Late st Contact Info) Description 10/10/2024 Documentation Department of Urology in [place], [place] [address] [place] [phone] Charla Childress M.D. [address] [place] [phone] Social History Tobacco Use Types Packs/Day Years Used Date Smoking Tobacco: Former Smokeless Tobacco: Never Alcohol Use Standard Drinks/Week Comments Yes 3 (1 standard drink = 0.6 oz pur e alcohol) [facility] Utilities Answer Date Recorded In the past 12 months has [facility] [employer], gas, oil, or water [employer] threatened to shut off services in your [...] 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, CIVIL TRANSPORTATION ENGINEER, BERTA) 05/11/2020 Sex and Gender Information Value Date Recorded Sex Assigned at Male 09/04/2024 9:32 AM CDT 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 - 10/10/2024 6:58 AM CDT BRIEF NOTE This is an 78yo male with large bladder mass and bilateral hydronephrosis, found during workup of urinary retention and gross hematuria. There is concern for metastasis given lymphadenopathy seen on his cross sectional imaging. Patient was arranged for TURBT, which was to occur tomorrow 10/11/2024. He has significant cardiac comorbidities. His preoperative workup revealed new chest pain and ultimately was seen by CV who was concerned about unstable angina. Patient was recommended to present to the ER for admission after his appointment yesterday afternoon 10/09/2024. He is currently hospitalized to the CV service. I therefore cancelled his TURBT that was scheduled for 10/11/2024. From a hydronephrosis standpoint, fortunately he has a normal creatinine and there is drainage downto the UVJ bilaterally, at least when we saw him. From a retention standpoint, the catheter should be maintained for now. I will work with our teams to ensure he has as close follow up from a urologic standpoint as possible, but his cardiac issues take priority right now. He does have oncology appointments (urology and medical) slated for 10/17/2024, we likely just need tissue diagnosis to guide treatment. I will touch base with teams and communicate with cardiology if we need anything inpatient. Electronically signed by: Charla Childress MD PGY-3 Urology documented in this encounter Plan of Treatment Upcoming Encounters Date Type Department Care Team (Late st Contact Info) Description 11/02/2024 1:00 PM CDT Clinical Support Department of Oncology in [place], [place] [address] [place] [phone] Polo Dwyer M.D. [address] [place] [phone] China Parikh, M.S.W., L.I.C.S.W. [address] [place] [phone] 11/12/2024 2:15 PM CDT Office Visit Department of Cardiovascular Medicine in [place], [place] [address] [place] [phone] Elisa Alva M.D. [address] [place] [phone] documented as of this encounter Visit Diagnoses Not on filedocumented in this encounter Care Teams Sludge Mill Operator Relationship Specialty Start Date End Date Elsewhere, Pcp PCP - General Internal Medicine 10/09/24 documented as of this encounter
--- OUTSIDE RECORDS SUMMARY | 2024-10-23 15:08 | XMS_ITS | Encounter Summary ---
Author Organization [facility] Address [address] [place] [address] Care Team Providers Care Therapist Radiation Name Role Phone Elsewhere, Pcp Primary Care Provider Unavailabl e Encounter Details Date Type Department Care Team (Late st Contact Info) Description 08/14/2024 Orders Only Department of Urology in [place], [place] [address] [place] [phone] [facility], Provider, MD [facility] Social History Tobacco Use Types Packs/Day Years Used Date Smoking Tobacco: Former Smokeless Tobacco: Never Hunger Vital Sign Answer Date Recorded Within [...] things needed for daily living? No 05/11/2020 Education Answer Date Recorded What is the highest level of school you have completed or the highest degree you have received? 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 [address] [place] [phone] China Parikh M.S.W., L.I.C.S.W. [address] [place] [phone] 11/12/2024 2:15 PM CDT Office Visit Department of Cardiovascular Medicine in [place], [place] [address] [place] [phone] Elisa Alva M.D. [address] [place] [phone] documented as of this encounter Results * [...] 08/16/2024 10:57 AM CDT DTL Predicted Range 3023-27700 mg/24 h 08/16/2024 10:57 AM CDT DTL Comment Micro done on <2.5 mL 08/16/2024 9:24 AM CDT DTL Urine (Urine, Indwelling Catheter) 08/16/2024 8:04 AM CDT 08/16/2024 8:56 AM CDT us Callum Marcos M.D. LAB URINE ORDERABLES Final Result [facility] [address] [place] [address], [facility] [address] [place] [address] documented in this encounter Visit Diagnoses Diagnosis Retention Urinary documented in this encounter Care Teams Therapist Radiation Relationship Specialty Start Date End Date Elsewhere, Pcp PCP - General Internal Medicine 10/09/24 documented as of this encounter
--- OUTSIDE RECORDS SUMMARY | 2024-10-23 15:08 | XMS_ITS | Encounter Summary ---
Author Organization [facility] Address [address] [place] [id number] Care Team Providers Care Ground Intelligence Officer Name Role Phone Elsewhere, Pcp Primary Care Provider Unavailabl e Encounter Details Date Type Department Care Team (Late st Contact Info) Description 10/11/2024 Orders Only Department of Urology in [place], [place] [address] [place] [phone] Charla Childress M.D. [address] [place] [phone] Social History Tobacco Use Types Packs/Day Years Used Date Smoking Tobacco: Former Smokeless Tobacco: Never Alcohol Use Standard Drinks/Week Comments Yes 3 (1 standard drink = 0.6 oz pur e alcohol) [facility] Utilities Answer Date Recorded In the past 12 months has [facility] [employer], gas, oil, or water [employer] threatened to shut off services in your [...] your living situation today? I have a [facility] place to live 10/09/2024 Education Answer Date Recorded What is the highest level of school you have completed or the highest degree you have received? 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 [address] [place] [phone] China Parikh M.S.W., L.I.C.S.W. [address] [place] [phone] 11/12/2024 2:15 PM CDT Office Visit Department of Cardiovascular Medicine in [place], [place] [address] [place] [phone] Elisa Alva M.D. [address] [place] [phone] documented as of this encounter Visit Diagnoses Not on filedocumented in this encounter Care Teams Ground Intelligence Officer Relationship Specialty Start Date End Date Elsewhere, Pcp PCP - General Internal Medicine 10/09/24 documented as of this encounter
--- OUTSIDE RECORDS SUMMARY | 2024-10-23 15:08 | XMS_ITS | Clinical Summary ---
Author Organization [facility] Address [address], [place] [address] Care Team Providers Care Multiple Spindle Screw Machine Operator Name Role Phone Osorio Galvan MD Primary Care Provider Source Comments You are receiving this document as you are listed as the primary care provider,follow-up provider, or the patient has been referred to you for consultation.This is in compliance with the Medicare and[facility] EHR Incentive Program,which states Providers who transition their patient to another setting of careor provider of care or refers their patient to another provider of care shouldprovide summary care record for each transition of care or referral. [employer] Allergies Active Allergy Reactions Criticality Noted Date [...] shows severe OM1 (small) and distal RCA SURVEYOR GEODETIC. We will proceed with medical therapy for [...] 06/30/2021, 12/24/2020, Additional history exists Influenza Vaccine (#1) 2024 2, 12/24/2020, 12/06/2019, Additional history exists Pneumococcal Vaccine 50+ Yrs Completed 03/27/2018, 05/24/2016 Zoster/Shingles Vaccine Completed 07/06/19 19, 06/26/2018, 04/19/2018 HepA Vaccine Aged Out No [...] complete this topic Insurance MEDICARE Care Teams Multiple Spindle Screw Machine Operator Relationship Specialty Start Date End Date Osorio [place] [address] PCP - General Family Practice 12/14/21
--- OUTSIDE RECORDS SUMMARY | 2024-10-23 15:09 | XMS_ITS | Clinical Summary ---
Author Organization [facility] Address [address] [place] [address] Care Team Providers Care Radiation Control Worker Name Role Phone Elsewhere, Pcp Primary Care Provider Unavailabl e Source Comments Patient records contain information from all sites at [facility]. For routine questions regarding patient records, call [phone] during business hours, M-F 8:00 AM - 5:00 PM Central Time. Record requests for emergency care only can be directed to [phone] at any time.[facility] Allergies Active Allergy Reactions Criticality Noted Date Comments Atorvastatin Myalgia 05/06/2014 Citalopram Tinnitus 01/16/2020 Medications * This document contains information received from the source organization and may not represent a complete record from that organization. rosuvastatin (CRESTOR) 20 mg tablet Take 20 mg by mouth at bedtime. Active nitroglycerin (NITROSTAT) 0.[address] 0.4 mg under the tongue every 5 (five) minutes as needed for chest pain (Max 3 doses). If no relief 5 minutes after the 1st dose, seek medical attention immediately. May take up to 2 additional doses if needed. Active metoprolol succinate (TOPROL-XL) 25 mg 24 hr tablet Take 25 mg by mouth daily. Active finasteride (PROSCAR) 5 mg tablet Take 1 tablet (5 mg total) by mouth daily. 30 tablet 021 Active aspirin [address] tablet Take 1 tablet (81 mg total) by mouth daily. 90 tablet 3 021 Active Additional Information Patient not taking.Reported on 09/27/2024 cyanocobalami n (Vitamin B-12) 1,000 mcg/mL injection Inject 1,000 mcg intramuscularly every 30 (thirty) days. 2025 Active OLANZapine (ZyPREXA) 2.5 mg tabletIndicat ions:Malignan t Neoplasm Of Bladder (HCC) Take 1 tablet (2.5 mg total) by mouth at bedtime as needed (nausea, vomiting). May take dose early if needed. 30 tablet 3 2025 Active prochlorperaz ine (Compazine) 10 mg tabletIndicat ions:Malignan t Neoplasm Of Bladder (HCC) Take 1 tablet (10 mg total) by mouth every 6 (six) hours as needed for nausea or vomiting. 30 tablet 3 2025 Active ondansetron (Zofran) 8 mg tabletIndicat ions:Malignan t Neoplasm Of Bladder (HCC) Take 1 tablet (8 mg total) by mouth every 8 (eight) hours as needed for nausea or vomiting (unrelieved by prochlorperazine). 30 tablet 3 2025 Active triamcinolone (Kenalog) 0.1 % lotionIndicat ions:Malignan t Neoplasm Of Bladder (HCC) Apply 1 Application topically 2 (two) times a day as needed (Rash, Itching). 180 mL 3 Active hydrOXYzine (Atarax) 25 mg tabletIndicat ions:Malignan t Neoplasm Of Bladder (HCC) Take 1 tablet (25 mg total) by mouth 3 (three) times a day as needed for itching. 30 tablet 3 Active cholecalcifer ol, vitamin D3, 25 mcg (1,000 Unit) tablet Take 1,000 Units by mouth daily. 017 2024 Discontinued valACYclovir (VALTREX) 1000 mg tablet Take 1 g by mouth as needed. 020 2024 Discontinued zinc chelated 50 mg tablet tablet Take 50 mg by mouth daily. 2024 Discontinued pyridoxine, vitamin B6, (VITAMIN B6) 25 mg tablet Take 25 mg by mouth daily. 020 2024 Discontinued ferrous sulfate 325 mg (65 mg iron) DR tablet Take 325 mg by mouth daily. 021 2024 Discontinued sennosides-do cusate sodium (SENOKOT-S) 8.6-50 mg per tablet Take 1 tablet by mouth 2 (two) times a day. 021 2024 Discontinued apixaban (ELIQUIS) 2.5 mg tablet Take 2.5 mg by mouth. 021 2024 Discontinued VITAMIN B COMPLEX ORAL Take 1 tablet by mouth. 2024 Discontinued sennosides (SENOKOT) 8.6 mg tablet Take 8.6 mg by mouth. 2024 Discontinued sulfamethoxaz ole-trimethop rim (Bactrim DS) 800-160 mg per tabletIndicat ions:Mass Bladder Take 1 tablet by mouth 2 (two) times a day for 3 days. Take for 3 days before surgery 6 tablet 025 2024 Active Problems Problem Noted Date Diagnosed Date Other Press Writer Current Drug Therapy 10/17/2024 Medication Therapy Intermediate Not Anticoagulant 0 10/17/2024 Intermediate Current Drug Therapy, Chemotherapy Angina Unstable 10/09/2024 Pain Chest 10/09/2024 Malignant Neoplasm Of Bladder 09/04/2024 Cancer Staging:Clinical:Stage CHANTEL(cT3, pM1a) - Signed by Alisa Menjivar M.D. 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 We will proceed with medical therapy for chronic stable CAD. Hyperlipidemia 02/28/2012 Encounters * This document contains information received from the source organization and may not represent a complete record from that organization. Date Type Department Care Team Description 10/23/2024 Clinical Communication Department of Oncology in [place], [place] [address] [place] [phone] Alisa Menjivar M.D. Order Request 10/17/2024 1:20 PM CDT Comprehensive Visit Department of Oncology in [place], [place] [address] [place] [phone] Alisa Menjivar M.D. Malignant Neoplasm Of Bladder (HCC) (Primary Dx); Other Intermediate Current Drug Therapy; Medication Therapy Press Writer Not Anticoagulant; Intermediate Current Drug Therapy, Chemotherapy 10/17/2024 9:21 AM CDT - 10/17/2024 11:59 PM CDT Hospital Encounter Department of Laboratory Medicine and Pathology, [facility], in [place], [place] [address] [place] [phone] Shyam Musa M.D. Mass Bladder Discharge Disposition: Home or Self Care 10/17/2024 8:30 AM CDT Comprehensive Visit Department of Urology in [place], [place] [address] [place] [phone] Pema Rojas M.D. Malignant Neoplasm Of Bladder (HCC) (Primary Dx) 10/13/2024 Documentation Department of Urology in [place], [place] [address] [place] [phone] Charla Childress M.D. 10/13/2024 Orders Only Department of Urology in [place], [place] [address] [place] [phone] Charla Childress M.D. 10/11/2024 Orders Only Department of Urology in [place], [place] [address] [place] [phone] Charla Childress M.D. 10/11/2024 Clinical Communication [facility] [address] [place] [phone] Clari Daniel M.D. 10/10/2024 10:25 PM CDT Ancillary Procedure Department of Cardiology 10/10/2024 1:26 PM CDT - 10/10/2024 2:41 PM CDT Surgery Division of Cardiovascular Diseases in [place], [place] [address] [place] [phone] Grey Gomez M.D. CORONARY ANGIOGRAPHY 10/10/2024 Documentation Department of Urology in [place], [place] [address] [place] [phone] Charla Childress M.D. 10/09/2024 5:00 PM CDT - 10/12/2024 4:06 PM CDT Hospital Encounter [facility], [facility], Fifth Floor [address] [place] [phone] Zuri Harvey PTee.-Shayna., M.S. Spencer Marroquin M.D. Terry Oliveira M.D., Ph.D. Iva Ascencio M.D., Ph.D. Angina Unstable (HCC) (Primary Dx); Pain Chest; Decline Functional Status [R53.81]; Malaise [R53.81] Discharge Disposition: Home or Self Care 10/09/2024 4:15 PM CDT Office Visit Department of Cardiovascular Medicine in [place], [place] [address] [place] [phone] Elisa Alva M.D. Preoperative Exam (Primary Dx); Preoperative Examination Cardiovascular; Hyperlipidemia; Embolus Pulmonary Personal History; Preanesthetic Medical Exam; Angina Unstable (HCC) 10/09/2024 7:13 AM CDT - 10/09/2024 4:59 PM CDT Hospital Encounter Department of Radiology, [facility], in [place], [place] [address] [place] [phone] Ab Shabazz MPAS, P.A.-C., M.S. Discharge Disposition: Home or Self Care 10/09/2024 7:13 AM CDT - 10/09/2024 4:59 PM CDT Hospital Encounter Department of Cardiovascular Diseases in [place], [place] [address] [place] [phone] Ab Shabazz MPAS, P.A.-C., M.S. Discharge Disposition: Home or Self Care 10/09/2024 7:00 AM CDT - 10/09/2024 7:12 AM CDT Hospital Encounter Department of Radiology, [facility], in [place], [place] [address] [place] [phone] Ab Shabazz MPAS, P.A.-C., M.S. Pain Chest Discharge Disposition: Home or Self Care 10/09/2024 Clinical Communication Department of Urology in [address] [phone] Braulio Martins OPC PROC 10/02/2024 Orders Only Department of Urology in [address] [phone] Charla Childress M.D. Mass Bladder (Primary Dx) 10/02/2024 Results Follow-Up Department of Urology in [address] [phone] Charla Childress M.D. Bacterial Culture, Aerobic + Susceptibility, Urine, Urinalysis, with Microscopic: Urine, Midstream, Osmolality, Urine, Additional followed-up results: 3 10/01/2024 2:30 PM CDT - 10/01/2024 11:59 PM CDT Hospital Encounter Department of Radiology, [facility], in [place], [place] [address] [place] [phone] Shyam Musa M.D. Mass Bladder Discharge Disposition: Home or Self Care 10/01/2024 11:00 AM CDT Comprehensive Visit Preoperative Evaluation Center in [place], [place] [address] [place] [phone] Shyam Musa M.D. Hebl, James R, M.D. 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 Mass Bladder; Hematuria Discharge Disposition: Home or Self Care 10/01/2024 Clinical Communication Department of Cardiovascular Medicine in [address] [phone] Metal Box MakerMarco Antonio M.D. Triage (Dia, Anesthesia Preop # [id number]) 09/27/2024 3:15 PM CDT Clinical Communication Virtual Review in [address] [phone] 09/05/2024 Orders Only Preoperative Evaluation Center in [address] [phone] Chintan Stevens APRN, C.N.P., M.S.N. Preanesthetic Medical Exam (Primary Dx) 09/04/2024 10:00 AM CDT Telemedicine Department of Urology in [address] [phone] Callum Marcos M.D. Mass Bladder (Primary Dx); Hematuria 09/03/2024 2:30 PM CDT Procedure visit Department of Urology in [address] [phone] Shyam Musa M.D. Schaffer, Heidi L, APRN, C.N.P., D.N.P. Hematuria 09/03/2024 9:39 AM CDT - 09/03/2024 11:59 PM CDT Hospital Encounter Department of Radiology, [facility], in [place], [place] [address] [place] [phone] Shyam Musa M.D. Hematuria Discharge Disposition: Home or Self Care 08/21/2024 Orders Only Department of Urology in [place], [place] [address] [place] [phone] Shyam Musa M.D. 08/16/2024 10:30 AM CDT Lab Department of Urology in [place], [place] [address] [place] [phone] Shyam Musa M.D. Dudley, Kathleen A, R.N. Hematuria 08/16/2024 9:30 AM CDT Comprehensive Visit Department of Urology in [place], [place] [address] [place] [phone] Callum Marcos M.D. Hematuria (Primary Dx) 08/16/2024 7:30 AM CDT Lab Department of Urology in [place], [place] [address] [place] [phone] Callum Marcos M.D. McKay, Roxane M, L.P.N. Retention Urinary (Primary Dx) 08/14/2024 Orders Only Department of Urology in [place], [place] [address] [place] [phone] [facility], Provider, Retention Urinary from Last 3 Months Immunizations Immunization Administration Dates Next Due Influenza, Unspecified 01/02/2013 Social History Tobacco Use Types Packs/Day Years Used Date Smoking Tobacco: Former Smokeless Tobacco: Never Alcohol Use Standard Drinks/Week Comments Yes 3 (1 standard drink = 0.6 oz pur e alcohol) [facility] Utilities Answer Date Recorded In the past 12 months has e [employer], gas, oil, or water [employer] threatened to shut off services in your [...] your living situation today? [facility] 10/09/2024 Education Answer Date Recorded What is the highest level of school you have completed or the highest degree you have received? 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 [address] [place] [phone] China Parikh M.S.W., L.I.C.S.W. [address] [place] [phone] 11/12/2024 2:15 PM CDT Office Visit Department of Cardiovascular Medicine in [place], [place] [address] [place] [phone] Elisa Alva M.D. [address] [place] [phone] Health Maintenance Due Date Last Done Comments RSV vaccine - (32-36 weeks) or 60+ years (1 - 1-dose 75+ series) 10/27/2018 Depression Screening (Annual PHQ-2) 03/28/2024 Fall Risk Screen (Annual) 03/28/2024 Influenza Vaccine (#1) 2024 , 01/11/2023, 12/28/2021, Additional history exists Glucose Test for Med Monitoring 10/17/2025 10/17/2024, 10/12/2024, 10/11/2024, Additional history exists Office Visit for Blood Pressure Check / Re-check 10/17/2025 10/17/2024 DTaP,Tdap,and Td Vaccines (3 - Td or Tdap) 04/10/2032 04/10/2022, 07/28/2012 Pneumococcal vaccine (50+ years) Completed 03/27/2018, 05/24/2016 Zoster Vaccines Completed 07/05/2018, 04/19/2018 Abdominal Aortic Aneurysm (AAA) Screen Discontinued 04/11/2020 COVID-19 Vaccine Completed 07/18/2024, , 05/31/2023, Additional history exists IPV Vaccines Aged Out No longer eligi ble based on patient's age to complete this topic Procedures Procedure Name Priority Date/Time Associated Diagnosis Comments CBC WITH DIFFERENTIAL, B Routine 10/17/2024 9:48 AM CDT Mass Bladder COMPREHENSIVE METABOLIC PANEL, S/P Routine 10/17/2024 9:48 AM CDT Mass Bladder RENAL FUNCTION PANEL, S Routine 10/13/19 1:08 PM CDT CBC WITHOUT DIFFERENTIAL, B Routine 10/12/2024 1:[address] LYMPH NODE BIOPSY RAD - Routine (most inpatients and all outpatients) 10/11/2024 12:52 PM CDT CYTOLOGY FINE NEEDLE ASPIRATION (INCLUDES CORE BIOPSIES Timed 10/11/2024 11:32 AM CDT Angina Unstable (HCC) Pain Chest RENAL FUNCTION PANEL, S Routine 10/12/19 8:38 AM CDT CBC WITHOUT DIFFERENTIAL, B Routine 10/11/2024 8:38 AM CDT CARDIOLOGY ENCOUNTER IMAGE EXAM Routine 10/10/2024 10:25 PM CDT CARDIAC CATHETERIZATION Routine 10/11/19 4:18 PM CDT Pain Chest MICROSCOPIC MANUAL Routine 10/10/2024 5: 41 AM CDT DIPSTICK, U Routine 10/10/2024 5:41 AM CDT PH, U Routine 10/10/2024 5:41 [...] AM CDT RENAL FUNCTION PANEL, S Timed 10/10/19 11:30 PM CDT TROPONIN T, 5TH GEN, P Timed 11:30 PM CDT CBC WITHOUT DIFFERENTIAL, B Timed 10/09/2024 11:30 PM CDT TYPE AND SCREEN Routine 10/09/2024 11:25 PM CDT ECG Routine 10/09/2024 10:00 PM CDT ECG Routine 10/09/2024 8:57 PM CDT TROPONIN T, 2H/6H REFLEX, 5TH GEN, P Timed 10/09/2024 7:33 PM CDT DX CHEST AP OR PA AND LATERAL 2 VIEWS RAD - Semiurgent (Fast; most ED patients; some inpatients) 10/09/2024 5:47 PM CDT ACTIVATED PARTIAL THROMBOPLASTIN TIME (APTT), P STAT 10/09/2024 5:25 PM CDT PROTHROMBIN TIME (PT), P STAT 10/09/2024 5:25 PM CDT TROPONIN T, BASELINE, 5TH GEN, P STAT 10/09/2024 5:25 PM CDT BASIC METABOLIC PANEL, S/P STAT 10/09/2024 5:25 PM CDT CBC WITH DIFFERENTIAL, B STAT 10/09/2024 5:25 PM CDT ECG STAT 10/09/2024 5:12 PM CDT ECG Routine 10/09/2024 2:48 PM CDT Preanesthetic Medical Exam NM CARDIAC PERFUSION REST AND STRESS SPECT RAD - Routine (most inpatients and all outpatients) 10/09/2024 8:57 AM CDT Pain Chest CT CHEST WITHOUT IV CONTRAST RAD - Routine (most inpatients and all outpatients) 10/01/2024 2:54 PM CDT Mass Bladder MICROSCOPIC MANUAL Routine 10/01/2024 1: 14 PM CDT PH, U Routine 10/01/2024 1:14 PM CDT DIPSTICK, U Routine 10/01/2024 1:14 PM CDT OSMOLALITY, U Routine 10/01/2024 1:14 PM CDT URINALYSIS WITH MICROSCOPIC Routine 10/01/2024 1:14 PM CDT Mass Bladder BACTERIAL CULTURE, AEROBIC + SUSC, URINE Routine 10/01/2024 1:14 PM CDT Mass Bladder Hematuria ECG Routine 10/01/2024 12:06 PM CDT Preanesthetic Medical Exam [place] CYSTOURETHROSCOPY Routine 09/03/2024 2:[address] UROGRAM WITHOUT AND WITH IV CONTRAST RAD - Routine (most inpatients and all outpatients) 09/03/2024 10:50 AM CDT Hematuria CYTOLOGY NON-TELECOMMUNICATION EQUIPMENT REPAIRER (SCHEDULED) Routine 08/16/2024 11:27 AM CDT Hematuria DIPSTICK, U Routine 08/16/2024 8:04 AM CDT [place] OSMOLALITY ASSAY URINE Routine 08/16/2024 8:04 AM CDT PH, RANDOM, U Routine 08/16/2024 8:04 AM CDT MICROSCOPIC MANUAL Routine 08/16/2024 8: 04 AM CDT URINALYSIS WITH MICROSCOPIC Routine 08/16/2024 8:04 AM CDT Retention Urinary OUTSIDE CT BODY Routine 08/12/2024 12:[address] ABDOMEN PELVIS WITH IV CONTRAST RAD - Semiurgent (Fast; most ED patients; some inpatients) 04/11/2020 9:32 PM 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 Hemoglobin 10.0(L) 13.2 - 16.6 g/dL 10/17/2024 [...] 9:48 AM CDT 10/17/2024 10:13 AM CDT us Shyam Musa M.D. LAB BLOOD ADD-ON Final Result [facility] [address] [place] [address], [facility] DTL [facility] [address] [place], [place] [phone] [place] [address] [address] [place] [address] * (ABNORMAL) Comprehensive Metabolic Panel (10/17/2024 9:48 AM CDT) Pathologist [facility] Potassium, S 4.9 3.6 - 5.2 mmol/L [...] Musa M.D. LAB BLOOD ADD-ON Final Result [facility] [address] [place] [address], [place] D[facility] [address] [place] [address] * (ABNORMAL) Renal Function Panel (10/12/2024 1:08 PM CDT) Only the most recent of3 resultswithin the time period is included. Potassium, S 5.0 3.6 - 5.2 mmol/L [...] M.D. LAB BLOOD ADD-ON Final Res ult [facility] [address] [place] [address], [place] [facility] [address] [place] [address] * (ABNORMAL) CBC without Differential (10/12/2024 1:08 PM CDT) Only the most recent of3 resultswithin the time period is included. Hemoglobin 10.4(L) 13.2 - 16.6 g/dL 10/12/2024 [...] M.D. LAB BLOOD ADD-ON Final Res ult [facility] [address] [place] [address], [facility] [address] [place] [address] * CT Lymph Node Biopsy (10/11/2024 12:52 [...] series 302, image 166. A total of [id number] cores were obtained from the lymph node [...] series 302, image 166. A total of [id number] cores were obtained from the lymph node [...] features. Immunohistochemic al stains were performed at [facility] (block A1). 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 Digital imaging was used in the diagnostic assessment of this case. (A) 10/15/2024 12:58 PM CDT DTL Tissue (Pelvis, Left) 10/11/2024 11:32 AM CDT us Mila Burgess M.D. LAB SURG PATH ORDERABLES F inal Result [facility] [address] [place] [address], [facility] DTL [address] [facility] [address] [place] [address] * Specimen-Cardiology Encounter Image Exam (10/10/2024 10:25 [...] IMAGING PROCE DURES Final Result IIMS NA * CORONARY ANGIOGRAPHY (10/10/2024 4:18 PM CDT) Anatomical Region Laterality Modality X-Ray Angiograph y 10/10/2024 3:43 PM CDT Narrative 10/10/2024 4:58 PM CDT For the complete report, see the Order-Level Documents. PROCEDURE TYPES 1. CORONARY ANGIOGRAPHY FINAL DIAGNOSIS 1. Severe coronary artery atherosclerosis 2. INSPECTOR CHIEF (Chronic Total Occlusion) 3. Coronary artery collateral [...] disease as well. There is an RCA INSPECTOR CHIEF with good left to right collaterals. Discussed [...] left anterior descending artery and second septal handbag designer. The right posterolateral segment is 99% obstructed [...] DIAGNOSIS 1. Severe coronary artery atherosclerosis 2. INSPECTOR CHIEF (Chronic Total Occlusion) 3. Coronary artery collateral [...] LCx diseaseas well. There is an RCA INSPECTOR CHIEF with good left to right collaterals.Discussed with [...] distal left anterior descendingartery and second septal handbag designer. The right posterolateral segment is 99% obstructed [...] CATH PROCEDURES Fi nal Result * (ABNORMAL) Dipstick, Urine (10/10/2024 5:41 AM CDT) Only the most recent of3 resultswithin the time period is included. Hemoglobin, QL, U Large(A) Negative 10/10/2024 6:11 [...] M.D. LAB URINE ORDERABLES Final Resu lt [facility] [address] [place] [address], [facility] [address] [place] [address] * (ABNORMAL) Microscopic Manual (10/10/2024 5:41 AM CDT) Only the most recent of3 resultswithin the time period is included. Microscopy Abnormal 10/10/2024 6:44 AM CDT DTL RBC 11-20(A) <3 /hpf 10/10/2024 6:44 AM CDT DTL Dysmorphic RBC <25 <25 % 10/10/2024 6:44 AM CDT DTL WBC 4-10(A) /hpf 10/10/2024 6:44 AM CDT DTL Comment: ----REFERENCE VALUE---- <4 (Males) <11 (Females) Bacteria Present(A) 10/10/2024 6:44 AM CDT DTL Urine 10/10/2024 5:41 AM CDT 10/10/2024 6:08 AM CDT us Mario Musa M.D. LAB URINE ORDERABLES Final Resu lt Performing Organization Address City/[facility]/ZIP Co de Phone Number [facility] [address] [place] [address] * pH, Urine (10/10/2024 5:41 AM CDT) Only the most recent of2 resultswithin the time period is included. pH, U 5.8 4.5 - 8.0 10/10/2024 6:1 9 AM CDT DTL Urine 10/10/2024 5:41 AM CDT 10/10/2024 5:58 AM CDT us Mario Musa M.D. LAB URINE ORDERABLES Final Resu lt [facility] [address] [place] [address], [facility] [address] [place] [address] * Osmolality, Urine (10/10/2024 5:41 AM CDT) Only the most recent of2 resultswithin the time period is included. Osmolality, U 215 150 - 1150 mOsm/kg 10/10/2024 6:19 AM CDT DTL Urine 10/10/2024 5:41 AM CDT 10/10/2024 5:58 AM CDT Mario Musa M.D. LAB URINE ORDERABLES Final Resu lt Performing Organization Address [facility]/ZIP Co de Phone Number [facility] [address] [place] [address], [facility] [address] [place] [address] * (ABNORMAL) Urinalysis, with Microscopic: Urine, Catheter (10/10/2024 5:41 AM CDT) Only the most recent of3 resultswithin the time period is included. Source Urine, Urine, Catheter 10/10/2024 5:58 AM [...] URINE ORDERABLES Final Result Performing Organization Address City/[facility] [place]/ZIP Co de Phone Number [facility] [address] [place] [address], [facility] DTL [facility] [address] [place] [address] * ECG 12 Lead (10/10/2024 4:13 AM CDT) Only the most recent of6 resultswithin the time period is included. Ventricular Rate ECG/Min 58 BPM MUSE [place] Interval 168 ms MUSE QRSD Interval 76 ms MUSE QT Interval 418 ms MUSE QTC Interval 410 ms MUSE P Radnor 79 degrees MUSE R Radnor 24 degrees MUSE T Wave Radnor 17 degrees MUSE 10/10/2024 4:13 AM CDT [...] and management can be found on the [employer] site. Link [email or web address]/topic/clinical-answers/[email or web address]/[email or web address] Procedure Note Judy Ibrahim M.D. - 10/10/2024 [...] thrombosis and management can be found on the[employer] site. [email or web address]/topic/clinical-answers/cnt-[email or web address]/[email or web address] 1724 IMPRESSION: 1. Negative for acute DVT in the bilateral lower extremities. 2. 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 Mila Burgess M.D. [facility] US PROCEDURES Final Re sult * US [...] masslike thickening of the wall with intraluminal Bryant catheter. Decompressed lumen. Procedure Note Judy Ibrahim [...] US PROCEDURES Final Re sult * (ABNORMAL) Troponin T, 5th Generation (10/09/2024 11:30 PM CDT) [facility] Troponin T, 5th gen 31(H) <=15 ng/L 10/09/2024 11:53 PM CDT STMA Blood (Blood, Venous) 10/09/2024 11:30 PM CDT 10/09/2024 11:37 PM CDT Mila Burgess M.D. LAB BLOOD ADD-ON Final Res ult Performing Organization Address [facility] [place]/ZIP Co de Phone Number [facility] [address] STMA [facility] [address] [place] [address] * Type and Screen (with Reflex Antibody ID) (10/09/2024 11:25 PM CDT) [facility] ABORh O Neg Not applicable 10/10/2024 1:17 AM CDT STRM Antibody Screen Negative Negative 10/10/2024 1:30 AM CDT STRM Type & Screen Expiration 10/12/2024 23:59 10/10/2024 1:17 AM CDT STRM Testing Location [place] DEFAULT 10/10/2024 12:50 AM CDT STRM Blood (Blood, Venous) 10/09/2024 11:25 PM CDT 10/10/2024 12:50 AM CDT Result [facility] Mila Burgess M.D. LAB BLOOD BANK TEST ORDERA BLES Final Result Performing Organization Address [facility] [place]/ZIP Co de Phone Number [facility] [address] [place] [address], [facility] STRM [facility] [address] [place] [address] * (ABNORMAL) Troponin T, 2 Hour with [...] M.S. LAB BLOOD TROPONIN Fi nal Result [facility] [address] [place] [address], [facility] [address] [place] [address] * DX Chest AP or PA and [...] DIAGNOSTIC IMAGIN G PROCEDURES Final Result * (ABNORMAL) Troponin T, Baseline with 2 Hour/6 Hour Reflex Biomarker Panel (10/09/2024 5:25 PM CDT) Troponin T, Baseline, 5th gen 33(H) <=15 ng/L 10/09/2024 6:22 PM CDT [facility]MA Blood (Blood, Venous) 10/09/2024 5:25 PM CDT 10/09/2024 5:31 PM CDT Zuri Harvey P.A.-C., M.S. LAB BLOOD TROPONIN Fi nal Result Performing Organization Address City/[facility] [place]/ZIP Co de Phone Number [facility] [address] [place] [address] * APTT (Activated Partial Thromboplastin Time) (10/09/2024 5:25 PM CDT) [facility] Activated Partial Thrombopl Time, P 28 25 - 37 sec 10/09/2024 5:[address] [facility] Blood (Blood, Venous) 10/09/2024 5:25 PM CDT 10/09/2024 5:31 PM CDT us Zuri Harvey P.A.-C., M.S. LAB BLOOD ADD-ON Gabriella l Result [facility] [address] [place] [address] * Prothrombin Time (PT) (10/09/2024 5:25 PM CDT) Pathologist [facility] Prothrombin Time, P 12.4 9.4 - [...] M.S. LAB BLOOD ADD-ON Gabriella l Result [facility] [address] [place] [address], [facility] [address] [place] [address] * (ABNORMAL) Basic Metabolic Panel (10/09/2024 5:25 PM CDT) Pathologist [facility] Potassium, P 4.8 3.6 - 5.2 mmol/L [...] ADD-ON Gabriella l Result Performing Organization Address City/[facility] [place]/ZIP Co de Phone Number [facility] [address] [place] [address], [facility] [address] [place] [address] * [place] Cardiac Perfusion Rest and Stress SPECT (10/09/2024 8:57 AM CDT) 10/09/2024 7:13 AM CDT Narrative CV MERGE - 10/09/2024 10:42 AM CDT See PDF For Result Procedure Note Taina Galloway M.D. - 10/09/2024 See PDF For Result Ab ABBOTT P.A.-C., M.S. IMG NM PROCE PIEDADES Final Result Performing Organization Address [facility] [place]/[facility] Co de Phone Number [facility] MERGE NA * CT Chest without IV Contrast (10/01/2024 [...] M.D. IMG CT PROCEDURES Final Resul t * (ABNORMAL) Bacterial Culture, Aerobic + Susceptibility, Urine (10/01/2024 1:14 PM CDT) Urine Culture Multiple organisms >10,000 cfu/mL present suggesting probable contamination (A) 10/02/2024 11:08 AM CDT DTL Urine (Urine, Midstream) 10/01/2024 1:14 PM CDT 10/01/2024 2:46 PM CDT Comment:Specimen Source Site : Urine us Syham Musa M.D. LAB MICROBIOLOGY - GENERAL OR DERABLES Final Result [facility] [address] [place] [address], [place] DTL [facility] [address] [place] [address] * [place] CYSTOURETHROSCOPY (09/03/2024 2:30 PM CDT) Narrative Es Caballero APRN, C.NVivek, Meño.N.P. - 09/03/2024 2:30 PM CDT Es Caballero APRN, C.NVivek, Meño.N.P. 09/03/2024 3:01 PM URO Cystoscopy (general) Performed by: Es Caballero APRN, C.N.PMak, Meño.N.P. Authorized by: Shyam Musa M.D. Care team members present 1. Es Caballero APRN, C.N.P., Meño.N.P. IMPRESSION suspicious mass and hematuria Additional procedures performed: cystoscopy PROCEDURE DETAILS: Blue light imaging agent used: no Fluoroscopy: Fluoroscopic image guidance used to localize target, identify at risk structures, and dynamically used to direct therapy to the target. Image(s) not saved. A flexible cystoscope was inserted through the urethra into the bladder. Cystoscope was removed at the end of procedure. Patient of Dr. Marcos. Evaluation of gross hematuria. CT urogram showed the following: IMPRESSION: 1. Large right lateral to posterior bladder wall mass with extravesicular tumor extension. 2. Bilateral ureteral obstruction by the bladder mass. Otherwise unremarkable upper urinary tracts. 3. 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 A few retrocrural lymph nodes are also present. The patient was brought to cystoscopy suite and placed in lithotomy position. He was prepped and draped in the standard fashion. After appropriate patient identification and consent was obtained a flexible cystoscope was inserted through the urethra into the bladder. Urethroscopy demonstrated normal-appearing urethra mucosa. Urethral sphincter coapted appropriately. Prostatic urethra was widely patent and showed a wide open bladder neck. Upon entrance into the bladder, madison cystoscopy was attempted to be performed. Secondary to significant hematuria we attempted to siphoned off urine to improve visibility however due to active bleeding this was not possible. Large right bladder wall mass noted, multiple photos taken. Visibility was significantly poor secondary to hematuria. Cystoscope was then removed, patient tolerated the procedure well. IMPRESSION: #1 Large right lateral wall bladder mass #2 Hematuria PLAN: Hemant team to follow up with the patient via video 09/04/2024. Catheter was replaced at the end of our visit. CONSENT Consent obtained: verbal Consent given by: patient The benefits, risks and alternatives to the procedure and the potential need for sedation or anesthesia as well as the names, roles, and responsibilities of healthcare team members performing significant interventional tasks were discussed with the patient and/or decision maker. UNIVERSAL PROTOCOL All relevant documentation and testing were reviewed and available. All required blood products, implants, devices and or special equipment were made available as applicable. Pre-procedure verification was conducted and the correct site was marked if required. A fire risk and smoke assessment were done as applicable. The procedural time-out to verify correct patient, correct side/site, and procedure was conducted prior to performing the procedure and confirmed in a procedural pause. PRE-PROCEDURE DETAILS Procedure purpose: Diagnostic Appropriate hand hygiene, gown, cap, mask, protective eyewear, sterile gloves, skin preparation, sterile drape, and strict aseptic technique were utilized as applicable for the procedure.: yes Site preparation: Povidone-iodine SEDATION / ANESTHESIA Anesthesia method: none POST-PROCEDURE DETAILS Procedure completed successfully: yes Complications: no apparent complications us Shyam Musa M.D. UROLOGY ORDERABLES Final Resu lt * CT Urogram without and with IV Contrast (09/03/2024 10:50 AM CDT) Anatomical Region Laterality Modality Abdomen, Pelvis, Abdominal R ST LOS, Abdominal ARZ LOS, Abdominal FLA LOS N/A Computed Tomograp hy, Computed Tomography Impressions 09/03/2024 11:01 AM CDT 1. Large right lateral to posterior bladder wall mass with extravesicular tumor extension. 2. Bilateral ureteral obstruction by the bladder mass. Otherwise unremarkable upper urinary tracts. 3. 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 A few retrocrural lymph nodes are also present. Narrative 09/03/2024 11:01 AM CDT EXAM: CT UROGRAM WITHOUT AND WITH IV CONTRAST COMPARISON: CT dated 08/12/2024 FINDINGS: 8.8 x 4.5 x 2.8 cm mass involving the right lateral to posterior wall of bladder has slightly increased in size. Extravesicular extension is present right laterally and posteriorly. Both UVJs are obstructed by the mass with moderate degree of pyelocaliectasis and ureterectasis bilaterally. The mass abuts the right anterolateral pelvic side wall (series [id number] image 342). Bryant catheter. Retroperitoneal and bilateral pelvic adenopathy. 1.3 cm centrally necrotic lymph node in the left proximal external iliac chain (image 260). 1.6 cm lymph node in the left distal external iliac chain (image 233). 1.0 cm right common iliac lymph node (image 257). Multiple para-aortic lymph nodes with central hypodensity suggestive of necrosis are noted. For example, a left para-aortic lymph node measures 1.0 cm (image 160). A few retrocrural lymph node with central heterogeneity with the largest measuring 1.1 cm (image 67). No urinary calculi. Kidneys are negative. Moderate degree of pyelocaliectasis and ureterectasis bilaterally. Otherwise upper urinary tracts are unremarkable. No evidence of metastasis in the liver. Adrenal glands, pancreas and spleen are unremarkable. Normal caliber small bowel and colon. Diffuse blastic calcifications. Postoperative changes in the mid to lower lumbar spine. Diffuse degenerative changes in the spine. Bone graft have a site in the right ilium. Procedure Note Ye Gunter M.D. - 09/03/2024 EXAM: CT UROGRAM WITHOUT AND WITH IV CONTRAST COMPARISON: CT dated 08/12/2024 FINDINGS: 8.8 x 4.5 x 2.8 cm mass involving the right lateral to posterior wall ofbladder has slightly increased in size. Extravesicular extension ispresent right laterally and posteriorly. Both UVJs are obstructed by themass with moderate degree of pyelocaliectasis and ureterectasis bilaterally. The mass abuts the rightanterolateral pelvic side wall (series [id number] image 342). Foleycatheter. Retroperitoneal and bilateral pelvic adenopathy. 1.3 cm centrally necroticlymph node in the left proximal external iliac chain (image 260). 1.6 cmlymph node in the left distal external iliac chain (image 233). 1.0 cmright common iliac lymph node (image 257). Multiple para-aortic lymph nodes with central hypodensitysuggestive of necrosis are noted. For example, a left para-aortic lymphnode measures 1.0 cm (image 160). A few retrocrural lymph node withcentral heterogeneity with the largest measuring 1.1 cm (image 67). No urinary calculi. Kidneys are negative. Moderate degree ofpyelocaliectasis and ureterectasis bilaterally. Otherwise upper urinarytracts are unremarkable. No evidence of metastasis in the liver. Adrenal glands, pancreas andspleen are unremarkable. Normal caliber small bowel and colon. Diffuseblastic calcifications. Postoperative changes in the mid to lower lumbar spine. Diffusedegenerative changes in the spine. Bone graft have a site in the rightilium. IMPRESSION: 1. Large right lateral to posterior bladder wall mass with extravesiculartumor extension. 2. Bilateral ureteral obstruction by the bladder mass. Otherwiseunremarkable upper urinary tracts. 3. Extensive óscar metastases in bilateral iliac chains andretroperitoneum. A few retrocrural lymph nodes are also present. Shyam Musa M.D. IMG CT PROCEDURES Final Resul t * (ABNORMAL) Cytology Non-TELECOMMUNICATION EQUIPMENT REPAIRER (Scheduled) (08/16/2024 11:27 AM CDT) (A) 2:52 [...] ORDERABLES Gabriella l Result Performing Organization Address City/[facility] [place]/ZIP Co de Phone Number [facility] [address] [place] [address], [facility] [address] [facility] [address] [place] [address] * Osmolality, Urine (08/16/2024 8:04 AM CDT) Osmolality, U 539 150 - 1150 mOsm/kg 08/16/2024 9:25 AM CDT DTL Urine 08/16/2024 8:04 AM CDT 08/16/2024 8:56 AM CDT us Soft Results Interface LAB URINE ORDERABLES Gabriella l Result Performing Organization Address [facility] [place]/[facility] Co de Phone Number [facility] [address] [place] [address] * pH, Random, Urine (08/16/2024 8:04 AM CDT) pH, Random, U 5.2 4.5 - 8.0 08/16/2024 9:25 AM CDT DT Urine 08/16/2024 8:04 AM CDT 08/16/2024 8:56 AM CDT us Soft Results Interface LAB URINE ORDERABLES Gabriella l Result Performing Organization Address City/[facility] [place]/[facility] Co de Phone Number [facility] [address] [place] [address] * Outside CT Body (08/12/2024 12:45 PM CDT) Narrative IIMS - 08/21/2024 9:49 AM CDT This order [...] System IMG CT PROCEDURES Final R esult IIMS NA * CT Abdomen Pelvis with IV Contrast (04/11/2020 9:32 PM HAZARDOUS MATERIALS DRIVER) Anatomical Region Laterality Modality Abdomen, Pelvis, Abdominal R ST LOS, Abdominal ARZ LOS, Abdominal FLA LOS N/A Computed Tomograp hy, Computed Tomography 04/11/2020 9:41 PM HAZARDOUS MATERIALS DRIVER Impressions 04/11/2020 10:07 PM HAZARDOUS MATERIALS DRIVER 1. No evidence of recent or active hemorrhage within the abdomen or pelvis. 2. Bladder wall thickening and adjacent stranding and mild ureterectasis and periureteral stranding of the lower ureters is nonspecific but can be seen in the setting of cystitis with early ascending infection. 3. Acute pulmonary embolism in the left lower lobe. Narrative 04/11/2020 10:07 PM HAZARDOUS MATERIALS DRIVER EXAM: CT ABDOMEN PELVIS WITH IV CONTRAST [...] lung. Findings were discussed with Dr. Fritz ([phone]) at 10:06 PM on 04/11/2020.. Procedure Note [...] left lowerlung. Findings were discussed with Dr. Fritz ([phone]) at 10:06 PM on04/11/2020.. IMPRESSION: 1. No [...] Recently Relevant to Health Maintenance Insurance MEDICARE AAR Advance Directives For more information, please contact: [phone] * Full Code (Latest Code Status on File) Date Activated Date Inactivated Comments 10/09/2024 9:06 PM 10/12/2024 6:11 PM Question Answer Comments Full Code: Discussed * Full Code Date Activated Date Inactivated Comments 04/12/2020 1:07 PM 04/15/2020 6:07 PM Question Answer Comments Full Code: Discussed 04/12/2020 Care Teams Radiation Control Worker Relationship Specialty Start Date End Date Elsewhere, Pcp PCP - General Internal Medicine 10/09/24
--- OUTSIDE RECORDS SUMMARY | 2024-10-23 15:09 | XMS_ITS ---
Author Organization [facility] Address [address] [place] [address] Care Team Providers Care Elevator Repair Mechanic Name Role Phone Elsewhere, Pcp Primary Care Provider Unavailabl e Active Problems * This document contains information received from the source organization and may not represent a complete record from that organization. 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 We will proceed with medical therapy for chronic stable CAD. Hyperlipidemia 02/28/2012 Current Treatment and Therapy Plans Enfortumab vedotin-ejfv / Pembrolizumab* Plan Start Date:10/16/2024 Plan Provider:Polo Dwyer M.D. Linked Problems Malignant Neoplasm Of Blae r (HCC)Medication Therapy Group Home Not AnticoagulantLong Term Current Drug Therapy, Chemotherapy Treatment Medications Current Day (Day 1 , Cycle 1 - Planned for 10/26/2024) Next Day (Day 8, Cycle 1 - Planned for 11/02/2024) enfortumab vedotin-ejfv (Padcev)enfortumab vedotin-ejfv (Padcev) IVPBpembrolizumab (Keytruda) enfortumab vedotin-ejfv 70 mg in NaCl 0.9% 107 mL IVPB (Padcev)pembrolizumab 100 mg in NaCl 0.9% 54 mL IVPB (Keytruda) enfortumab vedotin-ejfv 70 mg in NaCl 0.9% 107 mL IVPB (Padcev) Past Treatment and Therapy Plans No past plan information found.
[2024-10-23 15:19] VITALS: BP 154/70; PULSE 47; RESP 16; TEMP 36.1; O2SAT 96; BMI 26.6
--- NOTE | 2024-10-23 15:48 | ED.MALEGU ---
HPI - Male Genitourinary General Chief complaint: Urogenital Problems, Male Stated complaint: Leaking Catheter Time Seen by Provider: 10/23/24 15:07 History of Present Illness HPI Narrative: This 78-year-old male comes in with a Bryant catheter problem. He thinks that he might of tub done at last night and has noted some leaking or drainage today. He states that his bag was rather full this morning also when he drained it. He does not report any other symptoms. He has had this catheter in for upwards of a month and has been diagnosed with bladder cancer. He is following with doctors in the [facility] in this regard. He states that he was due to have his catheter changed in the near future. Related Data Home Medications ?Medication ?Instructions ?Recorded ?Confirmed finasteride 5 mg tablet mg 12/07/21 04/10/22 metoprolol succinate 25 mg 25 mg PO DAILY 12/07/21 10/23/24 tablet,extended release 24 hr rosuvastatin 20 mg tablet 20 mg PO 12/07/21 04/10/22 aspirin 81 mg chewable tablet 81 mg PO DAILY 10/23/24 10/23/24 (Jaiden Chewable Low Dose Aspirin) Allergies Allergy/AdvReac Type Severity Reaction Status Date / Time atorvastatin (From Lipitor) Allergy Unknown Verified 08/27/24 15:58 citalopram Allergy Unknown Verified 08/27/24 15:58 Review of Systems Status of ROS: Reports: 10 or more systems reviewed and unremarkable except as noted in History and below Narrative: Constitutional: No fevers, no weight gain or loss. Eyes: No discharge. No vision changes. HENT: No congestion, no sore throat, no ear pain. Cardiovascular: No chest pain, no palpitations. Respiratory: No shortness of breath, no wheezes, no cough. Gastrointestinal: No abdominal pain, no vomiting, no diarrhea. Genitourinary: Bryant catheter as described above. Musculoskeletal: Normal range of motion. Skin: No rashes, no pruritis. Neurological: No dizziness, weakness, sensory change, speech change. Endo/Heme/Allergies: No bruising or bleeding. No polydipsia. Pysch: no suicidality, no anxiety, no insomnia. All other systems reviewed and are negative. PFSH PFSH Social History Smoking Status: Former smoker What tobacco products do you use: cigarettes Smoking packs per day: 20 Smoking cigarettes per day: 400.0 Years smoked: 20 Smoking pack-years: 400.00 Smoking quit date/years: >15 years ago Do you use any of these nicotine containing products: None How often do you have a drink containing alcohol: 2-3 times a week How many standard drinks containing alcohol do you have on a typical day: 1 or 2 How often do you have six or more drinks on one occasion: Monthly AUDIT-C Alcohol total score: 5 Non-prescribed substance use: denies use service: No Exam Narrative: Exam Narrative: Constitutional: Well-developed, well-nourished, no acute distress. HEENT: Normocephalic, atraumatic. Neck: Normal range of motion. Nontender. Supple. Heart: Intact distal pulses. Lungs: No chest discomfort. No wheezes, rhonchi, or rales. Abdomen: Nontender. Back: Normal range of motion. Extremities: Normal range of motion. No injury. Skin: Intact. No rash. Warm. No erythema or pallor. Neurologic: No altered sensation. No weakness. Alert and oriented. Psychiatric: No suicidality. No anxiety or depression. No insomnia. Nursing notes and vitals signs are reviewed. Const: Vital Signs, click to edit/add: Vital Signs - 24 hr 10/23/24 15:19 Temperature 97.0 F L Pulse Rate [Pulse Oximeter] 47 L Respiratory Rate 16 Blood Pressure [Ri ght Upper Arm] 154/70 H Pulse Oximetry 96 Oxygen Delivery Me thod Room Air Course Vital Signs Vital signs: Initial Vital Signs Temperature 97.0 F L 10/23/24 15:19 Temperature Source Temporal Artery Scan 10/23/24 15:19 Pulse Rate 47 L 10/23/24 15:19 Respiratory Rate 16 10/23/24 15:19 Blood Pressure 154/70 H 10/23/24 15:19 Blood Pressure Mean 98 10/23/24 15:19 Blood Pressure Position Sitting 10/23/24 15:19 Pulse Oximetry 96 10/23/24 15:19 Oxygen Delivery Method Room Air 10/23/24 15:19 Vital Signs Temperature 97.0 F L 10/23/24 15:19 Pulse Rate 47 L 10/23/24 15:19 Respiratory Rate 16 10/23/24 15:19 Blood Pressure 154/70 H 10/23/24 15:19 Pulse Oximetry 96 10/23/24 15:19 Oxygen Delivery Method Room Air 10/23/24 15:19 Temperature 97.0 F L 10/23/24 15:19 Pulse Rate 47 L 10/23/24 15:19 Respiratory Rate 16 10/23/24 15:19 Blood Pressure 154/70 H 10/23/24 15:19 Pulse Oximetry 96 10/23/24 15:19 Oxygen Delivery Method Room Air 10/23/24 15:19 MDM - Male Genitourinary MDM Narrative Medical decision making narrative: This patient comes in reporting leaking from his catheter. He is due to have a catheter changed in of week or so and requested changing of the catheter today. Replacement of the catheter was not so easily done. A nursemaid about 3 attempts with different sizes. I was able to place an 18 Malay coude catheter with good results. A urinalysis is obtained but the patient prefers to return home and be called of further treatment is necessary. He is able to follow-up with his primary physicians for ongoing management of his bladder cancer and related symptoms. Discharge Plan Discharge Clinical Impression: Bryant catheter problem Patient Disposition: Home, Self-Care Condition: Improved Additional Instructions: Continue current plans. Follow up with MD as scheduled or needed. Return if worsening. Prescriptions: No Action metoprolol succinate 25 mg tablet extended release 24 hr 25 mg PO DAILY finasteride 5 mg tablet rosuvastatin 20 mg tablet 20 mg PO aspirin [Jaiden Chewable Aspirin] 81 mg tablet,chewable 81 mg PO DAILY Follow Up/Referrals: Osorio Galvan MD [Primary Care Provider, Family Practice] Stand Alone Forms: [employer] Info Instructions
--- OUTSIDE RECORDS SUMMARY | 2024-10-23 15:54 | XMS_ITS | Patient Health Record ---
Author Organization [facility] Address [address] [place] [address] Care Team Providers Care Inspector Advanced Composite Name Role Phone Osorio Galvan Primary Care Provider PEGGY Sainz Unavailable [phone] Reason For Referral No Information Social History Tobacco Use: Social History Observation Description Date Details (start date - stop date) Former Smoker NA - NA Social History Tobacco Use: Social Info Question Answer Notes Tobacco use/smoking Are you a former smoker Problems Problem Type SNOMED Code ICD Code Onset Dates Problem Status W/U Status Risk Notes Problem Hoarseness (84819616) Hoarseness (R49.0) Active confirmed Problem Dysphagia (91279075) Dysphagia (R13.10) Active confirmed Plan Of Treatment No Information Insurance Providers Payer Name Payer Address Payer Phone Subscriber Number Group Number Insured Name Patient Relationship to Insured Coverage Start Date Coverage End Date MEDICARE [address] [place] [address] [id number] Hernandez Samayoa Self - patient is the insured [facility] Supplementa l [address] [place], [place] [id number] Hernandez Samayoa Self - patient is the insured Medical (General) History Medical History History ICD Code sleep apnea Surgical History Surgery Date(Month/Year) throat/ epiglotis back
[2024-10-23 17:41] LABS: Appearance Urine Slightly Cloudy (Clear)
== END 2024-10-23 17:30 | disposition home or self-care (01) ==
PROVIDERS: Emergency Provider Emergency Medicine Emergency Medical Services; PCP Family Medicine
DX: T83.038A Leakage of other urinary catheter, initial encounter (principal)
CPT/HCPCS: 51702; 81001; 87086; 99283; 99284

== ENCOUNTER 2024-10-24 17:48 | Emergency (ER) | payer MEDICARE, SELFPAY ==
--- OUTSIDE RECORDS SUMMARY | 2024-09-27 15:15 | XMS_ITS | Encounter Summary ---
Author Organization [facility] Address [address] [place] [address] Care Team Providers Care Ski Patrol Director Name Role Phone Elsewhere, Pcp Primary Care Provider Unavailabl e Encounter Details Date Type Department Care Team (Latest Contact Info) Description 09/27/2024 3:15 PM CDT Clinical Communication Virtual Review in [place], [place] [address] [place] [address] Social History Tobacco Use Types Packs/Day Years Used Date Smoking Tobacco: Former Smokeless Tobacco: Never Alcohol Use Standard Drinks/Week Comments Yes 6 (1 standard drink = 0.6 oz pur e alcohol) [facility] Utilities Answer Date Recorded In the [...] your living situation today? I have a [facility] place to live 09/04/2024 Education Answer Date Recorded What is the highest level of school you have completed or the highest degree you have received? 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 [address] [place] [phone] 10/26/2024 1:00 PM CDT Education Department of Oncology in [address] [phone] Polo Dwyer M.D. [address] [place] [phone] 10/26/2024 2:00 PM CDT Infusion Department of Oncology in [place], [place] [address] [place] [phone] Polo Dwyer M.D. [address] [place] [phone] 11/02/2024 12:10 PM CDT Lab Department of Laboratory Medicine and Pathology, [facility] in [place], [place] [address] [place] [phone] Alisa Menjivar M.D. [address] [place] [phone] 11/02/2024 1:00 PM CDT Clinical Support Department of Oncology in [place], [place] [address] [place] [phone] Polo Dwyer M.D. [address] [place] [phone] China Parikh M.S.Onur., L.I.C.S.W. [address] [place] [phone] 11/02/2024 2:00 PM CDT Infusion Department of Oncology in [place], [place] [address] [place] [phone] Alisa Menjivar M.D. [address] [place] [phone] 11/12/2024 2:15 PM CDT Office Visit Department of Cardiovascular Medicine in [place], [place] [address] [place] [phone] Elisa Alva M.D. [address] [place] [phone] 11/15/2024 3:30 PM CDT Clinical Communication Virtual Review in [place], [place] 200 [place] [address] 11/16/2024 8:30 AM CDT Lab Department of Laboratory Medicine and Pathology, [facility], in [place], [place] [address] [place] [phone] Alisa Menjivar M.D. [address] [place] [phone] 11/16/2024 10:30 AM CDT Office Visit Department of Oncology in [place], [place] [address] [place] [phone] Alisa Menjivar M.D. [address] [place] [phone] 11/16/2024 2:30 PM CDT Infusion Department of Oncology in [place], [place] [address] [place] [address] Alisa Menjivar M.D. [address] [place] [phone] 11/23/2024 8:30 AM CDT Lab Department of Laboratory Medicine and Pathology, [facility] in [place], [place] [address] [place] [address] Alisa Menjivar M.D. [address] [place] [phone] 11/23/2024 10:30 AM CDT Infusion Department of Oncology in [place], [place] [address] [place] [phone] Alisa Menjivar M.D. [address] [place] [phone] documented as of this encounter Visit Diagnoses Not on filedocumented in this encounter Care Teams Ski Patrol Director Relationship Specialty Start Date End Date Elsewhere, Pcp PCP - General Internal Medicine 09/27/24 10/08/24 documented as of this encounter
--- OUTSIDE RECORDS SUMMARY | 2024-10-01 10:00 | XMS_ITS | Encounter Summary ---
Author Organization [facility] Address [address] [place] [address] Care Team Providers Care Senior Cytotechnologist Name Role Phone Elsewhere, Pcp Primary Care Provider Unavailabl e Encounter Details Date Type Department Care Team (Latest Contact Info) Description 10/01/2024 10:00 AM CDT - 10/01/2024 2:29 PM CDT Hospital Encounter Department of Laboratory Medicine and Pathology, [facility] in [place], [place] [address] [place] [address] Shyam Musa M.D. [address] [place] [address] Mass Bladder; Hematuria Discharge Disposition: Home or Self Care Social History Tobacco Use Types Packs/Day Years Used Date Smoking Tobacco: Former Smokeless Tobacco: Never Alcohol Use Standard Drinks/Week Comments Yes 6 (1 standard drink = 0.6 oz pur e alcohol) [facility] Utilities Answer Date Recorded In the past 12 months has e [employer], gas, oil, or water [employer] threatened to shut off services in your [...] 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, BOLTER HELPER, BERTA) 05/11/2020 Sex and Gender Information Value Date Recorded Sex Assigned at Male 09/04/2024 9:32 AM CDT 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 [address] [place] [phone] 10/26/2024 1:00 PM CDT Education Department of Oncology in [place], [place] [address] [place] [phone] Polo Dwyer M.D. [address] [place] [phone] 10/26/2024 2:00 PM CDT Infusion Department of Oncology in [place], [place] [address] [place] [phone] Polo Dwyer M.D. [address] [place] [phone] 11/02/2024 12:10 PM CDT Lab Department of Laboratory Medicine and Pathology, [facility], in [place], [place] [address] [place] [phone] Alisa Menjivar M.D. [address] [place] [phone] 11/02/2024 1:00 PM CDT Clinical Support Department of Oncology in [place], [place] [address] [place] [phone] Polo Dwyer M.D. [address] [place] [phone] China Parikh M.S.W., L.I.C.S.W. [address] [place] [phone] 11/02/2024 2:00 PM CDT Infusion Department of Oncology in [place], [place] [address] [place] [phone] Alisa Menjivar M.D. [address] [place] [phone] 11/12/2024 2:15 PM CDT Office Visit Department of Cardiovascular Medicine in [place], [place] [address] [place] [phone] Elisa Alva M.D. [address] [place] [phone] 11/15/2024 3:30 PM CDT Clinical Communication Virtual Review in [place], [place] 200 [place] [phone] 11/16/2024 8:30 AM CDT Lab Department of Laboratory Medicine and Pathology, [facility], in [place], [place] [address] [place] [phone] Alisa Menjivar M.D. [address] [place] [phone] 11/16/2024 10:30 AM CDT Office Visit Department of Oncology in [place], [place] [address] [place] [phone] Alisa Menjivar M.D. [address] [place] [phone] 11/16/2024 2:30 PM CDT Infusion Department of Oncology in [place], [place] [address] [place] [phone] Alisa Menjivar M.D. [address] [place] [phone] 11/23/2024 8:30 AM CDT Lab Department of Laboratory Medicine and Pathology, [facility] in [place], [place] [address] [place] [phone] Alisa Menjivar M.D. [address] [place] [phone] 11/23/2024 10:30 AM CDT Infusion Department of Oncology in [place], [place] [address] [place] [phone] Alisa Menjivar M.D. [address] [place] [phone] documented as of this encounter Procedures Procedure [...] ORDERABLES Final Re sult Performing Organization Address [facility] Co de Phone Number [facility] [address] DTL [facility] [address] [place] [address] * pH, Urine (10/01/2024 1:14 PM CDT) pH, U 6.4 4.5 - 8.0 10/01/2024 3:0 9 PM CDT DTL Urine 10/01/2024 1:14 PM CDT 10/01/2024 2:22 PM CDT us Shyam Musa M.D. LAB URINE ORDERABLES Final Re sult Performing Organization Address [facility]/ZIP Co de Phone Number [facility] [address] [place], [place] [address] [place] [address] 200 [place] [address] * (ABNORMAL) Dipstick, Urine (10/01/2024 1:14 PM [...] ORDERABLES Final Re sult Performing Organization Address [facility] Co de Phone Number [facility] 200 [place], [place] [phone] [place] [address] 200 [place] [address] * Osmolality, Urine (10/01/2024 1:14 PM CDT) Osmolality, U 372 150 - 1150 mOsm/kg 10/01/2024 3:09 PM CDT DTL Urine 10/01/2024 1:14 PM CDT 10/01/2024 2:22 PM CDT us Shyam Musa M.D. LAB URINE ORDERABLES Final Re sult Performing Organization Address City/[facility]/ZIP Co de Phone Number [facility] [address] [place], [place] [address] [address] [place] [address] * (ABNORMAL) Urinalysis, with Microscopic: Urine, Midstream [...] M.D. LAB URINE ORDERABLES Final Re sult [facility] 200 [place] [address], [facility] 200 [place] [address] * (ABNORMAL) Bacterial Culture, Aerobic + Susceptibility, Urine (10/01/2024 1:14 PM CDT) Urine Culture Multiple organisms >10,000 cfu/mL present suggesting probable contamination (A) 10/02/2024 11:08 AM CDT DTL Urine (Urine, Midstream) 10/01/2024 1:14 PM CDT 10/01/2024 2:46 PM CDT Comment:Specimen Source Site : Urine us Shyam Musa M.D. LAB MICROBIOLOGY - GENERAL OR DERABLES Final Result [facility] [address] [place] [address], [facility] [address] [place] [address] documented in this encounter Visit Diagnoses Diagnosis Mass Bladder Hematuria documented in this encounter Care Teams Senior Cytotechnologist Relationship Specialty Start Date End Date Elsewhere, Pcp PCP - General Internal Medicine 09/27/24 10/08/24 documented as of this encounter
--- OUTSIDE RECORDS SUMMARY | 2024-10-01 11:00 | XMS_ITS | Encounter Summary ---
Author Organization [facility] Address [address] [place] [address] Care Team Providers Care Director Operations Broadcast Name Role Phone Elsewhere, Pcp Primary Care Provider Unavailabl e Reason for Referral * Outpatient (Routine) - Closed Specialty Diagnoses / Procedures Referred By Contac t Referred To Contact Diagnoses Preanesthetic Medical Exam Procedures ECG 12 Lead DC EKG 12 LEAD W I&R Kiel Schmidt M.D. [address] [place] [phone] Phone: tel: fax: [facility] Referral ID Status Reason Start Date Expiration Date Visits Re quested Visits Authorized [id number] Closed 10/01/2024 01/01/2026 1 1 * Outpatient (Routine) - Closed Specialty Diagnoses / Procedures Referred By Contact Referred To Contact Cardiovascular Diseases / Cardiovascular Disease Diagnoses Preanesthetic Medical Exam Kiel Schmidt M.D. [address] [place] [phone] Phone: tel: fax: [facility] Referral ID Status Reason Start Date Expiration Date Visits Re quested Visits Authorized [id number] Closed 10/01/2024 04/02/2026 1 1 * Outpatient (Routine) - Authorized Specialty Diagnoses / Procedures Referred By Contac t Referred To Contact Diagnoses Preanesthetic Medical Exam Procedures ECG 12 Lead DC EKG 12 LEAD W I&R Kiel Schmidt M.D. [address] [place] [phone] Phone: tel: fax: [facility] Referral ID Status Reason Start Date Expiration Date V isits Requested Visits Authorized [id number] Authorized 10/01/2024 01/01/2026 1 1 Reason for Visit * Outpatient (Routine) - Closed Specialty Diagnoses / Procedures Referred By Keiko latif Referred To Contact Anesthesiology Diagnoses Malignant Neoplasm Of Bladder (HCC) Shyam Musa M.D. [address] [place] [address] Phone: tel: fax: [facility] Referral ID Status Reason Start Date Expiration Date Visits Re quested Visits Authorized [id number] Closed 09/04/2024 03/06/2026 1 1 Encounter Details Date Type Department Care Team (Latest Contact Info) Description 10/01/2024 11:00 AM CDT Comprehensive Visit Preoperative Evaluation Center in [place], [place] [address] [place] [address] Shyam Musa M.D. [address] [place] [phone] Kiel Schmidt M.D. [address] [place] [phone] Preanesthetic Medical Exam (Primary Dx); Malignant Neoplasm Of Bladder (HCC); Atherosclerotic Heart Disease [place] Coronary Artery With Other Forms Angina Pectoris [...] = 0.6 oz pur e alcohol) [facility] Utilities Answer Date Recorded In [...] your living situation today? I have a [facility] place to live 09/04/2024 Education Answer Date Recorded What is the highest level of school you have completed or the highest degree you have received? 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 Johnston. #3 Atherosclerotic Heart Disease [place] Coronary Artery With Other Forms Angina Pectoris [...] and spicy meals. He treats this with akdu-duw-kisutsl medications (Tums) approximately twice weekly. #7 Stroke [...] Status post right carotid endarterectomy 03/10/2020 at [facility]. #9 Impairment Cognitive Mild Increasing concerns with [...] Get Ready for Your Surgery or Procedure: [facility]. Written and/or verbal instructions given on medication management before surgery. Reviewed instructions on avoiding aspirin, ibuprofen-containing medications, and supplements one week before surgery. Patient may take acetaminophen as needed for pain. RECOMMENDATIONS: Patient medically optimized for planned procedure: No Further Recommendations: Cardiology CARLOS Consult ordered given the patients increasing frequency of rest and exertional chest pain. I spent 30 minutes of total lusn-gl-igsc time in consultation with the patient. documented in this encounter Plan of Treatment Upcoming Encounters Date Type Department Care Team (Late st Contact Info) Description 10/26/2024 12:00 PM CDT Lab Department of Laboratory Medicine and Pathology, [facility] in [place], [place] [address] [place] [phone] Polo Dwyer M.D. [address] [place] [phone] 10/26/2024 1:00 PM CDT Education Department of Oncology in [place], [place] [address] [place] [phone] Polo Dwyer M.D. [address] [place] [phone] 10/26/2024 2:00 PM CDT Infusion Department of Oncology in [place], [place] [address] [place] [phone] Polo Dwyer M.D. [address] [place] [phone] 11/02/2024 12:10 PM CDT Lab Department of Laboratory Medicine and Pathology, [facility], in [place], [place] [address] [place] [phone] Alisa Menjivar M.D. [address] [place] [phone] 11/02/2024 1:00 PM CDT Clinical Support Department of Oncology in [place], [place] [address] [place] [phone] Polo Dwyer M.D. [address] [place] [phone] China Parikh M.S.W., L.I.C.S.W. [address] [place] [phone] 11/02/2024 2:00 PM CDT Infusion Department of Oncology in [place], [place] [address] [place] [phone] Alisa Menjivar M.D. [address] [place] [phone] 11/12/2024 2:15 PM CDT Office Visit Department of Cardiovascular Medicine in [address] [phone] Elisa Alva M.D. [address] [place] [phone] 11/15/2024 3:30 PM CDT Clinical Communication Virtual Review in [place], [place] 200 [place] [address] 11/16/2024 8:30 AM CDT Lab Department of Laboratory Medicine and Pathology, [facility], in [place], [place] [address] [place] [phone] Alisa Menjivar M.D. [address] [place] [phone] 11/16/2024 10:30 AM CDT Office Visit Department of Oncology in [place], [place] [address] [place] [phone] Alisa Menjivar M.D. [address] [place] [phone] 11/16/2024 2:30 PM CDT Infusion Department of Oncology in [place], [place] [address] [place] [phone] Alisa Menjivar M.D. [address] [place] [phone] 11/23/2024 8:30 AM CDT Lab Department of Laboratory Medicine and Pathology, [facility] in [place], [place] [address] [place] [phone] Alisa Menjivar M.D. [address] [place] [phone] 11/23/2024 10:30 AM CDT Infusion Department of Oncology in [place], [place] [address] [place] [phone] Alisa Menjivar M.D. [address] [place] [phone] Scheduled Referrals Name Type Priority Associated Diagnoses [...] CDT) Ventricular Rate ECG/Min 64 BPM MUSE DC Interval 182 ms MUSE QRSD Interval 76 ms MUSE QT Interval 388 ms MUSE QTC Interval 400 ms MUSE P [place] 41 degrees MUSE R [place] 59 degrees MUSE T Wave [place] 49 degrees MUSE 10/09/2024 2:48 PM CDT [...] Kiel Schmidt M.D. ECG ORDERABLES Final Result Performing Organization Address [facility] de Phone Number MUSE NA * ECG 12 Lead (10/01/2024 12:06 PM CDT) Ventricular Rate ECG/Min 78 BPM MUSE DC Interval 164 ms MUSE QRSD Interval 78 ms MUSE QT Interval 362 ms MUSE QTC Interval 412 ms MUSE R [place] 14 degrees MUSE T Wave [place] 18 degrees MUSE 10/01/2024 12:0 6 PM CDT 10/01/2024 1:03 PM CDT Impressions MUSE - 10/01/2024 1:03 PM CDT Normal sinus rhythm Normal ECG No previous ECGs available Reviewed by JIM Baldwin Narrative Procedure Note Tobi De Leon M.D., Ph.D. - 10/01/2024 IMPRESSION: Normal sinus rhythm Normal ECG No previous ECGs available Reviewed by JIM Baldwin Kiel Schmidt M.D. ECG ORDERABLES Final Result Performing Organization Address 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
--- OUTSIDE RECORDS SUMMARY | 2024-10-01 14:30 | XMS_ITS | Encounter Summary ---
Author Organization [facility] Address [address] [place] [address] Care Team Providers Care Ultrasonic Solderer Name Role Phone Elsewhere, Pcp Primary Care Provider Unavailabl e Reason for Visit * MRI/CAT/PET Scan (Routine) - Closed Specialty Diagnoses / Procedures Referred By Contac t Referred To Contact Radiology Diagnoses Mass Bladder Procedures CT Chest without IV Contrast CT Chest with IV Contrast Shyam Musa M.D. [address] [place] [address] Phone: tel: fax: [facility] Referral ID Status Reason Start Date Expiration Date Visits Re quested Visits Authorized [id number] Closed 09/04/2024 12/05/2025 1 1 Encounter Details Date Type Department Care Team (Latest Contact Info) Description 10/01/2024 2:30 PM CDT - 10/01/2024 11:59 PM CDT Hospital Encounter Department of Radiology, [facility] in [place], [place] 200 [place] [address] Shyam Musa M.D. 200 [place] [phone] Mass Bladder Discharge Disposition: Home or Self Care Social History Tobacco Use Types Packs/Day Years Used Date Smoking Tobacco: Former Smokeless Tobacco: Never Alcohol Use Standard Drinks/Week Comments Yes 6 (1 standard drink = 0.6 oz pur e alcohol) [facility] Utilities Answer Date Recorded In the past [...] your living situation today? I have a [facility] place to live 09/04/2024 Education Answer Date Recorded What is the highest level of school you have completed or the highest degree you have received? 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 [address] [place] [phone] 10/26/2024 1:00 PM CDT Education Department of Oncology in [place], [place] [address] [place] [phone] Polo Dwyer M.D. [address] [place] [phone] 10/26/2024 2:00 PM CDT Infusion Department of Oncology in [address] [phone] Polo Dwyer M.D. [address] [place] [phone] 11/02/2024 12:10 PM CDT Lab Department of Laboratory Medicine and Pathology, [facility], in [address] [phone] Alisa Menjivar M.D. [address] [place] [phone] 11/02/2024 1:00 PM CDT Clinical Support Department of Oncology in [address] [phone] Polo Dwyer M.D. [address] [place] [phone] China Parikh M.S.W., L.I.C.S.W. [address] [place] [phone] 11/02/2024 2:00 PM CDT Infusion Department of Oncology in [address] [phone] Alisa Menjivar M.D. [address] [place] [phone] 11/12/2024 2:15 PM CDT Office Visit Department of Cardiovascular Medicine in [address] [phone] Elisa Alva M.D. [address] [place] [phone] 11/15/2024 3:30 PM CDT Clinical Communication Virtual Review in [place], [place] 200 [place] [address] 11/16/2024 8:30 AM CDT Lab Department of Laboratory Medicine and Pathology, [facility] in [place], [place] [address] [place] [phone] Alisa Menjivar M.D. [address] [place] [phone] 11/16/2024 10:30 AM CDT Office Visit Department of Oncology in [place], [place] [address] [place] [phone] Alisa Menjivar M.D. [address] [place] [phone] 11/16/2024 2:30 PM CDT Infusion Department of Oncology in [place], [place] [address] [place] [phone] Alisa Menjivar M.D. [address] [place] [phone] 11/23/2024 8:30 AM CDT Lab Department of Laboratory Medicine and Pathology, [facility] in [place], [place] [address] [place] [phone] Alisa Menjivar M.D. [address] [place] [phone] 11/23/2024 10:30 AM CDT Infusion Department of Oncology in [place], [place] [address] [place] [phone] Alisa Menjivar M.D. [address] [place] [phone] documented as of this encounter Procedures Procedure [...] 3. Dilated ascending aorta, measuring 45 mm. us Shyam Musa M.D. IMG CT PROCEDURES Final Resul t documented in this encounter Visit Diagnoses Diagnosis Mass Bladder documented in this encounter Care Teams Ultrasonic Solderer Relationship Specialty Start Date End Date Elsewhere, Pcp PCP - General Internal Medicine 09/27/24 10/08/24 documented as of this encounter
--- OUTSIDE RECORDS SUMMARY | 2024-10-09 07:00 | XMS_ITS | Encounter Summary ---
Author Organization [facility] Address [address] [place] [address] Care Team Providers Care Prior Authorization Nurse Name Role Phone Elsewhere, Pcp Primary Care Provider Unavailabl e Reason for Referral * Outpatient (Routine) - Authorized Specialty Diagnoses / Procedures Referred By Contac t Referred To Contact Diagnoses Pain Chest Procedures NM Cardiac Perfusion Rest and Stress SPECT Ab Shabazz MPAS, P.A.-C., M.S. [address] [place] [address] Phone: tel: fax: [facility] Referral ID Status Reason Start Date Expiration Date V isits Requested Visits Authorized [id number] Authorized 10/02/2024 01/02/2026 8 8 Reason for Visit * Outpatient (Routine) - Authorized Specialty Diagnoses / Procedures Referred By Contac t Referred To Contact Diagnoses Pain Chest Procedures NM Cardiac Perfusion Rest and Stress SPECT Ab Shabazz MPAS, P.A.-C., M.S. [address] [place] [address] Phone: tel: fax: [facility] Referral ID Status Reason Start Date Expiration Date V isits Requested Visits Authorized [id number] Authorized 10/02/2024 01/02/2026 8 8 Encounter Details Date Type Department Care Team (Latest Contact Info) Description 10/09/2024 7:00 AM CDT - 10/09/2024 7:12 AM CDT Hospital Encounter Department of Radiology, [facility], in [place], [place] [address] [place] [address] Ab Shabazz MPAS, P.A.-C., M.S. [address] [place] [address] Pain Chest Discharge Disposition: Home or Self Care Social History Tobacco Use Types Packs/Day Years Used Date Smoking Tobacco: Former Smokeless Tobacco: Never Alcohol Use Standard Drinks/Week Comments Yes 3 (1 standard drink = 0.6 oz pur e alcohol) [facility] Utilities Answer Date Recorded In the past 12 months has e electric, gas, oil, or water [employer] threatened to shut off services in your home? No 10/09/2024 Humiliation, Afraid, Rape, and Kick questionnair e Answer Date Recorded Within the last year, have y ou been afraid of your partner or ex-partner? No 10/09/2024 Within the last year, have y ou been humiliated or emotionally abused in other ways by your partner or ex-partner? No Within the last year, have y ou been kicked, hit, slapped, or otherwise physically hurt by your partner or ex-partner? No 10/09/2024 Within the last year, have y ou been raped or forced to have any kind of sexual activity by your partner or ex-partner? No 10/09/2024 Hunger Vital Sign Answer Date Recorded Within the past 12 months, y ou worried that your food would run out before you got the money to buy more. Never true 10/10/19 25 Within the past 12 months, t he food you bought just didn't last and you didn't have money to get more. Never true 10/09/2024 PRAPARE - Transportation Answer Date Re corded In the past 12 months, has l ack of transportation kept you from medical appointments or from getting medications? No 09/25 In the past 12 months, has l ack of transportation kept you from meetings, work, or from getting things needed for daily living? No 10/09/2024 Housing Stability Answer Date Recorded What is your living situation today? I have a [facility] place to live 10/09/2024 Education Answer Date Recorded What is the highest level of school you have completed or the highest degree you have received? 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 03/19/2020 sulfamethoxazol e-trimethoprim (Bactrim DS) 800-160 mg per tabletIndicatio ns:Mass Bladder Take 1 tablet by mouth 2 (two) times a day for 3 days. Take for 3 days before surgery 6 tablet 10/08/2024 10/12/19 25 documented as of this encounter Plan of Treatment Upcoming Encounters Date Type Department Care Team (Late st Contact Info) Description 10/26/2024 12:00 PM CDT Lab Department of Laboratory Medicine and Pathology, [facility] in [place], [place] [address] [place] [phone] Polo Dwyer M.D. [address] [place] [phone] 10/26/2024 1:00 PM CDT Education Department of Oncology in [place], [place] [address] [place] [phone] Polo Dwyer M.D. [address] [place] [phone] 10/26/2024 2:00 PM CDT Infusion Department of Oncology in [place], [place] [address] [place] [phone] Polo Dwyer M.D. [address] [place] [phone] 11/02/2024 12:10 PM CDT Lab Department of Laboratory Medicine and Pathology, [facility] in [place], [place] [address] [place] [phone] Alisa Menjivar M.D. [address] [place] [phone] 11/02/2024 1:00 PM CDT Clinical Support Department of Oncology in [place], [place] [address] [place] [phone] Polo Dwyer M.D. [address] [place] [phone] China Parikh M.S.W., L.I.C.S.W. [address] [place] [phone] 11/02/2024 2:00 PM CDT Infusion Department of Oncology in [place], [place] [address] [place] [phone] Alisa Menjivar M.D. [address] [place] [phone] 11/12/2024 2:15 PM CDT Office Visit Department of Cardiovascular Medicine in [place], [place] [address] [place] [phone] Elisa Alva M.D. [address] [place] [phone] 11/15/2024 3:30 PM CDT Clinical Communication Virtual Review in [place], [place] 200 [place] [address] 11/16/2024 8:30 AM CDT Lab Department of Laboratory Medicine and Pathology, [facility] in [place], [place] [address] [place] [phone] Alisa Menjivar M.D. [address] [place] [phone] 11/16/2024 10:30 AM CDT Office Visit Department of Oncology in [place], [place] [address] [place] [phone] Alisa Menjivar M.D. [address] [place] [phone] 11/16/2024 2:30 PM CDT Infusion Department of Oncology in [place], [place] [address] [place] [phone] Alisa Menjivar M.D. [address] [place] [phone] 11/23/2024 8:30 AM CDT Lab Department of Laboratory Medicine and Pathology, [facility] in [place], [place] [address] [place] [phone] Alisa Menjivar M.D. [address] [place] [address] 11/23/2024 10:30 AM CDT Infusion Department of Oncology in [place], [place] [address] [place] [address] Alisa Menjivar M.D. [address] [place] [phone] documented as of this encounter Procedures Procedure Name Priority Date/Time Associated Diagnosis Comments NM CARDIAC PERFUSION REST AND STRESS SPECT RAD - Routine (most inpatients and all outpatients) 10/09/2024 8:57 AM CDT Pain Chest documented in this encounter Results * NM Cardiac Perfusion Rest and Stress SPECT (10/09/2024 8:57 AM CDT) 10/09/2024 7:13 AM CDT Narrative CHIQUITA HERNANDEZ - 10/09/2024 10:42 AM CDT See PDF For Result Procedure Note Taina Galloway M.D. - 10/09/2024 See PDF For Result Ab ABBOTT PJonathan., M.S. [facility] Final Result [place] NA documented in this encounter Visit Diagnoses Diagnosis Pain Chest documented in this encounter Administered Medications Inactive Administered Medications - up to 3 most recent administrations Medication Order MAR Action Action Date Dose Rate Site technetium Tc 99m sestamibi injection (Tc-99m Cardiolite) 5.4-48.4 millicurie, intravenous, Once, On Tue10/09/24 at 0745, For 1 dose, Imaging Protocol Orders Given 10/09/2024 7:24 AM CDT 8.3 millicuries documented in this encounter Care Teams Prior Authorization Nurse Relationship Specialty Start Date End Date Elsewhere, Pcp PCP - General Internal Medicine 10/09/24 documented as of this encounter
--- OUTSIDE RECORDS SUMMARY | 2024-10-09 07:13 | XMS_ITS | Encounter Summary ---
Author Organization [facility] Address [address] [place] [address] Care Team Providers Care Projection Printer Name Role Phone Elsewhere, Pcp Primary Care Provider Unavailabl e Reason for Visit * Outpatient (Routine) - Authorized Specialty Diagnoses / Procedures Referred By Contac t Referred To Contact Diagnoses Pain Chest Procedures NM Cardiac Perfusion Rest and Stress SPECT Ab Shabazz MPAS, P.A.-C., M.S. [address] [place] [phone] Phone: tel: fax: [facility] Referral ID Status Reason Start Date Expiration Date V isits Requested Visits Authorized [id number] Authorized 10/02/2024 01/02/2026 8 8 Encounter Details Date Type Department Care Team (Latest Contact Info) Description 10/09/2024 7:13 AM CDT - 10/09/2024 4:59 PM T Hospital Encounter Department of Radiology, [facility], in [place], [place] [address] [place] [address] Ab Shabazz MPAS, P.A.Maria Fernanda., M.S. [address] [place] [phone] Discharge Disposition: Home or Self Care Social History Tobacco Use Types Packs/Day Years Used Date Smoking Tobacco: Former Smokeless Tobacco: Never Alcohol Use Standard Drinks/Week Comments Yes 3 (1 standard drink = 0.6 oz pur e alcohol) [facility] Utilities Answer Date Recorded In the past 12 months has e [employer], gas, oil, or water [employer] threatened to shut off services in your [...] your living situation today? I have a [facility] place to live 10/09/2024 Education Answer Date Recorded What is the highest level of school you have completed or the highest degree you have received? 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 [address] [place] [phone] 10/26/2024 1:00 PM CDT Education Department of Oncology in [place], [place] [address] [place] [phone] Polo Dwyer M.D. [address] [place] [phone] 10/26/2024 2:00 PM CDT Infusion Department of Oncology in [address] [phone] Polo Dwyer M.D. [address] [place] [phone] 11/02/2024 12:10 PM CDT Lab Department of Laboratory Medicine and Pathology, [facility], in [address] [phone] Alisa Menjivar M.D. [address] [place] [phone] 11/02/2024 1:00 PM CDT Clinical Support Department of Oncology in [address] [phone] Polo Dwyer M.D. [address] [place] [phone] China Parikh M.S.W., L.I.C.S.W. [address] [place] [phone] 11/02/2024 2:00 PM CDT Infusion Department of Oncology in [address] [phone] Alisa Menjivar M.D. [address] [place] [phone] 11/12/2024 2:15 PM CDT Office Visit Department of Cardiovascular Medicine in [address] [phone] Elisa Alva M.D. [address] [place] [phone] 11/15/2024 3:30 PM CDT Clinical Communication Virtual Review in [address] [phone] 11/16/2024 8:30 AM CDT Lab Department of Laboratory Medicine and Pathology, [facility] in [place], [place] [address] [place] [phone] Alisa Menjivar M.D. [address] [place] [phone] 11/16/2024 10:30 AM CDT Office Visit Department of Oncology in [place], [place] [address] [place] [phone] Alisa Menjivar M.D. [address] [place] [phone] 11/16/2024 2:30 PM CDT Infusion Department of Oncology in [place], [place] [address] [place] [phone] Alisa Menjivar M.D. [address] [place] [phone] 11/23/2024 8:30 AM CDT Lab Department of Laboratory Medicine and Pathology, [facility] in [place], [place] [address] [place] [phone] Alisa Menjivar M.D. [address] [place] [phone] 11/23/2024 10:30 AM CDT Infusion Department of Oncology in [address] [phone] Alisa Menjivar M.D. [address] [place] [phone] documented as of this encounter Procedures Procedure [...] (Tc-99m Cardiolite) 5.4-48.4 millicurie, intravenous, Once, On 10/09/24 at 0845, For 1 dose, Imaging Protocol Orders Given 10/09/2024 8:28 AM CDT 34.1 millicuries documented in this encounter Care Teams Projection Printer Relationship Specialty Start Date End Date Elsewhere, Pcp PCP - General Internal Medicine 10/09/24 documented as of this encounter
--- OUTSIDE RECORDS SUMMARY | 2024-10-09 07:13 | XMS_ITS | Encounter Summary ---
Author Organization [facility] Address [address] [place] [address] Care Team Providers Care Jewelry Technician Name Role Phone Elsewhere, Pcp Primary Care Provider Unavailabl e Reason for Visit * Outpatient (Routine) - Authorized Specialty Diagnoses / Procedures Referred By Contac t Referred To Contact Diagnoses Pain Chest Procedures NM Cardiac Perfusion Rest and Stress SPECT Ab Shabazz MPAS, P.A.-C., M.S. [address] [place] [address] Phone: tel: fax: [facility] Referral ID Status Reason Start Date Expiration Date V isits Requested Visits Authorized [id number] Authorized 10/02/2024 01/02/2026 8 8 Encounter Details Date Type Department Care Team (Latest Contact Info) Description 10/09/2024 7:13 AM CDT - 10/09/2024 4:59 PM CDT Hospital Encounter Department of Cardiovascular Diseases in [place], [place] [address] [place] [phone] Ab Shabazz MPAS, P.A.-Shayna., M.S. [address] [place] [phone] Discharge Disposition: Home or Self Care Social History Tobacco Use Types Packs/Day Years Used Date Smoking Tobacco: Former Smokeless Tobacco: Never Alcohol Use Standard Drinks/Week Comments Yes 3 (1 standard drink = 0.6 oz pur e alcohol) [facility] Utilities Answer Date Recorded In the past 12 months has th e [employer], gas, oil, or water [employer] threatened to shut off services in your [...] your living situation today? I have a [facility] place to live 10/09/2024 Education Answer Date Recorded What is the highest level of school you have completed or the highest degree you have received? 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 [address] [place] [phone] 10/26/2024 1:00 PM CDT Education Department of Oncology in [place], [place] [address] [place] [address] Polo Dwyer M.D. [address] [place] [phone] 10/26/2024 2:00 PM CDT Infusion Department of Oncology in [place], [place] [address] [place] [phone] Polo Dwyer M.D. [address] [place] [phone] 11/02/2024 12:10 PM CDT Lab Department of Laboratory Medicine and Pathology, [facility] in [address] [phone] Alisa Menjivar M.D. [address] [place] [phone] 11/02/2024 1:00 PM CDT Clinical Support Department of Oncology in [address] [address] Polo Dwyer M.D. [address] [place] [phone] China Parikh M.S.W., L.I.C.S.W. [address] [place] [phone] 11/02/2024 2:00 PM CDT Infusion Department of Oncology in [address] [phone] Alisa Menjivar M.D. [address] [place] [phone] 11/12/2024 2:15 PM CDT Office Visit Department of Cardiovascular Medicine in [address] [phone] Elisa Alva M.D. [address] [place] [phone] 11/15/2024 3:30 PM CDT Clinical Communication Virtual Review in [address] [phone] 11/16/2024 8:30 AM CDT Lab Department of Laboratory Medicine and Pathology, [facility] in [place], [place] [address] [place] [phone] Alisa Menjivar M.D. [address] [place] [phone] 11/16/2024 10:30 AM CDT Office Visit Department of Oncology in [place], [place] [address] [place] [phone] Alisa Menjivar M.D. [address] [place] [phone] 11/16/2024 2:30 PM CDT Infusion Department of Oncology in [address] [phone] Alisa Menjivar M.D. [address] [place] [phone] 11/23/2024 8:30 AM CDT Lab Department of Laboratory Medicine and Pathology, [facility], in [place], [place] [address] [place] [phone] Alisa Menjivar M.D. [address] [place] [phone] 11/23/2024 10:30 AM CDT Infusion Department of Oncology in [place], [place] [address] [place] [phone] Alisa Menjivar M.D. [address] [place] [phone] documented as of this encounter Procedures Procedure Name Priority Date/Time Associated Diagnosis Comments NM CARDIAC PERFUSION REST AND STRESS SPECT RAD - Routine (most inpatients and all outpatients) 10/09/2024 8:57 AM CDT Pain Chest documented in this encounter Results * NM Cardiac Perfusion Rest and Stress SPECT (10/09/2024 8:57 AM CDT) 10/09/2024 7:13 AM CDT Narrative SONA CV MERGE - 10/09/2024 10:42 AM CDT See PDF For Result Procedure Note Taina Galloway M.D. - 10/09/2024 See PDF For Result us Ab ABBOTT PJonathan., M.S. IMG NM LEO MORAN Final Result CV MERGE NA documented in this encounter Visit Diagnoses Not on filedocumented in this encounter Care Teams Jewelry Technician Relationship Specialty Start Date End Date Elsewhere, Pcp PCP - General Internal Medicine 10/09/24 documented as of this encounter
--- OUTSIDE RECORDS SUMMARY | 2024-10-09 16:15 | XMS_ITS | Encounter Summary ---
Author Organization [facility] Address [address] [place] [address] Care Team Providers Care Automobile Service Writer Name Role Phone Elsewhere, Pcp Primary Care Provider Unavailabl e Reason for Visit * Outpatient (Routine) - Closed Specialty Diagnoses / Procedures Referred By Contact Referred To Contact Cardiovascular Diseases / Cardiovascular Disease Diagnoses Preanesthetic Medical Exam Kiel Schmidt M.D. [address] [place] [address] Phone: tel: fax: [facility] Referral ID Status Reason Start Date Expiration Date Visits Re quested Visits Authorized [id number] Closed 10/01/2024 04/02/2026 1 1 Encounter Details Date Type Department Care Team (Latest Contact Info) Description 10/09/2024 4:15 PM CDT Office Visit Department of Cardiovascular Medicine in [place], [place] [address] [place] [address] Elisa Alva M.D. [address] [place] [address] Preoperative Exam (Primary Dx); Preoperative Examination Cardiovascular; Hyperlipidemia; Embolus Pulmonary Personal History; Preanesthetic Medical Exam; Angina Unstable (HCC) Social History Tobacco Use Types Packs/Day Years Used Date Smoking Tobacco: Former Smokeless Tobacco: Never Alcohol Use Standard Drinks/Week Comments Yes 3 (1 standard drink = 0.6 oz pur e alcohol) [facility] Utilities Answer Date Recorded In the past 12 months has e [employer], gas, oil, or water company threatened to [...] your living situation today? I have a [facility] place to live 10/09/2024 Education Answer Date Recorded What is the highest level of school you have completed or the highest degree you have received? 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 - 10/09/2024 4:15 PM CDT ASSESSMENT / PLAN This is a supervisory note for Dr. Alva. Mr. Samayoa is currently being evaluated for a large bladdermass that will require surgery. When Dr. Schmidt spoke with Mr. Samayoa earlier today in his pre anesthetic medical evaluation, Mr. Samayoa described chest discomfort that is increasing in frequency and severity, including at rest. Mr. Samayoa does not describe nocturnal symptoms and he does not describe excessively prolonged symptoms, noting that he has not found it necessary to use nitroglycerin that he has carried with him. However, he clearly confirms that his symptoms are occurring more frequently andare more severe in nature and are occurring at rest. He did have a CT coronary angiogram done in January of 2020 that showed a severe mid LAD lesion with significant flow limitations based on FFR with a total occlusion of the distal right coronary artery and a small obtuse marginal with a severe obstruction that was not flow-limiting on FFR analysis. He has been managed medically and has done well for the most part, though in reviewing outside notes, it appears that these recent symptoms have developed since May of this year. The complicating problem now is that of a large bladder mass that will require surgical therapy. His symptoms represent unstable angina and thus present a significantly increased risk of myocardial infarction in the next two months. This risk would be independent of the risk of a elan-operative myocardial infarction. I explained to Mr. Samayoa and his family that the safest approach here would carl proceed to coronary angiography and percutaneous coronary intervention if indicated. I explainedthat symptoms of unstable angina are a warning sign of potential infarction, with about 40% of patients experiencing an event within about two months. I also explained the risk of elan operative myocardial infarctions, especially those occurring during anesthesia where outcomes are often worse. I noted as well that if we proceed to stenting, we will then need to use dual antiplatelet therapy at least for short time and that this may have the potential to delay surgery. On the other hand, if we do not find lesions that require percutaneous coronary intervention, we can quickly intensify medical therapy and proceed with surgery. Given the unstable nature of his symptoms, we will admit to [facility] for coronary angiography and possible percutaneous intervention. Unfortunately, the cardiology services at [facility] are currently capped and so this will require emergency room evaluation. I explained this plan to him in detail and he understands and wishes to proceed. I will alert Dr. Marcos and Dr. Schmidt so that they are aware. documented in this encounter Consult Notes * Elisa Alva M.D. - 10/09/2024 4:15 PM CDT SUBJECTIVE CHIEF COMPLAINT/REASON FOR CONSULT Pre-Operative Evaluation HISTORY OF PRESENT ILLNESS Hernandez Samayoa is a 78 y.o. male who presents today for a pre-operative consultation at the request of Dr. Liat Johnston who plans on performing TURBT with bilateral stent placement on October 11, 2024. This cardiac consultation is requested for the specific purpose of further evaluating and managing the patient's perioperative cardiac risk. Based on information from pre-operative surgical notes and the patient, the surgery has moderate risk. 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 Vasodilator SPECT December 2019 as part of a preop evaluation for eye surgery showed small area of ischemia in the mid and apical inferior wall. 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 He was admitted to [facility] February 2020 with ischemic CVA. MRI showed small cluster of acute infarction in the rightfrontoparietal convexity and CTA showed severe right carotid artery stenosis. He underwent right CEA February 2020 without complication. TTE 06/2023: 1. Normal left ventricular size, normal wall thickness, normal global systolic function, calculatedEF of 70 %. 2. The aortic valve is sclerotic, no stenosis and no regurgitation. 3. The mitral valve is sclerotic, trace mitral regurgitation. 4. The ascending aorta is dilated with a maximal diameter of 4.4 cm. 5. The aortic sinus is dilated with a maximal diameter of 3.8 cm. Patient underwent cardiac perfusion rest and stress SPECT today which showed 1. Normal perfusion study? no scintigraphic evidence of stress-induced ischemia. There is a fixed inferior defect most notable at the apex that is most likely related to diaphragmatic attenuation. 2.Limited exercise capacity with potential for reduced sensitivity for detecting ischemia due to the low peak heart rate and peak rate pressure product of 18,573. 3. Normal left ventricular size. 4. Calculated resting left ventricular ejection fraction: 68%. 5. No LV regional wall motion abnormalities. 6. There are no prior nuclear studies for comparison Current Medications include: Toprol-XL 25 MG daily, crestor 20 MG QHS PRN, Sublingual NTG PRN. Today, patient states that every once in a while, he gets pain he assumes is coming from his heart.It is not debilitating but sometimes it is stronger than others. But the pain does make him pause what he is doing. Characterizes it as a dull pain. Does not radiate to his neck, jaw, or shoulder. Always at the same place he tells me. Frequency is twice a week. He does feel it is more frequent thanbefore. He had the chest pain once today, while waiting for his appointment. He has not used his sublingual nitro because he was told to use it when having sharp pain, but he feels his pain is not sharp in nature. Sometimes the pain approaches a very high limit and states the pain goes away when hetakes a deep breath and relaxes. The pain will occur sometimes with exertion. Not sure when his chest pain got worse to his knowledge. Other medical conditions that are present that could contribute to the potential cardiac risk of this operation include: Hx of right MCA ischemic stroke, right frontal ischemic CVA from , and Hx of DVT and PE from 2020 on Apixaban reduced-dose. The patient's functional status is categorized as fair at greater than 1 but less than 2 flights of stairs based on their ability to be able to walkup a flight of stairs or carry groceries into the house. The most physical activity that he has done in the past month has been generally just light walking with his partner that he tolerates. REVIEW OF SYSTEMS REVIEW OF SYSTEMS Negative except as in HPI OBJECTIVE There were no vitals filed for this visit. There is no height or weight on file to calculate BMI. PHYSICAL EXAMINATION General: Alert and in no acute distress. Heart: Normal S1 and S2 heart sounds with no murmurs, gallops, or rubs. Regular rate and rhythm. NoJVD evident. Lungs: Clear to auscultation bilaterally. No wheezes, rhonchi, or rales. Non- labored respiratory effort on room air. Abdomen: Soft, non-tender, without palpable liver or spleen enlargement. Normoactive bowel sounds. Extremities: No edema of the bilateral lower extremities. DIAGNOSTICS Chemistry: Lab Results Component Value Date/Time NA 141 08/14/2024 07:10 AM NA 139 04/11/2020 05:57 PM KSERUM 3.6 08/14/2024 07:10 AM KBLOOD 4.7 04/11/2020 05:36 PM KPLASMA 4.4 04/11/2020 05:57 PM CL 105 08/14/2024 07:10 AM CL 107 04/11/2020 05:57 PM BICARB 25 08/14/2024 07:10 AM BICARB 27 04/14/2020 03:04 AM BICARB 26 04/11/2020 05:57 PM BICARB 28 04/11/2020 05:36 PM BUN 11 08/14/2024 07:10 AM BUN 8 04/11/2020 05:57 PM CREATININE 0.77 08/14/2024 07:10 AM CREATININE 0.82 04/11/2020 05:57 PM EGFRNONBLKAA 83 04/14/2020 03:04 AM GLUCOSE 90 08/14/2024 07:10 AM GLUCOSE 97 04/11/2020 05:57 PM GLUCOSEPOC 103 04/11/2020 05:36 PM ANIONGAP 11 08/14/2024 07:10 AM ANIONGAP 6 (L) 04/11/2020 05:57 PM CALCIUM 8.4 (L) 08/14/2024 07:10 AM CALCIUM 8.1 (L) 04/11/2020 05:57 PM TTE 06/2023: 1. Normal left ventricular size, normal wall thickness, normal global systolic function, calculatedEF of 70 %. 2. The aortic valve is sclerotic, no stenosis and no regurgitation. 3. The mitral valve is sclerotic, trace mitral regurgitation. 4. The ascending aorta is dilated with a maximal diameter of 4.4 cm. 5. The aortic sinus is dilated with a maximal diameter of 3.8 cm. Nuclear Cardiac Perfusion Rest and Stress SPECT 10/09/2024: 1. Normal perfusion study? no scintigraphic evidence of stress-induced ischemia. There is a fixed inferior defect most notable at the apex that is most likely related to diaphragmatic attenuation. 2.Limited exercise capacity with potential for reduced sensitivity for detecting ischemia due to the low peak heart rate and peak rate pressure product of 18,573. 3. Normal left ventricular size. 4. Calculated resting left ventricular ejection fraction: 68%. 5. No LV regional wall motion abnormalities. 6. There are no prior nuclear studies for comparison ASSESSMENT / PLAN #1 Preoperative Exam #2 Preoperative Examination Cardiovascular #3 Hyperlipidemia #4 Embolus Pulmonary Personal History #5 Preanesthetic Medical Exam - Cardiovascular Disease - [facility] consult (clinic) #6 Coronary Artery Disease With Unstable Angina (HCC) This is a pleasant 78-year-old male who is scheduled for transurethral resection of bladder tumor (TURBT) with bilateral stent placement. He has a complex cardiovascular history, including obstructive coronary artery disease (CAD) managed medically (without prior revascularization), chronic stable angina now worsening in frequency and severity, prior right middle cerebral artery (MCA) ischemic stroke, prior deep vein thrombosis (DVT) and pulmonary embolism (PE) (on reduced-dose apixaban), severe right carotid stenosis (status post carotid endarterectomy), hyperlipidemia, and a dilated ascending aorta. He has reported worsening angina and new lower extremity edema, prompting preoperative nuclear cardiac perfusion rest and stress SPECT to clarify perioperative cardiac risk in the context ofpoor or uncertain functional status and multiple risk factors Plan: The most likely cause of his new symptoms encompassing worsening frequency and severity of his chest pain is likely progression of chronic coronary syndrome (CCS), in the setting of unstable angina The RCRI for this patient is 2 (history of ischemic heart disease and prior stroke), which places him in an elevated risk category for major cardiac complications (approximately 4-10% risk for major cardiac events) The patient s functional status is likely <4 METs due to worsening angina and new edema. Poor functional status is an independent predictor of perioperative major adverse cardiac events (MACE) and nearly doubles the risk compared to those with >=4 METs His SPECT study today is not a reliable or accurate study in the context that Limited exercise capacity was noted, resulting in decreased with potential for reduced sensitivity for detecting ischemiadue to the low peak heart rate and peak rate pressure product of 18,573. His symptoms are consistent with unstable angina. He is at high risk of adverse cardiac events, including [place], with anesthesia. Recommend hospital admission for PCI. Will admit patient to [facility] This 78-year-old male with obstructive coronary artery disease, recent worsening angina, prior stroke, DVT/PE on apixaban, hyperlipidemia, and a dilated ascending aorta is scheduled for TURBT with stent placement--an intermediate- risk noncardiac surgery. His poor functional status and high Revised Cardiac Risk Index (RCRI >=2) place him at elevated perioperative cardiac risk. His SPECT findings today are not accurate for interpretation in context of his symptoms given limited exercise capacity noted. Furthermore, his symptoms are consistent with unstable angina. Recommend patient present to [facility] ER for urgent coronary angiography. Handoff was provided to our team there. Patient and family expressed understanding of plan and will proceed to the ER. Patient staffed with Dr. Yariel Alva M.D. [facility] Cardiovascular Diseases Fellow PGY-4 Pager: [phone] Cosigned by Yariel Muniz M.D. at 10/09/2024 4:47 PM CDT documented in this encounter Plan of Treatment Upcoming Encounters Date Type Department Care Team (Late st Contact Info) Description 10/26/2024 12:00 PM CDT Lab Department of Laboratory Medicine and Pathology, [facility] in [place], [place] [address] [place] [phone] Polo Dwyer M.D. [address] [place] [phone] 10/26/2024 1:00 PM CDT Education Department of Oncology in [place], [place] [address] [place] [phone] Polo Dwyer M.D. [address] [place] [phone] 10/26/2024 2:00 PM CDT Infusion Department of Oncology in [place], [place] [address] [place] [phone] Polo Dwyer M.D. [address] [place] [phone] 11/02/2024 12:10 PM CDT Lab Department of Laboratory Medicine and Pathology, [facility], in [address] [phone] Alisa Menjivar M.D. [address] [place] [phone] 11/02/2024 1:00 PM CDT Clinical Support Department of Oncology in [place], [place] [address] [place] [phone] Polo Dwyer M.D. [address] [place] [phone] China Parikh, M.S.W., L.I.C.S.W. [address] [place] [phone] 11/02/2024 2:00 PM CDT Infusion Department of Oncology in [place], [place] [address] [place] [phone] Alisa Menjivar M.D. [address] [place] [phone] 11/12/2024 2:15 PM CDT Office Visit Department of Cardiovascular Medicine in [place], [place] [address] [place] [phone] Elisa Alva M.D. [address] [place] [phone] 11/15/2024 3:30 PM CDT Clinical Communication Virtual Review in [place], [place] 200 [place] [address] 11/16/2024 8:30 AM CDT Lab Department of Laboratory Medicine and Pathology, [facility] in [place], [place] [address] [place] [phone] Alisa Menjivar M.D. [address] [place] [phone] 11/16/2024 10:30 AM CDT Office Visit Department of Oncology in [place], [place] [address] [place] [phone] Alisa Menjivar M.D. [address] [place] [phone] 11/16/2024 2:30 PM CDT Infusion Department of Oncology in [place], [place] [address] [place] [phone] Alisa Menjivar M.D. [address] [place] [phone] 11/23/2024 8:30 AM CDT Lab Department of Laboratory Medicine and Pathology, [facility], in [place], [place] [address] [place] [phone] Alisa Menjivar M.D. [address] [place] [address] 11/23/2024 10:30 AM CDT Infusion Department of Oncology in [place], [place] [address] [place] [address] Alisa Menjivar M.D. [address] [place] [phone] documented as of this encounter Visit Diagnoses Diagnosis Preoperative Exam- Primary Preoperative Examination Cardiovascular Hyperlipidemia Embolus Pulmonary Personal History Preanesthetic Medical Exam Angina Unstable (HCC) documented in this encounter Care Teams Automobile Service Writer Relationship Specialty Start Date End Date Elsewhere, Pcp PCP - General Internal Medicine 10/09/24 documented as of this encounter
--- OUTSIDE RECORDS SUMMARY | 2024-10-09 17:00 | XMS_ITS | Encounter Summary ---
Author Organization [facility] Address [address] [place] [address] Care Team Providers Care President [place] Name Role Phone Elsewhere, Pcp Primary Care Provider Unavailabl e Reason for Visit * Reason Comments Chest Pain Encounter Details Date Type Department Care Team (Latest Contact Info) Description 10/09/2024 5:00 PM CDT - 10/12/2024 4:06 PM CDT Hospital Encounter [facility], [facility], Fifth Floor [address] [place] [address] [phone] Zuri Harvey, P.A.-C., M.S. [address] [place] [phone] Spencer Marroquin M.D. [address] [place] [address] [phone] Terry Oliveira M.D., Ph.D. [address] [place] [address] [phone] Iva Ascencio M.D., Ph.D. [address] [place] [phone] Angina Unstable (HCC) (Primary Dx); Pain Chest; Decline Functional Status [R53.81]; Malaise [R53.81] Discharge Disposition: Home or Self Care Social History Tobacco Use Types Packs/Day Years Used Date Smoking Tobacco: Former Smokeless Tobacco: Never Alcohol Use Standard Drinks/Week Comments Yes 3 (1 standard drink = 0.6 oz pur e alcohol) 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 Discharge Provider: Iva Ascencio M.D. Primary Team: [facility] CARD 2 Primary Care Providers: Elsewhere, Pcp [...] CORONARY ANGIOGRAPHY Grey Gomez M.D.Sherafati, Alborz, M.D. [facility] ROMB CCL DISCHARGE DISPOSITION Home or Self Care [1] ACTIVE ISSUES REQUIRING FOLLOW UP Discharge Notes from your Provider Team You were discharged from the [facility] CVD 2 Service. Please identify this service [...] prior to your follow-up appointments, contact the [facility] Stretcher Leveler Operator at [phone] and ask to speak with the Cardiology [...] for ACS, and was admitted to the [facility] CARD 2 service for further management and [...] Progress Notes * Adry Gutierres, Pharm.D., R.Ph., [facility] - 10/12/2024 7:45 AM CDT Pharmacist Progress [...] ongoing Plan discussed with RST CARD 2 Hardware Manager, Dr. Marroquin, who was present during coats portions of the evaluation today. Please page the RST CARD 2 service pager at [phone] with any questions. Clari Daniel PGY 1 Internal Medicine Personal Pager: [phone] 10/11/24 * Spencer Marroquin M.D. - 10/11/2024 [...] at the ostium of the ramus. The AUTOMOTIVE SERVICES MANAGER of the right coronary artery receives collaterals [...] He was on his cell phone, asked Solid Plasterer to return later. PLAN Case Management will attempt to see patient at a later time, when available. * Adry Gutierres Pharm.D., R.Ph., [facility] - 10/11/2024 7:37 AM CDT Pharmacist Progress [...] MD PGY-3 Urology Urology chief service pager: [phone] from [phone] Emergency call pager: [phone] from [phone] This was discussed with chief urology resident, [...] ongoing Plan discussed with RST CARD 2 Hardware Manager, Dr. Marroquin, who was present during coats portions of the evaluation today. Please page the Siklu 2 service pager at [phone] with any questions. Clari Daniel PGY 1 Internal Medicine Personal Pager: [phone] 10/10/24 * Michaelle Nicole RMakN. - 10/10/2024 10:46 AM CDT SUBJECTIVE Attempted to see patient to address discharge planning. OBJECTIVE Patient not seen at this time. ASSESSMENT Unable to complete assessment as patient was not able to participate in assessment at this time. PLAN Case Management will attempt to see patient at a later time, when available. * Adry Gutierres Pharm.D., R.Ph., [facility] - 10/10/2024 7:09 AM CDT Pharmacist Progress [...] BCCP * Alberto De Paz Pharm.D., R.Ph., [facility] - 10/09/2024 9:57 PM CDT Images [...] Spencer Marroquin M.D. CT CT Job ID: [id number] * Clarissa Calle Sr., M.D. - 10/09/2024 [...] for the past couple of months. The paper conservator recommended that he first fix any anginal [...] he no longer needed to be on detention anticoagulation. Patient has a history of hematuria [...] Hernandez Samayoa was being seen at the [facility] cardiology out patient clinic for pre-operative consultation on his upcoming TURBT with bilateral stent placement planed forJuly 2024. During the visit he mentioned to the paper conservator's that he had been having on and [...] on his description of his symptoms a paper conservator at the outpatient clinic were concerned for unstable angina and recommended [facility] go to [facility] EDfor workup and possible urgent coronary Angiography. ED course: Upon arrival to [facility] ER Mr. Ng denied any chest [...] of small OM1 and distal RCA AUTOMOTIVE SERVICES MANAGER. Social History: Former Smoker, quit 25 - [...] & Screen Expiration 10/12/2024 23:59 Testing Location [place] CBC without Differential Collection Time: 10/09/24 11:30 [...] patient. However during his visit to the [facility] cardiology outpatient clinic regarding his upcoming Bladder [...] Clarissa Calle MD Internal Medicine, PGY-1 Pager: [phone] * Mario Musa M.D. - 10/09/2024 7:32 PM CDT [facility] CARD 2 SENIOR LABORER SHIPYARD SUPERVISORY ADMISSION NOTE SUBJECTIVE Mr. Samayoa is [...] and diffuse RCA disease with evidence of AUTOMOTIVE SERVICES MANAGER (Outside CT chest/coronary angiogram 01/28/2020) #. Chronic [...] ACS, and is now admitted to the [facility] CARD 2 service for further management and [...] plan will be formally discussed with the SeirathermT CARD 2 Hardware Manager, Spencer Arenas M.D., within 24 hours. Please page the Siklu 2 service pager with any questions. Mario [...] 78 y.o. 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 Handouts provided: Bathroom Safety Equipment [id number], Preventing Falls [id number], Home Safety Suggestions [id number], Adaptive Equipment Catalog/List of Vendors Team Communication: [...] with medication set up/administration, Assistance with financial report service sales agent, Assistance with transportation, Assistance with shopping, Assistance [...] with higher complexity tasks such as financial report service sales agent, shopping, meal preparation, and driving. Due to [...] CORONARY ANGIOGRAPHY; Surgeon: Grey Gomez M.D.; Location: [facility] CCL COLONOSCOPY pt thinks hes had 2 [...] 78 y.o. 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 Vital Signs: HR [...] Tolerates 10-20 minutes of activity Outcome Measures: [facility] Inpatient Short Form: [facility] Basic Mobility (V.2) How much help [...] CORONARY ANGIOGRAPHY; Surgeon: Grey Gomez M.D.; Location: [facility] COLONOSCOPY pt thinks hes had 2 TONSILLECTOMY WISDOM TOOTH EXTRACTION * Carissa Perez RMakNMak - 10/11/2024 1:59 PM CDTAssociated Order(s): IP CONSULT TO CARE MANAGEMENT; IP CONSULT TO CARE MANAGEMENT Discharge Planning Assessment SUBJECTIVE Assessment Information Referral Data Referral Source: Early Screen for Discharge Planning Referral Name: ESDP score 14 Previous Assessment: No Television Equipment Operator Services Used: No Primary Language: Armenian Television Equipment Operator Services Used: No Person(s) Present During Interview: [...] Primary Care Physician Family Medicine 10/09/24 Address: [address] [place] [phone] Additional Resources: Additional Services: NA Anticipated Needs Functional Status: None Assistive Devices: None Anticipated Modifications to the Patient's Home: None Transportation Needs: Support from family Does the patient need discharge transport arranged?: No Phone Number for Ride/Caregiver: Jose [phone] Anticipated Discharge Destination: Home or Self Care Referrals Initiated: None rivet sorter provided Care Management Brochure ([id number]), information regarding the dismissal process, and the Senior Linkage Line ([place] Board on Aging) handout. ASSESSMENT / PLAN ASSESSMENT: The rivet sorter met with Hernandez Samayoa to discuss his current hospitalization and home goingneeds. The patient was accompanied by girlfriend, Roderick. The patient was a reliable historian. The role of rivet sorter was reviewed. The patient reviewed his prior [...] Patient is requesting information regarding private pay [facility]. Patient would like PT/OT assessment. Service [...] ready. Support will be provided by self. rivet sorter recommendations include: discussing needed assistance with family, [...] course) Transportation upon dismissal will be Jose. rivet sorter encouraged the patient to reach out with [...] this time Estimated Needs: Total Calorie Needs: 4649-3123 calories/day Method to Estimate Energy Needs: kcal/kg [...] about patient's nutritional care please contact pager [phone] on weekdays 07:30-16:00 or [phone] on weekends/holidays ([facility]) [phone]. [1] Past Medical History: Diagnosis Date Apnea [...] tele monitory discontinued. Patient is going home [facility] and will be transported home by family. Patient transferred to front entrance by wheelchair with transportstaff and family. Problem: Risk for Compromised Skin Integrity-Other Varnish Maker(s) Goal: Risk for Compromised Skin Integrity-Other Varnish Maker(s) 10/12/20241557 by Liat Sam, R.N. Outcome: Adequate [...] RST CARD 2 Local Oncologist: No care grocery team member to display [facility] Oncologist(s): No care grocery team member to display Reason(s) for consult: New/suspected cancer [...] has follow-up within the week with Dr. oRjas and consultation with medical oncology same day. [...] any further questions or concerns arise at [phone](service pager), M-F 7:00 a.m. to 7:00 p.m, Howard Hardware Manager on Consult service. Elizabeth Kennedy APRN, C.N.P., M.S.N. * Sakshi Ochoa R.N. - 10/11/2024 4:36 AM CDT Problem: Risk for Compromised Skin Integrity-Other Varnish Maker(s) Goal: Risk for Compromised Skin Integrity-Other Varnish Maker(s) Note: RN assess for pain and adjacent [...] BMI 26.12 kg/m?? * Janie Pal R.N., [facility]- - 10/10/2024 8:30 AM CDT Proactive Integration [...] screening, we have the following recommendations: [] direct sales consultant visit [x] Discuss with primary team to [...] education/support-primary team to place order [] Recommend Machine Ii Coremaker Services consultation- primary nursing to place order [] Recommend social work/substance use consultation -primary team to place order [] Recommend outpatient psychiatric follow-up - primary team to place psychiatric consult order to coordinate [] No acute psychiatric intervention needed; please reach out if questions or concerns. [] Other [place] [phone] with questions. Janie Pal R.N., [facility] 10/10/2024 * Desiree Mckeon R.N. - 10/10/2024 [...] in this encounter ED Notes * Zuri Harvey, PTee.-C., M.S. - 10/09/2024 5:17 PM CDT [...] patient was recommended to present to the [facility] ED to expedite hospital admission for urgent PCI. He denies any current chest pain here in the ED. He is currently anticoagulated on Eliquis. He denies any fever, cough, hemoptysis, increased edema, or shortness of breath. There are no other complaints at this time. History provided by: Patient and medical records employment evaluator/case manager needed/used: no REVIEW OF SYSTEMS Reason unable [...] for ACS, and was admitted to the [facility] CARD 2 service for further management and [...] Lab Department of Laboratory Medicine and Pathology, [facility] in [place], [place] [address] [place] [phone] Polo Dwyer M.D. [address] [place] [phone] 10/26/2024 1:00 PM CDT Education Department of Oncology in [place], [place] [address] [place] [phone] Polo Dwyer M.D. [address] [place] [phone] 10/26/2024 2:00 PM CDT Infusion Department of Oncology in [place], [place] [address] [place] [phone] Polo Dwyer M.D. [address] [place] [phone] 11/02/2024 12:10 PM CDT Lab Department of Laboratory Medicine and Pathology, [facility], in [place], [place] [address] [place] [phone] Alisa Menjivar M.D. [address] [place] [phone] 11/02/2024 1:00 PM CDT Clinical Support Department of Oncology in [place], [place] [address] [place] [phone] Polo Dwyer M.D. [address] [place] [phone] China Parikh M.S.W., L.I.C.S.W. [address] [place] [address] [phone] 11/02/2024 2:00 PM CDT Infusion Department of Oncology in [place], [place] [address] [place] [phone] Alisa Menjivar M.D. [address] [place] [phone] 11/12/2024 2:15 PM CDT Office Visit Department of Cardiovascular Medicine in [place], [place] [address] [place] [phone] Elisa Alva M.D. [address] [place] [phone] 11/15/2024 3:30 PM CDT Clinical Communication Virtual Review in [place], [place] 200 [place] [phone] 11/16/2024 8:30 AM CDT Lab Department of Laboratory Medicine and Pathology, [facility] in [place], [place] [address] [place] [phone] Alisa Menjivar M.D. [address] [place] [phone] 11/16/2024 10:30 AM CDT Office Visit Department of Oncology in [place], [place] [address] [place] [phone] Alisa Menjivar M.D. [address] [place] [phone] 11/16/2024 2:30 PM CDT Infusion Department of Oncology in [place], [place] [address] [place] [phone] Alisa Menjivar M.D. [address] [place] [phone] 11/23/2024 8:30 AM CDT Lab Department of Laboratory Medicine and Pathology, [facility] in [place], [place] [address] [place] [phone] Alisa Menjivar M.D. [address] [place] [phone] 11/23/2024 10:30 AM CDT Infusion Department of Oncology in [place], [place] [address] [place] [phone] Alisa Menjivar M.D. [address] [place] [phone] documented as of this encounter Procedures Procedure [...] Renal Function Panel (10/12/2024 1:08 PM CDT) [facility] Potassium, S 5.0 3.6 - 5.2 [...] ADD-ON Final Res ult Performing Organization Address [facility]/ZIP Co de Phone Number [facility] [address] DTL [facility] 200 [place] [address] * (ABNORMAL) CBC without Differential (10/12/2024 1:08 [...] 1:08 PM CDT 10/12/2024 1:42 PM CDT us Mila Burgess M.D. LAB BLOOD ADD-ON Final Res ult [facility] [address] [place] [address], [facility] DTL [facility] 200 [place] [address] * CT Lymph Node Biopsy (10/11/2024 12:52 [...] series 302, image 166. A total of [id number] cores were obtained from the lymph node [...] series 302, image 166. A total of [id number] cores were obtained from the lymph node [...] external iliac lymph node biopsy. NR Mila Burgess M.D. IM CT PROCEDURES Final Re sult * (ABNORMAL) [...] features. Immunohistochemic al stains were performed at [facility] (block A1). 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 Digital imaging was used in the diagnostic assessment of this case. (A) 10/15/2024 12:58 PM CDT DTL Tissue (Pelvis, Left) 10/11/2024 11:32 AM CDT us Mila Burgess M.D. LAB SURG PATH ORDERABLES F inal Result [facility] [address] [place] [address], [facility] DTL [address] [facility] [address] [place] [address] * (ABNORMAL) Renal Function Panel (10/11/2024 8:38 [...] M.D. LAB BLOOD ADD-ON Final Res ult [facility] [address] [place] [address], [facility] [address] [place] [address] * (ABNORMAL) CBC without Differential (10/11/2024 8:38 [...] 8:38 AM CDT 10/11/2024 10:08 AM CDT us Mila Burgess M.D. LAB BLOOD ADD-ON Final Res ult [facility] [address] [place] [address], [facility] [address] [place] [address] * CORONARY ANGIOGRAPHY (10/10/2024 4:18 PM CDT) Anatomical Region Laterality Modality X-Ray Angiograph y 10/10/2024 3:43 PM CDT Narrative 10/10/2024 4:58 PM CDT For the complete report, see the Order-Level Documents. PROCEDURE TYPES 1. CORONARY ANGIOGRAPHY FINAL DIAGNOSIS 1. Severe coronary artery atherosclerosis 2. AUTOMOTIVE SERVICES MANAGER (Chronic Total Occlusion) 3. Coronary artery collateral [...] disease as well. There is an RCA AUTOMOTIVE SERVICES MANAGER with good left to right collaterals. Discussed [...] left anterior descending artery and second septal fiberglass ski maker. The right posterolateral segment is 99% obstructed [...] DIAGNOSIS 1. Severe coronary artery atherosclerosis 2. AUTOMOTIVE SERVICES MANAGER (Chronic Total Occlusion) 3. Coronary artery collateral [...] There was an iliacstenosis overcome using a STORQ wire, and the 5 Fr catheters easilytraversed the stenosis. We then performed the angiogram outline below.Briefly, mild LM, severe mid LAD disease (diffuse moderate proximal LADdisease), hazy severe ostial ramus lesion, and likely proximal LCx diseaseas well. There is an RCA AUTOMOTIVE SERVICES MANAGER with good left to right collaterals.Discussed with [...] distal left anterior descendingartery and second septal fiberglass ski maker. The right posterolateral segment is 99% obstructed [...] M.D. LAB URINE ORDERABLES [place] [address], [facility] [address] [place] [address] * (ABNORMAL) Dipstick, Urine (10/10/2024 5:41 AM [...] ORDERABLES Final Resu lt Performing Organization Address City/[facility]/ZIP Co de Phone Number [facility] [address] [place] [address] * pH, Urine (10/10/2024 5:41 AM CDT) pH, U 5.8 4.5 - 8.0 10/10/2024 6:1 9 AM CDT DT Urine 10/10/2024 5:41 AM CDT 10/10/2024 5:58 AM CDT us Mario Musa M.D. LAB URINE ORDERABLES Final Resu lt Performing Organization Address City/[facility]/ZIP Co de Phone Number [facility] [address] [place] [address], [facility]3] 200 [place] [address] * Osmolality, Urine (10/10/2024 5:41 AM CDT) Osmolality, U 215 150 - 1150 mOsm/kg 10/10/2024 6:19 AM CDT DT Urine 10/10/2024 5:41 AM CDT 10/10/2024 5:58 AM CDT us Mario Musa M.D. LAB URINE ORDERABLES Final Resu lt Performing Organization Address City/[facility]/ZIP Co de Phone Number [facility] [address] [place] [address] * (ABNORMAL) Urinalysis, with Microscopic: Urine, Catheter [...] Burgess M.D. LAB URINE ORDERABLES Final Result [facility] [address] [place] [address], [facility]3] [address] [place] [address] * ECG 12 Lead (10/10/2024 4:13 AM CDT) Ventricular Rate ECG/Min 58 BPM MUSE MO Interval 168 ms MUSE QRSD Interval 76 ms MUSE QT Interval 418 ms MUSE QTC Interval 410 ms MUSE P [place] 79 degrees MUSE R [place] 24 degrees MUSE T Wave [place] 17 degrees MUSE 10/10/2024 4:13 AM CDT [...] and management can be found on the Digilabert site. Link [email or web address]/clinical-answers/[email or web address] Procedure Note Judy Ibrahim M.D. - 10/10/2024 [...] thrombosis and management can be found on theAskNeurescue site. [email or web address]/clinical-answers/[email or web address]/cpm [email or web address] 1725 IMPRESSION: 1. Negative for acute [...] intraluminal Molina catheter. Decompressed lumen. Procedure Note Juyd Ibrahim M.D. - 10/10/2024 EXAM: US KIDNEYS [...] Renal Function Panel (10/09/2024 11:30 PM CDT) Pathologist [facility] Potassium, S 4.5 3.6 - 5.2 mmol/L [...] ADD-ON Final Res ult Performing Organization Address City/[facility]/ZIP Co de Phone Number [facility] [address] [place] [address], [facility] DTL [facility] [address] [place] [address] * (ABNORMAL) Troponin T, 5th Generation (10/09/2024 11:30 PM CDT) Troponin T, 5th gen 31(H) <=15 ng/L 10/09/2024 11:53 PM CDT STMA Blood (Blood, Venous) 10/09/2024 11:30 PM CDT 10/09/2024 11:37 PM CDT us Mila Burgess M.D. LAB BLOOD ADD-ON Final Res ult Performing Organization Address City/[facility]/ZIP Co de Phone Number [facility] [address] [place] [address], [facility] STMA [facility] [address] [place] [address] * (ABNORMAL) CBC without Differential (10/09/2024 11:30 [...] 11:30 PM CDT 10/09/2024 11:53 PM CDT Mila Burgess M.D. LAB BLOOD ADD-ON Final Res ult [place] [address] [place] [address], [place] [address] [place] [address] * Type and Screen (with Reflex Antibody ID) (10/09/2024 11:25 PM CDT) Pathologist [facility] ABORh O Neg Not applicable 10/10/2024 1:17 AM CDT STRM Antibody Screen Negative Negative 10/10/2024 1:30 AM CDT STRM Type & Screen Expiration 10/12/2024 23:59 10/10/2024 1:17 AM CDT STRM Testing Location [place] DEFAULT 10/10/2024 12:50 AM CDT STRM Blood (Blood, Venous) 10/09/2024 11:25 PM CDT 10/10/2024 12:50 AM CDT us Mila Burgess M.D. LAB BLOOD BANK TEST ORDERA BLES Final Result Performing Organization Address [facility] Co de Phone Number [facility] [address] [place] [address], [place] STRM [facility] [address] [place] [address] * ECG 12 Lead (10/09/2024 10:00 PM CDT) Ventricular Rate ECG/Min 58 BPM MUSE MO Interval 172 ms MUSE QRSD Interval 80 ms MUSE QT Interval 412 ms MUSE QTC Interval 404 ms MUSE P [place] 41 degrees MUSE R [place] 38 degrees MUSE T Wave [place] 33 degrees MUSE 10/09/2024 10:0 0 PM [...] ORDERABLES Final Resu lt Performing Organization Address [facility] Co de Phone Number MUSE NA * ECG 12 Lead (10/09/2024 8:57 PM CDT) Ventricular Rate ECG/Min 63 BPM MUSE MO Interval 166 ms MUSE QRSD Interval 76 ms MUSE QT Interval 398 ms MUSE QTC Interval 407 ms MUSE P [place] 24 degrees MUSE R [place] 7 degrees MUSE T Wave [place] 0 degrees MUSE 10/09/2024 8:57 PM CDT [...] M.S. LAB BLOOD TROPONIN Fi nal Result [facility] [address] [place] [address], [facility] [address] [place] [address] * DX Chest AP or PA and [...] 10/01/2024. Partial visualization of postoperative changes lumbarspine. Zuri Harvey P.A.-C., M.S. IMG DIAGNOSTIC IMAGIN G PROCEDURES Final Result * APTT (Activated Partial Thromboplastin Time) (10/09/2024 5:25 PM CDT) [facility] Activated Partial Thrombopl Time, P 28 25 - 37 sec 10/09/2024 5:41 PM CDT RUST Blood (Blood, Venous) 10/09/2024 5:25 PM CDT 10/09/2024 5:31 PM CDT Zuri Harvey P.A.-C., M.S. LAB BLOOD ADD-ON Gabriella l Result [facility] [address] [place] [address], [facility] [address] [place] [address] * Prothrombin Time (PT) (10/09/2024 5:25 PM CDT) [facility] Prothrombin Time, P 12.4 9.4 - 12.5 sec 10/09/2024 5:38 PM CDT [facility] INR 1.1 0.9 - 1.1 10/09/2024 5:38 PM CDT [facility] Comment: ----ADDITIONAL INFORMATION---- Standard intensity warfarin therapeutic range: 2.0 to 3.0 High intensity warfarin therapeutic range: 2.5 to 3.5 Blood (Blood, Venous) 10/09/2024 5:25 PM CDT 10/09/2024 5:31 PM CDT Zuri Harvey P.A.-C., M.S. LAB BLOOD ADD-ON Gabriella l Result [facility] [address] [place] [address] * (ABNORMAL) Troponin T, Baseline with 2 Hour/6 Hour Reflex Biomarker Panel (10/09/2024 5:25 PM CDT) [facility] Troponin T, Baseline, 5th gen 33(H) <=15 ng/L 10/09/2024 6:22 PM CDT [facility] Blood (Blood, Venous) 10/09/2024 5:25 PM CDT 10/09/2024 5:31 PM CDT Zuri Harvey P.A.-C., M.S. LAB BLOOD TROPONIN Fi nal Result [facility] [address] [place] [address] * (ABNORMAL) Basic Metabolic Panel (10/09/2024 5:25 PM CDT) [facility] Potassium, P 4.8 3.6 - 5.2 mmol/L [...] M.S. LAB BLOOD ADD-ON Gabriella l Result [facility] [address] [place] [address], [facility] [address] [place] [address] * (ABNORMAL) CBC with Differential, Blood (10/09/2024 [...] M.S. LAB BLOOD ADD-ON Gabriella l Result [facility] [address] [place] [address], [facility] STMA [facility] [address] [place] [address] DH[facility] [address] [place] [address] * ECG 12 Lead (10/09/2024 5:12 PM CDT) Ventricular Rate ECG/Min 63 BPM MUSE MO Interval 170 ms MUSE QRSD Interval 74 ms MUSE QT Interval 392 ms MUSE QTC Interval 401 ms MUSE P [place] 8 degrees MUSE R [place] 34 degrees MUSE T Wave [place] 34 degrees MUSE 10/09/2024 5:12 PM CDT [...] change was found Reviewed by JIM Butts Zuri Harvey P.A.-C., M.S. ECG ORDERABLES [...] is less than 8 breaths/minute., Starting on Tue10/11/24 at 1215, Intraprocedure (RAD), Subsequent doses Given [...] or score 4-6 of 10, Starting on 10/10/24 at 0427, For 1 dose, Urinary System [...] Daily PRN, constipation, Starting on Tue10/09/24 at 2027, Ordered sequence of administration: polyethylene glycol, then [...] Catheter and Rapid Infusion Catheter, Starting on Tue10/11/24 at 0847, Prior to blood sampling, post blood transfusion or post blood sampling. sodium chloride 0.9 % injection 3 mL 3 mL, intravenous, As needed, line care, Peripheral Intravenous Catheter and Rapid Infusion Catheter, Starting on Tue10/11/24 at 0847, Prior to and following infusion [...] sources 0312 (Given - Provider: Molly Massey RCollins.)0932 (Given - Provider: Mariam Geiger R.N.)1208 (Given - Provider: Donita Solis R.Jamal.)1325 (MAR Hold - Provider: Transfer Provider, Automatic - Reason: Patient not available)1700 (Dose Auto Held - Provider: Transfer Provider, Automatic)1728 (MAR Unhold - Provider: Transfer Provider, Automatic)2120 (Given - Provider: Donita Solis R.N.) 0842 (Given - Provider: Merna Jang R.N.)1318 [...] or split tablet. 1318 (Given - Provider: Pema ColeN.) 0802 (Given - Provider: Liat Sam R.N.) finasteride tablet 5 mg (Proscar) 5 mg, oral, Daily, First dose on Tue10/10/24 at 0900, See tube feeding guidelines for tube feeding administration instructions. 0932 (Given - Provider: Mariam Geiger R.N.)1325 (MAR Hold - Provider: Transfer Provider, Automatic - Reason: Patient not available)1728 (MAR Unhold - Provider: Transfer Provider, Automatic) 0846 (Given - Provider: Merna Jang RMakN.) 0803 (Given - Provider: Liat Sam RCollins.) metoprolol succinate 24 hr tablet 25 mg (Toprol XL) 25 mg, oral, Daily, First dose on Tue10/10/24 at 0900, Do NOT crush or chew. Tablet may be split on score if needed. 0931 (Given - Provider: Mariam Geiger R.N.)1325 (MAR Hold - Provider: Transfer Provider, Automatic - Reason: Patient not available)1728 (MAR Unhold - Provider: Transfer Provider, Automatic) 0842 [...] Transfer Provider, Automatic - Reason: Patient not available)1727 (MAY Unhold - Provider: Transfer Provider, Automatic)2049 (Given - Provider: Donita Solis R.N.) 2006 (Given - Provider: Kerry Caicedo R.N.) [...] Provider, Automatic)2049 (Given - Provider: Donita Solis R.N.) 0841 (Given - Provider: Merna Jang R.N.)2006 [...] Merna Jang R.N.) 0803 (Given - Provider: Pema CroonelNMak) sulfamethoxazole-trimetho prim 800-160 mg per tablet 1 [...] 1.2 0009 (New Bag - Provider: Desiree Mckeon, R.N.)0350 (Stopped - Provider: Desiree Mckeon R.N.) [...] period. 0512 (Given - Provider: Desiree Mckeon RTiffanie) midazolam (PF) injection 0.5 mg (Versed) (CANCELED) 0.5 mg, intravenous, Every 2 min PRN, sedation, RASS -1, Starting on Tue10/10/24 at 1524, Intraprocedure (CV), May repeat every 2 minutes for a maximum of 5 mg. Do not give if respiratory rate is less than 8 breaths/minute. 1527 (Given - Provider: Jannette Otoole RMakN.)1531 (Given - Provider: Jannette Otoole R.N.) midazolam [...] Max 3 doses, Starting on Tue10/09/24 at 2033, May administer up to 3 doses per [...] Avoid mixing with starch-based thickened liquids. 1325 (MAR Hold - Provider: Transfer Provider, Automatic - Reason: Patient not available)1728 (MAY Unhold - Provider: Transfer Provider, Automatic)2228 (Given [...] infusions. documented in this encounter Care Teams President [place] Relationship Specialty Start Date End Date Elsewhere, Pcp PCP - General Internal Medicine 10/09/24 documented as of this encounter
--- OUTSIDE RECORDS SUMMARY | 2024-10-10 13:26 | XMS_ITS | Encounter Summary ---
Author Organization [facility] Address [address] [place] [address] Care Team Providers Care Bone Drier Operator Name Role Phone Elsewhere, Pcp Primary Care Provider Unavailabl e Reason for Visit * Reason Comments Chest Pain Encounter Details Date Type Department Care Team (Late st Contact Info) Description 10/10/2024 1:26 PM CDT - 10/10/2024 2:41 PM CDT Surgery Division of Cardiovascular Diseases in [place], [place] [address] [place] [phone] Grey Gomez M.D. [address] [place] [phone] CORONARY ANGIOGRAPHY Social History Tobacco Use Types Packs/Day Years Used Date Smoking Tobacco: Former Smokeless Tobacco: Never Alcohol Use Standard Drinks/Week Comments Yes 3 (1 standard drink = 0.6 oz pur e alcohol) [facility] Utilities Answer Date Recorded In the past 12 months has iyzico, gas, oil, or water [employer] threatened to shut off services in your [...] your living situation today? I have a [facility] place to live 10/09/2024 Education Answer Date Recorded What is the highest level of school you have completed or the highest degree you have received? 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 Primary Team: [facility] CARD 2 Primary Care Providers: [...] CORONARY ANGIOGRAPHY Grey Gomez M.D.Sherafati, Alborz, M.D. [facility] ROMB CCL DISCHARGE DISPOSITION Home or Self Care [1] ACTIVE ISSUES REQUIRING FOLLOW UP Discharge Notes from your Provider Team You were discharged from the [facility] CVD 2 Service. Please identify [...] prior to your follow-up appointments, contact the [facility] Newborn Photographer at [phone] and ask to speak with the Cardiology 2 Service OUTPATIENT FOLLOW UP Scheduled Appointments 10/16/2024 9:15 AM [facility] URO INTAKE VISIT Admitting/Central Scheduling [...] for ACS, and was admitted to the [facility] CARD 2 service for further [...] Progress Notes * Adry Gutierres, Pharm.D., R.Ph., [facility] - 10/12/2024 7:45 AM CDT Pharmacist Progress [...] ongoing Plan discussed with RST CARD 2 Mcat Tutor, Dr. Marroquin, who was present during coats portions of the evaluation today. Please page the [employer] 2 service pager at [phone] with any questions. Clari Daniel PGY 1 Internal Medicine Personal Pager: [phone] 10/11/24 * Spencer Marroquin M.D. - 10/11/2024 [...] at the ostium of the ramus. The VALVER of the right coronary artery receives collaterals [...] He was on his cell phone, asked Digital Recruiter to return later. PLAN Case Management will [...] MD PGY-3 Urology Urology chief service pager: [phone] from [phone] Emergency call pager: [phone] from [phone] This was discussed with chief urology resident, [...] Malignant neoplasm of the bladder #. Possible EKVIN stage I-II without history of CKD (baseline [...] ongoing Plan discussed with RST CARD 2 Mcat Tutor, Dr. Marroquin, who was present during coats portions of the evaluation today. Please page the RST CARD 2 service pager at [phone] with any questions. Clari Daniel PGY 1 Internal Medicine Personal Pager: [phone] 10/10/24 * Michaelle Nicole R.N. - 10/10/2024 10:46 AM CDT SUBJECTIVE Attempted to see patient to address discharge planning. OBJECTIVE Patient not seen at this time. ASSESSMENT Unable to complete assessment as patient was not able to participate in assessment at this time. PLAN Case Management will attempt to see patient at a later time, when available. * Adry Gutierres Pharm.D., R.Ph., [facility] - 10/10/2024 7:09 AM CDT Pharmacist [...] Spencer Marroquin M.D. CT CT Job ID: [id number] * Clarissa Calle Sr., M.D. - 10/09/2024 [...] for the past couple of months. The livestock nutritionist recommended that he first fix any anginal [...] he no longer needed to be on long term acute care registered nurse anticoagulation. Patient has a history of hematuria [...] Hernandez Samayoa was being seen at the [facility] cardiology out patient clinic for pre-operative consultation on his upcoming TURBT with bilateral stent placement planed forJuly 2024. During the visit he mentioned to the livestock nutritionist's that he had been having on and [...] on his description of his symptoms a livestock nutritionist at the outpatient clinic were concerned for unstable angina and [facility] EDfor work[facility] and possible urgent coronary Angiography. ED course: Upon arrival to [facility] ER Mr. Ng denied any chest [...] stenosis of small OM1 and distal RCA VALVER. Social History: Former Smoker, quit 25 - [...] & Screen Expiration 10/12/2024 23:59 Testing Location [place] CBC without Differential Collection Time: 10/09/24 11:30 [...] Clarissa Calle MD Internal Medicine, PGY-1 Pager: [phone] * Mario Musa M.D. - 10/09/2024 7:32 PM CDT [facility] 2 SENIOR QUALITY RN SUPERVISORY ADMISSION NOTE SUBJECTIVE Mr. Samayoa is a 78 y.o. year old male who initially presented in the outpatient setting for a preanesthetic medical evaluation for a surgical evaluation for a bladder mass but was describing worsening chest discomfort concerning for ACS, and is now admitted to the [facility] 2 service for further management and cares. [...] and diffuse RCA disease with evidence of VALVER (Outside CT chest/coronary angiogram 01/28/2020) #. Chronic [...] ACS, and is now admitted to the [facility] CARD 2 service for further [...] formally discussed with the RST CARD 2 Mcat Tutor, Spencer Arenas M.D., within 24 hours. Please [...] 78 y.o. 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 Handouts provided: Bathroom Safety Equipment [id number], Preventing Falls AL4834-28, Home Safety Suggestions [id number], Adaptive Equipment Catalog/List of Vendors Team Communication: [...] Assistance with medication set up/administration, Assistance with statistical financial analyst, Assistance with transportation, Assistance with [...] safety with higher complexity tasks such as statistical financial analyst, shopping, meal preparation, and driving. [...] Total Treatment Time (min): 49 min MARYLIN iSngh [1] Past Medical History: Diagnosis Date Apnea [...] 78 y.o. 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 Signs: HR [...] Name: ESDP score 14 Previous Assessment: No Refrigerator Assembler Services Used: No Primary Language: Persian Refrigerator Assembler Services Used: No Person(s) Present During Interview: [...] Care Physician Family Medicine 10/09/24 Address: [facility] [phone] Additional Resources: Additional Services: NA Anticipated Needs Functional Status: None Assistive Devices: None Anticipated Modifications to the Patient's Home: None Transportation Needs: Support from family Does the patient need discharge transport arranged?: No Phone Number for Ride/Caregiver: Jose [phone] Anticipated Discharge Destination: Home or Self Care Referrals Initiated: None slot technician provided Care Management Brochure ([id number]), information regarding the dismissal process, and the Senior Linkage Line ([place] Board on Aging) handout. ASSESSMENT / PLAN ASSESSMENT: The slot technician met with Hernandez Samayoa to discuss his current hospitalization and home goingneeds. The patient was accompanied by girlfriend, Roderick. The patient was a reliable historian. The role of slot technician was reviewed. The patient reviewed his prior [...] Patient is requesting information regarding private pay [facility]. Patient would like PT/OT assessment. Service team [...] ready. Support will be provided by self. slot technician recommendations include: discussing needed assistance with family, [...] course) Transportation upon dismissal will be Jose. slot technician encouraged the patient to reach out with [...] this time Estimated Needs: Total Calorie Needs: 0756-1007 calories/day Method to Estimate Energy Needs: kcal/kg [...] about patient's nutritional care please contact pager [phone] on weekdays 07:30-16:00 or [phone] on weekends/holidays ([facility]) [phone]. [1] Past Medical History: Diagnosis Date Apnea [...] family. Problem: Risk for Compromised Skin Integrity-Other Leather Polisher(s) Goal: Risk for Compromised Skin Integrity-Other Leather Polisher(s) 10/12/2024 155 by Liat Sam, R.N. Outcome: [...] 2:51 PM CDT [facility] Primary Service: RST CARD 2 Local Oncologist: No care molybdenum steamer operator to display [facility] Oncologist(s): No care molybdenum steamer operator to display Reason(s) for consult: New/suspected [...] any further questions or concerns arise at [phone](service pager), M-F 7:00 a.m. to 7:00 p.m, [facility] Mcat Tutor on Consult service. Elizabeth Kennedy APRN, Shayna.N.PMak, M.S.N. * Sakshi Ochoa R.N. - 10/11/2024 4:36 AM CDT Problem: Risk for Compromised Skin Integrity-Other Leather Polisher(s) Goal: Risk for Compromised Skin Integrity-Other Leather Polisher(s) Note: RN assess for pain and adjacent [...] BMI 26.12 kg/m?? * Janie Pal R.N., [facility]- - 10/10/2024 8:30 AM CDT Proactive [...] screening, we have the following recommendations: [] bus system operator visit [x] Discuss with primary team to [...] education/support-primary team to place order [] Recommend [employer] consultation- primary nursing to place order [] Recommend social work/substance use consultation -primary team to place order [] Recommend outpatient psychiatric follow-up - primary team to place psychiatric consult order to coordinate [] No acute psychiatric intervention needed; please reach out if questions or concerns. [] Other [place] [phone] with questions. Janie Pal R.N., [facility] 10/10/2024 * Desiree Mckeon RMakN. - 10/10/2024 [...] patient was recommended to present to the [facility] ED to expedite hospital admission for urgent PCI. He denies any current chest pain here in the ED. He is currently anticoagulated on Eliquis. He denies any fever, cough, hemoptysis, increased edema, or shortness of breath. There are no other complaints at this time. History provided by: Patient and medical records loom technician needed/used: no REVIEW OF SYSTEMS Reason unable [...] for ACS, and was admitted to the [facility] CARD 2 service for further [...] Pathology, [facility] in [place], [place] [address] [place] [phone] Polo Dwyer M.D. [address] [place] [phone] 10/26/2024 1:00 PM CDT Education Department of Oncology in [place], [place] [address] [place] [address] Polo Dwyer M.D. [address] [place] [phone] 10/26/2024 2:00 PM CDT Infusion Department of Oncology in [place], [place] [address] [place] [phone] Polo Dwyer M.D. [address] [place] [phone] 11/02/2024 12:10 PM CDT Lab Department of Laboratory Medicine and Pathology, [facility] in [address] [phone] Alisa Menjivar M.D. [address] [place] [phone] 11/02/2024 1:00 PM CDT Clinical Support Department of Oncology in [address] [phone] Polo Dwyer M.D. [address] [place] [phone] China Parikh, M.S.W., L.I.C.S.W. [address] [place] [phone] 11/02/2024 2:00 PM CDT Infusion Department of Oncology in [address] [phone] Alisa Menjivar M.D. [address] [place] [phone] 11/12/2024 2:15 PM CDT Office Visit Department of Cardiovascular Medicine in [address] [phone] Elisa Alva M.D. [address] [place] [phone] 11/15/2024 3:30 PM CDT Clinical Communication Virtual Review in [address] [phone] 11/16/2024 8:30 AM CDT Lab Department of Laboratory Medicine and Pathology, [facility], in [address] [phone] Alisa Menjivar M.D. [address] [place] [phone] 11/16/2024 10:30 AM CDT Office Visit Department of Oncology in [address] [phone] Alisa Menjivar M.D. [address] [place] [phone] 11/16/2024 2:30 PM CDT Infusion Department of Oncology in [address] [phone] Alisa Menjivar M.D. [address] [place] [phone] 11/23/2024 8:30 AM CDT Lab Department of Laboratory Medicine and Pathology, [facility], in [address] [phone] Alisa Menjivar M.D. [address] [place] [phone] 11/23/2024 10:30 AM CDT Infusion Department of Oncology in [address] [phone] Alisa Menjivar M.D. [address] [place] [phone] documented as of this encounter Procedures Procedure [...] Renal Function Panel (10/12/2024 1:08 PM CDT) [facility] Potassium, S 5.0 3.6 - 5.2 [...] LAB BLOOD ADD-ON Final Res ult [facility] [address] [place] [address], [facility] [address] [place] [address] * (ABNORMAL) CBC without Differential (10/12/2024 1:08 [...] M.D. LAB [place]LOOD [place] [address], [facility] [address] [place] [address] * CT Lymph Node Biopsy (10/11/2024 12:52 [...] series 302, image 166. A total of [id number] cores were obtained from the lymph node [...] series 302, image 166. A total of [id number] cores were obtained from the lymph node [...] features. Immunohistochemic al stains were performed at [facility] (block A1). 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 Digital imaging was used in the diagnostic assessment of this case. (A) 10/15/2024 12:58 PM CDT DTL Tissue (Pelvis, Left) 10/11/2024 11:32 AM CDT us Mila Burgess M.D. LAB SURG PATH ORDERABLES F inal Result [facility] [address] [place] [address], [facility] DTL [address] [place] [address] * (ABNORMAL) Renal Function Panel (10/11/2024 8:38 [...] M.D. LAB BLOOD ADD-ON Final Res ult [facility] [address] [place] [address], [facility] [address] [place] [address] * (ABNORMAL) CBC without Differential (10/11/2024 8:38 [...] LAB BLOOD ADD-ON Final Res ult [facility] [address] [place] [address], [place] DTL [facility] [address] [place] [address] * CORONARY ANGIOGRAPHY (10/10/2024 4:18 PM CDT) Anatomical Region Laterality Modality X-Ray Angiograph y 10/10/2024 3:43 PM CDT Narrative 10/10/2024 4:58 PM CDT For the complete report, see the Order-Level Documents. PROCEDURE TYPES 1. CORONARY ANGIOGRAPHY FINAL DIAGNOSIS 1. Severe coronary artery atherosclerosis 2. VALVER (Chronic Total Occlusion) 3. Coronary artery collateral [...] disease as well. There is an RCA VALVER with good left to right collaterals. Discussed [...] left anterior descending artery and second septal staff auditor. The right posterolateral segment is 99% obstructed [...] DIAGNOSIS 1. Severe coronary artery atherosclerosis 2. VALVER (Chronic Total Occlusion) 3. Coronary artery collateral [...] LCx diseaseas well. There is an RCA VALVER with good left to right collaterals.Discussed with [...] distal left anterior descendingartery and second septal staff auditor. The right posterolateral segment is 99% obstructed [...] ORDERABLES Final Resu lt Performing Organization Address [facility] Co de Phone Number [facility] [address] [place] [address], [facility] [address] [place] [address] * (ABNORMAL) Dipstick, Urine (10/10/2024 5:41 AM [...] URINE ORDERABLES Final Resu Performing Organization Address [facility] de Phone Number [facility] [address] [place] [address], [facility] [address] [place] [address] * pH, Urine (10/10/2024 5:41 AM CDT) pH, U 5.8 4.5 - 8.0 10/10/2024 6:1 9 AM CDT DTL Urine 10/10/2024 5:41 AM CDT 10/10/2024 5:58 AM CDT us Mario Musa M.D. LAB URINE ORDERABLES Final Resu Performing Organization Address [facility] Co de Phone Number [facility] [address] [place] [address], [facility]3] [address] [place] [address] * Osmolality, Urine (10/10/2024 5:41 AM CDT) Osmolality, U 215 150 - 1150 mOsm/kg 10/10/2024 6:19 AM CDT DTL Urine 10/10/2024 5:41 AM CDT 10/10/2024 5:58 AM CDT Mario Musa M.D. LAB URINE ORDERABLES Final Critical access hospital Performing Organization Address [facility] de Phone Number [facility] [address] [place] [address], [facility]3] [address] [place] [address] * (ABNORMAL) Urinalysis, with Microscopic: Urine, Catheter [...] URINE ORDERABLES Final Result Performing Organization Address [facility] Co de Phone Number [facility] [address] [place] [address], [place] DTL [facility] [address] [place] [address] * ECG 12 Lead (10/10/2024 4:13 AM CDT) Ventricular Rate ECG/Min 58 BPM MUSE [place] Interval 168 ms MUSE QRSD Interval 76 ms MUSE QT Interval 418 ms MUSE QTC Interval 410 ms MUSE P [place] 79 degrees MUSE R [place] 24 degrees MUSE T Wave [place] 17 degrees MUSE 10/10/2024 4:13 AM CDT [...] change was found Reviewed by JIM Aguirre Mlia Burgess M.D. ECG ORDERABLES Final Resu lt Performing Organization Address City/[facility] Co de Phone Number MUSE NA * US Lower Extremity Veins [...] and management can be found on the [employer] site. Link https://[employer] Technology[employer].[facility]/topic/clinical-answers/[email or web address]/cpm-[email or web address] 55289 Procedure Note Judy Ibrahim M.D. - 10/10/2024 [...] thrombosis and management can be found on theAskCG Scholar site. Linkhttps://[employer].[facility].org/topic/clinical-answers/[email or web address]/cpm -2049 1725 IMPRESSION: 1. Negative for acute [...] Function Panel (10/09/2024 11:30 PM CDT) Pathologist [facility] Potassium, S 4.5 3.6 - 5.2 mmol/L [...] ADD-ON Final Res ult Performing Organization Address [facility] Co de Phone Number [facility] [address] [place] [address], [facility] DTL [facility] [address] [place] [address] * (ABNORMAL) Troponin T, 5th Generation (10/09/2024 11:30 PM CDT) [facility] Troponin T, 5th gen 31(H) <=15 ng/L 10/09/2024 11:53 PM CDT [facility] Blood (Blood, Venous) 10/09/2024 11:30 PM CDT 10/09/2024 11:37 PM CDT Mila Burgess M.D. LAB BLOOD ADD-ON Final Res ult Performing Organization Address [facility] Co de Phone Number [facility] [address] [place] [address], [facility] STMA [facility] [address] [place] [address] * (ABNORMAL) CBC without Differential (10/09/2024 11:30 PM CDT) [facility] Hemoglobin 9.5(L) 13.2 - 16.6 g/dL [...] ADD-ON Final Res ult Performing Organization Address City/[facility]/ZIP Co de Phone Number [facility] [address] [place], [place] [address] DTL [facility] [address] [place] [address] * Type and Screen (with Reflex Antibody ID) (10/09/2024 11:25 PM CDT) Pathologist [facility] ABORh O Neg Not applicable 10/10/2024 1:17 [...] ORDERA BLES Final Result Performing Organization Address [facility] Co de Phone Number [facility] [address] [place] [address], [facility] STRM [facility] [address] [place] [address] * ECG 12 Lead (10/09/2024 10:00 PM CDT) Ventricular Rate ECG/Min 58 BPM MUSE [place] Interval 172 ms MUSE QRSD Interval 80 ms MUSE QT Interval 412 ms MUSE QTC Interval 404 ms MUSE P [place] 41 degrees MUSE R [place] 38 degrees MUSE T Wave [place] 33 degrees MUSE 10/09/2024 10:0 0 PM [...] ORDERABLES Final Resu lt Performing Organization Address City/[facility]/ZIP Co de Phone Number MUSE NA * ECG 12 Lead (10/09/2024 8:57 PM CDT) Ventricular Rate ECG/Min 63 BPM MUSE [place] Interval 166 ms MUSE QRSD Interval 76 ms MUSE QT Interval 398 ms MUSE QTC Interval 407 ms MUSE P [place] 24 degrees MUSE R [place] 7 degrees MUSE T Wave [place] 0 degrees MUSE 10/09/2024 8:57 PM CDT [...] 7:33 PM CDT 10/09/2024 7:38 PM CDT us Zuri Harvey P.A.-C., M.S. LAB BLOOD TROPONIN Fi nal Result [facility] [address] [place] [address], [facility] [address] [place] [address] * DX Chest AP or PA and [...] of postoperative changes lumbarspine. us Zuri Harvey P.A.-C. M.S. IMG DIAGNOSTIC IMAGIN G PROCEDURES Final Result * APTT (Activated Partial Thromboplastin Time) (10/09/2024 5:25 PM CDT) Activated Partial Thrombopl Time, P 28 25 - 37 sec 10/09/2024 5:41 PM CDT [facility] Blood (Blood, Venous) 10/09/2024 5:25 PM CDT 10/09/2024 5:31 PM CDT us Zuri Harvey P.A.-C., M.S. LAB BLOOD ADD-ON Gabriella l Result Performing Organization Address [facility]/ZIP Co de Phone Number [facility] [address] [place] [address] * Prothrombin Time (PT) (10/09/2024 5:25 PM CDT) Prothrombin Time, P 12.4 9.4 - 12.5 sec 10/09/2024 5:38 PM CDT [facility] IN[facility] 1.1 0.9 - 1.1 10/09/2024 5:38 PM CDT [facility] Comment: ----ADDITIONAL INFORMATION---- Standard intensity warfarin therapeutic range: 2.0 to 3.0 High intensity warfarin therapeutic range: 2.5 to 3.5 Blood (Blood, Venous) 10/09/2024 5:25 PM CDT 10/09/2024 5:31 PM CDT us Zrui Harvey P.A.-C., M.S. LAB BLOOD ADD-ON Gabriella l Result Performing Organization Address City/[facility]/ZIP Co de Phone Number [facility] [address] [address] [place] [address] * (ABNORMAL) Troponin T, Baseline with 2 Hour/6 Hour Reflex Biomarker Panel (10/09/2024 5:25 PM CDT) [facility] Troponin T, Baseline, 5th gen 33(H) <=15 ng/L 10/09/2024 6:22 PM CDT [facility] Blood (Blood, Venous) 10/09/2024 5:25 PM CDT 10/09/2024 5:31 PM CDT Zuri Harvey P.A.-C., M.S. LAB BLOOD TROPONIN Fi nal Result [facility] [address] [place] [address], [facility] [address] [place] [address] * (ABNORMAL) Basic Metabolic Panel (10/09/2024 5:25 PM CDT) [facility] Potassium, P 4.8 3.6 - 5.2 [...] M.S. LAB BLOOD ADD-ON Gabriella l Result [facility] [address] [place] [address], [facility] [address] [place] [address] * (ABNORMAL) CBC with Differential, Blood (10/09/2024 [...] M.S. LAB BLOOD ADD-ON Gabriella l Result [facility] [address] [place] [address], [facility] [address] [place] [address] [facility] [address] [place] [address] * ECG 12 Lead (10/09/2024 5:12 PM CDT) Ventricular Rate ECG/Min 63 BPM MUSE [place] Interval 170 ms MUSE QRSD Interval 74 ms MUSE QT Interval 392 ms MUSE QTC Interval 401 ms MUSE P [place] 8 degrees MUSE R [place] 34 degrees MUSE T Wave [place] 34 degrees MUSE 10/09/2024 5:12 PM CDT [...] found Reviewed by JIM Butts Zuri Harvey P.A.-C. MMakS. ECG ORDERABLES Final Result MUSE NA documented [...] Provider: Molly Massey RMakN.)0932 (Given - Provider: Mariam Geiger RTiffanie)1208 (Given - Provider: Donita Solis RTiffanie)1325 (MAR Hold - Provider: Transfer Provider, Automatic - Reason: Patient not available)1700 (Dose Auto Held - Provider: Transfer Provider, Automatic)1728 (MAR Unhold - Provider: Transfer Provider, Automatic)2120 (Given - Provider: Donita Solis RCollins.) 0842 (Given - Provider: Merna Jang RMakNMak)1318 (Given - Provider: Pema ColeNMak)1808 (Given - Provider: Janie Osei RMakN.)2324 (Given - Provider: Kerry Caicedo RMakNMak) 0802 (Given - Provider: Liat Sam RMakNMak)1223 (Given - Provider: Liat Sam R.N.) aspirin [...] Provider, Automatic - Reason: Patient not available)1728 ([facility] Unhold - Provider: Transfer Provider, Automatic) 0846 [...] Provider, Automatic - Reason: Patient not available)172 ([facility] Unhold - Provider: Transfer Provider, Automatic) 0842 (Given - Provider: Merna Jang R.N.) 0802 (Given - Provider: Liat Sam RMakN.) oxyCODONE IR tablet 2.5 mg (Roxicodone) (COMPLETED) 2.5 mg, oral, Once, On Tue10/10/24 at 0515, For 1 dose 0522 (Given - Provider: Desiree Mckeon RMakN.) rosuvastatin tablet 20 mg (Crestor) 20 mg, oral, Daily at bedtime, First dose on Tue10/10/24 at 2100 1325 ([facility] Hold - Provider: Transfer Provider, Automatic - Reason: Patient not available)1727 ([facility] Unhold - Provider: Transfer Provider, Automatic)2049 (Given - Provider: Donita Solis RTiffanie) 2006 (Given - Provider: Kerry Caicedo R.N.) sennosides-docusate sodium 8.6-50 mg per tablet 1 tablet (Senokot-S) 1 tablet, oral, 2 times daily, First dose on Tue10/09/24 at 2100, Do not give if patient has diarrhea. 0933 (Given - Provider: Mariam Geiger R.N.)1325 ([facility] Hold - Provider: Transfer Provider, Automatic - Reason: Patient not available)172 ([facility] Unhold - Provider: Transfer Provider, [...] 0009 (New Bag - Provider: Desiree Mckeon RTiffanie)0350 (Stopped - Provider: Desiree Mckeon RTiffanie) PRN Medication Order 10/10/2024 10/11/2024 10/12/2024 D5W [...] solution (Omnipaque) (CANCELED) Code/trauma/sedation medication, Starting on 10/10/24 at 1613, Intraprocedure (CV) 1613 (Given - [...] chest pain, Max 3 doses, Starting on e 10/09/24 at 2033, May administer up to 3 doses per episode. Dissolve under the tongue. Do NOT crush, chew, split or swallow tablet. 1325 (MAR Hold - Provider: Transfer Provider, Automatic - Reason: Patient not available)1728 (MAR Unhold - Provider: Transfer Provider, Automatic) polyethylene glycol powder packet 17 g (Miralax) 17 g, oral, Daily PRN, constipation, Starting on e 10/09/24 at 2026, Ordered sequence of administration: polyethylene [...] infusions. documented in this encounter Care Teams Bone Drier Operator Relationship Specialty Start Date End Date Elsewhere, Pcp PCP - General Internal Medicine 10/09/24 documented as of this encounter
--- OUTSIDE RECORDS SUMMARY | 2024-10-10 22:25 | XMS_ITS | Encounter Summary ---
Author Organization [facility] Address [address] [place] [address] Care Team Providers Care Router Tender Name Role Phone Elsewhere, Pcp Primary Care Provider Unavailabl e Encounter Details Date Type Department Care Team (Late st Contact Info) Description 10/10/2024 10:25 PM CDT Ancillary Procedure Department of Cardiology Social History Tobacco Use Types Packs/Day Years Used Date Smoking Tobacco: Former Smokeless Tobacco: Never Alcohol Use Standard Drinks/Week Comments Yes 3 (1 standard drink = 0.6 oz pur e alcohol) [facility] Utilities Answer Date Recorded In the past [...] your living situation today? I have a [facility] place to live 10/09/2024 Education Answer Date Recorded What is the highest level of school you have completed or the highest degree you have received? 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 [address] [place] [address] 10/26/2024 1:00 PM CDT Education Department of Oncology in [place], [place] [address] [place] [address] Polo Dwyer M.D. [address] [place] [phone] 10/26/2024 2:00 PM CDT Infusion Department of Oncology in [place], [place] [address] [place] [address] Polo Dwyer M.D. [address] [place] [phone] 11/02/2024 12:10 PM CDT Lab Department of Laboratory Medicine and Pathology, [facility] in [place], [place] [address] [place] [phone] Alisa Menjivar M.D. [address] [place] [phone] 11/02/2024 1:00 PM CDT Clinical Support Department of Oncology in [place], [place] [address] [place] [phone] Polo Dwyer M.D. [address] [place] [phone] China Parikh, M.S.W., L.I.C.S.W. [address] [place] [phone] 11/02/2024 2:00 PM CDT Infusion Department of Oncology in [place], [place] [address] [place] [phone] Alisa Menjivar M.D. [address] [place] [phone] 11/12/2024 2:15 PM CDT Office Visit Department of Cardiovascular Medicine in [place], [place] [address] [place] [phone] Elisa Alva M.D. [address] [place] [phone] 11/15/2024 3:30 PM CDT Clinical Communication Virtual Review in [place], [place] 200 [place] [address] 11/16/2024 8:30 AM CDT Lab Department of Laboratory Medicine and Pathology, [facility], in [place], [place] [address] [place] [phone] Alisa Menjivar M.D. [address] [place] [phone] 11/16/2024 10:30 AM CDT Office Visit Department of Oncology in [place], [place] [address] [place] [phone] Alisa Menjivar M.D. [address] [place] [phone] 11/16/2024 2:30 PM CDT Infusion Department of Oncology in [place], [place] [address] [place] [phone] Alisa Menjivar M.D. [address] [place] [phone] 11/23/2024 8:30 AM CDT Lab Department of Laboratory Medicine and Pathology, [facility], in [place], [place] [address] [place] [phone] Alisa Menjivar M.D. [address] [place] [phone] 11/23/2024 10:30 AM CDT Infusion Department of Oncology in [place], [place] [address] [place] [phone] Alisa Menjivar M.D. [address] [place] [phone] documented as of this encounter Procedures Procedure Name Priority Date/Time Associated Diagnosis Comments CARDIOLOGY ENCOUNTER IMAGE EXAM Routine 10/10/2024 10:25 PM CDT documented in this encounter Results * Specimen-Cardiology Encounter Image Exam (10/10/2024 10:25 PM CDT) 10/10/2024 10:2 4 PM CDT Narrative [facility] - 10/10/2024 10:27 PM CDT This order has been created and auto-finalized to support the import of images acquired without order. The clinical documentation to support these images can be found on the encounter that produced images. us Provider Not In System IMG NON RAD IMAGING PROCE DURES Final Result [facility] NA documented in this encounter Visit Diagnoses Not on filedocumented in this encounter Care Teams Router Tender Relationship Specialty Start Date End Date Elsewhere, Pcp PCP - General Internal Medicine 10/09/24 documented as of this encounter
--- OUTSIDE RECORDS SUMMARY | 2024-10-17 08:30 | XMS_ITS | Encounter Summary ---
Author Organization [facility] Address [address] [place] [address] Care Team Providers Care Solution Consultant Name Role Phone Elsewhere, Pcp Primary Care Provider Unavailabl e Reason for Visit * Outpatient (Routine) - Closed Specialty Diagnoses / Procedures Referred By Contac t Referred To Contact Urology Diagnoses Mass Bladder Shyam Musa M.D. [address] [place] [phone] Phone: tel: fax: [facility] Referral ID Status Reason Start Date Expiration Date Visits Re quested Visits Authorized [id number] Closed 09/04/2024 03/06/2026 1 1 Encounter Details Date Type Department Care Team (Latest Contact Info) Description 10/17/2024 8:30 AM CDT Comprehensive Visit Department of Urology in [place], [place] [address] [place] [phone] Pema Rojas M.D. [address] [place] [phone] Malignant Neoplasm Of Bladder (HCC) (Primary Dx) Social History Tobacco Use Types Packs/Day Years Used Date Smoking Tobacco: Former Smokeless Tobacco: Never Alcohol Use Standard Drinks/Week Comments Yes 3 (1 standard drink = 0.6 oz pur e alcohol) [facility] Utilities Answer Date Recorded In the past 12 months has [employer] electric, gas, oil, or water company threatened [...] your living situation today? I have a [facility] place to live 10/09/2024 Education Answer Date Recorded What is the highest level of school you have completed or the highest degree you have received? 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 Given concern for metastatic [...] retention gross hematuria. Patient was discharged from [facility] on 10/12, and presents today for follow [...] with and plan was discussed with supervising technology sales consultant, Dr. Rojas. Sailaja Lassiter M.D. * [...] Lab Department of Laboratory Medicine and Pathology, [facility] in [place], [place] [address] [place] [phone] Polo Dwyer M.D. [address] [place] [phone] 10/26/2024 1:00 PM CDT Education Department of Oncology in [place], [place] [address] [place] [phone] Polo Dwyer M.D. [address] [place] [phone] 10/26/2024 2:00 PM CDT Infusion Department of Oncology in [place], [place] [address] [place] [phone] Polo Dwyer M.D. [address] [place] [phone] 11/02/2024 12:10 PM CDT Lab Department of Laboratory Medicine and Pathology, [facility], in [place], [place] [address] [place] [phone] Alisa Menjivar M.D. [address] [place] [phone] 11/02/2024 1:00 PM CDT Clinical Support Department of Oncology in [place], [place] [address] [place] [phone] Polo Dwyer M.D. [address] [place] [phone] China Parikh, M.S.W., L.I.C.S.W. [address] [place] [phone] 11/02/2024 2:00 PM CDT Infusion Department of Oncology in [place], [place] [address] [place] [phone] Alisa Menjivar M.D. [address] [place] [phone] 11/12/2024 2:15 PM CDT Office Visit Department of Cardiovascular Medicine in [place], [place] [address] [place] [phone] Elisa Alva M.D. [address] [place] [phone] 11/15/2024 3:30 PM CDT Clinical Communication Virtual Review in [place], [place] 200 [place] [phone] 11/16/2024 8:30 AM CDT Lab Department of Laboratory Medicine and Pathology, [facility] in [place], [place] [address] [place] [phone] Alisa Menjivar M.D. [address] [place] [phone] 11/16/2024 10:30 AM CDT Office Visit Department of Oncology in [place], [place] [address] [place] [phone] Alisa Menjivar M.D. [address] [place] [phone] 11/16/2024 2:30 PM CDT Infusion Department of Oncology in [place], [place] [address] [place] [phone] Alisa Menjivar M.D. [address] [place] [phone] 11/23/2024 8:30 AM CDT Lab Department of Laboratory Medicine and Pathology, [facility] in [place], [place] [address] [place] [phone] Alisa Menjivar M.D. [address] [place] [phone] 11/23/2024 10:30 AM CDT Infusion Department of Oncology in [place], [place] [address] [place] [address] Alisa Menjivar M.D. [address] [place] [phone] documented as of this encounter Visit Diagnoses Diagnosis Malignant Neoplasm Of Bladder (HCC)- Primary documented in this encounter Care Teams Solution Consultant Relationship Specialty Start Date End Date Elsewhere, Pcp PCP - General Internal Medicine 10/09/24 documented as of this encounter
--- OUTSIDE RECORDS SUMMARY | 2024-10-17 09:21 | XMS_ITS | Encounter Summary ---
Author Organization [facility] Address [address] [place] [id number] Care Team Providers Care Brusher Machine Name Role Phone Elsewhere, Pcp Primary Care Provider Unavailabl e Encounter Details Date Type Department Care Team (Latest Contact Info) Description 10/17/2024 9:21 AM CDT - 10/17/2024 11:59 PM CDT Hospital Encounter Department of Laboratory Medicine and Pathology, [facility] in [place], [place] [address] [place] [address] Shyam Musa M.D. [address] [place] [phone] Mass Bladder Discharge Disposition: Home or Self Care Social History Tobacco Use Types Packs/Day Years Used Date Smoking Tobacco: Former Smokeless Tobacco: Never Alcohol Use Standard Drinks/Week Comments Yes 3 (1 standard drink = 0.6 oz pur e alcohol) [facility] Utilities Answer Date Recorded In the past 12 months has e [employer], gas, oil, or water [employer] threatened to shut off services in your [...] your living situation today? I have a [facility] place to live 10/09/2024 Education Answer Date Recorded What is the highest level of school you have completed or the highest degree you have received? 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, [employer], BERTA) 05/11/2020 Sex and Gender Information Value Date Recorded Sex Assigned at Male 09/04/2024 9:32 AM CDT Legal Sex Male 5:45 PM [employer] Gender Identity Male 09/04/2024 9:32 AM CDT [...] Lab Department of Laboratory Medicine and Pathology, [facility], in [place], [place] [address] [place] [address] Polo Dwyer M.D. [address] [place] [phone] 10/26/2024 1:00 PM CDT Education Department of Oncology in [place], [place] [address] [place] [address] Polo Dwyer M.D. [address] [place] [phone] 10/26/2024 2:00 PM CDT Infusion Department of Oncology in [place], [place] [address] [place] [phone] Polo Dwyer M.D. [address] [place] [phone] 11/02/2024 12:10 PM CDT Lab Department of Laboratory Medicine and Pathology, [facility] in [place], [place] [address] [place] [phone] Alisa Menjivar M.D. [address] [place] [phone] 11/02/2024 1:00 PM CDT Clinical Support Department of Oncology in [place], [place] [address] [place] [phone] Polo Dwyer M.D. [address] [place] [phone] China Parikh M.S.W., L.I.C.S.W. [address] [place] [phone] 11/02/2024 2:00 PM CDT Infusion Department of Oncology in [place], [place] [address] [place] [phone] Alisa Menjivar M.D. [address] [place] [phone] 11/12/2024 2:15 PM CDT Office Visit Department of Cardiovascular Medicine in [place], [place] [address] [place] [phone] Elisa Alva M.D. [address] [place] [phone] 11/15/2024 3:30 PM CDT Clinical Communication Virtual Review in [place], [place] [address] [place] [phone] 11/16/2024 8:30 AM CDT Lab Department of Laboratory Medicine and Pathology, [facility] in [place], [place] [address] [place] [phone] Alisa Menjivar M.D. [address] [place] [phone] 11/16/2024 10:30 AM CDT Office Visit Department of Oncology in [place], [place] [address] [place] [phone] Alisa Menjivar M.D. [address] [place] [phone] 11/16/2024 2:30 PM CDT Infusion Department of Oncology in [address] [phone] Alisa Menjivar M.D. [address] [place] [phone] 11/23/2024 8:30 AM CDT Lab Department of Laboratory Medicine and Pathology, [facility], in [place], [place] [address] [place] [phone] Alisa Menjivar M.D. [address] [place] [phone] 11/23/2024 10:30 AM CDT Infusion Department of Oncology in [place], [place] [address] [place] [address] Alisa Menjivar M.D. [address] [place] [phone] documented as of this encounter Procedures Procedure [...] Musa M.D. LAB BLOOD ADD-ON Final Result [facility] [address] [place] [address], [facility] DTL [facility] [address] [place], [place] [id number] [place] [address] [address] [place] [address] * (ABNORMAL) Comprehensive Metabolic Panel (10/17/2024 9:48 AM CDT) [facility] Potassium, S 4.9 3.6 - 5.2 mmol/L [...] 9:48 AM CDT 10/17/2024 10:11 AM CDT us Shyam Musa M.D. LAB BLOOD ADD-ON Final Result [facility] [address] [place] [address], [facility] [address] [place] [address] documented in this encounter Visit Diagnoses Diagnosis Mass Bladder documented in this encounter Care Teams Brusher Machine Relationship Specialty Start Date End Date Elsewhere, Pcp PCP - General Internal Medicine 10/09/24 documented as of this encounter
--- OUTSIDE RECORDS SUMMARY | 2024-10-17 13:20 | XMS_ITS | Encounter Summary ---
Author Organization [facility] Address [address] [place] [address] Care Team Providers Care Lokie Engineer Name Role Phone Elsewhere, Pcp Primary Care Provider Unavailabl e Reason for Referral * Outpatient (Routine) Specialty Diagnoses / Procedures Referred By Keiko t Referred To Contact Oncology Diagnoses Malignant Neoplasm Of Bladder (HCC) Medication Therapy Beader Tender Not Anticoagulant Beader Tender Current Drug Therapy, Chemotherapy Alisa Menjivar M.D. [address] [place] [address] Phone: tel: fax: [facility] Referral ID Status Reason Start Date Expiration Date Visits Re quested Visits Authorized * Medication Prior Authorization - Closed Specialty Diagnoses / Procedures Referred By Contac t Referred To Contact Diagnoses Malignant Neoplasm Of Bladder (HCC) Polo Dwyer M.D. [address] [place] [address] Phone: tel: fax: Referral ID Status Reason Start Date Expiration Date Visits Re quested Visits Authorized [id number] Closed 1 1 * Specialty Diagnoses / Procedures Referred By Contac t Referred To Contact Diagnoses Malignant Neoplasm Of Bladder (HCC) Medication Therapy Care Home Not Anticoagulant Beader Tender Current Drug Therapy, Chemotherapy Polo Dwyer M.D. [address] [place] [address] Phone: tel: fax: [facility] Referral ID Status Reason Start Date Expiration Date Visits Re quested Visits Authorized * Outpatient (Routine) - Authorized Specialty Diagnoses / Procedures Referred By Keiko latif Referred To Contact Social Work Diagnoses Malignant Neoplasm Of Bladder (HCC) Polo Dwyer M.D. [address] [place] [address] Phone: tel: fax: [facility] Referral ID Status Reason Start Date Expiration Date V isits Requested Visits Authorized [id number] Authorized 10/17/2024 04/18/2026 1 1 Reason for Visit * Outpatient (Routine) - Closed Specialty Diagnoses / Procedures Referred By Keiko latif Referred To Contact Medical Oncology / Oncology Diagnoses Mass Bladder Shyam Musa M.D. [address] [place] [address] Phone: tel: fax: [facility] Referral ID Status Reason Start Date Expiration Date Visits Re quested Visits Authorized [id number] Closed 09/04/2024 03/06/2026 1 1 Encounter Details Date Type Department Care Team (Latest Contact Info) Description 10/17/2024 1:20 PM CDT Comprehensive Visit Department of Oncology in [place], [place] [address] [place] [phone] Alisa Menjivar M.D. [address] [place] [phone] Malignant Neoplasm Of Bladder (HCC) (Primary Dx); Other Care Home Current Drug Therapy; Medication Therapy Beader Tender Not Anticoagulant; Care Home Current Drug Therapy, Chemotherapy Social History Tobacco Use Types Packs/Day Years Used Date Smoking Tobacco: Former Smokeless Tobacco: Never Alcohol Use Standard Drinks/Week Comments Yes 3 (1 standard drink = 0.6 oz pur e alcohol) [facility] Utilities Answer Date Recorded In [...] your living situation today? I have a [facility] place to live 10/09/2024 Education Answer Date Recorded What is the highest level of school you have completed or the highest degree you have received? 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 Gender Identity Male 09/04/2024 9:32 AM CDT Sexual Orientation Straight 09/04/2024 9: 32 AM CDT documented as of this encounter Last Filed Vital Signs Vital Sign Reading Time Taken Comments Blood Pressure 95/60 10/17/2024 1:11 PM CDT Pulse 60 10/17/2024 1:11 PM CDT Temperature 36.5 C (97.7 F) 10/17/2024 1:11 PM CDT Respiratory Rate 16 10/17/2024 1:11 PM CDT Oxygen Saturation 96% 10/17/2024 1:1 1 PM CDT Inhaled Oxygen Concentration - - Weight 78.4 kg (172 lb 13.5 oz) 025 1:11 PM CDT with shoes Height 167.1 cm (5' 5.79) 10/17/2024 1 :11 PM CDT with shoes Body Mass Index 28.08 10/17/2024 1:11 PM CDT documented in this encounter Consult Notes * Polo Dwyer M.D. - 10/17/2024 1:20 PM CDT SUBJECTIVE PRIMARY CARE PHYSICIAN Osorio Galvan M.D. PCP - General, Family Medicine [phone] REQUESTING PROVIDER Shyam Musa M.D. [address] [place] [phone] LOCAL ONCOLOGIST care team foreman to display [facility] FELLOW Polo Dwyer MD PRIMARY [facility] ONCOLOGIST Alisa Menjivar M.D. REASON FOR CONSULT Hernandez Samayoa is a 78 y.o. male who presents for initial consultation and evaluation of newly diagnosed metastatic papillary bladder cancer. HISTORY OF PRESENT ILLNESS Oncology History Oncology History Overview Note July 2024 w/u urinary retention, CTU large right lateral to posterior bladder wall mass with extravesicular tumor extension. Bilateral ureteral obstruction by the bladder mass. 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 CT chest no mets Malignant Neoplasm Of Bladder (HCC) 09/04/2024 Initial Diagnosis Malignant Neoplasm Of Bladder (HCC) 10/05/2024 Clinical Stage Staging form: Urinary Bladder, AJCC 8th Edition - Clinical: Stage CHANTEL (cT3, pM1a) 10/17/2024 - Chemotherapy Enfortumab vedotin-ejfv / Pembrolizumab Start Date: 10/17/2024 (Planned) The patient was seen by our Urology colleagues on 08/16/24 for urinary retention and gross hematuria. CT scan at this time showed a 5 cm bladder mass of the right posterolateral bladder wall possiblycausing mass effect on the ureteral orifices. Patient was noted to have ongoing hematuria at his appointment and further evaluation with CT urogram, cystoscopy and urine cytology were recommended. CTurogram was performed on 09/03/24 and revealed an 8.8 x 4.5 x 2.8 mass in the right lateral to posterior wall of the bladder with slight increase in size as compared to CT scan on 08/12/2024. Both UVJwere obstructed by the mass. Retroperitoneal and bilateral pelvic adenopathy were noted - (1.3 cm ce ntrally necrotic lymph node in the left proximal external iliac chain. 1.6 cm lymph node in the left distal external iliac chain (image 233). 1.0 cm right common iliac lymph node). Multiple periaortic lymph nodes with central hypodensity suggestive of necrosis were also noted. Cystoscopy was performed on 09/03/24 revealing the large right lateral the posterior bladder wall mass with extra vesicular tumor extension. Bilateral ureteral obstruction by the bladder mass was again appreciated. Extensive óscar metastases in bilateral iliac chains in the retroperitoneum were noted. A few retrocrural lymph nodes were present as well. 10/01/24 CT chest without contrast for staging showed no evidence of metastases in the chest. Of note, there were multiple indeterminate prominent periaortic thoracic lymph nodes. The patient underwent nuclear cardiac scan on 10/09/24 for preoperative fitness evaluation. However, the patient had new chest pain and ultimately was seen by cardiovascular medicine for concerns of unstable angina. The patient was admitted 10/09/24 - 10/12/24 for further cardiac workup. 10/10/24 diagnostic cardiac catheterization with extensive multivessel coronary disease. No intervention was performed given desire to avoid DAPT. Mr. 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 He met with urology today who recommend against surgical extirpation now and probably not in the future. The patient has been internally referred to our clinic for evaluation and medical management recommendations. Mr. Samayoa presents to our clinic this afternoon and is accompanied by his partner, Roderick, and step-daughter, Ubaldo. Mr. Samayoa and his family travel here from [facility], an hour away. Mr. 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 Today, he endorses intermittent fatigue, ongoing hematuria, and intermittent constipation which improved with as needed MiraLax use. He also endorses intermittent generalized abdominal pain of the right lower quadrant that is transient and consistent with gas pain. He denies fevers, chills, headache, new vision or hearing changes, shortness of breath, chest pain, nausea, and vomiting. He endorsesdecreased appetite and typically does not finish his meals. His support system includes his stepdaughter and stepson who live in the area. Mr. Samayoa's has early dementia with a aged or disabled care worker who stops by their house three times per week (MWF), and well as a nurse who visits monthly to assist with medications. ROS Review of systems negative except for pertinent positives mentioned above. The following portions of the patient's history were reviewed and updated as appropriate: allergies, current medications, family history, medical history, social history, surgical history, and problem list. REVIEW OF SYSTEMS Negative aside from pertinent positives mentioned in the HPI above. OBJECTIVE BP 95/60 (BP Location: Right arm, Patient Position: Sitting, Cuff Size: Regular) Pulse 60 Temp 36.5 ??C (Temporal) Resp 16 Ht 167.1 cm Comment: with shoes Wt 78.4 kg Comment: with shoes SpO2 96% BMI 28.08 kg/m?? PHYSICAL EXAM Vitals reviewed. Constitutional General: He is not in acute distress. Appearance: Normal appearance. He is not ill-appearing. HENT Head: Normocephalic and atraumatic. Nose: Nose normal. No rhinorrhea. Mouth/Throat: Mouth: Mucous membranes are moist. Eyes General: No scleral icterus. Right eye: No discharge. Left eye: No discharge. Extraocular Movements: Extraocular movements intact. Cardiovascular Rate and Rhythm: Normal rate and regular rhythm. Pulses: Normal pulses. Heart sounds: No murmur heard. Pulmonary Effort: Pulmonary effort is normal. Breath sounds: No stridor. Rales present. No wheezing. Comments: Faint rales in b/l lung bases. Abdominal General: Abdomen is flat. There is no distension. Palpations: Abdomen is soft. Tenderness: There is no abdominal tenderness. Musculoskeletal General: Swelling present. Normal range of motion. Cervical back: Normal range of motion. Comments: 1+ edema present in b/l LEs Skin Coloration: Skin is not jaundiced. Findings: No bruising or rash. Neurological General: No focal deficit present. Mental Status: He is alert and oriented to person, place, and time. Gait: Gait normal. Psychiatric Mood and Affect: Mood normal. Behavior: Behavior normal. Thought Content: Thought content normal. Judgment: Judgment normal. LABORATORY DATA Lab data reviewed. RADIOLOGICAL DATA Radiology data reviewed. ASSESSMENT / PLAN # Malignant Neoplasm Of Bladder (HCC) # Ureteral Obstruction 2/2 Bladder Neoplasm # Blood loss anemia 2/2 Neoplasm Mr. 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 CT urogram was performed on 09/03/24 and revealed an 8.8 x 4.5 x 2.8 cm mass in the right lateral to posterior wall of the bladder, as well as retroperitoneal and bilateral pelvic adenopathy. TURBT was initially planned Urology for UPJ obstruction and hematuria but avoided given the patient's multivessel coronary artery disease. Coronary intervention was also not performed given avoidance of DAPT the setting of ongoing hematuria. Ultimately, the patient was referred to our clinic for consideration of systemic therapy. It was a pleasure to see Mr. Samayoa and his family in the clinic this afternoon. We discussed patient's recent labs, pathology, and imaging findings pertaining to his metastatic urothelial carcinoma. Notably, we also discussed the NCCN guideline first-line systemic treatment for metastatic bladder carcinoma: enfortumab vedotin plus pembrolizumab. We discussed expected toxicities of enfortumab vedotin (i.e rash), as well as pembrolizumab (ie rash, diarrhea, hypothyroidism, etc.). Note, neither of these therapies are expected to have cardiac or renal implications. 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 Lastly,we discussed follow-up labs, visits, and expected treatment schedule pending treatment tolerability. Labs today notable for progressively worsening creatinine, now up to 1.93 (1.74 on 10/11/24). I explained this is due to obstruction of the patient's UVJ. The last anemia remained stable at 10.0. Of note, we are hopeful to reduce tumor burden and associated hydro. We will avoid percutaneous nephrostomy tube placement at this time. PLAN: - Initiate dose reduced combination systemic therapy in 3 week cycles with: - Enfortumab-vedotin (66% standard dosing) - Pembrolizumab (50% standard dosing) - Pending tolerance, we will continue this combination therapy until disease response has stabilized. - Should disease no longer respond, but without progression, we would switch to single therapy withdose-reduced Pembrolizumab. - CT C/A/P w/ contrast staging scan (pending renal function) after cycle 3 EV Pembro. - No additional imaging at this time given this will not change our plan. - Plan start date pending prior Auth and coordination of care. PATIENT EDUCATION Ready to learn, no apparent learning barriers were identified; learning preferences include listening. Explained diagnosis and treatment plan; patient expressed understanding of the content. ADMINISTRATIVE BILLING I spent 65 minutes face to face and non-face to face caring for the patient today. Patient was seen and discussed with [place] behavioral health consultant Dr. Menjivar. Polo Dwyer M.D. Hematology/Oncology Fellow, PGY-4 Pgr: [phone] Tel: [phone] Cosigned by Alisa Menjivar M.D. at 10/18/2024 8:43 AM CDT Associated attestation - Alisa Menjivar M.D. - 10/18/2024 8:43 AM CDT To meet the patient and his significant other together with Dr. Dwyer from the Hematology and Oncology fellowship. I also spoke with Dr. Rojas in Urology. We are well aware of the medical background of the patient, not in the best of the shapes at an 78-year-old man, with coronary artery disease, symptomatic, treated medically only, not a good candidate at this point for intervention due to hematuria. We look at the imaging and he has a large bladder tumor with pelvic, retroperitoneal and retrocrural lymphadenopathy, metastasis. To complicate matters, we are told that the patient has micro papillary disease. We believe that he should start systemic therapy with pembrolizumab and unfortunately, by decreasing the dose of both. We suggested starting pembrolizumab at only 100 mg, half the usual dose and enfortumab, and a 30% dose reduction. We explained very carefully what these 2 medications are, mechanism of action and side effects. We will start the 1st 3 cycles in [place] and if he does okay, transfer his care to [place]. We need explained carefully natural history disease, including that is more likely that the treatment will be palliative instead of curative. documented in this encounter Plan of Treatment Upcoming Encounters Date Type Department Care Team (Late st Contact Info) Description 10/26/2024 12:00 PM CDT Lab Department of Laboratory Medicine and Pathology, [place], [place] [address] [place] [phone] Polo Dwyer M.D. [address] [place] [phone] 10/26/2024 1:00 PM CDT Education Department of Oncology in [place], [place] [address] [place] [phone] Polo Dwyer M.D. [address] [place] [phone] 10/26/2024 2:00 PM CDT Infusion Department of Oncology in [place], [place] [address] [place] [phone] Polo Dwyer M.D. [address] [place] [phone] 11/02/2024 12:10 PM CDT Lab Department of Laboratory Medicine and Pathology, [facility] in [place], [place] [address] [place] [phone] Alisa Menjivar M.D. [address] [place] [phone] 11/02/2024 1:00 PM CDT Clinical Support Department of Oncology in [place], [place] [address] [place] [phone] Polo Dwyer M.D. [address] [place] [phone] China Parikh M.S.W., L.I.C.S.W. [address] [place] [phone] 11/02/2024 2:00 PM CDT Infusion Department of Oncology in [address] [phone] Alisa Menjivar M.D. [address] [place] [phone] 11/12/2024 2:15 PM CDT Office Visit Department of Cardiovascular Medicine in [address] [phone] Elisa Alva M.D. [address] [place] [phone] 11/15/2024 3:30 PM CDT Clinical Communication Virtual Review in [place], [place] 200 [place] [address] 11/16/2024 8:30 AM CDT Lab Department of Laboratory Medicine and Pathology, [facility], in [address] [phone] Alisa Menjivar M.D. [address] [place] [phone] 11/16/2024 10:30 AM CDT Office Visit Department of Oncology in [place], [place] [address] [place] [address] [place] [phone] Alisa Menjivar M.D. [address] [place] [phone] 11/16/2024 2:30 PM CDT Infusion Department of Oncology in [place], [place] [address] [place] [phone] Alisa Menjivar M.D. [address] [place] [phone] 11/23/2024 8:30 AM CDT Lab Department of Laboratory Medicine and Pathology, [facility] in [place], [place] [address] [place] [phone] Alisa Menjivar M.D. [address] [place] [phone] 11/23/2024 10:30 AM CDT Infusion Department of Oncology in [place], [place] [address] [place] [phone] Alisa Menjivar M.D. [address] [place] [phone] Scheduled Orders Name Type Priority Associated Diagnoses Orde r Schedule CBC with Differential, Blood Lab Routine Malignant Neoplasm Of Bladder (HCC) Medication Therapy Beader Tender Not Anticoagulant Beader Tender Current Drug Therapy, Chemotherapy Expected: 10/26/2024, Expires: 10/27/2027 Comprehensive Metabolic Panel Lab Routine Malignant Neoplasm Of Bladder (HCC) Medication Therapy Beader Tender Not Anticoagulant Care Home Current Drug Therapy, Chemotherapy Expected: 10/26/2024, Expires: 10/26/2025 Thyroid Function [place] Lab Routine Malignant Neoplasm Of Bladder (HCC) Other Care Home Current Drug Therapy Expected: 10/26/2024, Expires: 10/26/2025 CBC, Chemotherapy, No Alerts Lab Routine Malignant Neoplasm Of Bladder (HCC) Medication Therapy Care Home Not Anticoagulant Beader Tender Current Drug Therapy, Chemotherapy Expected: 11/02/2024, Expires: 11/02/2025 Comprehensive Metabolic Panel Lab Routine Malignant Neoplasm Of Bladder (HCC) Medication Therapy Care Home Not Anticoagulant Care Home Current Drug Therapy, Chemotherapy Expected: 11/02/2024, Expires: 11/02/2025 CBC with Differential, Blood Lab Routine Malignant Neoplasm Of Bladder (HCC) Medication Therapy Beader Tender Not Anticoagulant Care Home Current Drug Therapy, Chemotherapy Expected: 11/16/2024, Expires: 11/17/2027 Comprehensive Metabolic Panel Lab Routine Malignant Neoplasm Of Bladder (HCC) Medication Therapy Care Home Not Anticoagulant Care Home Current Drug Therapy, Chemotherapy Expected: 11/16/2024, Expires: 11/16/2025 CBC, Chemotherapy, No Alerts Lab Routine Malignant Neoplasm Of Bladder (HCC) Medication Therapy Care Home Not Anticoagulant Care Home Current Drug Therapy, Chemotherapy Expected: 11/23/2024, Expires: 11/23/2025 Comprehensive Metabolic Panel Lab Routine Malignant Neoplasm Of Bladder (HCC) Medication Therapy Beader Tender Not Anticoagulant Beader Tender Current Drug Therapy, Chemotherapy Expected: 11/23/2024, Expires: 11/23/2025 Scheduled Referrals Name Type Priority Associated Diagnoses Orde r Schedule Social Work - General consult (clinic) Outpatient Referral Routine Malignant Neoplasm Of Bladder (HCC) Expected: 10/17/2024, Expires: 01/17/2026 Oncology - Chemo education visit (clinic) Outpatient Referral Routine Malignant Neoplasm Of Bladder (HCC) Medication Therapy Care Home Not Anticoagulant Beader Tender Current Drug Therapy, Chemotherapy Expected: 10/17/2024, Expires: 01/17/2026 Oncology office visit (clinic) Outpatient Referral Routine Malignant Neoplasm Of Bladder (HCC) Medication Therapy Care Home Not Anticoagulant Beader Tender Current Drug Therapy, Chemotherapy Expected: 11/16/2024, Expires: 02/16/2026 documented as of this encounter Visit Diagnoses Diagnosis Malignant Neoplasm Of Bladder (HCC)- Primary Other Beader Tender Current Drug Therapy Medication Therapy Beader Tender Not Anticoagulant Beader Tender Current Drug Therapy, Chemotherapy documented in this encounter Care Teams Lokie Engineer Relationship Specialty Start Date End Date Elsewhere, Pcp PCP - General Internal Medicine 10/09/24 documented as of this encounter
[2024-10-24 18:07] VITALS: BP 128/80; PULSE 68; RESP 20; TEMP 37.1; O2SAT 96; BMI 26.9
--- NOTE | 2024-10-24 20:43 | ED.GENADULT ---
HPI - General Adult General Chief complaint: Urogenital Problems, Male Stated complaint: Catheter problems Time Seen by Provider: 10/24/24 20:43 History of Present Illness HPI narrative: Arrives with complaints of leaking catheter. reports we replaced his catheter here yesterday and that it is leaking from the insertion site. Alert and oriented, denies pain, ABCs intact. 78-year-old man returning to the emergency department concern of leaking catheter. Seen yesterday. Urine culture still pending. Catheter was changed yesterday. Sounds like it was a bit of a challenge. Placed an 18 Croatian coude. Underlying history of bladder cancer. Has had an indwelling Bryant over the last couple of months necessitated due to outflow obstruction and urinary retention. Admittedly urine appears to be flowing well into the bag but leaking as well. Urine yesterday did look infected. No antibiotics were given yet presumably secondary to indwelling Bryant pending culture results. Has not had a fever. No particular weakness. Also concern of testicular area pain was brought up. This began today. Unknown trauma. Related Data Home Medications ?Medication ?Instructions ?Recorded ?Confirmed finasteride 5 mg tablet mg 12/07/21 04/10/22 metoprolol succinate 25 mg 25 mg PO DAILY 12/07/21 10/24/24 tablet,extended release 24 hr rosuvastatin 20 mg tablet 20 mg PO 12/07/21 04/10/22 aspirin 81 mg chewable tablet 81 mg PO DAILY 10/23/24 10/24/24 (Jaiden Chewable Low Dose Aspirin) Previous Rx's ?Medication ?Instructions ?Recorded cephalexin 500 mg capsule 500 mg PO TID 10 days #30 caps 10/23/24 Allergies Allergy/AdvReac Type Severity Reaction Status Date / Time atorvastatin (From Lipitor) Allergy Unknown Verified 10/24/24 18:06 citalopram Allergy Unknown Verified 10/24/24 18:06 Review of Systems Status of ROS: Reports: 6 or more systems reviewed and unremarkable except as noted in History and below PFSH PFS Social History Smoking Status: Former smoker What tobacco products do you use: cigarettes Smoking packs per day: 20 Smoking cigarettes per day: 400.0 Years smoked: 20 Smoking pack-years: 400.00 Smoking quit date/years: >15 years ago Do you use any of these nicotine containing products: None How often do you have a drink containing alcohol: 2-3 times a week How many standard drinks containing alcohol do you have on a typical day: 1 or 2 How often do you have six or more drinks on one occasion: Monthly AUDIT-C Alcohol total score: 5 Non-prescribed substance use: denies use service: No Exam Narrative: Exam Narrative: Pleasant. NAD. Accompanied by spouse and son I believe. Skin is warm and dry. Abdomen is soft nontender until genitourinary exam. Does have swollen and tender right testicle in particular. There is leaking of presumed urine from the urethral area where the catheter is inserted. There is no inflammatory change here. Const: Vital Signs, click to edit/add: Vital Signs - 24 hr 10/24/24 18:07 Temperature 98.7 F Pulse Rate [Pulse Oximeter] 68 Respiratory Rate 20 Blood Pressure [Ri ght Upper Arm] 128/80 Pulse Oximetry 96 Oxygen Delivery Me thod Room Air Documenting provider has reviewed patient's vital signs: yes Course Vital Signs Vital signs: Initial Vital Signs Temperature 98.7 F 10/24/24 18:07 Temperature Source Temporal Artery Scan 10/24/24 18:07 Pulse Rate 68 10/24/24 18:07 Respiratory Rate 20 10/24/24 18:07 Blood Pressure 128/80 10/24/24 18:07 Blood Pressure Mean 96 10/24/24 18:07 Pulse Oximetry 96 10/24/24 18:07 Oxygen Delivery Method Room Air 10/24/24 18:07 Vital Signs Temperature 98.7 F 10/24/24 18:07 Pulse Rate 68 10/24/24 18:07 Respiratory Rate 20 10/24/24 18:07 Blood Pressure 128/80 10/24/24 18:07 Pulse Oximetry 96 10/24/24 18:07 Oxygen Delivery Method Room Air 10/24/24 18:07 Temperature 98.7 F 10/24/24 18:07 Pulse Rate 68 10/24/24 18:07 Respiratory Rate 20 10/24/24 18:07 Blood Pressure 128/80 10/24/24 18:07 Pulse Oximetry 96 10/24/24 18:07 Oxygen Delivery Method Room Air 10/24/24 18:07 Medications Administered Medications: Discontinued Medications Generic Name Dose Route Start Last Admin Trade Name Freq PRN Reason Stop Dose Admin Lidocaine HCl 6 ml 10/24/24 21:22 10/24/24 21:37 Lidocaine Hcl 2 % Jelly (Top) Sterile UR 6 ml ONCE PRN Administration Medical Decision Making MDM Narrative Medical decision making narrative: Did attempt to flush the catheter. Is still leaking. Nursing has proposed replacing again. This was done with Uro[employer]. Replaced with coude. Sounds like it was done without significant difficulty. I am not sure how occluded this was. Perhaps simply just not sealing well otherwise. Appears to be draining urine well prior and since replaced catheter now. Concern of orchitis or other injury to testicle prompting an ultrasound. I did discuss findings with laborer chemical processing. Radiology over-read below. INDICATION: Bilateral testicular pain and swelling TECHNIQUE: Ultrasound scrotum and contents. Real-time crow scale sonographic images with spectral and color Doppler imaging of the testicles were obtained. COMPARISON: None FINDINGS: Right testis: 3.3 x 3 x 2.6 cm. The right testis is normal in appearance and echotexture. Asymmetrically increased blood flow is noted within the right testis. Left testis: 3.2 x 2 x 2.8 cm. The left testis is normal in appearance and echotexture. Normal arterial and venous blood flow seen in the left testis. Epididymis: A right epididymal head cyst is noted measuring 3 mm. Soft tissue: A small right hydrocele is present. No adenopathy is seen. Mild right erik scrotal skin thickening is noted. IMPRESSION: 1. Asymmetrically increased blood flow is noted within the right testis. Clinical correlation is recommended to exclude orchitis. Dictated by Kvng Glover MD @ 10/24/2024 11:14:38 PM Would not necessarily treat based on prior urine but with presence of orchitis as well go ahead and cover with antibiotics which will likely cover urine. Choice of Bactrim. Does have good renal function. See patient discharge plan for further discussion Stay well hydrated with water. Prescribing you some Bactrim from [facility]. We are still waiting though on a urine culture from your last visit. This might change recommendations and we will call you if necessary in that case. I am treating specifically your epididymo-orchitis today. Medical Records Medical records reviewed: Yes I reviewed the patient's medical records Discharge Plan Discharge Clinical Impression: Bryant catheter problem, Epididymo-orchitis Patient Disposition: Home w/ Parent or Adult Condition: Improved Instructions: Epididymo-Orchitis (ED) Additional Instructions: Stay well hydrated with water. Prescribing you some Bactrim from [facility]. We are still waiting though on a urine culture from your last visit. This might change recommendations and we will call you if necessary in that case. I am treating specifically your epididymo-orchitis today. Activity Level: No Restrictions Discharge Diet: Regular Prescriptions: No Action metoprolol succinate 25 mg tablet extended release 24 hr 25 mg PO DAILY finasteride 5 mg tablet rosuvastatin 20 mg tablet 20 mg PO aspirin [Jaiden Chewable Aspirin] 81 mg tablet,chewable 81 mg PO DAILY cephalexin 500 mg capsule 500 mg PO TID 10 Days Qty: 30 0RF Follow Up/Referrals: Osorio Galvan MD [Primary Care Provider, Family Practice] Stand Alone Forms: Tiny Post Info Instructions
--- NOTE | 2024-10-24 20:54 | CRLHL7_ITS ---
For Patients: As a result of the Cures Act, medical imaging exams and procedure reports are released immediately into your electronic medical record. You may view this report before your referring provider. If you have questions, please contact your health care provider. INDICATION: Bilateral testicular pain and swelling TECHNIQUE: Ultrasound scrotum and contents. Real-time crow scale sonographic images with spectral and color Doppler imaging of the testicles were obtained. COMPARISON: None FINDINGS: Right testis: 3.3 x 3 x 2.6 cm. The right testis is normal in appearance and echotexture. Asymmetrically increased blood flow is noted within the right testis. Left testis: 3.2 x 2 x 2.8 cm. The left testis is normal in appearance and echotexture. Normal arterial and venous blood flow seen in the left testis. Epididymis: A right epididymal head cyst is noted measuring 3 mm. Soft tissue: A small right hydrocele is present. No adenopathy is seen. Mild right erik scrotal skin thickening is noted. IMPRESSION: 1. Asymmetrically increased blood flow is noted within the right testis. Clinical correlation is recommended to exclude orchitis. Dictated by Kvng Glover MD @ 10/24/2024 11:14:38 PM Dictated by: Kvng Glover MD @ 10/24/2024 23:14:45 (Electronically Signed)
--- OUTSIDE RECORDS SUMMARY | 2024-10-24 21:13 | XMS_ITS | Encounter Summary ---
Author Organization [facility] Address [address] [place] [address] Care Team Providers Care Cook Mess Name Role Phone Elsewhere, Pcp Primary Care Provider Unavailabl e Encounter Details Date Type Department Care Team (Late st Contact Info) Description 10/13/2024 Documentation Department of Urology in [place], [place] [address] [place] [phone] Charla Childress M.D. [address] [place] [address] Social History Tobacco Use Types Packs/Day Years Used Date Smoking Tobacco: Former Smokeless Tobacco: Never Alcohol Use Standard Drinks/Week Comments Yes 3 (1 standard drink = 0.6 oz pur e alcohol) [facility] Utilities Answer Date Recorded In the past 12 months has [facility], gas, oil, or water [employer] threatened to shut off services in your [...] your living situation today? I have a [facility] place to live 10/09/2024 Education Answer Date Recorded What is the highest level of school you have completed or the highest degree you have received? 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 - 10/13/2024 1:15 PM CDT Error. documented in this encounter Plan of Treatment Upcoming Encounters Date Type Department Care Team (Late st Contact Info) Description 10/26/2024 12:00 PM CDT Lab Department of Laboratory Medicine and Pathology, [facility], in [place], [place] [address] [place] [address] Polo Dwyer M.D. [address] [place] [address] 10/26/2024 1:00 PM CDT Education Department of Oncology in [place], [place] [address] [place] [phone] Polo Dwyer M.D. [address] [place] [phone] 10/26/2024 2:00 PM CDT Infusion Department of Oncology in [place], [place] [address] [place] [phone] Polo Dwyer M.D. [address] [place] [phone] 11/02/2024 12:10 PM CDT Lab Department of Laboratory Medicine and Pathology, [facility] in [place], [place] [address] [place] [phone] Alisa Menjivar M.D. [address] [place] [phone] 11/02/2024 1:00 PM CDT Clinical Support Department of Oncology in [place], [place] [address] [place] [phone] Polo Dwyer M.D. [address] [place] [phone] China Parikh M.S.W., L.I.C.S.W. [address] [place] [phone] 11/02/2024 2:00 PM CDT Infusion Department of Oncology in [place], [place] [address] [place] [phone] Alisa Menjivar M.D. [address] [place] [phone] 11/12/2024 2:15 PM CDT Office Visit Department of Cardiovascular Medicine in [place], [place] [address] [place] [phone] Elisa Alva M.D. [address] [place] [phone] 11/15/2024 3:30 PM CDT Clinical Communication Virtual Review in [place], [place] 200 [place] [address] 11/16/2024 8:30 AM CDT Lab Department of Laboratory Medicine and Pathology, [facility], in [place], [place] [address] [place] [phone] Alisa Menjivar M.D. [address] [place] [phone] 11/16/2024 10:30 AM CDT Office Visit Department of Oncology in [place], [place] [address] [place] [phone] Alisa Menjivar M.D. [address] [place] [phone] 11/16/2024 2:30 PM CDT Infusion Department of Oncology in [place], [place] [address] [place] [phone] Alisa Menjivar M.D. [address] [place] [phone] 11/23/2024 8:30 AM CDT Lab Department of Laboratory Medicine and Pathology, [facility], in [place], [place] [address] [place] [phone] Alisa Menjivar M.D. [address] [place] [phone] 11/23/2024 10:30 AM CDT Infusion Department of Oncology in [place], [place] [address] [place] [phone] Alisa Menjivar M.D. [address] [place] [phone] documented as of this encounter Visit Diagnoses Not on filedocumented in this encounter Care Teams Cook Mess Relationship Specialty Start Date End Date Elsewhere, Pcp PCP - General Internal Medicine 10/09/24 documented as of this encounter
--- OUTSIDE RECORDS SUMMARY | 2024-10-24 21:13 | XMS_ITS | Encounter Summary ---
Author Organization [facility] Address [address] [place] [address] Care Team Providers Care Credit Underwriter Name Role Phone Elsewhere, Pcp Primary Care Provider Unavailabl e Encounter Details Date Type Department Care Team (Late st Contact Info) Description 10/13/2024 Orders Only Department of Urology in [place], [place] [address] [place] [phone] Charla Childress M.D. [address] [place] [address] Social History Tobacco Use Types Packs/Day Years Used Date Smoking Tobacco: Former Smokeless Tobacco: Never Alcohol Use Standard Drinks/Week Comments Yes 3 (1 standard drink = 0.6 oz pur e alcohol) [facility] Utilities Answer Date Recorded In the past 12 months has [facility] [employer], gas, oil, or water [employer] threatened to shut off services in your [...] your living situation today? I have a [facility] place to live 10/09/2024 Education Answer Date Recorded What is the highest level of school you have completed or the highest degree you have received? 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 [address] [place] [phone] 10/26/2024 1:00 PM CDT Education Department of Oncology in [place], [place] [address] [place] [address] Polo Dwyer M.D. 200 [place] [phone] 10/26/2024 2:00 PM CDT Infusion Department of Oncology in [place], [place] [address] [place] [phone] Polo Dwyer M.D. [address] [place] [phone] 11/02/2024 12:10 PM CDT Lab Department of Laboratory Medicine and Pathology, [facility] in [place], [place] [address] [place] [phone] Alisa Menjivar M.D. [address] [place] [phone] 11/02/2024 1:00 PM CDT Clinical Support Department of Oncology in [place], [place] [address] [place] [phone] Polo Dwyer M.D. [address] [place] [phone] China Parikh, M.S.W., L.I.C.S.W. [address] [place] [phone] 11/02/2024 2:00 PM CDT Infusion Department of Oncology in [address] [phone] Alisa Menjivar M.D. [address] [place] [phone] 11/12/2024 2:15 PM CDT Office Visit Department of Cardiovascular Medicine in [place], [place] [address] [place] [phone] Elisa Alva M.D. [address] [place] [phone] 11/15/2024 3:30 PM CDT Clinical Communication Virtual Review in [place], [place] [address] [place] [phone] 11/16/2024 8:30 AM CDT Lab Department of Laboratory Medicine and Pathology, [facility] in [place], [place] [address] [place] [phone] Alisa Menjivar M.D. [address] [place] [phone] 11/16/2024 10:30 AM CDT Office Visit Department of Oncology in [place], [place] [address] [place] [phone] Alisa Menjivar M.D. [address] [place] [phone] 11/16/2024 2:30 PM CDT Infusion Department of Oncology in [place], [place] [address] [place] [phone] Alisa Menjivar M.D. [address] [place] [phone] 11/23/2024 8:30 AM CDT Lab Department of Laboratory Medicine and Pathology, [facility], in [place], [place] [address] [place] [phone] Alisa Menjivar M.D. [address] [place] [phone] 11/23/2024 10:30 AM CDT Infusion Department of Oncology in [address] [phone] Alisa Menjivar M.D. [address] [place] [phone] documented as of this encounter Visit Diagnoses Not on filedocumented in this encounter Care Teams Credit Underwriter Relationship Specialty Start Date End Date Elsewhere, Pcp PCP - General Internal Medicine 10/09/24 documented as of this encounter
--- OUTSIDE RECORDS SUMMARY | 2024-10-24 21:13 | XMS_ITS | Encounter Summary ---
Author Organization [facility] Address [address] [place] [address] Care Team Providers Care Conventional Machinist Name Role Phone Elsewhere, Pcp Primary Care Provider Unavailabl e Reason for Visit * Reason Onset Date Comments Order Request 10/23/2024 Encounter Details Date Type Department Care Team ([facility] st Contact Info) Description 10/23/2024 Clinical Communication Department of Oncology in [place], [place] [address] [place] [phone] Alisa Menjivar M.D. [address] [place] [phone] Order Request Social History Tobacco Use Types Packs/Day Years Used Date Smoking Tobacco: Former Smokeless Tobacco: Never Alcohol Use Standard Drinks/Week Comments Yes 3 (1 standard drink = 0.6 oz pur e alcohol) [facility] Utilities Answer Date Recorded In the past 12 months has [facility] Ium, gas, oil, or water IS Decisions threatened to shut off services in your [...] your living situation today? I have a [facility] place to live 10/09/2024 Education Answer Date Recorded What is the highest level of school you have completed or the highest degree you have received? 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 [address] [place] [phone] 10/26/2024 1:00 PM CDT Education Department of Oncology in [place], [place] [address] [place] [phone] Polo Dwyer M.D. [address] [place] [phone] 10/26/2024 2:00 PM CDT Infusion Department of Oncology in [place], [place] [address] [place] [phone] Polo Dwyer M.D. [address] [place] [phone] 11/02/2024 12:10 PM CDT Lab Department of Laboratory Medicine and Pathology, [facility], in [place], [place] [address] [place] [address] Alisa Menjivar M.D. [address] [place] [phone] 11/02/2024 1:00 PM CDT Clinical Support Department of Oncology in [place], [place] [address] [place] [phone] Polo Dwyer M.D. [address] [place] [phone] China Parikh, M.S.W., L.I.C.S.W. [address] [place] [phone] 11/02/2024 2:00 PM CDT Infusion Department of Oncology in [place], [place] [address] [place] [phone] Alisa Menjivar M.D. [address] [place] [phone] 11/12/2024 2:15 PM CDT Office Visit Department of Cardiovascular Medicine in [place], [place] [address] [place] [phone] Elisa Alva M.D. [address] [place] [phone] 11/15/2024 3:30 PM CDT Clinical Communication Virtual Review in [place], [place] 200 [place] [phone] 11/16/2024 8:30 AM CDT Lab Department of Laboratory Medicine and Pathology, [facility] in [place], [place] [address] [place] [phone] Alisa Menjivar M.D. [address] [place] [phone] 11/16/2024 10:30 AM CDT Office Visit Department of Oncology in [place], [place] [address] [place] [phone] Alisa Menjivar M.D. [address] [place] [phone] 11/16/2024 2:30 PM CDT Infusion Department of Oncology in [place], [place] [address] [place] [phone] Alisa Menjivar M.D. [address] [place] [phone] 11/23/2024 8:30 AM CDT Lab Department of Laboratory Medicine and Pathology, [facility], in [place], [place] [address] [place] [phone] Alisa Menjivar M.D. [address] [place] [phone] 11/23/2024 10:30 AM CDT Infusion Department of Oncology in [place], [place] [address] [place] [phone] Alisa Menjivar M.D. [address] [place] [phone] documented as of this encounter Visit Diagnoses Not on filedocumented in this encounter Care Teams Conventional Machinist Relationship Specialty Start Date End Date Elsewhere, Pcp PCP - General Internal Medicine 10/09/24 documented as of this encounter
--- OUTSIDE RECORDS SUMMARY | 2024-10-24 21:14 | XMS_ITS | Clinical Summary ---
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 We will proceed with medical therapy for [...] Encounters Date Type Department Care Team Description 10/24/2024 Nurse Triage [facility] [address] [place] [address] Osorio Galvan MD Catheter Problem 10/23/2024 Nurse Triage [facility] [address] [place] [address] Osorio Galvan MD Catheter Problem 10/23/2024 Nurse Triage [facility] [address] [place] [address] Osorio Galvan MD Catheter Problem 10/22/2024 10:00 AM CDT Office Visit [facility] [address] [place] [address] Osorio Galvan MD [facility] F/U ([place] 10/07-10/11 ) 10/22/2024 Travel 10/18/2024 9:00 AM CDT Nurse/Clinic Staff Only [facility] [address] [facility] [address] Immunization/Injec tion (VITAMIN B-12 INJECTION ) 10/18/2024 Travel 10/16/2024 8:15 AM CDT Office Visit [facility] [address] [place] [address] Vaishnavi Deng MD [facility] F/U 10/15/2024 Travel 10/12/2024 Telephone [facility] [address] [place] [address] Osorio Galvan MD Lab (Blood work needed) 10/10/2024 Orders Only [facility] Scanner 1 scan: (1-Ord) [place], CORONARY ANGIOGRAPHY, 10/10/2024 09/10/2024 4:15 PM CDT Nurse/Clinic Staff Only [facility] [address] [facility] [address] Immunization/Injec tion (B12) 09/10/2024 Travel 08/27/2024 Orders Only [facility] Scanner 1 scan: (1-Ord) [facility], CT ABDOMEN PELVIS W CON, 08/27/2024 08/24/2024 11:20 AM CDT Office Visit [facility] [address] [place] [address] Osorio Galvan MD Hospital F/U (ANW - bladder/kidney obstruction/Has catheter placed); Memory Loss (Daughter asking about memory concerns); Referral (Home care referral) 08/24/2024 Travel 08/22/2024 Telephone [facility] [address] [facility] [address] Osorio Galvan MD Questions (Request ) 08/22/2024 Telephone [facility] [address] [place] [address] Osorio Galvan MD Appointment (Request ) 08/16/2024 Orders Only [facility] Scanner 1 scan: (1-Ord) [place], MULTIPLE LABS, 08/16/2024 08/15/2024 Patient Outreach [facility] [address] [place] [address] More Watson, RN Primary RN Care Management; Hospital F/U (LACE 56) 08/12/2024 7:45 PM CDT - 08/14/2024 5:36 PM CDT Hospital Encounter [facility] [address] [place] [address] Yvette Duffy MD [facility] [place], DO Maryana Nagy Amrith, MD Discharge Disposition: Home Self Care 08/12/2024 Orders Only [facility] Scanner 1 scan: (1-Ord) [facility], CT ABDOMEN PELVIS W CON, 08/12/2024 08/12/2024 Travel 08/09/2024 Lab Requisition [facility] [phone] Loyd Broussard MD 08/08/2024 9:15 AM CDT Office Visit [facility] [address] [place] [phone] Loyd Broussard MD 07/27/2024 10:05 AM CDT Office Visit [facility] [address] [place] [address] Osorio Galvan MD Medicare ANNUAL (subsequent) Visit (80 years); Preoperative Exam (Colonoscopy 08/08) 07/27/2024 Travel from Last 3 Months Immunizations Immunization Administration Dates Next Due Amb Influenza, Inact (High-d ose) (Flu Clinic Only) 12/26/2015,12/26/2015,01/15/2014 COVID-19 VACCINE SPIKEVAX (M ODERNA 50MCG/0.5ML) 12YO+ PFS 05/31/2023,01/11/2023 COVID-19 vaccine (Pfizer-Bio NTech 30mcg/0.3mL) 12YO+ BIVALENT PF, MDV 08/12/2022,12/28/2021 COVID-19 vaccine (Chartboost NTech 30mcg/0.3mL) 12YO+ LESLI-SUCROSE PF, MDV 06/30/2021 COVID-19 vaccine (Chartboost NTech 30mcg/0.3mL) PF, MDV 12/24/2020,06/12/2020,05/22/2020 Influenza, High-dose [...] on file 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 Gender Identity Not on file Sexual Orientation [...] Description 11/06/2024 9:00 AM CDT Orders Only [facility] [address] [phone] Clementine Ordaz 11/16/2024 10:05 AM CDT Office Visit [facility] [address] [facility] [place] [address] Osorio Galvan MD [address] [place] [address] Health Maintenance Due Date Last Done Comments [...] this topic Medical Devices Implanted Type Area Marketing Automation Specialist Device Identifier Shelf Expiration Date Model / Serial / Lot Tissue Pericardium 0.8x8cm Xenosure - [id number] Implanted:Qty: 1 on 03/10/2020 by Iisdro Smiley MD at [facility] Right: Carotid Artery [employer] 07/23/2025 0.8P8# / / [id number] Procedures Procedure Name Priority Date/Time Associated Diagnosis [...] included. GLUCOSE 94 65 - 99 mg/dL Code [facility] salvador Oliveros Comment: Fasting reference interval UREA NITROGEN (BUN) 19 7 - 25 mg/dL [facility] CREATININE 1.70(H) 0.70 - 1.22 mg/dL Code [facility] EGFR 40(L) > OR = 60 mL/min/1.7 3m2 [employer] BUN/CREATININE RATIO 11 6 - 22 (calc) [employer] SODIUM 138 135 - 146 mmol/L [employer] POTASSIUM 4.6 3.5 - 5.3 mmol/L [employer] CHLORIDE 102 98 - 110 mmol/L [facility] CARBON DIOXIDE 30 20 - 32 mmol/L Code [facility] ELECTROLYTE BALANCE 6(L) 7 - 17 mmol/L (calc) [employer] CALCIUM 8.8 8.6 - 10.3 mg/dL [email or web address] ood Domo Blood BLOOD SPECIMEN / Unknown 10/22/2024 11:10 AM CDT 10/22/2024 11:11 AM CDT us Osorio Galvan MD CHEMISTRY Final Resu lt ttwick [facility] [address] [place] [address], [place] [phone] [employer] [employer] [address] [place] [phone] * SCAN-ANGIOGRAM (10/10/2024 12:00 AM CDT) Anatomical [...] - 17.5 g/dL 08/14/2024 7:24 AM CDT [facility] MCV 98 80 - 100 fL 08/14/2024 7:24 AM CDT [facility] Blood BLOOD SPECIMEN / Unknown Venipuncture / Unknown 08/14/2024 7:10 AM CDT 08/14/2024 7:16 AM CDT us Polo Huizar MD HEMATOLOGY Final Result Performing Organization Address City/State/[facility] Co de Phone Number [facility] [address] [place] [address], * US RENAL AND BLADDER COMPLETE (08/13/2024 [...] suspicious renal lesion. Bladder: Collapsed around a Braynt catheter with bladder measuring 5.8 x 3.2 [...] 11.0 thou/cu mm 08/13/2024 7:56 AM CDT [facility] RED BLOOD COUNT 3.45(L) 4.30 - 5.90 mil/cu mm 08/13/2024 7:56 AM CDT [facility] HEMOGLOBIN 11.6(L) 13.5 - 17.5 g/dL 08/13/2024 7:56 AM CDT [facility] HEMATOCRIT 34.0(L) 37.0 - 53.0 % 08/13/2024 7:56 AM CDT [facility] MCV 99 80 - 100 fL 08/13/2024 7:56 AM CDT [facility] MCH 33.6 26.0 - 34.0 pg 08/13/2024 7:56 AM CDT [facility] MCHC 34.1 32.0 - 36.0 g/dL 08/13/2024 7:56 AM CDT [facility] RDW 12.8 11.5 - 15.5 % 08/13/2024 7:56 AM CDT [facility] PLATELET COUNT 157 140 - 440 thou/cu mm 08/13/2024 7:56 AM CDT [facility] MPV 9.6 6.5 - 11.0 fL 08/13/2024 7:56 AM CDT [facility] NRBC 0.0 % 08/13/2024 7:56 AM CDT [facility] ABS NRBC 0.0 thou /cu mm 08/13/2024 7:56 AM T [facility] Blood BLOOD SPECIMEN / Unknown Venipuncture / Unknown 08/13/2024 7:27 AM CDT 08/13/2024 7:48 AM CDT us Meli Emmanuel DO HEMATOLOGY Gabriella l Result [facility] [address] [place] [address], [place] * PSA TOTAL (08/13/2024 7:27 AM CDT) PSA TOTAL 0.40 <4.00 ng/mL 08/13/2024 8:37 AM CDT [facility] Blood BLOOD SPECIMEN / Unknown Venipuncture / Unknown 08/13/2024 7:27 AM CDT 08/13/2024 7:48 AM CDT Narrative [facility] - 08/13/2024 8:37 AM CDT The [...] CHEMISTRY Gabriella l Result Performing Organization Address City/[facility]/ZIP Co de Phone Number [facility] [address] [place] [address], * LAB TRACKING EVENT (08/08/2024 10:36 AM CDT) Other (Other) Client Collect / Unknown 08/08/2024 10:36 AM CDT 08/09/2024 7:01 AM CDT Loyd Broussard MD LAB BILL ONLY Final Res ult [facility] [address] [place] [address], [place] * PATH TISSUE EXAM (08/08/2024 10:36 AM CDT) Case Report Pathology Report Case: [id number] Authorizing Provider: Loyd Broussard MD Collected: 08/08/2024 1036 Ordering Location: [facility] Received: 08/09/2024 0923 Pathologist: Shivam Nicole MD Specimen: Rectal Biopsy 08/13/2024 1:34 PM CDT [facility] Final Diagnosis A) RECTUM, POLYPECTOMY: 1. Hyperplastic polyp 08/13/2024 1:34 PM CDT [facility] at 1334 CDT Clinical Information Surveillance colonoscopy Colonoscopy findings: Single rectal polyp, completely removed. 08/13/2024 1:34 PM CDT [facility] Gross Description A) Received in formalin is a abraham mucosal fragment measuring 6 mm in greatest dimension, which is entirely submitted in one cassette. It is labeled with the patient's name and designated rectum. Ava Khari 08/09/2024 1:07 PM 08/13/2024 1:34 PM CDT [facility] Microscopic Description The final diagnosis is based on microscopic examination of appropriate sections of all specimens. 08/13/2024 1:34 PM CDT [facility] Additional Information Interpreted at [facility] - [address], [place] [address] 08/13/2024 1:34 PM CDT [facility] Other (Rectal Biopsy) 08/08/2024 10:36 AM CDT 08/09/2024 9:23 AM CDT Loyd Broussard MD PATHOLOGY/CYTOLOGY Final Result [facility] [address] [place] [address], * COLONOSCOPY SCREENING (08/08/2024 12:00 AM CDT) Loyd Broussard MD GI PROCEDURE ORD Edited R esult - Final from Last 3 Months Insurance MEDICARE [place] ONLY [facility] PB ONLY Member Subscriber Plan / Payer ( fective 2016-Present) Name:Hernandez Samayoa Relation to Subscriber:Self Name:Hernandez Samayoa Payer ID:Not on file Group ID:NONE Type:Not on file Address: [address] [place] ONLY MEDICARE PART B HB [...] Comments Code Status Discussion: Discussed Care Teams Case Management Rn Relationship Specialty Start Date End Date Osorio Galvan [place] [address] PCP - General Family Practice 07/20/12
--- OUTSIDE RECORDS SUMMARY | 2024-10-24 21:14 | XMS_ITS | Encounter Summary ---
Author Organization [facility] Address [address] [place] [address] Care Team Providers Care Warp Tester Name Role Phone Elsewhere, Pcp Primary Care Provider Unavailabl e Reason for Referral * Outpatient (Routine) - Authorized Specialty Diagnoses / Procedures Referred By Contac t Referred To Contact Diagnoses Pain Chest Procedures NM Cardiac Perfusion Rest and Stress SPECT Ab Shabazz MPAS, P.A.-C., M.S. [address] [place] [address] Phone: tel: fax: [facility] Referral ID Status Reason Start Date Expiration Date V isits Requested Visits Authorized [id number] Authorized 10/02/2024 01/02/2026 8 8 Reason for Visit * Reason Onset Date Comments Triage 10/01/2024 Santiago Alvares Preop # [id number] Encounter Details Date Type Department Care Team (Latest Contact Info) Description 10/01/2024 Clinical Communication Department of Cardiovascular Medicine in [place], [place] [address] [place] [phone] Photoengraving SupervisorMarco Antonio M.D. Triage (Dia Anesthesia Preop # [id number]) Social History Tobacco Use Types Packs/Day Years Used Date Smoking Tobacco: Former Smokeless Tobacco: Never Alcohol Use Standard Drinks/Week Comments Yes 6 (1 standard drink = 0.6 oz pur e alcohol) [facility] Utilities Answer Date Recorded In [...] your living situation today? I have a [facility] place to live 09/04/2024 Education Answer Date Recorded What is the highest level of school you have completed or the highest degree you have received? 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 We willproceed with medical therapy for chronic [...] Lab Department of Laboratory Medicine and Pathology, [facility], in [place], [place] [address] [place] [phone] Polo Dwyer M.D. [address] [place] [phone] 10/26/2024 1:00 PM CDT Education Department of Oncology in [place], [place] [address] [place] [phone] Polo Dwyer M.D. [address] [place] [phone] 10/26/2024 2:00 PM CDT Infusion Department of Oncology in [place], [place] [address] [place] [phone] Polo Dwyer M.D. [address] [place] [phone] 11/02/2024 12:10 PM CDT Lab Department of Laboratory Medicine and Pathology, [facility] in [place], [place] [address] [place] [phone] Alisa Menjivar M.D. [address] [place] [phone] 11/02/2024 1:00 PM CDT Clinical Support Department of Oncology in [place], [place] [address] [place] [phone] Polo Dwyer M.D. [address] [place] [phone] China Parikh, M.S.W., L.I.C.S.W. [address] [place] [phone] 11/02/2024 2:00 PM CDT Infusion Department of Oncology in [place], [place] [address] [place] [phone] Alisa Menjivar M.D. [address] [place] [phone] 11/12/2024 2:15 PM CDT Office Visit Department of Cardiovascular Medicine in [address] [phone] Elisa Alva M.D. [address] [place] [phone] 11/15/2024 3:30 PM CDT Clinical Communication Virtual Review in [place], [place] [address] [place] [address] 11/16/2024 8:30 AM CDT Lab Department of Laboratory Medicine and Pathology, [facility], in [address] [phone] Alisa Menjivar M.D. [address] [place] [phone] 11/16/2024 10:30 AM CDT Office Visit Department of Oncology in [place], [place] [address] [place] [address] Alisa Menjivar M.D. [address] [place] [phone] 11/16/2024 2:30 PM CDT Infusion Department of Oncology in [place], [place] [address] [place] [address] Alisa Menjivar M.D. [address] [place] [phone] 11/23/2024 8:30 AM CDT Lab Department of Laboratory Medicine and Pathology, [facility], in [place], [place] [address] [place] [address] Alisa Menjivar M.D. [address] [place] [phone] 11/23/2024 10:30 AM CDT Infusion Department of Oncology in [place], [place] [address] [place] [address] Alisa Menjivar M.D. [address] [place] [phone] documented as of this encounter Results * NM Cardiac Perfusion Rest and Stress SPECT (10/09/2024 8:57 AM CDT) 10/09/2024 7:13 AM CDT Narrative [facility] - 10/09/2024 10:42 AM CDT See PDF For Result Procedure Note Taina Galloway M.D. - 10/09/2024 See PDF For Result Ab ABBOTT PJonathan., M.S. TOBY MORAN Final Result [facility]GE NA documented in this encounter Visit Diagnoses Diagnosis Pain Chest- Primary Pain Chest documented in this encounter Care Teams Warp Tester Relationship Specialty Start Date End Date Elsewhere, Pcp PCP - General Internal Medicine 10/09/24 documented as of this encounter
--- OUTSIDE RECORDS SUMMARY | 2024-10-24 21:17 | XMS_ITS | Encounter Summary ---
Author Organization [facility] Address [address] [place] [address] Care Team Providers Care Acquisition Specialist Name Role Phone Elsewhere, Pcp Primary Care Provider Unavailabl e Encounter Details Date Type Department Care Team (Late st Contact Info) Description 10/02/2024 Results Follow-Up Department of Urology in [place], [place] [address] [place] [address] Charla Childress M.D. [address] [place] [address] Bacterial Culture, Aerobic + Susceptibility, Urine, Urinalysis, with Microscopic: Urine, Midstream, Osmolality, Urine, Additional followed-up results: 3 Social History Tobacco Use Types Packs/Day Years Used Date Smoking Tobacco: Former Smokeless Tobacco: Never Alcohol Use Standard Drinks/Week Comments Yes 6 (1 standard drink = 0.6 oz pur e alcohol) [facility] Utilities Answer Date Recorded In the past 12 months has e [employer], gas, oil, or water [employer] threatened to shut off services in your [...] 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, SMOKING TOBACCO CUTTER OPERATOR, BERTA) 05/11/2020 Sex and Gender Information Value Date Recorded Sex Assigned at Male 09/04/2024 9:32 AM CDT 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 [address] [place] [phone] 10/26/2024 1:00 PM CDT Education Department of Oncology in [place], [place] [address] [place] [phone] Polo Dwyer M.D. [address] [place] [phone] 10/26/2024 2:00 PM CDT Infusion Department of Oncology in [place], [place] [address] [place] [phone] Polo Dwyer M.D. [address] [place] [phone] 11/02/2024 12:10 PM CDT Lab Department of Laboratory Medicine and Pathology, [facility] in [place], [place] [address] [place] [phone] Alisa Menjivar M.D. [address] [place] [phone] 11/02/2024 1:00 PM CDT Clinical Support Department of Oncology in [address] [phone] Polo Dwyer M.D. [address] [place] [phone] China Parikh M.S.W., L.I.C.S.W. [address] [place] [phone] 11/02/2024 2:00 PM CDT Infusion Department of Oncology in [address] [phone] Alisa Menjivar M.D. [address] [place] [phone] 11/12/2024 2:15 PM CDT Office Visit Department of Cardiovascular Medicine in [address] [phone] Elisa Alva M.D. [address] [place] [phone] 11/15/2024 3:30 PM CDT Clinical Communication Virtual Review in [place], [place] 200 [place] [phone] 11/16/2024 8:30 AM CDT Lab Department of Laboratory Medicine and Pathology, [facility] in [place], [place] [address] [place] [phone] Alisa Menjivar M.D. [address] [place] [phone] 11/16/2024 10:30 AM CDT Office Visit Department of Oncology in [address] [phone] Alisa Menjivar M.D. [address] [place] [phone] 11/16/2024 2:30 PM CDT Infusion Department of Oncology in [address] [phone] Alisa Menjivar M.D. [address] [place] [phone] 11/23/2024 8:30 AM CDT Lab Department of Laboratory Medicine and Pathology, [facility], in [address] [phone] Alisa Menjivar M.D. [address] [place] [phone] 11/23/2024 10:30 AM CDT Infusion Department of Oncology in [address] [phone] Alisa Menjivar M.D. [address] [place] [phone] documented as of this encounter Visit Diagnoses Not on filedocumented in this encounter Care Teams Acquisition Specialist Relationship Specialty Start Date End Date Elsewhere, Pcp PCP - General Internal Medicine 10/09/24 documented as of this encounter
--- OUTSIDE RECORDS SUMMARY | 2024-10-24 21:17 | XMS_ITS | Encounter Summary ---
Author Organization [facility] Address [address] [place] [address] Care Team Providers Care Fill Manager Name Role Phone Elsewhere, Pcp Primary Care Provider Unavailabl e Encounter Details Date Type Department Care Team (Late st Contact Info) Description 10/02/2024 Orders Only Department of Urology in [place], [place] [address] [place] [phone] Charla Childress M.D. [address] [place] [address] Mass Bladder (Primary Dx) Social History Tobacco Use Types Packs/Day Years Used Date Smoking Tobacco: Former Smokeless Tobacco: Never Alcohol Use Standard Drinks/Week Comments Yes 6 (1 standard drink = 0.6 oz pur e alcohol) [facility] Utilities Answer Date Recorded In the past 12 months has [facility] [email or web address], gas, oil, or water [employer] threatened to shut off services in your [...] your living situation today? I have a [facility] place to live 10/09/2024 Education Answer Date Recorded What is the highest level of school you have completed or the highest degree you have received? 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 [address] [place] [phone] 10/26/2024 1:00 PM CDT Education Department of Oncology in [place], [place] [address] [place] [address] Polo Dwyer M.D. 200 [place] [phone] 10/26/2024 2:00 PM CDT Infusion Department of Oncology in [place], [place] [address] [place] [phone] Polo Dwyer M.D. [address] [place] [phone] 11/02/2024 12:10 PM CDT Lab Department of Laboratory Medicine and Pathology, [facility] in [place], [place] [address] [place] [phone] Alisa Menjivar M.D. [address] [place] [phone] 11/02/2024 1:00 PM CDT Clinical Support Department of Oncology in [address] [phone] Polo Dwyer M.D. [address] [place] [phone] China Parikh, M.S.W., L.I.C.S.W. [address] [place] [phone] 11/02/2024 2:00 PM CDT Infusion Department of Oncology in [address] [phone] Alisa Menjivar M.D. [address] [place] [phone] 11/12/2024 2:15 PM CDT Office Visit Department of Cardiovascular Medicine in [address] [phone] Elisa Alva M.D. [address] [place] [phone] 11/15/2024 3:30 PM CDT Clinical Communication Virtual Review in [place], [place] 200 [place] [address] 11/16/2024 8:30 AM CDT Lab Department of Laboratory Medicine and Pathology, [facility] in [place], [place] [address] [place] [phone] Alisa Menjivar M.D. [address] [place] [phone] 11/16/2024 10:30 AM CDT Office Visit Department of Oncology in [place], [place] [address] [place] [phone] Alisa Menjivar M.D. [address] [place] [phone] 11/16/2024 2:30 PM CDT Infusion Department of Oncology in [place], [place] [address] [place] [phone] Alisa Menjivar M.D. [address] [place] [phone] 11/23/2024 8:30 AM CDT Lab Department of Laboratory Medicine and Pathology, [facility], in [address] [phone] Alisa Menjivar M.D. [address] [place] [phone] 11/23/2024 10:30 AM CDT Infusion Department of Oncology in [address] [phone] Alisa Menjivar M.D. [address] [place] [phone] documented as of this encounter Visit Diagnoses Diagnosis Mass Bladder- Primary documented in this encounter Care Teams Fill Manager Relationship Specialty Start Date End Date Elsewhere, Pcp PCP - General Internal Medicine 10/09/24 documented as of this encounter
--- OUTSIDE RECORDS SUMMARY | 2024-10-24 21:17 | XMS_ITS | Encounter Summary ---
Author Organization [facility] Address [address] [place] [address] Care Team Providers Care Court Orderly Name Role Phone Elsewhere, Pcp Primary Care Provider Unavailabl e Reason for Visit * Reason Onset Date Comments OPC PROC 10/09/2024 Encounter Details Date Type Department Care Team (Late st Contact Info) Description 10/09/2024 Clinical Communication Department of Urology in [place], [place] [address] [place] [phone] Braulio Martins OPC PROC Social History Tobacco Use Types Packs/Day Years Used Date Smoking Tobacco: Former Smokeless Tobacco: Never Alcohol Use Standard Drinks/Week Comments Yes 3 (1 standard drink = 0.6 oz pur e alcohol) [facility] Utilities Answer Date Recorded In the past 12 months has [facility] [employer], gas, oil, or water [employer] threatened to shut off services in your [...] your living situation today? I have a [facility] place to live 10/09/2024 Education Answer Date Recorded What is the highest level of school you have completed or the highest degree you have received? 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 [address] [place] [phone] 10/26/2024 1:00 PM CDT Education Department of Oncology in [place], [place] [address] [place] [address] Polo Dwyer M.D. [address] [place] [phone] 10/26/2024 2:00 PM CDT Infusion Department of Oncology in [place], [place] [address] [place] [phone] Polo Dwyer M.D. [address] [place] [phone] 11/02/2024 12:10 PM CDT Lab Department of Laboratory Medicine and Pathology, [facility] in [place], [place] [address] [place] [phone] Alisa Menjivar M.D. [address] [place] [phone] 11/02/2024 1:00 PM CDT Clinical Support Department of Oncology in [address] [phone] Polo Dwyer M.D. [address] [place] [phone] China Parikh, M.S.W., L.I.C.S.W. [address] [place] [phone] 11/02/2024 2:00 PM CDT Infusion Department of Oncology in [address] [phone] Alisa Menjivar M.D. [address] [place] [phone] 11/12/2024 2:15 PM CDT Office Visit Department of Cardiovascular Medicine in [address] [phone] Elisa Alva M.D. [address] [place] [phone] 11/15/2024 3:30 PM CDT Clinical Communication Virtual Review in [place], [place] 200 [place] [address] 11/16/2024 8:30 AM CDT Lab Department of Laboratory Medicine and Pathology, [facility] in [place], [place] [address] [place] [phone] Alisa Menjivar M.D. [address] [place] [phone] 11/16/2024 10:30 AM CDT Office Visit Department of Oncology in [place], [place] [address] [place] [phone] Alisa Menjivar M.D. [address] [place] [phone] 11/16/2024 2:30 PM CDT Infusion Department of Oncology in [address] [phone] Alisa Menjivar M.D. [address] [place] [phone] 11/23/2024 8:30 AM CDT Lab Department of Laboratory Medicine and Pathology, [facility], in [address] [phone] Alisa Menjivar M.D. [address] [place] [phone] 11/23/2024 10:30 AM CDT Infusion Department of Oncology in [address] [phone] Alisa Menjivar M.D. [address] [place] [phone] documented as of this encounter Visit Diagnoses Not on filedocumented in this encounter Care Teams Court Orderly Relationship Specialty Start Date End Date Elsewhere, Pcp PCP - General Internal Medicine 10/09/24 documented as of this encounter
--- OUTSIDE RECORDS SUMMARY | 2024-10-24 21:17 | XMS_ITS | Encounter Summary ---
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 [address] [place] [phone] Phone: tel: fax: Elisa Alva M.D. [address] [place] [phone] Phone: tel: fax: Referral ID Status Reason Start Date Expiration Date V isits Requested Visits Authorized [id number] Authorized 10/11/2024 04/12/2026 1 1 Encounter Details Date Type Department Care Team (Late st Contact Info) Description 10/11/2024 Clinical Communication [facility] [address] [place] [phone] Clari Daniel M.D. [address] [place] [phone] Social History Tobacco Use Types Packs/Day Years Used Date Smoking Tobacco: Former Smokeless Tobacco: Never Alcohol Use Standard Drinks/Week Comments Yes 3 (1 standard drink = 0.6 oz pur e alcohol) [facility] Utilities Answer Date Recorded In the [...] your living situation today? I have a [facility] place to live 10/09/2024 Education Answer Date Recorded What is the highest level of school you have completed or the highest degree you have received? 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 [address] [place] [phone] 10/26/2024 1:00 PM CDT Education Department of Oncology in [place], [place] [address] [place] [phone] Polo Dwyer M.D. [address] [place] [phone] 10/26/2024 2:00 PM CDT Infusion Department of Oncology in [place], [place] [address] [place] [phone] Polo Dwyer M.D. [address] [place] [phone] 11/02/2024 12:10 PM CDT Lab Department of Laboratory Medicine and Pathology, [facility] in [place], [place] [address] [place] [phone] Alisa Menjivar M.D. [address] [place] [phone] 11/02/2024 1:00 PM CDT Clinical Support Department of Oncology in [place], [place] [address] [place] [phone] Polo Dwyer M.D. [address] [place] [phone] China Parikh M.S.W., L.I.C.S.W. [address] [place] [phone] 11/02/2024 2:00 PM CDT Infusion Department of Oncology in [place], [place] [address] [place] [phone] Alisa Menjivar M.D. [address] [place] [phone] 11/12/2024 2:15 PM CDT Office Visit Department of Cardiovascular Medicine in [place], [place] [address] [place] [phone] Elisa Alva M.D. [address] [place] [phone] 11/15/2024 3:30 PM CDT Clinical Communication Virtual Review in [place], [place] 200 [place] [address] 11/16/2024 8:30 AM CDT Lab Department of Laboratory Medicine and Pathology, [facility] in [place], [place] [address] [place] [phone] Alisa Menjivar M.D. [address] [place] [phone] 11/16/2024 10:30 AM CDT Office Visit Department of Oncology in [place], [place] [address] [place] [phone] Alisa Menjivar M.D. [address] [place] [phone] 11/16/2024 2:30 PM CDT Infusion Department of Oncology in [place], [place] [address] [place] [phone] Alisa Menjivar M.D. [address] [place] [phone] 11/23/2024 8:30 AM CDT Lab Department of Laboratory Medicine and Pathology, [facility], in [place], [place] [address] [place] [address] lAisa Menjivar M.D. [address] [place] [address] 11/23/2024 10:30 AM CDT Infusion Department of Oncology in [place], [place] [address] [place] [address] Alisa Menjivar M.D. 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
--- OUTSIDE RECORDS SUMMARY | 2024-10-24 21:17 | XMS_ITS | Encounter Summary ---
Author Organization [facility] Address [address] [place] [address] Care Team Providers Care Grade Checker Name Role Phone Elsewhere, Pcp Primary Care Provider Unavailabl e Encounter Details Date Type Department Care Team (Late st Contact Info) Description 10/10/2024 Documentation Department of Urology in [place], [place] [address] [place] [phone] Charla Childress M.D. 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 [address] [place] [phone] 10/26/2024 1:00 PM CDT Education Department of Oncology in [address] [phone] Polo Dwyer M.D. [address] [place] [phone] 10/26/2024 2:00 PM CDT Infusion Department of Oncology in [address] [phone] Polo Dwyer M.D. [address] [place] [phone] 11/02/2024 12:10 PM CDT Lab Department of Laboratory Medicine and Pathology, [place], [place] [address] [place] [phone] Alisa Menjivar M.D. [address] [place] [phone] 11/02/2024 1:00 PM CDT Clinical Support Department of Oncology in [place], [place] [address] [place] [phone] Polo Dwyer M.D. [address] [place] [phone] China Parikh M.S.W., L.I.C.S.W. [address] [place] [phone] 11/02/2024 2:00 PM CDT Infusion Department of Oncology in [place], [place] [address] [place] [phone] Alisa Menjivar M.D. [address] [place] [phone] 11/12/2024 2:15 PM CDT Office Visit Department of Cardiovascular Medicine in [address] [phone] Elisa Alva M.D. [address] [place] [phone] 11/15/2024 3:30 PM CDT Clinical Communication Virtual Review in [place], [place] 200 [place] [address] 11/16/2024 8:30 AM CDT Lab Department of Laboratory Medicine and Pathology, [facility], in [place], [place] [address] [place] [phone] Alisa Menjivar M.D. [address] [place] [phone] 11/16/2024 10:30 AM CDT Office Visit Department of Oncology in [place], [place] [address] [place] [address] Alisa Menjivar M.D. [address] [place] [phone] 11/16/2024 2:30 PM CDT Infusion Department of Oncology in [place], [place] [address] [place] [phone] Alisa Menjivar M.D. [address] [place] [phone] 11/23/2024 8:30 AM CDT Lab Department of Laboratory Medicine and Pathology, [facility] in [place], [place] [address] [place] [address] Alisa Menjivar M.D. [address] [place] [phone] 11/23/2024 10:30 AM CDT Infusion Department of Oncology in [place], [place] [address] [place] [phone] Alisa Menjivar M.D. [address] [place] [phone] documented as of this encounter Visit Diagnoses Not on filedocumented in this encounter Care Teams Grade Checker Relationship Specialty Start Date End Date Elsewhere, Pcp PCP - General Internal Medicine 10/09/24 documented as of this encounter
--- OUTSIDE RECORDS SUMMARY | 2024-10-24 21:19 | XMS_ITS | Encounter Summary ---
Author Organization [facility] Address [address] [place] [id number] Care Team Providers Care Remote Sensing Technologist Name Role Phone Elsewhere, Pcp Primary Care Provider Unavailabl e Encounter Details Date Type Department Care Team (Late st Contact Info) Description 10/11/2024 Orders Only Department of Urology in [place], [place] [address] [place] [phone] Charla Childress M.D. [address] [place] [address] Social History Tobacco Use Types Packs/Day Years Used Date Smoking Tobacco: Former Smokeless Tobacco: Never Alcohol Use Standard Drinks/Week Comments Yes 3 (1 standard drink = 0.6 oz pur e alcohol) [facility] Utilities Answer Date Recorded In the past 12 months has [facility] [employer], gas, oil, or water [employer] threatened to shut off services in your [...] your living situation today? I have a [facility] place to live 10/09/2024 Education Answer Date Recorded What is the highest level of school you have completed or the highest degree you have received? 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 [address] [place] [phone] 10/26/2024 1:00 PM CDT Education Department of Oncology in [place], [place] [address] [place] [address] Polo Dwyer M.D. 200 [place] [phone] 10/26/2024 2:00 PM CDT Infusion Department of Oncology in [place], [place] [address] [place] [phone] Polo Dwyer M.D. [address] [place] [phone] 11/02/2024 12:10 PM CDT Lab Department of Laboratory Medicine and Pathology, [facility] in [place], [place] [address] [place] [phone] Alisa Menjivar M.D. [address] [place] [phone] 11/02/2024 1:00 PM CDT Clinical Support Department of Oncology in [place], [place] [address] [place] [phone] Polo Dwyer M.D. [address] [place] [phone] China Parikh, M.S.W., L.I.C.S.W. [address] [place] [phone] 11/02/2024 2:00 PM CDT Infusion Department of Oncology in [address] [phone] Alisa Menjivar M.D. [address] [place] [phone] 11/12/2024 2:15 PM CDT Office Visit Department of Cardiovascular Medicine in [place], [place] [address] [place] [phone] Elisa Alva M.D. [address] [place] [phone] 11/15/2024 3:30 PM CDT Clinical Communication Virtual Review in [place], [place] [address] [place] [phone] 11/16/2024 8:30 AM CDT Lab Department of Laboratory Medicine and Pathology, [facility] in [place], [place] [address] [place] [phone] Alisa Menjivar M.D. [address] [place] [phone] 11/16/2024 10:30 AM CDT Office Visit Department of Oncology in [place], [place] [address] [place] [phone] Alisa Menjivar M.D. [address] [place] [phone] 11/16/2024 2:30 PM CDT Infusion Department of Oncology in [place], [place] [address] [place] [phone] Alisa Menjivar M.D. [address] [place] [phone] 11/23/2024 8:30 AM CDT Lab Department of Laboratory Medicine and Pathology, [facility], in [place], [place] [address] [place] [phone] Alisa Menjivar M.D. [address] [place] [phone] 11/23/2024 10:30 AM CDT Infusion Department of Oncology in [address] [phone] Alisa Menjivar M.D. [address] [place] [phone] documented as of this encounter Visit Diagnoses Not on filedocumented in this encounter Care Teams Remote Sensing Technologist Relationship Specialty Start Date End Date Elsewhere, Pcp PCP - General Internal Medicine 10/09/24 documented as of this encounter
--- OUTSIDE RECORDS SUMMARY | 2024-10-24 21:20 | XMS_ITS | Clinical Summary ---
Author Organization [facility] Address [address] [address] Care Team Providers Care Tobacco Stripper Name Role Phone Osorio Galvan MD Primary Care Provider [phone] Source Comments You are receiving this document as you are listed as the primary care provider,follow-up provider, or the patient has been referred to you for consultation.This is in compliance with the Medicare and[facility] Cent[facility]aid EHR Incentive Program,which states Providers who transition their patient to another setting of careor provider of care or refers their patient to another provider of care shouldprovide summary care record for each transition of care or referral. 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 We will proceed with medical therapy [...] complete this topic Insurance MEDICARE Care Teams Tobacco Stripper Relationship Specialty Start Date End Date Osorio Galvan [place] [address] PCP - General Family Practice 12/14/21
--- OUTSIDE RECORDS SUMMARY | 2024-10-24 21:20 | XMS_ITS | Clinical Summary ---
Author Organization [facility] Address [address] [place] [address] Care Team Providers Care Business System Manager Name Role Phone Elsewhere, Pcp Primary Care Provider Unavailabl e Source Comments Patient records contain information from all sites at [facility]. For routine questions regarding patient records, call [phone] during business hours, M-F 8:00 AM - 5:00 PM Central Time. 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 We will proceed with medical therapy for chronic stable CAD. Hyperlipidemia 02/28/2012 Encounters * This document contains information received from the source organization and may not represent a complete record from that organization. Date Type Department Care Team Description 10/23/2024 Clinical Communication Department of Oncology in [place], [place] [address] [place] [phone] Alisa Menjivar M.D. Order Request 10/17/2024 1:20 PM CDT Comprehensive Visit Department of Oncology in [place], [place] [address] [place] [phone] Alisa Menjivar M.D. Malignant Neoplasm Of Bladder (HCC) (Primary Dx); Other Halfway Current Drug Therapy; Medication Therapy Fiberglass Fabricator Not Anticoagulant; Halfway Current Drug Therapy, Chemotherapy 10/17/2024 9:21 AM CDT - 10/17/2024 11:59 PM CDT Hospital Encounter Department of Laboratory Medicine and Pathology, [facility], in [place], [place] [address] [place] [phone] Shyam Musa M.D. Mass Bladder Discharge Disposition: Home or Self Care 10/17/2024 8:30 AM CDT Comprehensive Visit Department of Urology in [place], [place] [address] [place] [phone] Pema Rojas M.D. Malignant Neoplasm Of Bladder (HCC) (Primary Dx) 10/13/2024 Documentation Department of Urology in [place], [place] [address] [place] [phone] Charla Childress M.D. 10/13/2024 Orders Only Department of Urology in [place], [place] [address] [place] [phone] Charla Childress M.D. 10/11/2024 Orders Only Department of Urology in [place], [place] [address] [place] [phone] Charla Childress M.D. 10/11/2024 Clinical Communication [facility] [address] [place] [phone] Clari Daniel M.D. 10/10/2024 10:25 PM CDT Ancillary Procedure Department of Cardiology 10/10/2024 1:26 PM CDT - 10/10/2024 2:41 PM CDT Surgery Division of Cardiovascular Diseases in [place], [place] [address] [place] [phone] Grey Gomez M.D. CORONARY ANGIOGRAPHY 10/10/2024 Documentation Department of Urology in [place], [place] [address] [place] [phone] Charla Childress M.D. 10/09/2024 5:00 PM CDT - 10/12/2024 4:06 PM CDT Hospital Encounter [facility], [facility], Fifth Floor [address] [place] [phone] Zuri Harvey PTee.-Shayna., M.S. Spencer Marroquin M.D. Terry Oliveira M.D., Ph.D. Iva Ascencio M.D., Ph.D. Angina Unstable (HCC) (Primary Dx); Pain Chest; Decline Functional Status [R53.81]; Malaise [R53.81] Discharge Disposition: Home or Self Care 10/09/2024 4:15 PM CDT Office Visit Department of Cardiovascular Medicine in [place], [place] [address] [place] [phone] Elisa Alva M.D. Preoperative Exam (Primary Dx); Preoperative Examination Cardiovascular; Hyperlipidemia; Embolus Pulmonary Personal History; Preanesthetic Medical Exam; Angina Unstable (HCC) 10/09/2024 7:13 AM CDT - 10/09/2024 4:59 PM CDT Hospital Encounter Department of Radiology, [facility], in [place], [place] [address] [place] [phone] Ab Shbaazz MPAS, P.A.-C., M.S. Discharge Disposition: Home or Self Care 10/09/2024 7:13 AM CDT - 10/09/2024 4:59 PM CDT Hospital Encounter Department of Cardiovascular Diseases in [place], [place] [address] [place] [phone] Ab Shabazz MPAS, P.A.-C., M.S. Discharge Disposition: Home or Self Care 10/09/2024 7:00 AM CDT - 10/09/2024 7:12 AM CDT Hospital Encounter Department of Radiology, [facility], in [place], [place] [address] [place] [phone] Ab Shabazz MPAS, P.A.-C., M.S. Pain Chest Discharge Disposition: Home or Self Care 10/09/2024 Clinical Communication Department of Urology in [address] [phone] Braulio Martins OPC PROC 10/02/2024 Orders Only Department of Urology in [address] [phone] Charla Childress M.D. Mass Bladder (Primary Dx) 10/02/2024 Results Follow-Up Department of Urology in [address] [phone] Charla Childress M.D. Bacterial Culture, Aerobic + Susceptibility, Urine, Urinalysis, with Microscopic: Urine, Midstream, Osmolality, Urine, Additional followed-up results: 3 10/01/2024 2:30 PM CDT - 10/01/2024 11:59 PM CDT Hospital Encounter Department of Radiology, [facility], in [place], [place] [address] [place] [phone] Shyam Musa M.D. Mass Bladder Discharge Disposition: Home or Self Care 10/01/2024 11:00 AM CDT Comprehensive Visit Preoperative Evaluation Center in [place], [place] [address] [place] [phone] Shyam Musa M.D. Hebl, James R, M.D. 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 Mass Bladder; Hematuria Discharge Disposition: Home or Self Care 10/01/2024 Clinical Communication Department of Cardiovascular Medicine in [address] [phone] SupervisorMarco Antonio M.D. Triage (Dia, Anesthesia Preop # [id number]) 09/27/2024 3:15 PM CDT Clinical Communication Virtual Review in [address] [phone] 09/05/2024 Orders Only Preoperative Evaluation Center in [address] [phone] Chintan Stevens APRN, C.N.P., M.S.N. Preanesthetic Medical Exam (Primary Dx) 09/04/2024 10:00 AM CDT Telemedicine Department of Urology in [address] [phone] Callum Marcos M.D. Mass Bladder (Primary Dx); Hematuria 09/03/2024 2:30 PM CDT Procedure visit Department of Urology in [address] [phone] Shyam Musa M.D. Schaffer, Heidi L, APRN, C.N.P., D.N.P. Hematuria 09/03/2024 9:39 AM CDT - 09/03/2024 11:59 PM CDT Hospital Encounter Department of Radiology, [facility], in [place], [place] [address] [place] [phone] Shyam Musa M.D. Hematuria Discharge Disposition: Home or Self Care 08/21/2024 Orders Only Department of Urology in [place], [place] [address] [place] [phone] Shyam Musa M.D. 08/16/2024 10:30 AM CDT Lab Department of Urology in [place], [place] [address] [place] [phone] Shyam Musa M.D. Dudley, Kathleen A, R.N. Hematuria 08/16/2024 9:30 AM CDT Comprehensive Visit Department of Urology in [place], [place] [address] [place] [phone] Callum Marcos M.D. Hematuria (Primary Dx) 08/16/2024 7:30 AM CDT Lab Department of Urology in [place], [place] [address] [place] [phone] Callum Marcos M.D. McKay, Roxane M, L.P.N. Retention Urinary (Primary Dx) 08/14/2024 Orders Only Department of Urology in [place], [place] [address] [place] [phone] [facility], Provider, Retention Urinary from Last 3 Months Immunizations Immunization Administration Dates Next Due Influenza, Unspecified 01/02/2013 Social History Tobacco Use Types Packs/Day Years Used Date Smoking Tobacco: Former Smokeless Tobacco: Never Alcohol Use Standard Drinks/Week Comments Yes 3 (1 standard drink = 0.6 oz pur e alcohol) [facility] Utilities Answer Date Recorded In the past 12 months has e [employer], gas, oil, or water [employer] threatened to shut off services in your [...] living situation today? I have a [facility] place to live 10/09/2024 Education Answer Date Recorded What is the highest level of school you have completed or the highest degree you have received? 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 [address] [place] [phone] 10/26/2024 1:00 PM CDT Education Department of Oncology in [place], [place] [address] [place] [phone] Polo Dwyer M.D. [address] [place] [phone] 10/26/2024 2:00 PM CDT Infusion Department of Oncology in [place], [place] [address] [place] [phone] Polo Dwyer M.D. [address] [place] [phone] 11/02/2024 12:10 PM CDT Lab Department of Laboratory Medicine and Pathology, [facility], in [place], [place] [address] [place] [phone] Alisa Menjivar M.D. [address] [place] [phone] 11/02/2024 1:00 PM CDT Clinical Support Department of Oncology in [place], [place] [address] [place] [phone] Polo Dwyer M.D. [address] [place] [phone] China Parikh M.S.W., L.I.C.S.W. [address] [place] [phone] 11/02/2024 2:00 PM CDT Infusion Department of Oncology in [place], [place] [address] [place] [phone] Alisa Menjivar M.D. [address] [place] [phone] 11/12/2024 2:15 PM CDT Office Visit Department of Cardiovascular Medicine in [address] [phone] Elisa Alva M.D. [address] [place] [phone] 11/15/2024 3:30 PM CDT Clinical Communication Virtual Review in [place], [place] 200 [place] [address] 11/16/2024 8:30 AM CDT Lab Department of Laboratory Medicine and Pathology, [facility] in [address] [phone] Alisa Menjivar M.D. [address] [place] [phone] 11/16/2024 10:30 AM CDT Office Visit Department of Oncology in [address] [phone] Alisa Menjivar M.D. [address] [place] [phone] 11/16/2024 2:30 PM CDT Infusion Department of Oncology in [address] [phone] Alisa Menjivar M.D. [address] [place] [phone] 11/23/2024 8:30 AM CDT Lab Department of Laboratory Medicine and Pathology, [facility], in [place], [place] [address] [place] [address] Alisa Menjivar M.D. [address] [place] [phone] 11/23/2024 10:30 AM CDT Infusion Department of Oncology in [place], [place] [address] [place] [address] Alisa Menjivar M.D. [address] [place] [phone] Health Maintenance Due Date Last Done Comments [...] 10/01/2024 12:06 PM CDT Preanesthetic Medical Exam NV CYSTOURETHROSCOPY Routine 09/03/2024 2:[address] UROGRAM WITHOUT AND WITH IV CONTRAST RAD - Routine (most inpatients and all outpatients) 09/03/2024 10:50 AM CDT Hematuria CYTOLOGY NON-VOTING MACHINE REPAIRER (SCHEDULED) Routine 08/16/2024 11:27 AM CDT Hematuria DIPSTICK, U Routine 08/16/2024 8:04 AM CDT NV OSMOLALITY ASSAY URINE Routine 08/16/2024 8:04 AM CDT PH, RANDOM, U Routine 08/16/2024 8:04 AM CDT MICROSCOPIC MANUAL Routine 08/16/2024 8: 04 AM CDT URINALYSIS WITH MICROSCOPIC Routine 08/16/2024 8:04 AM CDT Retention Urinary OUTSIDE CT BODY Routine 08/12/2024 12:[address] ABDOMEN PELVIS WITH IV CONTRAST RAD - Semiurgent (Fast; most ED patients; some inpatients) 04/11/2020 9:32 PM FELT CARBONIZER from Last 3 Months or Most Recently [...] Musa M.D. LAB BLOOD ADD-ON Final Result [facility] [address] DTL [facility] [address] [place] [address] * (ABNORMAL) Comprehensive Metabolic Panel (10/17/2024 9:48 AM CDT) [facility] Potassium, S 4.9 3.6 - 5.2 mmol/L [...] Musa M.D. LAB BLOOD ADD-ON Final Result [facility] [address] [place] [address], [facility] [address] [place] [address] * (ABNORMAL) Renal Function Panel (10/12/2024 1:08 [...] M.D. LAB BLOOD ADD-ON Final Res ult [facility] [address] [place] [address], [facility] [address] [place] [address] * (ABNORMAL) CBC without Differential (10/12/2024 1:08 [...] M.D. LAB BLOOD ADD-ON Final Res ult [address] [address], [facility] [address] [place] [address] * CT Lymph Node Biopsy (10/11/2024 12:52 [...] series 302, image 166. A total of [id number] cores were obtained from the lymph node [...] Patient seen, evaluated, history reviewed, and [facility] Airway, heart, and lung exam satisfactory for [...] series 302, image 166. A total of [id number] cores were obtained from the lymph node [...] features. Immunohistochemic al stains were performed at [facility] (block A1). 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 Digital imaging was used in the diagnostic assessment of this case. (A) 10/15/2024 12:58 PM CDT DTL Tissue (Pelvis, Left) 10/11/2024 11:32 AM CDT us Mila Burgess M.D. LAB SURG PATH ORDERABLES F inal Result Performing Organization Address City/[facility]/ZIP Co de Phone Number [facility] [address] [place] [address], [facility] DTL [address] [place] [address] * Specimen-Cardiology Encounter Image Exam (10/10/2024 10:25 [...] NON RAD IMAGING PROCE DURES Final Result Performing Organization Address [facility] Co de Phone Number IIMS NA * CORONARY ANGIOGRAPHY (10/10/2024 4:18 PM CDT) Anatomical Region Laterality Modality X-Ray Angiograph y 10/10/2024 3:43 PM CDT Narrative 10/10/2024 4:58 PM CDT For the complete report, see the Order-Level Documents. PROCEDURE TYPES 1. CORONARY ANGIOGRAPHY FINAL DIAGNOSIS 1. Severe coronary artery atherosclerosis 2. SHROUD LINE TIER (Chronic Total Occlusion) 3. Coronary artery collateral [...] disease as well. There is an RCA SHROUD LINE TIER with good left to right collaterals. Discussed [...] left anterior descending artery and second septal career development coordinator. The right posterolateral segment is 99% obstructed [...] DIAGNOSIS 1. Severe coronary artery atherosclerosis 2. SHROUD LINE TIER (Chronic Total Occlusion) 3. Coronary artery collateral [...] There was an iliacstenosis overcome using a [employer] wire, and the 5 Fr catheters easilytraversed the stenosis. We then performed the angiogram outline below.Briefly, mild LM, severe mid LAD disease (diffuse moderate proximal LADdisease), hazy severe ostial ramus lesion, and likely proximal LCx diseaseas well. There is an RCA SHROUD LINE TIER with good left to right collaterals.Discussed with [...] distal left anterior descendingartery and second septal career development coordinator. The right posterolateral segment is 99% obstructed [...] M.D. LAB URINE ORDERABLES Final Resu lt [facility] [address] [place] [address], [facility] [address] [place] [address] * (ABNORMAL) Microscopic Manual (10/10/2024 5:41 AM [...] URINE ORDERABLES Final Resu Performing Organization Address City/[facility]/ZIP Co de Phone Number [facility] [address] [place] [address], [place] [address] * pH, Urine (10/10/2024 5:41 AM CDT) Only the most recent of2 resultswithin the time period is included. pH, U 5.8 4.5 - 8.0 10/10/2024 6:1 9 AM CDT DT Urine 10/10/2024 5:41 AM CDT 10/10/2024 5:58 AM CDT Mario Musa M.D. LAB URINE ORDERABLES Final Resu [facility] [address] [place] [address], [place] [address] * Osmolality, Urine (10/10/2024 5:41 AM CDT) Only the most recent of2 resultswithin the time period is included. Osmolality, U 215 150 - 1150 mOsm/kg 10/10/2024 6:19 AM CDT DTL Urine 10/10/2024 5:41 AM CDT 10/10/2024 5:58 AM CDT Mario Musa M.D. LAB URINE ORDERABLES Final Resu lt Performing Organization Address City/[facility] Co de Phone Number [facility] [address] [place] [address], [facility] [address] [place] [address] * (ABNORMAL) Urinalysis, with Microscopic: Urine, Catheter [...] URINE ORDERABLES Final Result Performing Organization Address City/[facility]/ZIP Co de Phone Number [facility] 200 [place] [address], [facility] 200 [place] [address] * ECG 12 Lead (10/10/2024 4:13 AM CDT) Only the most recent of6 resultswithin the time period is included. Ventricular Rate ECG/Min 58 BPM MUSE NV Interval 168 ms MUSE QRSD Interval 76 ms MUSE QT Interval 418 ms MUSE QTC Interval 410 ms MUSE P [place] 79 degrees MUSE R [place] 24 degrees MUSE T Wave [place] 17 degrees MUSE 10/10/2024 4:13 AM CDT [...] and management can be found on the [employer] site. Link [email or web address] Procedure Note Judy Ibrahim M.D. - 10/10/2024 [...] thrombosis and management can be found on theRepligen site. [email or web address] IMPRESSION: 1. Negative for acute DVT in [...] ADD-ON Final Res ult Performing Organization Address City/[facility] Co de Phone Number [facility] [address] [place] [address], [facility] [address] [place] [address] * Type and Screen (with Reflex Antibody ID) (10/09/2024 11:25 PM CDT) [facility] ABORh O Neg Not applicable 10/10/2024 1:17 AM CDT STRM Antibody Screen Negative Negative 10/10/2024 1:30 AM CDT STRM Type & Screen Expiration 10/12/2024 23:59 10/10/2024 1:17 AM CDT STRM Testing Location [place] DEFAULT 10/10/2024 12:50 AM CDT STRM Blood (Blood, Venous) 10/09/2024 11:25 PM CDT 10/10/2024 12:50 AM CDT Mila Burgess M.D. LAB BLOOD BANK TEST ORDERA BLES Final Result Performing Organization Address [facility] de Phone Number [facility] [address] [place] [address], [facility] STRM [facility] [address] [place] [address] * (ABNORMAL) Troponin T, 2 Hour with 6 Hour Reflex, 5th Gen (10/09/2024 7:33 PM CDT) [facility] Troponin T, 2 hr, 5th gen 31(H) <=15 ng/L 10/09/2024 8:00 PM CDT STMA 2H Delta -2 ng/L 10/09/2024 8:00 PM CDT [facility] Comment:6 hour collection no t indicated. 2H Delta Interp Not Changing 10/09/2024 8:00 PM CDT [facility] Blood 10/09/2024 7:33 PM CDT 10/09/2024 7:38 PM CDT Zuri Harvey P.A.-C., M.S. LAB BLOOD TROPONIN Fi nal Result [facility] [address] [place] [address], [facility] [address] [place] [address] * DX Chest AP or PA and [...] TROPONIN Fi nal Result Performing Organization Address City/[facility] Co de Phone Number [facility] [address] [place] [address] * APTT (Activated Partial Thromboplastin Time) (10/09/2024 5:25 PM CDT) Pathologist [facility] Activated Partial Thrombopl Time, P 28 25 - 37 sec 10/09/2024 5:41 PM CDT [facility] Blood (Blood, Venous) 10/09/2024 5:25 PM CDT 10/09/2024 5:31 PM CDT us Zuri Harvey P.A.-C., M.S. LAB BLOOD ADD-ON Gabriella l Result Performing Organization Address [facility] Co de Phone Number [facility] [address] [place] [address] * Prothrombin Time (PT) (10/09/2024 5:25 PM CDT) Pathologist [facility] Prothrombin Time, P 12.4 9.4 - 12.5 [...] M.S. LAB BLOOD ADD-ON Gabriella l Result [facility] [address] [place] [address], [facility] STMA [facility] [address] [place] [address] * (ABNORMAL) Basic Metabolic Panel (10/09/2024 5:25 PM CDT) Pathologist [facility] Potassium, P 4.8 3.6 - 5.2 mmol/L [...] M.S. LAB BLOOD ADD-ON Gabriella l Result [facility] [address] [place] [address], [facility] STMA [facility] [address] [place] [address] * NM Cardiac Perfusion Rest and Stress SPECT (10/09/2024 8:57 AM CDT) 10/09/2024 7:13 AM CDT Narrative [facility] - 10/09/2024 10:42 AM CDT See PDF For Result Procedure Note Taina Galloway M.D. - 10/09/2024 See PDF For Result Ab ABBOTT P.A.-C., M.S. IMG NM PROCE DURES Final Result Performing Organization Address City/[facility]/ZIP Co de Phone Number [facility] NA * CT Chest without IV Contrast [...] MICROBIOLOGY - GENERAL OR DERABLES Final Result [facility] [address] [place] [address], [facility] DTL [facility] [address] [place] [address] * NV CYSTOURETHROSCOPY (09/03/2024 2:30 PM CDT) Narrative Es Caballero APRN, C.N.P., D.N.P. - 09/03/2024 2:30 PM CDT Es Caballero APRN, C.N.PMak, D.N.P. 09/03/2024 3:01 PM URO Cystoscopy (general) Performed by: Es Caballero APRN C.N.PMak, Meño.N.P. Authorized by: Shyam Musa M.D. Care team members present 1. Es Caballero APRN, C.N.P., D.N.P. IMPRESSION suspicious mass and hematuria Additional procedures [...] the right anterolateral pelvic side wall (series [id number] image 342). Bryant catheter. Retroperitoneal and bilateral [...] site in the right ilium. Procedure Note eY Gunter M.D. - 09/03/2024 EXAM: CT UROGRAM [...] abuts the rightanterolateral pelvic side wall (series [id number] image 342). Foleycatheter. Retroperitoneal and bilateral pelvic [...] PROCEDURES Final Resul t * (ABNORMAL) Cytology Non-VOTING MACHINE REPAIRER (Scheduled) (08/16/2024 11:27 AM CDT) (A) [...] LAB SURG PATH ORDERABLES Gabriella l Result [facility] [address] [place], [place] [address] [place] [address] DT 200 [facility] 200 [place] [address] * Osmolality, Urine (08/16/2024 8:04 AM CDT) Osmolality, U 539 150 - 1150 mOsm/kg 08/16/2024 9:25 AM CDT DT Urine 08/16/2024 8:04 AM CDT 08/16/2024 8:56 AM CDT us Soft Results Interface LAB URINE ORDERABLES Gabriella l Result Performing Organization Address [facility]/ZIP Co de Phone Number [facility] [address] 200 [place] [address] * pH, Random, Urine (08/16/2024 8:04 AM CDT) pH, Random, U 5.2 4.5 - 8.0 08/16/2024 9:25 AM CDT DT Urine 08/16/2024 8:04 AM CDT 08/16/2024 8:56 AM CDT us Soft Results Interface LAB URINE ORDERABLES Gabriella l Result Performing Organization Address [facility] Co de Phone Number [facility] 200 [place] [address] * Outside CT Body (08/12/2024 12:45 PM [...] System IMG CT PROCEDURES Final R esult Performing Organization Address [facility]/State/ZIP Co de Phone Number [facility] NA * CT Abdomen Pelvis with IV Contrast (04/11/2020 9:32 PM FELT CARBONIZER) Anatomical Region Laterality Modality Abdomen, Pelvis, Abdominal R ST LOS, Abdominal ARZ LOS, Abdominal FLA LOS N/A Computed Tomograp hy, Computed Tomography 04/11/2020 9:41 PM FELT CARBONIZER Impressions 04/11/2020 10:07 PM FELT CARBONIZER 1. No evidence of recent or active hemorrhage within the abdomen or pelvis. 2. Bladder wall thickening and adjacent stranding and mild ureterectasis and periureteral stranding of the lower ureters is nonspecific but can be seen in the setting of cystitis with early ascending infection. 3. Acute pulmonary embolism in the left lower lobe. Narrative 04/11/2020 10:07 PM FELT CARBONIZER EXAM: CT ABDOMEN PELVIS WITH IV CONTRAST [...] lung. Findings were discussed with Dr. Fritz ([phone]) at 10:06 PM on 04/11/2020.. Procedure Note [...] lowerlung. Findings were discussed with Dr. Fritz ([phone]) at 10:06 PM on04/11/2020.. IMPRESSION: 1. No evidence of recent or active hemorrhage within the abdomen orpelvis. 2. Bladder wall thickening and adjacent stranding and mild ureterectasisand periureteral stranding of the lower ureters is nonspecific but can be seenin the setting of cystitis with early ascending infection. 3. Acute pulmonary embolism in the left lower lobe. us Braulio Regan M.D., M.P.H. IMG CT PROCEDURES F inal Result from Last 3 Months or Most Recently Relevant to Health Maintenance Insurance MEDICARE [facility] Advance Directives For more information, please contact: [phone] * Full Code (Latest Code Status on File) Date Activated Date Inactivated Comments 10/09/2024 9:06 PM 10/12/2024 6:11 PM Question Answer Comments Full Code: Discussed * Full Code Date Activated Date Inactivated Comments 04/12/2020 1:07 PM 04/15/2020 6:07 PM Question Answer Comments Full Code: Discussed 04/12/2020 Care Teams Business System Manager Relationship Specialty Start Date End Date Elsewhere, Pcp PCP - General Internal Medicine 10/09/24
--- OUTSIDE RECORDS SUMMARY | 2024-10-24 21:20 | XMS_ITS | Encounter Summary ---
Author Organization [facility] Address [address] [place] [address] Care Team Providers Care Material Mixer Name Role Phone Elsewhere, Pcp Primary Care Provider Unavailabl e Encounter Details Date Type Department Care Team (Late st Contact Info) Description 08/14/2024 Orders Only Department of Urology in [place], [place] [address] [place] [address] [facility], Provider, MD Hurtado Urinary Social History Tobacco [...] degree (e.g., MA, MS, Mani, MEd, TECHNICAL WRITER AND EDITOR, BERTA) 05/11/2020 Sex and Gender Information Value Date Recorded Sex Assigned at Male 09/04/2024 9:32 AM CDT 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 [address] [place] [phone] 10/26/2024 1:00 PM CDT Education Department of Oncology in [place], [place] [address] [place] [phone] Polo Dwyer M.D. [address] [place] [phone] 10/26/2024 2:00 PM CDT Infusion Department of Oncology in [place], [place] [address] [place] [phone] Polo Dwyer M.D. [address] [place] [phone] 11/02/2024 12:10 PM CDT Lab Department of Laboratory Medicine and Pathology, [facility], in [place], [place] [address] [place] [phone] Alisa Menjivar M.D. [address] [place] [phone] 11/02/2024 1:00 PM CDT Clinical Support Department of Oncology in [place], [place] [address] [place] [phone] Polo Dwyer M.D. [address] [place] [phone] China Parikh M.S.W., OsminS.W. [address] [place] [phone] 11/02/2024 2:00 PM CDT Infusion Department of Oncology in [place], [place] [address] [place] [phone] Alisa Menjivar M.D. [address] [place] [phone] 11/12/2024 2:15 PM CDT Office Visit Department of Cardiovascular Medicine in [address] [phone] Elisa Alva M.D. [address] [place] [phone] 11/15/2024 3:30 PM CDT Clinical Communication Virtual Review in [place], [place] 200 [place] [address] 11/16/2024 8:30 AM CDT Lab Department of Laboratory Medicine and Pathology, [facility], in [address] [phone] Alisa Menjivar M.D. [address] [place] [phone] 11/16/2024 10:30 AM CDT Office Visit Department of Oncology in [address] [phone] Alisa Menjivar M.D. [address] [place] [phone] 11/16/2024 2:30 PM CDT Infusion Department of Oncology in [address] [phone] Alisa Menjivar M.D. [address] [place] [phone] 11/23/2024 8:30 AM CDT Lab Department of Laboratory Medicine and Pathology, [facility], in [place], [place] [address] [place] [address] Alisa Menjivar M.D. [address] [place] [address] 11/23/2024 10:30 AM CDT Infusion Department of Oncology in [place], [place] [address] [place] [address] Alisa Menjivar M.D. [address] [place] [phone] documented as of this encounter Results * [...] 08/16/2024 10:57 AM CDT DTL Predicted Range 3023-30254 mg/24 h 08/16/2024 10:57 AM CDT DTL Comment Micro done on <2.5 mL 08/16/2024 9:24 AM CDT DTL Urine (Urine, Indwelling Catheter) 08/16/2024 8:04 AM CDT 08/16/2024 8:56 AM CDT us Callum Marcos M.D. LAB URINE ORDERABLES Final Result [facility] [address] [place] [address], [facility] [address] [place] [address] documented in this encounter Visit Diagnoses Diagnosis Retention Urinary documented in this encounter Care Teams Material Mixer Relationship Specialty Start Date End Date Elsewhere, Pcp PCP - General Internal Medicine 10/09/24 documented as of this encounter
--- OUTSIDE RECORDS SUMMARY | 2024-10-24 21:21 | XMS_ITS ---
Author Organization [facility] Address [address] [place] [address] Care Team Providers Care Solar Business Developer Name Role Phone Elsewhere, Pcp Primary Care Provider Unavailabl e Active Problems * This document contains information received from the source organization and may not represent a complete record from that organization. 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 We will proceed with medical therapy for chronic stable CAD. Hyperlipidemia 02/28/2012 Current Treatment and Therapy Plans Enfortumab vedotin-ejfv / Pembrolizumab* Plan Start Date:10/16/2024 Plan Provider:Polo Dwyer M.D. Linked Problems Malignant Neoplasm Of Blae r (HCC)Medication Therapy Chcf Not AnticoagulantLong Term Current Drug Therapy, Chemotherapy [...]
--- OUTSIDE RECORDS SUMMARY | 2024-10-24 21:22 | XMS_ITS | Patient Health Record ---
Author Organization [facility] Address [address] [place] [address] Care Team Providers Care Fur Trimming Machine Operator Name Role Phone Osorio Galvan Primary Care Provider PEGGY Sainz Unavailable [phone] Reason For Referral No Information Social History Tobacco Use: Social History Observation Description Date Details (start date - stop date) Former Smoker NA - NA Social History Tobacco Use: Social Info Question Answer Notes Tobacco use/smoking Are you a former smoker Problems Problem Type SNOMED Code ICD Code Onset Dates Problem Status W/U Status Risk Notes Problem Hoarseness (55336216) Hoarseness (R49.0) Active confirmed Problem Dysphagia (48471878) Dysphagia (R13.10) Active confirmed Plan Of Treatment No Information Insurance Providers Payer Name Payer Address Payer Phone Subscriber Number Group Number Insured Name Patient Relationship to Insured Coverage Start Date Coverage End Date MEDICARE [address] [place] [address] [id number] Hernandez Samayoa Self - patient is the insured [facility] Supplementa l [address] [place], [place] [id number] Hernandez Samayoa Self - patient is the insured Medical (General) History Medical History History ICD Code sleep apnea Surgical History Surgery Date(Month/Year) throat/ epiglotis back
[2024-10-24] MEDS: lidocaine HCL 2 % JELLY (TOP) STERILE 6 ML UR (21:37)
== END 2024-10-24 23:28 | disposition home or self-care (01) ==
PROVIDERS: Emergency Provider Family Medicine; PCP Family Medicine
DX: N45.3 Epididymo-orchitis (principal); T83.031A Leakage of indwelling urethral catheter, initial encounter
CPT/HCPCS: 51702; 76870; 93976; 99283; 99284

== ENCOUNTER 2024-11-11 11:12 | Emergency (ER) | payer MEDICARE, SELFPAY ==
--- OUTSIDE RECORDS SUMMARY | 2024-09-27 15:15 | XMS_ITS | Encounter Summary ---
Author Organization [facility] Address [address] [place] [phone] Care Team Providers Care Senior Java Web Developer Name Role Phone Elsewhere, Pcp Primary Care Provider Unavailabl e Encounter Details Date Type Department Care Team (Latest Contact Info) Description 09/27/2024 3:15 PM CDT Clinical Communication Virtual Review in [place], [place] [address] [place] [address] Social History Tobacco Use Types Packs/Day Years Used Date Smoking Tobacco: Former Smokeless Tobacco: Never Alcohol Use Standard Drinks/Week Comments Yes 6 (1 standard drink = 0.6 oz pur e alcohol) [facility] Utilities Answer Date Recorded In the [...] your living situation today? I have a [facility] place to live 09/04/2024 Education Answer Date Recorded What is the highest level of school you have completed or the highest degree you have received? 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 [address] [place] [phone] Discharge Disposition: Home or Self Care 11/12/2024 2:15 PM CDT Office Visit Department of Cardiovascular Medicine in [address] [phone] Elisa Alva M.D. [address] [place] [phone] 11/19/2024 1:00 PM CDT Clinical Communication Virtual Review in [address] [phone] 11/20/2024 8:00 AM CDT Clinical Support Department of Oncology in [address] [phone] Polo Dwyer M.D. [address] [place] [phone] China Parikh M.S.W., L.I.C.S.W. [address] [place] [phone] 11/20/2024 10:50 AM CDT Lab Department of Laboratory Medicine and Pathology, [facility] in [place], [place] [address] [place] [phone] Alisa Menjivar M.D. [address] [place] [phone] 11/20/2024 1:30 PM CDT Office Visit Department of Oncology in [address] [phone] Alisa Menjivar M.D. [address] [place] [phone] 11/20/2024 3:00 PM CDT Infusion Department of Oncology in [address] [phone] Alisa Menjivar M.D. [address] [place] [phone] 11/27/2024 7:30 AM CDT Lab Department of Laboratory Medicine and Pathology, [facility], in [address] [phone] Alisa Menjivar M.D. [address] [place] [phone] 11/27/2024 9:30 AM CDT Infusion Department of Oncology in [address] [phone] Alisa Menjivar M.D. [address] [place] [phone] documented as of this encounter Visit Diagnoses Not on filedocumented in this encounter Care Teams Senior Java Web Developer Relationship Specialty Start Date End Date Elsewhere, Pcp PCP - General Internal Medicine 09/27/24 10/08/24 documented as of this encounter
--- OUTSIDE RECORDS SUMMARY | 2024-10-01 10:00 | XMS_ITS | Encounter Summary ---
Author Organization [facility] Address [address] [place] [address] Care Team Providers Care Second Operator Name Role Phone Elsewhere, Pcp Primary Care Provider Unavailabl e Encounter Details Date Type Department Care Team (Latest Contact Info) Description 10/01/2024 10:00 AM CDT - 10/01/2024 2:29 PM CDT Hospital Encounter Department of Laboratory Medicine and Pathology, [facility] [place] in [place], [place] [address] [place] [address] Shyam Musa M.D. [address] [place] [address] Mass Bladder; Hematuria Discharge Disposition: Home or Self Care Social History Tobacco Use Types Packs/Day Years Used Date Smoking Tobacco: Former Smokeless Tobacco: Never Alcohol Use Standard Drinks/Week Comments Yes 6 (1 standard drink = 0.6 oz pur e alcohol) [facility] Utilities Answer Date Recorded In the past 12 months has [employer], gas, oil, or water company threatened [...] your living situation today? I have a [facility] place to live 09/04/2024 Education Answer Date Recorded What is the highest level of school you have completed or the highest degree you have received? 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 90 tablet 3 07/15/2020 cyanocobalamin (Vitamin B-12) 1,000 mcg/mL injection Inject 1,000 mcg intramuscularly every 30 (thirty) days. 07/05/2024 08/14/19 26 finasteride (PROSCAR) 5 mg tablet Take 1 tablet (5 mg total) by mouth daily. 30 tablet 04/16/2020 metoprolol succinate (TOPROL-XL) 25 mg 24 hr tablet Take 25 mg by mouth daily. 01/28/2020 nitroglycerin (NITROSTAT) 0.[address] 0.4 mg under the tongue every 5 (five) minutes as needed for chest pain (Max 3 doses). If no relief 5 minutes after the 1st dose, seek medical attention immediately. May take up to 2 additional doses if needed. 03/19/2020 rosuvastatin (CRESTOR) 20 mg tablet Take 20 mg by mouth at bedtime. 03/19/2020 apixaban (ELIQUIS) 2.5 mg tablet Take 2.5 mg by mouth. 04/30/2020 10/10/19 25 cholecalciferol , vitamin D3, 25 mcg (1,000 Unit) tablet Take 1,000 Units by mouth daily. 07/22/2016 10/10/19 25 ferrous sulfate 325 mg (65 mg iron) DR tablet Take 325 mg by mouth daily. 04/02/2020 10/10/19 25 pyridoxine, vitamin B6, (VITAMIN B6) 25 mg tablet Take 25 mg by mouth daily. 01/16/2020 10/10/19 25 sennosides (SENOKOT) 8.6 mg tablet Take 8.6 mg by mouth. 08/05/2020 10/10/19 25 sennosides-docu sate sodium (SENOKOT-S) 8.6-50 mg per tablet Take 1 tablet by mouth 2 (two) times a day. 04/15/2020 10/10/19 25 valACYclovir (VALTREX) 1000 mg tablet Take 1 g by mouth as needed. 08/08/2019 10/10/19 25 VITAMIN B COMPLEX ORAL Take 1 tablet by mouth. 08/05/2020 10/10/19 25 zinc chelated 50 mg tablet tablet Take 50 mg by mouth daily. 01/16/2020 10/10/19 25 documented as of this encounter Plan of Treatment Upcoming Encounters Date Type Department Care Team (Late st Contact Info) Description 11/12/2024 9:30 AM CDT Appointment Department of Radiology, [facility], in [place], [place] [address] [place] [phone] Alisa Menjivar M.D. [address] [place] [phone] Discharge Disposition: Home or Self Care 11/12/2024 2:15 PM CDT Office Visit Department of Cardiovascular Medicine in [place], [place] [address] [place] [phone] Elisa Alva M.D. [address] [place] [phone] 11/19/2024 1:00 PM CDT Clinical Communication Virtual Review in [place], [place] 200 [place] [phone] 11/20/2024 8:00 AM CDT Clinical Support Department of Oncology in [place], [place] [address] [place] [phone] Polo Dwyer M.D. [address] [place] [phone] China Parikh M.S.Onur., L.I.C.S.W. [address] [place] [phone] 11/20/2024 10:50 AM CDT Lab Department of Laboratory Medicine and Pathology, [facility] in [place], [place] [address] [place] [phone] Alisa Menjivar M.D. [address] [place] [phone] 11/20/2024 1:30 PM CDT Office Visit Department of Oncology in [place], [place] [address] [place] [phone] Alisa Menjivar M.D. [address] [place] [phone] 11/20/2024 3:00 PM CDT Infusion Department of Oncology in [address] [phone] Alisa Menjivar M.D. [address] [place] [phone] 11/27/2024 7:30 AM CDT Lab Department of Laboratory Medicine and Pathology, [facility], in [place], [place] [address] [place] [phone] Alisa Menjivar M.D. [address] [place] [phone] 11/27/2024 9:30 AM CDT Infusion Department of Oncology in [place], [place] [address] [place] [address] Alisa Menjivar M.D. [address] [place] [phone] documented as of this encounter Procedures Procedure Name Priority Date/Time Associated Diagnosis Comments DIPSTICK, U Routine 10/01/2024 1:14 PM CDT MICROSCOPIC MANUAL Routine 10/01/2024 1: 14 PM CDT BACTERIAL CULTURE, AEROBIC + SUSC, URINE Routine 10/01/2024 1:14 PM CDT Mass Bladder Hematuria PH, U Routine 10/01/2024 1:14 PM CDT OSMOLALITY, U Routine 10/01/2024 1:14 PM CDT URINALYSIS WITH MICROSCOPIC Routine 10/01/2024 1:14 PM CDT Mass Bladder documented in this encounter Results * (ABNORMAL) Microscopic Manual (10/01/2024 1:14 PM CDT) Microscopy Abnormal 10/01/2024 3:48 PM CDT DTL RBC 3-10(A) <3 /hpf 10/01/2024 3:48 PM CDT DTL Dysmorphic RBC <25 <25 % 10/01/2024 3:48 PM CDT DTL WBC >100(A) /hpf 10/01/2024 3:48 PM CDT DTL Comment: ----REFERENCE VALUE---- <4 (Males) <11 (Females) Bacteria Present(A) 10/01/2024 3:48 PM CDT DTL Urine 10/01/2024 1:14 PM CDT 10/01/2024 3:01 PM CDT Shyam Musa M.D. LAB URINE ORDERABLES Final Re sult [facility] 200 [place], [place] [address] 200 [place] [address] * pH, Urine (10/01/2024 1:14 PM CDT) pH, U 6.4 4.5 - 8.0 10/01/2024 3:0 9 PM CDT DTL Urine 10/01/2024 1:14 PM CDT 10/01/2024 2:22 PM CDT Shyam Musa M.D. LAB URINE ORDERABLES Final Re sult Performing Organization Address [facility] Co de Phone Number [facility] 200 [place], [place] [phone] [place] [address] 200 [place] [address] * (ABNORMAL) Dipstick, Urine (10/01/2024 1:14 PM CDT) Hemoglobin, QL, U Large(A) Negative 10/01/2024 3:01 PM CDT DTL Leukocyte Esterase, U Large(A) Negative 10/01/2024 3:01 PM CDT DTL Nitrite, U Negative Negative 10/01/2024 3:01 PM CDT DTL Ketone, U Negative Negative mg/dL 10/01/2024 3:01 PM CDT DTL Glucose, U Negative Negative mg/dL 10/01/2024 3:01 PM CDT DTL Urine 10/01/2024 1:14 PM CDT 10/01/2024 2:22 PM CDT us Shyam Musa M.D. LAB URINE ORDERABLES Final Re sult Performing Organization Address City/[facility] Co de Phone Number [facility] 200 [place] [address], [facility] 200 [place] [address] * Osmolality, Urine (10/01/2024 1:14 PM CDT) Osmolality, U 372 150 - 1150 mOsm/kg 10/01/2024 3:09 PM CDT DTL Urine 10/01/2024 1:14 PM CDT 10/01/2024 2:22 PM CDT us Shyam Musa M.D. LAB URINE ORDERABLES Final Re sult Performing Organization Address [facility]/ZIP Co de Phone Number [facility] 200 [place] [address], [facility] 200 [place] [address] * (ABNORMAL) Urinalysis, with Microscopic: Urine, Midstream (10/01/2024 1:14 PM CDT) Source Urine, Urine, Midstream 10/01/2024 2:21 PM CDT DTL Color, U Yellow 10/01/2024 2:22 PM CDT DTL Clarity, U Clear 10/01/2024 2:22 PM CDT DTL Protein, U 118(H) <26 mg/dL 10/01/2024 3:05 PM CDT DTL Protein/Osmol ality 3.17(H) <0.42 ratio 10/01/2024 3:09 PM CDT DTL Predicted 24 HR Protein, U 2829(H) <229 mg/24 h 10/01/2024 3:09 PM CDT DTL Predicted Range 898-8914 mg/24 h 10/01/2024 3:09 PM CDT DTL Urine (Urine, Midstream) 10/01/2024 1:14 PM CDT 10/01/2024 2:21 PM CDT us Shyam Musa M.D. LAB URINE ORDERABLES Final Re sult Performing Organization Address [facility] [facility]/ZIP Co de Phone Number [facility] [address] [place] [address], [facility] [address] [place] [address] * (ABNORMAL) Bacterial Culture, Aerobic + Susceptibility, Urine (10/01/2024 1:14 PM CDT) Urine Culture Multiple organisms >10,000 cfu/mL present suggesting probable contamination (A) 10/02/2024 11:08 AM CDT DTL Urine (Urine, Midstream) 10/01/2024 1:14 PM CDT 10/01/2024 2:46 PM CDT Comment:Specimen Source Site : Urine Shyam Musa M.D. LAB MICROBIOLOGY - GENERAL OR DERABLES Final Result [facility] [address] [place] [address], [facility] [address] [place] [address] documented in this encounter Visit Diagnoses Diagnosis Mass Bladder Hematuria documented in this encounter Care Teams Second Operator Relationship Specialty Start Date End Date Elsewhere, Pcp PCP - General Internal Medicine 09/27/24 10/08/24 documented as of this encounter
--- OUTSIDE RECORDS SUMMARY | 2024-10-01 11:00 | XMS_ITS | Encounter Summary ---
Author Organization [facility] Address [address] [place] [address] Care Team Providers Care Electrician Deck Name Role Phone Elsewhere, Pcp Primary Care Provider Unavailabl e Reason for Referral * Outpatient (Routine) - Closed Specialty Diagnoses / Procedures Referred By Contac t Referred To Contact Diagnoses Preanesthetic Medical Exam Procedures ECG 12 Lead [place] EKG 12 LEAD W I&R Kiel Schmidt M.D. [address] [place] [phone] Phone: tel: fax: [facility] Referral ID Status Reason Start Date Expiration Date Visits Re quested Visits Authorized [id number] Closed 10/01/2024 01/01/2026 1 1 * Outpatient (Routine) - Closed Specialty Diagnoses / Procedures Referred By Contact Referred To Contact Cardiovascular Diseases / Cardiovascular Disease Diagnoses Preanesthetic Medical Exam Kiel Schmidt M.D. [address] [place] [phone] Phone: tel: fax: [facility] Referral ID Status Reason Start Date Expiration Date Visits Re quested Visits Authorized [id number] Closed 10/01/2024 04/02/2026 1 1 * Outpatient (Routine) - Authorized Specialty Diagnoses / Procedures Referred By Keiko latif Referred To Contact Diagnoses Preanesthetic Medical Exam Procedures ECG 12 Lead [place] EKG 12 LEAD W I&R Kiel Schmidt M.D. [address] [place] [phone] Phone: tel: fax: [facility] Referral ID Status Reason Start Date Expiration Date V isits Requested Visits Authorized [id number] Authorized 10/01/2024 01/01/2026 1 1 Reason for Visit * Outpatient (Routine) - Closed Specialty Diagnoses / Procedures Referred By Keiko latif Referred To Contact Anesthesiology Diagnoses Malignant Neoplasm Of Bladder (HCC) Shyam Musa M.D. [address] [place] [address] Phone: tel: fax: [facility] Referral ID Status Reason Start Date Expiration Date Visits Re quested Visits Authorized [id number] Closed 09/04/2024 03/06/2026 1 1 Encounter Details Date Type Department Care Team (Latest Contact Info) Description 10/01/2024 11:00 AM CDT Comprehensive Visit Preoperative Evaluation Center in [place], [place] [address] [place] [address] Shyam Musa M.D. [address] [place] [phone] Kiel Schmidt M.D. [address] [place] [phone] Preanesthetic Medical Exam (Primary Dx); Malignant Neoplasm Of Bladder (HCC); Atherosclerotic Heart Disease [place] Coronary Artery With Other Forms Angina Pectoris [...] drink = 0.6 oz pur e alcohol) [facility] Utilities Answer Date Recorded In the past 12 months has th e electric, gas, oil, or water company [...] your living situation today? I have a [facility] place to live 09/04/2024 Education Answer Date Recorded What is the highest level of school you have completed or the highest degree you have received? 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 No prior difficulties with anesthesia. Describes worsening rest and exertional angina in the setting of known coronary artery disease (See notes below). Tobacco use: Quit 1999 (25 pack-years) Alcohol use: 3 drinks per week Caffeine use: 2 beverages per day Other: Denies marijuana use #2 Malignant Neoplasm Of Bladder (HCC) Scheduled for cystoscopy with TURB lesion and bilateral stent placement with Dr. Johnston. #3 Atherosclerotic Heart Disease [place] Coronary Artery With Other Forms Angina Pectoris [...] and spicy meals. He treats this with dlem-lod-uydzifc medications (Tums) approximately twice weekly. 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 MRI demonstrated a small cluster of acute infarction within the right frontoparietal convexity and CTA showed severe right carotid artery stenosis. Patient subsequently underwent a right carotid endarterectomy in February 2020 without complication. Continues to be managed with aspirin therapy. 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 #9 Impairment Cognitive Mild Increasing concerns with [...] Get Ready for Your Surgery or Procedure: [facility]. Written and/or verbal instructions given on medication management before surgery. Reviewed instructions on avoiding aspirin, ibuprofen-containing medications, and supplements one week before surgery. Patient may take acetaminophen as needed for pain. RECOMMENDATIONS: Patient medically optimized for planned procedure: No Further Recommendations: Cardiology CARLOS Consult ordered given the patients increasing frequency of rest and exertional chest pain. I spent 30 minutes of total bccw-db-hezb time in consultation with the patient. documented in this encounter Plan of Treatment Upcoming Encounters Date Type Department Care Team (Late st Contact Info) Description 11/12/2024 9:30 AM CDT Appointment Department of Radiology, [facility], in [address] [phone] Alisa Menjivar M.D. [address] [place] [phone] Discharge Disposition: Home or Self Care 11/12/2024 2:15 PM CDT Office Visit Department of Cardiovascular Medicine in [address] [phone] Elisa Alva M.D. [address] [place] [phone] 11/19/2024 1:00 PM CDT Clinical Communication Virtual Review in [place], [place] 200 [place] [phone] 11/20/2024 8:00 AM CDT Clinical Support Department of Oncology in [address] [phone] Polo Dwyer M.D. [address] [place] [phone] China Parikh M.S.W., L.I.C.S.W. [address] [place] [phone] 11/20/2024 10:50 AM CDT Lab Department of Laboratory Medicine and Pathology, [facility] in [place], [place] [address] [place] [address] Alisa Menjivar M.D. [address] [place] [phone] 11/20/2024 1:30 PM CDT Office Visit Department of Oncology in [place], [place] [address] [place] [address] Alisa Menjivar M.D. [address] [place] [phone] 11/20/2024 3:00 PM CDT Infusion Department of Oncology in [place], [place] [address] [place] [address] Alisa Menjivar M.D. [address] [place] [phone] 11/27/2024 7:30 AM CDT Lab Department of Laboratory Medicine and Pathology, [facility], in [place], [place] [address] [place] [address] Alisa Menjivar M.D. [address] [place] [phone] 11/27/2024 9:30 AM CDT Infusion Department of Oncology in [place], [place] [address] [place] [address] Alisa Menjivar M.D. [address] [place] [address] Scheduled Referrals Name Type Priority Associated Diagnoses [...] CDT) Ventricular Rate ECG/Min 64 BPM MUSE GA Interval 182 ms MUSE QRSD Interval 76 ms MUSE QT Interval 388 ms MUSE QTC Interval 400 ms MUSE P [place] 41 degrees MUSE R [place] 59 degrees MUSE T Wave [place] 49 degrees MUSE 10/09/2024 2:48 PM CDT [...] CDT) Ventricular Rate ECG/Min 78 BPM MUSE GA Interval 164 ms MUSE QRSD Interval 78 ms MUSE QT Interval 362 ms MUSE QTC Interval 412 ms MUSE R [place] 14 degrees MUSE T Wave [place] 18 degrees MUSE 10/01/2024 12:0 6 PM [...] Neoplasm Of Bladder (HCC) Atherosclerotic Heart Disease [place] Coronary Artery With Other Forms Angina Pectoris (Stable Angina/Angina Of Exertion) Hyperlipidemia Obstructive Sleep Apnea Adult Gastroesophageal Reflux Disease Stroke Cerebrovascular Accident Personal History 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
--- OUTSIDE RECORDS SUMMARY | 2024-10-01 14:30 | XMS_ITS | Encounter Summary ---
Author Organization [facility] Address [address] [place] [address] Care Team Providers Care Equip Tech Name Role Phone Elsewhere, Pcp Primary Care Provider Unavailabl e Reason for Visit * MRI/CAT/PET Scan (Routine) - Closed Specialty Diagnoses / Procedures Referred By Keiko t Referred To Contact Radiology Diagnoses Mass Bladder Procedures CT Chest without IV Contrast CT Chest with IV Contrast Shyam Musa M.D. 200 [place] [address] Phone: tel: fax: [facility] Referral ID Status Reason Start Date Expiration Date Visits Re quested Visits Authorized [id number] Closed 09/04/2024 12/05/2025 1 1 Encounter Details Date Type Department Care Team (Latest Contact Info) Description 10/01/2024 2:30 PM CDT - 10/01/2024 11:59 PM CDT Hospital Encounter Department of Radiology, [facility] in [place], [place] [address] [place] [address] Shyam Musa M.D. 200 [place] [phone] Mass Bladder Discharge Disposition: Home or Self Care Social History Tobacco Use Types Packs/Day Years Used Date Smoking Tobacco: Former Smokeless Tobacco: Never Alcohol Use Standard Drinks/Week Comments Yes 6 (1 standard drink = 0.6 oz pur e alcohol) [facility] Utilities Answer Date Recorded In [...] your living situation today? [facility] 09/04/2024 Education Answer Date Recorded What is the highest level of school you have completed or the highest degree you have received? 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 [address] [place] [address] Discharge Disposition: Home or Self Care 11/12/2024 2:15 PM CDT Office Visit Department of Cardiovascular Medicine in [place], [place] [address] [place] [phone] Elisa Alva M.D. [address] [place] [phone] 11/19/2024 1:00 PM CDT Clinical Communication Virtual Review in [place], [place] 200 [place] [address] 11/20/2024 8:00 AM CDT Clinical Support Department of Oncology in [place], [place] [address] [place] [phone] Polo Dwyer M.D. [address] [place] [phone] China Parikh M.S.W., L.I.C.S.W. [address] [place] [phone] 11/20/2024 10:50 AM CDT Lab Department of Laboratory Medicine and Pathology, [facility], in [place], [place] [address] [place] [phone] Alisa Menjivar M.D. [address] [place] [phone] 11/20/2024 1:30 PM CDT Office Visit Department of Oncology in [place], [place] [address] [place] [phone] Alisa Menjivar M.D. [address] [place] [phone] 11/20/2024 3:00 PM CDT Infusion Department of Oncology in [place], [place] [address] [place] [phone] Alisa Menjivar M.D. [address] [place] [phone] 11/27/2024 7:30 AM CDT Lab Department of Laboratory Medicine and Pathology, [facility], in [place], [place] [address] [place] [address] Alisa Menjivar M.D. [address] [place] [phone] 11/27/2024 9:30 AM CDT Infusion Department of Oncology in [place], [place] [address] [place] [address] Alisa Menjivar M.D. [address] [place] [phone] documented as of this encounter Procedures Procedure Name Priority Date/Time Associated Diagnosis Comments CT CHEST WITHOUT IV CONTRAST RAD - Routine (most inpatients and all outpatients) 10/01/2024 2:54 PM CDT Mass Bladder documented in this encounter Results * CT Chest without IV Contrast (10/01/2024 2:54 PM CDT) Anatomical Region Laterality Modality Chest, Thoracic RST LOS, Tho racic ARZ LOS, Thoracic FLA LOS N/A Computed Tomography, Compute d Tomography Impressions 10/02/2024 10:55 AM CDT 1. No definite findings for metastasis to the chest. 2. Indeterminate prominent para-aortic thoracic lymph nodes. 3. Dilated ascending aorta, measuring 45 mm. Narrative 10/02/2024 10:55 AM CDT EXAM: CT CHEST WITHOUT IV CONTRAST COMPARISON: CT urogram 09/03/2024. No prior chest imaging available for comparison at the time of this dictation. FINDINGS: No concerning pulmonary nodules. No adenopathy in the chest. Slightly prominent distal thoracic para-aortic lymph nodes are indeterminate. Normal subpleural scarring in the apices. Minimal atelectasis in the lung bases. Severe coronary calcifications. Aortic valvular calcifications. Ascending aorta is dilated at 45 mm. Small esophageal hiatal hernia. Partially visualized postoperative changes lumbar spine. Procedure Note Oneil Marcano M.D., Ph.D. - 10/02/2024 EXAM: CT CHEST WITHOUT IV CONTRAST COMPARISON: CT urogram 09/03/2024. No prior chest imaging available forcomparison at the time of this dictation. FINDINGS: No concerning pulmonary nodules. No adenopathy in the chest. Slightlyprominent distal thoracic para-aortic lymph nodes are indeterminate. Normal subpleural scarring in the apices. Minimal atelectasis in the lungbases. Severe coronary calcifications. Aortic valvular calcifications.Ascending aorta is dilated at 45 mm. Small esophageal hiatal hernia.Partially visualized postoperative changes lumbar spine. IMPRESSION: 1. No definite findings for metastasis to the chest. 2. Indeterminate prominent para-aortic thoracic lymph nodes. 3. Dilated ascending aorta, measuring 45 mm. Shyam Musa M.D. IMG CT PROCEDURES Final Resul t documented in this encounter Visit Diagnoses Diagnosis Mass Bladder documented in this encounter Care Teams Equip Tech Relationship Specialty Start Date End Date Elsewhere, Pcp PCP - General Internal Medicine 09/27/24 10/08/24 documented as of this encounter
--- OUTSIDE RECORDS SUMMARY | 2024-10-09 07:00 | XMS_ITS | Encounter Summary ---
Author Organization [facility] Address [address] [place] [address] Care Team Providers Care Enrichment Assistant Name Role Phone Elsewhere, Pcp Primary Care Provider Unavailabl e Reason for Referral * Outpatient (Routine) - Authorized Specialty Diagnoses / Procedures Referred By Contac t Referred To Contact Diagnoses Pain Chest Procedures NM Cardiac Perfusion Rest and Stress SPECT Ab Shabazz MPAS, P.A.-C., M.S. [address] [place] [address] Phone: tel: fax: [facility] Referral ID Status Reason Start Date Expiration Date V isits Requested Visits Authorized [id number] Authorized 10/02/2024 01/02/2026 8 8 Reason for Visit * Outpatient (Routine) - Authorized Specialty Diagnoses / Procedures Referred By Contac t Referred To Contact Diagnoses Pain Chest Procedures NM Cardiac Perfusion Rest and Stress SPECT Ab Shabazz MPAS, P.A.-C., M.S. [address] [place] [phone] Phone: tel: fax: [facility] Referral ID Status Reason Start Date Expiration Date V isits Requested Visits Authorized [id number] Authorized 10/02/2024 01/02/2026 8 8 Encounter Details Date Type Department Care Team (Latest Contact Info) Description 10/09/2024 7:00 AM CDT - 10/09/2024 7:12 AM CDT Hospital Encounter Department of Radiology, [facility], in [place], [place] [address] [place] [address] Ab Shabazz MPAS, P.A.-C., M.S. [address] [place] [address] Pain Chest Discharge Disposition: Home or Self Care Social History Tobacco Use Types Packs/Day Years Used Date Smoking Tobacco: Former Smokeless Tobacco: Never Alcohol Use Standard Drinks/Week Comments Yes 3 (1 standard drink = 0.6 oz pur e alcohol) [facility] Utilities Answer Date Recorded In the [...] have a [facility] place to live 10/09/2024 Education Answer Date Recorded What is the highest level of school you have completed or the highest degree you have received? 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 [address] [place] [phone] Discharge Disposition: Home or Self Care 11/12/2024 2:15 PM CDT Office Visit Department of Cardiovascular Medicine in [place], [place] [address] [place] [phone] Elisa Alva M.D. [address] [place] [phone] 11/19/2024 1:00 PM CDT Clinical Communication Virtual Review in [address] [phone] 11/20/2024 8:00 AM CDT Clinical Support Department of Oncology in [address] [phone] Polo Dwyer M.D. [address] [place] [phone] China Parikh, M.S.W., L.I.C.S.W. [address] [place] [phone] 11/20/2024 10:50 AM CDT Lab Department of Laboratory Medicine and Pathology, [facility], in [place], [place] [address] [place] [phone] Alisa Menjivar M.D. [address] [place] [phone] 11/20/2024 1:30 PM CDT Office Visit Department of Oncology in [address] [phone] Alisa Menjivar M.D. [address] [place] [phone] 11/20/2024 3:00 PM CDT Infusion Department of Oncology in [place], [place] [address] [place] [address] Alisa Menjivar M.D. [address] [place] [phone] 11/27/2024 7:30 AM CDT Lab Department of Laboratory Medicine and Pathology, [facility], in [place], [place] [address] [place] [address] Alisa Menjivar M.D. [address] [place] [phone] 11/27/2024 9:30 AM CDT Infusion Department of Oncology in [place], [place] [address] [place] [address] Alisa Menjivar M.D. [address] [place] [phone] documented as of this encounter Procedures Procedure Name Priority Date/Time Associated Diagnosis Comments NM CARDIAC PERFUSION REST AND STRESS SPECT RAD - Routine (most inpatients and all outpatients) 10/09/2024 8:57 AM CDT Pain Chest documented in this encounter Results * NM Cardiac Perfusion Rest and Stress SPECT (10/09/2024 8:57 AM CDT) 10/09/2024 7:13 AM CDT Narrative [facility] - 10/09/2024 10:42 AM CDT See PDF For Result Procedure Note Taina Galloway M.D. - 10/09/2024 See PDF For Result us Ab ABBOTT P.Jo RuedaSMak MORAN Final Result [facility] NA documented in this encounter Visit Diagnoses [...] millicuries documented in this encounter Care Teams Enrichment Assistant Relationship Specialty Start Date End Date Elsewhere, Pcp PCP - General Internal Medicine 10/09/24 documented as of this encounter
--- OUTSIDE RECORDS SUMMARY | 2024-10-09 07:13 | XMS_ITS | Encounter Summary ---
Author Organization [facility] Address [address] [place] [address] Care Team Providers Care Mill Washer Name Role Phone Elsewhere, Pcp Primary Care Provider Unavailabl e Reason for Visit * Outpatient (Routine) - Authorized Specialty Diagnoses / Procedures Referred By Keiko latif Referred To Contact Diagnoses Pain Chest Procedures NM Cardiac Perfusion Rest and Stress SPECT Ab Shabazz MPAS, P.A.-C., M.S. [address] [place] [phone] Phone: tel: fax: [facility] Referral ID Status Reason Start Date Expiration Date V isits Requested Visits Authorized [id number] Authorized 10/02/2024 01/02/2026 8 8 Encounter Details Date Type Department Care Team (Latest Contact Info) Description 10/09/2024 7:13 AM CDT - 10/09/2024 4:59 PM CDT Hospital Encounter Department of Cardiovascular Diseases in [place], [place] [address] [place] [phone] Ab Shabazz MPAS, PMakA.-Shayna., M.S. [address] [place] [phone] Discharge Disposition: Home or Self Care Social History Tobacco Use Types Packs/Day Years Used Date Smoking Tobacco: Former Smokeless Tobacco: Never Alcohol Use Standard Drinks/Week Comments Yes 3 (1 standard drink = 0.6 oz pur e alcohol) [facility] Utilities Answer Date Recorded In [...] your living situation today? I have a [facility] place to live 10/09/2024 Education Answer Date Recorded What is the highest level of school you have completed or the highest degree you have received? 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 [address] [place] [phone] Discharge Disposition: Home or Self Care 11/12/2024 2:15 PM CDT Office Visit Department of Cardiovascular Medicine in [place], [place] 200 [place] [phone] Elisa Alva M.D. 200 [place] [address] 11/19/2024 1:00 PM CDT Clinical Communication Virtual Review in [place], [place] 200 [place] [phone] 11/20/2024 8:00 AM CDT Clinical Support Department of Oncology in [place], [place] [address] [place] [phone] Polo Dwyer M.D. [address] [place] [phone] China Parikh M.S.W., L.I.C.S.W. [address] [place] [phone] 11/20/2024 10:50 AM CDT Lab Department of Laboratory Medicine and Pathology, [facility] in [place], [place] [address] [place] [phone] Alisa Menjivar M.D. [address] [place] [phone] 11/20/2024 1:30 PM CDT Office Visit Department of Oncology in [address] [phone] Alisa Menjivar M.D. [address] [place] [phone] 11/20/2024 3:00 PM CDT Infusion Department of Oncology in [place], [place] [address] [place] [phone] Alisa Menjivar M.D. [address] [place] [phone] 11/27/2024 7:30 AM CDT Lab Department of Laboratory Medicine and Pathology, [facility] in [place], [place] [address] [place] [phone] Alisa Menjivar M.D. [address] [place] [address] 11/27/2024 9:30 AM CDT Infusion Department of Oncology in [place], [place] [address] [place] [address] Alisa Menjivar M.D. [address] [place] [phone] documented as of this encounter Procedures Procedure [...] PDF For Result Ab ABBOTT PJonathan., M.S. IM NM LEO MORAN Final Result CV MERGE NA documented in this encounter Visit Diagnoses Not on filedocumented in this encounter Care Teams Mill Washer Relationship Specialty Start Date End Date Elsewhere, Pcp PCP - General Internal Medicine 10/09/24 documented as of this encounter
--- OUTSIDE RECORDS SUMMARY | 2024-10-09 07:13 | XMS_ITS | Encounter Summary ---
Author Organization [facility] Address [address] [place] [address] Care Team Providers Care Musical String Maker Name Role Phone Elsewhere, Pcp Primary Care Provider Unavailabl e Reason for Visit * Outpatient (Routine) - Authorized Specialty Diagnoses / Procedures Referred By Keiko latif Referred To Contact Diagnoses Pain Chest Procedures NM Cardiac Perfusion Rest and Stress SPECT Ab Shabazz MPAS, P.A.-C., M.S. [address] [place] [phone] Phone: tel: fax: [facility] Referral ID Status Reason Start Date Expiration Date V isits Requested Visits Authorized [id number] Authorized 10/02/2024 01/02/2026 8 8 Encounter Details Date Type Department Care Team (Latest Contact Info) Description 10/09/2024 7:13 AM CDT - 10/09/2024 4:59 PM CDT Hospital Encounter Department of Radiology, [facility], in [place], [place] [address] [place] [address] Ab Shabazz MPAS PTee.-Shayna., M.S. [address] [place] [phone] Discharge Disposition: Home or Self Care Social History Tobacco Use Types Packs/Day Years Used Date Smoking Tobacco: Former Smokeless Tobacco: Never Alcohol Use Standard Drinks/Week Comments Yes 3 (1 standard drink = 0.6 oz pur e alcohol) [facility] Utilities Answer Date Recorded In the [...] your living situation today? I have a [facility] place to live 10/09/2024 Education Answer Date Recorded What is the highest level of school you have completed or the highest degree you have received? 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 [address] [place] [phone] Discharge Disposition: Home or Self Care 11/12/2024 2:15 PM CDT Office Visit Department of Cardiovascular Medicine in [place], [place] [address] [place] [address] Elisa Alva M.D. 200 [place] [phone] 11/19/2024 1:00 PM CDT Clinical Communication Virtual Review in [place], [place] 200 [place] [phone] 11/20/2024 8:00 AM CDT Clinical Support Department of Oncology in [place], [place] [address] [place] [phone] Polo Dwyer M.D. [address] [place] [phone] China Parikh M.S.W., L.I.C.S.W. [address] [place] [phone] 11/20/2024 10:50 AM CDT Lab Department of Laboratory Medicine and Pathology, [facility] in [place], [place] [address] [place] [phone] Alisa Menjivar M.D. [address] [place] [phone] 11/20/2024 1:30 PM CDT Office Visit Department of Oncology in [place], [place] [address] [place] [phone] Alisa Menjivar M.D. [address] [place] [phone] 11/20/2024 3:00 PM CDT Infusion Department of Oncology in [place], [place] [address] [place] [phone] Alisa Menjivar M.D. [address] [place] [phone] 11/27/2024 7:30 AM CDT Lab Department of Laboratory Medicine and Pathology, [facility] in [place], [place] [address] [place] [phone] Alisa Menjivar M.D. [address] [place] [phone] 11/27/2024 9:30 AM CDT Infusion Department of Oncology in [place], [place] [address] [place] [address] Alisa Menjivar M.D. [address] [place] [phone] documented as of this encounter Procedures Procedure Name Priority Date/Time Associated Diagnosis Comments NM CARDIAC PERFUSION REST AND STRESS SPECT RAD - Routine (most inpatients and all outpatients) 10/09/2024 8:57 AM CDT Pain Chest documented in this encounter Visit Diagnoses Not on filedocumented in this encounter Administered Medications Inactive Administered Medications - up to 3 most recent administrations Medication Order MAR Action Action Date Dose Rate Site technetium Tc 99m sestamibi injection (Tc-99m Cardiolite) 5.4-48.4 millicurie, intravenous, Once, On Tue10/09/24 at 0845, For 1 dose, Imaging Protocol Orders Given 10/09/2024 8:28 AM CDT 34.1 millicuries documented in this encounter Care Teams Musical String Maker Relationship Specialty Start Date End Date Elsewhere, Pcp PCP - General Internal Medicine 10/09/24 documented as of this encounter
--- OUTSIDE RECORDS SUMMARY | 2024-10-09 16:15 | XMS_ITS | Encounter Summary ---
Author Organization [facility] Address [address] [place] [address] Care Team Providers Care Shank Maker Name Role Phone Elsewhere, Pcp Primary Care Provider Unavailabl e Reason for Visit * Outpatient (Routine) - Closed Specialty Diagnoses / Procedures Referred By Contact Referred To Contact Cardiovascular Diseases / Cardiovascular Disease Diagnoses Preanesthetic Medical Exam Kiel Schmidt M.D. [address] [place] [address] Phone: tel: fax: [facility] Referral ID Status Reason Start Date Expiration Date Visits Re quested Visits Authorized [id number] Closed 10/01/2024 04/02/2026 1 1 Encounter Details Date Type Department Care Team (Latest Contact Info) Description 10/09/2024 4:15 PM CDT Office Visit Department of Cardiovascular Medicine in [place], [place] [address] [place] [address] Elisa Alva M.D. [address] [place] [address] Preoperative Exam (Primary Dx); Preoperative Examination Cardiovascular; Hyperlipidemia; Embolus Pulmonary Personal History; Preanesthetic Medical Exam; Angina Unstable (HCC) Social History Tobacco Use Types Packs/Day Years Used Date Smoking Tobacco: Former Smokeless Tobacco: Never Alcohol Use Standard Drinks/Week Comments Yes 3 (1 standard drink = 0.6 oz pur e alcohol) [facility] Utilities Answer Date Recorded In the [...] money to buy more. Never true 10/10/19 Within the past 12 months, t he [...] your living situation today? I have a [facility] place to live 10/09/2024 Education Answer Date Recorded What is the highest level of school you have completed or the highest degree you have received? 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 Mr. Samayao does not describe nocturnal symptoms and he [...] of his symptoms, we will admit to [facility] for coronary angiography and possible percutaneous intervention. 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 He was admitted to [facility] February 2020 with ischemic CVA. MRI showed [...] high risk of adverse cardiac events, including CA, with anesthesia. Recommend hospital admission for PCI. Will admit patient to [facility] This 78-year-old male with obstructive coronary [...] with unstable angina. Recommend patient present to [facility] ER for urgent coronary angiography. Handoff was provided to our team there. Patient and family expressed understanding of plan and will proceed to the ER. Patient staffed with Dr. Yariel Alva M.D. [facility] Cardiovascular Diseases Fellow PGY-4 Pager: [phone] Cosigned by Yariel Muniz M.D. at 10/09/2024 4:47 PM CDT documented in this encounter Plan of Treatment Upcoming Encounters Date Type Department Care Team (Late st Contact Info) Description 11/12/2024 9:30 AM CDT Appointment Department of Radiology, [facility], in [address] [phone] Alisa Menjivar M.D. [address] [place] [phone] Discharge Disposition: Home or Self Care 11/12/2024 2:15 PM CDT Office Visit Department of Cardiovascular Medicine in [place], [place] [address] [place] [phone] Elisa Alva M.D. [address] [place] [phone] 11/19/2024 1:00 PM CDT Clinical Communication Virtual Review in [address] [phone] 11/20/2024 8:00 AM CDT Clinical Support Department of Oncology in [address] [phone] Polo Dwyer M.D. [address] [place] [phone] China Parikh, M.S.W., L.I.C.S.W. [address] [place] [phone] 11/20/2024 10:50 AM CDT Lab Department of Laboratory Medicine and Pathology, [facility], in [place], [place] [address] [place] [phone] Alisa Menjivar M.D. [address] [place] [phone] 11/20/2024 1:30 PM CDT Office Visit Department of Oncology in [place], [place] [address] [place] [phone] Alisa Menjivar M.D. [address] [place] [phone] 11/20/2024 3:00 PM CDT Infusion Department of Oncology in [place], [place] [address] [place] [phone] Alisa Menjivar M.D. [address] [place] [phone] 11/27/2024 7:30 AM CDT Lab Department of Laboratory Medicine and Pathology, [facility] in [place], [place] [address] [place] [phone] Alisa Menjivar M.D. [address] [place] [phone] 11/27/2024 9:30 AM CDT Infusion Department of Oncology in [place], [place] [address] [place] [phone] Alisa Menjivar M.D. [address] [place] [phone] documented as of this encounter Visit Diagnoses Diagnosis Preoperative Exam- Primary Preoperative Examination Cardiovascular Hyperlipidemia Embolus Pulmonary Personal History Preanesthetic Medical Exam Angina Unstable (HCC) documented in this encounter Care Teams Shank Maker Relationship Specialty Start Date End Date Elsewhere, Pcp PCP - General Internal Medicine 10/09/24 documented as of this encounter
--- OUTSIDE RECORDS SUMMARY | 2024-10-09 17:00 | XMS_ITS | Encounter Summary ---
Author Organization [facility] Address [address] [place] [address] Care Team Providers Care Utility Worker Roller Shop Name Role Phone Elsewhere, Pcp Primary Care Provider Unavailabl e Reason for Visit * Reason Comments Chest Pain Encounter Details Date Type Department Care Team (Latest Contact Info) Description 10/09/2024 5:00 PM CDT - 10/12/2024 4:06 PM CDT Hospital Encounter [facility], Fifth Floor [address] [place] [address] [phone] Zuri Harvey, P.A.-C., M.S. [address] [place] [address] [phone] Spencer Marroquin M.D. [address] [place] [phone] Terry Oliveira M.D., Ph.D. [address] [place] [phone] Iva Ascencio M.D., Ph.D. [address] [place] [phone] Angina Unstable (HCC) (Primary Dx); Pain Chest; Decline Functional Status [R53.81]; Malaise [R53.81] Discharge Disposition: Home or Self Care Social History Tobacco Use Types Packs/Day Years Used Date Smoking Tobacco: Former Smokeless Tobacco: Never Alcohol Use Standard Drinks/Week Comments Yes 3 (1 standard drink = 0.6 oz pur e alcohol) [facility] Utilities Answer Date Recorded In the past 12 months has [facility] electric, gas, oil, or water company threatened [...] your living situation today? I have a [facility] place to live 10/09/2024 Education Answer Date Recorded What is the highest level of school you have completed or the highest degree you have received? 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 Primary Team: [facility] CARD 2 Primary Care Providers: Elsewhere, Pcp [...] CORONARY ANGIOGRAPHY Grey Gomez M.D.Sherafati, Alborz, M.D. [facility] ROMB CCL DISCHARGE DISPOSITION Home or Self Care [1] ACTIVE ISSUES REQUIRING FOLLOW UP Discharge Notes from your Provider Team You were discharged from the [facility] CVD 2 Service. Please identify this service name if you call with questions after hospitalization. Your primary hospital diagnosis: Multi-vessel coronary disease Important test results: - 10/10 Diagnostic cardiac catheterization with multivessel coronary disease, [...] prior to your follow-up appointments, contact the [facility] Medication Technician at [phone] and ask to speak with the Cardiology [...] for ACS, and was admitted to the [facility] CARD 2 service for further management and [...] this encounter Progress Notes * Adry Gutierres, D., R.Ph., [facility] - 10/12/2024 7:45 AM CDT Pharmacist [...] bleeding bladder mass. Surrogate Decision Maker: Spouse, Betet. Living Situation Before Admission: Independent at home. Discharge Plan (equipment, therapy, and facility): Disposition planning ongoing Plan discussed with [facility] 2 Record Retrieval Specialist, Dr. Marroquin, who was present during coats portions of the evaluation today. Please page the [facility] C[facility] 2 service pager at [phone] with any questions. Clari Daniel PGY 1 Internal Medicine Personal Pager: [phone] 10/11/24 * Spencer Marroquin M.D. - 10/11/2024 [...] at the ostium of the ramus. The DENTAL SURGERY DOCTOR of the right coronary artery receives collaterals [...] He was on his cell phone, asked High School Business Teacher to return later. PLAN Case Management will attempt to see patient at a later time, when available. * Adry Gutierres Pharm.D., R.Ph., [facility] - 10/11/2024 7:37 AM CDT Pharmacist [...] MD PGY-3 Urology Urology chief service pager: [phone] from [phone] Emergency call pager: [phone] from [phone] This was discussed with chief urology resident, [...] ongoing Plan discussed with [facility] C[facility] 2 Record Retrieval Specialist, Dr. Marroquin, who was present during coats portions of the evaluation today. Please page the [facility] CARD 2 service pager at [phone] with any questions. Clari Daniel PGY 1 Internal Medicine Personal Pager: [phone] 10/10/24 * Michaelle Nicole R.N. - 10/10/2024 10:46 AM CDT SUBJECTIVE Attempted to see patient to address discharge planning. OBJECTIVE Patient not seen at this time. ASSESSMENT Unable to complete assessment as patient was not able to participate in assessment at this time. PLAN Case Management will attempt to see patient at a later time, when available. * Adry Gutierres, Pharm.D., R.Ph., [facility] - 10/10/2024 7:09 AM CDT Pharmacist Progress [...] treating with 3 days Bactrim Adry Gutierres PharmАнна., R.Ph., [facility] * Alberto De Paz Pharm.D., R.Ph., [facility] - 10/09/2024 9:57 PM CDT Images from [...] Status: Pharmacy Complete Set By: Alberto De Paz Pharm.D., R.Ph., BCPS at 10/09/2024 9:57 PM Taking? [...] Spencer Marroquin M.D. CT CT Job ID: [id number] * Clarissa Calle Sr., M.D. - 10/09/2024 [...] for the past couple of months. The fiscal technician recommended that he first fix any anginal [...] he no longer needed to be on halfway anticoagulation. Patient has a history of hematuria [...] Hernandez Samayoa was being seen at the [facility] cardiology out patient clinic for pre-operative consultation on his upcoming TURBT with bilateral stent placement planed forJuly 2024. During the visit he mentioned to the fiscal technician's that he had been having on and [...] on his description of his symptoms a fiscal technician at the outpatient clinic were concerned for unstable angina and [facility] ED[facility] and possible urgent coronary Angiography. ED course: Upon arrival to [facility] ER Mr. Ng denied any chest [...] of any procedures the next day. Due to his new onset bilateral pedal edema with his left leg being worse than his right, ultrasounds wereordered for further evaluation to rule out DVT. Bilateral kidney ultrasounds were also ordered for evaluation of possible hydronephrosis due to his history of bladder obstruction and to help rule out fluid overload. He was continued on his home [...] stenosis of small OM1 and distal RCA DENTAL SURGERY DOCTOR. Social History: Former Smoker, quit 25 - [...] & Screen Expiration 10/12/2024 23:59 Testing Location [place] CBC without Differential Collection Time: 10/09/24 11:30 [...] patient. However during his visit to the [facility] cardiology outpatient clinic regarding his upcoming Bladder [...] Clarissa Calle MD Internal Medicine, PGY-1 Pager: [phone] * Mario Musa M.D. - 10/09/2024 7:32 PM CDT [facility] 2 SENIOR EQUIPMENT SERVICE LEAD SUPERVISORY ADMISSION NOTE SUBJECTIVE Mr. Samayoa is a 78 y.o. year old male who initially presented in the outpatient setting for a preanesthetic medical evaluation for a surgical evaluation for a bladder mass but was describing worsening chest discomfort concerning for ACS, and is now admitted to the [facility] CARD 2 service for further management and [...] and diffuse RCA disease with evidence of DENTAL SURGERY DOCTOR (Outside CT chest/coronary angiogram 01/28/2020) #. Chronic [...] ACS, and is now admitted to the [facility] CARD 2 service for further management and [...] plan will be formally discussed with the [facility] CARD 2 Record Retrieval Specialist, Spencer Arenas M.D., within 24 hours. Please page the [facility] CARD 2 service pager with any questions. Mario [...] 78 y.o. male who was admitted to 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 Handouts provided: Bathroom Safety Equipment [id number], Preventing Falls [id number], Home Safety Suggestions [id number], Adaptive Equipment Catalog/List of Vendors Team Communication: [...] Assistance with medication set up/administration, Assistance with manager financial, Assistance with transportation, Assistance with shopping, Assistance [...] safety with higher complexity tasks such as manager financial, shopping, meal preparation, and driving. Due to [...] min Total Treatment Time (min): 49 min Amber Kaess, OTS [1] Past Medical History: Diagnosis Date Apnea Sleep Obstructive Blood Transfusion No Diagnosis Malignant Primary Neoplasm (Unknown Site) Unspecified (HCC) Transient Ischemic Attack pt thinks he did at one point [2] Past Surgical History: Procedure Laterality Date BLADDER SURGERY 1979 CATH ANGIOGRAM N/A 10/10/2024 Procedure: CORONARY ANGIOGRAPHY; Surgeon: Grey Gomez M.D.; Location: [facility] ROM CCL COLONOSCOPY pt thinks hes had 2 TONSILLECTOMY WISDOM TOOTH EXTRACTION Cosigned by Aye Del Rosario O.T., O.TWilver at 10/12/2024 4:22 PM CDT Associated attestation - Aye Del Rosario O.T., O.TWilver - 10/12/2024 4:22 PM CDT This therapist [...] 78 y.o. male who was admitted to 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 OBJECTIVE Vital Signs: HR [...] Tolerates 10-20 minutes of activity Outcome Measures: [facility] Inpatient Short Form: [facility] Basic Mobility (V.2) How much [...] CORONARY ANGIOGRAPHY; Surgeon: Grey Gomez M.D.; Location: [facility] COLONOSCOPY pt thinks hes had 2 TONSILLECTOMY WISDOM TOOTH EXTRACTION * Carissa Perez RMakNMak - 10/11/2024 1:59 PM CDTAssociated Order(s): IP CONSULT TO CARE MANAGEMENT; IP CONSULT TO CARE MANAGEMENT Discharge Planning Assessment SUBJECTIVE Assessment Information Referral Data Referral Source: Early Screen for Discharge Planning Referral Name: ESDP score 14 Previous Assessment: No Monomer Purification Operator Services Used: No Primary Language: German Monomer Purification Operator Services Used: No Person(s) Present During Interview: patient and significant other, Christopheret. History of Present Illness #1 Angina Unstable [...] Primary Care Physician Family Medicine 10/09/24 Address: [address] [place] [phone] Additional Resources: Additional Services: NA Anticipated Needs Functional Status: None Assistive Devices: None Anticipated Modifications to the Patient's Home: None Transportation Needs: Support from family Does the patient need discharge transport arranged?: No Phone Number for Ride/Caregiver: Jose [phone] Anticipated Discharge Destination: Home or Self Care Referrals Initiated: None records assistant provided Care Management Brochure ([id number]), information regarding the dismissal process, and the Senior Linkage Line ([place] Board on [place]) handout. ASSESSMENT / PLAN ASSESSMENT: The records assistant met with Hernandez Samayoa to discuss his current hospitalization and home goingneeds. The patient was accompanied by girlfriend, Roderick. The patient was a reliable historian. The role of records assistant was reviewed. The patient reviewed his prior [...] Patient is requesting information regarding private pay [facility]. Patient would like PT/OT assessment. Service team [...] ready. Support will be provided by self. records assistant recommendations include: discussing needed assistance with family, [...] course) Transportation upon dismissal will be Jose. records assistant encouraged the patient to reach out with any questions/concerns. Care Management will continue to assess for homegoing needs with the interdisciplinary team. Signed by: Carissa Perez R.N. 10/11/2024 * Joseph Laurie G - 10/10/2024 9:01 AM CDTAssociated Order(s): IP [...] this time Estimated Needs: Total Calorie Needs: 2497-9454 calories/day Method to Estimate Energy Needs: kcal/kg [...] about patient's nutritional care please contact pager [phone] on weekdays 07:30-16:00 or [phone] on weekends/holidays ([facility]) [phone]. [1] Past Medical History: Diagnosis Date Apnea [...] this encounter Nursing Notes * Liat Sam RMakNMak - 10/12/2024 3:58 PM CDT Shift Goals: [...] tele monitory discontinued. Patient is going home [facility] and will be transported home by family. Patient transferred to front entrance by wheelchair with transportstaff and family. Problem: Risk for Compromised Skin Integrity-Other Computer Systems Software Engineer(s) Goal: Risk for Compromised Skin Integrity-Other Computer Systems Software Engineer(s) 10/12/20241557 by Liat Sam, R.N. Outcome: Adequate for Discharge Problem: PAIN - ADULT Goal: PT VERBALIZES/DEMONSTRATES ADEQUATE COMFORT LEVEL OR BASELINE 10/12/20241557 by Liat Sam, R.N. Outcome: Adequate for Discharge Problem: KNOWLEDGE DEFICIT Goal: Patient/family/caregiver demonstrates understanding of disease process, treatment plan, medications, and discharge instructions 10/12/20241557 by Liat Sam, R.NMak Outcome: Adequate for Discharge Problem: INFECTION - ADULT Goal: Absence of infection during hospitalization 10/12/20241557 by Liat Sam, R.NMak Outcome: Adequate for Discharge Problem: SKIN/TISSUE INTEGRITY Goal: Skin/Tissue integrity maintained or improved 10/12/20241557 by Liat Sam, R.N. Outcome: Adequate for Discharge Goal: Oral and Nasal mucous membranes remain intact 10/12/20241557 by Liat Sam, R.N. Outcome: Adequate for Discharge Problem: SAFETY ADULT Goal: Maintain a safe environment 10/12/20241557 by Liat Sam, R.N. Outcome: Adequate for Discharge Problem: DISCHARGE PLANNING [...] from fall/fall injury 10/12/20241557 by Liat Sam, R.N. Outcome: Adequate for Discharge Problem: CARDIOVASCULAR - ADULT Goal: Maintains optimal cardiac output and hemodynamic stability 10/12/20241557 by Liat Sam, R.NMak Outcome: Adequate for Discharge Problem: METABOLIC/FLUID AND ELECTROLYTES - ADULT Goal: Hemodynamic stability and optimal renal function maintained 10/12/20241557 by Liat Sam, R.N. Outcome: Adequate for Discharge * Janie Osei RMakN. - 10/11/2024 5:19 PM CDT Shift Goals: [...] PM CDT MEDICAL ONCOLOGY CONSULT SERVICE: VENECIA PHILLIPS Primary Service: [facility] CARD 2 Local Oncologist: No care steam conditioner operator to display [facility] Oncologist(s): No care steam conditioner operator to display Reason(s) for consult: New/suspected cancer diagnosis Mr. Hernandez Samayoa is a 78 year old male admitted for gross hematuria and urinary retention with imaging concerning for advanced bladder cancer (large bladder mass with clear extravesical extension and concern for óscar involvement. Urology was consulted and Dr. Rojsa recommended metastatic diease confirmation with imaging guidedbiopsy [...] any further questions or concerns arise at [phone](service pager), M-F 7:00 a.m. to 7:00 p.m, Deon-Gwen Record Retrieval Specialist on Consult service. Elizabeth Kennedy APRN, C.NVivek, M.S.N. * Sakshi Ochoa R.N. - 10/11/2024 4:36 AM CDT Problem: Risk for Compromised Skin Integrity-Other Computer Systems Software Engineer(s) Goal: Risk for Compromised Skin Integrity-Other Computer Systems Software Engineer(s) Note: RN assess for pain and adjacent [...] BMI 26.12 kg/m?? * Janie Pal R.N., [facility]- - 10/10/2024 8:30 AM CDT Proactive [...] screening, we have the following recommendations: [] box liner visit [x] Discuss with primary team to [...] education/support-primary team to place order [] Recommend Residue Furnace Operator Services consultation- primary nursing to place order [] Recommend social work/substance use consultation -primary team to place order [] Recommend outpatient psychiatric follow-up - primary team to place psychiatric consult order to coordinate [] No acute psychiatric intervention needed; please reach out if questions or concerns. [] Other [place] [phone] with questions. Janie Pal R.N., [facility] 10/10/2024 * Desiree Mckeon R.N. - 10/10/2024 [...] patient was recommended to present to the [facility] ED to expedite hospital admission for urgent PCI. He denies any current chest pain here in the ED. He is currently anticoagulated on Eliquis. He denies any fever, cough, hemoptysis, increased edema, or shortness of breath. There are no other complaints at this time. History provided by: Patient and medical records landman needed/used: no REVIEW OF SYSTEMS Reason unable [...] myocardial injury. Patient does also have an EKVIN but is tolerating PO intake and feels [...] for ACS, and was admitted to the [facility] CARD 2 service for further management and [...] 9:30 AM CDT Appointment Department of Radiology, [facility], in [address] [phone] Alisa Menjivar M.D. [address] [place] [phone] Discharge Disposition: Home or Self Care 11/12/2024 2:15 PM CDT Office Visit Department of Cardiovascular Medicine in [address] [phone] Elisa Alva M.D. [address] [place] [phone] 11/19/2024 1:00 PM CDT Clinical Communication Virtual Review in [address] [phone] 11/20/2024 8:00 AM CDT Clinical Support Department of Oncology in [address] [phone] Polo Dwyer M.D. [address] [place] [phone] China Parikh, M.S.W., L.I.C.S.W. [address] [place] [phone] 11/20/2024 10:50 AM CDT Lab Department of Laboratory Medicine and Pathology, [facility], in [address] [phone] Alisa Menjivar M.D. [address] [place] [phone] 11/20/2024 1:30 PM CDT Office Visit Department of Oncology in [place], [place] [address] [place] [phone] Alisa Menjivar M.D. [address] [place] [phone] 11/20/2024 3:00 PM CDT Infusion Department of Oncology in [place], [place] [address] [place] [phone] Alisa Menjivar M.D. [address] [place] [phone] 11/27/2024 7:30 AM CDT Lab Department of Laboratory Medicine and Pathology, [facility] in [place], [place] [address] [place] [phone] Alisa Menjivar M.D. [address] [place] [phone] 11/27/2024 9:30 AM CDT Infusion Department of Oncology in [address] [phone] Alisa Menjivar M.D. [address] [place] [phone] documented as of this encounter Procedures Procedure [...] Renal Function Panel (10/12/2024 1:08 PM CDT) [facility] Potassium, S 5.0 3.6 - 5.2 mmol/L [...] M.D. LAB BLOOD ADD-ON Final Res ult [place] [address] [place] [address], [facility] [place] [address] * (ABNORMAL) CBC without Differential (10/12/2024 1:08 [...] M.D. LAB BLOOD ADD-ON Final Res ult [facility] [address] [place] [address], [facility] [address] [place] [address] * CT Lymph Node Biopsy (10/11/2024 12:52 [...] series 302, image 166. A total of [id number] cores were obtained from the lymph node [...] series 302, image 166. A total of [id number] cores were obtained from the lymph node [...] lymph node biopsy. NR Mila Burgess M.D. IMG CT PROCEDURES Final Re sult [...] features. Immunohistochemic al stains were performed at [facility] (block A1). 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 Digital imaging was used in the diagnostic assessment of this case. (A) 10/15/2024 12:58 PM CDT DTL Tissue (Pelvis, Left) 10/11/2024 11:32 AM CDT Mila Burgess M.D. LAB SURG PATH ORDERABLES F inal Result [facility] [address] [place] [address], [facility] DTL [address] [place] [address] * (ABNORMAL) Renal Function Panel (10/11/2024 8:38 [...] 8:38 AM CDT 10/11/2024 10:29 AM CDT Mila Burgess M.D. LAB BLOOD ADD-ON Final Res ult Performing Organization Address [facility] Co de Phone Number [facility] [address] [place] [address], [facility] [address] [place] [address] * (ABNORMAL) CBC without Differential (10/11/2024 8:38 [...] ADD-ON Final Res ult Performing Organization Address City/[facility]/ZIP Co de Phone Number [facility] [address] [place] [address], [facility] [address] [place] [address] * CORONARY ANGIOGRAPHY (10/10/2024 4:18 PM CDT) Anatomical Region Laterality Modality X-Ray Angiograph y 10/10/2024 3:43 PM CDT Narrative 10/10/2024 4:58 PM CDT For the complete report, see the Order-Level Documents. PROCEDURE TYPES 1. CORONARY ANGIOGRAPHY FINAL DIAGNOSIS 1. Severe coronary artery atherosclerosis 2. DENTAL SURGERY DOCTOR (Chronic Total Occlusion) 3. Coronary artery collateral [...] was an iliac stenosis overcome using a [place] wire, and the 5 Fr catheters easily traversed the stenosis. We then performed the angiogram outline below. Briefly, mild LM, severe mid LAD disease (diffuse moderate proximal LAD disease), hazy severe ostial ramus lesion, and likely proximal LCx disease as well. There is an RCA DENTAL SURGERY DOCTOR with good left to right collaterals. Discussed [...] left anterior descending artery and second septal landcare facilitator. The right posterolateral segment is 99% obstructed [...] DIAGNOSIS 1. Severe coronary artery atherosclerosis 2. DENTAL SURGERY DOCTOR (Chronic Total Occlusion) 3. Coronary artery collateral [...] LCx diseaseas well. There is an RCA DENTAL SURGERY DOCTOR with good left to right collaterals.Discussed with [...] distal left anterior descendingartery and second septal landcare facilitator. The right posterolateral segment is 99% obstructed [...] M.D. LAB URINE ORDERABLES Final Resu lt [facility] [address] [place] [address], [facility] [address] [place] [address] * (ABNORMAL) Dipstick, Urine (10/10/2024 5:41 AM [...] M.D. LAB URINE ORDERABLES Final Resu lt [facility] [address] [place] [address], [facility] [address] [place] [address] * pH, Urine (10/10/2024 5:41 AM CDT) pH, U 5.8 4.5 - 8.0 10/10/2024 6:1 9 AM CDT DTL Urine 10/10/2024 5:41 AM CDT 10/10/2024 5:58 AM CDT Mario Musa M.D. LAB URINE ORDERABLES Final Resu lt [facility] [address] [place] [address], [facility] [address] [place] [address] * Osmolality, Urine (10/10/2024 5:41 AM CDT) Pathologist [facility] Osmolality, U 215 150 - 1150 mOsm/kg 10/10/2024 6:19 AM CDT DTL Urine 10/10/2024 5:41 AM CDT 10/10/2024 5:58 AM CDT Mario Musa M.D. LAB URINE ORDERABLES Final Resu lt Performing Organization Address [facility]/ZIP Co de Phone Number [facility] [address] [facility] [address] [place] [address] * (ABNORMAL) Urinalysis, with Microscopic: Urine, Catheter [...] AM CDT 10/10/2024 5:58 AM CDT us Mila Burgess M.D. LAB URINE ORDERABLES Final Result Performing Organization Address [facility]/ZIP Co de Phone Number [facility] [address] [place] [address], [facility] [address] [place] [address] * ECG 12 Lead (10/10/2024 4:13 AM CDT) Ventricular Rate ECG/Min 58 BPM MUSE NC Interval 168 ms MUSE QRSD Interval 76 ms MUSE QT Interval 418 ms MUSE QTC Interval 410 ms MUSE P [place] 79 degrees MUSE R [place] 24 degrees MUSE T Wave [place] 17 degrees MUSE 10/10/2024 4:13 AM CDT [...] change was found Reviewed by JIM Aguirre Mila Burgess M.D. ECG ORDERABLES Final Resu [...] and management can be found on the [employer] site. Link [email or web address] Procedure Note Judy Ibrahim M.D. - 10/10/2024 [...] thrombosis and management can be found on theHouzz site. [email or web address] IMPRESSION: 1. Negative for acute DVT in [...] of the bladder wall, consistent withknown malignancy. Mila Burgess M.D. IMG US PROCEDURES Final [...] M.D. LAB BLOOD ADD-ON Final Res ult [facility] [address] [place] [address], [place] DTL [facility] [address] [place] [address] * (ABNORMAL) Troponin T, 5th Generation (10/09/2024 11:30 PM CDT) Pathologist [facility] Troponin T, 5th gen 31(H) <=15 ng/L 10/09/2024 11:53 PM CDT ST[facility] Blood (Blood, Venous) 10/09/2024 11:30 PM CDT 10/09/2024 11:37 PM CDT Mila Burgess M.D. LAB BLOOD ADD-ON Final Res ult Performing Organization Address [facility] Co de Phone Number [facility] [address] [place] [address], [facility] [address] [place] [address] * (ABNORMAL) CBC without Differential (10/09/2024 11:30 PM CDT) [facility] Hemoglobin 9.5(L) 13.2 - 16.6 g/dL 10/10/2024 [...] ADD-ON Final Res ult Performing Organization Address [facility]/ZIP Co de Phone Number [facility] [address] [place], [place] [address] DTL [facility] [address] [place] [address] * Type and Screen (with Reflex Antibody ID) (10/09/2024 11:25 PM CDT) Pathologist [facility] ABORh O Neg Not applicable 10/10/2024 1:17 AM CDT STRM Antibody Screen Negative Negative 10/10/2024 1:30 AM CDT STRM Type & Screen Expiration 10/12/2024 23:59 10/10/2024 1:17 AM CDT STRM Testing Location Archie DEFAULT 10/10/2024 12:50 AM CDT STRM Blood (Blood, Venous) 10/09/2024 11:25 PM CDT 10/10/2024 12:50 AM CDT Mila Burgess M.D. LAB BLOOD BANK TEST ORDERA BLES Final Result [facility] [address] [place], [place] [address] [address] [place] [address] * ECG 12 Lead (10/09/2024 10:00 PM CDT) Pathologist [facility] Ventricular Rate ECG/Min 58 BPM MUSE NC Interval 172 ms MUSE QRSD Interval 80 ms MUSE QT Interval 412 ms MUSE QTC Interval 404 ms MUSE P [place] 41 degrees MUSE R [place] 38 degrees MUSE T Wave [place] 33 degrees MUSE 10/09/2024 10:0 0 PM [...] in Inferior leads Reviewed by JIM Aguirre Spencer Marroquin M.D. ECG ORDERABLES Final Resu lt Performing Organization Address [facility] de Phone Number MUSE NA * ECG 12 Lead (10/09/2024 8:57 PM CDT) Ventricular Rate ECG/Min 63 BPM MUSE NC Interval 166 ms MUSE QRSD Interval 76 ms MUSE QT Interval 398 ms MUSE QTC Interval 407 ms MUSE P [place] 24 degrees MUSE R [place] 7 degrees MUSE T Wave [place] 0 degrees MUSE 10/09/2024 8:57 PM CDT [...] ECG ORDERABLES Edited Res ult - Final Performing Organization Address [facility] Co de Phone Number MUSE NA * (ABNORMAL) Troponin T, 2 [...] M.S. LAB BLOOD TROPONIN Fi nal Result [facility] [address] [place] [address], [facility] [address] [place] [address] * DX Chest AP or PA and [...] M.S. LAB BLOOD ADD-ON Gabriella l Result Performing Organization Address City/[facility] Co de Phone Number [facility] [address] [place] [address] * Prothrombin Time (PT) (10/09/2024 5:25 PM CDT) Prothrombin Time, P 12.4 9.4 - 12.5 sec 10/09/2024 5:38 PM CDT [facility] IN[facility] 1.1 0.9 - 1.1 10/09/2024 5:38 PM CDT [facility] Comment: ----ADDITIONAL INFORMATION---- Standard intensity warfarin therapeutic range: 2.0 to 3.0 High intensity warfarin therapeutic range: 2.5 to 3.5 Blood (Blood, Venous) 10/09/2024 5:25 PM CDT 10/09/2024 5:31 PM CDT Zuri Harvey P.A.-C., M.S. LAB BLOOD ADD-ON Gabriella l Result Performing Organization Address City/[facility] Co de Phone Number [facility] [address] [place] [address] * (ABNORMAL) Troponin T, Baseline with 2 Hour/6 Hour Reflex Biomarker Panel (10/09/2024 5:25 PM CDT) Troponin T, Baseline, 5th gen 33(H) <=15 ng/L 10/09/2024 6:22 PM CDT [facility] Blood (Blood, Venous) 10/09/2024 5:25 PM CDT 10/09/2024 5:31 PM CDT Zuri Harvey P.A.-C., M.S. LAB BLOOD TROPONIN Fi nal Result [facility] [address] [place] [address], [facility] STMA [facility] [address] [place] [address] * (ABNORMAL) Basic Metabolic Panel (10/09/2024 5:25 PM CDT) Pathologist [facility] Potassium, P 4.8 3.6 - 5.2 mmol/L [...] M.S. LAB BLOOD ADD-ON Gabriella l Result [facility] [address] [place] [address], [facility] [address] [place] [address] * (ABNORMAL) CBC with Differential, Blood (10/09/2024 [...] M.S. LAB BLOOD ADD-ON Gabriella l Result Performing Organization Address [facility] Co de Phone Number [facility] [address] [place] [address], [facility] [address] [place] [address] DHPM [facility] [address] [place] [address] * ECG 12 Lead (10/09/2024 5:12 PM CDT) Ventricular Rate ECG/Min 63 BPM MUSE NC Interval 170 ms MUSE QRSD Interval 74 ms MUSE QT Interval 392 ms MUSE QTC Interval 401 ms MUSE P [place] 8 degrees MUSE R [place] 34 degrees MUSE T Wave [place] 34 degrees MUSE 10/09/2024 5:12 PM CDT [...] Harvey P.A.-C., M.S. ECG ORDERABLES Final Result Performing Organization Address [facility]/ZIP Co de Phone Number MUSE NA documented in [...] of acetaminophen in 24 hours all sources 3683 (Given - Provider: Molly Massey RCollins.)7957 (Given - Provider: Mariam Geiger R.N.)1208 (Given - Provider: Donita Solis RMakN.)1325 (MAR Hold - Provider: Transfer Provider, Automatic - Reason: Patient not available)1700 (Dose Auto Held - Provider: Transfer Provider, Automatic)1728 (MAR Unhold - Provider: Transfer Provider, Automatic)2120 (Given - Provider: Donita Solis R.N.) 0842 (Given - Provider: Pema AvilaN.)1318 (Given - Provider: Pema ColeN.)1808 (Given - Provider: Janie sOei RMakN.)2324 (Given - Provider: Kerry Caicedo RMakN.) 0802 (Given - Provider: Pema CoronelN.)1223 (Given - Provider: Liat Sam R.N.) aspirin chewable tablet 324 mg (COMPLETED) 324 mg, oral, Once, On Tue10/10/24 at 1400, For 1 dose, Preprocedure (CV) 1332 (Given - Provider: Braulio Chin RMakNMak) aspirin DR tablet 81 mg 81 mg, oral, Daily, First dose on Tue10/11/24 at 1100, Swallow whole. Do NOT crush, chew, or split tablet. 1318 (Given - Provider: Janie Osei RTiffanie) 0802 (Given - Provider: Liat Sam RMakN.) finasteride tablet 5 mg (Proscar) 5 mg, oral, Daily, First dose on Tue10/10/24 at 0900, See tube feeding guidelines for tube feeding administration instructions. 0932 (Given - Provider: Mariam Geiger RMakN.)1325 (MAR Hold - Provider: Transfer Provider, Automatic - Reason: Patient not available)1728 (MAR Unhold - Provider: Transfer Provider, Automatic) 0846 (Given - Provider: Merna Jang RMakN.) 0803 (Given - Provider: Liat Sam RMakN.) metoprolol succinate 24 hr tablet 25 mg (Toprol XL) 25 mg, oral, Daily, First dose on Tue10/10/24 at 0900, Do NOT crush or chew. Tablet may be split on score if needed. 0931 (Given - Provider: Mariam Geiger R.N.)1325 (MAY Hold - Provider: Transfer Provider, Automatic - Reason: Patient not available)172 (MAY Unhold - Provider: Transfer Provider, Automatic) 0842 (Given - Provider: Merna Jang R.N.) 08 (Given - Provider: Pema CoronelN.) oxyCODONE IR tablet 2.5 mg (Roxicodone) (COMPLETED) [...] RTiffanie) 2006 (Given - Provider: Kerry Caicedo RCollins.) sennosides-docusate sodium 8.6-50 mg per tablet 1 tablet (Senokot-S) 1 tablet, oral, 2 times daily, First dose on Tue10/09/24 at 2100, Do not give if patient has diarrhea. 0933 (Given - Provider: Mariam Geiger R.N.)1325 (MAY Hold - Provider: Transfer Provider, Automatic - Reason: Patient not available)172 ([facility] Unhold - Provider: Transfer Provider, Automatic)2049 (Given - Provider: Donita Solis RMakN.) 0841 (Given - Provider: Merna Jang R.N.)2006 (Given - Provider: Kerry Caicedo R.N.) 08 (Given - Provider: Liat Sam RMakNMak) sodium chloride 0.9 % injection 3 mL 3 mL, intravenous, Every 24 hours scheduled, First dose on Tue10/12/24 at 0900, Peripheral Intravenous Catheter and Rapid Infusion Catheter: When no infusion to maintain patency. 0848 (Given During Downtime - Provider: Merna Jang R.N.) 0803 (Given - Provider: Pema CoronelNMak) sulfamethoxazole-trimetho prim 800-160 mg per tablet 1 [...] is less than 8 breaths/minute., Starting on 10/10/24 at 1524, Intraprocedure (CV), Subsequent doses 1527 (Given - Provider: Jannette Otoole RCollins.)1531 (Given - Provider: Jannette Otoole R.N.) fentaNYL [...] period. 0512 (Given - Provider: Desiree Mckeon RMakNMak) midazolam (PF) injection 0.5 mg (Versed) (CANCELED) 0.5 mg, intravenous, Every 2 min PRN, sedation, RASS -1, Starting on Tue10/10/24 at 1524, Intraprocedure (CV), May repeat every 2 minutes for a maximum of 5 mg. Do not give if respiratory rate is less than 8 breaths/minute. 1527 (Given - Provider: Jannette Otoole RMakN.)1531 (Given - Provider: Jannette Otoole RMakN.) midazolam (PF) injection 0.5 mg (Versed) (CANCELED) [...] crush, chew, split or swallow tablet. 1325 ([facility] Hold - Provider: Transfer Provider, Automatic - Reason: Patient not available)1728 ([facility] Unhold - Provider: Transfer Provider, Automatic) polyethylene glycol powder packet 17 g (Miralax) 17 g, oral, Daily PRN, constipation, Starting on Tue10/09/24 at 2026, Ordered sequence of administration: polyethylene glycol, then bisacodyl until BM achieved. Avoid mixing with starch-based thickened liquids. 1325 ([facility] Hold - Provider: Transfer Provider, Automatic - Reason: Patient not available)1728 ([facility] Unhold - Provider: Transfer Provider, Automatic)2228 (Given [...] infusions. documented in this encounter Care Teams [employer] Relationship Specialty Start Date End Date Elsewhere, Pcp PCP - General Internal Medicine 10/09/24 documented as of this encounter
--- OUTSIDE RECORDS SUMMARY | 2024-10-10 13:26 | XMS_ITS | Encounter Summary ---
Author Organization [facility] Address [address] [place] [address] Care Team Providers Care Twill Cutter Name Role Phone Elsewhere, Pcp Primary Care Provider Unavailabl e Reason for Visit * Reason Comments Chest Pain Encounter Details Date Type Department Care Team (Late st Contact Info) Description 10/10/2024 1:26 PM CDT - 10/10/2024 2:41 PM CDT Surgery Division of Cardiovascular Diseases in [place], [place] [address] [place] [address] Grey Gomez M.D. [address] [place] [address] CORONARY ANGIOGRAPHY Social History Tobacco Use Types Packs/Day Years Used Date Smoking Tobacco: Former Smokeless Tobacco: Never Alcohol Use Standard Drinks/Week Comments Yes 3 (1 standard drink = 0.6 oz pur e alcohol) [facility] Utilities Answer Date Recorded In [...] your living situation today? I have a [facility] place to live 10/09/2024 Education Answer Date Recorded What is the highest level of school you have completed or the highest degree you have received? 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 Primary Team: [facility] LEILA [place] Primary Care Providers: Elsewhere, Pcp (General) No [...] CORONARY ANGIOGRAPHY Grey Gomez M.D.Sherafati, Alborz, M.D. [facility] ROMB CCL DISCHARGE DISPOSITION Home or Self Care [1] ACTIVE ISSUES REQUIRING FOLLOW UP Discharge Notes from your Provider Team You were discharged from the [facility] CVD 2 Service. Please identify this service [...] prior to your follow-up appointments, contact the [facility] Faith Doctor at [phone] and ask to speak with the Cardiology 2 Service OUTPATIENT FOLLOW UP Scheduled Appointments 10/16/2024 9:15 AM [facility] URO INTAKE VISIT Admitting/Central Scheduling 10/17/2024 8:30 AM Pmea Rojas M.D. Urology 10/17/2024 9:30 AM LAB BLOOD ANGELLAI CL Shayna Laboratory Medicine 10/17/2024 1:20 PM Alisa Menjivar [...] for ACS, and was admitted to the RST CARD 2 service [...] of this encounter Progress Notes * Adry Gutierres Pharm.D., R.Ph., B[facility]P - 10/12/2024 7:45 AM CDT Pharmacist Progress [...] plan and SCr Adry [facility] Pharm.D., R.Ph., [facility] * Clari Daniel M.D. - 10/11/2024 3:43 [...] bleeding bladder mass. Surrogate Decision Maker: Spouse, Yulissaet. Living Situation Before Admission: Independent at home. Discharge Plan (equipment, therapy, and facility): Disposition planning ongoing Plan discussed with RST CARD 2 Highway Painter Helper, Dr. Marroquin, who was present during coats portions of the evaluation today. Please page the KallikT CARD 2 service pager at [phone] with any questions. Clari Daniel PGY 1 Internal Medicine Personal Pager: [phone] 10/11/24 * Spencer Marroquin M.D. - 10/11/2024 [...] at the ostium of the ramus. The GARDEN WORKER of the right coronary artery receives collaterals [...] He was on his cell phone, asked Pole Lift Operator to return later. PLAN Case Management will [...] MD PGY-3 Urology Urology chief service pager: [phone] from [phone] Emergency call pager: [phone] from [phone] This was discussed with chief urology resident, [...] ongoing Plan discussed with RST CARD 2 Highway Painter Helper, Dr. Marroquin, who was present during coats portions of the evaluation today. Please page the KallikT CARD 2 service pager at [phone] with any questions. Clari Daniel PGY 1 Internal Medicine Personal Pager: [phone] 10/10/24 * Michaelle Nicole R.N. - 10/10/2024 10:46 AM CDT SUBJECTIVE Attempted to see patient to address discharge planning. OBJECTIVE Patient not seen at this time. ASSESSMENT Unable to complete assessment as patient was not able to participate in assessment at this time. PLAN Case Management will attempt to see patient at a later time, when available. * Adry Gutierres Pharm.D., R.Ph., [facility] - 10/10/2024 7:09 AM CDT Pharmacist Progress [...] Spencer Marroquin M.D. CT CT Job ID: [id number] * Clarissa Calle Sr., M.D. - 10/09/2024 [...] for the past couple of months. The speeder hand recommended that he first fix any anginal [...] he no longer needed to be on termite control technician anticoagulation. Patient has a history of hematuria [...] Hernandez Samayoa was being seen at the [facility] cardiology out patient clinic for pre-operative consultation on his upcoming TURBT with bilateral stent placement planed forJuly 2024. During the visit he mentioned to the speeder hand's that he had been having on and [...] on his description of his symptoms a speeder hand at the outpatient clinic were concerned for unstable angina and [facility] and possible urgent coronary Angiography. ED course: Upon arrival to [facility] ER Mr. Ng denied any chest pain, [...] stenosis of small OM1 and distal RCA GARDEN WORKER. Social History: Former Smoker, quit 25 - [...] & Screen Expiration 10/12/2024 23:59 Testing Location [place] CBC without Differential Collection Time: 10/09/24 11:30 [...] patient. However during his visit to the [facility] cardiology outpatient clinic regarding his upcoming [...] Clarissa Calle MD Internal Medicine, PGY-1 Pager: [phone] * Mario Musa M.D. - 10/09/2024 7:32 PM CDT [facility] 2 SENIOR TALENT SPECIALIST SUPERVISORY ADMISSION NOTE SUBJECTIVE Mr. Samayoa is a 78 y.o. year old male who initially presented in the outpatient setting for a preanesthetic medical evaluation for a surgical evaluation for a bladder mass but was describing worsening chest discomfort concerning for ACS, and is now admitted to the [facility] 2 service for further management and cares. [...] and diffuse RCA disease with evidence of GARDEN WORKER (Outside CT chest/coronary angiogram 01/28/2020) #. Chronic [...] ACS, and is now admitted to the [facility] CARD 2 service for further management and [...] formally discussed with the RST CARD 2 Highway Painter Helper, Spencer Arenas M.D., within 24 hours. Please [...] 78 y.o. 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 Handouts provided: Bathroom Safety Equipment [id number], Preventing Falls CV1525-77, Home Safety Suggestions IP1156, Adaptive Equipment Catalog/List of Vendors Team Communication: [...] Assistance with medication set up/administration, Assistance with retail financial analyst, Assistance with transportation, Assistance with shopping, Assistance [...] safety with higher complexity tasks such as retail financial analyst, shopping, meal preparation, and driving. Due to [...] Surgeon: Grey Gomez M.D.; Location: [facility] COLONOSCOPY pt thinks hes had 2 TONSILLECTOMY WISDOM TOOTH EXTRACTION Cosigned by Aye Del Rosario, O.TMak, O.T.D. at 10/12/2024 4:22 PM CDT Associated attestation - Aye Del Rosario O.T., O.T.D. - 10/12/2024 4:22 PM CDT This therapist has reviewed all documentation and supervised today's session. This therapist agreeswith the plan of care developed in collaboration with the patient. * Rico Shelton P.T., SuzettePMarianna - 10/12/2024 9:28 AM CDT Physical Therapy Inpatient Evaluation/Treatment SUBJECTIVE Patient's Name: Hernandez Samayoa Referring/Attending Provider: Iva Ascencio M.D. Reason for Referral: Physical Therapy Evaluate and Treat Onset Date: 10/09/2024 Pertinent Medical / Surgical History: Medical History[1] Surgical History[2] History of Present Illness: Hernandez Samayoa is a 78 y.o. 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 Vital Signs: HR [...] Tolerates 10-20 minutes of activity Outcome Measures: [facility] Inpatient Short Form: -[facility] Basic Mobility (V.2) How much help [...] 3-5 steps with a railing?: A Little -[facility] Basic Mobility (V.2) Raw Score: 22 -[facility] Basic Mobility (V.2) Standardized Score: 47.4 Interpretation: [...] Surgeon: Grey Gomez M.D.; Location: [facility] COLONOSCOPY pt thinks hes had 2 TONSILLECTOMY WISDOM TOOTH EXTRACTION * Carissa Perez RMakNMak - 10/11/2024 1:59 PM CDTAssociated Order(s): IP CONSULT TO CARE MANAGEMENT; IP CONSULT TO CARE MANAGEMENT Discharge Planning Assessment SUBJECTIVE Assessment Information Referral Data Referral Source: Early Screen for Discharge Planning Referral Name: ESDP score 14 Previous Assessment: No In Home Tutor Services Used: No Primary Language: Albanian In Home Tutor Services Used: No Person(s) Present During Interview: [...] Care Physician Family Medicine 10/09/24 Address: [address] [facility] [address] Additional Resources: Additional Services: NA Anticipated Needs Functional Status: None Assistive Devices: None Anticipated Modifications to the Patient's Home: None Transportation Needs: Support from family Does the patient need discharge transport arranged?: No Phone Number for Ride/Caregiver: Jose [phone] Anticipated Discharge Destination: Home or Self Care Referrals Initiated: None physiotherapy practice manager provided Care Management Brochure ([id number]), information regarding the dismissal process, and the Senior Linkage Line ([place] Board on Aging) handout. ASSESSMENT / PLAN ASSESSMENT: The physiotherapy practice manager met with Hernandez Samayoa to discuss his current hospitalization and home goingneeds. The patient was accompanied by girlfriend, Roderick. The patient was a reliable historian. The role of physiotherapy practice manager was reviewed. The patient reviewed his prior [...] Patient is requesting information regarding private pay [facility]. Patient would like PT/OT assessment. Service [...] ready. Support will be provided by self. physiotherapy practice manager recommendations include: discussing needed assistance with family, [...] course) Transportation upon dismissal will be Jose. physiotherapy practice manager encouraged the patient to reach out with [...] this time Estimated Needs: Total Calorie Needs: 9338-2221 calories/day Method to Estimate Energy Needs: kcal/kg [...] about patient's nutritional care please contact pager [phone] on weekdays 07:30-16:00 or [phone] on weekends/holidays ([facility]) [phone]. [1] Past Medical History: Diagnosis Date Apnea [...] 10/10/24 0933 Cosigned by Valorie Maldonado RDN, [place]CHITA at 10/11/2024 7:45 AM CDT documented in this encounter Nursing Notes * Liat Sam RMakN. - 10/12/2024 3:58 PM CDT Shift [...] family. Problem: Risk for Compromised Skin Integrity-Other Funeral Home Manager(s) Goal: Risk for Compromised Skin Integrity-Other Funeral Home Manager(s) 10/12/20241557 by Liat Sam, R.N. Outcome: Adequate [...] Goal: Absence of infection during hospitalization 10/12/2024 155 by Liat Sam, R.N. Outcome: [...] improve skin integrity. 10/12/20241557 by Liat Sam R.NMak Outcome: Adequate for Discharge Problem: Risk for Compromised Skin Integrity-Gordon Activity Score 3 Goal: Achieve optimal activity to maintain or improve skin integrity. 10/12/2024 155 by Liat Sam RMakNMak Outcome: Adequate for Discharge Problem: SAFETY ADULT - RISK FOR FALL AND OR FALL INJURY Goal: Patient remains free from fall/fall injury 10/12/20241557 by Liat Sam RMakNMak Outcome: Adequate for Discharge Problem: CARDIOVASCULAR - ADULT Goal: Maintains optimal cardiac output and hemodynamic stability 10/12/20241557 by Liat Sam R.N. Outcome: Adequate for Discharge Problem: METABOLIC/FLUID AND ELECTROLYTES - ADULT Goal: Hemodynamic stability and optimal renal function maintained 10/12/20241557 by Liat Sam RMakNMak Outcome: Adequate for Discharge * Janie Osei [...] 2:51 PM CDT MEDICAL ONCOLOGY CONSULT SERVICE: [facility] NOTE Primary Service: RST CARD 2 Local Oncologist: No care valve steamer to display [facility] Oncologist(s): No care valve steamer to display Reason(s) for consult: New/suspected cancer [...] any further questions or concerns arise at [phone](service pager), M-F 7:00 a.m. to 7:00 p.m, [facility] [place] [address] Painter Helper on Consult service. Elizabeth Kennedy APRN, C.N.PMak, M.S.N. * Sakshi Ochoa R.N. - 10/11/2024 4:36 AM CDT Problem: Risk for Compromised Skin Integrity-Other Funeral Home Manager(s) Goal: Risk for Compromised Skin Integrity-Other Funeral Home Manager(s) Note: RN assess for pain and adjacent [...] BMI 26.12 kg/m?? * Janie Pal R.N., [facility]- - 10/10/2024 8:30 AM CDT Proactive Integration of Mental Health Care in Cardiovascular Disease Screening Note Hernandez Samayoa's chart was screened by a member of the Psychiatry Proactive Consultation based ontheir history and/or current presentation. Hernadnez Samayoa is noted to have the following [...] screening, we have the following recommendations: [] cleaner signs visit [x] Discuss with primary team to [...] education/support-primary team to place order [] Recommend Editor Department Services consultation- primary nursing to place order [] Recommend social work/substance use consultation -primary team to place order [] Recommend outpatient psychiatric follow-up - primary team to place psychiatric consult order to coordinate [] No acute psychiatric intervention needed; please reach out if questions or concerns. [] Other [place] [phone] with questions. Janie Pal R.N., [facility] 10/10/2024 * Desiree Mckeon R.N. - [...] patient was recommended to present to the [facility] ED to expedite hospital admission for urgent PCI. He denies any current chest pain here in the ED. He is currently anticoagulated on Eliquis. He denies any fever, cough, hemoptysis, increased edema, or shortness of breath. There are no other complaints at this time. 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 Yumi Skinner R.N. 10/09/241703 documented in this encounter Miscellaneous Notes * [...] for ACS, and was admitted to the [facility] CARD 2 service for further management and [...] 9:30 AM CDT Appointment Department of Radiology, [facility], in [place], [place] [address] [place] [phone] Alisa Menjivar M.D. [address] [place] [address] Discharge Disposition: Home or Self Care 11/12/2024 2:15 PM CDT Office Visit Department of Cardiovascular Medicine in [place], [place] [address] [place] [address] Elisa Alva M.D. [address] [place] [phone] 11/19/2024 1:00 PM CDT Clinical Communication Virtual Review in [place], [place] [address] [place] [address] 11/20/2024 8:00 AM CDT Clinical Support Department of Oncology in [address] [address] Polo Dwyer M.D. [address] [place] [address] China Parikh M.S.W., L.I.C.S.W. [address] [place] [phone] 11/20/2024 10:50 AM CDT Lab Department of Laboratory Medicine and Pathology, [facility] in [address] [address] Alisa Menjivar M.D. [address] [place] [address] 11/20/2024 1:30 PM CDT Office Visit Department of Oncology in [address] [address] Alisa Menjivar M.D. [address] [place] [phone] 11/20/2024 3:00 PM CDT Infusion Department of Oncology in [address] [address] Alisa Menjivar M.D. [address] [place] [phone] 11/27/2024 7:30 AM CDT Lab Department of Laboratory Medicine and Pathology, [facility], in [address] [address] Alisa Menjivar M.D. [address] [place] [address] 11/27/2024 9:30 AM CDT Infusion Department of Oncology in [place], [place] [address] [place] [address] Alisa Menjivar M.D. [address] [place] [address] documented as of this encounter Procedures Procedure [...] Renal Function Panel (10/12/2024 1:08 PM CDT) [facility] Potassium, S 5.0 3.6 - 5.2 mmol/L [...] M.D. LAB BLOOD ADD-ON Final Res ult [facility] [address] [place] [address], [facility] DTL [facility] [address] [place] [address] * (ABNORMAL) CBC without Differential (10/12/2024 1:08 [...] M.D. LAB BLOOD ADD-ON Final Res ult [facility] [address] [place] [address], [facility] DTL [facility] [address] [place] [address] * CT Lymph Node Biopsy (10/11/2024 12:52 [...] series 302, image 166. A total of lzs94-nzzdy cores were obtained from the lymph node [...] series 302, image 166. A total of drd33-spksd cores were obtained from the lymph node [...] features. Immunohistochemic al stains were performed at [facility] (block A1). 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 Digital imaging was used in the diagnostic assessment of this case. (A) 10/15/2024 12:58 PM CDT DTL Tissue (Pelvis, Left) 10/11/2024 11:32 AM CDT us Mila Burgess M.D. LAB SURG PATH ORDERABLES F inal Result [facility] [address] [place] [address], [facility] DTL [address] [facility] [address] [place] [address] * (ABNORMAL) Renal Function Panel (10/11/2024 8:38 [...] M.D. LAB BLOOD [place] [address], [facility] [address] [place] [address] * (ABNORMAL) CBC without Differential (10/11/2024 8:38 [...] M.D. LAB BLOOD ADD-ON Final Res ult [facility] [address] [place] [address], [facility] [address] [place] [address] * CORONARY ANGIOGRAPHY (10/10/2024 4:18 PM CDT) Anatomical Region Laterality Modality X-Ray Angiograph y 10/10/2024 3:43 PM CDT Narrative 10/10/2024 4:58 PM CDT For the complete report, see the Order-Level Documents. PROCEDURE TYPES 1. CORONARY ANGIOGRAPHY FINAL DIAGNOSIS 1. Severe coronary artery atherosclerosis 2. GARDEN WORKER (Chronic Total Occlusion) 3. Coronary artery collateral [...] disease as well. There is an RCA GARDEN WORKER with good left to right collaterals. Discussed [...] left anterior descending artery and second septal furnace worker. The right posterolateral segment is 99% obstructed [...] DIAGNOSIS 1. Severe coronary artery atherosclerosis 2. GARDEN WORKER (Chronic Total Occlusion) 3. Coronary artery collateral [...] LCx diseaseas well. There is an RCA GARDEN WORKER with good left to right collaterals.Discussed with [...] distal left anterior descendingartery and second septal furnace worker. The right posterolateral segment is 99% obstructed by a discrete lesion.Receives collaterals from the distal circumflex artery, leftatrioventricular groove branch and ramus intermedius segment. RADIATION DOSE DATA Procedure cumulative skin dose (mGy): 569.57 Procedure cumulative dose area product (Gy-cm2): 45.62 Fluoro Time (Min): 6.92 CONTRAST DOSE DATA iohexoL 350 mg iodine/mL solution (Omnipaque): 60mL For the complete report, see the Order-Level Documents. us Guicho Duggan M.D. CV CARDIAC CATH PROCEDURES [...] M.D. LAB URINE ORDERABLES Final Resu lt [address] [address], [facility] [place] [address] * (ABNORMAL) Dipstick, Urine (10/10/2024 5:41 AM [...] ORDERABLES Final Resu lt Performing Organization Address City/[facility]/ZIP Co de Phone Number [facility] [address] [place] [address] * pH, Urine (10/10/2024 5:41 AM CDT) pH, U 5.8 4.5 - 8.0 10/10/2024 6:1 9 AM CDT DT Urine 10/10/2024 5:41 AM CDT 10/10/2024 5:58 AM CDT us Mario Musa M.D. LAB URINE ORDERABLES Final Resu lt Performing Organization Address [facility]/ZIP Co de Phone Number [facility] 200 [place], [place] [address] [place] [address] 200 [place] [address] * Osmolality, Urine (10/10/2024 5:41 AM CDT) Osmolality, U 215 150 - 1150 mOsm/kg 10/10/2024 6:19 AM CDT DT Urine 10/10/2024 5:41 AM CDT 10/10/2024 5:58 AM CDT us Mario Musa M.D. LAB URINE ORDERABLES Final Resu lt Performing Organization Address City/[facility]/ZIP Co de Phone Number [facility] [address] [place] [address] * (ABNORMAL) Urinalysis, with Microscopic: Urine, Catheter [...] Burgess M.D. LAB URINE ORDERABLES Final Result [facility] [address] [place] [address], [facility] 200 [place] [address] * ECG 12 Lead (10/10/2024 4:13 AM CDT) Ventricular Rate ECG/Min 58 BPM MUSE IA Interval 168 ms MUSE QRSD Interval 76 ms MUSE QT Interval 418 ms MUSE QTC Interval 410 ms MUSE P [place] 79 degrees MUSE R [place] 24 degrees MUSE T Wave [place] 17 degrees MUSE 10/10/2024 4:13 AM CDT [...] and management can be found on the [employer] site. Link https://Car in the Cloudyoexpert.[facility].org/topic/clinical-answers/cnt-81576479/cpm-204 64406 Procedure Note Judy Ibrahim M.D. - 10/10/2024 [...] thrombosis and management can be found on theAskU.S. Nursing Corporation site. Linkhttps://[email or web address].org/topic/clinical-answers/cnt-68369561/cpm -2049 1725 IMPRESSION: 1. Negative for acute [...] Function Panel (10/09/2024 11:30 PM CDT) Pathologist [facility] Potassium, S 4.5 3.6 - 5.2 [...] ADD-ON Final Res ult Performing Organization Address City/[facility]/ZIP Co de Phone Number [facility] [address] D[place] [facility] [address] [place] [address] * (ABNORMAL) Troponin T, 5th Generation (10/09/2024 11:30 PM CDT) Pathologist [facility] Troponin T, 5th gen 31(H) <=15 ng/L 10/09/2024 11:53 PM CDT ST[facility] Blood (Blood, Venous) 10/09/2024 11:30 PM CDT 10/09/2024 11:37 PM CDT Mila Burgess M.D. LAB BLOOD ADD-ON Final Res ult [facility] [address] [place] [address] * (ABNORMAL) CBC without Differential (10/09/2024 11:30 PM CDT) Pathologist [facility] Hemoglobin 9.5(L) 13.2 - 16.6 g/dL 10/10/2024 [...] M.D. LAB BLOOD [place] [address], [place] [address] * Type and Screen (with Reflex Antibody ID) (10/09/2024 11:25 PM CDT) Pathologist [facility] ABORh O Neg Not applicable 10/10/2024 1:17 [...] ORDERA BLES Final Result Performing Organization Address [facility] de Phone Number [facility] [facility] [address] [place] [address], [place] STRM [facility] [address] [place] [address] * ECG 12 Lead (10/09/2024 10:00 PM CDT) Ventricular Rate ECG/Min 58 BPM MUSE IA Interval 172 ms MUSE QRSD Interval 80 ms MUSE QT Interval 412 ms MUSE QTC Interval 404 ms MUSE P [place] 41 degrees MUSE R [place] 38 degrees MUSE T Wave [place] 33 degrees MUSE 10/09/2024 10:0 0 PM [...] ORDERABLES Final Resu lt Performing Organization Address [facility] Co de Phone Number MUSE NA * ECG 12 Lead (10/09/2024 8:57 PM CDT) Ventricular Rate ECG/Min 63 BPM MUSE IA Interval 166 ms MUSE QRSD Interval 76 ms MUSE QT Interval 398 ms MUSE QTC Interval 407 ms MUSE P [place] 24 degrees MUSE R [place] 7 degrees MUSE T Wave [place] 0 degrees MUSE 10/09/2024 8:57 PM CDT [...] M.S. LAB BLOOD TROPONIN Fi nal Result [facility] [address] [place] [address], [facility] STMA [facility] [address] [place] [address] * DX Chest AP or PA and [...] M.S. LAB BLOOD ADD-ON Gabriella l Result [facility] [address] [place] [address], [facility] [address] [place] [address] * Prothrombin Time (PT) (10/09/2024 5:25 PM CDT) Prothrombin Time, P 12.4 9.4 - 12.5 sec 10/09/2024 5:38 PM CDT STMA INR 1.1 0.9 - 1.1 10/09/2024 5:38 PM CDT [facility] Comment: ----ADDITIONAL INFORMATION---- Standard intensity warfarin therapeutic range: 2.0 to 3.0 High intensity warfarin therapeutic range: 2.5 to 3.5 Blood (Blood, Venous) 10/09/2024 5:25 PM CDT 10/09/2024 5:31 PM CDT Zuri Harvey P.A.-C., M.S. LAB BLOOD ADD-ON Gabriella l Result Performing Organization Address City/[facility]/ZIP Co de Phone Number [facility] [address] [place] [address] * (ABNORMAL) Troponin T, Baseline with 2 Hour/6 Hour Reflex Biomarker Panel (10/09/2024 5:25 PM CDT) [facility] Troponin T, Baseline, 5th gen 33(H) <=15 ng/L 10/09/2024 6:22 PM CDT [facility] Blood (Blood, Venous) 10/09/2024 5:25 PM CDT 10/09/2024 5:31 PM CDT us Zuri Harvey P.A.-C., M.S. LAB BLOOD TROPONIN Fi nal Result Performing Organization Address [facility]/ZIP Co de Phone Number [facility] [address] [place] [address] * (ABNORMAL) Basic Metabolic Panel (10/09/2024 5:25 PM CDT) [facility] Potassium, P 4.8 3.6 - 5.2 mmol/L [...] M.S. LAB BLOOD ADD-ON Gabriella l Result [facility] [address] [place] [address], [facility] [address] [place] [address] * (ABNORMAL) CBC with Differential, Blood (10/09/2024 5:25 PM CDT) Pathologist [facility] Hemoglobin 9.9(L) 13.2 - 16.6 g/dL 10/09/2024 [...] M.S. LAB BLOOD ADD-ON Gabriella l Result [facility] [address] [place] [address], [facility] STMA [facility] [address] [place] [address] [facility] [address] [place] [address] * ECG 12 Lead (10/09/2024 5:12 PM CDT) Ventricular Rate ECG/Min 63 BPM MUSE IA Interval 170 ms MUSE QRSD Interval 74 ms MUSE QT Interval 392 ms MUSE QTC Interval 401 ms MUSE P [place] 8 degrees MUSE R [place] 34 degrees MUSE T Wave [place] 34 degrees MUSE 10/09/2024 5:12 PM CDT [...] Geiger R.N.)1208 (Given - Provider: Donita Solis RCollins.)1325 (MAR Hold - Provider: Transfer Provider, Automatic - Reason: Patient not available)1700 (Dose Auto Held - Provider: Transfer Provider, Automatic)1728 (MAR Unhold - Provider: Transfer Provider, Automatic)2120 (Given - Provider: Donita Solis RCollins.) 0842 (Given - Provider: Merna Jang R.N.)1318 (Given - Provider: Janie Osei R.N.)1808 (Given - Provider: Janie Osei R.N.)2324 (Given - Provider: Kerry Caicedo R.N.) 0802 (Given - Provider: Liat Sam R.N.)1223 (Given - Provider: Pema CoronelN.) aspirin chewable tablet 324 mg (COMPLETED) 324 mg, oral, Once, On Tue10/10/24 at 1400, For 1 dose, Preprocedure (CV) 1332 (Given - Provider: Braulio Chin RMakN.) aspirin DR tablet 81 mg 81 mg, oral, Daily, First dose on Tue10/11/24 at 1100, Swallow whole. Do NOT crush, chew, or split tablet. 1318 (Given - Provider: Janie Osei RMakN.) 0802 (Given - Provider: Pema CoronelN.) finasteride tablet 5 mg (Proscar) 5 mg, oral, Daily, First dose on Tue10/10/24 at 0900, See tube feeding guidelines for tube feeding administration instructions. 0932 (Given - Provider: Mariam Geiger R.N.)1325 (MAR Hold - Provider: Transfer Provider, Automatic - Reason: Patient not available)1728 (MAR Unhold - Provider: Transfer Provider, Automatic) 0846 (Given - Provider: Merna Jang R.N.) 0803 (Given - Provider: Liat Sam RMakN.) [...] R.N.) 0802 (Given - Provider: Liat Sam RCollins.) oxyCODONE IR tablet 2.5 mg (Roxicodone) (COMPLETED) 2.5 mg, oral, Once, On Tue10/10/24 at 0515, For 1 dose 0522 (Given - Provider: Desiree Mckeon RMakN.) rosuvastatin tablet 20 mg (Crestor) 20 mg, oral, Daily at bedtime, First dose on Tue10/10/24 at 2100 1325 (MAR Hold - Provider: Transfer Provider, Automatic - Reason: Patient not available)1728 (MAR Unhold - Provider: Transfer Provider, Automatic)2049 (Given [...] R.N.)2006 (Given - Provider: Kerry Caicedo R.N.) 0802 (Given - Provider: Pema CoronelNMak) sodium chloride 0.9 % injection 3 mL [...] 0009 (New Bag - Provider: Desiree Mckeon RMakNMak)0350 (Stopped - Provider: Desiree Mckeon RMakNMak) PRN Medication Order 10/10/2024 10/11/2024 10/12/2024 [id number] [...] 1232, Intra-Op 1232 (Given - Provider: Ashlyn Mendnehall M.D.) lidocaine HCL 2 % topical jelly [...] min PRN, sedation, RASS -1, Starting on 10/10/24 at 1524, Intraprocedure (CV), May repeat every [...] crush, chew, split or swallow tablet. 1325 ([facility] Hold - Provider: Transfer Provider, Automatic - Reason: Patient not available)1728 ([facility] Unhold - Provider: Transfer Provider, Automatic) polyethylene glycol powder packet 17 g (Miralax) 17 g, oral, Daily PRN, constipation, Starting on Tue10/09/24 at 2026, Ordered sequence of administration: polyethylene glycol, then bisacodyl until BM achieved. Avoid mixing with starch-based thickened liquids. 1325 ([facility] Hold - Provider: Transfer Provider, Automatic - Reason: Patient not available)1728 ([facility] Unhold - Provider: Transfer Provider, Automatic)2228 (Given - Provider: Donita M Solis, R.N.) sodium chloride 0.9 % injection [...] infusions. 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
--- OUTSIDE RECORDS SUMMARY | 2024-10-10 22:25 | XMS_ITS | Encounter Summary ---
Author Organization [facility] Address [address] [place] [address] Care Team Providers Care Racetrack Steward Name Role Phone Elsewhere, Pcp Primary Care [...] Recorded In the past 12 months has [facility] [employer], gas, oil, or water [employer] threatened to shut off services in your [...] your living situation today? I have a [facility] place to live 10/09/2024 Education Answer Date Recorded What is the highest level of school you have completed or the highest degree you have received? 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 [address] [place] [phone] Discharge Disposition: Home or Self Care 11/12/2024 2:15 PM CDT Office Visit Department of Cardiovascular Medicine in [place], [place] [address] [place] [phone] Elisa Alva M.D. [address] [place] [phone] 11/19/2024 1:00 PM CDT Clinical Communication Virtual Review in [place], [place] 200 [place] [phone] 11/20/2024 8:00 AM CDT Clinical Support Department of Oncology in [address] [phone] Polo Dwyer M.D. [address] [place] [phone] China Parikh M.S.Onur., L.I.C.S.W. [address] [place] [phone] 11/20/2024 10:50 AM CDT Lab Department of Laboratory Medicine and Pathology, [address] [phone] Alisa Menjivar M.D. [address] [place] [phone] 11/20/2024 1:30 PM CDT Office Visit Department of Oncology in [address] [phone] Alisa Menjivar M.D. [address] [place] [phone] 11/20/2024 3:00 PM CDT Infusion Department of Oncology in [address] [phone] Alisa Menjivar M.D. [address] [place] [phone] 11/27/2024 7:30 AM CDT Lab Department of Laboratory Medicine and Pathology, [facility] in [address] [phone] Alisa Menjivar M.D. [address] [place] [phone] 11/27/2024 9:30 AM CDT Infusion Department of Oncology in [place], [place] [address] [place] [phone] Alisa Menjivar M.D. [address] [place] [phone] documented as of this encounter Procedures Procedure [...] on filedocumented in this encounter Care Teams Racetrack Steward Relationship Specialty Start Date End Date Elsewhere, Pcp PCP - General Internal Medicine 10/09/24 documented as of this encounter
--- OUTSIDE RECORDS SUMMARY | 2024-10-17 08:30 | XMS_ITS | Encounter Summary ---
Author Organization [facility] Address [address] [place] [address] Care Team Providers Care Guest Service Agent Name Role Phone Elsewhere, Pcp Primary Care Provider Unavailabl e Reason for Visit * Outpatient (Routine) - Closed Specialty Diagnoses / Procedures Referred By Keiko latif Referred To Contact Urology Diagnoses Mass Bladder Shyam Musa M.D. 200 [place] [address] Phone: tel: fax: [facility] Referral ID Status Reason Start Date Expiration Date Visits Re quested Visits Authorized [id number] Closed 09/04/2024 03/06/2026 1 1 Encounter Details Date Type Department Care Team (Latest Contact Info) Description 10/17/2024 8:30 AM CDT Comprehensive Visit Department of Urology in [place], [place] [address] [place] [address] Pema Rojas M.D. [address] [place] [phone] Malignant Neoplasm Of Bladder (HCC) (Primary Dx) Social History Tobacco Use Types Packs/Day Years Used Date Smoking Tobacco: Former Smokeless Tobacco: Never Alcohol Use Standard Drinks/Week Comments Yes 3 (1 standard drink = 0.6 oz pur e alcohol) [facility] Utilities Answer Date Recorded In the past 12 months has [employer], gas, oil, or water company threatened to [...] your living situation today? I have a [facility] place to live 10/09/2024 Education Answer Date Recorded What is the highest level of school you have completed or the highest degree you have received? 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 Given concern for metastatic [...] retention gross hematuria. Patient was discharged from [facility] on 10/12, and presents today for [...] with and plan was discussed with supervising identity management consultant, Dr. Rojas. Sailaja Lassiter M.D. * [...] Encounters Date Type Department Care Team (Late Contact Info) Description 11/12/2024 9:30 AM CDT Appointment Department of Radiology, [facility], in [address] [phone] Alisa Menjivar M.D. [address] [place] [phone] Discharge Disposition: Home or Self Care 11/12/2024 2:15 PM CDT Office Visit Department of Cardiovascular Medicine in [place], [place] [address] [place] [phone] Elisa Alva M.D. [address] [place] [phone] 11/19/2024 1:00 PM CDT Clinical Communication Virtual Review in [place], [place] 200 [place] [phone] 11/20/2024 8:00 AM CDT Clinical Support Department of Oncology in [address] [phone] Polo Dwyer M.D. [address] [place] [phone] China Parikh M.S.W., L.I.C.S.W. [address] [place] [phone] 11/20/2024 10:50 AM CDT Lab Department of Laboratory Medicine and Pathology, [facility], in [place], [place] [address] [place] [phone] Alisa Menjivar M.D. [address] [place] [phone] 11/20/2024 1:30 PM CDT Office Visit Department of Oncology in [address] [phone] Alisa Menjivar M.D. [address] [place] [address] 11/20/2024 3:00 PM CDT Infusion Department of Oncology in [place], [place] [address] [place] [address] Alisa Menjivar M.D. [address] [place] [phone] 11/27/2024 7:30 AM CDT Lab Department of Laboratory Medicine and Pathology, [facility], in [place], [place] [address] [place] [address] Alisa Menjivar M.D. [address] [place] [phone] 11/27/2024 9:30 AM CDT Infusion Department of Oncology in [place], [place] [address] [place] [address] Alisa Menjivar M.D. [address] [place] [phone] documented as of this encounter Visit Diagnoses Diagnosis Malignant Neoplasm Of Bladder (HCC)- Primary documented in this encounter Care Teams Guest Service Agent Relationship Specialty Start Date End Date Elsewhere, Pcp PCP - General Internal Medicine 10/09/24 documented as of this encounter
--- OUTSIDE RECORDS SUMMARY | 2024-10-17 09:21 | XMS_ITS | Encounter Summary ---
Author Organization [facility] Address [address] [place] [address] Care Team Providers Care Tar Leveler Name Role Phone Elsewhere, Pcp Primary Care Provider Unavailabl e Encounter Details Date Type Department Care Team (Latest Contact Info) Description 10/17/2024 9:21 AM CDT - 10/17/2024 11:59 PM CDT Hospital Encounter Department of Laboratory Medicine and Pathology, [facility] in [place], [place] [address] [place] [address] Shyam Musa M.D. [address] [place] [address] Mass Bladder Discharge Disposition: Home or Self Care Social History Tobacco Use Types Packs/Day Years Used Date Smoking Tobacco: Former Smokeless Tobacco: Never Alcohol Use Standard Drinks/Week Comments Yes 3 (1 standard drink = 0.6 oz pur e alcohol) [facility] Utilities Answer Date Recorded In the [...] your living situation today? I have a [facility] place to live 10/09/2024 Education Answer Date Recorded What is the highest level of school you have completed or the highest degree you have received? 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 [address] [place] [phone] Discharge Disposition: Home or Self Care 11/12/2024 2:15 PM CDT Office Visit Department of Cardiovascular Medicine in [place], [place] [address] [place] [phone] Elisa Alva M.D. [address] [place] [phone] 11/19/2024 1:00 PM CDT Clinical Communication Virtual Review in [place], [place] 200 [place] [address] 11/20/2024 8:00 AM CDT Clinical Support Department of Oncology in [address] [phone] Polo Dwyer M.D. [address] [place] [phone] China Parikh, M.S.W., L.I.C.S.W. [address] [place] [phone] 11/20/2024 10:50 AM CDT Lab Department of Laboratory Medicine and Pathology, [facility], in [address] [phone] Alisa Menjivar M.D. [address] [place] [phone] 11/20/2024 1:30 PM CDT Office Visit Department of Oncology in [place], [place] [address] [place] [phone] Alisa Menjivar M.D. [address] [place] [phone] 11/20/2024 3:00 PM CDT Infusion Department of Oncology in [place], [place] [address] [place] [phone] Alisa Menjivar M.D. [address] [place] [phone] 11/27/2024 7:30 AM CDT Lab Department of Laboratory Medicine and Pathology, [facility] in [place], [place] [address] [place] [phone] Alisa Menjivar M.D. [address] [place] [phone] 11/27/2024 9:30 AM CDT Infusion Department of Oncology in [place], [place] [address] [place] [phone] Alisa Menjivar M.D. [address] [place] [phone] documented as of this encounter Procedures Procedure [...] Musa M.D. LAB BLOOD ADD-ON Final Result [facility] [address] [place] [address], [facility] DTL [facility] [address] [place] [address] [facility] [address] [place] [address] * (ABNORMAL) Comprehensive Metabolic Panel (10/17/2024 9:48 AM CDT) [facility] Potassium, S 4.9 3.6 - 5.2 mmol/L [...] Musa M.D. LAB BLOOD ADD-ON Final Result [facility] [address] [place] [address], [facility] [address] [place] [address] documented in this encounter Visit Diagnoses Diagnosis Mass Bladder documented in this encounter Care Teams Tar Leveler Relationship Specialty Start Date End Date Elsewhere, Pcp PCP - General Internal Medicine 10/09/24 documented as of this encounter
--- OUTSIDE RECORDS SUMMARY | 2024-10-17 13:20 | XMS_ITS | Encounter Summary ---
Author Organization [facility] Address [address] [place] [address] Care Team Providers Care Manager Technical Services Name Role Phone Elsewhere, Pcp Primary Care Provider Unavailabl e Reason for Referral * Outpatient (Routine) Specialty Diagnoses / Procedures Referred By Keiko latif Referred To Contact Oncology Diagnoses Malignant Neoplasm Of Bladder (HCC) Medication Therapy Group Home Not Anticoagulant Pediatric Dietician Current Drug Therapy, Chemotherapy Alisa Menjivar M.D. [address] [place] [address] Phone: tel: fax: [facility] Referral ID Status Reason Start Date Expiration Date Visits Re quested Visits Authorized * Medication Prior Authorization - Closed Specialty Diagnoses / Procedures Referred By Keiko latif Referred To Contact Diagnoses Malignant Neoplasm Of Bladder (HCC) Polo Dwyer M.D. [address] [place] [address] Phone: tel: fax: Referral ID Status Reason Start Date Expiration Date Visits Re quested Visits Authorized [id number] Closed 1 1 * Specialty Diagnoses / Procedures Referred By Keiko latif Referred To Contact Diagnoses Malignant Neoplasm Of Bladder (HCC) Medication Therapy Pediatric Dietician Not Anticoagulant Group Home Current Drug Therapy, Chemotherapy Polo Dwyer M.D. [address] [place] [address] Phone: tel: fax: [facility] Referral ID Status Reason Start Date Expiration Date Visits Re quested Visits Authorized * Outpatient (Routine) - Authorized Specialty Diagnoses / Procedures Referred By Keiko latif Referred To Contact Social Work Diagnoses Malignant Neoplasm Of Bladder (HCC) Polo Dwyer M.D. [address] [place] [phone] Phone: tel: fax: [facility] Referral ID Status Reason Start Date Expiration Date V isits Requested Visits Authorized [id number] Authorized 10/17/2024 04/18/2026 1 1 Reason for Visit * Outpatient (Routine) - Closed Specialty Diagnoses / Procedures Referred By Keiko latif Referred To Contact Medical Oncology / Oncology Diagnoses Mass Bladder Shyam Musa M.D. [address] [place] [address] Phone: tel: fax: [facility] Referral ID Status Reason Start Date Expiration Date Visits Re quested Visits Authorized [id number] Closed 09/04/2024 03/06/2026 1 1 Encounter Details Date Type Department Care Team (Latest Contact Info) Description 10/17/2024 1:20 PM CDT Comprehensive Visit Department of Oncology in [place], [place] [address] [place] [phone] Alisa Menjivar M.D. [address] [place] [phone] Malignant Neoplasm Of Bladder (HCC) (Primary Dx); Other Group Home Current Drug Therapy; Medication Therapy Pediatric Dietician Not Anticoagulant; Group Home Current Drug Therapy, Chemotherapy Social History [...] degree you have received? 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 PCP - General, Family Medicine [phone] REQUESTING PROVIDER Shyam Musa M.D. [address] [place] [phone] LOCAL ONCOLOGIST care clinical team manager to display [place] [facility]COL[facility] FELLOW Polo Dwyer MD PRIMARY [place] ONCOLOGIST Alisa Menjivar M.D. REASON FOR CONSULT [...] Samayoa and his family travel here from [facility], an hour away. 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 Today, [...] Mr. Samayoa's has early dementia with a medicare sales representative who stops by their house three times [...] today. Patient was seen and discussed with [place] business solutions consultant Dr. Menjivar. Polo Dwyer M.D. Hematology/Oncology Fellow, PGY-4 Pgr: [phone] Tel: [phone] Cosigned by Alisa Menjivar M.D. at 10/18/2024 [...] will start the 1st 3 cycles in [place] and if he does okay, transfer his care to [place]. We need explained carefully natural history disease, including that is more likely that the treatment will be palliative instead of curative. documented in this encounter Plan of Treatment Upcoming Encounters Date Type Department Care Team (Late st Contact Info) Description 11/12/2024 9:30 AM CDT Appointment Department of Radiology, [facility], in [address] [phone] Alisa Menjivar M.D. [address] [place] [phone] Discharge Disposition: Home or Self Care 11/12/2024 2:15 PM CDT Office Visit Department of Cardiovascular Medicine in [address] [phone] Elisa Alva M.D. [address] [place] [phone] 11/19/2024 1:00 PM CDT Clinical Communication Virtual Review in [address] [phone] 11/20/2024 8:00 AM CDT Clinical Support Department of Oncology in [address] [phone] Polo Dwyer M.D. [address] [place] [phone] China Parikh M.S.Onur., L.I.C.S.W. [address] [place] [phone] 11/20/2024 10:50 AM CDT Lab Department of Laboratory Medicine and Pathology, [facility] in [place], [place] [address] [place] [phone] Alisa Menjivar M.D. [address] [place] [phone] 11/20/2024 1:30 PM CDT Office Visit Department of Oncology in [place], [place] [address] [place] [phone] Alisa Menjivar M.D. [address] [place] [phone] 11/20/2024 3:00 PM CDT Infusion Department of Oncology in [place], [place] [address] [place] [phone] Alisa Menjivar M.D. [address] [place] [phone] 11/27/2024 7:30 AM CDT Lab Department of Laboratory Medicine and Pathology, [facility], in [place], [place] [address] [place] [phone] Alisa Menjivar M.D. [address] [place] [phone] 11/27/2024 9:30 AM CDT Infusion Department of Oncology in [place], [place] [address] [place] [phone] Alisa Menjivar M.D. [address] [place] [phone] Scheduled Orders Name Type Priority Associated Diagnoses Orde r Schedule CBC with Differential, Blood Lab Routine Malignant Neoplasm Of Bladder (HCC) Medication Therapy Group Home Not Anticoagulant Group Home Current Drug Therapy, Chemotherapy Expected: 11/22/2024, Expires: 11/23/2027 Comprehensive Metabolic Panel Lab Routine Malignant Neoplasm Of Bladder (HCC) Medication Therapy Group Home Not Anticoagulant Group Home Current Drug Therapy, Chemotherapy Expected: 11/22/2024, Expires: 11/22/2025 CBC, Chemotherapy, No Alerts Lab Routine Malignant Neoplasm Of Bladder (HCC) Medication Therapy Pediatric Dietician Not Anticoagulant Pediatric Dietician Current Drug Therapy, Chemotherapy Expected: 11/29/2024, Expires: 11/29/2025 Comprehensive Metabolic Panel Lab Routine Malignant Neoplasm Of Bladder (HCC) Medication Therapy Group Home Not Anticoagulant Pediatric Dietician Current Drug Therapy, Chemotherapy Expected: 11/29/2024, Expires: 11/29/2025 Scheduled Referrals Name Type Priority Associated Diagnoses Orde r Schedule Social Work - General consult (clinic) Outpatient Referral Routine Malignant Neoplasm Of Bladder (HCC) Expected: 10/17/2024, Expires: 01/17/2026 Oncology - Chemo education visit (clinic) Outpatient Referral Routine Malignant Neoplasm Of Bladder (HCC) Medication Therapy Group Home Not Anticoagulant Group Home Current Drug Therapy, Chemotherapy Expected: 10/17/2024, Expires: 01/17/2026 Oncology office visit (clinic) Outpatient Referral Routine Malignant Neoplasm Of Bladder (HCC) Medication Therapy Pediatric Dietician Not Anticoagulant Pediatric Dietician Current Drug Therapy, Chemotherapy Expected: 11/22/2024, Expires: 02/22/2026 documented as of this encounter Results * (ABNORMAL) Comprehensive Metabolic Panel (11/07/2024 11:20 AM CDT) [facility] Potassium, S 4.6 3.6 - 5.2 mmol/L 11/07/2024 12:35 PM CDT DTL Sodium, S 138 135 - 145 mmol/L 11/07/2024 12:35 PM CDT DTL Chloride, S 102 98 - 107 mmol/L 11/07/2024 12:35 PM CDT DTL Bicarbonate, S 25 22 - 29 mmol/L 11/07/2024 12:35 PM CDT DTL Anion Gap 11 7 - 15 11/07/2024 12:35 PM CDT DTL BUN (Blood Urea Nitrogen), S 18 8 - 24 mg/dL 11/07/2024 12:35 PM CDT DTL Creatinine 1.75(H) 0.74 - 1.35 mg/dL 11/07/2024 12:35 PM CDT DTL Estimated GFR (eGFR) 39(L) >=60 mL/min/BS A 11/07/2024 12:35 PM CDT DTL Comment: Estimated GFR calculated using the 2020 CKD_EPI creatinine equation. Calcium, Total, S 8.6(L) 8.8 - 10.2 mg/dL 11/07/2024 12:35 PM CDT DTL Glucose, S 91 70 - 140 mg/dL 11/07/2024 12:35 PM CDT DTL Protein, Total, S 6.8 6.3 - 7.9 g/dL 11/07/2024 12:35 PM CDT DTL Albumin, S 3.5 3.5 - 5.0 g/dL 11/07/2024 12:35 PM CDT DTL Aspartate Aminotransferase (AST), S 21 8 - 48 U/L 11/07/2024 12:35 PM CDT DTL Alkaline Phosphatase, S 88 40 - 129 U/L 11/07/2024 12:35 PM CDT DTL Alanine Aminotransferase (ALT), S 9 7 - 55 U/L 11/07/2024 12:35 PM CDT DTL Bilirubin, Total, S 0.3 0.0 - 1.2 mg/dL 11/07/2024 12:35 PM CDT DTL Blood (Blood, Venous) 11/07/2024 11:20 AM CDT 11/07/2024 11:57 AM CDT us Alisa Menjivar M.D. LAB BLOOD ADD-ON Final Result [facility] [address] [place] [address], [facility] DTL [facility] [address] [place] [address] * (ABNORMAL) CBC, Chemotherapy, No Alerts (11/07/2024 11:20 AM CDT) Hemoglobin 9.9(L) 13.2 - 16.6 g/dL 11/07/2024 12:06 PM CDT [facility] Platelet Count 282 135 - 317 x10(9)/L 11/07/2024 12:06 PM CDT [facility] Leukocytes 7.0 3.4 - 9.6 x10(9)/L 11/07/2024 12:06 PM CDT [facility] Neutrophils 4.47 1.56 - 6.45 x10(9)/L 11/07/2024 12:06 PM CDT [facility] Blood (Blood, Venous) 11/07/2024 11:20 AM CDT 11/07/2024 12:04 PM CDT us Alisa Menjivar M.D. LAB BLOOD ADD-ON Final Result [facility] [address] [place] [address], [facility] METH [facility] [address] [place] [address] DHPM [facility] [address] [place] [address] * Thyroid Function [place] (10/30/2024 9:03 AM CDT) [facility] TSH, Sensitive 1.1 0.3 - 4.2 mIU/L 10/30/2024 10:04 AM CDT [facility] Blood (Blood, Venous) 10/30/2024 9:03 AM CDT 10/30/2024 9:06 AM CDT us Polo Dwyer M.D. LAB BLOOD ADD-ON Final Result [facility] [address] [place] [address], [place] [facility] [place] [address] [place] [phone] * (ABNORMAL) Comprehensive Metabolic Panel (10/30/2024 9:03 AM CDT) [facility] Potassium, P 4.4 3.6 - 5.2 mmol/L 10/30/2024 9:26 AM CDT JOSEFIN[facility] Sodium, P 139 135 - 145 mmol/L 10/30/2024 9:26 AM CDT [facility] Chloride, P 101 98 - 107 mmol/L 10/30/2024 9:26 AM CDT [facility] Bicarbonate, P 24 22 - 29 mmol/L 10/30/2024 9:26 AM CDT [facility] Anion Gap, P 14 7 - 15 10/30/2024 9:26 AM CDT [facility] BUN (Blood Urea Nitrogen), P 21 8 - 24 mg/dL 10/30/2024 9:26 AM CDT [facility] Creatinine 1.78(H) 0.74 - 1.35 mg/dL 10/30/2024 9:26 AM CDT [facility] Estimated GFR (eGFR) 38(L) >=60 mL/min/BS A 10/30/2024 9:26 AM CDT [facility] Comment: Estimated GFR calculated using the 2020 CKD_EPI creatinine equation. Calcium, Total, P 9.2 8.8 - 10.2 mg/dL 10/30/2024 9:26 AM CDT [facility] Glucose, P 109 70 - 140 mg/dL 10/30/2024 9:26 AM CDT [facility] Protein, Total, P 7.7 6.3 - 7.9 g/dL 10/30/2024 9:26 AM CDT [facility] Albumin, P 3.6 3.5 - 5.0 g/dL 10/30/2024 9:26 AM CDT [facility] Aspartate Aminotransferase (AST), P 17 8 - 48 U/L 10/30/2024 9:26 AM CDT [facility] Alkaline Phosphatase, P 98 40 - 129 U/L 10/30/2024 9:26 AM CDT [facility] Alanine Aminotransferase (ALT), P 8 7 - 55 U/L 10/30/2024 9:26 AM CDT [facility] Bilirubin, Total, P 0.4 0.0 - 1.2 mg/dL 10/30/2024 9:26 AM CDT [facility] Blood (Blood, Venous) 10/30/2024 9:03 AM CDT 10/30/2024 9:06 AM CDT us Polo Dwyer M.D. LAB BLOOD ADD-ON Final Result [facility] [address] [place] [address], [facility] JOSEFINA [facility] in [place] [address] [place] [address] * (ABNORMAL) CBC with Differential, Blood (10/30/2024 9:03 AM CDT) Hemoglobin 10.1(L) 13.2 - 16.6 g/dL 10/30/2024 9:09 AM CDT JO[facility] Hematocrit 31.0(L) 38.3 - 48.6 % 10/30/2024 9:09 AM CDT JO[facility] Erythrocytes 3.09(L) 4.35 - 5.65 x10(12)/L 10/30/2024 9:09 AM CDT [facility] MCV 100.3(H) 78.2 - 97.9 fL 10/30/2024 9:09 AM CDT [facility] RBC Distrib Width 13.0 11.8 - 14.5 % 10/30/2024 9:09 AM CDT JO[facility] Platelet Count 238 135 - 317 x10(9)/L 10/30/2024 9:09 AM CDT [facility] Leukocytes 8.6 3.4 - 9.6 x10(9)/L 10/30/2024 9:09 AM CDT [facility] Neutrophils 6.19 1.56 - 6.45 x10(9)/L 10/30/2024 9:09 AM CDT [facility] Lymphocytes 1.47 0.95 - 3.07 x10(9)/L 10/30/2024 9:09 AM CDT [facility] Monocytes 0.64 0.26 - 0.81 x10(9)/L 10/30/2024 9:09 AM CDT JO[facility] Eosinophils 0.25 0.03 - 0.48 x10(9)/L 10/30/2024 9:09 AM CDT JSOEF[facility] Basophils <0.04 0.01 - 0.08 x10(9)/L 10/30/2024 9:09 AM CDT [facility] Blood (Blood, Venous) 10/30/2024 9:03 AM CDT 10/30/2024 9:06 AM CDT us Polo Dwyer M.D. LAB BLOOD ADD-ON Final Result [facility] [address] [place] [address], [facility] JOSEFINA [facility] in [place] [address] [place] [phone] documented in this encounter Visit Diagnoses Diagnosis Malignant Neoplasm Of Bladder (HCC)- Primary Other Pediatric Dietician Current Drug Therapy Medication Therapy Group Home Not Anticoagulant Pediatric Dietician Current Drug Therapy, Chemotherapy documented in this encounter Care Teams Manager Technical Services Relationship Specialty Start Date End Date Elsewhere, Pcp PCP - General Internal Medicine 10/09/24 documented as of this encounter
--- OUTSIDE RECORDS SUMMARY | 2024-10-30 08:50 | XMS_ITS | Encounter Summary ---
Author Organization [facility] Address [address] [place] [address] Care Team Providers Care Electrical Tester Battery Name Role Phone Elsewhere, Pcp Primary Care Provider Unavailabl e Reason for Visit * Episode Based Medications (Routine) - Authorized Specialty Diagnoses / Procedures Referred By Keiko latif Referred To Contact Diagnoses Malignant Neoplasm Of Bladder (HCC) Medication Therapy Senior Care Not Anticoagulant Pharmacy Picking Technician Current Drug Therapy, Chemotherapy Polo Dwyer M.D. [address] [place] [phone] Phone: tel: fax: Department of Oncology in [place], [place] [address] [place] [address] Phone: tel: Referral ID Status Reason Start Date Expiration Date V isits Requested Visits Authorized [id number] Authorized 10/17/2024 10/17/2026 99 99 Encounter Details Date Type Department Care Team (Late st Contact Info) Description 10/30/2024 8:50 AM CDT - 10/30/2024 11:59 PM CDT Hospital Encounter Department of Laboratory Medicine in [address] [phone] Polo Dwyer M.D. [address] [place] [phone] Malignant Neoplasm Of Bladder (HCC); Medication Therapy Senior Care Not Anticoagulant; Pharmacy Picking Technician Current Drug Therapy, Chemotherapy; Other Senior Care Current Drug Therapy Discharge Disposition: Home or Self Care Social History Tobacco Use Types Packs/Day Years Used Date Smoking Tobacco: Former Smokeless Tobacco: Never Alcohol Use Standard Drinks/Week Comments Yes 3 (1 standard drink = 0.6 oz pur e alcohol) [facility] Utilities Answer Date Recorded In [...] your living situation today? I have a [facility] place to live 10/09/2024 Education Answer Date Recorded What is the highest level of school you have completed or the highest degree you have received? 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 30 tablet 3 10/17/2024 10/18/19 rosuvastatin (CRESTOR) 20 mg tablet Take 20 [...] 9:30 AM CDT Appointment Department of Radiology, [facility], in [place], [place] [address] [place] [phone] Alisa Menjivar M.D. [address] [place] [phone] Discharge Disposition: Home or Self Care 11/12/2024 2:15 PM CDT Office Visit Department of Cardiovascular Medicine in [place], [place] [address] [place] [phone] Elisa Alva M.D. [address] [place] [phone] 11/19/2024 1:00 PM CDT Clinical Communication Virtual Review in [place], [place] 200 [place] [address] 11/20/2024 8:00 AM CDT Clinical Support Department of Oncology in [address] [phone] Polo Dwyer M.D. [address] [place] [phone] China Parikh M.S.W., L.I.C.S.W. [address] [place] [phone] 11/20/2024 10:50 AM CDT Lab Department of Laboratory Medicine and Pathology, [facility], in [place], [place] [address] [place] [phone] Alisa Menjivar M.D. [address] [place] [phone] 11/20/2024 1:30 PM CDT Office Visit Department of Oncology in [place], [place] [address] [place] [phone] Alisa Menjivar M.D. [address] [place] [phone] 11/20/2024 3:00 PM CDT Infusion Department of Oncology in [place], [place] [address] [place] [phone] Alisa Menjivar M.D. [address] [place] [phone] 11/27/2024 7:30 AM CDT Lab Department of Laboratory Medicine and Pathology, [facility], in [place], [place] [address] [place] [phone] Alisa Menjivar M.D. [address] [place] [phone] 11/27/2024 9:30 AM CDT Infusion Department of Oncology in [address] [phone] Alisa Menjivar M.D. [address] [place] [phone] documented as of this encounter Procedures Procedure Name Priority Date/Time Associated Diagnosis Comments THYROID FUNCTION CASCADE, S Routine 10/30/2024 9:03 AM CDT Malignant Neoplasm Of Bladder (HCC) Other Pharmacy Picking Technician Current Drug Therapy CBC WITH DIFFERENTIAL, B Routine 10/30/2024 9:03 AM CDT Malignant Neoplasm Of Bladder (HCC) Medication Therapy Pharmacy Picking Technician Not Anticoagulant Senior Care Current Drug Therapy, Chemotherapy COMPREHENSIVE METABOLIC PANEL, S/P Routine 10/30/2024 9:03 AM CDT Malignant Neoplasm Of Bladder (HCC) Medication Therapy Pharmacy Picking Technician Not Anticoagulant Pharmacy Picking Technician Current Drug Therapy, Chemotherapy documented in this encounter Results * Thyroid Function Finney (10/30/2024 9:03 AM CDT) TSH, Sensitive 1.1 0.3 - 4.2 mIU/L 10/30/2024 10:04 AM CDT JOSEFINA Blood (Blood, Venous) 10/30/2024 9:03 AM CDT 10/30/2024 9:06 AM CDT Polo Dwyer M.D. LAB BLOOD ADD-ON Final Result [facility] [address] [place] [address], [facility] JOSEFINA [facility] in [place] [address] [place] [address] * (ABNORMAL) Comprehensive Metabolic Panel (10/30/2024 9:03 AM CDT) Potassium, P 4.4 3.6 - 5.2 mmol/L [...] Dwyer M.D. LAB BLOOD ADD-ON Final Result [facility] [address] [place] [address], [facility] JOSEFINA [facility] in [place] [address] [place] [address] * (ABNORMAL) CBC with Differential, Blood (10/30/2024 [...] - 0.48 x10(9)/L 10/30/2024 9:09 AM CDT JOSEFINA Basophils <0.04 0.01 - 0.08 x10(9)/L 10/30/2024 9:09 AM CDT JOSEFINA Blood (Blood, Venous) 10/30/2024 9:03 AM CDT 10/30/2024 9:06 AM CDT us Polo Dwyer M.D. LAB BLOOD ADD-ON Final Result [facility] [address] [place] [address], [facility] JOSEFINA [facility] in [address] [address] documented in this encounter Visit Diagnoses Diagnosis Malignant Neoplasm Of Bladder (HCC) Medication Therapy Senior Care Not Anticoagulant Senior Care Current Drug Therapy, Chemotherapy Other Pharmacy Picking Technician Current Drug Therapy documented in this encounter Care Teams Electrical Tester Battery Relationship Specialty Start Date End Date Elsewhere, Pcp PCP - General Internal Medicine 10/09/24 documented as of this encounter
--- OUTSIDE RECORDS SUMMARY | 2024-11-01 08:00 | XMS_ITS | Encounter Summary ---
Author Organization [facility] Address [address] [place] [address] Care Team Providers Care Safety Associate Name Role Phone Elsewhere, Pcp Primary Care Provider Unavailabl e Reason for Visit * Episode Based Medications (Routine) - Authorized Specialty Diagnoses / Procedures Referred By Keiko latif Referred To Contact Diagnoses Malignant Neoplasm Of Bladder (HCC) Medication Therapy Group Home Not Anticoagulant Weir Fisher Current Drug Therapy, Chemotherapy Polo Dwyer M.D. [address] [place] [phone] Phone: tel: fax: Department of Oncology in [place], [place] [address] [place] [phone] Phone: tel: Referral ID Status Reason Start Date Expiration Date V isits Requested Visits Authorized [id number] Authorized 10/17/2024 10/17/2026 99 99 Encounter Details Date Type Department Care Team (Late st Contact Info) Description 11/01/2024 8:00 AM CDT Infusion Department of Oncology in [place], [place] [address] [place] [phone] Polo Dwyer M.D. [address] [place] [phone] Malignant Neoplasm Of Bladder (HCC) (Primary Dx); Medication Therapy Weir Fisher Not Anticoagulant; Group Home Current Drug Therapy, [...] your living situation today? I have a [facility] place to live 10/09/2024 Education Answer Date Recorded What is the highest level of school you have completed or the highest degree you have received? 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 Gender Identity Male 09/04/2024 9:32 AM CDT Sexual Orientation Straight 09/04/2024 9: 32 AM CDT documented as of this encounter Last Filed Vital Signs Vital Sign Reading Time Taken Comments Blood Pressure 149/63 11/01/2024 8:25 AM CDT Pulse 50 11/01/2024 8:25 AM CDT Temperature 36.7 C (98.1 F) 11/01/2024 8:25 AM CDT Respiratory Rate 17 11/01/2024 8:25 AM CDT Oxygen Saturation - - Inhaled Oxygen Concentration - - Weight 78.7 kg (173 lb 6.3 oz) 11/01/2024 8:25 A M CDT Height - - Body Mass Index 28.17 10/17/2024 1:11 PM CDT documented in this encounter Plan of Treatment Upcoming Encounters Date Type Department Care Team (Late st Contact Info) Description 11/12/2024 9:30 AM CDT Appointment Department of Radiology, [facility], in [address] [phone] Alisa Menjivar M.D. [address] [place] [phone] Discharge Disposition: Home or Self Care 11/12/2024 2:15 PM CDT Office Visit Department of Cardiovascular Medicine in [address] [phone] Elisa Alva M.D. [address] [place] [phone] 11/19/2024 1:00 PM CDT Clinical Communication Virtual Review in [address] [phone] 11/20/2024 8:00 AM CDT Clinical Support Department of Oncology in [address] [phone] Polo Dwyer M.D. [address] [place] [phone] China Parikh M.S.W., OsminS.W. [address] [place] [phone] 11/20/2024 10:50 AM CDT Lab Department of Laboratory Medicine and Pathology, [facility], in [place], [place] [address] [place] [phone] Alisa Menjivar M.D. [address] [place] [phone] 11/20/2024 1:30 PM CDT Office Visit Department of Oncology in [place], [place] [address] [place] [phone] Alisa Menjivar M.D. [address] [place] [phone] 11/20/2024 3:00 PM CDT Infusion Department of Oncology in [place], [place] [address] [place] [phone] Alisa Menjivar M.D. [address] [place] [phone] 11/27/2024 7:30 AM CDT Lab Department of Laboratory Medicine and Pathology, [facility], in [place], [place] [address] [place] [phone] Alisa Menjivar M.D. [address] [place] [phone] 11/27/2024 9:30 AM CDT Infusion Department of Oncology in [address] [phone] Alisa Menjivar M.D. [address] [place] [phone] documented as of this encounter Visit Diagnoses Diagnosis Malignant Neoplasm Of Bladder (HCC)- Primary Medication Therapy Group Home Not Anticoagulant Group Home Current Drug Therapy, Chemotherapy documented in this encounter Administered Medications Inactive Administered Medications - up to 3 most recent administrations Medication Order MAR Action Action Date Dose Rate Site enfortumab vedotin-ejfv 70 mg in NaCl 0.9% 117 mL IVPB (Padcev) 70 mg (rounded from 65.3307 mg = 0.8333 mg/kg 78.4 kg Treatment plan Measured weight), intravenous, at 234 mL/hr, Administer over 30 Minutes, Once, On Charisse 11/01/24 at 0915, For 1 dose, Enfortumab vedotin-ejfv dose is capped at 125 mg. If patient is >/= 100 kg, dose reduction should be based on this max dose. Do NOT shake. Handle with care. PROTECT FROM LIGHT.Indications:Malignant Neoplasm Of Bladder (HCC),Medication Therapy Group Home Not Anticoagulant,Weir Fisher Current Drug Therapy, Chemotherapy New Bag 11/01/2024 10:49 AM CDT 70 mg 234 mL/hr NaCl 0.9% infusion 1-999 mL/hr, intravenous, As needed, Between Consecutive Piggyback Administrations, Starting on Charisse 11/01/24 at 0818, Infuse at the same rate as the piggyback medication until tubing clears or up to a volume of 20 mL. Select for IV medication administration when no maintenance IV available or when IV medications are not compatible with maintenance fluid.Indications:Malignant Neoplasm Of Bladder (HCC) New Bag 11/01/2024 11:22 AM CDT 234 mL/hr 234 mL/hr ondansetron (PF) injection 8 mg (Zofran) 8 mg, intravenous, Once, On Charisse 11/01/24 at 0845, For 1 doseIndications:Malignant Neoplasm Of Bladder (HCC),Medication Therapy Weir Fisher Not Anticoagulant,Group Home Current Drug Therapy, Chemotherapy Given 11/01/2024 10:46 AM CDT 8 mg pembrolizumab 100 mg in NaCl 0.9% 62 mL IVPB (Keytruda) 100 mg, intravenous, at 124 mL/hr, Administer over 30 Minutes, Once, On Charisse 11/01/24 at 1125, For 1 dose, Do not co-administer other drugs through the same infusion line. Do not shake. Use low protein binding filter (pore size of 0.2-5 micron).Indications:Malignant Neoplasm Of Bladder (HCC),Medication Therapy Weir Fisher Not Anticoagulant,Weir Fisher Current Drug Therapy, Chemotherapy New Bag 11/01/2024 11:30 AM CDT 100 mg 124 mL/hr documented in this encounter Additional Health Concerns Infection Onset Date Last Indicated Resolved Time Protective Environment 11/01/2024 11/01/2024 documented as of this encounter Care Teams Safety Associate Relationship Specialty Start Date End Date Elsewhere, Pcp PCP - General Internal Medicine 10/09/24 documented as of this encounter
--- OUTSIDE RECORDS SUMMARY | 2024-11-01 08:00 | XMS_ITS | Encounter Summary ---
Author Organization [facility] Address [address] [place] [address] Care Team Providers Care Chancellor Name Role Phone Elsewhere, Pcp Primary Care Provider Unavailabl e Reason for Visit * Episode Based Medications (Routine) - Authorized Specialty Diagnoses / Procedures Referred By Keiko latif Referred To Contact Diagnoses Malignant Neoplasm Of Bladder (HCC) Medication Therapy Nursing Home Not Anticoagulant Operations Planner Current Drug Therapy, Chemotherapy Polo Dwyer M.D. [address] [place] [phone] Phone: tel: fax: Department of Oncology in [place], [place] [address] [place] [phone] Phone: tel: Referral ID Status Reason Start Date Expiration Date V isits Requested Visits Authorized [id number] Authorized 10/17/2024 10/17/2026 99 99 Encounter Details Date Type Department Care Team (Late st Contact Info) Description 11/01/2024 8:00 AM CDT Education Department of Oncology in [place], [place] [address] [place] [phone] Polo Dwyer M.D. [address] [place] [phone] Rosa Watters, RMakNMak Malignant Neoplasm Of Bladder (HCC) (Primary Dx) Social History Tobacco Use Types Packs/Day Years Used Date Smoking Tobacco: Former Smokeless Tobacco: Never Alcohol Use Standard Drinks/Week Comments Yes 3 (1 standard drink = 0.6 oz pur e alcohol) [facility] Utilities Answer Date Recorded In [...] living situation today? [facility] 10/09/2024 Education Answer Date Recorded What is the highest level of school you have completed or the highest degree you have received? 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 - 11/01/2024 8:00 AM CDT Cancer Treatment Nurse Education Visit REASON FOR VISIT Met with Hernandez Stanley Samayoa for cancer treatment education on enfortumab-vedotin and pembrolizumab for bladder cancer. Nurse Education Visit Primary Fellow Dr. Dwyer Primary Sweep Molder Dr. Menjivar Oncology History Oncology History Overview Note July [...] Edition - Clinical: Stage CHANTEL (cT3, pM1a) 11/01/2024 - Chemotherapy Enfortumab vedotin-ejfv / Pembrolizumab Start Date: 11/01/2024 Interval History by RN Mr. Samayoa is here with his partner and her adult daughter for infusion treatment education. His partner, Roderick, is diagnosed with Alzheimer's and is no longer able to drive. The adult children will beassisting with transportation to appointments as needed. The family does have questions about possible in home services/support should they be needed in the future. We will place an order for Social Work and coordinate the visit with another return. I met Mr. Samayoa, his partner, Roderick and daughter Mallory to discuss cancer treatment education. He willbegin enfortumab-vedotin and pembrolizumab infusions today. We discussed treatment outline consisting of enfortumab-vedotin and pembrolizumab. Mr. Samayoa understands the potential adverse effects, red flag symptoms to report and care team contact information. Mr. Samayoa will abide by home safety precautions. Labs meet parameters to continue with therapy as scheduled. Plan Mr. Samayoa will receive his Cycle 1 Day 1 enfortumab-vedotin and pembrolizumab infusion He will return as scheduled 11/07/24 for Day 8 of Cycle 1. A Social Work consult has been placed at their request. We will request coordination with other return visits. Mr. Samayoa was encouraged to contact our team at any time with questions or concerns. He expressed understanding and agreement with the plan. He and his family deny further questions or concerns at this time. ASSESSMENT/PLAN Patient education provided per the cancer treatment letter attached in encounters. Printed materials provided to patient per Education Tab. Answered questions. Patient verbalized understanding and voiced appreciation for education. documented in this encounter Plan of Treatment Upcoming Encounters Date Type Department Care Team (Late st Contact Info) Description 11/12/2024 9:30 AM CDT Appointment Department of Radiology, [facility], in [address] [phone] Alisa Menjivar M.D. [address] [place] [phone] Discharge Disposition: Home or Self Care 11/12/2024 2:15 PM CDT Office Visit Department of Cardiovascular Medicine in [address] [phone] Elisa Alva M.D. [address] [place] [phone] 11/19/2024 1:00 PM CDT Clinical Communication Virtual Review in [address] [phone] 11/20/2024 8:00 AM CDT Clinical Support Department of Oncology in [address] [phone] Polo Dwyer M.D. [address] [place] [phone] China Parikh, M.S.W., L.I.C.S.W. [address] [place] [phone] 11/20/2024 10:50 AM CDT Lab Department of Laboratory Medicine and Pathology, [facility] in [place], [place] [address] [place] [phone] Alisa Menjivar M.D. [address] [place] [phone] 11/20/2024 1:30 PM CDT Office Visit Department of Oncology in [place], [place] [address] [place] [phone] Alisa Menjivar M.D. [address] [place] [phone] 11/20/2024 3:00 PM CDT Infusion Department of Oncology in [place], [place] [address] [place] [phone] Alisa Menjivar M.D. [address] [place] [phone] 11/27/2024 7:30 AM CDT Lab Department of Laboratory Medicine and Pathology, [facility], in [place], [place] [address] [place] [phone] Alisa Menjivar M.D. [address] [place] [phone] 11/27/2024 9:30 AM CDT Infusion Department of Oncology in [place], [place] [address] [place] [phone] Alisa Menjivar M.D. [address] [place] [phone] documented as of this encounter Visit Diagnoses Diagnosis Malignant Neoplasm Of Bladder (HCC)- Primary documented in this encounter Additional Health Concerns Infection Onset Date Last Indicated Resolved Time Protective Environment 11/01/2024 11/01/2024 documented as of this encounter Care Teams Chancellor Relationship Specialty Start Date End Date Elsewhere, Pcp PCP - General Internal Medicine 10/09/24 documented as of this encounter
--- OUTSIDE RECORDS SUMMARY | 2024-11-07 13:00 | XMS_ITS | Encounter Summary ---
Author Organization [facility] Address [address] [place] [address] Care Team Providers Care Net Software Developer Name Role Phone Elsewhere, Pcp Primary Care Provider Unavailabl e Reason for Visit * Episode Based Medications (Routine) - Authorized Specialty Diagnoses / Procedures Referred By Keiko t Referred To Contact Diagnoses Malignant Neoplasm Of Bladder (HCC) Medication Therapy Retirement Not Anticoagulant Bulk Loader Current Drug Therapy, Chemotherapy Polo Dwyer M.D. [address] [place] [phone] Phone: tel: fax: Department of Oncology in [place], [place] [address] [place] [phone] Phone: tel: Referral ID Status Reason Start Date Expiration Date V isits Requested Visits Authorized [id number] Authorized 10/17/2024 10/17/2026 99 99 Encounter Details Date Type Department Care Team (Late st Contact Info) Description 11/07/2024 1:00 PM CDT Infusion Department of Oncology in [place], [place] [address] [place] [phone] Alisa Menjivar M.D. [address] [place] [phone] Malignant Neoplasm Of Bladder (HCC) (Primary Dx); Medication Therapy Bulk Loader Not Anticoagulant; Retirement Current Drug Therapy, Chemotherapy Social History Tobacco Use Types Packs/Day Years Used Date Smoking Tobacco: Former Smokeless Tobacco: Never Alcohol Use Standard Drinks/Week Comments Yes 3 (1 standard drink = 0.6 oz pur e alcohol) [facility] Utilities Answer Date Recorded In the [...] degree (e.g., MA, MS, Mani, MEd, SPECIAL EVENTS DRIVER, BERTA) 05/11/2020 Sex and Gender Information Value Date Recorded Sex Assigned at Male 09/04/2024 9:32 AM CDT 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 Gender Identity Male 09/04/2024 9:32 AM CDT Sexual Orientation Straight 09/04/2024 9: 32 AM CDT documented as of this encounter Last Filed Vital Signs Vital Sign Reading Time Taken Comments Blood Pressure 130/60 11/07/2024 1:09 PM CDT Pulse 54 11/07/2024 1:09 PM CDT Temperature 36.3 C (97.3 F) 11/07/2024 1:09 PM CDT Respiratory Rate - - Oxygen Saturation - - Inhaled Oxygen Concentration - - Weight 78.4 kg (172 lb 15.2 oz) 11/07/2024 1:09 PM CDT Height - - Body Mass Index 28.1 10/17/2024 1:11 PM CDT documented in this encounter Plan of Treatment Upcoming Encounters Date Type Department Care Team (Late st Contact Info) Description 11/12/2024 9:30 AM CDT Appointment Department of Radiology, [facility], in [address] [phone] Alisa Menjivar M.D. [address] [place] [phone] Discharge Disposition: Home or Self Care 11/12/2024 2:15 PM CDT Office Visit Department of Cardiovascular Medicine in [address] [phone] Elisa Alva M.D. [address] [place] [phone] 11/19/2024 1:00 PM CDT Clinical Communication Virtual Review in [address] [phone] 11/20/2024 8:00 AM CDT Clinical Support Department of Oncology in [address] [phone] Polo Dwyer M.D. [address] [place] [phone] China Parikh M.S.W., L.I.C.S.W. [address] [place] [phone] 11/20/2024 10:50 AM CDT Lab Department of Laboratory Medicine and Pathology, [facility] in [place], [place] [address] [place] [phone] Alisa Menjivar M.D. [address] [place] [phone] 11/20/2024 1:30 PM CDT Office Visit Department of Oncology in [place], [place] [address] [place] [phone] Alisa Menjivar M.D. [address] [place] [phone] 11/20/2024 3:00 PM CDT Infusion Department of Oncology in [place], [place] [address] [place] [phone] Alisa Menjivar M.D. [address] [place] [phone] 11/27/2024 7:30 AM CDT Lab Department of Laboratory Medicine and Pathology, [facility], in [place], [place] [address] [place] [phone] Alisa Menjivar M.D. [address] [place] [phone] 11/27/2024 9:30 AM CDT Infusion Department of Oncology in [address] [phone] Alisa Menjivar M.D. [address] [place] [phone] documented as of this encounter Visit Diagnoses Diagnosis Malignant Neoplasm Of Bladder (HCC)- Primary Medication Therapy Retirement Not Anticoagulant Bulk Loader Current Drug Therapy, Chemotherapy documented in this [...] mL/hr, Administer over 30 Minutes, Once, On Tue11/07/24 at 1400, For 1 dose, Enfortumab vedotin-ejfv dose is capped at 125 mg. If patient is >/= 100 kg, dose reduction should be based on this max dose. Do NOT shake. Handle with care. PROTECT FROM LIGHT.Indications:Malignant Neoplasm Of Bladder (HCC),Medication Therapy Retirement Not Anticoagulant,Bulk Loader Current Drug Therapy, Chemotherapy New Bag 11/07/2024 1:56 PM CDT 70 mg 234 mL/hr NaCl 0.9% infusion 1-999 mL/hr, intravenous, As needed, Post Medications (Hazardous/Low Fluid Volume), Starting on Tue11/07/24 at 1309, Infuse at the same rate as the medication until tubing cleared of medication, then discard.Indications:Malignan t Neoplasm Of Bladder (HCC) New Bag 11/07/2024 2:25 PM CDT 234 mL/hr 234 mL/hr ondansetron (PF) injection 8 mg (Zofran) 8 mg, intravenous, Once, On Tue11/07/24 at 1330, For 1 doseIndications:Malignant Neoplasm Of Bladder (HCC),Medication Therapy Bulk Loader Not Anticoagulant,Bulk Loader Current Drug Therapy, Chemotherapy Given 11/07/2024 1:54 PM CDT 8 mg documented in this encounter Additional Health Concerns Infection Onset Date Last Indicated Resolved Time Protective Environment 11/01/2024 11/01/2024 documented as of this encounter Care Teams Net Software Developer Relationship Specialty Start Date End Date Elsewhere, Pcp PCP - General Internal Medicine 10/09/24 documented as of this encounter
--- OUTSIDE RECORDS SUMMARY | 2024-11-11 11:13 | XMS_ITS | Encounter Summary ---
Author Organization [facility] Address [address] [place] [address] Care Team Providers Care Cam Maker Name Role Phone Elsewhere, Pcp Primary Care Provider Unavailabl e Encounter Details Date Type Department Care Team (Late st Contact Info) Description 10/13/2024 Orders Only Department of Urology in [place], [place] [address] [place] [phone] Charla Childress M.D. [address] [place] [address] Social History Tobacco Use Types Packs/Day Years Used Date Smoking Tobacco: Former Smokeless Tobacco: Never Alcohol Use Standard Drinks/Week Comments Yes 3 (1 standard drink = 0.6 oz pur e alcohol) [facility] Utilities Answer Date Recorded In the past 12 months has [facility] [employer], gas, oil, or water [employer] threatened to shut off services in your [...] your living situation today? I have a [facility] place to live 10/09/2024 Education Answer Date Recorded What is the highest level of school you have completed or the highest degree you have received? 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 [address] [place] [address] Discharge Disposition: Home or Self Care 11/12/2024 2:15 PM CDT Office Visit Department of Cardiovascular Medicine in [place], [place] [address] [place] [phone] Elisa Alva M.D. [address] [place] [phone] 11/19/2024 1:00 PM CDT Clinical Communication Virtual Review in [place], [place] 200 [place] [address] 11/20/2024 8:00 AM CDT Clinical Support Department of Oncology in [place], [place] [address] [place] [phone] Polo Dwyer M.D. [address] [place] [phone] China Parikh M.S.W., L.I.C.S.W. [address] [place] [phone] 11/20/2024 10:50 AM CDT Lab Department of Laboratory Medicine and Pathology, [facility] in [address] [phone] Alisa Menjivar M.D. [address] [place] [phone] 11/20/2024 1:30 PM CDT Office Visit Department of Oncology in [address] [phone] Alisa Menjivar M.D. [address] [place] [phone] 11/20/2024 3:00 PM CDT Infusion Department of Oncology in [address] [phone] Alisa Menjivar M.D. [address] [place] [phone] 11/27/2024 7:30 AM CDT Lab Department of Laboratory Medicine and Pathology, [facility] in [place], [place] [address] [place] [address] Alisa Menjivar M.D. [address] [place] [phone] 11/27/2024 9:30 AM CDT Infusion Department of Oncology in [place], [place] [address] [place] [address] Alisa Menjivar M.D. [address] [place] [phone] documented as of this encounter Visit Diagnoses Not on filedocumented in this encounter Care Teams Cam Maker Relationship Specialty Start Date End Date Elsewhere, Pcp PCP - General Internal Medicine 10/09/24 documented as of this encounter
--- OUTSIDE RECORDS SUMMARY | 2024-11-11 11:13 | XMS_ITS | Encounter Summary ---
Author Organization [facility] Address [address] [place] [address] Care Team Providers Care Application Security Specialist Name Role Phone Elsewhere, Pcp Primary Care Provider Unavailabl e Encounter Details Date Type Department Care Team (Late st Contact Info) Description 10/13/2024 Documentation Department of Urology in [place], [place] [address] [place] [address] Charla Childress M.D. [address] [place] [phone] Social History Tobacco Use Types Packs/Day Years Used Date Smoking Tobacco: Former Smokeless Tobacco: Never Alcohol Use Standard Drinks/Week Comments Yes 3 (1 standard drink = 0.6 oz pur e alcohol) [facility] Utilities Answer Date Recorded In the past 12 months has [facility] [employer], gas, oil, or water [employer] threatened to shut off services in your [...] your living situation today? I have a [facility] place to live 10/09/2024 Education Answer Date Recorded What is the highest level of school you have completed or the highest degree you have received? 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 - 10/13/2024 1:15 PM CDT Error. documented in this encounter Plan of Treatment Upcoming Encounters Date Type Department Care Team (Late st Contact Info) Description 11/12/2024 9:30 AM CDT Appointment Department of Radiology, [facility], in [place], [place] [address] [place] [address] Alisa Menjivar M.D. [address] [place] [phone] Discharge Disposition: Home or Self Care 11/12/2024 2:15 PM CDT Office Visit Department of Cardiovascular Medicine in [address] [phone] Elisa Alva M.D. [address] [place] [phone] 11/19/2024 1:00 PM CDT Clinical Communication Virtual Review in [place], [place] 200 [place] [address] 11/20/2024 8:00 AM CDT Clinical Support Department of Oncology in [address] [phone] Polo Dwyer M.D. [address] [place] [phone] China Parikh, M.S.W., L.I.C.S.W. [address] [place] [phone] 11/20/2024 10:50 AM CDT Lab Department of Laboratory Medicine and Pathology, [facility] in [address] [phone] Alisa Menjivar M.D. [address] [place] [phone] 11/20/2024 1:30 PM CDT Office Visit Department of Oncology in [address] [phone] Alisa Menjivar M.D. [address] [place] [phone] 11/20/2024 3:00 PM CDT Infusion Department of Oncology in [address] [phone] Alisa Menjivar M.D. [address] [place] [address] 11/27/2024 7:30 AM CDT Lab Department of Laboratory Medicine and Pathology, [facility] in [place], [place] [address] [place] [address] Alisa Menjivar M.D. [address] [place] [phone] 11/27/2024 9:30 AM CDT Infusion Department of Oncology in [place], [place] [address] [place] [address] Alisa Menjivar M.D. [address] [place] [phone] documented as of this encounter Visit Diagnoses Not on filedocumented in this encounter Care Teams Application Security Specialist Relationship Specialty Start Date End Date Elsewhere, Pcp PCP - General Internal Medicine 10/09/24 documented as of this encounter
--- OUTSIDE RECORDS SUMMARY | 2024-11-11 11:14 | XMS_ITS | Encounter Summary ---
Author Organization [facility] Address [address] [place] [address] Care Team Providers Care Surfacing Technician Name Role Phone Elsewhere, Pcp Primary Care Provider Unavailabl e Reason for Referral * Outpatient (Routine) - Authorized Specialty Diagnoses / Procedures Referred By Keiko latif Referred To Contact Diagnoses Pain Chest Procedures NM Cardiac Perfusion Rest and Stress SPECT Ab Shabazz MPAS P.A.-Shayna., M.S. [address] [place] [address] Phone: tel: fax: [facility] Referral ID Status Reason Start Date Expiration Date V isits Requested Visits Authorized [id number] Authorized 10/02/2024 01/02/2026 8 8 Reason for Visit * Reason Onset Date Comments Triage 10/01/2024 Santiago Alvares Preop # [id number] Encounter Details Date Type Department Care Team (Latest Contact Info) Description 10/01/2024 Clinical Communication Department of Cardiovascular Medicine in [place], [place] [address] [place] [phone] Teaching AideMarco Antonio M.D. Triage (Santiago Alvares Preop # [id number]) Social History Tobacco Use Types Packs/Day Years Used Date Smoking Tobacco: Former Smokeless Tobacco: Never Alcohol Use Standard Drinks/Week Comments Yes 6 (1 standard drink = 0.6 oz pur e alcohol) [facility] Utilities Answer Date Recorded In [...] your living situation today? I have a [facility] place to live 10/09/2024 Education Answer Date Recorded What is the highest level of school you have completed or the highest degree you have received? 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 - 10/01/2024 12:49 PM CDT Comprehensive Cardiology [...] referred by SAVANAH GONZALEZ for clinical question: CV CARLOS Request Surgery: Cystoscopy with resection bladder tumor Surgery Date: 10/11/24 Per SAVANAH GONZALEZ: Further Recommendations: Cardiology CARLOS Consult ordered given the patients increasingfrequency of rest and exertional chest pain. 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 We willproceed with medical therapy for chronic [...] 9:30 AM CDT Appointment Department of Radiology, [facility], in [place], [place] [address] [place] [address] Alisa Menjivar M.D. [address] [place] [address] Discharge Disposition: Home or Self Care 11/12/2024 2:15 PM CDT Office Visit Department of Cardiovascular Medicine in [address] [phone] Elisa Alva M.D. [address] [place] [phone] 11/19/2024 1:00 PM CDT Clinical Communication Virtual Review in [place], [place] [address] [place] [address] 11/20/2024 8:00 AM CDT Clinical Support Department of Oncology in [address] [phone] Polo Dwyer M.D. [address] [place] [phone] China Parikh, M.S.W., L.I.C.S.W. [address] [place] [phone] 11/20/2024 10:50 AM CDT Lab Department of Laboratory Medicine and Pathology, [facility] in [address] [phone] Alisa Menjivar M.D. [address] [place] [phone] 11/20/2024 1:30 PM CDT Office Visit Department of Oncology in [address] [phone] Alisa Menjivar M.D. [address] [place] [phone] 11/20/2024 3:00 PM CDT Infusion Department of Oncology in [address] [phone] Alisa Menjivar M.D. [address] [place] [phone] 11/27/2024 7:30 AM CDT Lab Department of Laboratory Medicine and Pathology, [facility], in [place], [place] [address] [place] [address] Alisa Menjivar M.D. [address] [place] [phone] 11/27/2024 9:30 AM CDT Infusion Department of Oncology in [place], [place] [address] [place] [phone] Alisa Menjivar M.D. [address] [place] [phone] documented as of this encounter Results * NM Cardiac Perfusion Rest and Stress SPECT (10/09/2024 8:57 AM CDT) 10/09/2024 7:13 AM CDT Narrative [facility] CV MERGE - 10/09/2024 10:42 AM CDT See PDF For Result Procedure Note Taina Galloway M.D. - 10/09/2024 See PDF For Result Ab ABBOTT, P.A.-C., M.S. [facility]EVER MORAN Final Result [facility] CV MERGE NA documented in this encounter Visit Diagnoses Diagnosis Pain Chest- Primary Pain Chest documented in this encounter Care Teams Surfacing Technician Relationship Specialty Start Date End Date Elsewhere, Pcp PCP - General Internal Medicine 10/09/24 documented as of this encounter
--- OUTSIDE RECORDS SUMMARY | 2024-11-11 11:14 | XMS_ITS | Encounter Summary ---
Author Organization [facility] Address [address] [place] [address] Care Team Providers Care Automotive Manufacturer Name Role Phone Elsewhere, Pcp Primary Care Provider Unavailabl e Encounter Details Date Type Department Care Team (Late st Contact Info) Description 10/02/2024 Orders Only Department of Urology in [place], [place] [address] [place] [address] Charla Childress M.D. [address] [place] [address] Mass Bladder (Primary Dx) Social History Tobacco Use Types Packs/Day Years Used Date Smoking Tobacco: Former Smokeless Tobacco: Never Alcohol Use Standard Drinks/Week Comments Yes 6 (1 standard drink = 0.6 oz pur e alcohol) [facility] Utilities Answer Date Recorded In the past 12 months has [employer], gas, oil, or water [employer] threatened to shut off services in your [...] your living situation today? I have a [facility] place to live 10/09/2024 Education Answer Date Recorded What is the highest level of school you have completed or the highest degree you have received? 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, POUNCING MACHINE OPERATOR, BERTA) 05/11/2020 Sex and Gender Information Value Date Recorded Sex Assigned at Male 09/04/2024 9:32 AM CDT Legal Sex Male 5:45 PM CRITICAL CARE PARAMEDIC Gender Identity Male 09/04/2024 9:32 AM CDT Sexual Orientation Straight 09/04/2024 9: 32 AM CDT documented as of this encounter Plan of Treatment Upcoming Encounters Date Type Department Care Team (Late st Contact Info) Description 11/12/2024 9:30 AM CDT Appointment Department of Radiology, [facility], in [place], [place] [address] [place] [address] Alisa Menjivar M.D. [address] [place] [phone] Discharge Disposition: Home or Self Care 11/12/2024 2:15 PM CDT Office Visit Department of Cardiovascular Medicine in [place], [place] [address] [place] [phone] Elisa Alva M.D. [address] [place] [phone] 11/19/2024 1:00 PM CDT Clinical Communication Virtual Review in [place], [place] [address] [place] [address] 11/20/2024 8:00 AM CDT Clinical Support Department of Oncology in [place], [place] [address] [place] [phone] Polo Dwyer M.D. [address] [place] [phone] China Parikh M.S.W., L.I.C.S.W. [address] [place] [phone] 11/20/2024 10:50 AM CDT Lab Department of Laboratory Medicine and Pathology, [facility] in [address] [phone] Alisa Menjivar M.D. [address] [place] [phone] 11/20/2024 1:30 PM CDT Office Visit Department of Oncology in [address] [phone] Alisa Menjivar M.D. [address] [place] [phone] 11/20/2024 3:00 PM CDT Infusion Department of Oncology in [address] [address] Alisa Menjivar M.D. [address] [place] [phone] 11/27/2024 7:30 AM CDT Lab Department of Laboratory Medicine and Pathology, [place], in [place], [place] [address] [place] [address] Alisa Menjivar M.D. [address] [place] [phone] 11/27/2024 9:30 AM CDT Infusion Department of Oncology in [place], [place] [address] [place] [address] Alisa Menjivar M.D. [address] [place] [phone] documented as of this encounter Visit Diagnoses Diagnosis Mass Bladder- Primary documented in this encounter Care Teams Automotive Manufacturer Relationship Specialty Start Date End Date Elsewhere, Pcp PCP - General Internal Medicine 10/09/24 documented as of this encounter
--- OUTSIDE RECORDS SUMMARY | 2024-11-11 11:14 | XMS_ITS | Encounter Summary ---
Author Organization [facility] Address [address] [place] [phone] Care Team Providers Care Glove Cutter Name Role Phone Elsewhere, Pcp Primary Care Provider Unavailabl e Reason for Visit * Reason Onset Date Comments Order Request 10/23/2024 Encounter Details Date Type Department Care Team ([facility] st Contact Info) Description 10/23/2024 Clinical Communication Department of Oncology in [place], [place] [address] [place] [phone] Alisa Menjivar M.D. [address] [place] [phone] Order Request Social History Tobacco Use Types Packs/Day Years Used Date Smoking Tobacco: Former Smokeless Tobacco: Never Alcohol Use Standard Drinks/Week Comments Yes 3 (1 standard drink = 0.6 oz pur e alcohol) [facility] Utilities Answer Date Recorded In the past 12 months has [facility] [employer], gas, oil, or water [employer] threatened to shut off services in your [...] 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, BONE GRINDER, BERTA) 05/11/2020 Sex and Gender Information Value Date Recorded Sex Assigned at Male 09/04/2024 9:32 AM CDT Legal Sex Male 5:45 PM WELFARE DIRECTOR Gender Identity Male 09/04/2024 9:32 AM CDT Sexual Orientation Straight 09/04/2024 9: 32 AM CDT documented as of this encounter Plan of Treatment Upcoming Encounters Date Type Department Care Team (Late st Contact Info) Description 11/12/2024 9:30 AM CDT Appointment Department of Radiology, [facility], in [place], [place] [address] [place] [phone] Alisa Menjivar M.D. [address] [place] [phone] Discharge Disposition: Home or Self Care 11/12/2024 2:15 PM CDT Office Visit Department of Cardiovascular Medicine in [place], [place] [address] [place] [phone] Elisa Alva M.D. [address] [place] [phone] 11/19/2024 1:00 PM CDT Clinical Communication Virtual Review in [place], [place] 200 [place] [address] 11/20/2024 8:00 AM CDT Clinical Support Department of Oncology in [place], [place] [address] [place] [phone] Polo Dwyer M.D. [address] [place] [phone] China Parikh M.S.W., L.I.C.S.W. [address] [place] [phone] 11/20/2024 10:50 AM CDT Lab Department of Laboratory Medicine and Pathology, [facility] in [place], [place] [address] [place] [phone] Alisa Menjivar M.D. [address] [place] [phone] 11/20/2024 1:30 PM CDT Office Visit Department of Oncology in [place], [place] [address] [place] [phone] Alisa Menjivar M.D. [address] [place] [phone] 11/20/2024 3:00 PM CDT Infusion Department of Oncology in [place], [place] [address] [place] [phone] Alisa Menjivar M.D. [address] [place] [phone] 11/27/2024 7:30 AM CDT Lab Department of Laboratory Medicine and Pathology, [facility], in [place], [place] [address] [place] [address] Alisa Menjivar M.D. [address] [place] [phone] 11/27/2024 9:30 AM CDT Infusion Department of Oncology in [place], [place] [address] [place] [address] Alisa Menjivar M.D. [address] [place] [phone] documented as of this encounter Visit Diagnoses Not on filedocumented in this encounter Additional Health Concerns Infection Onset Date Last Indicated Resolved Time Protective Environment 11/01/2024 11/01/2024 documented as of this encounter Care Teams Glove Cutter Relationship Specialty Start Date End Date Elsewhere, Pcp PCP - General Internal Medicine 10/09/24 documented as of this encounter
--- OUTSIDE RECORDS SUMMARY | 2024-11-11 11:14 | XMS_ITS | Encounter Summary ---
Author Organization [facility] Address [address] [place] [address] Care Team Providers Care Benefits Processor Name Role Phone Elsewhere, Pcp Primary Care Provider Unavailabl e Reason for Visit * Reason Onset Date Comments OPC PROC 10/09/2024 Encounter Details Date Type Department Care Team (Late st Contact Info) Description 10/09/2024 Clinical Communication Department of Urology in [place], [place] [address] [place] [address] Braulio Martins OPC PROC Social History Tobacco Use Types Packs/Day Years Used Date Smoking Tobacco: Former Smokeless Tobacco: Never Alcohol Use Standard Drinks/Week Comments Yes 3 (1 standard drink = 0.6 oz pur e alcohol) [facility] Utilities Answer Date Recorded In the past 12 months has e [employer], gas, oil, or water [employer] threatened to shut off services in your [...] your living situation today? I have a [facility] place to live 10/09/2024 Education Answer Date Recorded What is the highest level of school you have completed or the highest degree you have received? 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, COMPENSATION COORDINATOR, BERTA) 05/11/2020 Sex and Gender Information Value Date Recorded Sex Assigned at Male 09/04/2024 9:32 AM CDT Legal Sex Male 5:45 PM INBOUND CALL CENTER REPRESENTATIVE Gender Identity Male 09/04/2024 9:32 AM CDT Sexual Orientation Straight 09/04/2024 9: 32 AM CDT documented as of this encounter Plan of Treatment Upcoming Encounters Date Type Department Care Team (Late st Contact Info) Description 11/12/2024 9:30 AM CDT Appointment Department of Radiology, [facility], in [place], [place] [address] [place] [address] Alisa Menjivar M.D. [address] [place] [phone] Discharge Disposition: Home or Self Care 11/12/2024 2:15 PM CDT Office Visit Department of Cardiovascular Medicine in [place], [place] [address] [place] [address] Elisa Alva M.D. [address] [place] [phone] 11/19/2024 1:00 PM CDT Clinical Communication Virtual Review in [place], [place] [address] [place] [address] 11/20/2024 8:00 AM CDT Clinical Support Department of Oncology in [place], [place] [address] [place] [phone] Polo Dwyer M.D. [address] [place] [phone] China Parikh M.S.W., L.I.C.S.W. [address] [place] [phone] 11/20/2024 10:50 AM CDT Lab Department of Laboratory Medicine and Pathology, [facility] in [address] [phone] Alisa Menjivar M.D. [address] [place] [phone] 11/20/2024 1:30 PM CDT Office Visit Department of Oncology in [address] [phone] Alisa Menjivar M.D. [address] [place] [phone] 11/20/2024 3:00 PM CDT Infusion Department of Oncology in [address] [phone] Alisa Menjivar M.D. [address] [place] [phone] 11/27/2024 7:30 AM CDT Lab Department of Laboratory Medicine and Pathology, [facility], in [address] [phone] Alisa Menjivar M.D. [address] [place] [address] 11/27/2024 9:30 AM CDT Infusion Department of Oncology in [place], [place] [address] [place] [address] Alisa Menjivar M.D. [address] [place] [address] documented as of this encounter Visit Diagnoses Not on filedocumented in this encounter Additional Health Concerns Infection Onset Date Last Indicated Resolved Time Protective Environment 11/01/2024 11/01/2024 documented as of this encounter Care Teams Benefits Processor Relationship Specialty Start Date End Date Elsewhere, Pcp PCP - General Internal Medicine 10/09/24 documented as of this encounter
--- OUTSIDE RECORDS SUMMARY | 2024-11-11 11:14 | XMS_ITS | Clinical Summary ---
Author Organization [facility] Address [address] [place] [address] Care Team Providers Care Cold Molding Press Operator Name Role Phone Osorio Galvan MD Primary Care Provider [phone]- [phone] Allergies Active Allergy Reactions Criticality Noted Date [...] enteric coated tabletIndications: Coronary artery disease involving [place] heart without angina pectoris, unspecified vessel or lesion type,Ascending aorta dilatation,ASHD (arteriosclerotic heart disease),Hyperlipi demia, unspecified hyperlipidemia type Take 1 Tablet (81 mg) by mouth once daily with a meal. 07/18/19 25 Active nitroglycerin 0.4 mg sublingual tabletIndications: Coronary artery disease involving [place] heart without angina pectoris, unspecified vessel or [...] shows severe OM1 (small) and distal RCA COMPONENTS ENGINEER. We will proceed with medical therapy for [...] Encounters Date Type Department Care Team Description 11/01/2024 Telephone [facility] [address] [place] [address] Osorio Galvan MD Medication Management 11/01/2024 Telephone [facility] [address] [place] [address] Osorio Galvan MD Error-please disregard 10/24/2024 Orders Only [facility] Scanner 1 scan: (1-Ord) [facility], 10/24/2024 10/24/2024 Nurse Triage [facility] [address] [facility] [address] Osorio Galvan MD Catheter Problem 10/23/2024 Orders Only [facility] Scanner 1 scan: (1-Ord) DARREN, URINALYSIS, 10/23/2024 10/23/2024 Nurse Triage [facility] [address] [facility] [address] Osorio Galvan MD Catheter Problem 10/23/2024 Nurse Triage [facility] [address] [facility] [address] Osorio Galvan MD Catheter Problem 10/22/2024 10:00 AM CDT Office Visit [facility] [address] [facility] [address] Osorio Galvan MD Hospital F/U ([place] 10/07-10/11 ) 10/22/2024 Travel 10/18/2024 9:00 AM CDT Nurse/Clinic Staff Only [facility] [address] [facility] [address] Immunization/Injec tion (VITAMIN B-12 INJECTION ) 10/18/2024 Travel 10/16/2024 8:15 AM CDT Office Visit [facility] [address] [facility] [address] Vaishnavi Deng MD Hospital F/U 10/15/2024 Travel 10/12/2024 Telephone [facility] [address] [facility] [address] Osorio Galvan MD Lab (Blood work needed) 10/10/2024 Orders Only [facility] Scanner 1 scan: (1-Ord) [place]AND[place]AL, CORONARY ANGIOGRAPHY, 10/10/2024 09/10/2024 4:15 PM CDT Nurse/Clinic Staff Only [facility] [address] [place] [address] Immunization/Injec tion (B12) 09/10/2024 Travel 08/27/2024 Orders Only [facility] Scanner 1 scan: (1-Ord) [facility], CT ABDOMEN PELVIS W CON, 08/27/2024 08/24/2024 11:20 AM CDT Office Visit [facility] [address] [place] [address] Osorio Galvan MD Hospital F/U (ANW - bladder/kidney obstruction/Has catheter placed); Memory Loss (Daughter asking about memory concerns); Referral (Home care referral) 08/24/2024 Travel 08/22/2024 Telephone [facility] [address] [place] [address] Osorio Galvan MD Questions (Request ) 08/22/2024 Telephone [facility] [address] [place] [address] Osorio Galvan MD Appointment (Request ) 08/16/2024 Orders Only [facility] Scanner 1 scan: (1-Ord) [place], MULTIPLE LABS, 08/16/2024 08/15/2024 Patient Outreach [facility] [address] [place] [address] More Watson, RN Primary RN Care Management; Hospital F/U (LACE 56) 08/12/2024 7:45 PM CDT - 08/14/2024 5:36 PM CDT Hospital Encounter [facility] [address] [place] [address] Yvette Duffy MD [facility], [facility] Meli Emmanuel DO Shettigar, Amrith, MD Discharge Disposition: Home Self Care 08/12/2024 Orders Only [facility] Scanner 1 scan: (1-Ord) [facility], CT ABDOMEN PELVIS W CON, 08/12/2024 08/12/2024 Travel from Last 3 Months Immunizations Immunization Administration Dates Next Due Amb Influenza, Inact (High-d ose) (Flu Clinic Only) 12/26/2015,12/26/2015,01/15/2014 COVID-19 VACCINE SPIKEVAX (M ODERNA 50MCG/0.5ML) 12YO+ PFS 05/31/2023,01/11/2023 COVID-19 vaccine ([employer] NTech 30mcg/0.3mL) 12YO+ BIVALENT PF, MDV 08/12/2022,12/28/2021 COVID-19 vaccine ([employer] NTech 30mcg/0.3mL) 12YO+ LESLI-SUCROSE PF, MDV 06/30/2021 COVID-19 vaccine ([employer] NTech 30mcg/0.3mL) PF, MDV 12/24/2020,06/12/2020,05/22/2020 Influenza, High-dose [...] on file Legal Sex Male 8:42 AM MACHINE STOPPAGE FREQUENCY CHECKER Gender Identity Not on file Sexual Orientation [...] Care Team (Late st Contact Info) Description 11/16/2024 10:05 AM CDT Office Visit [facility] [address] [facility] [address] Osorio Galvan MD [address] [facility] [address] Health Maintenance Due Date Last Done Comments [...] this topic Medical Devices Implanted Type Area Senior Backup Administrator Device Identifier Shelf Expiration Date Model / Serial / Lot Tissue Pericardium 0.8x8cm Xenosure - [id number] Implanted:Qty: 1 on 03/10/2020 by Isidro Smiley MD at [facility] Right: Carotid Artery [employer] 07/23/2025 0.8P8# / / [id number] Procedures Procedure Name Priority Date/Time Associated Diagnosis Comments SCAN-ULTRASOUND REPORT 12:00 AM CDT SCAN-PATHOLOGY REPORT 10/23/2024 12:00 AM CDT BASIC METABOLIC PANEL Routine 10/22/2024 11:10 AM [...] AM CDT SCAN-CT INTERPRETATION 12:00 AM CDT from Last 3 Months Results * SCAN-ULTRASOUND REPORT (10/24/2024 12:00 AM CDT) Anatomical Region Laterality Modality Other us Scanner OTHER Final Result * SCAN-PATHOLOGY REPORT (10/23/2024 12:00 AM CDT) Only the most recent of2 resultswithin the time period is included. us Scanner OTHER Final Result * (ABNORMAL) BASIC METABOLIC PANEL (10/22/2024 11:10 AM CDT) Only the most recent of5 resultswithin the time period is included. GLUCOSE 94 65 - 99 mg/dL [employer] [facility] Comment: Fasting reference interval UREA [...] CALCIUM 8.8 8.6 - 10.3 mg/dL [facility] Blood BLOOD SPECIMEN / Unknown 10/22/2024 11:10 AM CDT 10/22/2024 11:11 AM CDT us Osorio Galvan MD CHEMISTRY Final Resu lt [employer] [facility] [address] [place] [address], [employer] [address] [place] [address] * SCAN-ANGIOGRAM (10/10/2024 12:00 AM CDT) Anatomical Region Laterality Modality Other us Scanner OTHER Final Result * SCAN-CT INTERPRETATION (08/27/2024 12:00 AM CDT) Only the most recent of2 resultswithin the time period is included. Anatomical Region Laterality Modality Other us Scanner OTHER Final Result * (ABNORMAL) Hemoglobin AM (08/14/2024 7:10 AM CDT) HEMOGLOBIN 11.8(L) 13.5 - 17.5 g/dL 08/14/2024 7:24 AM CDT [facility] MCV 98 80 - 100 fL 08/14/2024 7:24 AM CDT [facility] Blood BLOOD SPECIMEN / Unknown Venipuncture / Unknown 08/14/2024 7:10 AM CDT 08/14/2024 7:16 AM CDT Polo Huizar MD HEMATOLOGY Final Result [facility] [address] [place] [address], * US RENAL AND BLADDER COMPLETE (08/13/2024 [...] For Patients: As a result of the 21st Century Cures Act, medical imaging exams and [...] 11.0 thou/cu mm 08/13/2024 7:56 AM CDT [facility] RED BLOOD COUNT 3.45(L) 4.30 - 5.90 mil/cu mm 08/13/2024 7:56 AM CDT [facility] HEMOGLOBIN 11.6(L) 13.5 - 17.5 g/dL 08/13/2024 7:56 AM T [facility] HEMATOCRIT 34.0(L) 37.0 - 53.0 % 08/13/2024 7:56 AM T [facility] MCV 99 80 - 100 fL 08/13/2024 7:56 AM CDT [facility] MCH 33.6 26.0 - 34.0 pg 08/13/2024 7:56 AM T [facility] MCHC 34.1 32.0 - 36.0 g/dL 08/13/2024 7:56 AM CDT [facility] RDW 12.8 11.5 - 15.5 % 08/13/2024 7:56 AM CDT [facility] PLATELET COUNT 157 140 - 440 thou/cu mm 08/13/2024 7:56 AM CDT [facility] MPV 9.6 6.5 - 11.0 fL 08/13/2024 7:56 AM CDT [facility] NRBC 0.0 % 08/13/2024 7:56 AM CDT [facility] ABS NRBC 0.0 thou /cu mm 08/13/2024 7:56 AM T [facility] Blood BLOOD SPECIMEN / Unknown Venipuncture / Unknown 08/13/2024 7:27 AM CDT 08/13/2024 7:48 AM CDT us Meli Emmanuel DO HEMATOLOGY Gabriella l Result [facility] [address] [address], * PSA TOTAL (08/13/2024 7:27 AM CDT) PSA TOTAL 0.40 <4.00 ng/mL 08/13/2024 8:37 AM CDT [facility] Blood BLOOD SPECIMEN / Unknown Venipuncture / Unknown 08/13/2024 7:27 AM CDT 08/13/2024 7:48 AM CDT Narrative [facility] - 08/13/2024 8:37 AM [...] Meli Emmanuel DO CHEMISTRY Gabriella l Result [facility] [address] [address], from Last 3 Months Insurance MEDICARE PB ONLY AAR PB ONLY AARP HB ONLY MEDICARE PART [...] Comments Code Status Discussion: Discussed Care Teams Cold Molding Press Operator Relationship Specialty Start Date End Date Osorio Galvan MD [address] [place] [address] PCP - General Family Practice 07/20/12
--- OUTSIDE RECORDS SUMMARY | 2024-11-11 11:14 | XMS_ITS | Encounter Summary ---
Author Organization [facility] Address [address] [place] [address] Care Team Providers Care Two Way Radio Installer Name Role Phone Elsewhere, Pcp Primary Care Provider Unavailabl e Encounter Details Date Type Department Care Team (Late st Contact Info) Description 10/10/2024 Documentation Department of Urology in [place], [place] [address] [place] [address] Charla Childress M.D. [address] [place] [phone] Social History Tobacco Use Types Packs/Day Years Used Date Smoking Tobacco: Former Smokeless Tobacco: Never Alcohol Use Standard Drinks/Week Comments Yes 3 (1 standard drink = 0.6 oz pur e alcohol) [facility] Utilities Answer Date Recorded In the past 12 months has [facility] [employer], gas, oil, or water [employer] threatened to shut off services in your [...] your living situation today? I have a [facility] place to live 10/09/2024 Education Answer Date Recorded What is the highest level of school you have completed or the highest degree you have received? 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, QUILTING MACHINE OPERATOR, BERTA) 05/11/2020 Sex and Gender Information Value Date Recorded Sex Assigned at Male 09/04/2024 9:32 AM CDT Legal Sex Male 5:45 PM PROGRAMMING ENGINEER Gender Identity Male 09/04/2024 9:32 AM [...] 9:30 AM CDT Appointment Department of Radiology, [facility], in [address] [phone] Alisa Menjivar M.D. [address] [place] [phone] Discharge Disposition: Home or Self Care 11/12/2024 2:15 PM CDT Office Visit Department of Cardiovascular Medicine in [address] [phone] Elisa Alva M.D. [address] [place] [phone] 11/19/2024 1:00 PM CDT Clinical Communication Virtual Review in [place], [place] [address] [place] [address] 11/20/2024 8:00 AM CDT Clinical Support Department of Oncology in [address] [phone] Polo Dwyer M.D. [address] [place] [phone] China Parikh M.S.Onur., L.IMakC.S.W. [address] [place] [phone] 11/20/2024 10:50 AM CDT Lab Department of Laboratory Medicine and Pathology, [facility] in [place], [place] [address] [place] [phone] Alisa Menjivar M.D. [address] [place] [phone] 11/20/2024 1:30 PM CDT Office Visit Department of Oncology in [place], [place] [address] [place] [phone] Alisa Menjivar M.D. [address] [place] [phone] 11/20/2024 3:00 PM CDT Infusion Department of Oncology in [place], [place] [address] [place] [phone] Alisa Menjivar M.D. [address] [place] [phone] 11/27/2024 7:30 AM CDT Lab Department of Laboratory Medicine and Pathology, [facility] in [place], [place] [address] [place] [phone] Alisa Menjivar M.D. [address] [place] [phone] 11/27/2024 9:30 AM CDT Infusion Department of Oncology in [address] [phone] Alisa Menjivar M.D. [address] [place] [phone] documented as of this encounter Visit Diagnoses Not on filedocumented in this encounter Care Teams Two Way Radio Installer Relationship Specialty Start Date End Date Elsewhere, Pcp PCP - General Internal Medicine 10/09/24 documented as of this encounter
--- OUTSIDE RECORDS SUMMARY | 2024-11-11 11:14 | XMS_ITS | Encounter Summary ---
Author Organization [facility] Address [address] [place] [address] Care Team Providers Care Grinder And Plater Name Role Phone Elsewhere, Pcp Primary Care Provider Unavailabl e Encounter Details Date Type Department Care Team (Late st Contact Info) Description 10/02/2024 Results Follow-Up Department of Urology in [place], [place] [address] [place] [address] Charla Childress M.D. [address] [place] [phone] Bacterial Culture, Aerobic + Susceptibility, Urine, Urinalysis, [...] 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, PIE CUTTER, BERTA) 05/11/2020 Sex and Gender Information Value Date Recorded Sex Assigned at Male 09/04/2024 9:32 AM CDT Legal Sex Male 5:45 PM STRATEGIC COMMUNICATIONS SPECIALIST Gender Identity Male 09/04/2024 9:32 AM [...] scheduling? Looks like they approved the triage. Charla Ramos documented in this encounter Plan of Treatment Upcoming Encounters Date Type Department Care Team (Late st Contact Info) Description 11/12/2024 9:30 AM CDT Appointment Department of Radiology, [facility], in [address] [phone] Alisa Menjivar M.D. [address] [place] [phone] Discharge Disposition: Home or Self Care 11/12/2024 2:15 PM CDT Office Visit Department of Cardiovascular Medicine in [address] [phone] Elisa Alva M.D. [address] [place] [phone] 11/19/2024 1:00 PM CDT Clinical Communication Virtual Review in [address] [phone] 11/20/2024 8:00 AM CDT Clinical Support Department of Oncology in [address] [phone] Polo Dwyer M.D. [address] [place] [phone] China Parikh M.S.W., L.I.C.S.W. [address] [place] [phone] 11/20/2024 10:50 AM CDT Lab Department of Laboratory Medicine and Pathology, [facility], in [address] [phone] Alisa Menjivar M.D. [address] [place] [phone] 11/20/2024 1:30 PM CDT Office Visit Department of Oncology in [address] [phone] Alisa Menjivar M.D. [address] [place] [phone] 11/20/2024 3:00 PM CDT Infusion Department of Oncology in [place], [place] [address] [place] [address] Alisa Menjivar M.D. [address] [place] [phone] 11/27/2024 7:30 AM CDT Lab Department of Laboratory Medicine and Pathology, [facility] in [place], [place] [address] [place] [address] Alisa Menjivar M.D. [address] [place] [phone] 11/27/2024 9:30 AM CDT Infusion Department of Oncology in [place], [place] [address] [place] [phone] Alisa Menjivar M.D. [address] [place] [phone] documented as of this encounter Visit Diagnoses Not on filedocumented in this encounter Additional Health Concerns Infection Onset Date Last Indicated Resolved Time Protective Environment 11/01/2024 11/01/2024 documented as of this encounter Care Teams Grinder And Plater Relationship Specialty Start Date End Date Elsewhere, Pcp PCP - General Internal Medicine 10/09/24 documented as of this encounter
--- OUTSIDE RECORDS SUMMARY | 2024-11-11 11:14 | XMS_ITS | Encounter Summary ---
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 [address] [place] [phone] Phone: tel: fax: Elisa Alva M.D. [address] [place] [phone] Phone: tel: fax: Referral ID Status Reason Start Date Expiration Date V isits Requested Visits Authorized [id number] Authorized 10/11/2024 04/12/2026 1 1 Encounter Details Date Type Department Care Team (Late st Contact Info) Description 10/11/2024 Clinical Communication [facility] [address] [place] [phone] Clari Daniel M.D. [address] [place] [phone] Social History Tobacco Use Types Packs/Day Years Used Date Smoking Tobacco: Former Smokeless Tobacco: Never Alcohol Use Standard Drinks/Week Comments Yes 3 (1 standard drink = 0.6 oz pur e alcohol) [facility] Utilities Answer Date Recorded In [...] your living situation today? I have a [facility] place to live 10/09/2024 Education Answer Date Recorded What is the highest level of school you have completed or the highest degree you have received? 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 [address] [place] [phone] Discharge Disposition: Home or Self Care 11/12/2024 2:15 PM CDT Office Visit Department of Cardiovascular Medicine in [address] [phone] Elisa Alva M.D. [address] [place] [phone] 11/19/2024 1:00 PM CDT Clinical Communication Virtual Review in [address] [phone] 11/20/2024 8:00 AM CDT Clinical Support Department of Oncology in [address] [phone] Polo wDyer M.D. [address] [place] [phone] China Parikh M.S.W., L.I.C.S.W. [address] [place] [phone] 11/20/2024 10:50 AM CDT Lab Department of Laboratory Medicine and Pathology, [facility], in [address] [phone] Alisa Menjivar M.D. [address] [place] [phone] 11/20/2024 1:30 PM CDT Office Visit Department of Oncology in [place], [place] [address] [place] [address] Alisa Menjivar M.D. [address] [place] [phone] 11/20/2024 3:00 PM CDT Infusion Department of Oncology in [place], [place] [address] [place] [phone] Alisa Menjivar M.D. [address] [place] [phone] 11/27/2024 7:30 AM CDT Lab Department of Laboratory Medicine and Pathology, [facility] in [place], [place] [address] [place] [phone] Alisa Menjivar M.D. [address] [place] [phone] 11/27/2024 9:30 AM CDT Infusion Department of Oncology in [place], [place] [address] [place] [phone] Alisa Menjivar M.D. [address] [place] [phone] Scheduled Referrals Name Type Priority Associated Diagnoses Order Schedule Cardiovascular Disease office visit (clinic) 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
--- OUTSIDE RECORDS SUMMARY | 2024-11-11 11:15 | XMS_ITS | Encounter Summary ---
Author Organization [facility] Address [address] [place] [address] Care Team Providers Care Prototype Machinist Name Role Phone Elsewhere, Pcp Primary Care Provider Unavailabl e Encounter Details Date Type Department Care Team (Late st Contact Info) Description 10/11/2024 Orders Only Department of Urology in [place], [place] [address] [place] [address] Charla Childress M.D. [address] [place] [address] Social History Tobacco Use Types Packs/Day Years Used Date Smoking Tobacco: Former Smokeless Tobacco: Never Alcohol Use Standard Drinks/Week Comments Yes 3 (1 standard drink = 0.6 oz pur e alcohol) [facility] Utilities Answer Date Recorded In the past 12 months has [facility] [employer], gas, oil, or water [employer] threatened to shut off services in your [...] your living situation today? I have a [facility] place to live 10/09/2024 Education Answer Date Recorded What is the highest level of school you have completed or the highest degree you have received? 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 [address] [place] [address] Discharge Disposition: Home or Self Care 11/12/2024 2:15 PM CDT Office Visit Department of Cardiovascular Medicine in [place], [place] [address] [place] [phone] Elisa Alva M.D. [address] [place] [phone] 11/19/2024 1:00 PM CDT Clinical Communication Virtual Review in [place], [place] 200 [place] [address] 11/20/2024 8:00 AM CDT Clinical Support Department of Oncology in [place], [place] [address] [place] [phone] Polo Dwyer M.D. [address] [place] [phone] China Parikh M.S.W., L.I.C.S.W. [address] [place] [phone] 11/20/2024 10:50 AM CDT Lab Department of Laboratory Medicine and Pathology, [facility] in [address] [phone] Alisa Menjivar M.D. [address] [place] [phone] 11/20/2024 1:30 PM CDT Office Visit Department of Oncology in [address] [phone] Alisa Menjivar M.D. [address] [place] [phone] 11/20/2024 3:00 PM CDT Infusion Department of Oncology in [address] [phone] Alisa Menjivar M.D. [address] [place] [phone] 11/27/2024 7:30 AM CDT Lab Department of Laboratory Medicine and Pathology, [facility] in [place], [place] [address] [place] [address] Alisa Menjivar M.D. [address] [place] [phone] 11/27/2024 9:30 AM CDT Infusion Department of Oncology in [place], [place] [address] [place] [address] Alisa Menjivar M.D. [address] [place] [phone] documented as of this encounter Visit Diagnoses Not on filedocumented in this encounter Care Teams Prototype Machinist Relationship Specialty Start Date End Date Elsewhere, Pcp PCP - General Internal Medicine 10/09/24 documented as of this encounter
--- OUTSIDE RECORDS SUMMARY | 2024-11-11 11:15 | XMS_ITS | Encounter Summary ---
Author Organization [facility] Address [address] [place] [phone] Care Team Providers Care V Belt Finisher Name Role Phone Elsewhere, Pcp Primary Care Provider Unavailabl e Encounter Details Date Type Department Care Team (Late st Contact Info) Description 11/01/2024 Orders Only Department of Oncology in [place], [place] [address] [place] [phone] Alisa Menjivar M.D. [address] [place] [phone] Social History Tobacco Use Types Packs/Day Years Used Date Smoking Tobacco: Former Smokeless Tobacco: Never Alcohol Use Standard Drinks/Week Comments Yes 3 (1 standard drink = 0.6 oz pur e alcohol) [facility] Utilities Answer Date Recorded In the past 12 months has [facility] [employer], gas, oil, or water [employer] threatened to shut off services in your [...] your living situation today? I have a [facility] place to live 10/09/2024 Education Answer Date Recorded What is the highest level of school you have completed or the highest degree you have received? 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 [address] [place] [phone] Discharge Disposition: Home or Self Care 11/12/2024 2:15 PM CDT Office Visit Department of Cardiovascular Medicine in [place], [place] [address] [place] [phone] Elisa Alva M.D. [address] [place] [phone] 11/19/2024 1:00 PM CDT Clinical Communication Virtual Review in [place], [place] 200 [place] [address] 11/20/2024 8:00 AM CDT Clinical Support Department of Oncology in [address] [phone] Polo Dwyer M.D. [address] [place] [phone] China Parikh M.S.W., L.I.C.S.W. [address] [place] [phone] 11/20/2024 10:50 AM CDT Lab Department of Laboratory Medicine and Pathology, [facility] in [address] [address] Alisa Menjivar M.D. [address] [place] [phone] 11/20/2024 1:30 PM CDT Office Visit Department of Oncology in [address] [phone] Alisa Menjivar M.D. [address] [place] [phone] 11/20/2024 3:00 PM CDT Infusion Department of Oncology in [address] [phone] Alisa Menjivar M.D. [address] [place] [phone] 11/27/2024 7:30 AM CDT Lab Department of Laboratory Medicine and Pathology, [facility] in [place], [place] [address] [place] [address] Alisa Menjivar M.D. [address] [place] [phone] 11/27/2024 9:30 AM CDT Infusion Department of Oncology in [place], [place] [address] [place] [address] Alisa Menjivar M.D. [address] [place] [address] documented as of this encounter Visit Diagnoses Not on filedocumented in this encounter Additional Health Concerns Infection Onset Date Last Indicated Resolved Time Protective Environment 11/01/2024 11/01/2024 documented as of this encounter Care Teams V Belt Finisher Relationship Specialty Start Date End Date Elsewhere, Pcp PCP - General Internal Medicine 10/09/24 documented as of this encounter
--- OUTSIDE RECORDS SUMMARY | 2024-11-11 11:15 | XMS_ITS | Encounter Summary ---
Author Organization [facility] Address [address] [place] [address] Care Team Providers Care Mail Weigher Name Role Phone Elsewhere, Pcp Primary Care Provider Unavailabl e Encounter Details Date Type Department Care Team (Late st Contact Info) Description 08/14/2024 Orders Only Department of Urology in [place], [place] [address] [place] [address] [facility], Provider, MD [facility] Social History [...] 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, ROLLER SHOP UTILITY WORKER, BERTA) 05/11/2020 Sex and Gender Information Value Date Recorded Sex Assigned at Male 09/04/2024 9:32 AM CDT 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 [address] [place] [phone] Discharge Disposition: Home or Self Care 11/12/2024 2:15 PM CDT Office Visit Department of Cardiovascular Medicine in [place], [place] [address] [place] [phone] Elisa Alva M.D. [address] [place] [phone] 11/19/2024 1:00 PM CDT Clinical Communication Virtual Review in [place], [place] 200 [place] [address] 11/20/2024 8:00 AM CDT Clinical Support Department of Oncology in [place], [place] [address] [place] [phone] Polo Dwyer M.D. [address] [place] [phone] China Parikh M.S.W., L.I.C.S.W. [address] [place] [phone] 11/20/2024 10:50 AM CDT Lab Department of Laboratory Medicine and Pathology, [facility] in [place], [place] [address] [place] [phone] Alisa Menjivar M.D. [address] [place] [phone] 11/20/2024 1:30 PM CDT Office Visit Department of Oncology in [place], [place] [address] [place] [phone] Alisa Menjivar M.D. [address] [place] [phone] 11/20/2024 3:00 PM CDT Infusion Department of Oncology in [place], [place] [address] [place] [phone] Alisa Menjivar M.D. [address] [place] [phone] 11/27/2024 7:30 AM CDT Lab Department of Laboratory Medicine and Pathology, [facility], in [place], [place] [address] [place] [phone] Alisa Menjivar M.D. [address] [place] [phone] 11/27/2024 9:30 AM CDT Infusion Department of Oncology in [place], [place] [address] [place] [phone] Alisa Menjivar M.D. [address] [place] [phone] documented as of this encounter Results * [...] 08/16/2024 10:57 AM CDT DTL Predicted Range [id number] mg/24 h 08/16/2024 10:57 AM CDT DTL Comment Micro done on <2.5 mL 08/16/2024 9:24 AM CDT DTL Urine (Urine, Indwelling Catheter) 08/16/2024 8:04 AM CDT 08/16/2024 8:56 AM CDT Callum Marcos M.D. LAB URINE ORDERABLES Final Result [facility] [address] [place] [address], [facility] DTL [facility] [address] [place] [address] documented in this encounter Visit Diagnoses Diagnosis Retention Urinary documented in this encounter Additional Health Concerns Infection Onset Date Last Indicated Resolved Time Protective Environment 11/01/2024 11/01/2024 documented as of this encounter Care Teams Mail Weigher Relationship Specialty Start Date End Date Elsewhere, Pcp PCP - General Internal Medicine 10/09/24 documented as of this encounter
--- NOTE | 2024-11-11 11:16 | ED.MALEGU ---
HPI - Male Genitourinary General Time Seen by Provider: 11:17 Date Seen: 11/11/24 Chief complaint: Urogenital Problems, Male Stated complaint: male urologic problems Time Seen by Provider: 11/11/24 11:15 Source: patient Mode of arrival: ambulatory Limitations: no limitations History of Present Illness HPI Narrative: 79-year-old male who presents today with decreased urine output. Patient has a Bryant catheter in place secondary to outlet obstruction and bladder cancer, has had this for several months, most recently changed 3 weeks ago in the emergency department. Noted some blood in the bag it last night and today no drainage into the bag although is having urine around the catheter. Denies abdominal pain, flank pain, fever, chills, nausea, vomiting. Related Data Home Medications ?Medication ?Instructions ?Recorded ?Confirmed finasteride 5 mg tablet mg 12/07/21 04/10/22 metoprolol succinate 25 mg 25 mg PO DAILY 12/07/21 11/11/24 tablet,extended release 24 hr rosuvastatin 20 mg tablet 20 mg PO 12/07/21 04/10/22 aspirin 81 mg chewable tablet 81 mg PO DAILY 10/23/24 11/11/24 (Jaiden Chewable Low Dose Aspirin) Previous Rx's ?Medication ?Instructions ?Recorded cephalexin 500 mg capsule 500 mg PO TID 10 days #30 caps 10/23/24 Allergies Allergy/AdvReac Type Severity Reaction Status Date / Time atorvastatin (From Lipitor) Allergy Unknown Verified 10/24/24 18:06 citalopram Allergy Unknown Verified 10/24/24 18:06 [facility] Social History Smoking Status: Former smoker What tobacco products do you use: cigarettes Smoking packs per day: 20 Smoking cigarettes per day: 400.0 Years smoked: 20 Smoking pack-years: 400.00 Smoking quit date/years: >15 years ago Do you use any of these nicotine containing products: None How often do you have a drink containing alcohol: 2-3 times a week How many standard drinks containing alcohol do you have on a typical day: 1 or 2 How often do you have six or more drinks on one occasion: Monthly AUDIT-C Alcohol total score: 5 Non-prescribed substance use: denies use service: No Exam Narrative: Exam Narrative: General: well nourished , NAD Head: Atraumatic and normocephalic ENT: External ears and external nose are normal Eyes: Conjunctiva clear, pupils are equal reactive, external ocular motions are intact Neck: Full spontaneous range of motion of the neck Lungs: No respiratory distress Musculoskeletal: No tenderness or deformity Neurologic: No gross focal neurologic deficits Skin: No rashes Psych: Mood and affect are appropriate : Urethral catheter in place with small amount of red blood in the tubing, no urine in the bag. When patient stands up, clear urine drops around the tube. Const: Vital Signs, click to edit/add: Vital Signs - 24 hr 11/11/24 11:25 Temperature 96.9 F L Pulse Rate [Pulse Oximeter] 72 Respiratory Rate 18 Blood Pressure [Ri ght Upper Arm] 117/76 Pulse Oximetry 94 Oxygen Delivery Me thod Room Air Course Course ED Course: Reviewed prior emergency department visit from October 24 which was for leaking Bryant catheter, has an indwelling Bryant poor outflow obstruction in urinary retention likely related to bladder cancer, at that time also found to have orchitis and started on Bactrim. Patient presents today with urinary retention in setting of indwelling catheter. Emptied the bag last night, had some blood in it that time and now catheter is not draining but he is having urine output around the bag. On exam, trace amount of red blood in the tubing but no blood urine in the bag, when he stands up patient does drain urine around the bag. Catheter will be changed and plan for discharge. No fever, abdominal pain, or systemic signs of infection. Reevaluation(s) Time of Reevaluation #1: 13:08 Reevaluation #1: Catheter placed in draining, there was a clot at the tip of the old catheter when removed. Patient is stable for discharge. Did consider urinalysis but patient has no secondary signs of infection. Also considered renal ultrasound or BMP to evaluate for obstructive nephropathy but patient has still been urinating around his catheter tube and not significantly retaining. Vital Signs Vital signs: Initial Vital Signs Temperature 96.9 F L 11/11/24 11:25 Temperature Source Temporal Artery Scan 11/11/24 11:25 Pulse Rate 72 11/11/24 11:25 Respiratory Rate 18 11/11/24 11:25 Blood Pressure 117/76 11/11/24 11:25 Blood Pressure Mean 89 11/11/24 11:25 Pulse Oximetry 94 11/11/24 11:25 Oxygen Delivery Method Room Air 11/11/24 11:25 Vital Signs Temperature 96.9 F L 11/11/24 11:25 Pulse Rate 72 11/11/24 11:25 Respiratory Rate 18 11/11/24 11:25 Blood Pressure 117/76 11/11/24 11:25 Pulse Oximetry 94 11/11/24 11:25 Oxygen Delivery Method Room Air 11/11/24 11:25 Temperature 96.9 F L 11/11/24 11:25 Pulse Rate 72 11/11/24 11:25 Respiratory Rate 18 11/11/24 11:25 Blood Pressure 117/76 11/11/24 11:25 Pulse Oximetry 94 11/11/24 11:25 Oxygen Delivery Method Room Air 11/11/24 11:25 Medications Administered Medications: Generic Name Dose Route Start Last Admin Trade Name Freq PRN Reason Stop Dose Admin Lidocaine HCl 6 ml 11/11/24 11:42 11/11/24 12:40 Lidocaine Hcl 2 % Jelly (Top) Sterile UR 6 ml ONCE PRN Administration Discharge Plan Discharge Clinical Impression: Gross hematuria, Malfunction of indwelling urinary catheter, Bladder outlet obstruction Patient Disposition: Home, Self-Care Condition: Improved Instructions: Bryant Catheter Placement and Care (ED) Additional Instructions: Follow-up with your urologist as scheduled Activity Level: No Restrictions Discharge Diet: Regular Prescriptions: No Action metoprolol succinate 25 mg tablet extended release 24 hr 25 mg PO DAILY finasteride 5 mg tablet rosuvastatin 20 mg tablet 20 mg PO aspirin [Jaiden Chewable Aspirin] 81 mg tablet,chewable 81 mg PO DAILY cephalexin 500 mg capsule 500 mg PO TID 10 Days Qty: 30 0RF Follow Up/Referrals: Osorio Galvan MD [Primary Care Provider, Family Practice] Stand Alone Forms: MyHealth Info Instructions
--- OUTSIDE RECORDS SUMMARY | 2024-11-11 11:16 | XMS_ITS | Clinical Summary ---
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 For routine questions regarding patient records, call [phone] during business hours, M-F 8:00 AM - 5:00 PM Central Time. Record requests for emergency care only can be directed to [phone] at any time.[facility] Allergies Active Allergy Reactions Criticality Noted Date Comments Atorvastatin Myalgia 05/06/2014 Citalopram Tinnitus 01/16/2020 Medications * This document contains information received from the source organization and may not represent a complete record from that organization. rosuvastatin (CRESTOR) 20 mg tablet Take 20 mg by mouth at bedtime. 03/19/20 20 Active nitroglycerin (NITROSTAT) 0.[address] 0.4 mg under the tongue every 5 (five) minutes as needed for chest pain (Max 3 doses). If no relief 5 minutes after the 1st dose, seek medical attention immediately. May take up to 2 additional doses if needed. 03/19/20 20 Active metoprolol succinate (TOPROL-XL) 25 mg 24 hr tablet Take 25 mg by mouth daily. 01/28/20 20 Active finasteride (PROSCAR) 5 mg tablet Take 1 tablet (5 mg total) by mouth daily. 30 tablet 04/16/19 21 Active aspirin [address] tablet Take 1 tablet (81 mg total) by mouth daily. 90 tablet 3 07/16/19 Active Additional Information Patient not taking.Reported on 09/27/2024 cyanocobalamin (Vitamin B-12) 1,000 mcg/mL injection Inject 1,000 mcg intramuscularly every 30 (thirty) days. 07/06/19 Active OLANZapine (ZyPREXA) 2.5 mg tabletIndicati ons:Malignant Neoplasm Of Bladder (HCC) Take 1 tablet (2.5 mg total) by mouth at bedtime as needed (nausea, vomiting). May take dose early if needed. 30 tablet 3 10/18/19 25 Active prochlorperazi ne (Compazine) 10 mg tabletIndicati ons:Malignant Neoplasm Of Bladder (HCC) Take 1 tablet (10 mg total) by mouth every 6 (six) hours as needed for nausea or vomiting. 30 tablet 3 10/18/19 Active ondansetron (Zofran) 8 mg tabletIndicati ons:Malignant Neoplasm Of Bladder (HCC) Take 1 tablet (8 mg total) by mouth every 8 (eight) hours as needed for nausea or vomiting (unrelieved by prochlorperazine). 30 tablet 3 10/18/19 25 Active triamcinolone (Kenalog) 0.1 % lotionIndicati ons:Malignant Neoplasm Of Bladder (HCC) Apply 1 Application topically 2 (two) times a day as needed (Rash, Itching). 180 mL 3 10/18/19 Active hydrOXYzine (Atarax) 25 mg tabletIndicati ons:Malignant Neoplasm Of Bladder (HCC) Take 1 tablet (25 mg total) by mouth 3 (three) times a day as needed for itching. 30 tablet 3 10/18/19 25 Active Active Problems Problem Noted Date Diagnosed Date Other Senior Living Current Drug Therapy 10/17/2024 Medication Therapy Senior Living Not Anticoagulant 0 10/17/2024 Senior Living Current Drug Therapy, Chemotherapy Angina Unstable 10/09/2024 [...] (09/05/2024): 2019 Atherosclerotic Heart Diseas e Of [place] Coronary Artery Without Angina Pectoris 03/07/2020 Overview (09/05/2024): 01/2020 Per Cardiology note from [facility]: CTCA shows severe OM1 (small) and distal RCA PODIATRY DOCTOR. We will proceed with medical therapy for chronic stable CAD. Hyperlipidemia 02/28/2012 Encounters * This document contains information received from the source organization and may not represent a complete record from that organization. Date Type Department Care Team Description 11/07/2024 1:00 PM CDT Infusion Department of Oncology in [place], [place] [address] [place] [phone] Alisa Menjivar M.D. 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 Malignant Neoplasm Of Bladder (HCC) (Primary Dx); Swelling Leg Left 11/07/2024 Clinical Communication Division of Hematology in [place], [place] [address] [place] [phone] Polo Dwyer M.D. Order Request 11/02/2024 Results Follow-Up Department of Oncology in [place], [place] [address] [place] [phone] Polo Dwyer M.D. CBC with Differential, Blood, Comprehensive Metabolic Panel, Thyroid Function [facility] 11/01/2024 8:00 AM CDT Education Department of Oncology in [place], [place] [address] [place] [phone] Polo Dwyer M.D. Lubale, Paula J, R.NMak Malignant Neoplasm Of Bladder (HCC) (Primary Dx) 11/01/2024 8:00 AM CDT Infusion Department of Oncology in [place], [place] [address] [place] [phone] Polo Dwyer M.D. Malignant Neoplasm Of Bladder (HCC) (Primary Dx); Medication Therapy Senior Living Not Anticoagulant; Senior Living Current Drug Therapy, Chemotherapy 11/01/2024 Orders Only Department of Oncology in [place], [place] [address] [place] [phone] Alisa Menjivar M.D. 10/30/2024 8:50 AM CDT - 10/30/2024 11:59 PM CDT Hospital Encounter Department of Laboratory Medicine in [address] [phone] Polo Dwyer M.D. 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 11/20 OV 10/29/2024 Clinical Communication Department of Oncology in [place], [place] [address] [place] [phone] Rosa Watters, R.N. 10/26/2024 Clinical Communication Department of Oncology in [place], [place] [address] [place] [phone] Rosa Watters, R.N. 10/23/2024 Clinical Communication Department of Oncology in [place], [place] [address] [place] [phone] Alisa Menjivar M.D. Order Request 10/17/2024 1:20 PM CDT Comprehensive Visit Department of Oncology in [place], [place] [address] [place] [phone] Alisa Menjivar M.D. 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 Mass Bladder Discharge Disposition: Home or Self Care 10/17/2024 8:30 AM CDT Comprehensive Visit Department of Urology in [place], [place] [address] [place] [phone] Pema Rojas M.D. Malignant Neoplasm Of Bladder (HCC) (Primary Dx) 10/13/2024 Documentation Department of Urology in [place], [place] [address] [place] [phone] Charla Childress M.D. 10/13/2024 Orders Only Department of Urology in [place], [place] [address] [place] [phone] Charla Childress M.D. 10/11/2024 Orders Only Department of Urology in [place], [place] [address] [place] [phone] Charla Childress M.D. 10/11/2024 Clinical Communication [facility] [address] [place] [phone] Clari Daniel M.D. 10/10/2024 10:25 PM CDT Ancillary Procedure Department of Cardiology 10/10/2024 1:26 PM CDT - 10/10/2024 2:41 PM CDT Surgery Division of Cardiovascular Diseases in [place], [place] [address] [place] [address] Grey Gomez M.D. CORONARY ANGIOGRAPHY 10/10/2024 Documentation Department of Urology in [place], [place] [address] [place] [phone] Charla Childress M.D. 10/09/2024 5:00 PM CDT - 10/12/2024 4:06 PM CDT Hospital Encounter [facility], [facility], Fifth Floor [address] [place] [address] Zuri Harvey P.A.-C., M.S. Spencer Marroquin M.D. Terry Oliveira M.D., Ph.D. Iva Ascencio M.D., Ph.D. Angina Unstable (HCC) (Primary Dx); Pain Chest; Decline Functional Status [R53.81]; Malaise [R53.81] Discharge Disposition: Home or Self Care 10/09/2024 4:15 PM CDT Office Visit Department of Cardiovascular Medicine in [place], [place] [address] [place] [phone] Elisa Alva M.D. Preoperative Exam (Primary Dx); Preoperative Examination Cardiovascular; Hyperlipidemia; Embolus Pulmonary Personal History; Preanesthetic Medical Exam; Angina Unstable (HCC) 10/09/2024 7:13 AM CDT - 10/09/2024 4:59 PM CDT Hospital Encounter Department of Radiology, [facility] in [place], [place] [address] [place] [phone] Ab Shabazz MPAS PTee.Maria Fernanda., M.S. Discharge Disposition: Home or Self Care 10/09/2024 7:13 AM CDT - 10/09/2024 4:59 PM CDT Hospital Encounter Department of Cardiovascular Diseases in [place], [place] [address] [place] [phone] Ab Shabazz MPAS, P.Estefania.-C., M.S. Discharge Disposition: Home or Self Care 10/09/2024 7:00 AM CDT - 10/09/2024 7:12 AM CDT Hospital Encounter Department of Radiology, [facility], in [place], [place] [address] [place] [phone] Ab Shabazz MPAS, PMakA.-C., M.S. Pain Chest Discharge Disposition: Home or Self Care 10/09/2024 Clinical Communication Department of Urology in [place], [place] [address] [place] [phone] Braulio Martins OPC PROC 10/02/2024 Orders Only Department of Urology in [place], [place] [address] [place] [phone] Charla Childress M.D. Mass Bladder (Primary Dx) 10/02/2024 Results Follow-Up Department of Urology in [place], [place] [address] [place] [phone] Charla Childress M.D. Bacterial Culture, Aerobic + Susceptibility, Urine, Urinalysis, with Microscopic: Urine, Midstream, Osmolality, Urine, Additional followed-up results: 3 10/01/2024 2:30 PM CDT - 10/01/2024 11:59 PM CDT Hospital Encounter Department of Radiology, [facility] in [place], [place] [address] [place] [phone] Shyam Musa M.D. Mass Bladder Discharge Disposition: Home or Self Care 10/01/2024 11:00 AM CDT Comprehensive Visit Preoperative Evaluation Center in [address] [phone] Shyam Musa M.D. Hebl, James R, M.D. 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 Mass Bladder; Hematuria Discharge Disposition: Home or Self Care 10/01/2024 Clinical Communication Department of Cardiovascular Medicine in [address] Patient Admitting RepresentativeMarco Antonio M.D. Triage (Dia, Anesthesia Preop # [id number]) 09/27/2024 3:15 PM CDT Clinical Communication Virtual Review in [place], [place] 200 [place] [phone] 09/05/2024 Orders Only Preoperative Evaluation Center in [place] [address] Chintan Stevens APRN, C.N.P., M.S.N. Preanesthetic Medical Exam (Primary Dx) 09/04/2024 10:00 AM CDT Telemedicine Department of Urology in [address] [phone] Callum Marcos M.D. Mass Bladder (Primary Dx); Hematuria 09/03/2024 2:30 PM CDT Procedure visit Department of Urology in [address] [phone] Shyam Musa M.D. Schaffer, Heidi L, APRN, C.N.P., D.N.P. Hematuria 09/03/2024 9:39 AM CDT - 09/03/2024 11:59 PM CDT Hospital Encounter Department of Radiology, [facility], in [address] [phone] Shyam Musa M.D. Hematuria Discharge Disposition: Home or Self Care 08/21/2024 Orders Only Department of Urology in [address] [phone] Shyam Musa M.D. 08/16/2024 10:30 AM CDT Lab Department of Urology in [address] [phone] Shyam Musa M.D. Dudley, Kathleen A, RMakNMak Hematuria 08/16/2024 9:30 AM CDT Comprehensive Visit Department of Urology in [place], [place] [address] [place] [address] Callum Marcos M.D. Hematuria (Primary Dx) 08/16/2024 7:30 AM CDT Lab Department of Urology in [place], [place] [address] [place] [address] Callum Marcos M.D. McKay, Roxane M, L.P.N. Retention Urinary (Primary Dx) 08/14/2024 Orders Only Department of Urology in [place], [place] [address] [place] [address] [facility], MD Constanza Retention Urinary from Last 3 Months Immunizations Immunization Administration Dates Next Due Influenza, Unspecified 01/02/2013 Social History Tobacco Use Types Packs/Day Years Used Date Smoking Tobacco: Former Smokeless Tobacco: Never Alcohol Use Standard Drinks/Week Comments Yes 3 (1 standard drink = 0.6 oz pur e alcohol) [facility] Utilities Answer Date Recorded In the past 12 months has [employer], gas, oil, or water [employer] threatened to shut off services in your [...] living situation today? I have a [facility] place to live 10/09/2024 Education Answer Date Recorded What is the highest level of school you have completed or the highest degree you have received? 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 Gender Identity Male 09/04/2024 9:32 AM CDT Sexual Orientation Straight 09/04/2024 9: 32 AM CDT Last Filed Vital Signs Vital Sign Reading Time Taken Comments Blood Pressure 130/60 11/07/2024 1:09 PM CDT Pulse 54 11/07/2024 1:09 PM CDT Temperature 36.3 C (97.3 F) 11/07/2024 1:09 PM CDT Respiratory Rate 17 11/01/2024 8:25 AM CDT Oxygen Saturation 96% 10/17/2024 1:1 1 PM CDT Inhaled Oxygen Concentration - - Weight 78.4 kg (172 lb 15.2 oz) 025 1:09 PM CDT Height 167.1 cm (5' 5.79) 10/17/2024 1 :11 PM CDT with shoes Body Mass Index 28.1 10/17/2024 1:11 PM CDT Plan of Treatment Upcoming Encounters Date Type Department Care Team (Late st Contact Info) Description 11/12/2024 9:30 AM CDT Appointment Department of Radiology, [facility], in [place], [place] [address] [place] [address] Alisa Menjivar M.D. [address] [place] [address] Discharge Disposition: Home or Self Care 11/12/2024 2:15 PM CDT Office Visit Department of Cardiovascular Medicine in [place], [place] [address] [place] [phone] Elisa Alva M.D. [address] [place] [phone] 11/19/2024 1:00 PM CDT Clinical Communication Virtual Review in [place], [place] 200 [place] [address] 11/20/2024 8:00 AM CDT Clinical Support Department of Oncology in [address] [phone] Polo Dwyer M.D. [address] [place] [phone] China Parikh, M.S.W., L.I.C.S.W. [address] [place] [phone] 11/20/2024 10:50 AM CDT Lab Department of Laboratory Medicine and Pathology, [facility] in [address] [phone] Alisa Menjivar M.D. [address] [place] [phone] 11/20/2024 1:30 PM CDT Office Visit Department of Oncology in [address] [phone] Alisa Menjivar M.D. [address] [place] [phone] 11/20/2024 3:00 PM CDT Infusion Department of Oncology in [address] [phone] Alisa Menjivar M.D. [address] [place] [address] 11/27/2024 7:30 AM CDT Lab Department of Laboratory Medicine and Pathology, [facility], in [place], [place] [address] [place] [phone] Alisa Menjivar M.D. [address] [place] [phone] 11/27/2024 9:30 AM CDT Infusion Department of Oncology in [place], [place] [address] [place] [phone] Alisa Menjivar M.D. [address] [place] [phone] Health Maintenance Due Date Last Done Comments RSV vaccine - (32-36 weeks) or 60+ years (1 - 1-dose 75+ series) 10/27/2018 Depression Screening (Annual PHQ-2) 03/28/2024 Fall Risk Screen (Annual) 03/28/2024 Influenza Vaccine (#1) 2024 , 01/11/2023, 12/28/2021, Additional history exists Glucose Test for Med Monitoring 11/07/2025 11/07/2024, 10/30/2024, 10/17/2024, Additional history exists Office Visit for Blood Pressure Check / Re-check 11/07/2025 11/07/2024 DTaP,Tdap,and Td Vaccines (3 - Td or Tdap) 04/10/2032 04/10/2022, 07/28/2012 Pneumococcal vaccine (50+ years) Completed 03/27/2018, 05/24/2016 Zoster Vaccines Completed 07/05/2018, 04/19/2018 Abdominal Aortic Aneurysm (AAA) Screen Discontinued 04/11/2020 COVID-19 Vaccine Completed 07/18/2024, , 05/31/2023, Additional history exists IPV Vaccines Aged Out No longer eligi ble based on patient's age to complete this topic Procedures Procedure Name Priority Date/Time Associated Diagnosis Comments COMPREHENSIVE METABOLIC PANEL, S/P Routine 11/07/2024 11:20 AM CDT Malignant Neoplasm Of Bladder (HCC) Medication Therapy 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 Not Anticoagulant 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 Current Drug Therapy, Chemotherapy CBC CHEMO - NO ALERTS Routine 11/07/2024 11:20 AM CDT Malignant Neoplasm Of Bladder (HCC) Medication Therapy Senior Living Not Anticoagulant 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 Current Drug Therapy, Chemotherapy THYROID FUNCTION CASCADE, S Routine 10/30/2024 9:03 AM CDT Malignant Neoplasm Of Bladder (HCC) Other 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 Current Drug Therapy COMPREHENSIVE METABOLIC PANEL, S/P Routine 10/30/2024 9:03 AM CDT Malignant Neoplasm Of Bladder (HCC) Medication Therapy 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 Not Anticoagulant 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 Current Drug Therapy, Chemotherapy CBC WITH DIFFERENTIAL, B Routine 10/30/2024 9:03 AM CDT Malignant Neoplasm Of Bladder (HCC) Medication Therapy Senior Living Not Anticoagulant 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 Current Drug Therapy, Chemotherapy CBC WITH DIFFERENTIAL, B Routine 10/17/2024 9:48 [...] CDT Pain Chest MICROSCOPIC MANUAL Routine 10/10/2024 5:41 AM CDT DIPSTICK, U Routine 10/10/2024 5:41 [...] CDT Mass Bladder MICROSCOPIC MANUAL Routine 10/01/2024 1:14 PM CDT PH, U Routine 10/01/2024 1:14 [...] outpatients) 09/03/2024 10:50 AM CDT Hematuria CYTOLOGY NON-PRESCHOOL ASSISTANT PRINCIPAL (SCHEDULED) Routine 08/16/2024 11:27 AM CDT Hematuria DIPSTICK, U Routine 08/16/2024 8:04 AM CDT [place] OSMOLALITY ASSAY URINE Routine 08/16/2024 8:04 AM CDT PH, RANDOM, U Routine 08/16/2024 8:04 AM CDT MICROSCOPIC MANUAL Routine 08/16/2024 8:04 AM CDT URINALYSIS WITH MICROSCOPIC Routine 08/16/2024 8:04 AM CDT Retention Urinary OUTSIDE CT BODY Routine 08/12/2024 12:[address] ABDOMEN PELVIS WITH IV CONTRAST RAD - Semiurgent (Fast; most ED patients; some inpatients) 04/11/2020 9:32 PM NON DESTRUCTIVE TESTING SCIENTIST from Last 3 Months or Most Recently Relevant to Health Maintenance Results * (ABNORMAL) CBC, Chemotherapy, No Alerts (11/07/2024 11:20 AM CDT) Hemoglobin 9.9(L) 13.2 - 16.6 g/dL 11/07/2024 12:06 PM CDT METH Platelet Count 282 135 - 317 x10(9)/L 11/07/2024 12:06 PM CDT METH Leukocytes 7.0 3.4 - 9.6 x10(9)/L 11/07/2024 12:06 PM CDT METH Neutrophils 4.47 1.56 - 6.45 x10(9)/L 11/07/2024 12:06 PM CDT PM Blood (Blood, Venous) 11/07/2024 11:20 AM CDT 11/07/2024 12:04 PM CDT Alisa Menjivar M.D. LAB BLOOD ADD-ON Final Result [facility] [address] [place] [address], [facility] METH [facility] [address] [place] [address] DHPM [facility] [address] [place] [address] * (ABNORMAL) Comprehensive Metabolic Panel (11/07/2024 11:20 AM CDT) Only the most recent of3 resultswithin the time period is included. [facility] Potassium, S 4.6 3.6 - 5.2 mmol/L [...] Menjivar M.D. LAB BLOOD ADD-ON Final Result [facility] [address] [place] [address], [facility] [address] [place] [address] * Thyroid Function [facility] (10/30/2024 9:03 AM CDT) TSH, Sensitive 1.1 0.3 - 4.2 mIU/L 10/30/2024 10:04 AM CDT JOSEFINA Blood (Blood, Venous) 10/30/2024 9:03 AM CDT 10/30/2024 9:06 AM CDT us Polo Dwyer M.D. LAB BLOOD ADD-ON Final Result [facility] [address] [place] [address], [place] JOSEFINA [facility] in [place] [address] [place] [address] * (ABNORMAL) CBC with Differential, Blood (10/30/2024 9:03 AM CDT) Only the most recent of3 resultswithin the time period is included. Pathologist [facility] Hemoglobin 10.1(L) 13.2 - 16.6 g/dL 10/30/2024 [...] M.D. LAB BLOOD ADD-ON Final Result [facility] [address] [place] [address], [facility] JOSEFINA [facility] in [place] [address] [place] [address] * (ABNORMAL) Renal Function Panel (10/12/2024 1:08 [...] Performing Organization Address City/[facility] de Phone Number [facility] [address] [place] [address], [place] DTL [facility] [address] [place] [address] * (ABNORMAL) CBC without Differential (10/12/2024 1:08 [...] LAB BLOOD ADD-ON Final Res ult [facility] [address] [place] [address], [place] DTL [facility] [address] [place] [address] * CT Lymph Node Biopsy (10/11/2024 12:52 [...] series 302, image 166. A total of [id number] cores were obtained from the lymph node [...] series 302, image 166. A total of [id number] cores were obtained from the lymph node [...] Immunohistochemic al stains were performed at [facility] (block A1). 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 Digital imaging was used in the diagnostic assessment of this case. (A) 10/15/2024 12:58 PM CDT DTL Tissue (Pelvis, Left) 10/11/2024 11:32 AM CDT us Mila Burgess M.D. LAB SURG PATH ORDERABLES F inal Result [facility] [address] [place] [address], [facility] DTL [address] [place] [address] * Specimen-Cardiology Encounter Image Exam (10/10/2024 10:25 PM CDT) 10/10/2024 10:2 4 PM CDT Narrative [facility] - 10/10/2024 10:27 PM CDT This order has been created and auto-finalized to support the import of images acquired without order. The clinical documentation to support these images can be found on the encounter that produced images. us Provider Not In System IMG NON RAD IMAGING PROCE DEAN Final Result [facility] NA * CORONARY ANGIOGRAPHY (10/10/2024 4:18 PM CDT) Anatomical Region Laterality Modality X-Ray Angiograph y 10/10/2024 3:43 PM CDT Narrative 10/10/2024 4:58 PM CDT For the complete report, see the Order-Level Documents. PROCEDURE TYPES 1. CORONARY ANGIOGRAPHY FINAL DIAGNOSIS 1. Severe coronary artery atherosclerosis 2. PODIATRY DOCTOR (Chronic Total Occlusion) 3. Coronary artery [...] disease as well. There is an RCA PODIATRY DOCTOR with good left to right collaterals. [...] left anterior descending artery and second septal line mechanic. The right posterolateral segment is 99% obstructed [...] DIAGNOSIS 1. Severe coronary artery atherosclerosis 2. PODIATRY DOCTOR (Chronic Total Occlusion) 3. Coronary artery [...] LCx diseaseas well. There is an RCA PODIATRY DOCTOR with good left to right collaterals.Discussed [...] distal left anterior descendingartery and second septal line mechanic. The right posterolateral segment is 99% obstructed [...] ORDERABLES Final Resu lt Performing Organization Address City/Select [facility] Co de Phone Number [facility] [address] [place], [place] [address] [place] [address] * (ABNORMAL) Microscopic Manual (10/10/2024 5:41 AM [...] ORDERABLES Final Resu lt Performing Organization Address City/[facility]/ZIP Co de Phone Number [facility] [address] [place] [address], [facility] [place] [address] * pH, Urine (10/10/2024 5:41 AM CDT) Only the most recent of2 resultswithin the time period is included. pH, U 5.8 4.5 - 8.0 10/10/2024 6:1 9 AM CDT DT Urine 10/10/2024 5:41 AM CDT 10/10/2024 5:58 AM CDT us Mario Musa M.D. LAB URINE ORDERABLES Final [facility] Performing Organization Address [facility] Co de Phone Number [facility] [address] [place] [address], [place] [address] * Osmolality, Urine (10/10/2024 5:41 AM CDT) Only the most recent of2 resultswithin the time period is included. Pathologist [facility] Osmolality, U 215 150 - 1150 mOsm/kg 10/10/2024 6:19 AM CDT DT Urine 10/10/2024 5:41 AM CDT 10/10/2024 5:58 AM CDT us Mario Musa M.D. LAB URINE ORDERABLES Final [facility] Performing Organization Address [facility] de Phone Number [facility] [address] [place] [address], [place] [address] * (ABNORMAL) Urinalysis, with Microscopic: Urine, Catheter [...] URINE ORDERABLES Final Result Performing Organization Address [facility] de Phone Number [facility] [address] [place] [address], [facility] DTL [facility] [address] [place] [address] * ECG 12 Lead (10/10/2024 4:13 AM CDT) Only the most recent of6 resultswithin the time period is included. Ventricular Rate ECG/Min 58 BPM MUSE [place] Interval 168 ms MUSE QRSD Interval 76 ms MUSE QT Interval 418 ms MUSE QTC Interval 410 ms MUSE P [place] 79 degrees MUSE R [place] 24 degrees MUSE T Wave [place] 17 degrees MUSE 10/10/2024 4:13 AM CDT [...] ORDERABLES Final Resu lt Performing Organization Address City/[facility]/ZIP Co de Phone Number MUSE NA * [...] and management can be found on the [employer] site. Link [email or web address].[facility].org/topic/clinical-answers/[email or web address]/[email or web address] Procedure Note Judy Ibrahim M.D. - 10/10/2024 [...] thrombosis and management can be found on the[employer] site. Linkhttps://askmaSocialCrunchexpert.[facility]/topic/clinical-answers/[email or web address]/cpm -2049 1725 IMPRESSION: 1. Negative for acute [...] M.D. LAB BLOOD ADD-ON Final Res ult [facility] [address] [place] [address], [facility] [address] [place] [address] * Type and Screen (with Reflex Antibody ID) (10/09/2024 11:25 PM CDT) ABORh O Neg Not applicable 10/10/2024 1:17 AM CDT STRM Antibody Screen Negative Negative 10/10/2024 1:30 AM CDT STRM Type & Screen Expiration 10/12/2024 23:59 10/10/2024 1:17 AM CDT STRM Testing Location [place] DEFAULT 10/10/2024 12:50 AM CDT STRM Blood (Blood, Venous) 10/09/2024 11:25 PM CDT 10/10/2024 12:50 AM CDT Mila Burgess M.D. LAB BLOOD BANK TEST ORDERA BLES Final Result Performing Organization Address [facility] de Phone Number [facility] [address] [place] [address], [facility] STRM [facility] [address] [place] [address] * (ABNORMAL) Troponin T, 2 Hour with [...] TROPONIN Fi nal Result Performing Organization Address [facility] de Phone Number [facility] [address] [place] [address], [facility] STMA [facility] [address] [place] [address] * DX Chest AP or PA and [...] Reflex Biomarker Panel (10/09/2024 5:25 PM CDT) [facility] Troponin T, Baseline, 5th gen 33(H) <=15 ng/L 10/09/2024 6:22 PM CDT STMA Blood (Blood, Venous) 10/09/2024 5:25 PM CDT 10/09/2024 5:31 PM CDT Zuri Harvey P.A.-C., M.S. LAB BLOOD TROPONIN Fi nal Result [facility] [address] [place] [address], [facility] [address] [place] [address] * APTT (Activated Partial Thromboplastin Time) (10/09/2024 5:25 PM CDT) [facility] Activated Partial Thrombopl Time, P 28 25 - 37 sec 10/09/2024 5:41 PM CDT STMA Blood (Blood, Venous) 10/09/2024 5:25 PM CDT 10/09/2024 5:31 PM CDT Zuri Harvey P.A.-C., M.S. LAB BLOOD ADD-ON Gabriella l Result Performing Organization Address [facility] Co de Phone Number [facility] [address] [place] [address], [facility] [address] [place] [address] * Prothrombin Time (PT) (10/09/2024 5:25 PM [...] ADD-ON Gabriella l Result Performing Organization Address [facility] de Phone Number [facility] [address] [place] [address], [facility] [address] [place] [address] * (ABNORMAL) Basic Metabolic Panel (10/09/2024 5:25 [...] M.S. LAB BLOOD ADD-[place] [address] * NM Cardiac Perfusion Rest and Stress SPECT (10/09/2024 8:57 AM CDT) 10/09/2024 7:13 AM CDT Narrative CV MERGE - 10/09/2024 10:42 AM CDT See PDF For Result Procedure Note Taina Galloway M.D. - 10/09/2024 See PDF For Result Ab ABBOTT P.A.-C., M.S. IMG NM LEO MORAN Final Result CV MERGE NA * CT Chest without IV [...] aorta, measuring 45 mm. Shyam Musa M.D. [facility] PROCEDURES Final Resul t * (ABNORMAL) Bacterial Culture, Aerobic + Susceptibility, Urine (10/01/2024 1:14 PM CDT) Urine Culture Multiple organisms >10,000 cfu/mL present suggesting probable contamination (A) 10/02/2024 11:08 AM CDT DTL Urine (Urine, Midstream) 10/01/2024 1:14 PM CDT 10/01/2024 2:46 PM CDT Comment:Specimen Source Site : Urine Shyam Musa M.D. LAB MICROBIOLOGY - GENERAL OR DERABLES Final Result Performing Organization Address City/State/[facility] Co de Phone Number [facility] [address] [place] [address], [facility] DTL [facility] [address] [place] [address] * [place] CYSTOURETHROSCOPY (09/03/2024 2:30 PM CDT) Narrative Es Caballero APRN C.N.P., D.N.P. - 09/03/2024 2:30 PM CDT Es Caballero APRN C.N.P., D.N.P. 09/03/2024 3:01 PM URO Cystoscopy (general) Performed by: Es Caballero APRN, C.N.P., D.N.P. Authorized by: Shyam Musa M.D. Care team members present 1. Es Caballero APRN C.N.P., D.N.P. IMPRESSION suspicious mass and hematuria [...] the right anterolateral pelvic side wall (series [id number] image 342). Bryant catheter. Retroperitoneal and bilateral [...] abuts the rightanterolateral pelvic side wall (series [id number] image 342). Foleycatheter. Retroperitoneal and bilateral pelvic [...] PROCEDURES Final Resul t * (ABNORMAL) Cytology Non-PRESCHOOL ASSISTANT PRINCIPAL (Scheduled) (08/16/2024 11:27 AM CDT) (A) 2:52 [...] ORDERABLES Gabriella l Result Performing Organization Address [facility]/[place] [address] * Osmolality, Urine (08/16/2024 8:04 AM CDT) Osmolality, U 539 150 - 1150 mOsm/kg 08/16/2024 9:25 AM CDT DTL Urine 08/16/2024 8:04 AM CDT 08/16/2024 8:56 AM CDT Soft Results Interface LAB URINE ORDERABLES Gabriella l Result Performing Organization Address City/[facility]/[place]IP [place] [address] * pH, Random, Urine (08/16/2024 8:04 AM CDT) pH, Random, U 5.2 4.5 - 8.0 08/16/2024 9:25 AM CDT DTL Urine 08/16/2024 8:04 AM CDT 08/16/2024 8:56 AM CDT us Soft Results Interface LAB URINE ORDERABLES Gabriella l Result [facility] [address] [place] [address], [place] DTL [facility] [address] [place] [address] * Outside CT Body (08/12/2024 12:45 PM CDT) Narrative [facility] - 08/21/2024 9:49 AM CDT This order has been created and auto-finalized to support the import of outside images. If available, original interpretation can be found on the Media Tab in Chart Review, in Document Viewer, as an image in Fast OrientationityView or as an Addendum. If a re-interpretation or overread is required please follow defined workflow. us Provider Not In System IMG CT PROCEDURES Final R esult Performing Organization Address City/[facility] Co de Phone Number I[facility] NA * CT Abdomen Pelvis with IV Contrast (04/11/2020 9:32 PM NON DESTRUCTIVE TESTING SCIENTIST) Anatomical Region Laterality Modality Abdomen, Pelvis, Abdominal R ST LOS, Abdominal ARZ LOS, Abdominal FLA LOS N/A Computed Tomograp hy, Computed Tomography 04/11/2020 9:41 PM NON DESTRUCTIVE TESTING SCIENTIST Impressions 04/11/2020 10:07 PM NON DESTRUCTIVE TESTING SCIENTIST 1. No evidence of recent or active hemorrhage within the abdomen or pelvis. 2. Bladder wall thickening and adjacent stranding and mild ureterectasis and periureteral stranding of the lower ureters is nonspecific but can be seen in the setting of cystitis with early ascending infection. 3. Acute pulmonary embolism in the left lower lobe. Narrative 04/11/2020 10:07 PM NON DESTRUCTIVE TESTING SCIENTIST EXAM: CT ABDOMEN PELVIS WITH IV CONTRAST [...] lung. Findings were discussed with Dr. Fritz ([phone]) at 10:06 PM on 04/11/2020.. Procedure Note [...] lowerlung. Findings were discussed with Dr. Fritz ([id number]) at 10:06 PM on04/11/2020.. IMPRESSION: 1. No [...] or Most Recently Relevant to Health Maintenance Additional Health Concerns Infection Onset Date Last Indicated Protective Environment 11/01/2024 Insurance MEDICARE [facility] Advance Directives For more information, please contact: [phone] * Full Code (Latest Code Status on File) Date Activated Date Inactivated Comments 10/09/2024 9:06 PM 10/12/2024 6:11 PM Question Answer Comments Full Code: Discussed * Full Code Date Activated Date Inactivated Comments 04/12/2020 1:07 PM 04/15/2020 6:07 PM Question Answer Comments Full Code: Discussed 04/12/2020 Care Teams Stringing Machine Tender Relationship Specialty Start Date End Date Elsewhere, Pcp PCP - General Internal Medicine 10/09/24
--- OUTSIDE RECORDS SUMMARY | 2024-11-11 11:16 | XMS_ITS | Encounter Summary ---
Author Organization [facility] Address [address] [place] [address] Care Team Providers Care Insurance Sales Professional Name Role Phone Elsewhere, Pcp Primary Care Provider Unavailabl e Reason for Visit * Reason Onset Date Comments 11/20 OV 10/29/2024 Encounter Details Date Type Department Care Team (Late st Contact Info) Description 10/29/2024 Clinical Communication Division of Hematology in [place], [place] [address] [place] [phone] Polo Dwyer M.D. [address] [place] [phone] 11/20 OV Social History Tobacco Use Types Packs/Day Years Used Date Smoking Tobacco: Former Smokeless Tobacco: Never Alcohol Use Standard Drinks/Week Comments Yes 3 (1 standard drink = 0.6 oz pur e alcohol) [facility] Utilities Answer Date Recorded In the past 12 months has [facility] [employer], gas, oil, or water [employer] threatened to shut off services in your [...] your living situation today? I have a [facility] place to live 10/09/2024 Education Answer Date Recorded What is the highest level of school you have completed or the highest degree you have received? 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 [address] [place] [phone] Discharge Disposition: Home or Self Care 11/12/2024 2:15 PM CDT Office Visit Department of Cardiovascular Medicine in [place], [place] [address] [place] [phone] Elisa Alva M.D. [address] [place] [phone] 11/19/2024 1:00 PM CDT Clinical Communication Virtual Review in [place], [place] 200 [place] [address] 11/20/2024 8:00 AM CDT Clinical Support Department of Oncology in [place], [place] [address] [place] [phone] Polo Dwyer M.D. [address] [place] [phone] China Parikh M.S.W., L.I.C.S.W. [address] [place] [phone] 11/20/2024 10:50 AM CDT Lab Department of Laboratory Medicine and Pathology, [facility] in [place], [place] [address] [place] [phone] Alisa Menjivar M.D. [address] [place] [phone] 11/20/2024 1:30 PM CDT Office Visit Department of Oncology in [place], [place] [address] [place] [phone] Alisa Menjivar M.D. [address] [place] [phone] 11/20/2024 3:00 PM CDT Infusion Department of Oncology in [place], [place] [address] [place] [phone] Alisa Menjivar M.D. [address] [place] [phone] 11/27/2024 7:30 AM CDT Lab Department of Laboratory Medicine and Pathology, [facility], in [place], [place] [address] [place] [address] Alisa Menjivar M.D. [address] [place] [phone] 11/27/2024 9:30 AM CDT Infusion Department of Oncology in [place], [place] [address] [place] [phone] Alisa Menjivar M.D. [address] [place] [phone] documented as of this encounter Visit Diagnoses Not on filedocumented in this encounter Additional Health Concerns Infection Onset Date Last Indicated Resolved Time Protective Environment 11/01/2024 11/01/2024 documented as of this encounter Care Teams Insurance Sales Professional Relationship Specialty Start Date End Date Elsewhere, Pcp PCP - General Internal Medicine 10/09/24 documented as of this encounter
--- OUTSIDE RECORDS SUMMARY | 2024-11-11 11:16 | XMS_ITS | Encounter Summary ---
Author Organization [facility] Address [address] [place] [address] Care Team Providers Care Catcher Helper Name Role Phone Elsewhere, Pcp Primary Care Provider Unavailabl e Encounter Details Date Type Department Care Team (Late st Contact Info) Description 10/26/2024 Clinical Communication Department of Oncology in [place], [place] [address] [place] [phone] Rosa Watters, RMakN. Social History Tobacco Use Types Packs/Day Years Used Date Smoking Tobacco: Former Smokeless Tobacco: Never Alcohol Use Standard Drinks/Week Comments Yes 3 (1 standard drink = 0.6 oz pur e alcohol) [facility] Utilities Answer Date Recorded In the past 12 months has [facility] [employer], gas, oil, or water company threatened to [...] your living situation today? I have a [facility] place to live 10/09/2024 Education Answer Date Recorded What is the highest level of school you have completed or the highest degree you have received? 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 200 [place] [address] Discharge Disposition: Home or Self Care 11/12/2024 2:15 PM CDT Office Visit Department of Cardiovascular Medicine in [place], [place] [address] [place] [address] Elisa Alva M.D. 200 [place] [address] 11/19/2024 1:00 PM CDT Clinical Communication Virtual Review in [place], [place] 200 [place] [address] 11/20/2024 8:00 AM CDT Clinical Support Department of Oncology in [place], [place] [address] [place] [phone] Polo Dwyer M.D. [address] [place] [phone] China Parikh M.S.W., L.I.C.S.W. [address] [place] [phone] 11/20/2024 10:50 AM CDT Lab Department of Laboratory Medicine and Pathology, [facility] in [address] [phone] Alisa Menjivar M.D. [address] [place] [phone] 11/20/2024 1:30 PM CDT Office Visit Department of Oncology in [address] [phone] Alisa Menjivar M.D. [address] [place] [phone] 11/20/2024 3:00 PM CDT Infusion Department of Oncology in [address] [phone] Alisa Menjivar M.D. [address] [place] [phone] 11/27/2024 7:30 AM CDT Lab Department of Laboratory Medicine and Pathology, [facility] in [place], [place] [address] [place] [phone] Alisa Menjivar M.D. [address] [place] [address] 11/27/2024 9:30 AM CDT Infusion Department of Oncology in [place], [place] [address] [place] [address] Alisa Menjivar M.D. [address] [place] [phone] documented as of this encounter Visit Diagnoses Not on filedocumented in this encounter Additional Health Concerns Infection Onset Date Last Indicated Resolved Time Protective Environment 11/01/2024 11/01/2024 documented as of this encounter Care Teams Catcher Helper Relationship Specialty Start Date End Date Elsewhere, Pcp PCP - General Internal Medicine 10/09/24 documented as of this encounter
--- OUTSIDE RECORDS SUMMARY | 2024-11-11 11:16 | XMS_ITS | Encounter Summary ---
Author Organization [facility] Address [address] [place] [address] Care Team Providers Care Cloth Wire Weaver Name Role Phone Elsewhere, Pcp Primary Care Provider Unavailabl e Encounter Details Date Type Department Care Team (Late st Contact Info) Description 10/29/2024 Clinical Communication Department of Oncology in [place], [place] [address] [place] [address] Rosa Watters, RMakN. 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 200 [place] [address] Discharge Disposition: Home or Self Care 11/12/2024 2:15 PM CDT Office Visit Department of Cardiovascular Medicine in [place], [place] [address] [place] [address] Elisa Alva M.D. 200 [place] [address] 11/19/2024 1:00 PM CDT Clinical Communication Virtual Review in [place], [place] 200 [place] [address] 11/20/2024 8:00 AM CDT Clinical Support Department of Oncology in [place], [place] [address] [place] [phone] Polo Dwyer M.D. [address] [place] [phone] China Parikh M.S.W., L.I.C.S.W. [address] [place] [phone] 11/20/2024 10:50 AM CDT Lab Department of Laboratory Medicine and Pathology, [facility] in [address] [phone] Alisa Menjivar M.D. [address] [place] [phone] 11/20/2024 1:30 PM CDT Office Visit Department of Oncology in [address] [phone] Alisa Menjivar M.D. [address] [place] [phone] 11/20/2024 3:00 PM CDT Infusion Department of Oncology in [address] [phone] Alisa Menjivar M.D. [address] [place] [phone] 11/27/2024 7:30 AM CDT Lab Department of Laboratory Medicine and Pathology, [facility] in [place], [place] [address] [place] [phone] Alisa Menjivar M.D. [address] [place] [address] 11/27/2024 9:30 AM CDT Infusion Department of Oncology in [place], [place] [address] [place] [address] Alisa Menjivar M.D. [address] [place] [address] documented as of this encounter Visit Diagnoses Not on filedocumented in this encounter Additional Health Concerns Infection Onset Date Last Indicated Resolved Time Protective Environment 11/01/2024 11/01/2024 documented as of this encounter Care Teams Cloth Wire Weaver Relationship Specialty Start Date End Date Elsewhere, Pcp PCP - General Internal Medicine 10/09/24 documented as of this encounter
--- OUTSIDE RECORDS SUMMARY | 2024-11-11 11:16 | XMS_ITS | Clinical Summary ---
Author Organization [employer] Address [address], [place] [address] Care Team Providers Care Private Client Advisor Name Role Phone Osorio Galvan MD Primary Care Provider [phone] Source Comments You are receiving this document as you are listed as the primary care provider,follow-up provider, or the patient has been referred to you for consultation.This is in compliance with the Medicare andMount [facility] Health Systemcaid EHR Incentive Program,which states Providers who transition their patient to another setting of careor provider of care or refers their patient to another provider of care shouldprovide summary care record for each transition of care or referral. 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 We will proceed with medical therapy for [...] complete this topic Insurance MEDICARE Care Teams Private Client Advisor Relationship Specialty Start Date End Date O[place] [address] PCP - General Family Practice 12/14/21
--- OUTSIDE RECORDS SUMMARY | 2024-11-11 11:17 | XMS_ITS ---
Author Organization [facility] Address [address] [place] [address] Care Team Providers Care Supplier Engineer Name Role Phone Elsewhere, Pcp Primary Care Provider Unavailabl e Active Problems * This document contains information received from the source organization and may not represent a complete record from that organization. Problem Noted Date Diagnosed Date Other Long Term Acute Care Registered Nurse Current Drug Therapy 10/17/2024 Medication Therapy Long Term Acute Care Registered Nurse Not Anticoagulant 0 10/17/2024 Long Term Acute Care Registered Nurse Current Drug Therapy, Chemotherapy Angina Unstable 10/09/2024 Pain Chest 10/09/2024 Malignant Neoplasm Of Bladder 09/04/2024 Cancer Staging:Clinical:Stage CHANTEL(cT3, pM1a) - Signed by Alisa Mejnivar M.D. 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 We will proceed with medical therapy for chronic stable CAD. Hyperlipidemia 02/28/2012 Current Treatment and Therapy Plans Enfortumab vedotin-ejfv / Pembrolizumab* Plan Start Date:10/16/2024 Plan Provider:Polo Dwyer M.D. 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)Medication Therapy Long Term Acute Care Registered Nurse Not AnticoagulantLong Term Current Drug Therapy, Chemotherapy Treatment Medications Current Day (Day 1 , Cycle 2 - Planned for 11/22/2024) Next Day (Day 8, Cycle 2 - Planned for 11/29/2024) enfortumab vedotin-ejfv (Padcev)enfortumab vedotin-ejfv (Padcev) IVPBpembrolizumab (Keytruda) enfortumab vedotin-ejfv 70 mg in NaCl 0.9% 107 mL IVPB (Padcev)pembrolizumab 100 mg in NaCl 0.9% 54 mL IVPB (Keytruda) enfortumab vedotin-ejfv 70 mg in NaCl 0.9% 107 mL IVPB (Padcev) Vascular Access Patency - Peripheral Intravenous Catheter and Rapid Infusion Catheter* Plan Start Date:11/01/2024 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 Past Treatment and Therapy Plans No past plan information found.
--- OUTSIDE RECORDS SUMMARY | 2024-11-11 11:17 | XMS_ITS | Encounter Summary ---
Author Organization [facility] Address [address] [place] [address] Care Team Providers Care Mail Sorter And Delivery Name Role Phone Elsewhere, Pcp Primary Care Provider Unavailabl e Reason for Visit * Reason Onset Date Comments Order Request 11/07/2024 Encounter Details Date Type Department Care Team ([facility] st Contact Info) Description 11/07/2024 Clinical Communication Division of Hematology in [place], [place] [address] [place] [phone] Polo Dwyer M.D. [address] [place] [phone] Order Request Social History Tobacco Use Types Packs/Day Years Used Date Smoking Tobacco: Former Smokeless Tobacco: Never Alcohol Use Standard Drinks/Week Comments Yes 3 (1 standard drink = 0.6 oz pur e alcohol) [facility] Utilities Answer Date Recorded In the past 12 months has [facility] [employer], gas, oil, or water [employer] threatened to shut off services in your [...] your living situation today? I have a [facility] place to live 10/09/2024 Education Answer Date Recorded What is the highest level of school you have completed or the highest degree you have received? 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 [address] [place] [phone] Discharge Disposition: Home or Self Care 11/12/2024 2:15 PM CDT Office Visit Department of Cardiovascular Medicine in [place], [place] [address] [place] [phone] Elisa Alva M.D. [address] [place] [phone] 11/19/2024 1:00 PM CDT Clinical Communication Virtual Review in [place], [place] 200 [place] [address] 11/20/2024 8:00 AM CDT Clinical Support Department of Oncology in [place], [place] [address] [place] [phone] Polo Dwyer M.D. [address] [place] [phone] China Parikh, M.S.W., L.I.C.S.W. [address] [place] [phone] 11/20/2024 10:50 AM CDT Lab Department of Laboratory Medicine and Pathology, [facility] in [place], [place] [address] [place] [phone] Alisa Menjivar M.D. [address] [place] [phone] 11/20/2024 1:30 PM CDT Office Visit Department of Oncology in [place], [place] [address] [place] [phone] Alisa Menjivar M.D. [address] [place] [phone] 11/20/2024 3:00 PM CDT Infusion Department of Oncology in [place], [place] [address] [place] [phone] Alisa Menjivar M.D. [address] [place] [phone] 11/27/2024 7:30 AM CDT Lab Department of Laboratory Medicine and Pathology, [facility], in [place], [place] [address] [place] [phone] Alisa Menjivar M.D. [address] [place] [phone] 11/27/2024 9:30 AM CDT Infusion Department of Oncology in [place], [place] [address] [place] [phone] Alisa Menjivar M.D. [address] [place] [phone] documented as of this encounter Visit Diagnoses Not on filedocumented in this encounter Additional Health Concerns Infection Onset Date Last Indicated Resolved Time Protective Environment 11/01/2024 11/01/2024 documented as of this encounter Care Teams Mail Sorter And Delivery Relationship Specialty Start Date End Date Elsewhere, Pcp PCP - General Internal Medicine 10/09/24 documented as of this encounter
--- OUTSIDE RECORDS SUMMARY | 2024-11-11 11:17 | XMS_ITS | Encounter Summary ---
Author Organization [facility] Address [address] [place] [address] Care Team Providers Care Knurling Machine Operator Name Role Phone Elsewhere, Pcp Primary Care Provider Unavailabl e Encounter Details Date Type Department Care Team (Late st Contact Info) Description 11/02/2024 Results Follow-Up Department of Oncology in [place], [place] [address] [place] [address] Polo Dwyer M.D. [address] [place] [phone] CBC with Differential, Blood, Comprehensive Metabolic Panel, Thyroid Function [place] Social History Tobacco Use Types Packs/Day Years Used Date Smoking Tobacco: Former Smokeless Tobacco: Never Alcohol Use Standard Drinks/Week Comments Yes 3 (1 standard drink = 0.6 oz pur e alcohol) [facility] Utilities Answer Date Recorded In the past 12 months has e [employer], gas, oil, or water [employer] threatened to shut off services in your [...] 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, OD GRINDER OPERATOR, BERTA) 05/11/2020 Sex and Gender Information Value Date Recorded Sex Assigned at Male 09/04/2024 9:32 AM CDT 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 - 11/02/2024 9:22 AM CDT Labs previously reviewed. Anemia stable from prior. Creatinine has improved. Otherwise CMP and TSH are within normal limits. No care changes indicated at this time. documented in this encounter Plan of Treatment Upcoming Encounters Date Type Department Care Team (Late st Contact Info) Description 11/12/2024 9:30 AM CDT Appointment Department of Radiology, [facility], in [place], [place] [address] [place] [phone] Alisa Menjivar M.D. [address] [place] [phone] Discharge Disposition: Home or Self Care 11/12/2024 2:15 PM CDT Office Visit Department of Cardiovascular Medicine in [place], [place] [address] [place] [phone] Elisa Alva M.D. [address] [place] [phone] 11/19/2024 1:00 PM CDT Clinical Communication Virtual Review in [place], [place] 200 [place] [phone] 11/20/2024 8:00 AM CDT Clinical Support Department of Oncology in [address] [phone] Polo Dwyer M.D. [address] [place] [phone] China Parikh M.S.W., L.I.C.S.W. [address] [place] [phone] 11/20/2024 10:50 AM CDT Lab Department of Laboratory Medicine and Pathology, [facility] in [address] [phone] Alisa Menjivar M.D. [address] [place] [phone] 11/20/2024 1:30 PM CDT Office Visit Department of Oncology in [address] [phone] Alisa Menjivar M.D. [address] [place] [phone] 11/20/2024 3:00 PM CDT Infusion Department of Oncology in [place], [place] [address] [place] [phone] Alisa Menjivar M.D. [address] [place] [phone] 11/27/2024 7:30 AM CDT Lab Department of Laboratory Medicine and Pathology, [facility] in [place], [place] [address] [place] [phone] Alisa Menjivar M.D. [address] [place] [phone] 11/27/2024 9:30 AM CDT Infusion Department of Oncology in [place], [place] [address] [place] [phone] Alisa Menjivar M.D. [address] [place] [phone] documented as of this encounter Visit Diagnoses Not on filedocumented in this encounter Additional Health Concerns Infection Onset Date Last Indicated Resolved Time Protective Environment 11/01/2024 11/01/2024 documented as of this encounter Care Teams Knurling Machine Operator Relationship Specialty Start Date End Date Elsewhere, Pcp PCP - General Internal Medicine 10/09/24 documented as of this encounter
--- OUTSIDE RECORDS SUMMARY | 2024-11-11 11:17 | XMS_ITS | Patient Health Record ---
Author Organization [facility] Address [address] [place] [address] Care Team Providers Care Oracle Analyst Name Role Phone Osorio Galvan Primary Care Provider PEGGY Sainz Unavailable [phone] Reason For Referral No Information Social History Tobacco Use: Social History Observation Description Date Details (start date - stop date) Former Smoker NA - NA Social History Tobacco Use: Social Info Question Answer Notes Tobacco use/smoking Are you a former smoker Problems Problem Type SNOMED Code ICD Code Onset Dates Problem Status W/U Status Risk Notes Problem Hoarseness (53217345) Hoarseness (R49.0) Active confirmed Problem Dysphagia (52832250) Dysphagia (R13.10) Active confirmed Plan Of Treatment No Information Insurance Providers Payer Name Payer Address Payer Phone Subscriber Number Group Number Insured Name Patient Relationship to Insured Coverage Start Date Coverage End Date MEDICARE [address] [place] [address] [id number] Hernandez Samayoa Self - patient is the insured [facility] Supplementa l [address] [place], [place] [id number] Hernandez Samayoa Self - patient is the insured Medical (General) History Medical History History ICD Code sleep apnea Surgical History Surgery Date(Month/Year) throat/ epiglotis back
--- OUTSIDE RECORDS SUMMARY | 2024-11-11 11:17 | XMS_ITS | Encounter Summary ---
Author Organization [facility] Address [address] [place] [address] Care Team Providers Care Mash Processing Operator Name Role Phone Elsewhere, Pcp Primary Care Provider Unavailabl e Reason for Referral * Outpatient (Routine) - Authorized Specialty Diagnoses / Procedures Referred By Keiko latif Referred To Contact Diagnoses Malignant Neoplasm Of Bladder (HCC) Swelling Leg Left Procedures US Lower Extremity Veins Left Alisa Menjivar M.D. 200 [place] [address] Phone: tel: fax: [facility] Referral ID Status Reason Start Date Expiration Date V isits Requested Visits Authorized [id number] Authorized 11/07/2024 02/07/2026 1 1 Encounter Details Date Type Department Care Team (Late st Contact Info) Description 11/07/2024 Orders Only Department of Oncology in [place], [place] [address] [place] [phone] Alisa Menjivar M.D. 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 [address] [place] [phone] Discharge Disposition: Home or Self Care 11/12/2024 2:15 PM CDT Office Visit Department of Cardiovascular Medicine in [address] [phone] Elisa Alva M.D. [address] [place] [phone] 11/19/2024 1:00 PM CDT Clinical Communication Virtual Review in [place], [place] 200 [place] [phone] 11/20/2024 8:00 AM CDT Clinical Support Department of Oncology in [address] [phone] Polo Dwyer M.D. [address] [place] [phone] China Parikh M.S.W., L.I.C.S.W. [address] [place] [phone] 11/20/2024 10:50 AM CDT Lab Department of Laboratory Medicine and Pathology, [facility], in [address] [phone] Alisa Menjivar M.D. [address] [place] [phone] 11/20/2024 1:30 PM CDT Office Visit Department of Oncology in [place], [place] [address] [place] [address] [place] [phone] Alisa Menjivar M.D. [address] [place] [phone] 11/20/2024 3:00 PM CDT Infusion Department of Oncology in [place], [place] [address] [place] [phone] Alisa Menjivar M.D. [address] [place] [phone] 11/27/2024 7:30 AM CDT Lab Department of Laboratory Medicine and Pathology, [facility] in [place], [place] [address] [place] [phone] Alisa Menjivar M.D. [address] [place] [phone] 11/27/2024 9:30 AM CDT Infusion Department of Oncology in [place], [place] [address] [place] [address] Alisa Menjivar M.D. [address] [place] [phone] Scheduled Orders Name Type Priority Associated Diagnoses Orde r Schedule US Lower Extremity Veins Left Imaging RAD - Routine (most inpatients and all outpatients) Malignant Neoplasm Of Bladder (HCC) Swelling Leg Left Expected: 11/12/2024, Expires: 02/07/2026 documented as of this encounter Visit Diagnoses Diagnosis Malignant Neoplasm Of Bladder (HCC)- Primary Swelling Leg Left documented in this encounter Additional Health Concerns Infection Onset Date Last Indicated Resolved Time Protective Environment 11/01/2024 11/01/2024 documented as of this encounter Care Teams Mash Processing Operator Relationship Specialty Start Date End Date Elsewhere, Pcp PCP - General Internal Medicine 10/09/24 documented as of this encounter
[2024-11-11 11:25] VITALS: BP 117/76; PULSE 72; RESP 18; TEMP 36.1; O2SAT 94; BMI 26.2
[2024-11-11] MEDS: lidocaine HCL 2 % JELLY (TOP) STERILE 6 ML UR (12:40)
== END 2024-11-11 13:17 | disposition home or self-care (01) ==
LOC: ED 11:54
PROVIDERS: Emergency Provider Family Medicine; PCP Family Medicine
DX: R31.0 Gross hematuria (principal); T83.098A Other mechanical complication of other urinary catheter, initial encounter; N32.0 Bladder-neck obstruction
CPT/HCPCS: 99284

== ENCOUNTER 2025-01-17 11:46 | Emergency (ER) | payer MEDICARE, SELFPAY ==
--- OUTSIDE RECORDS SUMMARY | 2024-12-06 15:45 | XMS_ITS | Encounter Summary ---
Author Organization [facility] Address [address] [place] [address] Care Team Providers Care Jigger Operator Name Role Phone Elsewhere, Pcp Primary Care Provider Unavailabl e Reason for Visit * Reason Onset Date Comments Pre-visit Intake 12/06/2024 * Appointment Request (Routine) - Authorized Specialty Diagnoses / Procedures Referred By Keiko latif Referred To Contact Oncology Referral ID Status Reason Start Date Expiration Date V isits Requested Visits Authorized [id number] Authorized 11/23/2024 02/23/2026 1 1 Encounter Details Date Type Department Care Team (Latest Contact Info) Description 12/06/2024 3:45 PM CDT Clinical Communication Virtual Review in [place], [place] 200 [place] [address] Pre-visit Intake Social History Tobacco Use Types Packs/Day Years Used Date Smoking Tobacco: Former Smokeless Tobacco: Never Alcohol Use Standard Drinks/Week Comments Yes 3 (1 standard drink = 0.6 oz pur e alcohol) [facility] Utilities Answer Date Recorded In the [...] your living situation today? I have a [facility] place to live 10/09/2024 Education Answer Date Recorded What is the highest level of school you have completed or the highest degree you have received? 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 [address] [place] [phone] 01/21/2025 1:30 PM CDT Office Visit Division of Hematology in [place], [place] [address] [place] [phone] Polo Dwyer M.D. [address] [place] [phone] 01/21/2025 2:30 PM CDT Infusion Department of Oncology in [place], [place] [address] [place] [phone] Opal Marcano M.D. [address] [place] [phone] 01/28/2025 9:00 AM SENIOR MOBILE DEVELOPER Lab Department of Laboratory Medicine and Pathology, [facility] in [place], [place] [address] [place] [phone] Opal Marcano M.D. [address] [place] [phone] 01/28/2025 11:00 AM SENIOR MOBILE DEVELOPER Infusion Department of Oncology in [place], [place] [address] [place] [phone] Opal Marcano M.D. [address] [place] [phone] 04/03/2025 3:00 PM SENIOR MOBILE DEVELOPER Office Visit Department of Urology in [place], [place] [address] [place] [phone] Pema Rojas M.D. [address] [place] [phone] documented as of this encounter Visit Diagnoses Not on filedocumented in this encounter Additional Health Concerns Infection Onset Date Last Indicated Resolved Time Protective Environment 11/01/2024 11/01/2024 documented as of this encounter Care Teams Jigger Operator Relationship Specialty Start Date End Date Elsewhere, Pcp PCP - General Internal Medicine 10/09/24 documented as of this encounter
--- OUTSIDE RECORDS SUMMARY | 2024-12-10 15:00 | XMS_ITS | Encounter Summary ---
Author Organization [facility] Address [address] [place] [address] Care Team Providers Care Rag Cutting Machine Operator Name Role Phone Elsewhere, Pcp Primary Care Provider Unavailabl e Reason for Referral * MRI/CAT/PET Scan (Routine) - Closed Specialty Diagnoses / Procedures Referred By Contac t Referred To Contact Radiology Diagnoses Malignant Neoplasm Of Bladder (HCC) Procedures CT Chest with IV Contrast Polo Dwyer M.D. 200 [place] [address] Phone: tel: fax: [facility] Referral ID Status Reason Start Date Expiration Date Visits Re quested Visits Authorized [id number] Closed 12/10/2024 03/12/2026 1 1 * MRI/CAT/PET Scan (Routine) - Closed Specialty Diagnoses / Procedures Referred By Contac t Referred To Contact Radiology Diagnoses Malignant Neoplasm Of Bladder (HCC) Procedures CT Urogram without and with IV Contrast Polo Dwyer M.D. 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 [address] [place] [phone] Phone: tel: fax: Department of Oncology in [place], [place] [address] [place] [phone] Phone: tel: Referral ID Status Reason Start Date Expiration Date V isits Requested Visits Authorized [id number] Authorized 10/17/2024 10/17/2026 99 99 Encounter Details Date Type Department Care Team (Late st Contact Info) Description 12/10/2024 3:00 PM CDT Office Visit Division of Hematology in [place], [place] [address] [place] [phone] Pool Dwyer M.D. [address] [place] [phone] Malignant Neoplasm Of Bladder (HCC) (Primary Dx) Social History Tobacco Use Types Packs/Day Years Used Date Smoking Tobacco: Former Smokeless Tobacco: Never Alcohol Use Standard Drinks/Week Comments Yes 3 (1 standard drink = 0.6 oz pur e alcohol) [facility] Utilities Answer Date Recorded In the past 12 months has [facility] [employer], [employer], or [employer] threatened to shut off services in your [...] your living situation today? I have a [facility] place to live 10/09/2024 Education Answer Date Recorded What is the highest level of school you have completed or the highest degree you have received? 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 Gender Identity Male 09/04/2024 9:32 AM CDT Sexual Orientation Straight 09/04/2024 9: 32 AM CDT documented as of this encounter Last Filed Vital Signs Vital Sign Reading Time Taken Comments Blood Pressure 133/82 12/10/2024 2:47 PM CDT Pulse 73 12/10/2024 2:47 PM CDT Temperature 36.3 C (97.3 F) 12/10/2024 2:47 PM CDT Respiratory Rate 17 12/10/2024 2:47 PM CDT Oxygen Saturation 96% 12/10/2024 2:47 PM CDT Inhaled Oxygen Concentration - - Weight 76.2 kg (167 lb 15.9 oz) 12/10/2024 2:47 PM CDT Height 166.8 cm (5' 5.67) 12/10/2024 2:47 PM CD T Body Mass Index 27.39 12/10/2024 2:47 PM CDT documented in this encounter Progress Notes * Polo Dwyer M.D. - 12/10/2024 3:00 PM CDT Oncology Clinic Follow Up Note CHIEF COMPLAINT/PURPOSE OF VISIT Primary Staff Oncologist: Schuyler Menjivar M.D. Primary Fellow Oncologist: Polo Dwyer M.D. Supervised by: Isra Botello M.D. Purpose of visit: Treatment The patient verbally consented to an audio recording of their visit to assist with the completion of documentation. SUBJECTIVE HISTORY OF PRESENT ILLNESS Hernandez Samayoa is a 79 y.o. male with a relevant history of metastatic papillary bladder cancer on dose-reduced enfortumab vedotin and pembrolizumab who presents for follow-up appointment prior to receiving C3D1. History of Present Illness This afternoon, Mr. Samayoa is accompanied by his son who is visiting from [place]. Following cycletwo of enfortumab vedotin and pembrolizumab, Mr. Samayoa has experienced frequent stomach rumbling and gas. He has occasional stomach pain that self resolves. He endorses an overall poor appetite, buteats well when food is appealing. Mr. Samayoa endorses constipation with bowel movements occurring every 3-4 days. He uses Miralax and Senna for bowel regulation, with Miralax as initial choice. He inconsistently uses of Metamucil. His urinary catheter remains in place and has been functioning well lately. He denies fevers, chills, night sweats, chest pain, shortness of breath, nausea, vomiting, diarrhea, as well as new rashes or pain. Oncology History: Oncology History Overview Note July 2024 w/u [...] Enfortumab vedotin-ejfv / Pembrolizumab Start Date: 11/01/2024 SYSTEMS REVIEW Negative except as noted above in the HPI. PAST MEDICAL/SURGICAL HISTORY/SOCIAL HISTORY/FAMILY HISTORY Reviewed and available in the EMR. PHYSICAL EXAMINATION There were no vitals filed for this visit. Vitals and nursing note reviewed. Constitutional General: He is not in acute distress. Appearance: Normal appearance. He is not ill-appearing, toxic-appearing or diaphoretic. HENT Head: Normocephalic and atraumatic. Nose: Nose normal. Mouth/Throat: Mouth: Mucous membranes are moist. Eyes General: No scleral icterus. Right eye: No discharge. Left eye: No discharge. Extraocular Movements: Extraocular movements intact. Conjunctiva/sclera: Conjunctivae normal. Cardiovascular Rate and Rhythm: Normal rate and regular rhythm. Pulses: Normal pulses. Heart sounds: Normal heart sounds. Pulmonary Effort: Pulmonary effort is normal. No respiratory distress. Breath sounds: No wheezing, rhonchi or rales. Abdominal General: Abdomen is flat. There is no distension. Palpations: Abdomen is soft. Tenderness: There is no abdominal tenderness. Musculoskeletal General: No swelling. Normal range of motion. Cervical back: Normal range of motion. Skin General: Skin is dry. Coloration: Skin is not jaundiced. Findings: No bruising. Neurological General: No focal deficit present. Mental Status: He is alert and oriented to person, place, and time. Psychiatric Mood and Affect: Mood normal. Behavior: Behavior normal. Thought Content: Thought content normal. Judgment: Judgment normal. LABS Labs and imaging reviewed with notable abnormal. ASSESSMENT / PLAN Hernandez Samayoa is a 79 y.o. male with a relevant history of metastatic papillary bladder cancer on dose-reduced enfortumab vedotin and pembrolizumab who presents for follow-up appointment prior to receiving C3D1. Assessment & Plan # Malignant Neoplasm Of Bladder (HCC) # Ureteral Obstruction 2/2 Bladder Neoplasm s/p indwelling cathter placement # Blood loss anemia 2/2 neoplasm # Constipation, GI upset Mr. Samayoa is a 78 yo male [...] our clinic for consideration of systemic therapy. Mr. Samayoa was subsequently started on enfortumab vedotin and pembrolizumab with a dose reduction given his multiple comorbidities/clinical frailty. He has completed cycle two of treatment and has planned C3D1 tomorrow. Labs reviewed and stable from prior, notably hgb and creatinine. Electrolytes, LFTs, and TSH are within normal limits. He endorses constipation, increased gas, and GI upset since starting treatment, but finds these manageable. PLAN: - Proceed with C3D1 Enfortumab vedotin and pembrolizumab 12/21/24 at 8:30 AM. - Staging scans prior to follow-up appointment on 12/31/24. - Will discuss potential transition to local oncology care in [place] if treatment is effective. - Discussed senna as first option for softening stools and then adding MiraLAX as needed. - Ensure adequate protein intake and hydration (at least 64 fl oz per day). - Pending response of bladder-related obstruction to EV pembro, the patient may be able to have hisfoley catheter removed. Will touch base with our Urology colleagues once repeat scans return. Total time of encounter: I personally spent 45 minutes in direct and indirect patient care related to today's visit. Polo Dwyer M.D. Hematology/Oncology Fellow, PGY-4 Pgr: [phone] documented in this encounter Plan of Treatment Upcoming Encounters Date Type Department Care Team (Late st Contact Info) Description 01/18/2025 2:45 PM CDT Clinical Communication Virtual Review in [place], [place] [address] [place] [address] 01/21/2025 11:30 AM CDT Lab Department of Laboratory Medicine and Pathology, [facility], in [place], [place] [address] [place] [phone] Opal Marcano M.D. [address] [place] [phone] 01/21/2025 1:30 PM CDT Office Visit Division of Hematology in [place], [place] [address] [place] [phone] Polo Dwyer M.D. [address] [place] [phone] 01/21/2025 2:30 PM CDT Infusion Department of Oncology in [place], [place] [address] [place] [phone] Opal Marcano M.D. [address] [place] [phone] 01/28/2025 9:00 AM UNDER CUTTING MACHINE OPERATOR Lab Department of Laboratory Medicine and Pathology, [facility] in [place], [place] [address] [place] [phone] Opal Marcano M.D. [address] [place] [phone] 01/28/2025 11:00 AM UNDER CUTTING MACHINE OPERATOR Infusion Department of Oncology in [place], [place] [address] [place] [phone] Opal Marcano M.D. [address] [place] [phone] 04/03/2025 3:00 PM UNDER CUTTING MACHINE OPERATOR Office Visit Department of Urology in [place], [place] [address] [place] [phone] Pema Rojas M.D. [address] [place] [phone] documented as of this encounter Results * CT Chest with IV Contrast (12/31/2024 1:12 PM CDT) Anatomical Region Laterality Modality Chest, Thoracic RST LOS, Tho racic ARZ LOS, Thoracic ARZ LOS, Thoracic FLA LOS N/A Computed Tomography, Compute d Tomography 12/31/2024 1:02 PM CDT Impressions 12/31/2024 2:[address]able chest CT. Narrative 12/31/2024 2:17 PM CDT EXAM: CT CHEST WITH IV CONTRAST COMPARISON: Chest CT 10/01/2024 FINDINGS: Stable 2 mm subpleural nodule in the right middle lobe along the lateral right major fissure (series 3/image 316). No new or enlarging pulmonary nodules or masses. Stable linear scarring in the anterior right upper lobe. Slight emphysematous changes in the upper lungs. No lymphadenopathy. Aortic and moderate to severe coronary artery calcification. Prominent aortic valvular calcification. No pericardial or pleural effusions. Mild degenerative changes in the spine. This examination was performed in conjunction with a CT of the abdomen, which will be reported separately. 3D maximum intensity projection (MIP) images were created on a dependent workstation as ordered by the treating provider and reviewed by the radiologist to increase sensitivity for detection of pulmonary nodules. Procedure Note Alden Cartwright M.D. - 12/31/2024 EXAM: CT CHEST WITH IV CONTRAST COMPARISON: Chest CT 10/01/2024 FINDINGS: Stable 2 mm subpleural nodule in the right middle lobe along the lateralright major fissure (series 3/image 316). No new or enlarging pulmonarynodules or masses. Stable linear scarring in the anterior right upperlobe. Slight emphysematous changes in the upper lungs. No lymphadenopathy. Aortic and moderate to severe coronary artery calcification. Prominentaortic valvular calcification. No pericardial or pleural effusions. Milddegenerative changes in the spine. This examination was performed in conjunction with a CT of the abdomen,which will be reported separately. 3D maximum intensity projection (MIP) images were created on a dependentworkstation as ordered by the treating provider and reviewed by theradiologist to increase sensitivity for detection of pulmonary nodules. IMPRESSION: Stable chest CT. Polo wDyer M.D. [facility] [place] PROCEDURES Final Result * CT Urogram without and with IV Contrast (12/31/2024 1:12 PM CDT) Anatomical Region Laterality Modality Abdomen, Pelvis, Abdominal R ST LOS, Abdominal ARZ LOS, Abdominal FLA LOS N/A Computed Tomograp hy, Computed Tomography 12/31/2024 1:06 PM CDT Impressions 12/31/2024 1:23 PM CDT Decreased size of bladder mass in the right inferior lateral bladder wall. Resolution of previously seen right hydronephrosis. Significantly decreased size of previously seen retroperitoneal and pelvic lymphadenopathy. No new CT evidence of metastatic disease in the abdomen or pelvis. Narrative 12/31/2024 1:23 PM CDT EXAM: CT UROGRAM WITHOUT AND WITH IV CONTRAST COMPARISON: CT urogram 09/03/2024 and priors FINDINGS: : No urinary calculi. Prompt, symmetric nephrograms. No solid renal mass. Diffuse enhancement and mild thickening of the collecting systems and ureters is presumed reactive. Diffuse thickening of the bladder wall is slightly more asymmetric thickening and enhancement on the right. Thickening measures up to 2 cm, previously 3.[address] Other findings: Cholelithiasis. Liver, pancreas, spleen and right adrenal are unremarkable. Low-density nodularity of the left adrenal gland compatible with tiny adenomas. Duodenal diverticulum. Vascular calcifications. Significant decrease in size in previously seen retroperitoneal and pelvic lymphadenopathy. No new abdominal or pelvic lymphadenopathy. Colonic diverticulosis. Degenerative changes of the spine. Posterior lumbar fusion. This examination was performed in conjunction with a CT of the chest, which will be reported separately. Procedure Note Valentino Ulloa M.D. - 12/31/2024 EXAM: CT UROGRAM WITHOUT AND WITH IV CONTRAST COMPARISON: CT urogram 09/03/2024 and priors FINDINGS: : No urinary calculi. Prompt, symmetric nephrograms. No solid renalmass. Diffuse enhancement and mild thickening of the collecting systemsand ureters is presumed reactive. Diffuse thickening of the bladder wang slightly more asymmetric thickening and enhancement on the right.Thickening measures up to 2 cm, previously 3.[address] Other findings: Cholelithiasis. Liver, pancreas, spleen and right adrenalare unremarkable. Low-density nodularity of the left adrenal glandcompatible with tiny adenomas. Duodenal diverticulum. Vascularcalcifications. Significant decrease in size in previously seenretroperitoneal and pelvic lymphadenopathy. No new abdominal or pelviclymphadenopathy. Colonic diverticulosis. Degenerative changes of thespine. Posterior lumbar fusion. This examination was performed in conjunction with a CT of the chest,which will be reported separately. IMPRESSION: Decreased size of bladder mass in the right inferior lateral bladder wall.Resolution of previously seen right hydronephrosis. Significantlydecreased size of previously seen retroperitoneal and pelviclymphadenopathy. No new CT evidence of metastatic disease in the abdomenor pelvis. Polo Dwyer M.D. [facility] PROCEDURES Final Result documented in this encounter Visit Diagnoses Diagnosis Malignant Neoplasm Of Bladder (HCC)- Primary Malignant Neoplasm Of Bladder (HCC) documented in this encounter Additional Health Concerns Infection Onset Date Last Indicated Resolved Time Protective Environment 11/01/2024 11/01/2024 documented as of this encounter Care Teams Rag Cutting Machine Operator Relationship Specialty Start Date End Date Elsewhere, Pcp PCP - General Internal Medicine 10/09/24 documented as of this encounter
--- OUTSIDE RECORDS SUMMARY | 2024-12-11 08:30 | XMS_ITS | Encounter Summary ---
Author Organization [facility] Address [address] [place] [address] Care Team Providers Care Stranding Supervisor Name Role Phone Elsewhere, Pcp Primary Care Provider Unavailabl e Reason for Visit * Episode Based Medications (Routine) - Authorized Specialty Diagnoses / Procedures Referred By Keiko t Referred To Contact Diagnoses Malignant Neoplasm Of Bladder (HCC) Medication Therapy Manager Operating Not Anticoagulant Longterm Current Drug Therapy, Chemotherapy Polo Dwyer M.D. [address] [place] [phone] Phone: tel: fax: Department of Oncology in [place], [place] [address] [place] [phone] Phone: tel: Referral ID Status Reason Start Date Expiration Date V isits Requested Visits Authorized [id number] Authorized 10/17/2024 10/17/2026 99 99 Encounter Details Date Type Department Care Team (Late st Contact Info) Description 12/11/2024 8:30 AM CDT Infusion Department of Oncology in [place], [place] [address] [place] [phone] Opal Marcano M.D. [address] [place] [phone] Malignant Neoplasm Of Bladder (HCC) (Primary Dx); Medication Therapy Manager Operating Not Anticoagulant; Longterm Current Drug Therapy, Chemotherapy Social History Tobacco Use Types Packs/Day Years Used Date Smoking Tobacco: Former Smokeless Tobacco: Never Alcohol Use Standard Drinks/Week Comments Yes 3 (1 standard drink = 0.6 oz pur e alcohol) [facility] Utilities Answer Date Recorded In the past [...] your living situation today? I have a [facility] place to live 10/09/2024 Education Answer Date Recorded What is the highest level of school you have completed or the highest degree you have received? 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, BERTA) 05/11/2020 Sex and Gender Information Value Date Recorded Sex Assigned at Male 09/04/2024 9:32 AM CDT Legal Sex Male 5:45 PM TRAFFIC CHECKER Gender Identity Male 09/04/2024 9:32 AM CDT Sexual Orientation Straight 09/04/2024 9: 32 AM CDT documented as of this encounter Last Filed Vital Signs Vital Sign Reading Time Taken Comments Blood Pressure 115/65 12/11/2024 8:59 AM CDT Pulse 50 12/11/2024 8:59 AM CDT Temperature 36.3 C (97.3 F) 12/11/2024 8:59 AM CDT Respiratory Rate 16 12/11/2024 8:59 AM CDT Oxygen Saturation - - Inhaled Oxygen Concentration - - Weight - - Height - - Body Mass Index - - documented in this encounter Plan of Treatment Upcoming Encounters Date Type Department Care Team (Late st Contact Info) Description 01/18/2025 2:45 PM CDT Clinical Communication Virtual Review in [place], [place] 200 [place] [phone] 01/21/2025 11:30 AM CDT Lab Department of Laboratory Medicine and Pathology, [place], [place] [address] [place] [phone] Opal Marcano M.D. [address] [place] [phone] 01/21/2025 1:30 PM CDT Office Visit Division of Hematology in [address] [phone] Polo Dwyer M.D. [address] [place] [phone] 01/21/2025 2:30 PM CDT Infusion Department of Oncology in [place], [place] [address] [place] [phone] Opal Marcano M.D. [address] [place] [phone] 01/28/2025 9:00 AM TRAFFIC CHECKER Lab Department of Laboratory Medicine and Pathology, [facility] in [place], [place] [address] [place] [phone] Opal Marcano M.D. [address] [place] [phone] 01/28/2025 11:00 AM TRAFFIC CHECKER Infusion Department of Oncology in [place], [place] [address] [place] [phone] Opal Marcano M.D. [address] [place] [phone] 04/03/2025 3:00 PM TRAFFIC CHECKER Office Visit Department of Urology in [place], [place] [address] [place] [phone] Pema Rojas M.D. [address] [place] [phone] documented as of this encounter Visit Diagnoses Diagnosis Malignant Neoplasm Of Bladder (HCC)- Primary Medication Therapy Manager Operating Not Anticoagulant Longterm Current Drug Therapy, Chemotherapy documented in this [...] mL/hr, Administer over 30 Minutes, Once, On Tue12/11/24 at 1000, For 1 dose, Enfortumab vedotin-ejfv dose is capped at 125 mg. If patient is >/= 100 kg, dose reduction should be based on this max dose. Do NOT shake. Handle with care. PROTECT FROM LIGHT.Indications:Malignant Neoplasm Of Bladder (HCC),Medication Therapy Longterm Not Anticoagulant,Longterm Current Drug Therapy, Chemotherapy New Bag 12/11/2024 9:56 AM CDT 70 mg 234 mL/hr ondansetron (PF) injection 8 mg (Zofran) 8 mg, intravenous, Once, On Tue12/11/24 at 0930, For 1 doseIndications:Malignant Neoplasm Of Bladder (HCC),Medication Therapy Manager Operating Not Anticoagulant,Manager Operating Current Drug Therapy, Chemotherapy Given 12/11/2024 9:19 AM CDT 8 mg pembrolizumab 100 mg in NaCl 0.9% 62 mL IVPB (Keytruda) 100 mg, intravenous, at 124 mL/hr, Administer over 30 Minutes, Once, On Tue12/11/24 at 1030, For 1 dose, Do not co-administer other drugs through the same infusion line. Do not shake. Use low protein binding filter (pore size of 0.2-5 micron).Indications:Malignant Neoplasm Of Bladder (HCC),Medication Therapy Longterm Not Anticoagulant,Manager Operating Current Drug Therapy, Chemotherapy New Bag 12/11/2024 10:39 AM CDT 100 mg 124 mL/hr sodium chloride 0.9 % injection 10 mL 10 mL, intravenous, As needed, line care, Starting on Tue12/11/24 at 0903, Prior to blood sampling, post blood transfusion, or post blood sampling.Indications:Malignan t Neoplasm Of Bladder (HCC) Given 12/11/2024 11:00 AM CDT 20 mL Given 12/11/2024 10:23 AM CDT 20 mL documented in this encounter Additional Health Concerns Infection Onset Date Last Indicated Resolved Time Protective Environment 11/01/2024 11/01/2024 documented as of this encounter Care Teams Stranding Supervisor Relationship Specialty Start Date End Date Elsewhere, Pcp PCP - General Internal Medicine 10/09/24 documented as of this encounter
--- OUTSIDE RECORDS SUMMARY | 2024-12-17 10:20 | XMS_ITS | Encounter Summary ---
Author Organization [facility] Address [address] [place] [address] Care Team Providers Care Horticulture/Floriculture Teacher Name Role Phone Elsewhere, Pcp Primary Care Provider Unavailabl e Reason for Visit * Outpatient (Routine) - Closed Specialty Diagnoses / Procedures Referred By Keiko latif Referred To Contact Oncology Yaritza Nance APRN, C.N.P., M.S.N. [address] [place] [phone] Phone: tel: fax: [facility] Referral ID Status Reason Start Date Expiration Date Visits Re quested Visits Authorized [id number] Closed 12/17/2024 06/18/2026 1 1 Encounter Details Date Type Department Care Team (Late st Contact Info) Description 12/17/2024 10:20 AM CDT Office Visit Department of Oncology in [place], [place] [address] [place] [phone] Yraitza Nance APRN C.N.P., M.S.N. [address] [place] [phone] Swelling Leg Left (Primary Dx) Social History Tobacco Use Types Packs/Day Years Used Date Smoking Tobacco: Former Smokeless Tobacco: Never Alcohol Use Standard Drinks/Week Comments Yes 3 (1 standard drink = 0.6 oz pur e alcohol) [facility] Utilities Answer Date Recorded In the past 12 months has th e electric, gas, oil, or water [employer] threatened to shut off services in your [...] living situation today? I have a [facility] place to live 10/09/2024 Education Answer Date Recorded What is the highest level of school you have completed or the highest degree you have received? 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, DRAPERY MAKER, BERTA) 05/11/2020 Sex and Gender Information Value Date Recorded Sex Assigned at Male 09/04/2024 9:32 AM CDT Legal Sex Male 5:45 PM SYSTEMS ANALYSIS MANAGER Gender Identity Male 09/04/2024 9:32 AM CDT Sexual Orientation Straight 09/04/2024 9: 32 AM CDT documented as of this encounter Progress Notes * Yaritza Nance APRN, C.N.P., M.S.N. - 12/17/2024 10:20 AM CDT SUBJECTIVE CHIEF COMPLAINT/PURPOSE OF VISIT Seen in [facility] Acute Clinic for: Left lower extremity swelling PRIMARY CARE TEAM: Oncology PRIMARY ONCOLOGIST: Alisa Menjivar M.D. Quevedo, J. Fernando, M.D. ONCOLOGIC DIAGNOSIS: Metastatic papillary bladder cancer ONCOLOGIC TREATMENT: Enfortumab vedotin-ejfv / Pembrolizumab Start Date: 11/01/2024 REFERRAL SOURCE Primary Oncology Team The patient verbally consented to an audio recording of their visit to assist with the completion of documentation. HISTORY OF PRESENT ILLNESS Mr. Samayoa is a very pleasant 79 y.o. male who presents today with complaints of left lower extremityedema. Patient states that this started at the end of October. He had a lower extremity ultrasound on 11/12/2024 which was negative for a DVT. The team nurse did call him on 11/27/2024 to follow-up. At that time he shared that his lower extremity edema had improved and he was instructed to call again if his symptoms worsened. Today, he presented to chemotherapy and shared that his left lower extremity had been continuing toswell over the last three weeks. Today, he noted some pain with palpation and some soreness with walking. He has no other complaints. He has no open wounds or recent injury. He denies any fever, chills, dyspnea or exercise intolerance. History of Present Illness REVIEW OF SYSTEMS Pertinent items are noted in HPI; otherwise a 10-point review of systems was completed and negative. OBJECTIVE VITAL SIGNS PHYSICAL EXAMINATION General: Alert male in no distress, nontoxic. Cardiovascular: S1/S2 without murmur, gallops, clicks or rubs; no cyanosis, regular rate and rhythm. No cyanosis, clubbing, or edema noted in extremities. Respiratory: CTA bilaterally; no wheezes, rhonchi or rales. No cough, no tachypnea, respirations regular and unlabored. Neuro: Neurovascular bundle intact. No focal sensory or motor deficits are appreciated. Mental: Oriented to person, place, time and situation. Responds appropriately to questions. DIAGNOSTICS I reviewed the imaging studies and agree with the interpretation as recorded. I reviewed the pertinent laboratory and diagnostic data. ASSESSMENT / PLAN #1 Left lower extremity edema I do wonder about clot versus disease burden. Since he has had a change in symptoms and worsening edema, I do think it would be reasonable to repeat his lower extremity ultrasound to r/o DVT. If still negative it may certainly be related to enlarged lymph nodes in the left distal external iliac chain. I did suggest compression and elevation to help with the swelling in the interim. We will follow-upwith the ultrasound results and with his team regarding next steps if the ultrasound is negative. Assessment & Plan ORDERS PLACED THIS ENCOUNTER: No orders of the defined types were placed in this encounter. FOLLOW-UP: Mr. Samayoa will follow-up with their oncology care team on 12/31/2024 and has been instructed to contact their oncology care team anytime with further questions or concerns. Acuity level: Grade 3 documented in this encounter Plan of Treatment Upcoming Encounters Date Type Department Care Team (Late st Contact Info) Description 01/18/2025 2:45 PM CDT Clinical Communication Virtual Review in [address] [phone] 01/21/2025 11:30 AM CDT Lab Department of Laboratory Medicine and Pathology, [facility], in [address] [phone] Opal Marcano M.D. [address] [place] [phone] 01/21/2025 1:30 PM CDT Office Visit Division of Hematology in [address] [phone] Polo Dwyer M.D. [address] [place] [phone] 01/21/2025 2:30 PM CDT Infusion Department of Oncology in [address] [phone] Opal Marcano M.D. [address] [place] [phone] 01/28/2025 9:00 AM SYSTEMS ANALYSIS MANAGER Lab Department of Laboratory Medicine and Pathology, [facility], in [place], [place] [address] [place] [phone] Opal Marcano M.D. [address] [place] [phone] 01/28/2025 11:00 AM SYSTEMS ANALYSIS MANAGER Infusion Department of Oncology in [place], [place] [address] [place] [address] Opal Marcano M.D. [address] [place] [phone] 04/03/2025 3:00 PM SYSTEMS ANALYSIS MANAGER Office Visit Department of Urology in [place], [place] [address] [place] [phone] Pema Rojas M.D. [address] [place] [phone] documented as of this encounter Visit Diagnoses Diagnosis Swelling Leg Left- Primary documented in this encounter Additional Health Concerns Infection Onset Date Last Indicated Resolved Time Protective Environment 11/01/2024 11/01/2024 documented as of this encounter Care Teams Horticulture/Floriculture Teacher Relationship Specialty Start Date End Date Elsewhere, Pcp PCP - General Internal Medicine 10/09/24 documented as of this encounter
--- OUTSIDE RECORDS SUMMARY | 2024-12-17 15:00 | XMS_ITS | Encounter Summary ---
Author Organization [facility] Address [address] [place] [address] Care Team Providers Care Reconnaissance Man Name Role Phone Elsewhere, Pcp Primary Care Provider Unavailabl e Reason for Referral * Outpatient (Routine) - Closed Specialty Diagnoses / Procedures Referred By Contac t Referred To Contact Diagnoses Swelling Leg Left Procedures US Lower Extremity Veins Left Yaritza Nance APRN, C.NVivek, M.S.N. 200 [place] [address] Phone: tel: fax: [facility] Referral ID Status Reason Start Date Expiration Date Visits Re quested Visits Authorized [id number] Closed 12/17/2024 03/19/2026 1 1 * Outpatient (Routine) - Closed Specialty Diagnoses / Procedures Referred By Contac t Referred To Contact Oncology Yaritza Nance APRN, C.N.P., M.S.N. 200 [place] [address] Phone: tel: fax: [facility] Referral ID Status Reason Start Date Expiration Date Visits Re quested Visits Authorized [id number] Closed 12/17/2024 06/18/2026 1 1 Reason for Visit * Episode Based Medications (Routine) - Authorized Specialty Diagnoses / Procedures Referred By Keiko t Referred To Contact Diagnoses Malignant Neoplasm Of Bladder (HCC) Medication Therapy Jail Not Anticoagulant Jail Current Drug Therapy, Chemotherapy Polo Dwyer M.D. [address] [place] [phone] Phone: tel: fax: Department of Oncology in [place], [place] [address] [place] [phone] Phone: tel: Referral ID Status Reason Start Date Expiration Date V isits Requested Visits Authorized [id number] Authorized 10/17/2024 10/17/2026 99 99 Encounter Details Date Type Department Care Team (Late st Contact Info) Description 12/17/2024 3:00 PM CDT Infusion Department of Oncology in [place], [place] [address] [place] [phone] Opal Marcano M.D. [address] [place] [phone] Malignant Neoplasm Of Bladder (HCC) (Primary Dx); Medication Therapy Jail Not Anticoagulant; Truss Driver Helper Current Drug Therapy, Chemotherapy; Swelling Leg Left Social History Tobacco Use Types Packs/Day Years Used Date Smoking Tobacco: Former Smokeless Tobacco: Never Alcohol Use Standard Drinks/Week Comments Yes 3 (1 standard drink = 0.6 oz pur e alcohol) [facility] Utilities Answer Date Recorded In the past 12 months has [facility] [employer], oil, or water [email or web address] threatened to shut off services in your [...] your living situation today? I have a [facility] place to live 10/09/2024 Education Answer Date Recorded What is the highest level of school you have completed or the highest degree you have received? 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, [employer], BERTA) 05/11/2020 Sex and Gender Information Value Date Recorded Sex Assigned at Male 09/04/2024 9:32 AM CDT Legal Sex Male 5:45 PM RN PRIVATE DUTY Gender Identity Male 09/04/2024 9:32 AM CDT Sexual Orientation Straight 09/04/2024 9: 32 AM CDT documented as of this encounter Plan of Treatment Upcoming Encounters Date Type Department Care Team (Late st Contact Info) Description 01/18/2025 2:45 PM CDT Clinical Communication Virtual Review in [place], [place] [address] [place] [phone] 01/21/2025 11:30 AM CDT Lab Department of Laboratory Medicine and Pathology, [facility], in [place], [place] [address] [place] [phone] Opal Marcano M.D. [address] [place] [phone] 01/21/2025 1:30 PM CDT Office Visit Division of Hematology in [place], [place] [address] [place] [phone] Polo Dwyer M.D. [address] [place] [phone] 01/21/2025 2:30 PM CDT Infusion Department of Oncology in [place], [place] [address] [place] [phone] Opal Marcano M.D. [address] [place] [phone] 01/28/2025 9:00 AM RN PRIVATE DUTY Lab Department of Laboratory Medicine and Pathology, [facility] in [place], [place] [address] [place] [phone] Opal Marcano M.D. [address] [place] [phone] 01/28/2025 11:00 AM RN PRIVATE DUTY Infusion Department of Oncology in [place], [place] [address] [place] [phone] Opal Marcano M.D. [address] [place] [phone] 04/03/2025 3:00 PM RN PRIVATE DUTY Office Visit Department of Urology in [place], [place] [address] [place] [phone] Pema Rojas M.D. [address] [place] [phone] Scheduled Referrals Name Type Priority Associated Diagnoses [...] and management can be found on the [employer] site. Link [email or web address] other things you bakeorg/topic/clinical-answers/[email or web address]/cpm-[email or web address] 81636 Procedure Note Wilain Bone M.D. - 12/18/2024 EXAM: US LOWER [...] thrombosis and management can be found on the[facility] site. [email or web address]/[email or web address]/cpm -2049 2485 IMPRESSION: Negative for acute DVT. Yaritza Nance APRN, C.N.P., M.S.N. [facility] P ROCEDURES Final Result documented in this encounter Visit Diagnoses Diagnosis Malignant Neoplasm Of Bladder (HCC)- Primary Medication Therapy Truss Driver Helper Not Anticoagulant Jail Current Drug Therapy, Chemotherapy Swelling Leg Left [...] FROM LIGHT.Indications:Malignant Neoplasm Of Bladder (HCC),Medication Therapy Jail Not Anticoagulant,Truss Driver Helper Current Drug Therapy, Chemotherapy New Bag 12/17/2024 4:04 PM CDT 70 mg 234 mL/hr NaCl 0.9% infusion 20 mL/hr, intravenous, Continuous Infusion: Per Instructions PRN, IV street railway line installer, Starting on Tue12/17/24 at 1425, For 1 dayIndications:Malignant Neoplasm Of Bladder (HCC),Medication Therapy Jail Not Anticoagulant,Truss Driver Helper Current Drug Therapy, Chemotherapy New Bag 12/17/2024 2:40 PM CDT 20 mL/hr 20 mL/hr ondansetron (PF) injection 8 mg (Zofran) 8 mg, intravenous, Once, On Tue12/17/24 at 1445, For 1 doseIndications:Malignant Neoplasm Of Bladder (HCC),Medication Therapy Jail Not Anticoagulant,Jail Current Drug Therapy, Chemotherapy Given 12/17/2024 2:50 [...] documented as of this encounter Care Teams Reconnaissance Man Relationship Specialty Start Date End Date Elsewhere, Pcp PCP - General Internal Medicine 10/09/24 documented as of this encounter
--- OUTSIDE RECORDS SUMMARY | 2024-12-18 10:19 | XMS_ITS | Encounter Summary ---
Author Organization [facility] Address [address] [place] [address] Care Team Providers Care Almond Huller Name Role Phone Elsewhere, Pcp Primary Care Provider Unavailabl e Reason for Referral * Outpatient (Routine) - Closed Specialty Diagnoses / Procedures Referred By Contac t Referred To Contact Diagnoses Swelling Leg Left Procedures US Lower Extremity Veins Left Yaritza Nance APRN, C.NSamantha., M.S.N. [address] [place] [phone] Phone: tel: fax: [facility] Referral ID Status Reason Start Date Expiration Date Visits Re quested Visits Authorized [id number] Closed 12/17/2024 03/19/2026 1 1 Reason for Visit * Outpatient (Routine) - Closed Specialty Diagnoses / Procedures Referred By Contac t Referred To Contact Diagnoses Swelling Leg Left Procedures US Lower Extremity Veins Left Yaritza Nance APRN, C.N.P., M.S.N. [address] [place] [phone] Phone: tel: fax: [facility] Referral ID Status Reason Start Date Expiration Date Visits Re quested Visits Authorized [id number] Closed 12/17/2024 03/19/2026 1 1 Encounter Details Date Type Department Care Team (Latest Contact Info) Description 12/18/2024 10:19 AM CDT - 12/18/2024 11:59 PM CDT Hospital Encounter Department of Radiology, [facility], in [place], [place] [address] [place] [address] Yaritza Nance APRN, C.N.P., M.S.N. [address] [place] [address] Swelling Leg Left Discharge Disposition: Home or Self Care Social History Tobacco Use Types Packs/Day Years Used Date Smoking Tobacco: Former Smokeless Tobacco: Never Alcohol Use Standard Drinks/Week Comments Yes 3 (1 standard drink = 0.6 oz pur e alcohol) [facility] Utilities Answer Date Recorded In the past 12 months has e [employer], gas, oil, or water [employer] threatened to shut off services in your [...] 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, CHISEL MORTISER OPERATOR, BERTA) 05/11/2020 Sex and Gender Information Value Date Recorded Sex Assigned at Male 09/04/2024 9:32 AM CDT 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 90 tablet 3 07/15/2020 cephalexin (Keflex) 500 mg capsule 10/24/2024 cyanocobalamin (Vitamin B-12) 1,000 mcg/mL injection Inject [...] itching. 30 tablet 3 10/17/2024 metoprolol succinate (Toprol XL) 25 mg 24 hr tablet Take 1 tablet (25 mg total) by mouth daily. 30 tablet 2 11/12/2024 02/11/20 nitroglycerin (NITROSTAT) 0.[address] [...] 30 tablet 3 10/17/2024 10/18/19 26 rosuvastatin (Crestor) 20 mg tablet Take 1 tablet (20 mg total) by mouth at bedtime. 30 tablet 2 11/12/2024 02/11/20 25 sulfamethoxazol e-trimethoprim (Bactrim DS) 800-160 mg per tablet 10/24/2024 triamcinolone (Kenalog) 0.1 % lotionIndicatio ns:Malignant Neoplasm Of Bladder (HCC) Apply 1 Application topically 2 (two) times a day as needed (Rash, Itching). 180 mL 3 10/17/2024 documented as of this encounter Plan of Treatment Upcoming Encounters Date Type Department Care Team (Late st Contact Info) Description 01/18/2025 2:45 PM CDT Clinical Communication Virtual Review in [place], [place] 200 [place] [address] 01/21/2025 11:30 AM CDT Lab Department of Laboratory Medicine and Pathology, [facility], in [place], [place] [address] [place] [phone] Opal Marcano M.D. [address] [place] [phone] 01/21/2025 1:30 PM CDT Office Visit Division of Hematology in [place], [place] [address] [place] [phone] Polo Dwyer M.D. [address] [place] [phone] 01/21/2025 2:30 PM CDT Infusion Department of Oncology in [place], [place] [address] [place] [phone] Opal Marcano M.D. [address] [place] [phone] 01/28/2025 9:00 AM JEWELRY ENGRAVER Lab Department of Laboratory Medicine and Pathology, [facility] in [place], [place] [address] [place] [phone] Opal Marcano M.D. [address] [place] [phone] 01/28/2025 11:00 AM JEWELRY ENGRAVER Infusion Department of Oncology in [place], [place] [address] [place] [phone] Opal Marcano M.D. [address] [place] [phone] 04/03/2025 3:00 PM JEWELRY ENGRAVER Office Visit Department of Urology in [place], [place] [address] [place] [phone] Pema Rojas M.D. [address] [place] [phone] documented as of this encounter Procedures Procedure Name Priority Date/Time Associated Diagnosis Comments US LOWER EXTREMITY VEINS LEFT RAD - Routine (most inpatients and all outpatients) 12/18/2024 11:20 AM CDT Swelling Leg Left documented in this encounter Results * US Lower Extremity [...] and management can be found on the [employer] site. Link https://[employer]org/topic/clinical-answers/cnt-58051981/cpm-204 12675 Procedure Note Wilian Bone M.D. - 12/18/2024 [...] thrombosis and management can be found on the[employer] site. Linkhttps://[email or web address]/topic/clinical-answers/[email or web address]/cpm -2049 1725 IMPRESSION: Negative for acute DVT. Yaritza Nance APRN, C.N.P., M.S.N. [facility] ROCEDURES Final Result documented in this encounter Visit Diagnoses Diagnosis Swelling Leg Left documented in this encounter Additional Health Concerns Infection Onset Date Last Indicated Resolved Time Protective Environment 11/01/2024 11/01/2024 documented as of this encounter Care Teams Almond Huller Relationship Specialty Start Date End Date Elsewhere, Pcp PCP - General Internal Medicine 10/09/24 documented as of this encounter
--- OUTSIDE RECORDS SUMMARY | 2024-12-28 14:15 | XMS_ITS | Encounter Summary ---
Author Organization [facility] Address [address] [place] [address] Care Team Providers Care Supervisor Fusing Room Name Role Phone Elsewhere, Pcp Primary Care Provider Unavailabl e Reason for Visit * Reason Onset Date Comments Previsit Preparation 12/28/2024 * Appointment Request (Routine) - Authorized Specialty Diagnoses / Procedures Referred By Keiko latif Referred To Contact Oncology Referral ID Status Reason Start Date Expiration Date V isits Requested Visits Authorized [id number] Authorized 11/23/2024 02/23/2026 1 1 Encounter Details Date Type Department Care Team (Latest Contact Info) Description 12/28/2024 2:15 PM CDT Clinical Communication Virtual Review in [place], [place] 200 [place] [address] Previsit Preparation Social History Tobacco Use Types Packs/Day Years Used Date Smoking Tobacco: Former Smokeless Tobacco: Never Alcohol Use Standard Drinks/Week Comments Yes 3 (1 standard drink = 0.6 oz pur e alcohol) [facility] Utilities Answer Date Recorded In the past [...] living situation today? I have a [facility] place to live 10/09/2024 Education Answer Date Recorded What is the highest level of school you have completed or the highest degree you have received? 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 [address] [place] [phone] 01/21/2025 1:30 PM CDT Office Visit Division of Hematology in [place], [place] [address] [place] [phone] Polo Dwyer M.D. [address] [place] [phone] 01/21/2025 2:30 PM CDT Infusion Department of Oncology in [place], [place] [address] [place] [phone] Opal Marcano M.D. [address] [place] [phone] 01/28/2025 9:00 AM PROFESSIONAL BASS FISHER Lab Department of Laboratory Medicine and Pathology, [facility] in [place], [place] [address] [place] [phone] Opal Marcano M.D. [address] [place] [phone] 01/28/2025 11:00 AM PROFESSIONAL BASS FISHER Infusion Department of Oncology in [place], [place] [address] [place] [phone] Opal Marcano M.D. [address] [place] [phone] 04/03/2025 3:00 PM PROFESSIONAL BASS FISHER Office Visit Department of Urology in [place], [place] [address] [place] [phone] Pema Rojas M.D. [address] [place] [phone] documented as of this encounter Visit Diagnoses Not on filedocumented in this encounter Additional Health Concerns Infection Onset Date Last Indicated Resolved Time Protective Environment 11/01/2024 11/01/2024 documented as of this encounter Care Teams Supervisor Fusing Room Relationship Specialty Start Date End Date Elsewhere, Pcp PCP - General Internal Medicine 10/09/24 documented as of this encounter
--- OUTSIDE RECORDS SUMMARY | 2024-12-31 12:10 | XMS_ITS | Encounter Summary ---
Author Organization [facility] Address [address] [place] [address] Care Team Providers Care Paper Reel Operator Name Role Phone Elsewhere, Pcp Primary Care Provider Unavailabl e Reason for Referral * MRI/CAT/PET Scan (Routine) - Closed Specialty Diagnoses / Procedures Referred By Contac t Referred To Contact Radiology Diagnoses Malignant Neoplasm Of Bladder (HCC) Procedures CT Chest with IV Contrast Polo Dwyer M.D. 200 [place] [address] Phone: tel: fax: [facility] Referral ID Status Reason Start Date Expiration Date Visits Re quested Visits Authorized [id number] Closed 12/10/2024 03/12/2026 1 1 * MRI/CAT/PET Scan (Routine) - Closed Specialty Diagnoses / Procedures Referred By Contac t Referred To Contact Radiology Diagnoses Malignant Neoplasm Of Bladder (HCC) Procedures CT Urogram without and with IV Contrast Polo Dwyer M.D. 200 [place] [address] Phone: tel: fax: [facility] Referral ID Status Reason Start Date Expiration Date Visits Re quested Visits Authorized [id number] Closed 12/10/2024 03/12/2026 1 1 Reason for Visit * MRI/CAT/PET Scan (Routine) - Closed Specialty Diagnoses / Procedures Referred By Keiko latif Referred To Contact Radiology Diagnoses Malignant Neoplasm Of Bladder (HCC) Procedures CT Chest with IV Contrast Polo Dwyer M.D. [address] [place] [phone] Phone: tel: fax: [facility] Referral ID Status Reason Start Date Expiration Date Visits Re quested Visits Authorized [id number] Closed 12/10/2024 03/12/2026 1 1 Encounter Details Date Type Department Care Team (Late st Contact Info) Description 12/31/2024 12:10 PM CDT - 12/31/2024 11:59 PM CDT Hospital Encounter Department of Radiology, [facility], in [place], [place] [address] [place] [address] Polo Dwyer M.D. [address] [place] [phone] Malignant Neoplasm Of Bladder (HCC) Discharge Disposition: Home or Self Care Social History Tobacco Use Types Packs/Day Years Used Date Smoking Tobacco: Former Smokeless Tobacco: Never Alcohol Use Standard Drinks/Week Comments Yes 3 (1 standard drink = 0.6 oz pur e alcohol) [facility] Utilities Answer Date Recorded In the past 12 months has 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 30 tablet 2 11/12/2024 02/11/20 25 nitroglycerin (NITROSTAT) 0.[address] [...] PM CDT Clinical Communication Virtual Review in [place], [place] [address] [place] [address] 01/21/2025 11:30 AM CDT Lab Department of Laboratory Medicine and Pathology, [facility] in [address] [phone] Opal Marcano M.D. [address] [place] [phone] 01/21/2025 1:30 PM CDT Office Visit Division of Hematology in [address] [phone] Polo Dwyer M.D. [address] [place] [phone] 01/21/2025 2:30 PM CDT Infusion Department of Oncology in [address] [phone] Opal Marcano M.D. [address] [place] [phone] 01/28/2025 9:00 AM ELECTRIC MOTOR WINDER Lab Department of Laboratory Medicine and Pathology, [facility], in [address] [phone] Opal Marcano M.D. [address] [place] [phone] 01/28/2025 11:00 AM ELECTRIC MOTOR WINDER Infusion Department of Oncology in [address] [phone] Opal Marcano M.D. [address] [place] [phone] 04/03/2025 3:00 PM ELECTRIC MOTOR WINDER Office Visit Department of Urology in [address] [phone] Pema Rojas M.D. [address] [place] [phone] documented as of this encounter Procedures Procedure Name Priority Date/Time Associated Diagnosis Comments CT UROGRAM WITHOUT AND WITH IV CONTRAST RAD - Routine (most inpatients and all outpatients) 12/31/2024 1:12 PM CDT Malignant Neoplasm Of Bladder (HCC) CT CHEST WITH IV CONTRAST RAD - Routine (most inpatients and all outpatients) 12/31/2024 1:12 PM CDT Malignant Neoplasm Of Bladder (HCC) documented in this encounter Results * CT Chest with [...] of pulmonary nodules. IMPRESSION: Stable chest CT. us Polo Dwyer M.D. IM CT PROCEDURES Final Result * CT Urogram [...] which will be reported separately. Procedure Note Ehman, Valentino C, M.D. - 12/31/2024 EXAM: CT UROGRAM WITHOUT [...] in the abdomenor pelvis. Polo Dwyer M.D. [facility] CT PROCEDURES Final Result documented in this encounter Visit Diagnoses Diagnosis Malignant Neoplasm Of Bladder (HCC) documented in this encounter Administered Medications Inactive Administered Medications - up to 3 most recent administrations Medication Order MAR Action Action Date Dose Rate Site iohexoL 300 mg iodine/mL solution 1-200 mL (Omnipaque) 1-200 mL, intravenous, Once in imaging, contrast, Starting on 12/31/24 at 1229, For 1 dose, Imaging Protocol Orders, Dose per Radiant Medication Guidelines Given 12/31/2024 12:49 PM CDT 140 mL sodium chloride (PF) 0.9 % injection 1-100 mL 1-100 mL, intravenous, Once, On 12/31/24 at 1245, For 1 dose, Imaging Protocol Orders, Dose per Radiant Medication Guidelines Given 12/31/2024 12:49 PM CDT 190 mL documented in this encounter Additional Health Concerns Infection Onset Date Last Indicated Resolved Time Protective Environment 11/01/2024 11/01/2024 documented as of this encounter Care Teams Paper Reel Operator Relationship Specialty Start Date End Date Elsewhere, Pcp PCP - General Internal Medicine 10/09/24 documented as of this encounter
--- OUTSIDE RECORDS SUMMARY | 2024-12-31 16:00 | XMS_ITS | Encounter Summary ---
Author Organization [facility] Address [address] [place] [address] Care Team Providers Care Supervisor Adult Education Name Role Phone Elsewhere, Pcp Primary Care Provider Unavailabl e Reason for Referral * Outpatient (Routine) - Authorized Specialty Diagnoses / Procedures Referred By Keiko latif Referred To Contact Urology Diagnoses Malignant Neoplasm Of Bladder (HCC) Aziza Dwyer M.D. [address] [place] [phone] Phone: tel: fax: Pema Rojas M.D. [address] [place] [phone] Phone: tel: fax: Referral ID Status Reason Start Date Expiration Date V isits Requested Visits Authorized [id number] Authorized 01/04/2025 07/06/2026 1 1 Reason for Visit * Episode Based Medications (Routine) - Authorized Specialty Diagnoses / Procedures Referred By Keiko latif Referred To Contact Diagnoses Malignant Neoplasm Of Bladder (HCC) Medication Therapy Pillowcase Folder Not Anticoagulant Skilled Nursing Current Drug Therapy, Chemotherapy Aziza Dwyer M.D. [address] [place] [phone] Phone: tel: fax: Department of Oncology in [place], [place] [address] [place] [address] Phone: tel: Referral ID Status Reason Start Date Expiration Date V isits Requested Visits Authorized [id number] Authorized 10/17/2024 10/17/2026 99 99 Encounter Details Date Type Department Care Team (Late st Contact Info) Description 12/31/2024 4:00 PM CDT Office Visit Department of Oncology in [place], [place] [address] [place] [address] Aziza Dwyer M.D. [address] [place] [address] Malignant Neoplasm Of Bladder (HCC) (Primary Dx); Change In Bowel Habit; Edema Lower Extremity Social History Tobacco Use Types Packs/Day Years Used Date Smoking Tobacco: Former Smokeless Tobacco: Never Alcohol Use Standard Drinks/Week Comments Yes 3 (1 standard drink = 0.6 oz pur e alcohol) [facility] Utilities Answer Date Recorded In the past 12 months has [employer], gas, oil, or water [employer] threatened to shut off services in your [...] 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, TRACTOR OPERATOR HELPER, BERTA) 05/11/2020 Sex and Gender Information Value Date Recorded Sex Assigned at Male 09/04/2024 9:32 AM CDT Legal Sex Male 5:45 PM SERVICE CASHIER Gender Identity Male 09/04/2024 9:32 AM CDT [...] has avoided catheter exchange at his local [facility] given experiencedissues with leakage in the past. [...] of care to a local oncologist in [place], if possible. - Will discuss case with [...] visit. This patient was discussed with Medical cosmetic sales consultant, Dr. Olivarez. Aziza Dwyer M.D. Hematology/Oncology Fellow, PGY-4 Pgr: [phone] documented in this encounter Miscellaneous Notes * Addendum Note - Aziza Dwyer M.D. - 12/31/2024 4:00 PM CDTAddended by: AZIZA DWYER on: 01/04/2025 04:40 PM Modules accepted: Orders documented in this encounter Plan of Treatment Upcoming Encounters Date Type Department Care Team (Late st Contact Info) Description 01/18/2025 2:45 PM CDT Clinical Communication Virtual Review in [address] [phone] 01/21/2025 11:30 AM CDT Lab Department of Laboratory Medicine and Pathology, [facility] in [address] [phone] Opal Marcano M.D. [address] [place] [phone] 01/21/2025 1:30 PM CDT Office Visit Division of Hematology in [address] [phone] Aziza Dwyer M.D. [address] [place] [phone] 01/21/2025 2:30 PM CDT Infusion Department of Oncology in [address] [phone] Opal Marcano M.D. [address] [place] [phone] 01/28/2025 9:00 AM SERVICE CASHIER Lab Department of Laboratory Medicine and Pathology, [facility], in [place], [place] [address] [place] [address] Opal Marcano M.D. [address] [place] [phone] 01/28/2025 11:00 AM SERVICE CASHIER Infusion Department of Oncology in [place], [place] [address] [place] [address] Opal Marcano M.D. [address] [place] [phone] 04/03/2025 3:00 PM SERVICE CASHIER Office Visit Department of Urology in [place], [place] [address] [place] [address] Pema Rojas M.D. [address] [place] [phone] Scheduled Referrals Name Type Priority Associated Diagnoses [...] as of this encounter Care Teams Supervisor Adult Education Relationship Specialty Start Date End Date Elsewhere, Pcp PCP - General Internal Medicine 10/09/24 documented as of this encounter
--- OUTSIDE RECORDS SUMMARY | 2025-01-01 07:30 | XMS_ITS | Encounter Summary ---
Author Organization [facility] Address [address] [place] [address] Care Team Providers Care Electron Microscopist Name Role Phone Elsewhere, Pcp Primary Care Provider Unavailabl e Reason for Visit * Episode Based Medications (Routine) - Authorized Specialty Diagnoses / Procedures Referred By Keiko t Referred To Contact Diagnoses Malignant Neoplasm Of Bladder (HCC) Medication Therapy Crime Investigator Special Agent Not Anticoagulant [facility] Current Drug Therapy, Chemotherapy Polo Dwyer M.D. [address] [place] [phone] Phone: tel: fax: Department of Oncology in [place], [place] [address] [place] [phone] Phone: tel: Referral ID Status Reason Start Date Expiration Date V isits Requested Visits Authorized [id number] Authorized 10/17/2024 10/17/2026 99 99 Encounter Details Date Type Department Care Team (Late st Contact Info) Description 01/01/2025 7:30 AM CDT Infusion Department of Oncology in [place], [place] [address] [place] [phone] Opal Marcano M.D. [address] [place] [phone] Malignant Neoplasm Of Bladder (HCC) (Primary Dx); Medication Therapy Crime Investigator Special Agent Not Anticoagulant; Mcc Current Drug Therapy, Chemotherapy Social History Tobacco Use Types Packs/Day Years Used Date Smoking Tobacco: Former Smokeless Tobacco: Never Alcohol Use Standard Drinks/Week Comments Yes 3 (1 standard drink = 0.6 oz pur e alcohol) [facility] Utilities Answer Date Recorded In the past [...] 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, NUTRITION INTERN, BERTA) 05/11/2020 Sex and Gender Information Value Date Recorded Sex Assigned at Male 09/04/2024 9:32 AM CDT Legal Sex Male 5:45 PM POOL TABLE OPERATOR Gender Identity Male 09/04/2024 9:32 AM CDT Sexual Orientation Straight 09/04/2024 9: 32 AM CDT documented as of this encounter Plan of Treatment Upcoming Encounters Date Type Department Care Team (Late st Contact Info) Description 01/18/2025 2:45 PM CDT Clinical Communication Virtual Review in [place], [place] 200 [place] [phone] 01/21/2025 11:30 AM CDT Lab Department of Laboratory Medicine and Pathology, [facility] in [place], [place] [address] [place] [phone] Opal Marcano M.D. [address] [place] [phone] 01/21/2025 1:30 PM CDT Office Visit Division of Hematology in [place], [place] [address] [place] [phone] Polo Dwyer M.D. [address] [place] [phone] 01/21/2025 2:30 PM CDT Infusion Department of Oncology in [address] [phone] Opal Marcano M.D. [address] [place] [phone] 01/28/2025 9:00 AM POOL TABLE OPERATOR Lab Department of Laboratory Medicine and Pathology, [facility], in [place], [place] [address] [place] [phone] Opal Marcano M.D. [address] [place] [phone] 01/28/2025 11:00 AM POOL TABLE OPERATOR Infusion Department of Oncology in [address] [phone] Opal Marcano M.D. [address] [place] [phone] 04/03/2025 3:00 PM POOL TABLE OPERATOR Office Visit Department of Urology in [place], [place] [address] [place] [phone] Pema Rojas M.D. [address] [place] [phone] documented as of this encounter Visit Diagnoses Diagnosis Malignant Neoplasm Of Bladder (HCC)- Primary Medication Therapy Crime Investigator Special Agent Not Anticoagulant Mcc Current Drug Therapy, Chemotherapy documented in this [...] FROM LIGHT.Indications:Malignant Neoplasm Of Bladder (HCC),Medication Therapy Mcc Not Anticoagulant,Mcc Current Drug Therapy, Chemotherapy New Bag 01/01/2025 8:52 AM CDT 70 mg 234 mL/hr ondansetron (PF) injection 8 mg (Zofran) 8 mg, intravenous, Once, On Tue01/01/25 at 0830, For 1 doseIndications:Malignant Neoplasm Of Bladder (HCC),Medication Therapy Crime Investigator Special Agent Not Anticoagulant,Mcc Current Drug Therapy, Chemotherapy Given 01/01/2025 8:20 [...] 0.2-5 micron).Indications:Malignant Neoplasm Of Bladder (HCC),Medication Therapy Crime Investigator Special Agent Not Anticoagulant,Crime Investigator Special Agent Current Drug Therapy, Chemotherapy New Bag 01/01/2025 [...] documented as of this encounter Care Teams Electron Microscopist Relationship Specialty Start Date End Date Elsewhere, Pcp PCP - General Internal Medicine 10/09/24 documented as of this encounter
--- OUTSIDE RECORDS SUMMARY | 2025-01-07 11:00 | XMS_ITS | Encounter Summary ---
Author Organization [facility] Address [address] [place] [address] Care Team Providers Care Weir Fisher Name Role Phone Elsewhere, Pcp Primary Care Provider Unavailabl e Reason for Visit * Episode Based Medications (Routine) - Authorized Specialty Diagnoses / Procedures Referred By Keiko t Referred To Contact Diagnoses Malignant Neoplasm Of Bladder (HCC) Medication Therapy Client Account Manager Not Anticoagulant [facility] Current Drug Therapy, Chemotherapy Polo Dwyer M.D. [address] [place] [phone] Phone: tel: fax: Department of Oncology in [place], [place] [address] [place] [phone] Phone: tel: Referral ID Status Reason Start Date Expiration Date V isits Requested Visits Authorized [id number] Authorized 10/17/2024 10/17/2026 99 99 Encounter Details Date Type Department Care Team (Late st Contact Info) Description 01/07/2025 11:00 AM CDT Infusion Department of Oncology in [place], [place] [address] [place] [phone] Opal Marcano M.D. [address] [place] [phone] Malignant Neoplasm Of Bladder (HCC) (Primary Dx); Medication Therapy [facility] Not Anticoagulant; Client Account Manager Current Drug Therapy, Chemotherapy Social History Tobacco [...] 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, LIQUOR GALLERY OPERATOR, BERTA) 05/11/2020 Sex and Gender Information Value Date Recorded Sex Assigned at Male 09/04/2024 9:32 AM CDT Legal Sex Male 5:45 PM HEDIS COORDINATOR Gender Identity Male 09/04/2024 9:32 AM [...] PM CDT Clinical Communication Virtual Review in [place], [place] 200 [place] [phone] 01/21/2025 11:30 AM CDT Lab Department of Laboratory Medicine and Pathology, [place], [place] [address] [place] [phone] Opal Marcano M.D. [address] [place] [phone] 01/21/2025 1:30 PM CDT Office Visit Division of Hematology in [address] [phone] Polo Dwyer M.D. [address] [place] [phone] 01/21/2025 2:30 PM CDT Infusion Department of Oncology in [place], [place] [address] [place] [phone] Opal Marcano M.D. [address] [place] [phone] 01/28/2025 9:00 AM HEDIS COORDINATOR Lab Department of Laboratory Medicine and Pathology, [facility] in [place], [place] [address] [place] [phone] Opal Marcano M.D. [address] [place] [phone] 01/28/2025 11:00 AM HEDIS COORDINATOR Infusion Department of Oncology in [place], [place] [address] [place] [phone] Opal Marcano M.D. [address] [place] [phone] 04/03/2025 3:00 PM HEDIS COORDINATOR Office Visit Department of Urology in [place], [place] [address] [place] [phone] Pema Rojas M.D. [address] [place] [phone] documented as of this encounter Visit Diagnoses Diagnosis Malignant Neoplasm Of Bladder (HCC)- Primary Medication Therapy Client Account Manager Not Anticoagulant Client Account Manager Current Drug Therapy, Chemotherapy documented in this [...] (HCC),Medication Therapy [facility] Not Anticoagulant,Client Account Manager Current Drug Therapy, Chemotherapy New Bag 01/07/2025 11:51 AM CDT 70 mg 234 mL/hr ondansetron (PF) injection 8 mg (Zofran) 8 mg, intravenous, Once, On Tue01/07/25 at 1145, For 1 doseIndications:Malignant Neoplasm Of Bladder (HCC),Medication Therapy [facility] Not Anticoagulant,Client Account Manager Current Drug Therapy, Chemotherapy Given 01/07/2025 11:28 [...] documented as of this encounter Care Teams Weir Fisher Relationship Specialty Start Date End Date Elsewhere, Pcp PCP - General Internal Medicine 10/09/24 documented as of this encounter
--- OUTSIDE RECORDS SUMMARY | 2025-01-17 11:48 | XMS_ITS | Encounter Summary ---
Author Organization [facility] Address [address] [place] [address] Care Team Providers Care High [address] Justice Name Role Phone Elsewhere, Pcp Primary Care Provider Unavailabl e Encounter Details Date Type Department Care Team (Late st Contact Info) Description 12/19/2024 Results Follow-Up Department of Oncology in [place], [place] [address] [place] [address] Polo Dwyer M.D. [address] [place] [phone] CBC, Chemotherapy, No Alerts, Comprehensive Metabolic Panel Social History Tobacco Use Types Packs/Day Years Used Date Smoking Tobacco: Former Smokeless Tobacco: Never Alcohol Use Standard Drinks/Week Comments Yes 3 (1 standard drink = 0.6 oz pur e alcohol) [facility] Utilities Answer Date Recorded In the past 12 months has [facility] [employer], gas, oil, or water [employer] threatened to shut off services in your [...] your living situation today? I have a [facility] place to live 10/09/2024 Education Answer Date Recorded What is the highest level of school you have completed or the highest degree you have received? 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, COLD PATCHER, BERTA) 05/11/2020 Sex and Gender Information Value Date Recorded Sex Assigned at Male 09/04/2024 9:32 AM CDT Legal Sex Male 5:45 PM MANAGER TRAFFIC Gender Identity Male 09/04/2024 9:32 AM CDT Sexual Orientation Straight 09/04/2024 9: 32 AM CDT documented as of this encounter Miscellaneous Notes * Telephone Encounter - Polo Dwyer M.D. - 01/11/2025 12:17 PM CDT Patient records will be sent to the [facility] in [place], [place] for transfer of careto a local provider as requested by Mr. Samayoa. I spoke with Mr. Samayoa this afternoon over the phone and provided this update. I also conveyed that I am happy to discuss his case with his local provideronce established. Mr. Samayoa mentioned that he was unable to have his Bryant catheter exchange locally, and so I recommend he reach out to our Urology group for assistance with arranging catheter exchange. Additionally, he is currently scheduled to see our Urology colleagues on 04/03/25 for re-evaluation of Bryant needs and potential removal. All patient questions were addressed today. documented in this encounter Plan of Treatment Upcoming Encounters Date Type Department Care Team (Late st Contact Info) Description 01/18/2025 2:45 PM CDT Clinical Communication Virtual Review in [address] [phone] 01/21/2025 11:30 AM CDT Lab Department of Laboratory Medicine and Pathology, [facility] in [address] [phone] Opal Marcano M.D. [address] [place] [phone] 01/21/2025 1:30 PM CDT Office Visit Division of Hematology in [address] [phone] Polo Dwyer M.D. [address] [place] [phone] 01/21/2025 2:30 PM CDT Infusion Department of Oncology in [address] [phone] Opal Marcano M.D. [address] [place] [phone] 01/28/2025 9:00 AM MANAGER TRAFFIC Lab Department of Laboratory Medicine and Pathology, [facility], in [address] [phone] Opal Marcano M.D. [address] [place] [phone] 01/28/2025 11:00 AM MANAGER TRAFFIC Infusion Department of Oncology in [address] [phone] Opal Marcano M.D. [address] [place] [address] 04/03/2025 3:00 PM MANAGER TRAFFIC Office Visit Department of Urology in [place], [place] [address] [place] [phone] Pema Rojas M.D. [address] [place] [phone] documented as of this encounter Visit Diagnoses Not on filedocumented in this encounter Additional Health Concerns Infection Onset Date Last Indicated Resolved Time Protective Environment 11/01/2024 11/01/2024 documented as of this encounter Care Teams High Court Justice Relationship Specialty Start Date End Date Elsewhere, Pcp PCP - General Internal Medicine 10/09/24 documented as of this encounter
--- OUTSIDE RECORDS SUMMARY | 2025-01-17 11:49 | XMS_ITS | Encounter Summary ---
Author Organization [facility] Address [address] [place] [address] Care Team Providers Care Cashier And Salesperson Name Role Phone Elsewhere, Pcp Primary Care Provider Unavailabl e Encounter Details Date Type Department Care Team (Late st Contact Info) Description 11/02/2024 Results Follow-Up Department of Oncology in [place], [place] [address] [place] [address] Polo Dwyer M.D. [address] [place] [address] CBC with Differential, Blood, Comprehensive Metabolic Panel, Thyroid Function [place], Additional followed-up results: 2 Social History Tobacco Use Types Packs/Day Years Used Date Smoking Tobacco: Former Smokeless Tobacco: Never Alcohol Use Standard Drinks/Week Comments Yes 3 (1 standard drink = 0.6 oz pur e alcohol) [facility] Utilities Answer Date Recorded In the past [address] [facility], gas, oil, or water [employer] threatened to shut off services in your [...] living situation today? I have a [facility] place to live 10/09/2024 Education Answer Date Recorded What is the highest level of school you have completed or the highest degree you have received? 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, MANAGER COMMUNITY, BERTA) 05/11/2020 Sex and Gender Information Value Date Recorded Sex Assigned at Male 09/04/2024 9:32 AM CDT Legal Sex Male 5:45 PM ELECTION WATCHER Gender Identity Male 09/04/2024 9:32 AM CDT [...] PM CDT Clinical Communication Virtual Review in [place], [place] 200 [place] [address] 01/21/2025 11:30 AM CDT Lab Department of Laboratory Medicine and Pathology, [facility] in [place], [place] [address] [place] [phone] Opal Marcano M.D. [address] [place] [phone] 01/21/2025 1:30 PM CDT Office Visit Division of Hematology in [place], [place] [address] [place] [phone] Polo Dwyer M.D. [address] [place] [phone] 01/21/2025 2:30 PM CDT Infusion Department of Oncology in [place], [place] [address] [place] [phone] Opal Marcano M.D. [address] [place] [phone] 01/28/2025 9:00 AM ELECTION WATCHER Lab Department of Laboratory Medicine and Pathology, [facility], in [place], [place] [address] [place] [phone] Opal Marcano M.D. [address] [place] [phone] 01/28/2025 11:00 AM ELECTION WATCHER Infusion Department of Oncology in [place], [place] [address] [place] [phone] Opal Marcano M.D. [address] [place] [phone] 04/03/2025 3:00 PM ELECTION WATCHER Office Visit Department of Urology in [place], [place] [address] [place] [phone] Pema Rojas M.D. [address] [place] [address] documented as of this encounter Visit Diagnoses Not on filedocumented in this encounter Additional Health Concerns Infection Onset Date Last Indicated Resolved Time Protective Environment 11/01/2024 11/01/2024 documented as of this encounter Care Teams Cashier And Salesperson Relationship Specialty Start Date End Date Elsewhere, Pcp PCP - General Internal Medicine 10/09/24 documented as of this encounter
--- OUTSIDE RECORDS SUMMARY | 2025-01-17 11:49 | XMS_ITS | Encounter Summary ---
Author Organization [facility] Address [address] [place] [address] Care Team Providers Care Mend Worker Name Role Phone Elsewhere, Pcp Primary Care Provider Unavailabl e Encounter Details Date Type Department Care Team (Late st Contact Info) Description 12/11/2024 Orders Only Department of Oncology in [place], [place] [address] [place] [phone] Zuri Pichardo P.AMak-Shayna. [address] [place] [phone] Social History Tobacco Use Types Packs/Day Years Used Date Smoking Tobacco: Former Smokeless Tobacco: Never Alcohol Use Standard Drinks/Week Comments Yes 3 (1 standard drink = 0.6 oz pur e alcohol) [facility] Utilities Answer Date Recorded In the past 12 months has [facility] [employer], gas, oil, or water [employer] threatened to shut off services in your [...] your living situation today? I have a [facility] place to live 10/09/2024 Education Answer Date Recorded What is the highest level of school you have completed or the highest degree you have received? 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, GEOTHERMAL INSTALLER, BERTA) 05/11/2020 Sex and Gender Information Value Date Recorded Sex Assigned at Male 09/04/2024 9:32 AM CDT Legal Sex Male 5:45 PM HYPERION ANALYST Gender Identity Male 09/04/2024 9:32 AM CDT Sexual Orientation Straight 09/04/2024 9: 32 AM CDT documented as of this encounter Plan of Treatment Upcoming Encounters Date Type Department Care Team (Late st Contact Info) Description 01/18/2025 2:45 PM CDT Clinical Communication Virtual Review in [place], [place] 200 [place] [address] 01/21/2025 11:30 AM CDT Lab Department of Laboratory Medicine and Pathology, [facility], in [place], [place] [address] [place] [phone] Opal Marcano M.D. [address] [place] [phone] 01/21/2025 1:30 PM CDT Office Visit Division of Hematology in [place], [place] [address] [place] [address] Polo Dwyer M.D. [address] [place] [phone] 01/21/2025 2:30 PM CDT Infusion Department of Oncology in [place], [place] [address] [place] [address] Opal Marcano M.D. [address] [place] [phone] 01/28/2025 9:00 AM HYPERION ANALYST Lab Department of Laboratory Medicine and Pathology, [facility] in [place], [place] [address] [place] [address] Opal Marcano M.D. [address] [place] [phone] 01/28/2025 11:00 AM HYPERION ANALYST Infusion Department of Oncology in [place], [place] [address] [place] [address] Opal Marcano M.D. [address] [place] [phone] 04/03/2025 3:00 PM HYPERION ANALYST Office Visit Department of Urology in [place], [place] [address] [place] [phone] Pema Rojas M.D. [address] [place] [phone] documented as of this encounter Visit Diagnoses Not on filedocumented in this encounter Additional Health Concerns Infection Onset Date Last Indicated Resolved Time Protective Environment 11/01/2024 11/01/2024 documented as of this encounter Care Teams Mend Worker Relationship Specialty Start Date End Date Elsewhere, Pcp PCP - General Internal Medicine 10/09/24 documented as of this encounter
--- OUTSIDE RECORDS SUMMARY | 2025-01-17 11:49 | XMS_ITS | Encounter Summary ---
Author Organization [facility] Address [address] [place] [address] Care Team Providers Care Job Order Clerk Name Role Phone Elsewhere, Pcp Primary Care Provider Unavailabl e Reason for Visit * Reason Onset Date Comments Order Request 11/07/2024 Encounter Details Date Type Department Care Team ([facility] st Contact Info) Description 11/07/2024 Clinical Communication Division of Hematology in [place], [place] [address] [place] [phone] Polo Dwyer M.D. [address] [place] [phone] Order Request Social History Tobacco Use Types Packs/Day Years Used Date Smoking Tobacco: Former Smokeless Tobacco: Never Alcohol Use Standard Drinks/Week Comments Yes 3 (1 standard drink = 0.6 oz pur e alcohol) [facility] Utilities Answer Date Recorded In the past 12 months has [facility] [email or web address], gas, oil, or water [employer] threatened to shut off services in your [...] your living situation today? I have a [facility] place to live 10/09/2024 Education Answer Date Recorded What is the highest level of school you have completed or the highest degree you have received? 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, WATER FILTRATION TECHNICIAN, BERTA) 05/11/2020 Sex and Gender Information Value Date Recorded Sex Assigned at Male 09/04/2024 9:32 AM CDT Legal Sex Male 5:45 PM GROUT MACHINE OPERATOR Gender Identity Male 09/04/2024 9:32 AM CDT Sexual Orientation Straight 09/04/2024 9: 32 AM CDT documented as of this encounter Plan of Treatment Upcoming Encounters Date Type Department Care Team (Late st Contact Info) Description 01/18/2025 2:45 PM CDT Clinical Communication Virtual Review in [place], [place] 200 [place] [phone] 01/21/2025 11:30 AM CDT Lab Department of Laboratory Medicine and Pathology, [facility], in [place], [place] [address] [place] [phone] Opal Marcano M.D. [address] [place] [phone] 01/21/2025 1:30 PM CDT Office Visit Division of Hematology in [place], [place] [address] [place] [address] Polo Dwyer M.D. [address] [place] [phone] 01/21/2025 2:30 PM CDT Infusion Department of Oncology in [place], [place] [address] [place] [phone] Opal Marcano M.D. [address] [place] [phone] 01/28/2025 9:00 AM GROUT MACHINE OPERATOR Lab Department of Laboratory Medicine and Pathology, [facility] in [place], [place] [address] [place] [address] Opal Marcano M.D. [address] [place] [phone] 01/28/2025 11:00 AM GROUT MACHINE OPERATOR Infusion Department of Oncology in [place], [place] [address] [place] [phone] Opal Marcano M.D. [address] [place] [phone] 04/03/2025 3:00 PM GROUT MACHINE OPERATOR Office Visit Department of Urology in [place], [place] [address] [place] [phone] Pema Rojas M.D. [address] [place] [phone] documented as of this encounter Visit Diagnoses Not on filedocumented in this encounter Additional Health Concerns Infection Onset Date Last Indicated Resolved Time Protective Environment 11/01/2024 11/01/2024 documented as of this encounter Care Teams Job Order Clerk Relationship Specialty Start Date End Date Elsewhere, Pcp PCP - General Internal Medicine 10/09/24 documented as of this encounter
--- OUTSIDE RECORDS SUMMARY | 2025-01-17 11:49 | XMS_ITS | Encounter Summary ---
Author Organization [facility] Address [address] [place] [address] Care Team Providers Care Program Therapist Name Role Phone Elsewhere, Pcp Primary Care Provider Unavailabl e Encounter Details Date Type Department Care Team (Late st Contact Info) Description 08/14/2024 Orders Only Department of Urology in [place], [place] [address] [place] [address] [facility], Provider, MD [facility] Social History Tobacco [...] 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, MUD MILL TENDER, BERTA) 05/11/2020 Sex and Gender Information Value Date Recorded Sex Assigned at Male 09/04/2024 9:32 AM CDT Legal Sex Male 5:45 PM MOTION PICTURE SET UP WORKER Gender Identity Male 09/04/2024 9:32 AM CDT Sexual Orientation Straight 09/04/2024 9: 32 AM CDT documented as of this encounter Plan of Treatment Upcoming Encounters Date Type Department Care Team (Late st Contact Info) Description 01/18/2025 2:45 PM CDT Clinical Communication Virtual Review in [address] [phone] 01/21/2025 11:30 AM CDT Lab Department of Laboratory Medicine and Pathology, [facility], in [place], [place] [address] [place] [phone] Opal Marcano M.D. [address] [place] [phone] 01/21/2025 1:30 PM CDT Office Visit Division of Hematology in [address] [phone] Polo Dwyer M.D. [address] [place] [phone] 01/21/2025 2:30 PM CDT Infusion Department of Oncology in [address] [phone] Opal Marcano M.D. [address] [place] [phone] 01/28/2025 9:00 AM MOTION PICTURE SET UP WORKER Lab Department of Laboratory Medicine and Pathology, [facility], in [place], [place] [address] [place] [phone] Opal Marcano M.D. [address] [place] [phone] 01/28/2025 11:00 AM MOTION PICTURE SET UP WORKER Infusion Department of Oncology in [address] [phone] Opal Marcano M.D. [address] [place] [address] 04/03/2025 3:00 PM MOTION PICTURE SET UP WORKER Office Visit Department of Urology in [place], [place] [address] [place] [phone] Pema Rojas M.D. [address] [place] [phone] documented as of this encounter Results * [...] 08/16/2024 10:57 AM CDT DTL Predicted Range 3023-02280 mg/24 h 08/16/2024 10:57 AM CDT DTL Comment Micro done on <2.5 mL 08/16/2024 9:24 AM CDT DTL Urine (Urine, Indwelling Catheter) 08/16/2024 8:04 AM CDT 08/16/2024 8:56 AM CDT Callum Marcos M.D. LAB URINE ORDERABLES Final Result [facility] 200 [place] [address], [facility] DTL [facility] [address] [place] [address] documented in this encounter Visit Diagnoses Diagnosis Retention Urinary documented in this encounter Additional Health Concerns Infection Onset Date Last Indicated Resolved Time Protective Environment 11/01/2024 11/01/2024 documented as of this encounter Care Teams Program Therapist Relationship Specialty Start Date End Date Elsewhere, Pcp PCP - General Internal Medicine 10/09/24 documented as of this encounter
--- OUTSIDE RECORDS SUMMARY | 2025-01-17 11:49 | XMS_ITS | Clinical Summary ---
Author Organization [facility] Address [address], [place] [address] Care Team Providers Care Machine Bander And Cellophaner Name Role Phone Osorio Galvan MD Primary Care Provider [phone] Source Comments You are receiving this document as you are listed as the primary care provider,follow-up provider, or the patient has been referred to you for consultation.This is in compliance with the Medicare and[facility] EHR Incentive Program,which states Providers who transition their patient to another setting of careor provider of care or refers their patient to another provider of care shouldprovide summary care record for each transition of care or referral. 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 We will proceed with medical therapy for [...] Tdap) 07/28/2022 07/28/2012 COVID-19 Vaccine ( season) 2024 12/28/2021, 06/30/2021, 12/24/2020, Additional history exists Influenza [...] complete this topic Insurance MEDICARE Care Teams Machine Bander And Cellophaner Relationship Specialty Start Date End Date Osorio Gal[place] [address] PCP - General Family Practice 12/14/21
--- OUTSIDE RECORDS SUMMARY | 2025-01-17 11:49 | XMS_ITS | Clinical Summary ---
Author Organization [facility] Address [address] [place] [address] Care Team Providers Care Acute Care Nursing Assistant Name Role Phone Osorio Galvan MD Primary Care Provider [phone] Allergies Active Allergy Reactions Criticality Noted Date [...] enteric coated tabletIndications: Coronary artery disease involving nez perce heart without angina pectoris, unspecified vessel or lesion type,Ascending aorta dilatation,ASHD (arteriosclerotic heart disease),Hyperlipi demia, unspecified hyperlipidemia type Take 1 Tablet (81 mg) by mouth once daily with a meal. 07/18/19 25 Active nitroglycerin 0.4 mg sublingual tabletIndications: Coronary artery disease involving nez perce heart without angina pectoris, unspecified vessel or [...] every 4 weeks. 07/06/19 25 026 Active OLANZAPINE ORAL Take 2.5 mg by mouth at bedtime if needed (sleep). Active ondansetron (ZOFRAN ODT) [address] 8 mg on the tongue every 8 hours if needed for Nausea/Vomiting. Active prochlorperazine (COMPAZINE) 10 mg tablet Take 10 mg by mouth every 6 hours if needed for Nausea/Vomiting. 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 We will proceed with medical therapy for [...] Encounters Date Type Department Care Team Description 01/08/2025 Travel 01/08/2025 Telephone [facility] [address] [place] [address] Osorio Galvan MD Appointment (Has appt for cath removal, we have no orders. ) 12/17/2024 Orders Only [facility] Scanner 1 scan: (1-Ord) SANDOVAL, MULTIPLE LAB RESULTS, 12/17/2024 11/16/2024 10:05 AM CDT Office Visit [facility] [address] [place] [address] Osorio Galvan MD Memory Loss (Follow up to memory loss); Immunization/Injecti on (Would like his B12 injection today - last given 10/18/2024) 11/16/2024 Travel 11/01/2024 Telephone [facility] [address] [place] [address] Osorio Galvan MD Medication Management 11/01/2024 Telephone [facility] [address] [place] [address] Osorio Galvan MD Error-please disregard 10/24/2024 Orders Only [facility] Scanner 1 scan: (1-Ord) DARREN US SCROTUM, 10/24/2024 10/24/2024 Nurse Triage [facility] [address] [place] [address] Osorio Galvan MD Catheter Problem 10/23/2024 Orders Only [facility] Scanner 1 scan: (1-Ord) DARREN, URINALYSIS, 10/23/2024 10/23/2024 Nurse Triage [facility] [address] [place] [address] Osorio Galvan MD Catheter Problem 10/23/2024 Nurse Triage [facility] [address] [place] [address] Osorio Galvan MD Catheter Problem 10/22/2024 10:00 AM CDT Office Visit [facility] [address] [place] [address] Osorio Galvan MD Hospital F/U ([place] 10/07-10/11 ) 10/22/2024 Travel 10/18/2024 9:00 AM CDT Nurse/Clinic Staff Only [facility] [address] [place] [address] Immunization/Injecti on (VITAMIN B-12 INJECTION ) 10/18/2024 Travel from Last 3 Months Immunizations Immunization Administration Dates Next Due Amb Influenza, Inact (High-d ose) (Flu Clinic Only) 12/26/2015,12/26/2015,01/15/2014 COVID-19 VACCINE SPIKEVAX (M ODERNA 50MCG/0.5ML) 12YO+ PFS 05/31/2023,01/11/2023 COVID-19 vaccine (Maximum Balance Foundation-Bio NTech 30mcg/0.3mL) 12YO+ BIVALENT PF, MDV 08/12/2022,12/28/2021 COVID-19 vaccine (Pfizer-Bio NTech 30mcg/0.3mL) 12YO+ LESLI-SUCROSE PF, MDV 06/30/2021 COVID-19 vaccine (Maximum Balance Foundation-Bio NTech 30mcg/0.3mL) PF, MDV 12/24/2020,06/12/2020,05/22/2020 Influenza, High-dose [...] Yes Alcohol Use Standard Drinks/Week Comments Yes 2 (1 standard drink = 0.6 oz pur e alcohol) 2-3 beers per week PHQ-2 Answer Date Recorded [...] on file 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 Gender Identity Not on file Sexual Orientation Not on file Obstetrics History Last Filed Vital Signs Vital Sign Reading Time Taken Comments Blood Pressure 128/60 11/16/2024 10:28 AM CDT Pulse 56 11/16/2024 10:28 AM CDT Temperature 36.3 C (97.4 F) 11/16/2024 10:28 AM CDT Respiratory Rate 16 08/14/2024 5:14 PM CDT Oxygen Saturation 95% 11/16/2024 10:28 AM CDT Inhaled Oxygen Concentration - - Weight 78.6 kg (173 lb 3.2 oz) 11/16/2024 10:28 AM CDT Height 172.7 cm (5' 8) 08/12/2024 7:48 PM CDT Body Mass Index 26.33 08/12/2024 7:48 PM CDT Plan of Treatment Health Maintenance Due Date Last Done Comments RSV vaccine for adults or (1 - 1-dose 75+ series) 10/27/2018 COVID-19 vaccine series ( season) 2024 07/18/2024, 12/09/2023, 05/31/2023, Additional history [...] this topic Medical Devices Implanted Type Area Enamel Finisher Device Identifier Shelf Expiration Date Model / Serial / Lot Tissue Pericardium 0.8x8cm Xenosure - [id number] Implanted:Qty: 1 on 03/10/2020 by Isidro Smiley MD at [facility] Right: Carotid Artery [employer] 07/23/2025 0.8P8# / / [id number] Procedures Procedure Name Priority Date/Time Associated Diagnosis Comments SCAN-LABORATORY REPORT 12/17/2024 12:00 AM CDT SCAN-ULTRASOUND REPORT 10/24/2024 12:00 AM CDT SCAN-PATHOLOGY REPORT 10/23/2024 12:00 AM CDT BASIC METABOLIC PANEL Routine 10/22/2024 11:10 AM CDT Stage 3 chronic kidney disease, unspecified whether stage 3a or 3b CKD (HC) from Last 3 Months Results * SCAN-LABORATORY REPORT (12/17/2024 12:00 AM CDT) us Scanner OTHER Final Result * SCAN-ULTRASOUND REPORT (10/24/2024 12:00 AM CDT) Anatomical Region Laterality Modality Other us Scanner OTHER Final Result * SCAN-PATHOLOGY REPORT (10/23/2024 12:00 AM CDT) us Scanner OTHER Final Result * (ABNORMAL) BASIC METABOLIC PANEL (10/22/2024 11:10 AM CDT) GLUCOSE 94 65 - 99 mg/dL [facility] Comment: Fasting reference interval UREA [...] MD CHEMISTRY Final Resu lt [facility] [address] [place] [address], [facility] [address] [place] [address] from Last 3 Months Insurance MEDICARE PB [...] Comments Code Status Discussion: Discussed Care Teams Acute Care Nursing Assistant Relationship Specialty Start Date End Date Osorio Galvan MD [address] [place] [address] PCP - General Family Practice 07/20/12
--- OUTSIDE RECORDS SUMMARY | 2025-01-17 11:49 | XMS_ITS ---
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 We will proceed with medical therapy for chronic stable CAD. Hyperlipidemia 02/28/2012 Current Treatment and Therapy Plans Enfortumab vedotin-ejfv / Pembrolizumab* Plan Start Date:10/16/2024 Plan Provider:Polo Dwyer M.D. 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)Medication Therapy Heating Element Winder Not AnticoagulantLong Term Current Drug Therapy, Chemotherapy Treatment Medications Current Day (Day 1 , Cycle 5 - Planned for 01/24/2025) Next Day (Day 8, Cycle 5 - Planned for 01/31/2025) enfortumab vedotin-ejfv (Padcev)enfortumab vedotin-ejfv (Padcev) IVPBpembrolizumab (Keytruda) enfortumab vedotin-ejfv 70 mg in NaCl 0.9% 107 mL IVPB (Padcev)pembrolizumab 100 mg in NaCl 0.9% 54 mL IVPB (Keytruda) enfortumab vedotin-ejfv 70 mg in NaCl 0.9% 107 mL IVPB (Padcev) Vascular Access Patency - Peripheral Intravenous Catheter and Rapid Infusion Catheter* Plan Start Date:11/20/2024 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 Past Treatment and Therapy Plans No past plan information found.
--- OUTSIDE RECORDS SUMMARY | 2025-01-17 11:49 | XMS_ITS | Clinical Summary ---
Author Organization [facility] Address [address] [place] [address] Care Team Providers Care Traffic Enumerator Name Role Phone Elsewhere, Pcp Primary Care Provider Unavailabl e Source Comments Patient records contain information from all sites at [facility]. For routine questions regarding patient records, call [phone] during business hours, M-F 8:00 AM - 5:00 PM Central Time. Record requests for emergency care only can be directed to [phone] at any time.[facility] Allergies Active Allergy Reactions Criticality Noted Date Comments Atorvastatin Myalgia 05/06/2014 Citalopram Tinnitus 01/16/2020 Medications * This document contains information received from the source organization and may not represent a complete record from that organization. nitroglycerin (NITROSTAT) 0.[address] 0.4 mg under the tongue every 5 (five) minutes as needed for chest pain (Max 3 doses). If no relief 5 minutes after the 1st dose, seek medical attention immediately. May take up to 2 additional doses if needed. 03/19/20 20 Active finasteride (PROSCAR) 5 mg tablet Take 1 tablet (5 mg total) by mouth daily. 30 tablet 04/16/19 21 Active aspirin [address] tablet Take 1 tablet (81 mg total) by mouth daily. 90 tablet 3 07/16/19 21 Active cyanocobalamin (Vitamin B-12) 1,000 mcg/mL injection Inject 1,000 mcg intramuscularly every 30 (thirty) days. 07/06/19 25 Active OLANZapine (ZyPREXA) 2.5 mg tabletIndicati ons:Malignant [...] nausea or vomiting. 30 tablet 3 10/18/19 25 Active ondansetron (Zofran) 8 mg tabletIndicati ons:Malignant [...] (Rash, Itching). 180 mL 3 10/18/19 Active Additional Information Patient not taking.Reported on 12/28/2024 hydrOXYzine (Atarax) 25 mg tabletIndicati ons:Malignant Neoplasm Of Bladder (HCC) Take 1 tablet (25 mg total) by mouth 3 (three) times a day as needed for itching. 30 tablet 3 10/18/19 25 Active Additional Information Patient not taking.Reported on 12/28/2024 cephalexin (Keflex) 500 mg capsule 10/25/19 Active sulfamethoxazo le-trimethopri m (Bactrim DS) 800-160 mg per tablet 10/25/19 Active metoprolol succinate (Toprol XL) 25 mg 24 hr tablet Take 1 tablet (25 mg total) by mouth daily. 30 tablet 2 11/13/19 25 Active rosuvastatin (Crestor) 20 mg tablet Take 1 tablet (20 mg total) by mouth at bedtime. 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 We will proceed with medical therapy for chronic stable CAD. Hyperlipidemia 02/28/2012 Encounters * This document contains information received from the source organization and may not represent a complete record from that organization. Date Type Department Care Team Description 01/11/2025 Clinical Communication Department of Urology in [place], [place] [address] [place] [phone] Pema Rojas M.D. 01/07/2025 11:00 AM CDT Infusion Department of Oncology in [address] [address] Opal Marcano M.D. Malignant Neoplasm Of Bladder (HCC) (Primary Dx); Medication Therapy Jail Not Anticoagulant; Jail Current Drug Therapy, Chemotherapy 01/01/2025 7:30 AM CDT Infusion Department of Oncology in [address] [address] Opal Marcano M.D. Malignant Neoplasm Of Bladder (HCC) (Primary Dx); Medication Therapy College President Not Anticoagulant; Jail Current Drug Therapy, Chemotherapy 12/31/2024 4:00 PM CDT Office Visit Department of Oncology in [address] [address] Polo Dwyer M.D. Malignant Neoplasm Of Bladder (HCC) (Primary Dx); Change In Bowel Habit; Edema Lower Extremity 12/31/2024 12:10 PM CDT - 12/31/2024 11:59 PM CDT Hospital Encounter Department of Radiology, [facility], in [address] [address] Polo Dwyer M.D. Malignant Neoplasm Of Bladder (HCC) Discharge Disposition: Home or Self Care 12/31/2024 Orders Only Department of Oncology in [address] [phone] Nasir Hamilton M.D., Ph.D. 12/31/2024 Clinical Communication Division of Hematology in [address] [address] Polo Dwyer M.D. Order Request 12/28/2024 2:15 PM CDT Clinical Communication Virtual Review in [address] [phone] Previsit Preparation 12/19/2024 Results Follow-Up Department of Oncology in [address] [address] Polo Dwyer M.D. CBC, Chemotherapy, No Alerts, Comprehensive Metabolic Panel 12/18/2024 10:19 AM CDT - 12/18/2024 11:59 PM CDT Hospital Encounter Department of Radiology, [facility], in [address] [phone] Yaritza Nance APRN, C.N.P., M.S.N. Swelling Leg Left Discharge Disposition: Home or Self Care 12/17/2024 3:00 PM CDT Infusion Department of Oncology in [address] [address] Opal Marcano M.D. Malignant Neoplasm Of Bladder (HCC) (Primary Dx); Medication Therapy College President Not Anticoagulant; Jail Current Drug Therapy, Chemotherapy; Swelling Leg Left 12/17/2024 10:20 AM CDT Office Visit Department of Oncology in [address] [address] Yaritza Nance APRN, C.N.P., M.S.N. Swelling Leg Left (Primary Dx) 12/11/2024 8:30 AM CDT Infusion Department of Oncology in [address] [address] Opal Marcano M.D. Malignant Neoplasm Of Bladder (HCC) (Primary Dx); Medication Therapy College President Not Anticoagulant; College President Current Drug Therapy, Chemotherapy 12/11/2024 Orders Only Department of Oncology in [address] [address] Zuri Pichardo, PMakAPoly 12/10/2024 3:00 PM CDT Office Visit Division of Hematology in [address] [address] Polo Dwyer M.D. Malignant Neoplasm Of Bladder (HCC) (Primary Dx) 12/06/2024 3:45 PM CDT Clinical Communication Virtual Review in [address] [phone] Pre-visit Intake 11/27/2024 9:30 AM CDT Infusion Department of Oncology in [address] [address] Alisa Menjivar M.D. Malignant Neoplasm Of Bladder (HCC) (Primary Dx); Medication Therapy Jail Not Anticoagulant; College President Current Drug Therapy, Chemotherapy 11/23/2024 Orders Only Department of Oncology in [address] [address] Polo Dwyer M.D. 11/20/2024 3:00 PM CDT Infusion Department of Oncology in [place], [place] [address] [place] [phone] Alisa Menjivar M.D. Malignant Neoplasm Of Bladder (HCC) (Primary Dx); Medication Therapy Jail Not Anticoagulant; College President Current Drug Therapy, Chemotherapy 11/20/2024 1:30 PM CDT Office Visit Department of Oncology in [address] [phone] Alisa Menjivar M.D. Johnson, Isla M, M.D. Malignant Neoplasm Of Bladder (HCC) (Primary Dx) 11/20/2024 8:00 AM CDT Clinical Support Department of Oncology in [address] [address] Polo Dwyer M.D. China Parikh, M.S.W., L.I.C.S.W. Malignant Neoplasm Of Bladder (HCC); Counseling Phase Of Life Problem 11/20/2024 Orders Only Department of Oncology in [address] [address] Nasir Hamilton M.D., Ph.D. 11/19/2024 Clinical Communication Division of Hematology in [address] [address] Polo Dwyer M.D. 12/10 OV 11/19/2024 Orders Only Department of Oncology in [address] [address] Opal Marcano M.D. Malignant Neoplasm Of Bladder (HCC) (Primary Dx); Medication Therapy College President Not Anticoagulant; College President Current Drug Therapy, Chemotherapy 11/12/2024 2:15 PM CDT Office Visit Department of Cardiovascular Medicine in [address] [address] Elisa Alva M.D. Malignant Neoplasm Of Bladder (HCC) (Primary Dx); Other College President Current Drug Therapy; Mass Bladder; Atherosclerotic Heart Disease Of Ute Coronary Artery Without Angina Pectoris; Atherosclerotic Heart Disease Ute Coronary Artery With Other Forms Angina Pectoris (Stable Angina/Angina Of Exertion) 11/12/2024 9:30 AM CDT - 11/12/2024 11:59 PM CDT Hospital Encounter Department of Radiology, [facility], in [place], [place] [address] [place] [phone] Alisa Menjivar M.D. Malignant Neoplasm Of Bladder (HCC); Swelling Leg Left Discharge Disposition: Home or Self Care 11/07/2024 1:00 PM CDT Infusion Department of Oncology in [place], [place] [address] [place] [phone] Alisa Menjivar M.D. Malignant Neoplasm Of Bladder (HCC) (Primary Dx); Medication Therapy Jail Not Anticoagulant; College President Current Drug Therapy, Chemotherapy 11/07/2024 Orders Only Department of Oncology in [address] [address] Alisa Menjivar M.D. Malignant Neoplasm Of Bladder (HCC) (Primary Dx); Swelling Leg Left 11/07/2024 Clinical Communication Division of Hematology in [address] [address] Polo Dwyer M.D. Order Request 11/02/2024 Results Follow-Up Department of Oncology in [address] [address] Polo Dwyer M.D. CBC with Differential, Blood, Comprehensive Metabolic Panel, Thyroid Function Kouts, Additional followed-up results: 2 11/01/2024 8:00 AM CDT Education Department of Oncology in [place], [place] [address] [place] [phone] Polo Dwyer M.D. Lubale, Paula J, R.N. Malignant Neoplasm Of Bladder (HCC) (Primary Dx) 11/01/2024 8:00 AM CDT Infusion Department of Oncology in [address] [address] Polo Dwyer M.D. Malignant Neoplasm Of Bladder (HCC) (Primary Dx); Medication Therapy Jail Not Anticoagulant; Jail Current Drug Therapy, Chemotherapy 11/01/2024 Orders Only Department of Oncology in [place], [place] [address] [place] [phone] Alisa Menjivar M.D. 10/30/2024 8:50 AM CDT - 10/30/2024 11:59 PM CDT Hospital Encounter Department of Laboratory Medicine in [address] [address] Polo Dwyer M.D. Malignant Neoplasm Of Bladder (HCC); Medication Therapy Jail Not Anticoagulant; College President Current Drug Therapy, Chemotherapy; Other Jail Current Drug Therapy Discharge Disposition: Home or Self Care 10/29/2024 Clinical Communication Division of Hematology in [place], [place] [address] [place] [phone] Polo Dwyer M.D. 11/20 OV 10/29/2024 Clinical Communication Department of Oncology in [place], [place] [address] [place] [phone] Rosa Watters, R.N. 10/26/2024 Clinical Communication Department of Oncology in [place], [place] [address] [place] [phone] Rosa Watters, R.N. 10/23/2024 Clinical Communication Department of Oncology in [place], [place] [address] [place] [phone] Alisa Menjivar M.D. Order Request 10/17/2024 1:20 PM CDT Comprehensive Visit Department of Oncology in [place], [place] [address] [place] [phone] Alisa Menjivar M.D. Malignant Neoplasm Of Bladder (HCC) (Primary Dx); Other Jail Current Drug Therapy; Medication Therapy Jail Not Anticoagulant; Jail Current Drug Therapy, Chemotherapy 10/17/2024 9:21 AM CDT - 10/17/2024 11:59 PM CDT Hospital Encounter Department of Laboratory Medicine and Pathology, [facility] in [place], [place] [address] [place] [address] Shyam Musa M.D. Mass Bladder Discharge Disposition: Home or Self Care 10/17/2024 8:30 AM CDT Comprehensive Visit Department of Urology in [place], [place] [address] [place] [address] Pema Rojas M.D. Malignant Neoplasm Of Bladder (HCC) (Primary Dx) from Last 3 Months Immunizations Immunization Administration Dates Next Due Influenza, Unspecified 01/02/2013 Social History Tobacco Use Types Packs/Day Years Used Date Smoking Tobacco: Former Smokeless Tobacco: Never Alcohol Use Standard Drinks/Week Comments Yes 3 (1 standard drink = 0.6 oz pur e alcohol) [facility] Utilities Answer Date Recorded In the past 12 months has e [employer], gas, oil, or water [employer] threatened to shut off services in your [...] I have a cari place to live 10/09/2024 Education Answer Date Recorded What is the highest level of school you have completed or the highest degree you have received? 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, [employer], BERTA) 05/11/2020 Sex and Gender Information Value Date Recorded Sex Assigned at Male 09/04/2024 9:32 AM CDT Legal Sex Male 5:45 PM HEEL COVER SPLITTER Gender Identity Male 09/04/2024 9:32 AM CDT Sexual Orientation Straight 09/04/2024 9: 32 AM CDT Last Filed Vital Signs Vital Sign Reading Time Taken Comments Blood Pressure 113/60 01/07/2025 10:50 AM CDT Pulse 52 01/07/2025 10:50 AM CDT Temperature 36.5 C (97.7 F) 01/07/2025 10:50 AM CDT Respiratory Rate 17 12/31/2024 3:49 PM CDT Oxygen Saturation 97% 12/31/2024 3:49 PM CDT Inhaled Oxygen Concentration - - Weight 78.8 kg (173 lb 11.6 oz) 025 10:50 AM CDT Height 166.8 cm (5' 5.67) 12/10/2024 2:47 PM CD T Body Mass Index 28.32 12/10/2024 2:47 PM CDT Plan of Treatment Upcoming Encounters Date Type Department Care Team (Late st Contact Info) Description 01/18/2025 2:45 PM CDT Clinical Communication Virtual Review in [place], [place] 200 [place] [phone] 01/21/2025 11:30 AM CDT Lab Department of Laboratory Medicine and Pathology, [facility], in [place], [place] [address] [place] [phone] Opal Marcano M.D. [address] [place] [phone] 01/21/2025 1:30 PM CDT Office Visit Division of Hematology in [place], [place] [address] [place] [phone] Polo Dwyer M.D. [address] [place] [address] 01/21/2025 2:30 PM CDT Infusion Department of Oncology in [place], [place] [address] [place] [address] Opal Marcano M.D. [address] [place] [phone] 01/28/2025 9:00 AM HEEL COVER SPLITTER Lab Department of Laboratory Medicine and Pathology, [facility], in [place], [place] [address] [place] [phone] Opal Marcano M.D. [address] [place] [phone] 01/28/2025 11:00 AM HEEL COVER SPLITTER Infusion Department of Oncology in [place], [place] [address] [place] [address] Opal Marcano M.D. [address] [place] [phone] 04/03/2025 3:00 PM HEEL COVER SPLITTER Office Visit Department of Urology in [place], [place] [address] [place] [phone] Pema Rojas M.D. [address] [place] [phone] Health Maintenance Due Date Last Done Comments Office Visit for Blood Pressure Check / Re-check 1943 RSV vaccine - (32-36 weeks) or 50+ years (1 - 1-dose 75+ series) 10/27/2018 Depression Screening (Annual PHQ-2) 03/28/2024 Fall Risk Screen (Annual) 03/28/2024 COVID-19 Vaccine (2024- season) 2024 07/18/2024, 12/09/2023, 05/31/2023, Additional history exists Influenza Vaccine (#1) 2024 , 01/11/2023, 12/28/2021, Additional history exists Glucose Test for Med Monitoring 01/07/2026 01/07/2025, 12/31/2024, 12/17/2024, Additional history exists DTaP,Tdap,and Td Vaccines (3 - Td or Tdap) 04/10/2032 04/10/2022, 07/28/2012 Pneumococcal vaccine (50+ years) Completed 03/27/2018, 05/24/2016 Zoster Vaccines Completed 07/05/2018, 04/19/2018 Abdominal Aortic Aneurysm (AAA) Screen Discontinued 04/11/2020 IPV Vaccines Aged Out No longer eligi ble based on patient's age to complete this topic Procedures Procedure Name Priority Date/Time Associated Diagnosis Comments COMPREHENSIVE METABOLIC PANEL, S/P Routine 01/07/2025 8:47 AM CDT Malignant Neoplasm Of Bladder (HCC) Medication Therapy Jail Not Anticoagulant College President Current Drug Therapy, Chemotherapy CBC CHEMO - NO ALERTS Routine 01/07/2025 8:47 AM CDT Malignant Neoplasm Of Bladder (HCC) Medication Therapy Jail Not Anticoagulant College President Current Drug Therapy, Chemotherapy COMPREHENSIVE METABOLIC PANEL, S/P Routine 12/31/2024 2:39 PM CDT Malignant Neoplasm Of Bladder (HCC) Medication Therapy College President Not Anticoagulant Jail Current Drug Therapy, Chemotherapy CBC WITH DIFFERENTIAL, B Routine 12/31/2024 2:39 PM CDT Malignant Neoplasm Of Bladder (HCC) Medication Therapy College President Not Anticoagulant Jail Current Drug Therapy, Chemotherapy CT CHEST WITH IV CONTRAST RAD - Routine (most inpatients and all outpatients) 12/31/2024 1:12 PM CDT Malignant Neoplasm Of Bladder (HCC) CT UROGRAM WITHOUT AND WITH IV CONTRAST RAD - Routine (most inpatients and all outpatients) 12/31/2024 1:12 PM CDT Malignant Neoplasm Of Bladder (HCC) US LOWER EXTREMITY VEINS LEFT RAD - Routine (most inpatients and all outpatients) 12/18/2024 11:20 AM CDT Swelling Leg Left COMPREHENSIVE METABOLIC PANEL, S/P Routine 12/17/2024 12:50 PM CDT Malignant Neoplasm Of Bladder (HCC) Medication Therapy Jail Not Anticoagulant College President Current Drug Therapy, Chemotherapy CBC CHEMO - NO ALERTS Routine 12/17/2024 12:50 PM CDT Malignant Neoplasm Of Bladder (HCC) Medication Therapy College President Not Anticoagulant Jail Current Drug Therapy, Chemotherapy THYROID FUNCTION CASCADE, S Routine 12/10/2024 12:49 PM CDT Malignant Neoplasm Of Bladder (HCC) Medication Therapy College President Not Anticoagulant Jail Current Drug Therapy, Chemotherapy COMPREHENSIVE METABOLIC PANEL, S/P Routine 12/10/2024 12:49 PM CDT Malignant Neoplasm Of Bladder (HCC) Medication Therapy Jail Not Anticoagulant Jail Current Drug Therapy, Chemotherapy CBC WITH DIFFERENTIAL, B Routine 12/10/2024 12:49 PM CDT Malignant Neoplasm Of Bladder (HCC) Medication Therapy College President Not Anticoagulant Jail Current Drug Therapy, Chemotherapy COMPREHENSIVE METABOLIC PANEL, S/P Routine 11/27/2024 8:01 AM CDT Malignant Neoplasm Of Bladder (HCC) Medication Therapy Jail Not Anticoagulant Jail Current Drug Therapy, Chemotherapy CBC CHEMO - NO ALERTS Routine 11/27/2024 8:01 AM CDT Malignant Neoplasm Of Bladder (HCC) Medication Therapy College President Not Anticoagulant Jail Current Drug Therapy, Chemotherapy COMPREHENSIVE METABOLIC PANEL, S/P Routine 11/20/2024 10:57 AM CDT Malignant Neoplasm Of Bladder (HCC) Medication Therapy College President Not Anticoagulant Jail Current Drug Therapy, Chemotherapy CBC WITH DIFFERENTIAL, B Routine 11/20/2024 10:57 AM CDT Malignant Neoplasm Of Bladder (HCC) Medication Therapy Jail Not Anticoagulant Jail Current Drug Therapy, Chemotherapy US LOWER EXTREMITY VEINS LEFT RAD - Routine (most inpatients and all outpatients) 11/12/2024 10:34 AM CDT Malignant Neoplasm Of Bladder (HCC) Swelling Leg Left COMPREHENSIVE METABOLIC PANEL, S/P Routine 11/07/2024 11:20 AM CDT Malignant Neoplasm Of Bladder (HCC) Medication Therapy Jail Not Anticoagulant Jail Current Drug Therapy, Chemotherapy CBC CHEMO - NO ALERTS Routine 11/07/2024 11:20 AM CDT Malignant Neoplasm Of Bladder (HCC) Medication Therapy College President Not Anticoagulant Jail Current Drug Therapy, Chemotherapy THYROID FUNCTION CASCADE, S Routine 10/30/2024 9:03 AM CDT Malignant Neoplasm Of Bladder (HCC) Other Jail Current Drug Therapy COMPREHENSIVE METABOLIC PANEL, S/P Routine 10/30/2024 9:03 AM CDT Malignant Neoplasm Of Bladder (HCC) Medication Therapy Jail Not Anticoagulant College President Current Drug Therapy, Chemotherapy CBC WITH DIFFERENTIAL, B Routine 10/30/2024 9:03 AM CDT Malignant Neoplasm Of Bladder (HCC) Medication Therapy Jail Not Anticoagulant Jail Current Drug Therapy, Chemotherapy CBC WITH DIFFERENTIAL, B Routine 10/17/2024 9:48 AM CDT Mass Bladder COMPREHENSIVE METABOLIC PANEL, S/P Routine 10/17/2024 9:48 AM CDT Mass Bladder CT ABDOMEN PELVIS WITH IV CONTRAST RAD - Semiurgent (Fast; most ED patients; some inpatients) 04/11/2020 9:32 PM HEEL COVER SPLITTER from Last 3 Months or Most Recently Relevant to Health Maintenance Results * (ABNORMAL) CBC, Chemotherapy, No Alerts (01/07/2025 8:47 AM CDT) Only the most recent of4 resultswithin the time period is included. Hemoglobin 11.0(L) 13.2 - 16.6 g/dL 01/07/2025 9:05 AM CDT [facility] Platelet Count 231 135 - 317 x10(9)/L 01/07/2025 9:05 AM CDT [facility] Leukocytes 6.8 3.4 - 9.6 x10(9)/L 01/07/2025 9:05 AM CDT METH Neutrophils 3.37 1.56 - 6.45 x10(9)/L 01/07/2025 9:05 AM CDT [facility] Blood (Blood, Venous) 01/07/2025 8:47 AM CDT 01/07/2025 9:03 AM CDT us Opal Marcano M.D. LAB BLOOD ADD-ON Final Resul t [facility] [address] [place] [address], [place] METH [facility] [address] [place] [address] DHPM [facility] [address] [place] [address] * (ABNORMAL) Comprehensive Metabolic Panel (01/07/2025 8:47 AM CDT) Only the most recent of9 resultswithin the time period is included. Pathologist [facility] Potassium, S 4.6 3.6 - 5.2 mmol/L 01/07/2025 10:41 AM CDT DTL Sodium, S 139 135 - 145 mmol/L 01/07/2025 10:41 AM CDT DTL Chloride, S 103 98 - 107 mmol/L 01/07/2025 10:41 AM CDT DTL Bicarbonate, S 27 22 - 29 mmol/L 01/07/2025 10:41 AM CDT DTL Anion Gap 9 7 - 15 01/07/2025 10:41 AM CDT DTL BUN (Blood Urea Nitrogen), S 20 8 - 24 mg/dL 01/07/2025 10:41 AM CDT DTL Creatinine 1.42(H) 0.74 - 1.35 mg/dL 01/07/2025 10:41 AM CDT DTL Estimated GFR (eGFR) 50(L) >=60 mL/min/BS A 01/07/2025 10:41 AM CDT DTL Comment: Estimated GFR calculated using the 2020 CKD_EPI creatinine equation. Calcium, Total, S 8.9 8.8 - 10.2 mg/dL 01/07/2025 10:41 AM CDT DTL Glucose, S 102 70 - 140 mg/dL 01/07/2025 10:41 AM CDT DTL Protein, Total, S 6.8 6.3 - 7.9 g/dL 01/07/2025 10:41 AM CDT DTL Albumin, S 3.9 3.5 - 5.0 g/dL 01/07/2025 10:41 AM CDT DTL Aspartate Aminotransferase (AST), S 23 8 - 48 U/L 01/07/2025 10:41 AM CDT DTL Alkaline Phosphatase, S 84 40 - 129 U/L 01/07/2025 10:41 AM CDT DTL Alanine Aminotransferase (ALT), S 10 7 - 55 U/L 01/07/2025 10:41 AM CDT DTL Bilirubin, Total, S 0.4 0.0 - 1.2 mg/dL 01/07/2025 10:41 AM CDT DTL Blood (Blood, Venous) 01/07/2025 8:47 AM CDT 01/07/2025 9:17 AM CDT us Opal Marcano M.D. LAB BLOOD ADD-ON Final Resul t [address] [address], [facility] [address] [place] [address] * (ABNORMAL) CBC with Differential, Blood (12/31/2024 2:39 PM CDT) Only the most recent of5 resultswithin the time period is included. Hemoglobin 10.5(L) 13.2 - 16.6 g/dL 12/31/2024 2:59 PM CDT DTL Hematocrit 31.6(L) 38.3 - 48.6 % 12/31/2024 2:59 PM CDT DTL Erythrocytes 3.16(L) 4.35 - 5.65 x10(12)/L 12/31/2024 2:59 PM CDT DTL MCV 100.0(H) 78.2 - 97.9 fL 12/31/2024 2:59 PM CDT DTL RBC Distrib Width 16.4(H) 11.8 - 14.5 % 12/31/2024 2:59 PM CDT DTL Platelet Count 203 135 - 317 x10(9)/L 12/31/2024 2:59 PM CDT DTL Leukocytes 6.7 3.4 - 9.6 x10(9)/L 12/31/2024 2:59 PM CDT DTL Neutrophils 3.95 1.56 - 6.45 x10(9)/L 12/31/2024 2:59 PM CDT DHPM Lymphocytes 2.22 0.95 - 3.07 x10(9)/L 12/31/2024 2:59 PM CDT DTL Monocytes 0.41 0.26 - 0.81 x10(9)/L 12/31/2024 2:59 PM CDT DTL Eosinophils 0.12 0.03 - 0.48 x10(9)/L 12/31/2024 2:59 PM CDT DTL Basophils 0.04 0.01 - 0.08 x10(9)/L 12/31/2024 2:59 PM CDT DTL Blood (Blood, Venous) 12/31/2024 2:39 PM CDT 12/31/2024 2:50 PM CDT us Opal Marcano M.D. LAB BLOOD ADD-ON Final Resul t [facility] [address] [place] [address], [facility] DTL [facility] [address] [place] [address] DHPM [facility] [address] [place] [address] * CT Urogram without and with IV [...] disease in the abdomenor pelvis. us Polo LUIS CT PROCEDURES Final Result * CT Chest with IV Contrast (12/31/2024 [...] Stable chest CT. us Polo Dwyer M.D. IMG CT PROCEDURES Final Result * US Lower Extremity Veins Left (12/18/2024 11:20 AM CDT) Only the most recent of2 resultswithin the time period is included. Anatomical Region Laterality Modality Lower Extremity, Ultrasound [...] and management can be found on the [employer] site. Link [email or web address] Procedure Note Wilian Bone M.D. - 12/18/2024 [...] thrombosis and management can be found on [email or web address] site. [email or web address] IMPRESSION: Negative for acute DVT. Yaritza Nance APRN, C.N.P., M.S.N. IMG US P ROCEDURES Final Result * Thyroid Function Kouts (12/10/2024 12:49 PM CDT) Only the most recent of2 resultswithin the time period is included. TSH, Sensitive 0.7 0.3 - 4.2 mIU/L 12/10/2024 2:00 PM CDT DTL Blood (Blood, Venous) 12/10/2024 12:49 PM CDT 12/10/2024 12:55 PM CDT Opal Marcano M.D. LAB BLOOD ADD-ON Final Resul t [facility] [address] [address], [facility] [place] [place] [address] * CT Abdomen Pelvis with IV Contrast (04/11/2020 9:32 PM HEEL COVER SPLITTER) Anatomical Region Laterality Modality Abdomen, Pelvis, Abdominal R ST LOS, Abdominal ARZ LOS, Abdominal FLA LOS N/A Computed Tomograp hy, Computed Tomography 04/11/2020 9:41 PM HEEL COVER SPLITTER Impressions 04/11/2020 10:07 PM HEEL COVER SPLITTER 1. No evidence of recent or active hemorrhage within the abdomen or pelvis. 2. Bladder wall thickening and adjacent stranding and mild ureterectasis and periureteral stranding of the lower ureters is nonspecific but can be seen in the setting of cystitis with early ascending infection. 3. Acute pulmonary embolism in the left lower lobe. Narrative 04/11/2020 10:07 PM HEEL COVER SPLITTER EXAM: CT ABDOMEN PELVIS WITH IV CONTRAST [...] lung. Findings were discussed with Dr. Fritz ([id number]) at 10:06 PM on 04/11/2020.. Procedure Note Bold, Spencer Palmer M.D. - 04/11/2020 EXAM: CT [...] lowerlung. Findings were discussed with Dr. Fritz ([id number]) at 10:06 PM on04/11/2020.. IMPRESSION: 1. No [...] Onset Date Last Indicated Protective Environment 11/01/2024 5 Insurance MEDICARE [facility] Advance Directives For more information, please contact: [phone] * Full Code (Latest Code Status on File) Date Activated Date Inactivated Comments 10/09/2024 9:06 PM 10/12/2024 6:11 PM Question Answer Comments Full Code: Discussed * Full Code Date Activated Date Inactivated Comments 04/12/2020 1:07 PM 04/15/2020 6:07 PM Question Answer Comments Full Code: Discussed 04/12/2020 Care Teams Traffic Enumerator Relationship Specialty Start Date End Date Elsewhere, Pcp PCP - General Internal Medicine 10/09/24
--- OUTSIDE RECORDS SUMMARY | 2025-01-17 11:50 | XMS_ITS | Encounter Summary ---
Author Organization [facility] Address [address] [place] [address] Care Team Providers Care Director Of Business Systems Name Role Phone Elsewhere, Pcp Primary Care Provider Unavailabl e Encounter Details Date Type Department Care Team (Late st Contact Info) Description 01/11/2025 Clinical Communication Department of Urology in [place], [place] [address] [place] [address] Pema Rojas M.D. 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 [address] [place] [phone] 01/21/2025 1:30 PM CDT Office Visit Division of Hematology in [place], [place] [address] [place] [address] Polo Dwyer M.D. [address] [place] [phone] 01/21/2025 2:30 PM CDT Infusion Department of Oncology in [place], [place] [address] [place] [phone] Opal Marcano M.D. [address] [place] [phone] 01/28/2025 9:00 AM STOCK PLAN ADMINISTRATOR Lab Department of Laboratory Medicine and Pathology, [facility] in [place], [place] [address] [place] [phone] Opal Marcano M.D. [address] [place] [phone] 01/28/2025 11:00 AM STOCK PLAN ADMINISTRATOR Infusion Department of Oncology in [place], [place] [address] [place] [address] Opal Marcano M.D. [address] [place] [phone] 04/03/2025 3:00 PM STOCK PLAN ADMINISTRATOR Office Visit Department of Urology in [place], [place] [address] [place] [phone] Pema Rojas M.D. [address] [place] [phone] documented as of this encounter Visit Diagnoses Not on filedocumented in this encounter Additional Health Concerns Infection Onset Date Last Indicated Resolved Time Protective Environment 11/01/2024 11/01/2024 documented as of this encounter Care Teams Director Of Business Systems Relationship Specialty Start Date End Date Elsewhere, Pcp PCP - General Internal Medicine 10/09/24 documented as of this encounter
--- OUTSIDE RECORDS SUMMARY | 2025-01-17 11:51 | XMS_ITS | Encounter Summary ---
Author Organization [facility] Address [address] [place] [address] Care Team Providers Care Body Wirer Name Role Phone Elsewhere, Pcp Primary Care Provider Unavailabl e Encounter Details Date Type Department Care Team (Late st Contact Info) Description 11/20/2024 Orders Only Department of Oncology in [place], [place] [address] [place] [phone] Nasir Hamilton M.D., Ph.D. [address] [place] [phone] Social History Tobacco Use Types Packs/Day Years Used Date Smoking Tobacco: Former Smokeless Tobacco: Never Alcohol Use Standard Drinks/Week Comments Yes 3 (1 standard drink = 0.6 oz pur e alcohol) [facility] Utilities Answer Date Recorded In the past 12 months has [facility] [employer], gas, oil, or water [employer] threatened to shut off services in your [...] your living situation today? I have a [facility] place to live 10/09/2024 Education Answer Date Recorded What is the highest level of school you have completed or the highest degree you have received? 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 [address] [place] [phone] 01/21/2025 1:30 PM CDT Office Visit Division of Hematology in [place], [place] [address] [place] [address] Polo Dwyer M.D. [address] [place] [phone] 01/21/2025 2:30 PM CDT Infusion Department of Oncology in [place], [place] [address] [place] [phone] Opal Marcano M.D. [address] [place] [phone] 01/28/2025 9:00 AM TELEMETRY NURSE Lab Department of Laboratory Medicine and Pathology, [facility] in [place], [place] [address] [place] [phone] Opal Marcano M.D. [address] [place] [phone] 01/28/2025 11:00 AM TELEMETRY NURSE Infusion Department of Oncology in [place], [place] [address] [place] [address] Opal Marcano M.D. [address] [place] [phone] 04/03/2025 3:00 PM TELEMETRY NURSE Office Visit Department of Urology in [place], [place] [address] [place] [phone] Pema Rojas M.D. [address] [place] [phone] documented as of this encounter Visit Diagnoses Not on filedocumented in this encounter Additional Health Concerns Infection Onset Date Last Indicated Resolved Time Protective Environment 11/01/2024 11/01/2024 documented as of this encounter Care Teams Body Wirer Relationship Specialty Start Date End Date Elsewhere, Pcp PCP - General Internal Medicine 10/09/24 documented as of this encounter
--- OUTSIDE RECORDS SUMMARY | 2025-01-17 11:52 | XMS_ITS | Encounter Summary ---
Author Organization [facility] Address [address] [place] [address] Care Team Providers Care Skin Carver Name Role Phone Elsewhere, Pcp Primary Care Provider Unavailabl e Reason for Visit * Reason Onset Date Comments Order Request 12/31/2024 Encounter Details Date Type Department Care Team ([facility] st Contact Info) Description 12/31/2024 Clinical Communication Division of Hematology in [place], [place] [address] [place] [phone] Polo Dwyer M.D. [address] [place] [phone] Order Request Social History Tobacco Use Types Packs/Day Years Used Date Smoking Tobacco: Former Smokeless Tobacco: Never Alcohol Use Standard Drinks/Week Comments Yes 3 (1 standard drink = 0.6 oz pur e alcohol) [facility] Utilities Answer Date Recorded In the past 12 months has [facility] [employer], gas, oil, or water [employer] threatened to shut off services in your [...] 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, SPICE MIXER, BERTA) 05/11/2020 Sex and Gender Information Value Date Recorded Sex Assigned at Male 09/04/2024 9:32 AM CDT Legal Sex Male 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 [address] [place] [phone] 01/21/2025 1:30 PM CDT Office Visit Division of Hematology in [place], [place] [address] [place] [address] Polo Dwyer M.D. [address] [place] [phone] 01/21/2025 2:30 PM CDT Infusion Department of Oncology in [place], [place] [address] [place] [phone] Opal Marcano M.D. [address] [place] [phone] 01/28/2025 9:00 AM CUSTOMER SPECIALIST Lab Department of Laboratory Medicine and Pathology, [facility] in [place], [place] [address] [place] [phone] Opal Marcano M.D. [address] [place] [phone] 01/28/2025 11:00 AM CUSTOMER SPECIALIST Infusion Department of Oncology in [place], [place] [address] [place] [phone] Opal Marcano M.D. [address] [place] [phone] 04/03/2025 3:00 PM CUSTOMER SPECIALIST Office Visit Department of Urology in [place], [place] [address] [place] [phone] Pema Rojas M.D. [address] [place] [phone] documented as of this encounter Visit Diagnoses Not on filedocumented in this encounter Additional Health Concerns Infection Onset Date Last Indicated Resolved Time Protective Environment 11/01/2024 11/01/2024 documented as of this encounter Care Teams Skin Carver Relationship Specialty Start Date End Date Elsewhere, Pcp PCP - General Internal Medicine 10/09/24 documented as of this encounter
--- OUTSIDE RECORDS SUMMARY | 2025-01-17 11:52 | XMS_ITS | Encounter Summary ---
Author Organization [facility] Address [address] [place] [address] Care Team Providers Care Sapphire Stylus Grinder Name Role Phone Elsewhere, Pcp Primary Care Provider Unavailabl e Reason for Visit * Reason Onset Date Comments 12/10 OV 11/19/2024 Encounter Details Date Type Department Care Team (Late st Contact Info) Description 11/19/2024 Clinical Communication Division of Hematology in [place], [place] [address] [place] [phone] Polo Dwyer M.D. [address] [place] [phone] 12/10 OV Social History Tobacco Use Types Packs/Day Years Used Date Smoking Tobacco: Former Smokeless Tobacco: Never Alcohol Use Standard Drinks/Week Comments Yes 3 (1 standard drink = 0.6 oz pur e alcohol) [facility] Utilities Answer Date Recorded In the past 12 months has [facility] [employer], gas, oil, or water [employer] threatened to shut off services in your [...] 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, INSPECTOR WATCH TRAIN, BERTA) 05/11/2020 Sex and Gender Information Value Date Recorded Sex Assigned at Male 09/04/2024 9:32 AM CDT Legal Sex Male 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 [address] [place] [phone] 01/21/2025 1:30 PM CDT Office Visit Division of Hematology in [place], [place] [address] [place] [phone] Polo Dwyer M.D. [address] [place] [phone] 01/21/2025 2:30 PM CDT Infusion Department of Oncology in [place], [place] [address] [place] [phone] Opal Marcano M.D. [address] [place] [phone] 01/28/2025 9:00 AM FOOTWEAR SALES LEADER Lab Department of Laboratory Medicine and Pathology, [facility] in [place], [place] [address] [place] [phone] Opal Marcano M.D. [address] [place] [phone] 01/28/2025 11:00 AM FOOTWEAR SALES LEADER Infusion Department of Oncology in [place], [place] [address] [place] [phone] Opal Marcano M.D. [address] [place] [phone] 04/03/2025 3:00 PM FOOTWEAR SALES LEADER Office Visit Department of Urology in [place], [place] [address] [place] [phone] Pema Rojas M.D. [address] [place] [phone] documented as of this encounter Visit Diagnoses Not on filedocumented in this encounter Additional Health Concerns Infection Onset Date Last Indicated Resolved Time Protective Environment 11/01/2024 11/01/2024 documented as of this encounter Care Teams Sapphire Stylus Grinder Relationship Specialty Start Date End Date Elsewhere, Pcp PCP - General Internal Medicine 10/09/24 documented as of this encounter
--- OUTSIDE RECORDS SUMMARY | 2025-01-17 11:52 | XMS_ITS | Encounter Summary ---
Author Organization [facility] Address [address] [place] [address] Care Team Providers Care Dice Dealer Name Role Phone Elsewhere, Pcp Primary Care Provider Unavailabl e Reason for Referral * Outpatient (Routine) Specialty Diagnoses / Procedures Referred By Keiko latif Referred To Contact Oncology Diagnoses Malignant Neoplasm Of Bladder (HCC) Medication Therapy Greenhouse Assistant Not Anticoagulant Alf Current Drug Therapy, Chemotherapy Opal Marcano M.D. [address] [place] [address] Phone: tel: fax: [facility] Referral ID Status Reason Start Date Expiration Date Visits Re quested Visits Authorized * Outpatient (Routine) Specialty Diagnoses / Procedures Referred By Keiko latif Referred To Contact Oncology Diagnoses Malignant Neoplasm Of Bladder (HCC) Medication Therapy Greenhouse Assistant Not Anticoagulant Alf Current Drug Therapy, Chemotherapy Opal Marcano M.D. [address] [place] [address] Phone: tel: fax: [facility] Referral ID Status Reason Start Date Expiration Date Visits Re quested Visits Authorized * Outpatient (Routine) Specialty Diagnoses / Procedures Referred By Keiko latif Referred To Contact Oncology Diagnoses Malignant Neoplasm Of Bladder (HCC) Medication Therapy Alf Not Anticoagulant Alf Current Drug Therapy, Chemotherapy Opal Marcano M.D. [address] [place] [address] Phone: tel: fax: [facility] Referral ID Status Reason Start Date Expiration Date Visits Re quested Visits Authorized Encounter Details Date Type Department Care Team (Late st Contact Info) Description 11/19/2024 Orders Only Department of Oncology in [place], [place] [address] [place] [phone] Opal Marcano M.D. [address] [place] [phone] Malignant Neoplasm Of Bladder (HCC) (Primary Dx); Medication Therapy Alf Not Anticoagulant; Greenhouse Assistant Current Drug Therapy, Chemotherapy Social History Tobacco Use Types Packs/Day Years Used Date Smoking Tobacco: Former Smokeless Tobacco: Never Alcohol Use Standard Drinks/Week Comments Yes 3 (1 standard drink = 0.6 oz pur e alcohol) [facility] Utilities Answer Date Recorded In the past 12 months has [facility] [employer], gas, oil, or water [employer] threatened to shut off services in your [...] the money to buy more. Never true 07/15/20 25 Within the past 12 months, t [...] your living situation today? I have a [facility] place to live 10/09/2024 Education Answer Date Recorded What is the highest level of school you have completed or the highest degree you have received? 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 [address] [place] [phone] 01/21/2025 1:30 PM CDT Office Visit Division of Hematology in [address] [phone] Polo Dwyer M.D. [address] [place] [phone] 01/21/2025 2:30 PM CDT Infusion Department of Oncology in [place], [place] [address] [place] [phone] Opal Marcano M.D. [address] [place] [phone] 01/28/2025 9:00 AM FARM EQUIPMENT ENGINEER Lab Department of Laboratory Medicine and Pathology, [facility] in [place], [place] [address] [place] [phone] Opal Marcano M.D. [address] [place] [phone] 01/28/2025 11:00 AM FARM EQUIPMENT ENGINEER Infusion Department of Oncology in [place], [place] [address] [place] [phone] Opal Marcano M.D. [address] [place] [phone] 04/03/2025 3:00 PM FARM EQUIPMENT ENGINEER Office Visit Department of Urology in [place], [place] [address] [place] [phone] Pema Rojas M.D. [address] [place] [phone] Scheduled Orders Name Type Priority Associated Diagnoses Orde r Schedule CBC with Differential, Blood Lab Routine Malignant Neoplasm Of Bladder (HCC) Medication Therapy Alf Not Anticoagulant Greenhouse Assistant Current Drug Therapy, Chemotherapy Expected: 01/24/2025, Expires: 01/25/2028 Comprehensive Metabolic Panel Lab Routine Malignant Neoplasm Of Bladder (HCC) Medication Therapy Greenhouse Assistant Not Anticoagulant Greenhouse Assistant Current Drug Therapy, Chemotherapy Expected: 01/24/2025, Expires: 01/24/2026 Thyroid Function [place] Lab Routine Malignant Neoplasm Of Bladder (HCC) Medication Therapy Alf Not Anticoagulant Greenhouse Assistant Current Drug Therapy, Chemotherapy Expected: 01/24/2025, Expires: 01/24/2026 CBC, Chemotherapy, No Alerts Lab Routine Malignant Neoplasm Of Bladder (HCC) Medication Therapy Greenhouse Assistant Not Anticoagulant Greenhouse Assistant Current Drug Therapy, Chemotherapy Expected: 01/31/2025, Expires: 01/31/2026 Comprehensive Metabolic Panel Lab Routine Malignant Neoplasm Of Bladder (HCC) Medication Therapy Alf Not Anticoagulant Greenhouse Assistant Current Drug Therapy, Chemotherapy Expected: 01/31/2025, Expires: 01/31/2026 Scheduled Referrals Name Type Priority Associated Diagnoses Orde r Schedule Oncology office visit (clinic) Outpatient Referral Routine Malignant Neoplasm Of Bladder (HCC) Medication Therapy Greenhouse Assistant Not Anticoagulant Alf Current Drug Therapy, Chemotherapy Expected: 12/13/2024, Expires: 03/15/2026 Oncology office visit (clinic) Outpatient Referral Routine Malignant Neoplasm Of Bladder (HCC) Medication Therapy Alf Not Anticoagulant Alf Current Drug Therapy, Chemotherapy Expected: 01/03/2025, Expires: 04/05/2026 Oncology office visit (clinic) Outpatient Referral Routine Malignant Neoplasm Of Bladder (HCC) Medication Therapy Alf Not Anticoagulant Alf Current Drug Therapy, Chemotherapy Expected: 01/24/2025, Expires: 04/26/2026 documented as of this encounter Results * (ABNORMAL) Comprehensive Metabolic Panel (01/07/2025 8:47 AM CDT) [facility] Potassium, S 4.6 3.6 - [...] M.D. LAB BLOOD ADD-ON Final Resul t [address] [address], [facility] [place] [place] [address] * (ABNORMAL) CBC, Chemotherapy, No Alerts (01/07/2025 8:47 AM CDT) Hemoglobin 11.0(L) 13.2 - 16.6 g/dL 01/07/2025 9:05 AM CDT [facility] Platelet Count 231 135 - 317 x10(9)/L 01/07/2025 9:05 AM CDT [facility] Leukocytes 6.8 3.4 - 9.6 x10(9)/L 01/07/2025 9:05 AM CDT [facility] Neutrophils 3.37 1.56 - 6.45 x10(9)/L 01/07/2025 9:05 AM CDT [facility] Blood (Blood, Venous) 01/07/2025 8:47 AM CDT 01/07/2025 9:03 AM CDT us Opal Marcano M.D. LAB BLOOD ADD-ON Final Resul t [facility] [address] [place] [address], [place] METH [facility] [address] [place] [address] [facility] [address] [place] [address] * (ABNORMAL) Comprehensive Metabolic Panel (12/31/2024 2:39 PM CDT) Pathologist [facility] Potassium, S 4.2 3.6 - 5.2 mmol/L 12/31/2024 3:41 PM CDT DTL Sodium, S 138 135 - 145 mmol/L 12/31/2024 3:41 PM CDT DTL Chloride, S 104 98 - 107 mmol/L 12/31/2024 3:41 PM CDT DTL Bicarbonate, S 25 22 - 29 mmol/L 12/31/2024 3:41 PM CDT DTL Anion Gap 9 7 - 15 12/31/2024 3:41 PM CDT DTL BUN (Blood Urea Nitrogen), S 14 8 - 24 mg/dL 12/31/2024 3:41 PM CDT DTL Creatinine 1.24 0.74 - 1.35 mg/dL 12/31/2024 3:41 PM CDT DTL Estimated GFR (eGFR) 58(L) >=60 mL/min/BS A 12/31/2024 3:41 PM CDT DTL Comment: Estimated GFR calculated using the 2020 CKD_EPI creatinine equation. Calcium, Total, S 8.3(L) 8.8 - 10.2 mg/dL 12/31/2024 3:41 PM CDT DTL Glucose, S 88 70 - 140 mg/dL 12/31/2024 3:41 PM CDT DTL Protein, Total, S 6.8 6.3 - 7.9 g/dL 12/31/2024 3:41 PM CDT DTL Albumin, S 3.8 3.5 - 5.0 g/dL 12/31/2024 3:41 PM CDT DTL Aspartate Aminotransferase (AST), S 16 8 - 48 U/L 12/31/2024 3:41 PM CDT DTL Alkaline Phosphatase, S 88 40 - 129 U/L 12/31/2024 3:41 PM CDT DTL Alanine Aminotransferase (ALT), S 14 7 - 55 U/L 12/31/2024 3:41 PM CDT DTL Bilirubin, Total, S 0.4 0.0 - 1.2 mg/dL 12/31/2024 3:41 PM CDT DTL Blood (Blood, Venous) 12/31/2024 2:39 PM CDT 12/31/2024 2:49 PM CDT Opal Marcano M.D. LAB BLOOD ADD-ON Final Resul t [facility] [address] [place] [address], [facility] [address] [place] [address] * (ABNORMAL) CBC with Differential, Blood (12/31/2024 2:39 PM CDT) Hemoglobin 10.5(L) 13.2 - 16.6 g/dL 12/31/2024 [...] 2:39 PM CDT 12/31/2024 2:50 PM CDT Opal Marcano M.D. LAB BLOOD ADD-ON Final Resul t [facility] [address] [place] [address], [facility] DTL [facility] [address] [place], [place] [phone] [place] [address] [address] [place] [address] * (ABNORMAL) Comprehensive Metabolic Panel (12/17/2024 12:50 PM CDT) [facility] Potassium, S 5.0 3.6 - 5.2 mmol/L 12/17/2024 1:56 PM CDT DTL Sodium, S 139 135 - 145 mmol/L 12/17/2024 1:56 PM CDT DTL Chloride, S 104 98 - 107 mmol/L 12/17/2024 1:56 PM CDT DTL Bicarbonate, S 27 22 - 29 mmol/L 12/17/2024 1:56 PM CDT DTL Anion Gap 8 7 - 15 12/17/2024 1:56 PM CDT DTL BUN (Blood Urea Nitrogen), S 21 8 - 24 mg/dL 12/17/2024 1:56 PM CDT DTL Creatinine 1.35 0.74 - 1.35 mg/dL 12/17/2024 1:56 PM CDT DTL Estimated GFR (eGFR) 53(L) >=60 mL/min/BS A 12/17/2024 1:56 PM CDT DTL Comment: Estimated GFR calculated using the 2020 CKD_EPI creatinine equation. Calcium, Total, S 8.9 8.8 - 10.2 mg/dL 12/17/2024 1:56 PM CDT DTL Glucose, S 92 70 - 140 mg/dL 12/17/2024 1:56 PM CDT DTL Protein, Total, S 6.7 6.3 - 7.9 g/dL 12/17/2024 1:56 PM CDT DTL Albumin, S 3.7 3.5 - 5.0 g/dL 12/17/2024 1:56 PM CDT DTL Aspartate Aminotransferase (AST), S 17 8 - 48 U/L 12/17/2024 1:56 PM CDT DTL Alkaline Phosphatase, S 85 40 - 129 U/L 12/17/2024 1:56 PM CDT DTL Alanine Aminotransferase (ALT), S 12 7 - 55 U/L 12/17/2024 1:56 PM CDT DTL Bilirubin, Total, S 0.3 0.0 - 1.2 mg/dL 12/17/2024 1:56 PM CDT DTL Blood (Blood, Venous) 12/17/2024 12:50 PM CDT 12/17/2024 12:57 PM CDT Opal Marcano M.D. LAB BLOOD ADD-ON Final Resul t [facility] [address] [place] [address], [facility] DTL [facility] [address] [place] [address] * (ABNORMAL) CBC, Chemotherapy, No Alerts (12/17/2024 12:50 PM CDT) Hemoglobin 10.2(L) 13.2 - 16.6 g/dL 12/17/2024 12:57 PM CDT M[facility] Platelet Count 275 135 - 317 x10(9)/L 12/17/2024 12:57 PM CDT M[facility] Leukocytes 6.3 3.4 - 9.6 x10(9)/L 12/17/2024 12:57 PM CDT M[facility] Neutrophils 3.55 1.56 - 6.45 x10(9)/L 12/17/2024 12:57 PM CDT [facility] Blood (Blood, Venous) 12/17/2024 12:50 PM CDT 12/17/2024 12:55 PM CDT us Opal Marcano M.D. LAB BLOOD ADD-ON Final Resul t [facility] [address] [place] [address], [facility] METH [facility] [address] [place] [address] DHPM [facility] [address] [place] [address] * Thyroid Function [place] (12/10/2024 12:49 PM CDT) Pathologist [facility] TSH, Sensitive 0.7 0.3 - 4.2 mIU/L 12/10/2024 2:00 PM CDT DTL Blood (Blood, Venous) 12/10/2024 12:49 PM CDT 12/10/2024 12:55 PM CDT us Opal Marcano M.D. LAB BLOOD ADD-ON Final Resul t Performing Organization Address City/[facility]/ZIP Co de Phone Number [facility] [address] [place] [address], [facility] DTL [facility] [address] [place] [address] * (ABNORMAL) Comprehensive Metabolic Panel (12/10/2024 12:49 PM CDT) Pathologist [facility] Potassium, S 4.7 3.6 - 5.2 mmol/L 12/10/2024 2:00 PM CDT DTL Sodium, S 142 135 - 145 mmol/L 12/10/2024 2:00 PM CDT DTL Chloride, S 106 98 - 107 mmol/L 12/10/2024 2:00 PM CDT DTL Bicarbonate, S 27 22 - 29 mmol/L 12/10/2024 2:00 PM CDT DTL Anion Gap 9 7 - 15 12/10/2024 2:00 PM CDT DTL BUN (Blood Urea Nitrogen), S 21 8 - 24 mg/dL 12/10/2024 2:00 PM CDT DTL Creatinine 1.50(H) 0.74 - 1.35 mg/dL 12/10/2024 2:00 PM CDT DTL Estimated GFR (eGFR) 46(L) >=60 mL/min/BS A 12/10/2024 2:00 PM CDT DTL Comment: Estimated GFR calculated using the 2020 CKD_EPI creatinine equation. Calcium, Total, S 8.8 8.8 - 10.2 mg/dL 12/10/2024 2:00 PM CDT DTL Glucose, S 103 70 - 140 mg/dL 12/10/2024 2:00 PM CDT DTL Protein, Total, S 6.9 6.3 - 7.9 g/dL 12/10/2024 2:00 PM CDT DTL Albumin, S 3.9 3.5 - 5.0 g/dL 12/10/2024 2:00 PM CDT DTL Aspartate Aminotransferase (AST), S 16 8 - 48 U/L 12/10/2024 2:00 PM CDT DTL Alkaline Phosphatase, S 86 40 - 129 U/L 12/10/2024 2:00 PM CDT DTL Alanine Aminotransferase (ALT), S 11 7 - 55 U/L 12/10/2024 2:00 PM CDT DTL Bilirubin, Total, S 0.3 0.0 - 1.2 mg/dL 12/10/2024 2:00 PM CDT DTL Blood (Blood, Venous) 12/10/2024 12:49 PM CDT 12/10/2024 12:55 PM CDT us Opal Marcano M.D. LAB BLOOD ADD-ON Final Resul t [facility] [email or web address] [facility] [address] [place] [address], [place] DTL [facility] [address] [place] [address] * (ABNORMAL) CBC with Differential, Blood (12/10/2024 12:49 PM CDT) Hemoglobin 10.2(L) 13.2 - 16.6 g/dL 12/10/2024 1:13 PM CDT DTL Hematocrit 30.8(L) 38.3 - 48.6 % 12/10/2024 1:13 PM CDT DTL Erythrocytes 3.12(L) 4.35 - 5.65 x10(12)/L 12/10/2024 1:13 PM CDT DTL MCV 98.7(H) 78.2 - 97.9 fL 12/10/2024 1:13 PM CDT DTL RBC Distrib Width 15.2(H) 11.8 - 14.5 % 12/10/2024 1:13 PM CDT DTL Platelet Count 302 135 - 317 x10(9)/L 12/10/2024 1:13 PM CDT DTL Leukocytes 7.4 3.4 - 9.6 x10(9)/L 12/10/2024 1:13 PM CDT DTL Neutrophils 4.14 1.56 - 6.45 x10(9)/L 12/10/2024 1:13 PM CDT [facility] Lymphocytes 2.49 0.95 - 3.07 x10(9)/L 12/10/2024 1:13 PM CDT DTL Monocytes 0.56 0.26 - 0.81 x10(9)/L 12/10/2024 1:13 PM CDT DTL Eosinophils 0.12 0.03 - 0.48 x10(9)/L 12/10/2024 1:13 PM CDT DTL Basophils 0.04 0.01 - 0.08 x10(9)/L 12/10/2024 1:13 PM CDT DTL Blood (Blood, Venous) 12/10/2024 12:49 PM CDT 12/10/2024 12:55 PM CDT us Opal Marcano M.D. LAB BLOOD ADD-ON Final Resul t Performing Organization Address City/State/[facility] Co de Phone Number [facility] [address] [place] [address], [place] DTL [facility] [address] [place] [address] [facility] [address] [place] [address] documented in this encounter Visit Diagnoses Diagnosis Malignant Neoplasm Of Bladder (HCC)- Primary Medication Therapy Alf Not Anticoagulant Alf Current Drug Therapy, Chemotherapy documented in this encounter Additional Health Concerns Infection Onset Date Last Indicated Resolved Time Protective Environment 11/01/2024 11/01/2024 documented as of this encounter Care Teams Dice Dealer Relationship Specialty Start Date End Date Elsewhere, Pcp PCP - General Internal Medicine 10/09/24 documented as of this encounter
--- OUTSIDE RECORDS SUMMARY | 2025-01-17 11:52 | XMS_ITS | Encounter Summary ---
Author Organization [facility] Address [address] [place] [phone] Care Team Providers Care Simonizer Name Role Phone Elsewhere, Pcp Primary Care Provider Unavailabl e Encounter Details Date Type Department Care Team (Late st Contact Info) Description 12/31/2024 Orders Only Department of Oncology in [place], [place] [address] [place] [phone] Nasir Hamilton M.D., Ph.D. [address] [place] [phone] Social History Tobacco Use Types Packs/Day Years Used Date Smoking Tobacco: Former Smokeless Tobacco: Never Alcohol Use Standard Drinks/Week Comments Yes 3 (1 standard drink = 0.6 oz pur e alcohol) [facility] Utilities Answer Date Recorded In the past 12 months has [facility] [employer], gas, oil, or water [employer] threatened to shut off services in your [...] situation today? I have a [facility] place to live 10/09/2024 Education Answer Date Recorded What is the highest level of school you have completed or the highest degree you have received? 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 [address] [place] [phone] 01/21/2025 1:30 PM CDT Office Visit Division of Hematology in [place], [place] [address] [place] [address] Polo Dwyer M.D. [address] [place] [phone] 01/21/2025 2:30 PM CDT Infusion Department of Oncology in [place], [place] [address] [place] [phone] Opal Marcano M.D. [address] [place] [phone] 01/28/2025 9:00 AM SNAILER Lab Department of Laboratory Medicine and Pathology, [facility] in [place], [place] [address] [place] [phone] Opal Marcano M.D. [address] [place] [phone] 01/28/2025 11:00 AM SNAILER Infusion Department of Oncology in [place], [place] [address] [place] [address] Opal Marcano M.D. [address] [place] [phone] 04/03/2025 3:00 PM SNAILER Office Visit Department of Urology in [place], [place] [address] [place] [phone] Pema Rojas M.D. [address] [place] [phone] documented as of this encounter Visit Diagnoses Not on filedocumented in this encounter Additional Health Concerns Infection Onset Date Last Indicated Resolved Time Protective Environment 11/01/2024 11/01/2024 documented as of this encounter Care Teams Simonizer Relationship Specialty Start Date End Date Elsewhere, Pcp PCP - General Internal Medicine 10/09/24 documented as of this encounter
[2025-01-17 11:53] VITALS: BP 117/73; PULSE 58; RESP 18; TEMP 36.3; O2SAT 96; BMI 25.1
--- NOTE | 2025-01-17 13:23 | ED.MALEGU ---
HPI - Male Genitourinary General Date Seen: 01/17/25 Chief complaint: Urogenital Problems, Male Stated complaint: cath. change/issues/removal Time Seen by Provider: 01/17/25 12:44 Source: patient and old records reviewed Mode of arrival: ambulatory Limitations: no limitations History of Present Illness HPI Narrative: Patient is an 79-year-old male presenting to emergency department for Molina catheter change. I reviewed his previous records in his records from [facility]. He has a Molina catheter since July due to a bladder mass. He is most to get his Molina changed every 30 days and states he always does not here in the emergency department. He states it has been past due for it and is due for another Molina change. Reviewing his [facility] records, on 12/31/2024 he saw Urology and they recommend he follow up locally to have his Molina changed as it is past due to have it changed. He is having no further issues with the Molina currently. Related Data Home Medications ?Medication ?Instructions ?Recorded ?Confirmed finasteride 5 mg tablet mg 12/07/21 04/10/22 metoprolol succinate 25 mg 25 mg PO DAILY 12/07/21 01/17/25 tablet,extended release 24 hr rosuvastatin 20 mg tablet 20 mg PO 12/07/21 04/10/22 aspirin 81 mg chewable tablet 81 mg PO DAILY 10/23/24 01/17/25 (Jaiden Chewable Low Dose Aspirin) Allergies Allergy/AdvReac Type Severity Reaction Status Date / Time atorvastatin (From Lipitor) Allergy Unknown Verified 01/17/25 11:58 citalopram Allergy Unknown Verified 01/17/25 11:58 Review of Systems Narrative: Pertinent systems reviewed and were negative unless stated in HPI PFSH PFSH Social History Smoking Status: Former smoker What tobacco products do you use: cigarettes Smoking packs per day: 20 Smoking cigarettes per day: 400.0 Years smoked: 20 Smoking pack-years: 400.00 Smoking quit date/years: >15 years ago Do you use any of these nicotine containing products: None How often do you have a drink containing alcohol: 2-3 times a week How many standard drinks containing alcohol do you have on a typical day: 1 or 2 How often do you have six or more drinks on one occasion: Monthly AUDIT-C Alcohol total score: 5 Non-prescribed substance use: denies use service: No Exam Narrative: Exam Narrative: Const: Well-nourished, Well-developed, in no distress Eyes: PERRL, no conjunctival injection, and symmetrical lids HENT: Atraumatic external nose and ears. Moist mucous membranes. : Molina catheter in place. MSK:Extremities w/o deformity, Normal Active ROM Skin: Warm, Dry. No rashes or lesions. Neuro: Normal Muscle tone, No focal neurological deficits. Psych: Awake, Alert, & Oriented x3. Appropriate mood and affect. Const: Vital Signs, click to edit/add: Vital Signs - 24 hr 01/17/25 11:53 Temperature 97.4 F L Pulse Rate [Right Pulse Oximeter] 58 L Respiratory Rate 18 Blood Pressure [Ri ght Upper Arm] 117/73 Pulse Oximetry 96 Oxygen Delivery Me thod Room Air Course Vital Signs Vital signs: Initial Vital Signs Temperature 97.4 F L 01/17/25 11:53 Temperature Source Temporal Artery Scan 01/17/25 11:53 Pulse Rate 58 L 01/17/25 11:53 Pulse Rhythm Regular 01/17/25 11:53 Pulse Strength 3+ Normal 01/17/25 11:53 Respiratory Rate 18 01/17/25 11:53 Blood Pressure 117/73 01/17/25 11:53 Blood Pressure Mean 87 01/17/25 11:53 Blood Pressure Position Sitting 01/17/25 11:53 Pulse Oximetry 96 01/17/25 11:53 Oxygen Delivery Method Room Air 01/17/25 11:53 Vital Signs Temperature 97.4 F L 01/17/25 11:53 Pulse Rate 58 L 01/17/25 11:53 Respiratory Rate 18 01/17/25 11:53 Blood Pressure 117/73 01/17/25 11:53 Pulse Oximetry 96 01/17/25 11:53 Oxygen Delivery Method Room Air 01/17/25 11:53 Temperature 97.4 F L 01/17/25 11:53 Pulse Rate 58 L 01/17/25 11:53 Respiratory Rate 18 01/17/25 11:53 Blood Pressure 117/73 01/17/25 11:53 Pulse Oximetry 96 01/17/25 11:53 Oxygen Delivery Method Room Air 01/17/25 11:53 MDM - Male Genitourinary MDM Narrative Medical decision making narrative: Patient is an 79-year-old male presenting to the emergency department to his Molina catheter changed. Based on chart review it does appear that his Molina is due to be replaced. We will replace in the emergency department. The Molina was replaced. Of note patient does sing of some confusion about his treatment plan but reviewing care everywhere and epic he is going to all of his Oncology appointments. He is safe for discharge. Discharge Plan Discharge Clinical Impression: Encounter for Molina catheter replacement Patient Disposition: Home, Self-Care Condition: Stable Additional Instructions: You need to speak to your primary care provider about setting up molina replacements outpatient. Prescriptions: No Action metoprolol succinate 25 mg tablet extended release 24 hr 25 mg PO DAILY finasteride 5 mg tablet rosuvastatin 20 mg tablet 20 mg PO aspirin [Jaiden Chewable Aspirin] 81 mg tablet,chewable 81 mg PO DAILY Follow Up/Referrals: Osorio Galvan MD [Primary Care Provider, Family Practice] Stand Alone Forms: [employer] Info Instructions
== END 2025-01-17 13:55 | disposition home or self-care (01) ==
PROVIDERS: Emergency Provider Student in an Organized Health Care Education/Training Program; PCP Family Medicine
DX: Z46.6 Encounter for fitting and adjustment of urinary device (principal)
CPT/HCPCS: 51702; 99282

== ENCOUNTER 2025-01-18 14:53 | Emergency (ER) | payer MEDICARE, SELFPAY ==
--- OUTSIDE RECORDS SUMMARY | 2024-12-06 15:45 | XMS_ITS | Encounter Summary ---
Author Organization [facility] Address [address] [place] [id number] Care Team Providers Care Embossing Unit Operator Name Role Phone Elsewhere, Pcp Primary Care Provider Unavailabl e Reason for Visit * Reason Onset Date Comments Pre-visit Intake 12/06/2024 * Appointment Request (Routine) - Authorized Specialty Diagnoses / Procedures Referred By Keiko latif Referred To Contact Oncology Referral ID Status Reason Start Date Expiration Date V isits Requested Visits Authorized [id number] Authorized 11/23/2024 02/23/2026 1 1 Encounter Details Date Type Department Care Team (Latest Contact Info) Description 12/06/2024 3:45 PM CDT Clinical Communication Virtual Review in [place], [place] 200 [place] [address] Pre-visit Intake Social History Tobacco Use Types Packs/Day Years Used Date Smoking Tobacco: Former Smokeless Tobacco: Never Alcohol Use Standard Drinks/Week Comments Yes 3 (1 standard drink = 0.6 oz pur e alcohol) [facility] Utilities Answer Date Recorded In the [...] your living situation today? I have a [facility] place to live 10/09/2024 Education Answer Date Recorded What is the highest level of school you have completed or the highest degree you have received? 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 200 [place] [phone] 01/21/2025 1:30 PM CDT Office Visit Division of Hematology in [place], [place] [address] [place] [phone] Polo Dwyer M.D. [address] [place] [phone] 01/21/2025 2:30 PM CDT Infusion Department of Oncology in [place], [place] [address] [place] [address] Opal Marcano M.D. [address] [place] [phone] 01/28/2025 9:00 AM MANAGER CONTRACTING Lab Department of Laboratory Medicine and Pathology, [facility] in [place], [place] [address] [place] [address] Opal Marcano M.D. [address] [place] [phone] 01/28/2025 11:00 AM MANAGER CONTRACTING Infusion Department of Oncology in [place], [place] [address] [place] [address] Opal Marcano M.D. [address] [place] [phone] 04/03/2025 3:00 PM MANAGER CONTRACTING Office Visit Department of Urology in [place], [place] [address] [place] [phone] Pema Rojas M.D. [address] [place] [phone] documented as of this encounter Visit Diagnoses Not on filedocumented in this encounter Additional Health Concerns Infection Onset Date Last Indicated Resolved Time Protective Environment 11/01/2024 11/01/2024 documented as of this encounter Care Teams Embossing Unit Operator Relationship Specialty Start Date End Date Elsewhere, Pcp PCP - General Internal Medicine 10/09/24 documented as of this encounter
--- OUTSIDE RECORDS SUMMARY | 2024-12-10 15:00 | XMS_ITS | Encounter Summary ---
Author Organization [facility] Address [address] [place] [address] Care Team Providers Care Runway Model Name Role Phone Elsewhere, Pcp Primary Care Provider Unavailabl e Reason for Referral * MRI/CAT/PET Scan (Routine) - Closed Specialty Diagnoses / Procedures Referred By Contac t Referred To Contact Radiology Diagnoses Malignant Neoplasm Of Bladder (HCC) Procedures CT Chest with IV Contrast Polo Dwyer M.D. 200 [place] [address] Phone: tel: fax: [facility] Referral ID Status Reason Start Date Expiration Date Visits Re quested Visits Authorized [id number] Closed 12/10/2024 03/12/2026 1 1 * MRI/CAT/PET Scan (Routine) - Closed Specialty Diagnoses / Procedures Referred By Contac t Referred To Contact Radiology Diagnoses Malignant Neoplasm Of Bladder (HCC) Procedures CT Urogram without and with IV Contrast Polo Dwyer M.D. 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 [address] [place] [phone] Phone: tel: fax: Department of Oncology in [place], [place] [address] [place] [phone] Phone: tel: Referral ID Status Reason Start Date Expiration Date V isits Requested Visits Authorized [id number] Authorized 10/17/2024 10/17/2026 99 99 Encounter Details Date Type Department Care Team (Late st Contact Info) Description 12/10/2024 3:00 PM CDT Office Visit Division of Hematology in [place], [place] [address] [place] [phone] Polo Dwyer M.D. [address] [place] [phone] Malignant Neoplasm Of Bladder (HCC) (Primary Dx) Social History Tobacco Use Types Packs/Day Years Used Date Smoking Tobacco: Former Smokeless Tobacco: Never Alcohol Use Standard Drinks/Week Comments Yes 3 (1 standard drink = 0.6 oz pur e alcohol) [facility] Utilities Answer Date Recorded In the past 12 months has [facility] [employer], [employer], or water [employer] threatened to shut off services in your [...] living situation today? I have a [facility] place to live 10/09/2024 Education Answer Date Recorded What is the highest level of school you have completed or the highest degree you have received? 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 Following cycletwo of enfortumab vedotin and pembrolizumab, [...] potential transition to local oncology care in [place] if treatment is effective. - Discussed senna [...] Polo Dwyer M.D. Hematology/Oncology Fellow, PGY-4 Pgr: [phone] documented in this encounter Plan of Treatment Upcoming Encounters Date Type Department Care Team (Late st Contact Info) Description 01/21/2025 11:30 AM CDT Lab Department of Laboratory Medicine and Pathology, [facility], in [place], [place] [address] [place] [phone] Opal Marcano M.D. [address] [place] [phone] 01/21/2025 1:30 PM CDT Office Visit Division of Hematology in [place], [place] [address] [place] [phone] Polo Dwyer M.D. [address] [place] [phone] 01/21/2025 2:30 PM CDT Infusion Department of Oncology in [place], [place] [address] [place] [phone] Opal Marcano M.D. [address] [place] [phone] 01/28/2025 9:00 AM RECONCILIATION MACHINE OPERATOR Lab Department of Laboratory Medicine and Pathology, [facility] in [place], [place] [address] [place] [phone] Opal Marcano M.D. [address] [place] [phone] 01/28/2025 11:00 AM RECONCILIATION MACHINE OPERATOR Infusion Department of Oncology in [place], [place] [address] [place] [phone] Opal Marcano M.D. [address] [place] [phone] 04/03/2025 3:00 PM RECONCILIATION MACHINE OPERATOR Office Visit Department of Urology in [place], [place] [address] [place] [phone] Pema Rojas M.D. [address] [place] [phone] documented as of this encounter Results * [...] pulmonary nodules. IMPRESSION: Stable chest CT. Polo Dwyer M.D. [place] CT PROCEDURES Final Result * CT Urogram [...] of metastatic disease in the abdomenor pelvis. us Polo Dwyer M.D. IMJaiden CT PROCEDURES Final Result documented in this encounter Visit Diagnoses Diagnosis Malignant Neoplasm Of Bladder (HCC)- Primary Malignant Neoplasm Of Bladder (HCC) documented in this encounter Additional Health Concerns Infection Onset Date Last Indicated Resolved Time Protective Environment 11/01/2024 11/01/2024 documented as of this encounter Care Teams Runway Model Relationship Specialty Start Date End Date Elsewhere, Pcp PCP - General Internal Medicine 10/09/24 documented as of this encounter
--- OUTSIDE RECORDS SUMMARY | 2024-12-11 08:30 | XMS_ITS | Encounter Summary ---
Author Organization [facility] Address [address] [place] [address] Care Team Providers Care Barrel Bander Name Role Phone Elsewhere, Pcp Primary Care Provider Unavailabl e Reason for Visit * Episode Based Medications (Routine) - Authorized Specialty Diagnoses / Procedures Referred By Keiko t Referred To Contact Diagnoses Malignant Neoplasm Of Bladder (HCC) Medication Therapy Case Filler Not Anticoagulant Half-Way Current Drug Therapy, Chemotherapy Polo Dwyer M.D. [address] [place] [phone] Phone: tel: fax: Department of Oncology in [place], [place] [address] [place] [phone] Phone: tel: Referral ID Status Reason Start Date Expiration Date V isits Requested Visits Authorized [id number] Authorized 10/17/2024 10/17/2026 99 99 Encounter Details Date Type Department Care Team (Late st Contact Info) Description 12/11/2024 8:30 AM CDT Infusion Department of Oncology in [place], [place] [address] [place] [phone] Opal Marcano M.D. [address] [place] [phone] Malignant Neoplasm Of Bladder (HCC) (Primary Dx); Medication Therapy Case Filler Not Anticoagulant; Half-Way Current Drug Therapy, Chemotherapy Social History Tobacco [...] your living situation today? I have a [facility] place to live 10/09/2024 Education Answer Date Recorded What is the highest level of school you have completed or the highest degree you have received? 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, SANITARY LANDFILL SUPERVISOR, BERTA) 05/11/2020 Sex and Gender Information Value Date Recorded Sex Assigned at Male 09/04/2024 9:32 AM CDT Legal Sex Male 5:45 PM STAKING ENGINEER Gender Identity Male 09/04/2024 9:32 AM [...] Lab Department of Laboratory Medicine and Pathology, [facility] in [place], [place] [address] [place] [phone] Opal Marcano M.D. [address] [place] [phone] 01/21/2025 1:30 PM CDT Office Visit Division of Hematology in [address] [phone] Polo Dwyer M.D. [address] [place] [phone] 01/21/2025 2:30 PM CDT Infusion Department of Oncology in [place], [place] [address] [place] [phone] Opal Marcano M.D. [address] [place] [phone] 01/28/2025 9:00 AM STAKING ENGINEER Lab Department of Laboratory Medicine and Pathology, [facility] in [place], [place] [address] [place] [phone] Opal Marcano M.D. [address] [place] [phone] 01/28/2025 11:00 AM STAKING ENGINEER Infusion Department of Oncology in [place], [place] [address] [place] [phone] Opal Marcano M.D. [address] [place] [phone] 04/03/2025 3:00 PM STAKING ENGINEER Office Visit Department of Urology in [place], [place] [address] [place] [phone] Pema Rojas M.D. [address] [place] [phone] documented as of this encounter Visit Diagnoses Diagnosis Malignant Neoplasm Of Bladder (HCC)- Primary Medication Therapy Case Filler Not Anticoagulant Case Filler Current Drug Therapy, Chemotherapy documented in this [...] FROM LIGHT.Indications:Malignant Neoplasm Of Bladder (HCC),Medication Therapy Case Filler Not Anticoagulant,Half-Way Current Drug Therapy, Chemotherapy New Bag 12/11/2024 9:56 AM CDT 70 mg 234 mL/hr ondansetron (PF) injection 8 mg (Zofran) 8 mg, intravenous, Once, On Tue12/11/24 at 0930, For 1 doseIndications:Malignant Neoplasm Of Bladder (HCC),Medication Therapy Case Filler Not Anticoagulant,Half-Way Current Drug Therapy, Chemotherapy Given 12/11/2024 9:19 [...] 0.2-5 micron).Indications:Malignant Neoplasm Of Bladder (HCC),Medication Therapy Case Filler Not Anticoagulant,Case Filler Current Drug Therapy, Chemotherapy New Bag 12/11/2024 [...] documented as of this encounter Care Teams Barrel Bander Relationship Specialty Start Date End Date Elsewhere, Pcp PCP - General Internal Medicine 10/09/24 documented as of this encounter
--- OUTSIDE RECORDS SUMMARY | 2024-12-17 10:20 | XMS_ITS | Encounter Summary ---
Author Organization [facility] Address [address] [place] [phone] Care Team Providers Care Pie Filler Name Role Phone Elsewhere, Pcp Primary Care Provider Unavailabl e Reason for Visit * Outpatient (Routine) - Closed Specialty Diagnoses / Procedures Referred By Keiko latif Referred To Contact Oncology Yaritza Nance APRN, C.N.P., M.S.N. [address] [place] [phone] Phone: tel: fax: [facility] Referral ID Status Reason Start Date Expiration Date Visits Re quested Visits Authorized [id number] Closed 12/17/2024 06/18/2026 1 1 Encounter Details Date Type Department Care Team (Late st Contact Info) Description 12/17/2024 10:20 AM CDT Office Visit Department of Oncology in [place], [place] [address] [place] [phone] Yaritza Nance APRN C.N.P., M.S.N. [address] [place] [phone] Swelling Leg Left (Primary Dx) Social History Tobacco Use Types Packs/Day Years Used Date Smoking Tobacco: Former Smokeless Tobacco: Never Alcohol Use Standard Drinks/Week Comments Yes 3 (1 standard drink = 0.6 oz pur e alcohol) [facility] Utilities Answer Date Recorded In the past 12 months has th e electric, gas, oil, or water [employer] threatened to shut off services in your [...] your living situation today? I have a [facility] place to live 10/09/2024 Education Answer Date Recorded What is the highest level of school you have completed or the highest degree you have received? 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, [employer], BERTA) 05/11/2020 Sex and Gender Information Value Date Recorded Sex Assigned at Male 09/04/2024 9:32 AM CDT Legal Sex Male 5:45 PM BENEFIT AUTHORIZER Gender Identity Male 09/04/2024 9:32 AM CDT Sexual Orientation Straight 09/04/2024 9: 32 AM CDT documented as of this encounter Progress Notes * Yaritza Nance APRN, C.N.P., M.S.N. - 12/17/2024 10:20 AM CDT SUBJECTIVE CHIEF COMPLAINT/PURPOSE OF VISIT Seen in [facility] Acute Clinic for: Left lower extremity swelling [...] and Pathology, [facility] in [place], [place] [address] [place] [phone] Opal Marcano M.D. [address] [place] [phone] 01/21/2025 1:30 PM CDT Office Visit Division of Hematology in [address] [phone] Polo Dwyer M.D. [address] [place] [phone] 01/21/2025 2:30 PM CDT Infusion Department of Oncology in [address] [phone] Opal Marcano M.D. [address] [place] [phone] 01/28/2025 9:00 AM BENEFIT AUTHORIZER Lab Department of Laboratory Medicine and Pathology, [facility] in [place], [place] [address] [place] [address] Opal Marcano M.D. [address] [place] [phone] 01/28/2025 11:00 AM BENEFIT AUTHORIZER Infusion Department of Oncology in [place], [place] [address] [place] [phone] Opal Marcano M.D. [address] [place] [phone] 04/03/2025 3:00 PM BENEFIT AUTHORIZER Office Visit Department of Urology in [place], [place] [address] [place] [phone] Pema Rojas M.D. [address] [place] [phone] documented as of this encounter Visit Diagnoses Diagnosis Swelling Leg Left- Primary documented in this encounter Additional Health Concerns Infection Onset Date Last Indicated Resolved Time Protective Environment 11/01/2024 11/01/2024 documented as of this encounter Care Teams Pie Filler Relationship Specialty Start Date End Date Elsewhere, Pcp PCP - General Internal Medicine 10/09/24 documented as of this encounter
--- OUTSIDE RECORDS SUMMARY | 2024-12-17 15:00 | XMS_ITS | Encounter Summary ---
Author Organization [facility] Address [address] [place] [address] Care Team Providers Care Nail Expert Name Role Phone Elsewhere, Pcp Primary Care Provider Unavailabl e Reason for Referral * Outpatient (Routine) - Closed Specialty Diagnoses / Procedures Referred By Contac t Referred To Contact Diagnoses Swelling Leg Left Procedures US Lower Extremity Veins Left Yaritza Nance APRN, C.NVivek, M.S.N. 200 [place] [address] Phone: tel: fax: [facility] Referral ID Status Reason Start Date Expiration Date Visits Re quested Visits Authorized [id number] Closed 12/17/2024 03/19/2026 1 1 * Outpatient (Routine) - Closed Specialty Diagnoses / Procedures Referred By Contac t Referred To Contact Oncology Yaritza Nance APRN, C.N.P., M.S.N. 200 [place] [address] Phone: tel: fax: [facility] Referral ID Status Reason Start Date Expiration Date Visits Re quested Visits Authorized [id number] Closed 12/17/2024 06/18/2026 1 1 Reason for Visit * Episode Based Medications (Routine) - Authorized Specialty Diagnoses / Procedures Referred By Keiko t Referred To Contact Diagnoses Malignant Neoplasm Of Bladder (HCC) Medication Therapy Half-Way Not Anticoagulant Half-Way Current Drug Therapy, Chemotherapy Polo Dwyer M.D. [address] [place] [phone] Phone: tel: fax: Department of Oncology in [place], [place] [address] [place] [phone] Phone: tel: Referral ID Status Reason Start Date Expiration Date V isits Requested Visits Authorized [id number] Authorized 10/17/2024 10/17/2026 99 99 Encounter Details Date Type Department Care Team (Late st Contact Info) Description 12/17/2024 3:00 PM CDT Infusion Department of Oncology in [place], [place] [address] [place] [phone] Opal Marcano M.D. [address] [place] [phone] Malignant Neoplasm Of Bladder (HCC) (Primary Dx); Medication Therapy Half-Way Not Anticoagulant; Wire Lather Current Drug Therapy, Chemotherapy; Swelling Leg Left Social History Tobacco Use Types Packs/Day Years Used Date Smoking Tobacco: Former Smokeless Tobacco: Never Alcohol Use Standard Drinks/Week Comments Yes 3 (1 standard drink = 0.6 oz pur e alcohol) [facility] Utilities Answer Date Recorded In the past 12 months has 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 200 [place] [phone] 01/21/2025 1:30 PM CDT Office Visit Division of Hematology in [place], [place] 200 [place] [phone] Polo Dwyer M.D. [address] [place] [phone] 01/21/2025 2:30 PM CDT Infusion Department of Oncology in [place], [place] [address] [place] [phone] Opal Marcano M.D. [address] [place] [phone] 01/28/2025 9:00 AM INDUSTRIAL REFRIGERATION MECHANIC Lab Department of Laboratory Medicine and Pathology, [facility] in [place], [place] [address] [place] [phone] Opal Marcano M.D. [address] [place] [phone] 01/28/2025 11:00 AM INDUSTRIAL REFRIGERATION MECHANIC Infusion Department of Oncology in [place], [place] [address] [place] [phone] Opal Marcano M.D. [address] [place] [phone] 04/03/2025 3:00 PM INDUSTRIAL REFRIGERATION MECHANIC Office Visit Department of Urology in [address] [phone] Pema Rojas M.D. [address] [place] [phone] Scheduled Referrals Name Type Priority Associated Diagnoses Orde r Schedule Oncology office visit (clinic) Outpatient Referral Routine Expected: 12/17/2024, Expires: 03/18/2026 documented as of this encounter Results * US Lower Extremity Veins Left (12/18/2024 11:20 AM CDT) Anatomical Region Laterality Modality Lower Extremity, Ultrasound RST LOS, Ultrasound ARZ LOS, Ultrasound FLA LOS Left Ultrasound Impressions 12/18/2024 11:25 AM CDT Negative for acute DVT. Narrative 12/18/2024 11:25 AM CDT EXAM: US LOWER EXTREMITY VEINS LEFT Exam performed with color and spectral Doppler analysis. COMPARISON: 11/12/2024. FINDINGS: LEFT: Common Femoral Vein: Negative. Profunda Femoral Vein: Negative. Femoral Vein: Negative. Popliteal Vein: Negative. Gastrocnemius Veins: Negative where seen. Soleal Veins: Negative where seen. Posterior Tibial Veins: Negative where seen. Peroneal Veins: Negative where seen. No chronic post thrombotic changes are identified today. Great Saphenous Vein: Negative where seen. Small Saphenous Vein: Not evaluated. Popliteal Fossa: Negative. Other: n/a Information on venous thrombosis and management can be found on the [employer] site. Link [email or web address]/topic/clinical-answers/[email or web address]/cpm-[email or web address] 05287 Procedure Note Wilian Bone M.D. - 12/18/2024 EXAM: US LOWER EXTREMITY VEINS LEFT Exam performed with color and spectral Doppler analysis. COMPARISON: 11/12/2024. FINDINGS: LEFT: Common Femoral Vein: Negative. Profunda Femoral Vein: Negative. Femoral Vein: Negative. Popliteal Vein: Negative. Gastrocnemius Veins: Negative where seen. Soleal Veins: Negative where seen. Posterior Tibial Veins: Negative where seen. Peroneal Veins: Negative where seen. No chronic post thrombotic changesare identified today. Great Saphenous Vein: Negative where seen. Small Saphenous Vein: Not evaluated. Popliteal Fossa: Negative. Other: n/a Information on venous thrombosis and management can be found on the[employer] site. [email or web address]/topic/clinical-answers/[email or web address]/[facility] -2049 1725 IMPRESSION: Negative for acute DVT. us Yaritza Nance APRN, C.N.P., M.S.N. [facility] P ROCEDURES Final Result documented in this encounter Visit Diagnoses Diagnosis Malignant Neoplasm Of Bladder (HCC)- Primary Medication Therapy Wire Lather Not Anticoagulant Wire Lather Current Drug Therapy, Chemotherapy Swelling Leg Left Swelling Leg Left documented in this encounter Administered Medications Inactive Administered Medications - up to 3 most recent administrations Medication Order MAR Action Action Date Dose Rate Site enfortumab vedotin-ejfv 70 mg in NaCl 0.9% 117 mL IVPB (Padcev) 70 mg (rounded from 65.3307 mg = 0.8333 mg/kg 78.4 kg Treatment plan Measured weight), intravenous, at 234 mL/hr, Administer over 30 Minutes, Once, On Tue12/17/24 at 1515, For 1 dose, Enfortumab vedotin-ejfv dose is capped at 125 mg. If patient is >/= 100 kg, dose reduction should be based on this max dose. Do NOT shake. Handle with care. PROTECT FROM LIGHT.Indications:Malignant Neoplasm Of Bladder (HCC),Medication Therapy Wire Lather Not Anticoagulant,Half-Way Current Drug Therapy, Chemotherapy New Bag 12/17/2024 4:04 PM CDT 70 mg 234 mL/hr NaCl 0.9% infusion 20 mL/hr, intravenous, Continuous Infusion: Per Instructions PRN, IV gas line installer, Starting on Tue12/17/24 at 1425, For 1 dayIndications:Malignant Neoplasm Of Bladder (HCC),Medication Therapy Wire Lather Not Anticoagulant,Wire Lather Current Drug Therapy, Chemotherapy New Bag 12/17/2024 2:40 PM CDT 20 mL/hr 20 mL/hr ondansetron (PF) injection 8 mg (Zofran) 8 mg, intravenous, Once, On Tue12/17/24 at 1445, For 1 doseIndications:Malignant Neoplasm Of Bladder (HCC),Medication Therapy Half-Way Not Anticoagulant,Half-Way Current Drug Therapy, Chemotherapy Given 12/17/2024 2:50 PM CDT 8 mg sodium chloride 0.9 % injection 10 mL 10 mL, intravenous, As needed, line care, Starting on Tue12/17/24 at 1425, Prior to blood sampling, post blood transfusion, or post blood sampling.Indications:Maligna nt Neoplasm Of Bladder (HCC) Given 12/17/2024 4:29 PM CDT 20 mL sodium chloride 0.9 % injection 3 mL 3 mL, intravenous, As needed, line care, Starting on Tue12/17/24 at 1425, Prior to and following infusion and between multiple consecutive infusions.Indications:Malign ant Neoplasm Of Bladder (HCC) Given 12/17/2024 2:39 PM CDT 3 mL documented in this encounter Additional Health Concerns Infection Onset Date Last Indicated Resolved Time Protective Environment 11/01/2024 11/01/2024 documented as of this encounter Care Teams Nail Expert Relationship Specialty Start Date End Date Elsewhere, Pcp PCP - General Internal Medicine 10/09/24 documented as of this encounter
--- OUTSIDE RECORDS SUMMARY | 2024-12-18 10:19 | XMS_ITS | Encounter Summary ---
Author Organization [facility] Address [address] [place] [address] Care Team Providers Care Security Team Lead Name Role Phone Elsewhere, Pcp Primary Care Provider Unavailabl e Reason for Referral * Outpatient (Routine) - Closed Specialty Diagnoses / Procedures Referred By Contac t Referred To Contact Diagnoses Swelling Leg Left Procedures US Lower Extremity Veins Left Yaritza Nance APRN, C.NSamantha., M.S.N. [address] [place] [phone] Phone: tel: fax: [facility] Referral ID Status Reason Start Date Expiration Date Visits Re quested Visits Authorized [id number] Closed 12/17/2024 03/19/2026 1 1 Reason for Visit * Outpatient (Routine) - Closed Specialty Diagnoses / Procedures Referred By Contac t Referred To Contact Diagnoses Swelling Leg Left Procedures US Lower Extremity Veins Left Yaritza Nance APRN, C.N.P., M.S.N. [address] [place] [phone] Phone: tel: fax: [facility] Referral ID Status Reason Start Date Expiration Date Visits Re quested Visits Authorized [id number] Closed 12/17/2024 03/19/2026 1 1 Encounter Details Date Type Department Care Team (Latest Contact Info) Description 12/18/2024 10:19 AM CDT - 12/18/2024 11:59 PM CDT Hospital Encounter Department of Radiology, [facility], in [place], [place] [address] [place] [address] Yaritza Nance APRN, C.N.P., M.S.N. [address] [place] [address] Swelling Leg Left Discharge Disposition: Home or Self Care Social History Tobacco Use Types Packs/Day Years Used Date Smoking Tobacco: Former Smokeless Tobacco: Never Alcohol Use Standard Drinks/Week Comments Yes 3 (1 standard drink = 0.6 oz pur e alcohol) [facility] Utilities Answer Date Recorded In the past 12 months has e [employer], gas, oil, or water [employer] threatened to shut off services in your [...] 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, COMPUTER ENGINEERING PROFESSOR, BERTA) 05/11/2020 Sex and Gender Information Value Date Recorded Sex Assigned at Male 09/04/2024 9:32 AM CDT Legal Sex Male 5:45 PM GI TECHNICIAN Gender Identity Male 09/04/2024 9:32 AM [...] Lab Department of Laboratory Medicine and Pathology, [facility], in [place], [place] [address] [place] [phone] Opal Marcano M.D. [address] [place] [phone] 01/21/2025 1:30 PM CDT Office Visit Division of Hematology in [place], [place] [address] [place] [phone] Polo Dwyer M.D. 200 [place] [phone] 01/21/2025 2:30 PM CDT Infusion Department of Oncology in [place], [place] [address] [place] [phone] Opal Marcano M.D. [address] [place] [phone] 01/28/2025 9:00 AM GI TECHNICIAN Lab Department of Laboratory Medicine and Pathology, [facility] in [place], [place] [address] [place] [phone] Opal Marcano M.D. [address] [place] [phone] 01/28/2025 11:00 AM GI TECHNICIAN Infusion Department of Oncology in [place], [place] [address] [place] [phone] Opal Marcano M.D. [address] [place] [phone] 04/03/2025 3:00 PM GI TECHNICIAN Office Visit Department of Urology in [place], [place] [address] [place] [phone] Pema Rojas M.D. [address] [place] [phone] documented as of this encounter Procedures Procedure [...] and management can be found on the [employer] site. Link https://[employer].[facility].org/topic/clinical-answers/cnt-50164348/[facility]-204 [address]46 Procedure Note Wilian Bone M.D. - 12/18/2024 [...] thrombosis and management can be found on the[employer] site. Linkhttps://[employer].[facility].org/topic/clinical-answers/cnt-08594161/cpm -2049 1725 IMPRESSION: Negative for acute DVT. us Yaritza Nance APRN, C.N.P., M.S.N. [facility] Jazlyn [employer]PLE[employer]INNIE Final Result documented in this encounter Visit Diagnoses Diagnosis Swelling Leg Left documented in this encounter Additional Health Concerns Infection Onset Date Last Indicated Resolved Time Protective Environment 11/01/2024 11/01/2024 documented as of this encounter Care Teams Security Team Lead Relationship Specialty Start Date End Date Elsewhere, Pcp PCP - General Internal Medicine 10/09/24 documented as of this encounter
--- OUTSIDE RECORDS SUMMARY | 2024-12-28 14:15 | XMS_ITS | Encounter Summary ---
Author Organization [facility] Address [address] [place] [address] Care Team Providers Care Road Design Engineer Name Role Phone Elsewhere, Pcp Primary Care Provider Unavailabl e Reason for Visit * Reason Onset Date Comments Previsit Preparation 12/28/2024 * Appointment Request (Routine) - Authorized Specialty Diagnoses / Procedures Referred By Keiko latif Referred To Contact Oncology Referral ID Status Reason Start Date Expiration Date V isits Requested Visits Authorized [id number] Authorized 11/23/2024 02/23/2026 1 1 Encounter Details Date Type Department Care Team (Latest Contact Info) Description 12/28/2024 2:15 PM CDT Clinical Communication Virtual Review in [place], [place] 200 [place] [address] Previsit Preparation Social History Tobacco Use Types Packs/Day Years Used Date Smoking Tobacco: Former Smokeless Tobacco: Never Alcohol Use Standard Drinks/Week Comments Yes 3 (1 standard drink = 0.6 oz pur e alcohol) [facility] Utilities Answer Date Recorded In the [...] your living situation today? I have a [facility] place to live 10/09/2024 Education Answer Date Recorded What is the highest level of school you have completed or the highest degree you have received? 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 200 [place] [phone] 01/21/2025 1:30 PM CDT Office Visit Division of Hematology in [place], [place] [address] [place] [address] Polo Dwyer M.D. [address] [place] [phone] 01/21/2025 2:30 PM CDT Infusion Department of Oncology in [place], [place] [address] [place] [address] Opal Marcano M.D. [address] [place] [phone] 01/28/2025 9:00 AM LEGAL ADMINISTRATIVE ASSISTANT Lab Department of Laboratory Medicine and Pathology, [facility] in [place], [place] [address] [place] [address] Opal Marcano M.D. [address] [place] [phone] 01/28/2025 11:00 AM LEGAL ADMINISTRATIVE ASSISTANT Infusion Department of Oncology in [place], [place] [address] [place] [address] Opal Marcano M.D. [address] [place] [phone] 04/03/2025 3:00 PM LEGAL ADMINISTRATIVE ASSISTANT Office Visit Department of Urology in [place], [place] [address] [place] [phone] Pema Rojas M.D. [address] [place] [phone] documented as of this encounter Visit Diagnoses Not on filedocumented in this encounter Additional Health Concerns Infection Onset Date Last Indicated Resolved Time Protective Environment 11/01/2024 11/01/2024 documented as of this encounter Care Teams Road Design Engineer Relationship Specialty Start Date End Date Elsewhere, Pcp PCP - General Internal Medicine 10/09/24 documented as of this encounter
--- OUTSIDE RECORDS SUMMARY | 2024-12-31 12:10 | XMS_ITS | Encounter Summary ---
Author Organization [facility] Address [address] [place] [address] Care Team Providers Care Java Web Application Developer Name Role Phone Elsewhere, Pcp Primary Care Provider Unavailabl e Reason for Referral * MRI/CAT/PET Scan (Routine) - Closed Specialty Diagnoses / Procedures Referred By Contac t Referred To Contact Radiology Diagnoses Malignant Neoplasm Of Bladder (HCC) Procedures CT Chest with IV Contrast Polo Dwyer M.D. [address] [place] [address] Phone: tel: fax: [facility] Referral ID Status Reason Start Date Expiration Date Visits Re quested Visits Authorized [id number] Closed 12/10/2024 03/12/2026 1 1 * MRI/CAT/PET Scan (Routine) - Closed Specialty Diagnoses / Procedures Referred By Contac t Referred To Contact Radiology Diagnoses Malignant Neoplasm Of Bladder (HCC) Procedures CT Urogram without and with IV Contrast Polo Dwyer M.D. [address] [place] [address] Phone: tel: fax: [facility] Referral ID Status Reason Start Date Expiration Date Visits Re quested Visits Authorized [id number] Closed 12/10/2024 03/12/2026 1 1 Reason for Visit * MRI/CAT/PET Scan (Routine) - Closed Specialty Diagnoses / Procedures Referred By Keiko latif Referred To Contact Radiology Diagnoses Malignant Neoplasm Of Bladder (HCC) Procedures CT Chest with IV Contrast Polo Dwyer M.D. [address] [place] [phone] Phone: tel: fax: [facility] Referral ID Status Reason Start Date Expiration Date Visits Re quested Visits Authorized [id number] Closed 12/10/2024 03/12/2026 1 1 Encounter Details Date Type Department Care Team (Late st Contact Info) Description 12/31/2024 12:10 PM CDT - 12/31/2024 11:59 PM CDT Hospital Encounter Department of Radiology, [facility], in [place], [place] [address] [place] [address] Polo Dwyer M.D. [address] [place] [phone] Malignant Neoplasm Of Bladder (HCC) Discharge Disposition: Home or Self Care Social History Tobacco Use Types Packs/Day Years Used Date Smoking Tobacco: Former Smokeless Tobacco: Never Alcohol Use Standard Drinks/Week Comments Yes 3 (1 standard drink = 0.6 oz pur e alcohol) [facility] Utilities Answer Date Recorded In the past 12 months has [facility], Food[employer], oil, or water [employer] threatened to shut off services in your [...] 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, ANIMAL HUSBANDRY TECHNICIAN, BERTA) 05/11/2020 Sex and Gender Information Value Date Recorded Sex Assigned at Male 09/04/2024 9:32 AM CDT Legal Sex Male 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 [address] [place] [phone] 01/21/2025 1:30 PM CDT Office Visit Division of Hematology in [place], [place] [address] [place] [address] Polo Dwyer M.D. [address] [place] [phone] 01/21/2025 2:30 PM CDT Infusion Department of Oncology in [place], [place] [address] [place] [address] Opal Marcano M.D. [address] [place] [phone] 01/28/2025 9:00 AM HUMAN RESOURCES GENERALIST Lab Department of Laboratory Medicine and Pathology, [facility], in [place], [place] [address] [place] [address] Opal Marcano M.D. [address] [place] [phone] 01/28/2025 11:00 AM HUMAN RESOURCES GENERALIST Infusion Department of Oncology in [place], [place] [address] [place] [phone] Opal Marcano M.D. [address] [place] [phone] 04/03/2025 3:00 PM HUMAN RESOURCES GENERALIST Office Visit Department of Urology in [place], [place] [address] [place] [phone] Pema Rojas M.D. [address] [place] [phone] documented as of this encounter Procedures Procedure [...] IMPRESSION: Stable chest CT. Polo Dwyer M.D. [facility] CT PROCEDURES Final Result * CT Urogram [...] intravenous, Once in imaging, contrast, Starting on Tue12/31/24 at 1229, For 1 dose, Imaging Protocol Orders, Dose per Radiant Medication Guidelines Given 12/31/2024 12:49 PM CDT 140 mL sodium chloride (PF) 0.9 % injection 1-100 mL 1-100 mL, intravenous, Once, On Tue12/31/24 at 1245, For 1 dose, Imaging Protocol Orders, Dose per Radiant Medication Guidelines Given 12/31/2024 12:49 PM CDT 190 mL documented in this encounter Additional Health Concerns Infection Onset Date Last Indicated Resolved Time Protective Environment 11/01/2024 11/01/2024 documented as of this encounter Care Teams Java Web Application Developer Relationship Specialty Start Date End Date Elsewhere, Pcp PCP - General Internal Medicine 10/09/24 documented as of this encounter
--- OUTSIDE RECORDS SUMMARY | 2024-12-31 16:00 | XMS_ITS | Encounter Summary ---
Author Organization [facility] Address [address] [place] [address] Care Team Providers Care Invoice Clerk Name Role Phone Elsewhere, Pcp Primary Care Provider Unavailabl e Reason for Referral * Outpatient (Routine) - Authorized Specialty Diagnoses / Procedures Referred By Keiko latif Referred To Contact Urology Diagnoses Malignant Neoplasm Of Bladder (HCC) Aziza Dwyer M.D. [address] [place] [phone] Phone: tel: fax: Pema Rojas M.D. [address] [place] [phone] Phone: tel: fax: Referral ID Status Reason Start Date Expiration Date V isits Requested Visits Authorized [id number] Authorized 01/04/2025 07/06/2026 1 1 Reason for Visit * Episode Based Medications (Routine) - Authorized Specialty Diagnoses / Procedures Referred By Keiko latif Referred To Contact Diagnoses Malignant Neoplasm Of Bladder (HCC) Medication Therapy Customer Program Specialist Not Anticoagulant Assisted Current Drug Therapy, Chemotherapy Aziza Dwyer M.D. [address] [place] [phone] Phone: tel: fax: Department of Oncology in [place], [place] [address] [place] [address] Phone: tel: Referral ID Status Reason Start Date Expiration Date V isits Requested Visits Authorized [id number] Authorized 10/17/2024 10/17/2026 99 99 Encounter Details Date Type Department Care Team (Late st Contact Info) Description 12/31/2024 4:00 PM CDT Office Visit Department of Oncology in [place], [place] [address] [place] [address] Aziza Dwyer M.D. [address] [place] [address] Malignant Neoplasm Of Bladder (HCC) (Primary Dx); Change In Bowel Habit; Edema Lower Extremity Social History Tobacco Use Types Packs/Day Years Used Date Smoking Tobacco: Former Smokeless Tobacco: Never Alcohol Use Standard Drinks/Week Comments Yes 3 (1 standard drink = 0.6 oz pur e alcohol) [facility] Utilities Answer Date Recorded In the past 12 months has [employer], gas, oil, or water [employer] threatened to shut off services in your [...] 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, FINAL INSPECTOR, BERTA) 05/11/2020 Sex and Gender Information Value Date Recorded Sex Assigned at Male 09/04/2024 9:32 AM CDT Legal Sex Male 5:45 PM ADMINISTRATIVE OPERATIONS COORDINATOR Gender Identity Male 09/04/2024 9:32 AM CDT Sexual Orientation Straight 09/04/2024 9: 32 AM CDT documented as of this encounter Last Filed Vital Signs Vital Sign Reading Time Taken Comments Blood Pressure - - Pulse - - Temperature 36 C (96.8 F) 12/31/2024 3:49 PM CDT Respiratory Rate 17 12/31/2024 3:49 PM CDT Oxygen Saturation 97% 12/31/2024 3:49 PM CDT Inhaled Oxygen Concentration - - Weight 78.7 kg (173 lb 8 oz) 12/31/2024 3:49 PM CDT Height - - Body Mass Index 28.29 12/10/2024 2:47 PM CDT documented in this encounter Progress Notes * Aziza Dwyer M.D. - 12/31/2024 4:00 PM CDT Oncology Clinic Follow Up Note CHIEF COMPLAINT/PURPOSE OF VISIT Primary Staff Oncologist: Schuyler Menjivar M.D. Primary Fellow Oncologist: Aziza Dwyer M.D. Supervised by: Isra Botello M.D. Purpose of visit: Treatment The patient verbally consented to an audio recording of their visit to assist with the completion of documentation. SUBJECTIVE HISTORY OF PRESENT ILLNESS Hernandez Samayoa is a 79 y.o. male with a relevant history of metastatic papillary bladder cancer on dose-reduced enfortumab vedotin and pembrolizumab and multivessel CAD who presents for follow-up appointment prior to receiving C3D1. Oncology History: Oncology History Overview Note July [...] Enfortumab vedotin-ejfv / Pembrolizumab Start Date: 11/01/2024 INTERVAL HISTORY: Mr. Samayoa presents to the medical oncology clinic and is accompanied by his , Roderick. He continues to tolerate his reduce-dose enfortumab-vedotin and pembrolizumab combination therapy well overall.He endorses chronic bilateral lower extremity swelling (left>right). Notably, recent ultrasound of the left lower extremity showed no evidence of a lower extremity venous thromboembolism. Mr. Samayoadoes not use compression socks or elevated his legs to reduce his edema. He has not yet discussed this swelling with his primary care doctor yet. He experiences gastrointestinal symptoms, including alternating constipation and diarrhea. He reports not having bowel movements for several days, followed by episodes of loose stools. He has a history of a tailbone injury that affects his rectoanal functioning. He feels that his appetite has decreased over the past months with his weight remaining stable during per our records. Mr. Samayoa's molina catheter remains in place and is overdue for a catheter exchange. He has avoided catheter exchange at his local [facility] given experiencedissues with leakage in the past. He states that they were able to control his urine leakage with upsizing his molina catheter. Otherwise, he denies fevers, chills, night sweats, chest pain, shortness of breath, nausea, vomiting, diarrhea, as well as new rashes or pain. SYSTEMS REVIEW Negative except as noted above in the HPI. PAST MEDICAL/SURGICAL HISTORY/SOCIAL HISTORY/FAMILY HISTORY Reviewed and available in the EMR. PHYSICAL EXAMINATION Vitals: 12/31/24 1549 Resp: 17 Temp: 36 ??C SpO2: 97% Vitals and nursing note reviewed. Constitutional General: [...] # Blood loss anemia 2/2 neoplasm # Intermittent constipation, GI upset # Bilateral lower extremity edema Mr. 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 CT urogram was performed on 09/03/24 and revealed an 8.8 x 4.5 x 2.8 cm mass in the right lateral to posterior wall of the bladder, aswell as retroperitoneal and bilateral pelvic adenopathy. TURBT [...] given his multiple comorbidities/clinical frailty. He has now completed three cycles of treatment and has planned C4D1 tomorrow. CT A/P today reveals a decrease in size of the mass at the right inferior lateral bladder wall and resolution of previously seen right hydronephrosis. Previously seen retroperitoneal and pelvic lymphadenopathy have significantly decreased in size. There is no evidence of new metastatic disease in the chest, abdomen, or p miguel. CT chest did reveal moderate-severe coronary artery calcifications as well as prominent aortic valve calcifications. Labs reviewed and stable from prior. Given Mr. Samayoa's favorable response to three cycles of enfortumab vedotin and pembrolizumab, we discussed the possibility for Mr. Samayoa to receive his treatment closer to home if a local oncologist isavailable to provide his cares. He and his family are supportive of this plan. Lastly, Mr. Samayoa inquires about removal of his molina catheter. I will reach out to his Urology team for consideration offoley removal. I've also recommended aura Mr. Samayoa that he present to his local clinic for catheter exchange as this is overdue. All patient and family questions were addressed. PLAN: - Proceed with C4D1 Enfortumab vedotin and pembrolizumab on 01/01/25. - Pre-treatment visit for C5D1 scheduled on 01/21/25. - Will plan to facilitate transfer of care to a local oncologist in [place], if possible. - Will discuss case with prior Urology team regarding possible molina removal. - Instructed patient to arrange molina catheter exchange locally as done so in the past. - Encouraged patient to continue fiber supplementation use to achieve a more consistent stool character. - Recommended symptom diary use to assist with managing recurrent constipation. - Encouraged adequate daily hydration with at least 60 fl oz per day. - Recommend the use of compression stockings and leg elevation at night. - Advised patient to discuss further evaluation of his lower extremity edema with his primary care provider. Total time of encounter: I personally spent 45 minutes in direct and indirect patient care related to today's visit. This patient was discussed with Medical recruiting operations consultant, Dr. Olivarez. Aziza Dwyer M.D. Hematology/Oncology Fellow, PGY-4 Pgr: [phone] documented in this encounter Miscellaneous Notes * Addendum Note - Aziza Dwyer M.D. - 12/31/2024 4:00 PM CDTAddended by: AZIZA DWYER on: 01/04/2025 04:40 PM Modules accepted: Orders documented in this encounter Plan of Treatment Upcoming Encounters Date Type Department Care Team (Late st Contact Info) Description 01/21/2025 11:30 AM CDT Lab Department of Laboratory Medicine and Pathology, [place], [place] [address] [place] [phone] Opal Marcano M.D. [address] [place] [phone] 01/21/2025 1:30 PM CDT Office Visit Division of Hematology in [place], [place] [address] [place] [phone] Aziza Dwyer M.D. [address] [place] [phone] 01/21/2025 2:30 PM CDT Infusion Department of Oncology in [place], [place] [address] [place] [phone] Opal Marcano M.D. [address] [place] [phone] 01/28/2025 9:00 AM ADMINISTRATIVE OPERATIONS COORDINATOR Lab Department of Laboratory Medicine and Pathology, [place], [place] [address] [place] [phone] Opal Marcano M.D. [address] [place] [address] 01/28/2025 11:00 AM ADMINISTRATIVE OPERATIONS COORDINATOR Infusion Department of Oncology in [place], [place] [address] [place] [address] Opal Marcano M.D. [address] [place] [phone] 04/03/2025 3:00 PM ADMINISTRATIVE OPERATIONS COORDINATOR Office Visit Department of Urology in [place], [place] [address] [place] [address] Pema Rojas M.D. [address] [place] [phone] Scheduled Referrals Name Type Priority Associated Diagnoses Orde r Schedule Return to provider in another specialty Outpatient Referral Routine Malignant Neoplasm Of Bladder (HCC) Expected: 01/04/2025, Expires: 04/06/2026 documented as of this encounter Visit Diagnoses Diagnosis Malignant Neoplasm Of Bladder (HCC)- Primary Change In Bowel Habit Edema Lower Extremity documented in this encounter Additional Health Concerns Infection Onset Date Last Indicated Resolved Time Protective Environment 11/01/2024 11/01/2024 documented as of this encounter Care Teams Invoice Clerk Relationship Specialty Start Date End Date Elsewhere, Pcp PCP - General Internal Medicine 10/09/24 documented as of this encounter
--- OUTSIDE RECORDS SUMMARY | 2025-01-01 07:30 | XMS_ITS | Encounter Summary ---
Author Organization [facility] Address [address] [place] [address] Care Team Providers Care Wrap Knitting Machine Operator Name Role Phone Elsewhere, Pcp Primary Care Provider Unavailabl e Reason for Visit * Episode Based Medications (Routine) - Authorized Specialty Diagnoses / Procedures Referred By Keiko t Referred To Contact Diagnoses Malignant Neoplasm Of Bladder (HCC) Medication Therapy Pattern Setter Not Anticoagulant Assisted Current Drug Therapy, Chemotherapy Polo Dwyer M.D. [address] [place] [phone] Phone: tel: fax: Department of Oncology in [place], [place] [address] [place] [phone] Phone: tel: Referral ID Status Reason Start Date Expiration Date V isits Requested Visits Authorized [id number] Authorized 10/17/2024 10/17/2026 99 99 Encounter Details Date Type Department Care Team (Late st Contact Info) Description 01/01/2025 7:30 AM CDT Infusion Department of Oncology in [place], [place] [address] [place] [phone] Opal Marcano M.D. [address] [place] [phone] Malignant Neoplasm Of Bladder (HCC) (Primary Dx); Medication Therapy Pattern Setter Not Anticoagulant; Assisted Current Drug Therapy, Chemotherapy Social History Tobacco Use Types Packs/Day Years Used Date Smoking Tobacco: Former Smokeless Tobacco: Never Alcohol Use Standard Drinks/Week Comments Yes 3 (1 standard drink = 0.6 oz pur e alcohol) [facility] Utilities Answer Date Recorded In [...] 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, MOTION PICTURE ACTOR, BERTA) 05/11/2020 Sex and Gender Information Value Date Recorded Sex Assigned at Male 09/04/2024 9:32 AM CDT Legal Sex Male 5:45 PM MALT HOUSE KILN OPERATOR Gender Identity Male 09/04/2024 9:32 AM CDT Sexual Orientation Straight 09/04/2024 9: 32 AM CDT documented as of this encounter Plan of Treatment Upcoming Encounters Date Type Department Care Team (Late st Contact Info) Description 01/21/2025 11:30 AM CDT Lab Department of Laboratory Medicine and Pathology, [facility] in [place], [place] [address] [place] [phone] Opal Marcano M.D. [address] [place] [phone] 01/21/2025 1:30 PM CDT Office Visit Division of Hematology in [place], [place] [address] [place] [phone] Polo Dwyer M.D. [address] [place] [phone] 01/21/2025 2:30 PM CDT Infusion Department of Oncology in [place], [place] [address] [place] [phone] Opal Marcano M.D. [address] [place] [phone] 01/28/2025 9:00 AM MALT HOUSE KILN OPERATOR Lab Department of Laboratory Medicine and Pathology, [facility] in [place], [place] [address] [place] [phone] Opal Marcano M.D. [address] [place] [phone] 01/28/2025 11:00 AM MALT HOUSE KILN OPERATOR Infusion Department of Oncology in [place], [place] [address] [place] [phone] Opal Marcano M.D. [address] [place] [phone] 04/03/2025 3:00 PM MALT HOUSE KILN OPERATOR Office Visit Department of Urology in [place], [place] [address] [place] [phone] Pema Rojas M.D. [address] [place] [phone] documented as of this encounter Visit Diagnoses Diagnosis Malignant Neoplasm Of Bladder (HCC)- Primary Medication Therapy Assisted Not Anticoagulant Pattern Setter Current Drug Therapy, Chemotherapy documented in this [...] mL/hr, Administer over 30 Minutes, Once, On Tue01/01/25 at 0900, For 1 dose, Enfortumab vedotin-ejfv dose is capped at 125 mg. If patient is >/= 100 kg, dose reduction should be based on this max dose. Do NOT shake. Handle with care. PROTECT FROM LIGHT.Indications:Malignant Neoplasm Of Bladder (HCC),Medication Therapy Assisted Not Anticoagulant,Pattern Setter Current Drug Therapy, Chemotherapy New Bag 01/01/2025 8:52 AM CDT 70 mg 234 mL/hr ondansetron (PF) injection 8 mg (Zofran) 8 mg, intravenous, Once, On Tue01/01/25 at 0830, For 1 doseIndications:Malignant Neoplasm Of Bladder (HCC),Medication Therapy Pattern Setter Not Anticoagulant,Pattern Setter Current Drug Therapy, Chemotherapy Given 01/01/2025 8:20 AM CDT 8 mg pembrolizumab 100 mg in NaCl 0.9% 62 mL IVPB (Keytruda) 100 mg, intravenous, at 124 mL/hr, Administer over 30 Minutes, Once, On Tue01/01/25 at 0930, For 1 dose, Do not co-administer other drugs through the same infusion line. Do not shake. Use low protein binding filter (pore size of 0.2-5 micron).Indications:Malignant Neoplasm Of Bladder (HCC),Medication Therapy Pattern Setter Not Anticoagulant,Pattern Setter Current Drug Therapy, Chemotherapy New Bag 01/01/2025 9:31 AM CDT 100 mg 124 mL/hr sodium chloride 0.9 % injection 10 mL 10 mL, intravenous, As needed, line care, Starting on Tue01/01/25 at 0811, Prior to blood sampling, post blood transfusion, or post blood sampling.Indications:Malignan t Neoplasm Of Bladder (HCC) Given 01/01/2025 9:51 AM CDT 20 mL Given 01/01/2025 9:21 AM CDT 20 mL documented in this encounter Additional Health Concerns Infection Onset Date Last Indicated Resolved Time Protective Environment 11/01/2024 11/01/2024 documented as of this encounter Care Teams Wrap Knitting Machine Operator Relationship Specialty Start Date End Date Elsewhere, Pcp PCP - General Internal Medicine 10/09/24 documented as of this encounter
--- OUTSIDE RECORDS SUMMARY | 2025-01-07 11:00 | XMS_ITS | Encounter Summary ---
Author Organization [facility] Address [address] [place] [address] Care Team Providers Care Construction Economist Name Role Phone Elsewhere, Pcp Primary Care Provider Unavailabl e Reason for Visit * Episode Based Medications (Routine) - Authorized Specialty Diagnoses / Procedures Referred By Keiko t Referred To Contact Diagnoses Malignant Neoplasm Of Bladder (HCC) Medication Therapy Rotary Saw Operator Not Anticoagulant [facility] Current Drug Therapy, Chemotherapy Polo Dwyer M.D. [address] [place] [phone] Phone: tel: fax: Department of Oncology in [place], [place] [address] [place] [phone] Phone: tel: Referral ID Status Reason Start Date Expiration Date V isits Requested Visits Authorized [id number] Authorized 10/17/2024 10/17/2026 99 99 Encounter Details Date Type Department Care Team (Late st Contact Info) Description 01/07/2025 11:00 AM CDT Infusion Department of Oncology in [place], [place] [address] [place] [phone] Opal Marcano M.D. [address] [place] [phone] Malignant Neoplasm Of Bladder (HCC) (Primary Dx); Medication Therapy [facility] Not Anticoagulant; Rotary Saw Operator Current Drug Therapy, Chemotherapy Social History Tobacco Use Types Packs/Day Years Used Date Smoking Tobacco: Former Smokeless Tobacco: Never Alcohol Use Standard Drinks/Week Comments Yes 3 (1 standard drink = 0.6 oz pur e alcohol) [facility] Utilities Answer Date Recorded In the [...] 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, HUMAN RESOURCES LEADER, BERTA) 05/11/2020 Sex and Gender Information Value Date Recorded Sex Assigned at Male 09/04/2024 9:32 AM CDT Legal Sex Male 5:45 PM WEIR FISHERMAN Gender Identity Male 09/04/2024 9:32 AM CDT Sexual Orientation Straight 09/04/2024 9: 32 AM CDT documented as of this encounter Last Filed Vital Signs Vital Sign Reading Time Taken Comments Blood Pressure 113/60 01/07/2025 10:50 AM CDT Pulse 52 01/07/2025 10:50 AM CDT Temperature 36.5 C (97.7 F) 01/07/2025 10:50 AM CDT Respiratory Rate - - Oxygen Saturation - - Inhaled Oxygen Concentration - - Weight 78.8 kg (173 lb 11.6 oz) 025 10:50 AM CDT Height - - Body Mass Index 28.32 12/10/2024 2:47 PM CDT documented in this encounter Plan of Treatment Upcoming Encounters Date Type Department Care Team (Late st Contact Info) Description 01/21/2025 11:30 AM CDT Lab Department of Laboratory Medicine and Pathology, [facility] in [place], [place] [address] [place] [phone] Opal Marcano M.D. [address] [place] [phone] 01/21/2025 1:30 PM CDT Office Visit Division of Hematology in [place], [place] [address] [place] [phone] Polo Dwyer M.D. [address] [place] [phone] 01/21/2025 2:30 PM CDT Infusion Department of Oncology in [place], [place] [address] [place] [phone] Opal Marcano M.D. [address] [place] [phone] 01/28/2025 9:00 AM WEIR FISHERMAN Lab Department of Laboratory Medicine and Pathology, [facility] in [place], [place] [address] [place] [phone] Opal Marcano M.D. [address] [place] [phone] 01/28/2025 11:00 AM WEIR FISHERMAN Infusion Department of Oncology in [place], [place] [address] [place] [phone] Opal Marcano M.D. [address] [place] [phone] 04/03/2025 3:00 PM WEIR FISHERMAN Office Visit Department of Urology in [place], [place] [address] [place] [phone] Pema Rojas M.D. [address] [place] [phone] documented as of this encounter Visit Diagnoses Diagnosis Malignant Neoplasm Of Bladder (HCC)- Primary Medication Therapy [facility] Not Anticoagulant Rotary Saw Operator Current Drug Therapy, Chemotherapy documented in this [...] mL/hr, Administer over 30 Minutes, Once, On Tue01/07/25 at 1215, For 1 dose, Enfortumab vedotin-ejfv dose is capped at 125 mg. If patient is >/= 100 kg, dose reduction should be based on this max dose. Do NOT shake. Handle with care. PROTECT FROM LIGHT.Indications:Malignant Neoplasm Of Bladder (HCC),Medication Therapy [facility] Not Anticoagulant,Rotary Saw Operator Current Drug Therapy, Chemotherapy New Bag 01/07/2025 11:51 AM CDT 70 mg 234 mL/hr ondansetron (PF) injection 8 mg (Zofran) 8 mg, intravenous, Once, On Tue01/07/25 at 1145, For 1 doseIndications:Malignant Neoplasm Of Bladder (HCC),Medication Therapy Rotary Saw Operator Not Anticoagulant,Rotary Saw Operator Current Drug Therapy, Chemotherapy Given 01/07/2025 11:28 AM CDT 8 mg sodium chloride 0.9 % injection 10 mL 10 mL, intravenous, As needed, line care, Starting on 01/07/25 at 1055, Prior to blood sampling, post blood transfusion, or post blood sampling.Indications:Malignant Neoplasm Of Bladder (HCC) Given 01/07/2025 12:27 PM CDT 10 mL documented in this encounter Additional Health Concerns Infection Onset Date Last Indicated Resolved Time Protective Environment 11/01/2024 11/01/2024 documented as of this encounter Care Teams Construction Economist Relationship Specialty Start Date End Date Elsewhere, Pcp PCP - General Internal Medicine 10/09/24 documented as of this encounter
--- OUTSIDE RECORDS SUMMARY | 2025-01-18 14:55 | XMS_ITS | Encounter Summary ---
Author Organization [facility] Address [address] [place] [address] Care Team Providers Care Drywall Sprayer Name Role Phone Elsewhere, Pcp Primary Care Provider Unavailabl e Encounter Details Date Type Department Care Team (Late st Contact Info) Description 08/14/2024 Orders Only Department of Urology in [place], [place] [address] [place] [address] [facility], Provider, MD [facility] Urinary Social [...] 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, PRODUCT SUPPORT REP, BERTA) 05/11/2020 Sex and Gender Information Value Date Recorded Sex Assigned at Male 09/04/2024 9:32 AM CDT Legal Sex Male 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 [address] [place] [phone] 01/21/2025 1:30 PM CDT Office Visit Division of Hematology in [place], [place] [address] [place] [phone] Polo Dwyer M.D. [address] [place] [phone] 01/21/2025 2:30 PM CDT Infusion Department of Oncology in [place], [place] [address] [place] [phone] Opal Marcano M.D. [address] [place] [phone] 01/28/2025 9:00 AM BACK TENDER INSULATION BOARD Lab Department of Laboratory Medicine and Pathology, [facility] in [place], [place] [address] [place] [phone] Opal Marcano M.D. [address] [place] [phone] 01/28/2025 11:00 AM BACK TENDER INSULATION BOARD Infusion Department of Oncology in [place], [place] [address] [place] [phone] Opal Marcano M.D. [address] [place] [phone] 04/03/2025 3:00 PM BACK TENDER INSULATION BOARD Office Visit Department of Urology in [place], [place] [address] [place] [phone] Pema Rojas M.D. [address] [place] [phone] documented as of this encounter Results * [...] 08/16/2024 10:57 AM CDT DTL Predicted Range [id number] mg/24 h 08/16/2024 10:57 AM CDT DTL Comment Micro done on <2.5 mL 08/16/2024 9:24 AM CDT DTL Urine (Urine, Indwelling Catheter) 08/16/2024 8:04 AM CDT 08/16/2024 8:56 AM CDT us Callum Marcos M.D. LAB URINE ORDERABLES Final Result [facility] [place] [facility] [address] [place] [address], [facility] DTL [facility] [address] [place] [address] documented in this encounter Visit Diagnoses Diagnosis Retention Urinary documented in this encounter Additional Health Concerns Infection Onset Date Last Indicated Resolved Time Protective Environment 11/01/2024 11/01/2024 documented as of this encounter Care Teams Drywall Sprayer Relationship Specialty Start Date End Date Elsewhere, Pcp PCP - General Internal Medicine 10/09/24 documented as of this encounter
--- OUTSIDE RECORDS SUMMARY | 2025-01-18 14:55 | XMS_ITS | Encounter Summary ---
Author Organization [facility] Address [address] [place] [address] Care Team Providers Care Burner Hand Name Role Phone Elsewhere, Pcp Primary Care Provider Unavailabl e Encounter Details Date Type Department Care Team (Late st Contact Info) Description 12/19/2024 Results Follow-Up Department of Oncology in [place], [place] [address] [place] [address] Polo Dwyer M.D. [address] [place] [address] CBC, Chemotherapy, No Alerts, Comprehensive Metabolic Panel Social History Tobacco Use Types Packs/Day Years Used Date Smoking Tobacco: Former Smokeless Tobacco: Never Alcohol Use Standard Drinks/Week Comments Yes 3 (1 standard drink = 0.6 oz pur e alcohol) [facility] Utilities Answer Date Recorded In the past 12 months has [facility] [employer], gas, oil, or water [employer] threatened to shut off services in [...] your living situation today? I have a [facility] place to live 10/09/2024 Education Answer Date Recorded What is the highest level of school you have completed or the highest degree you have received? 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 - 01/11/2025 12:17 PM CDT Patient records will be sent to the [facility] in [place], [place] for transfer of careto a local [...] Laboratory Medicine and Pathology, [facility] in [place], [place] [address] [place] [phone] Opal Marcano M.D. [address] [place] [phone] 01/21/2025 1:30 PM CDT Office Visit Division of Hematology in [address] [place] [address] [phone] Polo Dwyer M.D. [address] [place] [phone] 01/21/2025 2:30 PM CDT Infusion Department of Oncology in [place], [place] [address] [place] [phone] Opal Marcano M.D. [address] [place] [phone] 01/28/2025 9:00 AM COLLAR RUNNER Lab Department of Laboratory Medicine and Pathology, [facility], in [place], [place] [address] [place] [phone] Opal Marcano M.D. [address] [place] [phone] 01/28/2025 11:00 AM COLLAR RUNNER Infusion Department of Oncology in [place], [place] [address] [place] [phone] Opal Marcano M.D. [address] [place] [phone] 04/03/2025 3:00 PM COLLAR RUNNER Office Visit Department of Urology in [place], [place] [address] [place] [address] Pema Rojas M.D. [address] [place] [address] documented as of this encounter Visit Diagnoses Not on filedocumented in this encounter Additional Health Concerns Infection Onset Date Last Indicated Resolved Time Protective Environment 11/01/2024 11/01/2024 documented as of this encounter Care Teams Burner Hand Relationship Specialty Start Date End Date Elsewhere, Pcp PCP - General Internal Medicine 10/09/24 documented as of this encounter
--- OUTSIDE RECORDS SUMMARY | 2025-01-18 14:55 | XMS_ITS | Clinical Summary ---
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 We will proceed with medical therapy for [...] Care Team Description 01/08/2025 Travel 01/08/2025 Telephone [facility] [address] [place] [address] Osorio Galvan MD Appointment (Has appt for cath removal, we have no orders. ) 12/17/2024 Orders Only [facility] Scanner 1 scan: (1-Ord) SANDOVAL, MULTIPLE LAB RESULTS, 12/17/2024 11/16/2024 10:05 AM CDT Office Visit [facility] [address] [place] [place] [address] Osorio Galvan MD Memory Loss (Follow up to memory loss); Immunization/Injecti on (Would like his B12 injection today - last given 10/18/2024) 11/16/2024 Travel 11/01/2024 Telephone [facility] [address] [facility] [place] [address] Osorio Galvan MD Medication Management 11/01/2024 Telephone [facility] [address] [facility] [place] [address] Osorio Galvan MD Error-please disregard 10/24/2024 Orders Only [facility] Scanner 1 scan: (1-Ord) DARREN US SCROTUM, 10/24/2024 10/24/2024 Nurse Triage [facility] [address] [place] [place] [address] Osorio Galvan MD Catheter Problem 10/23/2024 Orders Only [facility] Scanner 1 scan: (1-Ord) DARREN, URINALYSIS, 10/23/2024 10/23/2024 Nurse Triage [facility] [address] [place] [address] Osorio Galvan MD Catheter Problem 10/23/2024 Nurse Triage [facility] [address] [place] [address] Osorio Galvan MD Catheter Problem 10/22/2024 10:00 AM CDT Office Visit [facility] [address] [facility] [place] [address] Osorio Galvan MD Hospital F/U ([place] 10/07-10/11 ) 10/22/2024 Travel 10/18/2024 9:00 AM CDT Nurse/Clinic Staff Only [facility] [address] [place] [address] Immunization/Injecti on (VITAMIN B-12 INJECTION ) 10/18/2024 Travel from Last 3 Months Immunizations Immunization Administration Dates Next Due Amb Influenza, Inact (High-d ose) (Flu Clinic Only) 12/26/2015,12/26/2015,01/15/2014 COVID-19 VACCINE SPIKEVAX (M ODERNA 50MCG/0.5ML) 12YO+ PFS 05/31/2023,01/11/2023 COVID-19 vaccine ([employer]-Bio NTech 30mcg/0.3mL) 12YO+ BIVALENT PF, MDV 08/12/2022,12/28/2021 COVID-19 vaccine (Pfizer-Bio NTech 30mcg/0.3mL) 12YO+ LESLI-SUCROSE PF, MDV 06/30/2021 COVID-19 vaccine ([employer]-Bio NTech 30mcg/0.3mL) PF, MDV 12/24/2020,06/12/2020,05/22/2020 Influenza, High-dose [...] on file Legal Sex Male 8:42 AM MRI SPECIALIST Gender Identity Not on file Sexual [...] this topic Medical Devices Implanted Type Area Legal Operations Manager Device Identifier Shelf Expiration Date Model / Serial / Lot Tissue Pericardium 0.8x8cm Xenosure - [id number] Implanted:Qty: 1 on 03/10/2020 by Isidro Smiley MD at [facility] Right: Carotid Artery [employer] 07/23/2025 0.8P8# / / [id number] Procedures Procedure Name Priority Date/Time Associated Diagnosis [...] MD CHEMISTRY Final Resu lt [facility] [address] [place] [address], [facility] [address] [place] [address] from Last 3 Months Insurance MEDICARE PB [...] Comments Code Status Discussion: Discussed Care Teams Accounts Collector Relationship Specialty Start Date End Date Osorio Galvan MD [address] [place] [address] PCP - General Family Practice 07/20/12
--- OUTSIDE RECORDS SUMMARY | 2025-01-18 14:55 | XMS_ITS | CCD ---
Author Name Interface, [id number] Address [address] [place] [address] Oncology Address [address] [place] [id number] Reason for Visit Social History Date Name Value 11/24/2024 Sex Male
--- OUTSIDE RECORDS SUMMARY | 2025-01-18 14:55 | XMS_ITS | Clinical Summary ---
Author Organization [employer] [facility] [employer] Address [address], [place] [address] Care Team Providers Care Civil Preparedness Officer Name Role Phone Osorio Galvan MD Primary Care Provider [phone] Source Comments You are receiving this document as you are listed as the primary care provider,follow-up provider, or the patient has been referred to you for consultation.This is in compliance with the Medicare and[facility] Hospitalca[facility] EHR Incentive Program,which states Providers who transition their patient to another setting of careor provider of care or refers their patient to another provider of care shouldprovide summary care record for each transition of care or referral. 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 We will proceed with medical therapy for [...] complete this topic Insurance MEDICARE Care Teams Civil Preparedness Officer Relationship Specialty Start Date End Date Osorio Gal[place] [address] PCP - General Family Practice 12/14/21
--- OUTSIDE RECORDS SUMMARY | 2025-01-18 14:56 | XMS_ITS | Clinical Summary ---
Author Organization [facility] Address [address] [place] [address] Care Team Providers Care Grievance And Appeals Coordinator Name Role Phone Elsewhere, Pcp Primary Care Provider Unavailabl e Source Comments Patient records contain information from all sites at [facility]. For routine questions regarding patient records, call [phone] during business hours, M-F 8:00 AM - 5:00 PM Central Time. Record requests for emergency care only can be directed to [phone] at any time.[facility] Allergies Active Allergy Reactions Criticality Noted Date [...] Problems Problem Noted Date Diagnosed Date Other Medical Records Clerk Current Drug Therapy 10/17/2024 Medication Therapy Alf Not Anticoagulant 0 10/17/2024 Medical Records Clerk Current Drug Therapy, Chemotherapy Angina Unstable 10/09/2024 [...] (09/05/2024): 2019 Atherosclerotic Heart Diseas e Of [place] Coronary Artery Without Angina Pectoris 03/07/2020 Overview (09/05/2024): 01/2020 Per Cardiology note from [facility]: CTCA shows severe OM1 (small) and distal RCA 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 We will proceed with medical therapy for chronic stable CAD. Hyperlipidemia 02/28/2012 Encounters * This document contains information received from the source organization and may not represent a complete record from that organization. Date Type Department Care Team Description 01/11/2025 Clinical Communication Department of Urology in [place], [place] [address] [place] [phone] Pema Rojas M.D. 01/07/2025 11:00 AM CDT Infusion Department of Oncology in [address] [address] Opal Marcano M.D. Malignant Neoplasm Of Bladder (HCC) (Primary Dx); Medication Therapy Alf Not Anticoagulant; Alf Current Drug Therapy, Chemotherapy 01/01/2025 7:30 AM CDT Infusion Department of Oncology in [address] [address] Opal Marcano M.D. Malignant Neoplasm Of Bladder (HCC) (Primary Dx); Medication Therapy Medical Records Clerk Not Anticoagulant; Alf Current Drug Therapy, Chemotherapy 12/31/2024 4:00 PM CDT Office Visit Department of Oncology in [address] [address] Polo Dwyer M.D. Malignant Neoplasm Of Bladder (HCC) (Primary Dx); Change In Bowel Habit; Edema Lower Extremity 12/31/2024 12:10 PM CDT - 12/31/2024 11:59 PM CDT Hospital Encounter Department of Radiology, [facility], in [address] [address] Polo Dwyer M.D. Malignant Neoplasm Of Bladder (HCC) Discharge Disposition: Home or Self Care 12/31/2024 Orders Only Department of Oncology in [address] [address] Nasir Hamilton M.D., Ph.D. 12/31/2024 Clinical Communication Division of Hematology in [address] [address] Polo Dwyer M.D. Order Request 12/28/2024 2:15 PM CDT Clinical Communication Virtual Review in [address] [address] Previsit Preparation 12/19/2024 Results Follow-Up Department of Oncology in [address] [address] Polo Dwyer M.D. CBC, Chemotherapy, No Alerts, Comprehensive Metabolic Panel 12/18/2024 10:19 AM CDT - 12/18/2024 11:59 PM CDT Hospital Encounter Department of Radiology, [facility], in [address] [address] Yaritza Nance APRN, C.N.P., M.S.N. Swelling Leg Left Discharge Disposition: Home or Self Care 12/17/2024 3:00 PM CDT Infusion Department of Oncology in [address] [address] Opal Marcano M.D. Malignant Neoplasm Of Bladder (HCC) (Primary Dx); Medication Therapy Medical Records Clerk Not Anticoagulant; Alf Current Drug Therapy, Chemotherapy; Swelling Leg Left 12/17/2024 10:20 AM CDT Office Visit Department of Oncology in [address] [address] Yaritza Nance APRN, C.N.P., M.S.N. Swelling Leg Left (Primary Dx) 12/11/2024 8:30 AM CDT Infusion Department of Oncology in [address] [address] Opal Marcano M.D. Malignant Neoplasm Of Bladder (HCC) (Primary Dx); Medication Therapy Medical Records Clerk Not Anticoagulant; Medical Records Clerk Current Drug Therapy, Chemotherapy 12/11/2024 Orders Only Department of Oncology in [address] [address] Zuri Pichardo, PMakAPoly 12/10/2024 3:00 PM CDT Office Visit Division of Hematology in [address] [address] Polo Dwyer M.D. Malignant Neoplasm Of Bladder (HCC) (Primary Dx) 12/06/2024 3:45 PM CDT Clinical Communication Virtual Review in [address] [address] Pre-visit Intake 11/27/2024 9:30 AM CDT Infusion Department of Oncology in [address] [address] Alisa Menjivar M.D. Malignant Neoplasm Of Bladder (HCC) (Primary Dx); Medication Therapy Alf Not Anticoagulant; Medical Records Clerk Current Drug Therapy, Chemotherapy 11/23/2024 Orders Only Department of Oncology in [address] [phone] Polo Dwyer M.D. 11/20/2024 3:00 PM CDT Infusion Department of Oncology in [place], [place] [address] [place] [phone] Alisa Menjivar M.D. Malignant Neoplasm Of Bladder (HCC) (Primary Dx); Medication Therapy Alf Not Anticoagulant; Medical Records Clerk Current Drug Therapy, Chemotherapy 11/20/2024 1:30 PM CDT Office Visit Department of Oncology in [address] [phone] Alisa Menjivar M.D. Johnson, Isla M, M.D. Malignant Neoplasm Of Bladder (HCC) (Primary Dx) 11/20/2024 8:00 AM CDT Clinical Support Department of Oncology in [address] [address] Polo Dwyer M.D. China Parikh, M.S.W., L.I.C.S.W. Malignant Neoplasm Of Bladder (HCC); Counseling Phase Of Life Problem 11/20/2024 Orders Only Department of Oncology in [address] [address] Nasir Hamilton M.D., Ph.D. 11/19/2024 Clinical Communication Division of Hematology in [address] [address] Polo Dwyer M.D. 12/10 OV 11/19/2024 Orders Only Department of Oncology in [address] [address] Opal Marcano M.D. Malignant Neoplasm Of Bladder (HCC) (Primary Dx); Medication Therapy Medical Records Clerk Not Anticoagulant; Medical Records Clerk Current Drug Therapy, Chemotherapy 11/12/2024 2:15 PM CDT Office Visit Department of Cardiovascular Medicine in [address] [address] Elisa Alva M.D. Malignant Neoplasm Of Bladder (HCC) (Primary Dx); Other Medical Records Clerk Current Drug Therapy; Mass Bladder; Atherosclerotic Heart Disease Of [place] Coronary Artery Without Angina Pectoris; Atherosclerotic Heart Disease [place] Coronary Artery With Other Forms Angina Pectoris (Stable Angina/Angina Of Exertion) 11/12/2024 9:30 AM CDT - 11/12/2024 11:59 PM CDT Hospital Encounter Department of Radiology, [facility], in [place], [place] [address] [place] [phone] Alisa Menjivar M.D. Malignant Neoplasm Of Bladder (HCC); Swelling Leg Left Discharge Disposition: Home or Self Care 11/07/2024 1:00 PM CDT Infusion Department of Oncology in [place], [place] [address] [place] [phone] Alisa Menjivar M.D. Malignant Neoplasm Of Bladder (HCC) (Primary Dx); Medication Therapy Alf Not Anticoagulant; Medical Records Clerk Current Drug Therapy, Chemotherapy 11/07/2024 Orders Only Department of Oncology in [address] [address] Alisa Menjivar M.D. Malignant Neoplasm Of Bladder (HCC) (Primary Dx); Swelling Leg Left 11/07/2024 Clinical Communication Division of Hematology in [address] [address] Polo Dwyer M.D. Order Request 11/02/2024 Results Follow-Up Department of Oncology in [address] [address] Polo Dwyer M.D. CBC with Differential, Blood, Comprehensive Metabolic Panel, Thyroid Function [place], Additional followed-up results: 2 11/01/2024 8:00 AM CDT Education Department of Oncology in [place], [place] [address] [place] [phone] Polo Dwyer M.D. Lubale, Paula J, R.N. Malignant Neoplasm Of Bladder (HCC) (Primary Dx) 11/01/2024 8:00 AM CDT Infusion Department of Oncology in [address] [address] Polo Dwyer M.D. Malignant Neoplasm Of Bladder (HCC) (Primary Dx); Medication Therapy Alf Not Anticoagulant; Alf Current Drug Therapy, Chemotherapy 11/01/2024 Orders Only Department of Oncology in [place], [place] [address] [place] [phone] Alisa Menjivar M.D. 10/30/2024 8:50 AM CDT - 10/30/2024 11:59 PM CDT Hospital Encounter Department of Laboratory Medicine in [address] [address] Polo Dwyer M.D. Malignant Neoplasm Of Bladder (HCC); Medication Therapy Alf Not Anticoagulant; Medical Records Clerk Current Drug Therapy, Chemotherapy; Other Alf Current Drug Therapy Discharge Disposition: Home or Self Care 10/29/2024 Clinical Communication Division of Hematology in [place], [place] [address] [place] [phone] Polo Dwyer M.D. 11/20 OV 10/29/2024 Clinical Communication Department of Oncology in [place], [place] [address] [place] [phone] Rosa Watters, R.N. 10/26/2024 Clinical Communication Department of Oncology in [place], [place] [address] [place] [phone] Rosa Watters, R.N. 10/23/2024 Clinical Communication Department of Oncology in [place], [place] [address] [place] [phone] Alisa Menjivar M.D. Order Request from Last 3 Months Immunizations Immunization Administration Dates Next Due Influenza, Unspecified 01/02/2013 Social History Tobacco Use Types Packs/Day Years Used Date Smoking Tobacco: Former Smokeless Tobacco: Never Alcohol Use Standard Drinks/Week Comments Yes 3 (1 standard drink = 0.6 oz pur e alcohol) [facility] Utilities Answer Date Recorded In the past 12 months has e [employer], gas, oil, or water [employer] threatened to shut off services in your [...] your living situation today? I have a [facility] place to live 10/09/2024 Education Answer Date Recorded What is the highest level of school you have completed or the highest degree you have received? 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) 05/11/2020 Sex and Gender Information Value Date Recorded Sex Assigned at Male 09/04/2024 9:32 AM CDT Legal Sex Male 5:45 PM BOOK MENDER Gender Identity Male 09/04/2024 9:32 AM CDT [...] Weight 78.8 kg (173 lb 11.6 oz) 10:50 AM CDT Height 166.8 cm (5' 5.67) 12/10/2024 2:47 PM CD T Body Mass Index 28.32 12/10/2024 2:47 PM CDT Plan of Treatment Upcoming Encounters Date Type Department Care Team (Late st Contact Info) Description 01/21/2025 11:30 AM CDT Lab Department of Laboratory Medicine and Pathology, [facility] in [place], [place] [address] [place] [phone] Opal Marcano M.D. [address] [place] [phone] 01/21/2025 1:30 PM CDT Office Visit Division of Hematology in [place], [place] [address] [place] [phone] Polo Dwyer M.D. [address] [place] [phone] 01/21/2025 2:30 PM CDT Infusion Department of Oncology in [place], [place] [address] [place] [phone] Opal Marcano M.D. [address] [place] [phone] 01/28/2025 9:00 AM BOOK MENDER Lab Department of Laboratory Medicine and Pathology, [facility], in [place], [place] [address] [place] [phone] Opal Marcano M.D. [address] [place] [phone] 01/28/2025 11:00 AM BOOK MENDER Infusion Department of Oncology in [place], [place] [address] [place] [phone] Opal Mracano M.D. [address] [place] [phone] 04/03/2025 3:00 PM BOOK MENDER Office Visit Department of Urology in [place], [place] [address] [place] [phone] Pema Rojas M.D. [address] [place] [phone] Health Maintenance Due Date Last Done Comments Office Visit for Blood Pressure Check / Re-check 1945 RSV vaccine - (32-36 weeks) or 50+ years (1 - 1-dose 75+ series) 10/27/2018 Depression Screening (Annual PHQ-2) 03/28/2024 Fall Risk Screen (Annual) 03/28/2024 COVID-19 Vaccine ( season) 2024 07/18/2024, 12/09/2023, 05/31/2023, Additional [...] Malignant Neoplasm Of Bladder (HCC) Medication Therapy Medical Records Clerk Not Anticoagulant Alf Current Drug Therapy, Chemotherapy CBC CHEMO - NO ALERTS Routine 01/07/2025 8:47 AM CDT Malignant Neoplasm Of Bladder (HCC) Medication Therapy Medical Records Clerk Not Anticoagulant Alf Current Drug Therapy, Chemotherapy COMPREHENSIVE METABOLIC PANEL, S/P Routine 12/31/2024 2:39 PM CDT Malignant Neoplasm Of Bladder (HCC) Medication Therapy Medical Records Clerk Not Anticoagulant Alf Current Drug Therapy, Chemotherapy CBC WITH DIFFERENTIAL, B Routine 12/31/2024 2:39 PM CDT Malignant Neoplasm Of Bladder (HCC) Medication Therapy Medical Records Clerk Not Anticoagulant Medical Records Clerk Current Drug Therapy, Chemotherapy CT CHEST WITH [...] Malignant Neoplasm Of Bladder (HCC) Medication Therapy Medical Records Clerk Not Anticoagulant Alf Current Drug Therapy, Chemotherapy CBC CHEMO - NO ALERTS Routine 12/17/2024 12:50 PM CDT Malignant Neoplasm Of Bladder (HCC) Medication Therapy Alf Not Anticoagulant Medical Records Clerk Current Drug Therapy, Chemotherapy THYROID FUNCTION CASCADE, S Routine 12/10/2024 12:49 PM CDT Malignant Neoplasm Of Bladder (HCC) Medication Therapy Alf Not Anticoagulant Medical Records Clerk Current Drug Therapy, Chemotherapy COMPREHENSIVE METABOLIC PANEL, S/P Routine 12/10/2024 12:49 PM CDT Malignant Neoplasm Of Bladder (HCC) Medication Therapy Medical Records Clerk Not Anticoagulant Alf Current Drug Therapy, Chemotherapy CBC WITH DIFFERENTIAL, B Routine 12/10/2024 12:49 PM CDT Malignant Neoplasm Of Bladder (HCC) Medication Therapy Alf Not Anticoagulant Medical Records Clerk Current Drug Therapy, Chemotherapy COMPREHENSIVE METABOLIC PANEL, S/P Routine 11/27/2024 8:01 AM CDT Malignant Neoplasm Of Bladder (HCC) Medication Therapy Alf Not Anticoagulant Alf Current Drug Therapy, Chemotherapy CBC CHEMO - NO ALERTS Routine 11/27/2024 8:01 AM CDT Malignant Neoplasm Of Bladder (HCC) Medication Therapy Medical Records Clerk Not Anticoagulant Medical Records Clerk Current Drug Therapy, Chemotherapy COMPREHENSIVE METABOLIC PANEL, S/P Routine 11/20/2024 10:57 AM CDT Malignant Neoplasm Of Bladder (HCC) Medication Therapy Medical Records Clerk Not Anticoagulant Medical Records Clerk Current Drug Therapy, Chemotherapy CBC WITH DIFFERENTIAL, B Routine 11/20/2024 10:57 AM CDT Malignant Neoplasm Of Bladder (HCC) Medication Therapy Alf Not Anticoagulant Alf Current Drug Therapy, Chemotherapy US LOWER EXTREMITY VEINS LEFT RAD - Routine (most inpatients and all outpatients) 11/12/2024 10:34 AM CDT Malignant Neoplasm Of Bladder (HCC) Swelling Leg Left COMPREHENSIVE METABOLIC PANEL, S/P Routine 11/07/2024 11:20 AM CDT Malignant Neoplasm Of Bladder (HCC) Medication Therapy Alf Not Anticoagulant Alf Current Drug Therapy, Chemotherapy CBC CHEMO - NO ALERTS Routine 11/07/2024 11:20 AM CDT Malignant Neoplasm Of Bladder (HCC) Medication Therapy Alf Not Anticoagulant Alf Current Drug Therapy, Chemotherapy THYROID FUNCTION CASCADE, S Routine 10/30/2024 9:03 AM CDT Malignant Neoplasm Of Bladder (HCC) Other Alf Current Drug Therapy COMPREHENSIVE METABOLIC PANEL, S/P Routine 10/30/2024 9:03 AM CDT Malignant Neoplasm Of Bladder (HCC) Medication Therapy Alf Not Anticoagulant Alf Current Drug Therapy, Chemotherapy CBC WITH DIFFERENTIAL, B Routine 10/30/2024 9:03 AM CDT Malignant Neoplasm Of Bladder (HCC) Medication Therapy Medical Records Clerk Not Anticoagulant Alf Current Drug Therapy, Chemotherapy CT ABDOMEN PELVIS WITH IV CONTRAST RAD - Semiurgent (Fast; most ED patients; some inpatients) 04/11/2020 9:32 PM BOOK MENDER from Last 3 Months or Most Recently Relevant to Health Maintenance Results * (ABNORMAL) CBC, Chemotherapy, No Alerts (01/07/2025 8:47 AM CDT) Only the most recent of4 resultswithin the time period is included. Pathologist [facility] Hemoglobin 11.0(L) 13.2 - 16.6 g/dL 01/07/2025 9:05 AM CDT [facility] Platelet Count 231 135 - 317 x10(9)/L 01/07/2025 9:05 AM CDT [facility] Leukocytes 6.8 3.4 - 9.6 x10(9)/L 01/07/2025 9:05 AM CDT [facility] Neutrophils 3.37 1.56 - 6.45 x10(9)/L 01/07/2025 9:05 AM CDT [facility] Blood (Blood, Venous) 01/07/2025 8:47 AM CDT 01/07/2025 9:03 AM CDT Opal Marcano M.D. LAB BLOOD ADD-ON Final Resul t [facility] [address] [place] [address], [place] METH [facility] [address] [place] [address] DHPM [facility] [address] [place] [address] * (ABNORMAL) Comprehensive Metabolic Panel (01/07/2025 8:47 AM CDT) Only the most recent of8 resultswithin the time period is included. [facility] Potassium, S 4.6 3.6 - 5.2 mmol/L [...] M.D. LAB BLOOD ADD-ON Final Resul t [facility] [employer] [facility] [address] [place] [address], [facility] [address] [address] * (ABNORMAL) CBC with Differential, Blood (12/31/2024 2:39 PM CDT) Only the most recent of4 [...] M.D. LAB BLOOD ADD-ON Final Resul t [facility] [address] [place] [address], [facility] DTL [facility] [address] [place] [address] [facility] [address] [place] [address] * CT Urogram without and with IV [...] metastatic disease in the abdomenor pelvis. Polo LUIS CT PROCEDURES Final Result * [...] M.D. IM CT PROCEDURES Final Result * US Lower [...] and management can be found on the [employer] site. Link [email or web address]/[email or web address] Procedure Note Wilian Bone M.D. - 12/18/2024 [...] thrombosis and management can be found on the[employer] site. [email or web address]/[email or web address] 1725 IMPRESSION: Negative for acute DVT. Yaritza Nance APRN, C.N.P., M.S.N. [facility] Jazlyn WEINBERG Final Result * Thyroid Function [place] (12/10/2024 12:49 PM CDT) Only the most recent of2 resultswithin the time period is included. TSH, Sensitive 0.7 0.3 - 4.2 mIU/L 12/10/2024 2:00 PM CDT DTL Blood (Blood, Venous) 12/10/2024 12:49 PM CDT 12/10/2024 12:55 PM CDT us Opal Marcano M.D. LAB BLOOD ADD-ON Final Resul t [facility] [address] [place] [address], [place] [facility] [place]note 2[facility] [address] [place] [address] * CT Abdomen Pelvis with IV Contrast (04/11/2020 9:32 PM BOOK MENDER) Anatomical Region Laterality Modality Abdomen, Pelvis, Abdominal R ST LOS, Abdominal ARZ LOS, Abdominal FLA LOS N/A Computed Tomograp hy, Computed Tomography 04/11/2020 9:41 PM BOOK MENDER Impressions 04/11/2020 10:07 PM BOOK MENDER 1. No evidence of recent or active hemorrhage within the abdomen or pelvis. 2. Bladder wall thickening and adjacent stranding and mild ureterectasis and periureteral stranding of the lower ureters is nonspecific but can be seen in the setting of cystitis with early ascending infection. 3. Acute pulmonary embolism in the left lower lobe. Narrative 04/11/2020 10:07 PM BOOK MENDER EXAM: CT ABDOMEN PELVIS WITH IV CONTRAST [...] lung. Findings were discussed with Dr. Fritz ([phone]) at 10:06 PM on 04/11/2020.. Procedure Note [...] lowerlung. Findings were discussed with Dr. Fritz ([phone]) at 10:06 PM on04/11/2020.. IMPRESSION: 1. No [...] Indicated Protective Environment 11/01/2024 5 Insurance MEDICARE [facility] Advance Directives For more information, please contact: [phone] * Full Code (Latest Code Status on File) Date Activated Date Inactivated Comments 10/09/2024 9:06 PM 10/12/2024 6:11 PM Question Answer Comments Full Code: Discussed * Full Code Date Activated Date Inactivated Comments 04/12/2020 1:07 PM 04/15/2020 6:07 PM Question Answer Comments Full Code: Discussed 04/12/2020 Care Teams Grievance And Appeals Coordinator Relationship Specialty Start Date End Date Elsewhere, Pcp PCP - General Internal Medicine 10/09/24
--- OUTSIDE RECORDS SUMMARY | 2025-01-18 14:56 | XMS_ITS ---
Author Organization [facility] Address [address] [place] [address] Care Team Providers Care [employer] Worker Name Role Phone Elsewhere, Pcp Primary Care Provider Unavailabl e Active Problems * This document contains information received from the source organization and may not represent a complete record from that organization. 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 We will proceed with medical therapy for chronic stable CAD. Hyperlipidemia 02/28/2012 Current Treatment and Therapy Plans Enfortumab vedotin-ejfv / Pembrolizumab* Plan Start Date:10/16/2024 Plan Provider:Polo Dwyer M.D. 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)Medication Therapy [employer] Manager Not AnticoagulantLong Term Current Drug Therapy, Chemotherapy [...]
--- OUTSIDE RECORDS SUMMARY | 2025-01-18 14:56 | XMS_ITS | Encounter Summary ---
Author Organization [facility] Address [address] [place] [address] Care Team Providers Care Measurement Advisor Name Role Phone Elsewhere, Pcp Primary Care Provider Unavailabl e Encounter Details Date Type Department Care Team (Late st Contact Info) Description 01/11/2025 Clinical Communication Department of Urology in [place], [place] [address] [place] [address] Pema Rojas M.D. [address] [place] [phone] Social History Tobacco Use Types Packs/Day Years Used Date Smoking Tobacco: Former Smokeless Tobacco: Never Alcohol Use Standard Drinks/Week Comments Yes 3 (1 standard drink = 0.6 oz pur e alcohol) [facility] Utilities Answer Date Recorded In the past 12 months has [facility], gas, oil, or water [employer] threatened to shut off services in your [...] your living situation today? I have a [facility] place to live 10/09/2024 Education Answer Date Recorded What is the highest level of school you have completed or the highest degree you have received? 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 [address] [place] [phone] 01/21/2025 1:30 PM CDT Office Visit Division of Hematology in [place], [place] 200 [place] [phone] Polo Dwyer M.D. [address] [place] [phone] 01/21/2025 2:30 PM CDT Infusion Department of Oncology in [place], [place] [address] [place] [phone] Opal Marcano M.D. [address] [place] [phone] 01/28/2025 9:00 AM INVENTORY CONTROL PLANNER Lab Department of Laboratory Medicine and Pathology, [facility] in [place], [place] [address] [place] [phone] Opal Marcano M.D. [address] [place] [phone] 01/28/2025 11:00 AM INVENTORY CONTROL PLANNER Infusion Department of Oncology in [place], [place] [address] [place] [phone] Opal Marcano M.D. [address] [place] [phone] 04/03/2025 3:00 PM INVENTORY CONTROL PLANNER Office Visit Department of Urology in [place], [place] [address] [place] [phone] Pema Rojas M.D. [address] [place] [phone] documented as of this encounter Visit Diagnoses Not on filedocumented in this encounter Additional Health Concerns Infection Onset Date Last Indicated Resolved Time Protective Environment 11/01/2024 11/01/2024 documented as of this encounter Care Teams Measurement Advisor Relationship Specialty Start Date End Date Elsewhere, Pcp PCP - General Internal Medicine 10/09/24 documented as of this encounter
--- OUTSIDE RECORDS SUMMARY | 2025-01-18 14:56 | XMS_ITS | Encounter Summary ---
Author Organization [facility] Address [address] [place] [address] Care Team Providers Care Wax Bleacher Name Role Phone Elsewhere, Pcp Primary Care Provider Unavailabl e Reason for Visit * Reason Onset Date Comments Order Request 11/07/2024 Encounter Details Date Type Department Care Team ([facility] st Contact Info) Description 11/07/2024 Clinical Communication Division of Hematology in [place], [place] [address] [place] [phone] Polo Dwyer M.D. [address] [place] [phone] Order Request Social History Tobacco Use Types Packs/Day Years Used Date Smoking Tobacco: Former Smokeless Tobacco: Never Alcohol Use Standard Drinks/Week Comments Yes 3 (1 standard drink = 0.6 oz pur e alcohol) [facility] Utilities Answer Date Recorded In the past 12 months has [facility] [employer], gas, oil, or water [employer] threatened to shut off services in your [...] your living situation today? I have a [facility] place to live 10/09/2024 Education Answer Date Recorded What is the highest level of school you have completed or the highest degree you have received? 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 200 [place] [phone] 01/21/2025 1:30 PM CDT Office Visit Division of Hematology in [place], [place] 200 [place] [phone] Polo Dwyer M.D. [address] [place] [phone] 01/21/2025 2:30 PM CDT Infusion Department of Oncology in [place], [place] [address] [place] [phone] Opal Marcano M.D. [address] [place] [phone] 01/28/2025 9:00 AM CAR DRIVER Lab Department of Laboratory Medicine and Pathology, [facility] in [place], [place] [address] [place] [phone] Opal Marcano M.D. [address] [place] [phone] 01/28/2025 11:00 AM CAR DRIVER Infusion Department of Oncology in [place], [place] [address] [place] [phone] Opal Marcano M.D. [address] [place] [phone] 04/03/2025 3:00 PM CAR DRIVER Office Visit Department of Urology in [place], [place] [address] [place] [phone] Pema Rojas M.D. [address] [place] [phone] documented as of this encounter Visit Diagnoses Not on filedocumented in this encounter Additional Health Concerns Infection Onset Date Last Indicated Resolved Time Protective Environment 11/01/2024 11/01/2024 documented as of this encounter Care Teams Wax Bleacher Relationship Specialty Start Date End Date Elsewhere, Pcp PCP - General Internal Medicine 10/09/24 documented as of this encounter
--- OUTSIDE RECORDS SUMMARY | 2025-01-18 14:56 | XMS_ITS | Encounter Summary ---
Author Organization [facility] Address [address] [place] [address] Care Team Providers Care Levers Lace Machine Operator Name Role Phone Elsewhere, Pcp Primary Care Provider Unavailabl e Encounter Details Date Type Department Care Team (Late st Contact Info) Description 12/11/2024 Orders Only Department of Oncology in [place], [place] [address] [place] [phone] Zuri Pichardo P.AMak-Shayna. [address] [place] [phone] Social History Tobacco Use Types Packs/Day Years Used Date Smoking Tobacco: Former Smokeless Tobacco: Never Alcohol Use Standard Drinks/Week Comments Yes 3 (1 standard drink = 0.6 oz pur e alcohol) [facility] Utilities Answer Date Recorded In the past 12 months has [facility] [employer], gas, oil, or water [employer] threatened [...] living situation today? I have a [facility] place to live 10/09/2024 Education Answer Date Recorded What is the highest level of school you have completed or the highest degree you have received? 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, IRRIGATION SUPERVISOR, BERTA) 05/11/2020 Sex and Gender Information Value Date Recorded Sex Assigned at Male 09/04/2024 9:32 AM CDT Legal Sex Male 5:45 PM RESISTANCE MACHINE WELDER SETTER Gender Identity Male 09/04/2024 9:32 AM CDT Sexual Orientation Straight 09/04/2024 9: 32 AM CDT documented as of this encounter Plan of Treatment Upcoming Encounters Date Type Department Care Team (Late st Contact Info) Description 01/21/2025 11:30 AM CDT Lab Department of Laboratory Medicine and Pathology, [facility], in [place], [place] 200 [place] [phone] Opal Marcano M.D. 200 [place] [phone] 01/21/2025 1:30 PM CDT Office Visit Division of Hematology in [place], [place] 200 [place] [phone] Polo Dwyer M.D. [address] [place] [phone] 01/21/2025 2:30 PM CDT Infusion Department of Oncology in [place], [place] [address] [place] [phone] Opal Marcano M.D. [address] [place] [phone] 01/28/2025 9:00 AM RESISTANCE MACHINE WELDER SETTER Lab Department of Laboratory Medicine and Pathology, [facility], in [place], [place] [address] [place] [phone] Opal Marcano M.D. [address] [place] [phone] 01/28/2025 11:00 AM RESISTANCE MACHINE WELDER SETTER Infusion Department of Oncology in [place], [place] [address] [place] [phone] Opal Marcano M.D. [address] [place] [phone] 04/03/2025 3:00 PM RESISTANCE MACHINE WELDER SETTER Office Visit Department of Urology in [place], [place] [address] [place] [phone] Pema Rojas M.D. [address] [place] [phone] documented as of this encounter Visit Diagnoses Not on filedocumented in this encounter Additional Health Concerns Infection Onset Date Last Indicated Resolved Time Protective Environment 11/01/2024 11/01/2024 documented as of this encounter Care Teams Levers Lace Machine Operator Relationship Specialty Start Date End Date Elsewhere, Pcp PCP - General Internal Medicine 10/09/24 documented as of this encounter
--- OUTSIDE RECORDS SUMMARY | 2025-01-18 14:57 | XMS_ITS | Encounter Summary ---
Author Organization [facility] Address [address] [place] [address] Care Team Providers Care Lead Tank Mechanic Name Role Phone Elsewhere, Pcp Primary Care Provider Unavailabl e Reason for Referral * Outpatient (Routine) Specialty Diagnoses / Procedures Referred By Keiko latif Referred To Contact Oncology Diagnoses Malignant Neoplasm Of Bladder (HCC) Medication Therapy Upholsterer Limousine [place]se Not Anticoagulant Half-Way Current Drug Therapy, Chemotherapy Opal Marcano M.D. 200 [place] [address] Phone: tel: fax: [facility] Referral ID Status Reason Start Date Expiration Date Visits Re quested Visits Authorized * Outpatient (Routine) Specialty Diagnoses / Procedures Referred By Keiko latif Referred To Contact Oncology Diagnoses Malignant Neoplasm Of Bladder (HCC) Medication Therapy Upholsterer Limousine [place]se Not Anticoagulant Half-Way Current Drug Therapy, Chemotherapy Opal Marcano M.D. 200 [place] [address] Phone: tel: fax: [facility] Referral ID Status Reason Start Date Expiration Date Visits Re quested Visits Authorized * Outpatient (Routine) Specialty Diagnoses / Procedures Referred By Keiko latif Referred To Contact Oncology Diagnoses Malignant Neoplasm Of Bladder (HCC) Medication Therapy Half-Way Not Anticoagulant Half-Way Current Drug Therapy, Chemotherapy Opal Marcano M.D. [address] [place] [address] Phone: tel: fax: [facility] Referral ID Status Reason Start Date Expiration Date Visits Re quested Visits Authorized Encounter Details Date Type Department Care Team (Late st Contact Info) Description 11/19/2024 Orders Only Department of Oncology in [place], [place] [address] [place] [phone] Opal Marcano M.D. [address] [place] [phone] Malignant Neoplasm Of Bladder (HCC) (Primary Dx); Medication Therapy Half-Way Not Anticoagulant; Upholsterer Limousine [place]se Current Drug Therapy, Chemotherapy Social History Tobacco Use Types Packs/Day Years Used Date Smoking Tobacco: Former Smokeless Tobacco: Never Alcohol Use Standard Drinks/Week Comments Yes 3 (1 standard drink = 0.6 oz pur e alcohol) [facility] Utilities Answer Date Recorded In the past 12 months has [facility] [employer], gas, oil, or water [employer] threatened to shut off services in [...] 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, SHIRT FINISHER, BERTA) 05/11/2020 Sex and Gender Information Value Date Recorded Sex Assigned at Male 09/04/2024 9:32 AM CDT Legal Sex Male 5:45 PM SUPPORTIVE EMPLOYMENT CASE MANAGER Gender Identity Male 09/04/2024 9:32 AM CDT Sexual Orientation Straight 09/04/2024 9: 32 AM CDT documented as of this encounter Plan of Treatment Upcoming Encounters Date Type Department Care Team (Late st Contact Info) Description 01/21/2025 11:30 AM CDT Lab Department of Laboratory Medicine and Pathology, [facility], in [place], [place] [address] [place] [address] Opal Marcano M.D. [address] [place] [address] 01/21/2025 1:30 PM CDT Office Visit Division of Hematology in [place], [place] [address] [place] [phone] Polo Dwyer M.D. [address] [place] [phone] 01/21/2025 2:30 PM CDT Infusion Department of Oncology in [place], [place] [address] [place] [phone] Opal Marcano M.D. [address] [place] [phone] 01/28/2025 9:00 AM SUPPORTIVE EMPLOYMENT CASE MANAGER Lab Department of Laboratory Medicine and Pathology, [facility], in [place], [place] [address] [place] [address] Opal Marcano M.D. [address] [place] [phone] 01/28/2025 11:00 AM SUPPORTIVE EMPLOYMENT CASE MANAGER Infusion Department of Oncology in [place], [place] [address] [place] [phone] Opal Marcano M.D. [address] [place] [phone] 04/03/2025 3:00 PM SUPPORTIVE EMPLOYMENT CASE MANAGER Office Visit Department of Urology in [place], [place] [address] [place] [phone] Pema Rojas M.D. [address] [place] [phone] Scheduled Orders Name Type Priority Associated Diagnoses Orde r Schedule CBC with Differential, Blood Lab Routine Malignant Neoplasm Of Bladder (HCC) Medication Therapy Upholsterer Limousine [place] Not Anticoagulant Half-Way Current Drug Therapy, Chemotherapy Expected: 01/24/2025, Expires: 01/25/2028 Comprehensive Metabolic Panel Lab Routine Malignant Neoplasm Of Bladder (HCC) Medication Therapy Upholsterer Limousine [place] Not Anticoagulant Upholsterer [place]ousine [employer] [place]se Current Drug Therapy, Chemotherapy Expected: 01/24/2025, Expires: 01/24/2026 Thyroid Function Ada Lab Routine Malignant Neoplasm Of Bladder (HCC) Medication Therapy Upholsterer [place]ous[place] Not Anticoagulant Upholsterer [place] [employer] [place] Current Drug Therapy, Chemotherapy Expected: 01/24/2025, Expires: 01/24/2026 CBC, Chemotherapy, No Alerts Lab Routine Malignant Neoplasm Of Bladder (HCC) Medication Therapy Half-Way Not Anticoagulant Half-Way Current Drug Therapy, Chemotherapy Expected: 01/31/2025, Expires: 01/31/2026 Comprehensive Metabolic Panel Lab Routine Malignant Neoplasm Of Bladder (HCC) Medication Therapy Upholsterer [place]ousine [place] Not Anticoagulant Upholsterer [place]ous[place] [employer] [place] Current Drug Therapy, Chemotherapy Expected: 01/31/2025, Expires: 01/31/2026 Scheduled Referrals Name Type Priority Associated Diagnoses Orde r Schedule Oncology office visit (clinic) Outpatient Referral Routine Malignant Neoplasm Of Bladder (HCC) Medication Therapy Upholsterer [place] Not Anticoagulant Half-Way Current Drug Therapy, Chemotherapy Expected: 12/13/2024, Expires: 03/15/2026 Oncology office visit (clinic) Outpatient Referral Routine Malignant Neoplasm Of Bladder (HCC) Medication Therapy Upholsterer [place] Not Anticoagulant Upholsterer [place] [employer] [place] Current Drug Therapy, Chemotherapy Expected: 01/03/2025, Expires: 04/05/2026 Oncology office visit (clinic) Outpatient Referral Routine Malignant Neoplasm Of Bladder (HCC) Medication Therapy Half-Way Not Anticoagulant Upholsterer [place]ousine [employer] [place] Current Drug Therapy, Chemotherapy Expected: 01/24/2025, Expires: 04/26/2026 documented as of this encounter Results * (ABNORMAL) Comprehensive Metabolic Panel (01/07/2025 8:47 AM CDT) Potassium, S 4.6 3.6 - [...] 8:47 AM CDT 01/07/2025 9:17 AM CDT Opal Marcano M.D. LAB BLOOD ADD-ON Final Resul t [address] [address], [facility] [place] [address] * (ABNORMAL) CBC, Chemotherapy, No Alerts (01/07/2025 8:47 AM CDT) Hemoglobin 11.0(L) 13.2 - 16.6 g/dL 01/07/2025 9:05 AM CDT [facility] Platelet Count 231 135 - 317 x10(9)/L 01/07/2025 9:05 AM CDT [facility] Leukocytes 6.8 3.4 - 9.6 x10(9)/L 01/07/2025 9:05 AM CDT [facility] Neutrophils 3.37 1.56 - 6.45 x10(9)/L 01/07/2025 9:05 AM CDT [facility] Blood (Blood, Venous) 01/07/2025 8:47 AM CDT 01/07/2025 9:03 AM CDT us Opal Marcano M.D. LAB BLOOD ADD-ON Final Resul t [facility] [address] [place] [address], [place] METH [facility] [address] [place] [address] DHPM [facility] [address] [place] [address] * (ABNORMAL) Comprehensive Metabolic Panel (12/31/2024 2:39 PM CDT) [facility] Potassium, S 4.2 3.6 - 5.2 mmol/L [...] 2:39 PM CDT 12/31/2024 2:49 PM CDT us Opal Marcano M.D. LAB BLOOD ADD-ON Final Resul t [facility] [address] [place] [address], [facility] DTL [place] [address] [place] [address] * (ABNORMAL) CBC with Differential, Blood (12/31/2024 [...] M.D. LAB BLOOD ADD-ON Final Resul t [facility] [address] [place] [address], [facility] DTL [facility] [address] [place] [address] [facility] [address] [place] [address] * (ABNORMAL) Comprehensive Metabolic Panel (12/17/2024 12:50 PM CDT) [facility] Potassium, S 5.0 3.6 - 5.2 mmol/L [...] 12:50 PM CDT 12/17/2024 12:57 PM CDT us Opal Marcano M.D. LAB BLOOD ADD-ON Final Resul t [facility] [address] [place] [address], [facility] [address] [place] [address] * (ABNORMAL) CBC, Chemotherapy, No Alerts (12/17/2024 [...] 12:50 PM CDT 12/17/2024 12:55 PM CDT Opal Marcano M.D. LAB BLOOD ADD-ON Final Resul t Performing Organization Address City/[facility]/ZIP Co de Phone Number [facility] [address] [place] [address], [facility] METH [facility] 200 [place] [address] DHPM [facility] 200 [place] [address] * Thyroid Function Ada (12/10/2024 12:49 PM CDT) TSH, Sensitive 0.7 0.3 - 4.2 mIU/L 12/10/2024 2:00 PM CDT DTL Blood (Blood, Venous) 12/10/2024 12:49 PM CDT 12/10/2024 12:55 PM CDT us Opal Marcano M.D. LAB BLOOD ADD-ON Final Resul t Performing Organization Address [facility] Co de Phone Number [facility] [address] [place] [address], [facility] DTL [facility] 200 [place] [address] * (ABNORMAL) Comprehensive Metabolic Panel (12/10/2024 12:49 PM CDT) Potassium, S 4.7 3.6 - 5.2 mmol/L [...] M.D. LAB BLOOD ADD-ON Final Resul t [facility] [address] [place] [address], [place] DTL [facility] [address] [place] [address] * (ABNORMAL) CBC with Differential, Blood (12/10/2024 [...] M.D. LAB BLOOD ADD-ON Final Resul t [facility] [address] [place] [address], [facility] DTL [facility] [address] [place] [address] [facility] [address] [place] [address] documented in this encounter Visit Diagnoses Diagnosis Malignant Neoplasm Of Bladder (HCC)- Primary Medication Therapy Upholsterer [place] Not Anticoagulant Upholsterer [place] Current Drug Therapy, Chemotherapy documented in this encounter Additional Health Concerns Infection Onset Date Last Indicated Resolved Time Protective Environment 11/01/2024 11/01/2024 documented as of this encounter Care Teams Lead Tank Mechanic Relationship Specialty Start Date End Date Elsewhere, Pcp PCP - General Internal Medicine 10/09/24 documented as of this encounter
--- OUTSIDE RECORDS SUMMARY | 2025-01-18 14:57 | XMS_ITS | Encounter Summary ---
Author Organization [facility] Address [address] [place] [address] Care Team Providers Care Operations Leader Name Role Phone Elsewhere, Pcp Primary Care Provider Unavailabl e Reason for Visit * Reason Onset Date Comments Order Request 12/31/2024 Encounter Details Date Type Department Care Team ([facility] st Contact Info) Description 12/31/2024 Clinical Communication Division of Hematology in [place], [place] [address] [place] [phone] Polo Dwyer M.D. [address] [place] [phone] Order Request Social History Tobacco Use Types Packs/Day Years Used Date Smoking Tobacco: Former Smokeless Tobacco: Never Alcohol Use Standard Drinks/Week Comments Yes 3 (1 standard drink = 0.6 oz pur e alcohol) [facility] Utilities Answer Date Recorded In the past 12 months has [facility] [employer], gas, oil, or water [employer] threatened to shut off services in your [...] your living situation today? I have a [facility] place to live 10/09/2024 Education Answer Date Recorded What is the highest level of school you have completed or the highest degree you have received? 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, GREENHOUSE SUPERINTENDENT, BERTA) 05/11/2020 Sex and Gender Information Value Date Recorded Sex Assigned at Male 09/04/2024 9:32 AM CDT Legal Sex Male 5:45 PM EXPERIMENTAL MACHINIST Gender Identity Male 09/04/2024 9:32 AM CDT Sexual Orientation Straight 09/04/2024 9: 32 AM CDT documented as of this encounter Plan of Treatment Upcoming Encounters Date Type Department Care Team (Late st Contact Info) Description 01/21/2025 11:30 AM CDT Lab Department of Laboratory Medicine and Pathology, [facility], in [place], [place] [address] [place] [phone] Opal Marcano M.D. 200 [place] [phone] 01/21/2025 1:30 PM CDT Office Visit Division of Hematology in [place], [place] 200 [place] [phone] Polo Dwyer M.D. [address] [place] [phone] 01/21/2025 2:30 PM CDT Infusion Department of Oncology in [place], [place] [address] [place] [phone] Opal Marcano M.D. [address] [place] [phone] 01/28/2025 9:00 AM EXPERIMENTAL MACHINIST Lab Department of Laboratory Medicine and Pathology, [facility] in [place], [place] [address] [place] [phone] Opal Marcano M.D. [address] [place] [phone] 01/28/2025 11:00 AM EXPERIMENTAL MACHINIST Infusion Department of Oncology in [place], [place] [address] [place] [phone] Opal Marcano M.D. [address] [place] [phone] 04/03/2025 3:00 PM EXPERIMENTAL MACHINIST Office Visit Department of Urology in [place], [place] [address] [place] [phone] Pema Rojas M.D. [address] [place] [phone] documented as of this encounter Visit Diagnoses Not on filedocumented in this encounter Additional Health Concerns Infection Onset Date Last Indicated Resolved Time Protective Environment 11/01/2024 11/01/2024 documented as of this encounter Care Teams Operations Leader Relationship Specialty Start Date End Date Elsewhere, Pcp PCP - General Internal Medicine 10/09/24 documented as of this encounter
--- OUTSIDE RECORDS SUMMARY | 2025-01-18 14:57 | XMS_ITS | Encounter Summary ---
Author Organization [facility] Address [address] [place] [address] Care Team Providers Care Predator Control Trapper Name Role Phone Elsewhere, Pcp Primary Care Provider Unavailabl e Encounter Details Date Type Department Care Team (Late st Contact Info) Description 11/20/2024 Orders Only Department of Oncology in [place], [place] [address] [place] [phone] Nasir Hamilton M.D., Ph.D. [address] [place] [phone] Social History Tobacco Use Types Packs/Day Years Used Date Smoking Tobacco: Former Smokeless Tobacco: Never Alcohol Use Standard Drinks/Week Comments Yes 3 (1 standard drink = 0.6 oz pur e alcohol) [facility] Utilities Answer Date Recorded In the past 12 months has [facility] [employer], gas, oil, or water [employer] threatened to shut off services in your [...] your living situation today? I have a [facility] place to live 10/09/2024 Education Answer Date Recorded What is the highest level of school you have completed or the highest degree you have received? 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, CLERICAL AIDE, BERTA) 05/11/2020 Sex and Gender Information Value Date Recorded Sex Assigned at Male 09/04/2024 9:32 AM CDT Legal Sex Male 5:45 PM GLASSWARE MAKER DEMONSTRATOR Gender Identity Male 09/04/2024 9:32 AM CDT Sexual Orientation Straight 09/04/2024 9: 32 AM CDT documented as of this encounter Plan of Treatment Upcoming Encounters Date Type Department Care Team (Late st Contact Info) Description 01/21/2025 11:30 AM CDT Lab Department of Laboratory Medicine and Pathology, [facility], in [place], [place] 200 [place] [phone] Opal Marcano M.D. [address] [place] [phone] 01/21/2025 1:30 PM CDT Office Visit Division of Hematology in [place], [place] 200 [place] [phone] Polo Dwyer M.D. [address] [place] [phone] 01/21/2025 2:30 PM CDT Infusion Department of Oncology in [place], [place] [address] [place] [phone] Opal Marcano M.D. [address] [place] [phone] 01/28/2025 9:00 AM GLASSWARE MAKER DEMONSTRATOR Lab Department of Laboratory Medicine and Pathology, [facility], in [place], [place] [address] [place] [phone] Opal Marcano M.D. [address] [place] [phone] 01/28/2025 11:00 AM GLASSWARE MAKER DEMONSTRATOR Infusion Department of Oncology in [place], [place] [address] [place] [phone] Opal Marcano M.D. [address] [place] [phone] 04/03/2025 3:00 PM GLASSWARE MAKER DEMONSTRATOR Office Visit Department of Urology in [place], [place] [address] [place] [phone] Pema Rojas M.D. [address] [place] [phone] documented as of this encounter Visit Diagnoses Not on filedocumented in this encounter Additional Health Concerns Infection Onset Date Last Indicated Resolved Time Protective Environment 11/01/2024 11/01/2024 documented as of this encounter Care Teams Predator Control Trapper Relationship Specialty Start Date End Date Elsewhere, Pcp PCP - General Internal Medicine 10/09/24 documented as of this encounter
--- OUTSIDE RECORDS SUMMARY | 2025-01-18 14:57 | XMS_ITS | Encounter Summary ---
Author Organization [facility] Address [address] [place] [address] Care Team Providers Care Tooling Engineer Name Role Phone Elsewhere, Pcp Primary Care Provider Unavailabl e Reason for Visit * Reason Onset Date Comments 12/10 OV 11/19/2024 Encounter Details Date Type Department Care Team (Late st Contact Info) Description 11/19/2024 Clinical Communication Division of Hematology in [place], [place] [address] [place] [phone] Polo Dwyer M.D. [address] [place] [phone] 12/10 OV Social History Tobacco Use Types Packs/Day Years Used Date Smoking Tobacco: Former Smokeless Tobacco: Never Alcohol Use Standard Drinks/Week Comments Yes 3 (1 standard drink = 0.6 oz pur e alcohol) [facility] Utilities Answer Date Recorded In the past 12 months has [facility] [email or web address], gas, oil, or water [employer] threatened to shut off services in your [...] 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, METAL PRODUCTS VIEWER, BERTA) 05/11/2020 Sex and Gender Information Value Date Recorded Sex Assigned at Male 09/04/2024 9:32 AM CDT Legal Sex Male 5:45 PM BAR ATTENDANT Gender Identity Male 09/04/2024 9:32 AM CDT Sexual Orientation Straight 09/04/2024 9: 32 AM CDT documented as of this encounter Plan of Treatment Upcoming Encounters Date Type Department Care Team (Late st Contact Info) Description 01/21/2025 11:30 AM CDT Lab Department of Laboratory Medicine and Pathology, [facility], in [place], [place] 200 [place] [phone] Opal Marcano M.D. 200 [place] [phone] 01/21/2025 1:30 PM CDT Office Visit Division of Hematology in [place], [place] 200 [place] [phone] Polo Dwyer M.D. [address] [place] [phone] 01/21/2025 2:30 PM CDT Infusion Department of Oncology in [place], [place] [address] [place] [phone] Opal Marcano M.D. [address] [place] [phone] 01/28/2025 9:00 AM BAR ATTENDANT Lab Department of Laboratory Medicine and Pathology, [facility], in [place], [place] [address] [place] [phone] Opal Marcano M.D. [address] [place] [phone] 01/28/2025 11:00 AM BAR ATTENDANT Infusion Department of Oncology in [place], [place] [address] [place] [phone] Opal Marcano M.D. [address] [place] [phone] 04/03/2025 3:00 PM BAR ATTENDANT Office Visit Department of Urology in [place], [place] [address] [place] [phone] Pema Rojas M.D. [address] [place] [phone] documented as of this encounter Visit Diagnoses Not on filedocumented in this encounter Additional Health Concerns Infection Onset Date Last Indicated Resolved Time Protective Environment 11/01/2024 11/01/2024 documented as of this encounter Care Teams Tooling Engineer Relationship Specialty Start Date End Date Elsewhere, Pcp PCP - General Internal Medicine 10/09/24 documented as of this encounter
--- OUTSIDE RECORDS SUMMARY | 2025-01-18 14:57 | XMS_ITS | Patient Health Record ---
Author Organization [facility] Address [address] 200 [place] [address] Care Team Providers Care Rn Intern Name Role Phone Osorio Galvan Primary Care Provider PEGGY Sainz Unavailable [phone] Reason For Referral No Information Social History Tobacco Use: Social History Observation Description Date Details (start date - stop date) Former Smoker NA - NA Social History Tobacco Use: Social Info Question Answer Notes Tobacco use/smoking Are you a former smoker Problems Problem Type SNOMED Code ICD Code Onset Dates Problem Status W/U Status Risk Notes Problem Hoarseness (81189212) Hoarseness (R49.0) Active confirmed Problem Dysphagia (00954496) Dysphagia (R13.10) Active confirmed Plan Of Treatment No Information Insurance Providers Payer Name Payer Address Payer Phone Subscriber Number Group Number Insured Name Patient Relationship to Insured Coverage Start Date Coverage End Date MEDICARE [address] [place] [address] [id number] YaoHernandez peña Self - patient is the insured [employer] Supplement[employer] l [address] [place], [place] [id number] Hernandez Samayoa Self - patient is the insured Medical (General) History Medical History History ICD Code sleep apnea Surgical History Surgery Date(Month/Year) throat/ epiglotis back
--- OUTSIDE RECORDS SUMMARY | 2025-01-18 14:57 | XMS_ITS | Encounter Summary ---
Author Organization [facility] Address [address] [place] [address] Care Team Providers Care Hawk Missile System Crewmember Name Role Phone Elsewhere, Pcp Primary Care Provider Unavailabl e Encounter Details Date Type Department Care Team (Late st Contact Info) Description 12/31/2024 Orders Only Department of Oncology in [address] [place] [phone] Nasir Hamilton M.D., Ph.D. [address] [place] [phone] Social History Tobacco Use Types Packs/Day Years Used Date Smoking Tobacco: Former Smokeless Tobacco: Never Alcohol Use Standard Drinks/Week Comments Yes 3 (1 standard drink = 0.6 oz pur e alcohol) [facility] Utilities Answer Date Recorded In the past 12 months has [facility] [employer], gas, oil, or water [employer] threatened to shut off services in your [...] 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, HORSES OR MULES TEAMSTER, BERTA) 05/11/2020 Sex and Gender Information Value Date Recorded Sex Assigned at Male 09/04/2024 9:32 AM CDT Legal Sex Male 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 [address] [place] [phone] 01/21/2025 1:30 PM CDT Office Visit Division of Hematology in 200 [place] [phone] Polo Dwyer M.D. [address] [place] [phone] 01/21/2025 2:30 PM CDT Infusion Department of Oncology in [address] [place] [phone] Opal Marcano M.D. [address] [place] [phone] 01/28/2025 9:00 AM WOOD SETTER Lab Department of Laboratory Medicine and Pathology, [facility], in [address] [place] [address] Opal Marcano M.D. [address] [place] [phone] 01/28/2025 11:00 AM WOOD SETTER Infusion Department of Oncology in [address] [place] [phone] Opal Marcano M.D. [address] [place] [phone] 04/03/2025 3:00 PM WOOD SETTER Office Visit Department of Urology in [address] [place] [phone] Pema Rojas M.D. [address] [place] [phone] documented as of this encounter Visit Diagnoses Not on filedocumented in this encounter Additional Health Concerns Infection Onset Date Last Indicated Resolved Time Protective Environment 11/01/2024 11/01/2024 documented as of this encounter Care Teams Hawk Missile System Crewmember Relationship Specialty Start Date End Date Elsewhere, Pcp PCP - General Internal Medicine 10/09/24 documented as of this encounter
[2025-01-18 15:09] VITALS: BP 111/67; PULSE 58; RESP 16; TEMP 36.2; O2SAT 96
--- OUTSIDE RECORDS SUMMARY | 2025-01-18 15:30 | XMS_ITS | CCD ---
Author Name Interface, [id number] lity Address [address] [place] [address] Oncology Address [address] [place] [address] Reason for Visit Social History Date Name Value 11/24/2024 Sex Male
--- OUTSIDE RECORDS SUMMARY | 2025-01-18 15:30 | XMS_ITS | CCD ---
Author Name Interface, [id number] lity Address [address] [place] [address] Oncology Address [address] [place] [address] Reason for Visit Social History Date Name Value 11/24/2024 Sex Male
--- NOTE | 2025-01-18 15:34 | ED_ITS ---
HPI - General Adult General Chief complaint: Urogenital Problems, Male Stated complaint: Catheter plugged Time Seen by Provider: 01/18/25 15:18 History of Present Illness HPI narrative: Patient is a 79-year-old gentleman who has a catheter in place to help with the treatment of a bladder tumor. Patient was seen yesterday as his bladder catheter was due to be changed. The catheter was changed successfully but today is passing some solid material including some minor clotting. Interestingly the fluid still moved into the catheter bag but is unable to open the catheter bag. Patient has no abdominal pain no fevers no chills no night sweats no cough no shortness of breath. In general no signs of infection. Related Data Home Medications ?Medication ?Instructions ?Recorded ?Confirmed finasteride 5 mg tablet mg 12/07/21 04/10/22 metoprolol succinate 25 mg 25 mg PO DAILY 12/07/21 tablet,extended release 24 hr rosuvastatin 20 mg tablet 20 mg PO 12/07/21 04/10/22 aspirin 81 mg chewable tablet 81 mg PO DAILY 10/23/24 01/17/25 (Jaiden Chewable Low Dose Aspirin) Allergies Allergy/AdvReac Type Severity Reaction Status Date / Time atorvastatin (From Lipitor) Allergy Unknown Verified 01/17/25 11:58 citalopram Allergy Unknown Verified 01/17/25 11:58 Review of Systems Status of ROS: Reports: 10 or more systems reviewed and unremarkable except as noted in History and below [facility] Social History Smoking Status: Former smoker What tobacco products do you use: cigarettes Smoking packs per day: 20 Smoking cigarettes per day: 400.0 Years smoked: 20 Smoking pack-years: 400.00 Smoking quit date/years: >15 years ago Do you use any of these nicotine containing products: None How often do you have a drink containing alcohol: 2-3 times a week How many standard drinks containing alcohol do you have on a typical day: 1 or 2 How often do you have six or more drinks on one occasion: Monthly AUDIT-C Alcohol total score: 5 Non-prescribed substance use: denies use service: No Exam Narrative: Exam Narrative: EXAM GENERAL: Patient appears comfortable and well. EYES: No scleral icterus. LYMPH: No supraclavicular or cervical lymphadenopathy. SKIN: Visible skin seen during exam normal or with benign process only. EXT: No dependent lower extremity pedal edema. HEART: Regular rate and rhythm with no murmurs, rubs, or gallops. LUNGS: Clear to auscultation bilaterally with no crackles or wheezes. ABD: Soft, non tender, non distended. PSYCH: Good eye contact, speech is not pressured. Const: Vital Signs, click to edit/add: Vital Signs - 24 hr 01/18/25 15:09 Temperature 97.2 F L Pulse Rate [Pulse Oximeter] 58 L Respiratory Rate 16 Blood Pressure [Ri ght Upper Arm] 111/67 Pulse Oximetry 96 Oxygen Delivery Me thod Room Air Course Course ED Course: Patient seen examined. Catheter bag was successfully changed. Patient is asymptomatic. I did inform him that he needs to continue to hydrate well and changes bag more frequently as it was near its breaking emil but the time he came in. He is having good urinary output. No signs of bladder distention. This time would continue his current medications and discharged home. I do not think that running a UA would be helpful as patient has gross hematuria from his bladder cancer. Vital Signs Vital signs: Initial Vital Signs Temperature 97.2 F L 01/18/25 15:09 Temperature Source Temporal Artery Scan 01/18/25 15:09 Pulse Rate 58 L 01/18/25 15:09 Respiratory Rate 16 01/18/25 15:09 Blood Pressure 111/67 01/18/25 15:09 Blood Pressure Mean 81 01/18/25 15:09 Blood Pressure Position Sitting 01/18/25 15:09 Pulse Oximetry 96 01/18/25 15:09 Oxygen Delivery Method Room Air 01/18/25 15:09 Vital Signs Temperature 97.2 F L 01/18/25 15:09 Pulse Rate 58 L 01/18/25 15:09 Respiratory Rate 16 01/18/25 15:09 Blood Pressure 111/67 01/18/25 15:09 Pulse Oximetry 96 01/18/25 15:09 Oxygen Delivery Method Room Air 01/18/25 15:09 Temperature 97.2 F L 01/18/25 15:09 Pulse Rate 58 L 01/18/25 15:09 Respiratory Rate 16 01/18/25 15:09 Blood Pressure 111/67 01/18/25 15:09 Pulse Oximetry 96 01/18/25 15:09 Oxygen Delivery Method Room Air 01/18/25 15:09 Discharge Plan Discharge Clinical Impression: Chronic indwelling Bryant catheter Patient Disposition: Home, Self-Care Condition: Stable Instructions: Bryant Catheter Placement and Care (ED) Additional Instructions: Hydrate Empty catheter bag frequently Follow-up with your doctor as needed. Activity Level: No Restrictions Discharge Diet: Regular Prescriptions: No Action metoprolol succinate 25 mg tablet extended release 24 hr 25 mg PO DAILY finasteride 5 mg tablet rosuvastatin 20 mg tablet 20 mg PO aspirin [Jaiden Chewable Aspirin] 81 mg tablet,chewable 81 mg PO DAILY Follow Up/Referrals: Osorio Galvan MD [Primary Care Provider, Family Practice] Stand Alone Forms: Intentive Communicationsth Info Instructions
== END 2025-01-18 16:24 | disposition home or self-care (01) ==
PROVIDERS: Emergency Provider Internal Medicine; PCP Family Medicine
DX: T83.098A Other mechanical complication of other urinary catheter, initial encounter (principal)
CPT/HCPCS: 51798; 99283